=== PATIENT | female | born 1985 | race Caucasian/White ===

== ENCOUNTER 2020-10-08 13:21 | Emergency (ER) | payer OTHER, SELFPAY ==
[2020-10-08] VITALS (7 sets, daily range): BP systolic 136–175; BP diastolic 80–110; PULSE 80–100; RESP 18; TEMP 36.7–37.1; O2SAT 97–98; BMI 59.3
[2020-10-08 14:15] LABS: Glucose Urine UA NEG (NEG); Leukocyte Esterase Urine NEG (NEG); Nitrite Urine NEG (NEG); Urine Blood NEG (NEG); Urine Ketones NEG (NEG); Urine Protein NEG (NEG-TRACE)
[2020-10-08 14:17] LABS: Appearance Urine CLEAR; Color Urine YELLOW
[2020-10-08 14:57] LABS: MANUAL DIFF FLAG NO
[2020-10-08 14:59] LABS: Basophils Absolute Auto 0.1 X10*3/uL (0.0-0.2); Basophils Percent Auto 0.6 % (0-2); Eosinophils Absolute Auto 0.3 X10*3/uL (0.0-0.4); Eosinophils Percent Auto 2.2 % (0-4); Hematocrit 37.2 % (37-47); Imm Gran Abs Auto 0.26 X10*3/uL (0.00-0.03); Imm Gran Pct Auto 2.3 % (0.0-0.4); Lymphocytes Absolute Auto 3.3 X10*3/uL (1.2-4.9); Lymphocytes Percent Auto 28.5 % (20-40); Mean Corpuscular HGB Conc 32.3 g/dl (31.0-35.0); Mean Corpuscular Hemoglobin 29.1 pg (27.0-33.0); Mean Corpuscular Volume 90.3 fL (80-98); Mean Platelet Volume 9.4 fL (9.4-12.3); Monocytes Absolute Auto 0.5 X10*3/uL (0.1-1.2); Monocytes Percent Auto 4.3 % (2-11); Neutrophils Absolute Auto 7.2 X10*3/uL (2.0-8.3); Neutrophils Percent Auto 62.1 % (45-73); Platelet Count 381 X10*3/uL (160-400); Red Blood Count 4.12 X10*6/uL (4.20-5.50); Red Cell Distribution Width 12.5 % (11.0-16.0); White Blood Count 11.5 X10*3/uL (4.8-10.8)
[2020-10-08 15:40] LABS: Anion Gap 14 (12-20); Blood Urea Nitrogen 12 mg/dL (9-16); Calcium 9.4 mg/dL (8.4-10.2); Carbon Dioxide 24 mmol/L (22-29); Chloride 104 mmol/L (96-108); Creatinine Clr Calc Pharmacy 124.2; Estimated Glomerular Filt Rate > 60; Glucose Random 82 mg/dL (60-115); Potassium 4.6 mmol/L (3.3-5.1); Sodium 137 mmol/L (135-145)
--- NOTE | 2020-10-08 16:25 | ECG_ITS ---
Test Reason : NAUSEA Blood Pressure : / mmHG Vent. Rate : 085 BPM Atrial Rate : 085 BPM P-R Int : 128 ms QRS Dur : 094 ms QT Int : 360 ms P-R-T Axes : 047 057 020 degrees QTc Int : 428 ms Normal sinus rhythm Normal ECG When compared with ECG of 15-JAN-2020 11:57, No significant change was found Referred By: Darrian Kenny Electronically Signed By:Ramana Way
[2020-10-08 16:53] LABS: Alanine Aminotransferase 43 U/L (0-31); Alkaline Phosphatase 114 U/L (39-117); Aspartate Amino Transferase 33 U/L (5-31); Bilirubin Direct < 0.2 mg/dL (0.0-0.5); Bilirubin Total 0.5 mg/dL (0.0-1.0); Lipase 11 U/L (8-78); Total Protein 6.9 g/dL (6.5-8.0)
[2020-10-08] MEDS: ondansetron HCL 4 MG/2 ML VIAL IVPUSH (17:03)
[2020-10-08] MEDS: 0.9 % Sodium Chloride 1,000 ML 999 ML IVCONT (17:03)
[2020-10-08 17:37] LABS: Troponin-I High Sensitivity < 3.5 ng/L (<3.5-17.0)
[2020-10-08 18:13] LABS: Appearance Urine CLEAR; Color Urine YELLOW; Glucose Urine UA NEG (NEG); Leukocyte Esterase Urine NEG (NEG); Nitrite Urine NEG (NEG); Specific Gravity - Urine >= 1.030 (1.005-1.025); Urine Blood NEG (NEG); Urine Ketones 5 MG/DL (NEG); Urine Protein NEG (NEG-TRACE)
[2020-10-08 18:55] LABS: UPreg QC Valid YES; Urine Pregnancy NEGATIVE (NEGATIVE)
--- NOTE | 2020-10-08 19:19 | ED.NAVMDI ---
HPI - Nausea/Vomiting/Diarrhea General Chief complaint: Nausea/Vomiting/Diarrhea Stated complaint: N/V/D Time Seen by Provider: 10/08/20 15:59 History of Present Illness HPI Narrative: Attending Dr. Sanders Patient complains of nausea and frequent diarrhea for 5 days, she had some vomiting initially but now just feels nauseous and she is tolerating fluids and light foods, she does still feel mildly dizzy and has felt lightheaded and somewhat dizzy for the last 2 or 3 days, she has not fainted, she has had no chest pain no shortness of breath no palpitations, she has no abdominal pain, known else in the family is sick she has no recent travel no antibiotics, no fever no chills Related Data Previous Rx's Medication Instructions Recorded cetirizine 10 mg tablet 10 mg PO DAILY PRN 90 Days #90 tab 02/08/20 montelukast 10 mg tablet 10 mg PO DAILY 90 Days #90 tab 02/08/20 acetaminophen 650 mg 650 mg PO Q8H PRN 30 Days #90 tab 06/29/20 tablet,extended release nabumetone 750 mg tablet 750 mg PO BID PRN 90 Days #180 tab 06/29/20 fluticasone 232 mcg-salmeterol 14 1 inh PO BID #1 ea 07/03/20 mcg/actuation breath activated powdr tiotropium bromide 2.5 2 puff PO DAILY #12 g 07/23/20 mcg/actuation mist for inhalation topiramate 50 mg tablet 50 mg PO BEDTIME #30 tab 07/23/20 albuterol sulfate 90 mcg/actuation 2 puff PO Q4H PRN #18 g 08/01/20 aerosol inhaler cyclobenzaprine 10 mg tablet 10 mg PO TID PRN 30 Days #90 tab 08/02/20 meclizine 25 mg tablet 25 mg PO DAILY PRN #90 tab 08/06/20 loperamide [Imodium A-D] 2 mg PO Q4H PRN #10 tab 10/08/20 ondansetron HCl [Zofran] 4 mg PO Q6H PRN #10 tab 10/08/20 Allergies Allergy/AdvReac Type Severity Reaction Status Date / Time animal dander [PET DANDER] Allergy Unknown ITCHING Verified 10/08/20 13:49 bee pollen [BEE STINGS] Allergy Unknown SWELLING Verified 10/08/20 13:49 house dust Allergy Unknown Unknown Verified 10/08/20 13:49 shellfish derived Allergy Unknown SWELLING Verified 10/08/20 13:49 [SHELLFISH DERIVED] SEASONAL ALLERGIES Allergy Unknown ITCHING Uncoded 10/08/20 13:49 Review of Systems Review of Systems: Positive for nausea vomiting and diarrhea and dizziness Negatives are no fever no chills no fainting no feeling faint no headache no neck pain no palpitations no chest pain no shortness of breath no abdominal pain no blood in vomitus or stool, no dysuria no frequency, no skin rash, no confusion no weakness no numbness Yes all other systems are reviewed and are negative PMFSH Past Medical History Source: nursing notes reviewed Medical History (Updated 10/09/20 @ 00:01 by Sarah Olson) Allergic rhinitis Severe asthma with allergic rhinitis Vertigo Surgical History No pertinent past surgical history Family History Family History (Updated 04/21/20 @ 08:07 by MIKI Hagan) Father Lung cancer CVD (cardiovascular disease) Mother Past heart attack Diabetes Emphysema lung CVD (cardiovascular disease) Family/Other FH: mental illness Maternal Grandmother No problems noted. Paternal Grandmother No problems noted. Social History Social History Alcohol intake: never Patient Tobacco Use Status: Current everyday Tobacco user Physical Exam Vital Signs: Vital Signs: Last Vital Signs Temp 98.1 F 10/08/20 17:51 Pulse 97 10/08/20 19:35 Resp 18 10/08/20 16:32 BP 174/110 H 10/08/20 19:35 Pulse Ox 97 10/08/20 18:47 Body Mass Index 59.3 General appearance no acute distress The pupils are equal round reactive to light extraocular motions intact, they are anicteric without pallor The ears are clear with normal tympanic intact membrane as well as normal canals The sinus nontender The pharynx is clear without swelling redness or exudate, mucous membranes are somewhat dry Neck is supple Chest clear to auscultation bilateral The heart no murmur Abdomen soft nontender Extremities full range of motion x4 without tenderness or edema, no calf tenderness or swelling Skin no rash Neuro patient is A&O x3, communication both expression and comprehension are normal, gait and balance are normal, motor is 5/5 x4 and sensation station is symmetrical and intact Course Course Course Narrative: Patient with some nausea and diarrhea today and some vomiting several days ago as well as some dizziness including feeling lightheaded several days ago had no significant lab abnormality UA did show ketones, white count was 11 no other significant lab findings UA was negative otherwise than ketones and test was negative EKG showed a normal sinus rhythm with a ventricular rate of 85 NM interval was 128 QRS was 94 QTC 360, there were no ST elevations no acute ischemic findings on the EKG troponin was under 3.5, these tests were ordered because of the dizziness she never had chest pain or shortness of breath or diaphoresis and the dizziness has been going on for several days Patient felt significantly improved after Zofran and a L of fluids, with no dizziness and no nausea and tolerating p.o. now Repeat abdominal exam remains completely nontender without rebound or guarding She has had the diarrhea for 5 days, it is normal colored stool not watery no recent antibiotics no recent travel and she will be prescribed Imodium for the diarrhea and Zofran and advised to stay well hydrated She is advised to follow with primary doctor later in the week if diarrhea continues and return should he develop abdominal pain dehydration or any worse condition MDM - Nausea/Vomiting/Diarrhea Lab Data Attestation: I reviewed the patient's lab results. Result diagrams: 10/08/20 14:53 10/08/20 14:53 Labs: Lab Results 10/08/20 10/08/20 10/08/20 Range/Units 14:08 14:53 14:53 WBC 11.5 H (4.8-10.8) X10*3/uL RBC 4.12 L (4.20-5.50) X10*6/uL Hgb 12.0 (12.0-16.0) g/dl Hct 37.2 (37-47) % MCV 90.3 (80-98) fL MCH 29.1 (27.0-33.0) pg MCHC 32.3 (31.0-35.0) g/dl RDW 12.5 (11.0-16.0) % Plt Count 381 (160-400) X10*3/uL MPV 9.4 (9.4-12.3) fL Immature Gran % (Auto) 2.3 H (0.0-0.4) % Neut % (Auto) 62.1 (45-73) % Lymph % (Auto) 28.5 (20-40) % [place] % (Auto) 4.3 (2-11) % Eos % (Auto) 2.2 (0-4) % Baso % (Auto) 0.6 (0-2) % Lymph # (Auto) 3.3 (1.2-4.9) X10*3/uL [place] # (Auto) 0.5 (0.1-1.2) X10*3/uL Eos # (Auto) 0.3 (0.0-0.4) X10*3/uL Baso # (Auto) 0.1 (0.0-0.2) X10*3/uL Abs Immat Gran (auto) 0.26 H (0.00-0.03) X10*3/uL Absolute Neuts (auto) 7.2 (2.0-8.3) X10*3/uL Absolute Nucleated RBC 0.000 (0.0-0.012) X10*3/uL Nucleated RBC % (auto) 0.0 (0.0-0.2) /100WBC Sodium 137 (135-145) mmol/L Potassium 4.6 (3.3-5.1) mmol/L Chloride 104 (96-108) mmol/L Carbon Dioxide 24 (22-29) mmol/L Anion Gap 14 (12-20) BUN 12 (9-16) mg/dL Creatinine 0.87 (0.5-1.4) mg/dL Estim Creat Clear Calc 124.2 Estimated GFR > 60 Random Glucose 82 (60-115) mg/dL Calcium 9.4 (8.4-10.2) mg/dL Total Bilirubin 0.5 (0.0-1.0) mg/dL Direct Bilirubin < 0.2 (0.0-0.5) mg/dL AST 33 H (5-31) U/L ALT 43 H (0-31) U/L Alkaline Phosphatase 114 (39-117) U/L Troponin I High Sens (<3.5-17.0) ng/L Total Protein 6.9 (6.5-8.0) g/dL Albumin 4.0 (3.5-5.0) g/dL Lipase 11 (8-78) U/L Urine Color YELLOW Urine Appearance CLEAR Urine pH 7.0 (5.0-8.0) Ur Specific [place] 1.010 (1.005-1.025) Urine Protein NEG (NEG-TRACE) MG/DL Urine Glucose (UA) NEG (NEG) MG/DL Urine Ketones NEG (NEG) MG/DL Urine Blood NEG (NEG) Urine Nitrite NEG (NEG) Ur Leukocyte Esterase NEG (NEG) Urine Test (NEGATIVE) 10/08/20 10/08/20 10/08/20 Range/Units 16:55 18:03 18:03 WBC (4.8-10.8) X10*3/uL RBC (4.20-5.50) X10*6/uL Hgb (12.0-16.0) g/dl Hct (37-47) % MCV (80-98) fL MCH (27.0-33.0) pg MCHC (31.0-35.0) g/dl RDW (11.0-16.0) % Plt Count (160-400) X10*3/uL MPV (9.4-12.3) fL Immature Gran % (Auto) (0.0-0.4) % Neut % (Auto) (45-73) % Lymph % (Auto) (20-40) % [place] % (Auto) (2-11) % Eos % (Auto) (0-4) % Baso % (Auto) (0-2) % Lymph # (Auto) (1.2-4.9) X10*3/uL [place] # (Auto) (0.1-1.2) X10*3/uL Eos # (Auto) (0.0-0.4) X10*3/uL Baso # (Auto) (0.0-0.2) X10*3/uL Abs Immat Gran (auto) (0.00-0.03) X10*3/uL Absolute Neuts (auto) (2.0-8.3) X10*3/uL Absolute Nucleated RBC (0.0-0.012) X10*3/uL Nucleated RBC % (auto) (0.0-0.2) /100WBC Sodium (135-145) mmol/L Potassium (3.3-5.1) mmol/L Chloride (96-108) mmol/L Carbon Dioxide (22-29) mmol/L Anion Gap (12-20) BUN (9-16) mg/dL Creatinine (0.5-1.4) mg/dL Estim Creat Clear Calc Estimated GFR Random Glucose (60-115) mg/dL Calcium (8.4-10.2) mg/dL Total Bilirubin (0.0-1.0) mg/dL Direct Bilirubin (0.0-0.5) mg/dL AST (5-31) U/L ALT (0-31) U/L Alkaline Phosphatase (39-117) U/L Troponin I High Sens < 3.5 (<3.5-17.0) ng/L Total Protein (6.5-8.0) g/dL Albumin (3.5-5.0) g/dL Lipase (8-78) U/L Urine Color YELLOW Urine Appearance CLEAR Urine pH 6.0 (5.0-8.0) Ur Specific [place] >= 1.030 H (1.005-1.025) Urine Protein NEG (NEG-TRACE) MG/DL Urine Glucose (UA) NEG (NEG) MG/DL Urine Ketones 5 (NEG) MG/DL Urine Blood NEG (NEG) Urine Nitrite NEG (NEG) Ur Leukocyte Esterase NEG (NEG) Urine Test NEGATIVE (NEGATIVE) Discharge Plan Discharge Clinical Impression: Gastroenteritis Patient Disposition: Home, Self-Care Additional Instructions: Workup today showed mild dehydration which is best treated by drinking plenty of fluids There was no significant lab abnormality Your abdominal exam was normal no sign of any surgical emergency Use Imodium as needed for diarrhea Use Zofran as needed for nausea Drink plenty of fluids If nausea and diarrhea have not resolved in 2-3 days follow-up with primary doctor Return any time for abdominal pain dizziness dehydration any worse condition or any concerns Prescriptions: New loperamide [Imodium A-D] 2 mg tablet 2 mg PO Q4H PRN (Reason: loose stool) Qty: 10 RF: 0 ondansetron HCl [Zofran] 4 mg tablet 4 mg PO Q6H PRN (Reason: nausea and vomiting) Qty: 10 RF: 0 No Action cetirizine [All Day Allergy (cetirizine)] 10 mg tablet 10 mg PO DAILY PRN (Reason: allergy symptoms) 90 Days Qty: 90 RF: 3 montelukast 10 mg tablet 10 mg PO DAILY 90 Days Qty: 90 RF: 3 acetaminophen 650 mg tablet extended release 650 mg PO Q8H PRN (Reason: pain) 30 Days Qty: 90 RF: 3 nabumetone 750 mg tablet 750 mg PO BID PRN (Reason: pain) 90 Days Qty: 180 RF: 1 fluticasone propion-salmeterol 232-14 mcg/actuation aerosol powdr breath activated 1 inh PO BID Qty: 1 RF: 3 topiramate 50 mg tablet 50 mg PO BEDTIME Qty: 30 RF: 6 tiotropium bromide [Spiriva Respimat] 2.5 mcg/actuation mist 2 puff PO DAILY Qty: 12 RF: 6 albuterol sulfate [Ventolin HFA] 90 mcg/actuation HFA aerosol inhaler 2 puff PO Q4H PRN (Reason: shortness of breath or wheezing) Qty: 18 RF: 3 cyclobenzaprine 10 mg tablet 10 mg PO TID PRN (Reason: muscle spasm) 30 Days Qty: 90 RF: 3 meclizine 25 mg tablet 25 mg PO DAILY PRN (Reason: for motion sickness) Qty: 90 RF: 2 Interventions: ED Discharge Assessment Last Done: 10/08/20 20:26 Discharge Date/Time: 10/08/20 20:26
== END 2020-10-08 20:26 | disposition home or self-care (01) ==
PROVIDERS: Physician Assistant Medical; Emergency Provider Emergency Medicine Emergency Medical Services; PCP Internal Medicine
DX: K52.9 Noninfective gastroenteritis and colitis, unspecified (principal); R11.0 Nausea; F17.210 Nicotine dependence, cigarettes, uncomplicated
CPT/HCPCS: 36415; 80048; 80076; 81003; 81025; 83690; 84484; 85025; 93005; 96361; 96374; 99284; 99285; J2405

== ENCOUNTER 2021-03-19 09:35 | Emergency (ER) | payer OTHER, SELFPAY ==
[2021-03-19 09:45] VITALS: PULSE 112; O2SAT 95
[2021-03-19 09:49] VITALS: BP 115/76; PULSE 102; RESP 20; TEMP 37.4; O2SAT 97; BMI 56.0
--- NOTE | 2021-03-19 09:51 | ED_ITS ---
HPI - Dental/Oral General Chief complaint: Dental/Oral Stated complaint: TOOTHACHE Time Seen by Provider: 03/19/21 09:50 Source: patient Mode of arrival: ambulatory Limitations: no limitations History of Present Illness HPI Narrative: Patient with very poor dentition most of her teeth removed, now with left lower premolar with gum infection and toothache Complaint: tooth pain Onset (ago): month(s) Duration: constant Severity: mild Treatment prior to arrival: none Related Data Previous Rx's Medication Instructions Recorded tiotropium bromide 2.5 2 puff PO DAILY #12 g 07/23/20 mcg/actuation mist for inhalation (Spiriva Respimat) albuterol sulfate 90 mcg/actuation 2 puff PO Q4H PRN #18 g 08/01/20 aerosol inhaler (Ventolin HFA) meclizine 25 mg tablet 25 mg PO DAILY PRN #90 tab 08/06/20 loperamide 2 mg tablet (Imodium 2 mg PO Q4H PRN #10 tab 10/08/20 A-D) ondansetron HCl 4 mg tablet 4 mg PO Q6H PRN #10 tab 10/08/20 (Zofran) fluticasone propionate 50 1 spray INTRANASAL DAILY 30 Days 10/29/20 mcg/actuation nasal #16 g spray,suspension (Flonase Allergy Relief) umeclidinium 62.5 mcg/actuation 1 inh INHALATION BEDTIME 30 Days 11/10/20 blister powder for inhalation #30 ea (Incruse Ellipta) acetaminophen 650 mg 650 mg PO Q8H PRN 30 Days #90 tab 12/28/20 tablet,extended release atorvastatin 10 mg tablet 10 mg PO BEDTIME 90 Days #90 tab 12/28/20 cyclobenzaprine 10 mg tablet 10 mg PO TID PRN 30 Days #90 tab 12/28/20 montelukast 10 mg tablet 10 mg PO DAILY 90 Days #90 tab 12/28/20 nabumetone 750 mg tablet 750 mg PO BID PRN 90 Days #180 tab 12/28/20 omeprazole 20 mg capsule,delayed 20 mg PO DAILY 90 Days #90 cap 12/28/20 release cetirizine 10 mg tablet (All Day 10 mg PO DAILY PRN 90 Days #90 tab 01/13/21 Allergy (cetirizine)) albuterol sulfate 90 mcg/actuation 2 puff INHALATION Q6H PRN 30 Days 01/22/21 aerosol inhaler (ProAir HFA) #6.7 g fluticasone 232 mcg-salmeterol 14 1 inh PO BID #1 ea 02/15/21 mcg/actuation breath activated powdr topiramate 50 mg tablet 50 mg PO BEDTIME #30 tab 03/12/21 amoxicillin 875 mg tablet 875 mg PO BID #14 tab 03/19/21 naproxen 500 mg tablet (Naprosyn) 500 mg PO BID #20 tab 03/19/21 Allergies Allergy/AdvReac Type Severity Reaction Status Date / Time animal dander [PET DANDER] Allergy Unknown ITCHING Verified 10/08/20 13:49 bee pollen [BEE STINGS] Allergy Unknown SWELLING Verified 10/08/20 13:49 house dust Allergy Unknown Unknown Verified 10/08/20 13:49 shellfish derived Allergy Unknown SWELLING Verified 10/08/20 13:49 [SHELLFISH DERIVED] SEASONAL ALLERGIES Allergy Unknown ITCHING Uncoded 10/08/20 13:49 Review of Systems Constitutional: Constitutional: Reports no additional constitutional complaints Eyes: Eyes: Reports no additional eye complaints ENT: Denies dizziness Cardiovascular: Cardiovascular: Reports no additional cardiovascular complaints Respiratory: Respiratory: Reports as per HPI Gastrointestinal: Gastrointestinal: Reports no additional gastrointestinal complaints Genitourinary: Genitourinary: Reports no additional female genitourinary complaints Musculoskeletal: Musculoskeletal: Reports no additional musculoskeletal complaints Integumentary/Breasts: Skin/Breast: Denies rash Neurologic: Reports system reviewed and no additional complaints, except as documented, Denies dizziness and Denies Sensory deficit (Neuro) Psychiatric: Psychiatric: Denies anxiety [facility] Past Medical History Medical History Allergic rhinitis Severe asthma with allergic rhinitis Vertigo Surgical History No pertinent past surgical history Family History Family History Father Lung cancer CVD (cardiovascular disease) Mother Past heart attack Diabetes Emphysema lung CVD (cardiovascular disease) Family/Other FH: mental illness Maternal Grandmother No problems noted. Paternal Grandmother No problems noted. Social History Social History Alcohol intake: never Patient Tobacco Use Status: Current everyday Tobacco user Physical Exam Vital Signs: Vital Signs: Last Vital Signs Temp 99.4 F 03/19/21 09:49 Pulse 102 H 03/19/21 09:49 Resp 20 03/19/21 09:49 BP 115/76 03/19/21 09:49 Pulse Ox 97 03/19/21 09:49 Body Mass Index 56.0 Const: Other: unkept Nutritional Appearance: obese Orientat ion/consciousness: oriented to person and patient oriented x3 Limitations: no limitations HENMT: Other: tooth 20 and 21 with dental caries and inflammed gums Head: Yes normal to inspection Ears: external ears normal General nose exam: Normal external nose present Mouth: Normal oral and palatal mucosa present and oropharynx normal Teeth image: 1. Throat: Yes posterior oropharynx normal Eyes: General: appearance normal, both eyes and all related structures Neck: Other: supple Neck: Yes normal visual inspection Chest: Chest palpation & inspection: normal inspection of the chest Resp: Auscultation: clear to auscultation bilaterally Cardio: Jugular venous distension: no JVD Rate: regular rate Rhythm: regular rhythm Heart sounds: S1 normal heart sound present and S2 normal heart sound present GI: Inspection: Yes normal to inspection Palpation (GI): Soft to palpation, nontender and No hepatosplenomegaly present Auscultation: normal bowel sounds : General: Yes no CVA tenderness Back/Spine/Pelvis: Back: no CVA tenderness Skin: General skin exam: no rashes or lesions noted Neuro: General: oriented to person and patient oriented x3 Cranial nerves: Yes CN's II-XII intact bilaterally Motor exam (neuro): 5/5 motor strength present throughout Sensory Exam: No Sensory deficit (Neuro) Extrem: General: Yes normal to inspection Psych: Appearance: grossly normal Course Reevaluation(s) Reevaluation #1: patient with dental caries, periodontal disease and inflammed gums, will place on amoxicillin and nsaids Time: 09:56 Discharge Plan Discharge Clinical Impression: Dental caries, Toothache Patient Disposition: Home, Self-Care Instructions: Toothache (ED) Prescriptions: New amoxicillin 875 mg tablet 875 mg PO BID Qty: 14 RF: 0 naproxen [Naprosyn] 500 mg tablet 500 mg PO BID Qty: 20 RF: 0 No Action tiotropium bromide [Spiriva Respimat] 2.5 mcg/actuation mist 2 puff PO DAILY Qty: 12 RF: 6 albuterol sulfate [Ventolin HFA] 90 mcg/actuation HFA aerosol inhaler 2 puff PO Q4H PRN (Reason: shortness of breath or wheezing) Qty: 18 RF: 3 meclizine 25 mg tablet 25 mg PO DAILY PRN (Reason: for motion sickness) Qty: 90 RF: 2 fluticasone propionate [Flonase Allergy Relief] 50 mcg/actuation spray,suspension 1 spray intranasal DAILY 30 Days Qty: 16 RF: 3 Incruse Ellipta 62.5 mcg/actuation blister with device 1 inh inhalation BEDTIME 30 Days Qty: 30 RF: 6 montelukast 10 mg tablet 10 mg PO DAILY 90 Days Qty: 90 RF: 3 acetaminophen 650 mg tablet extended release 650 mg PO Q8H PRN (Reason: pain) 30 Days Qty: 90 RF: 3 nabumetone 750 mg tablet 750 mg PO BID PRN (Reason: pain) 90 Days Qty: 180 RF: 1 cyclobenzaprine 10 mg tablet 10 mg PO TID PRN (Reason: muscle spasm) 30 Days Qty: 90 RF: 3 atorvastatin 10 mg tablet 10 mg PO BEDTIME 90 Days Qty: 90 RF: 1 omeprazole 20 mg capsule,delayed release(DR/EC) 20 mg PO DAILY 90 Days Qty: 90 RF: 1 cetirizine [All Day Allergy (cetirizine)] 10 mg tablet 10 mg PO DAILY PRN (Reason: allergy symptoms) 90 Days Qty: 90 RF: 3 albuterol sulfate [ProAir HFA] 90 mcg/actuation HFA aerosol inhaler 2 puff inhalation Q6H PRN (Reason: shortness of breath or wheezing) 30 Days Qty: 6.7 RF: 2 fluticasone propion-salmeterol 232-14 mcg/actuation aerosol powdr breath activated 1 inh PO BID Qty: 1 RF: 3 topiramate 50 mg tablet 50 mg PO BEDTIME Qty: 30 RF: 6 loperamide [Imodium A-D] 2 mg tablet 2 mg PO Q4H PRN (Reason: loose stool) Qty: 10 RF: 0 ondansetron HCl [Zofran] 4 mg tablet 4 mg PO Q6H PRN (Reason: nausea and vomiting) Qty: 10 RF: 0 Referrals: Physician,Nonstaff [Physician] - 1 week
[2021-03-19] MEDS: Amoxicillin 500 MG CAPSULE 875 MG PO (10:31)
[2021-03-19] MEDS: Ketorolac Tromethamine 60 MG/2 ML VIAL IM (10:31)
== END 2021-03-19 10:31 | disposition home or self-care (01) ==
PROVIDERS: Emergency Provider Emergency Medicine; PCP Internal Medicine
DX: K02.9 Dental caries, unspecified (principal); J45.909 Unspecified asthma, uncomplicated
CPT/HCPCS: 96372; 99284; J1885

== ENCOUNTER 2021-09-11 11:55 | Emergency (ER) | payer OTHER, SELFPAY ==
[2021-09-11 12:00] VITALS: BP 130/67; PULSE 80; O2SAT 100
--- NOTE | 2021-09-11 12:21 | ECG_ITS ---
Test Reason : ABD PAIN Blood Pressure : / mmHG Vent. Rate : 092 BPM Atrial Rate : 092 BPM P-R Int : 132 ms QRS Dur : 086 ms QT Int : 372 ms P-R-T Axes : 036 045 009 degrees QTc Int : 460 ms Normal sinus rhythm Normal ECG When compared with ECG of 08-OCT-2020 16:35, T wave amplitude has decreased in Anterior leads Referred By: Frida Velázquez Electronically Signed By:SREEKANTH MCLEAN MD
[2021-09-11 12:54] LABS: MANUAL DIFF FLAG NO
[2021-09-11 12:55] LABS: Basophils Absolute Auto 0.1 X10*3/uL (0.0-0.2); Basophils Percent Auto 0.4 % (0-2); Eosinophils Absolute Auto 0.2 X10*3/uL (0.0-0.4); Eosinophils Percent Auto 1.9 % (0-4); Hemoglobin 12.1 g/dl (12.0-16.0); Imm Gran Abs Auto 0.22 X10*3/uL (0.00-0.03); Imm Gran Pct Auto 1.8 % (0.0-0.4); Lymphocytes Absolute Auto 2.9 X10*3/uL (1.2-4.9); Lymphocytes Percent Auto 23.9 % (20-40); Mean Corpuscular HGB Conc 31.8 g/dl (31.0-35.0); Mean Corpuscular Hemoglobin 28.2 pg (27.0-33.0); Mean Corpuscular Volume 88.6 fL (80.0-98.0); Mean Platelet Volume 9.1 fL (9.4-12.3); Monocytes Absolute Auto 0.4 X10*3/uL (0.1-1.2); Monocytes Percent Auto 3.4 % (2-11); Neutrophils Absolute Auto 8.5 x10*3/uL (2.0-8.3); Neutrophils Percent Auto 68.6 % (45-73); Platelet Count 363 X10*3/uL (160-400); Red Blood Count 4.29 X10*6/uL (4.20-5.50); Red Cell Distribution Width 12.3 % (11.0-16.0); White Blood Count 12.3 X10*3/uL (4.8-10.8)
[2021-09-11 13:02] LABS: Appearance Urine CLEAR; Glucose Urine UA NEG (NEG); Leukocyte Esterase Urine TRACE (NEG); Nitrite Urine NEG (NEG); Specific Gravity - Urine <= 1.005 (1.005-1.025); Urine Blood NEG (NEG); Urine Ketones NEG (NEG); Urine Protein NEG (NEG-TRACE)
[2021-09-11 13:03] LABS: Color Urine COLORLESS
[2021-09-11 13:11] LABS: Squamous Epithelial Cell Urine 2+ /LPF
[2021-09-11 13:12] LABS: Bacteria Urine TRACE /LPF; Mucus Urine TRACE /LPF; RBC Urine 0 /HPF (0)
[2021-09-11 13:12] LABS: Alanine Aminotransferase 19 U/L (0-31); Alkaline Phosphatase 117 U/L (39-117); Anion Gap 13 (12-20); Aspartate Amino Transferase 14 U/L (5-31); Bilirubin Direct < 0.2 mg/dL (0.0-0.5); Bilirubin Total 0.3 mg/dL (0.0-1.0); Blood Urea Nitrogen 10 mg/dL (9-16); Calcium 9.4 mg/dL (8.4-10.2); Carbon Dioxide 23 mmol/L (22-29); Chloride 105 mmol/L (96-108); Estimated Glomerular Filt Rate > 60; Glucose Random 95 mg/dL (60-115); Lipase < 4 U/L (8-78); Magnesium 2.1 mg/dL (1.6-2.6); Potassium 4.2 mmol/L (3.3-5.1); Sodium 137 mmol/L (135-145)
[2021-09-11 13:23] LABS: COVID-19 Test Negative (Negative); IDNOW Serial# 16C4AD1C
[2021-09-11 13:24] LABS: Influenza A Negative (Negative); Influenza B2 Negative (Negative)
[2021-09-11 13:25] VITALS: BP 145/72; PULSE 82
[2021-09-11 13:26] VITALS: BP 138/79; BP 146/87; PULSE 88; PULSE 91
[2021-09-11] MEDS: 0.9 % Sodium Chloride 1,000 ML 999 ML IV (14:36)
--- NOTE | 2021-09-11 15:30 | ED.WEAKNESS ---
HPI - Weakness General Stated complaint: DIZZY,NAUSEA,WEAKNESS X'S 1 WEEK PER EMS Time Seen by Provider: 09/11/21 12:16 Source: patient Mode of arrival: ambulatory History of Present Illness HPI Narrative: 28-year-old female with a past medical history of allergic rhinitis, vertigo, presenting to the ED complaining of generalized weakness and lightheadedness x1 week. Also reports nausea and loss of smell. Denies room spinning dizziness, CP, SOB, abdominal pain,, diarrhea, fever, recent travel, cough MD Complaint: generalized weakness and lack of energy Onset (ago): day(s) Related Data Previous Rx's Medication Instructions Recorded tiotropium bromide 2.5 2 puff PO DAILY #12 g 07/23/20 mcg/actuation mist for inhalation (Spiriva Respimat) loperamide 2 mg tablet (Imodium 2 mg PO Q4H PRN #10 tab 10/08/20 A-D) ondansetron HCl 4 mg tablet 4 mg PO Q6H PRN #10 tab 10/08/20 (Zofran) montelukast 10 mg tablet 10 mg PO DAILY 90 Days #90 tab 12/28/20 topiramate 50 mg tablet 50 mg PO BEDTIME #30 tab 03/12/21 amoxicillin 875 mg tablet 875 mg PO BID #14 tab 03/19/21 nabumetone 750 mg tablet 750 mg PO BID PRN 90 Days #180 tab 03/26/21 omeprazole 20 mg capsule,delayed 20 mg PO DAILY 90 Days #90 cap 03/26/21 release buspirone 30 mg tablet 30 mg PO BID 90 Days #180 tab 04/09/21 sertraline 50 mg tablet 50 mg PO DAILY 90 Days #90 tab 04/09/21 trazodone 100 mg tablet 200 mg PO BEDTIME 90 Days #180 tab 04/09/21 ziprasidone HCl 80 mg capsule 80 mg PO BID 90 Days #180 cap 04/09/21 albuterol sulfate 90 mcg/actuation 2 puff INHALATION Q6H PRN 30 Days 04/10/21 aerosol inhaler (ProAir HFA) #6.7 g umeclidinium 62.5 mcg/actuation 1 inh INHALATION BEDTIME 30 Days 05/20/21 blister powder for inhalation #30 ea (Incruse Ellipta) fluticasone propionate 50 1 spray INTRANASAL DAILY 30 Days 06/12/21 mcg/actuation nasal #16 g spray,suspension (Flonase Allergy Relief) fluticasone 232 mcg-salmeterol 14 1 inh PO BID #1 ea 06/18/21 mcg/actuation breath activated powdr acetaminophen 650 mg 650 mg PO Q8H PRN 30 Days #90 tab 06/26/21 tablet,extended release atorvastatin 10 mg tablet 10 mg PO BEDTIME 90 Days #90 tab 06/26/21 cetirizine 10 mg tablet (All Day 10 mg PO DAILY PRN 90 Days #90 tab 06/26/21 Allergy (cetirizine)) cyclobenzaprine 10 mg tablet 10 mg PO TID PRN 30 Days #90 tab 06/26/21 naproxen 500 mg tablet (Naprosyn) 500 mg PO BID #20 tab 06/26/21 albuterol sulfate 90 mcg/actuation 2 puff PO Q4H PRN #18 g 07/18/21 aerosol inhaler (Ventolin HFA) meclizine 25 mg tablet 25 mg PO DAILY PRN #90 tab 07/31/21 Allergies Allergy/AdvReac Type Severity Reaction Status Date / Time animal dander [PET DANDER] Allergy Unknown ITCHING Verified 10/08/20 13:49 bee pollen [BEE STINGS] Allergy Unknown SWELLING Verified 10/08/20 13:49 house dust Allergy Unknown Unknown Verified 10/08/20 13:49 shellfish derived Allergy Unknown SWELLING Verified 10/08/20 13:49 [SHELLFISH DERIVED] SEASONAL ALLERGIES Allergy Unknown ITCHING Uncoded 10/08/20 13:49 Review of Systems Review of Systems: Constitutional: No Fever, No Chills, + Fatigue, + Malaise ENT/Mouth: No Ear Pain, No Nasal Congestion, No sore throat, No Rhinorrhea, No Swallowing Difficulty Eyes: No Eye Pain, No Swelling, No Redness, No Discharge Cardiovascular: No Chest Pain, No SOB, No Dyspnea on Exertion, No Orthopnea, No Edema, No Palpitations Respiratory: No Cough, No Sputum, No Dyspnea Gastrointestinal: + Nausea, No Vomiting, No Diarrhea, No Constipation, No Abdominal pain Genitourinary: No irregular bleeding, No Dysuria, No Urinary Frequency, No Hematuria Musculoskeletal: No joint pain, No Myalgias, No Joint Swelling Skin: No Skin Lesions, No rash Neuro: + Weakness, No Numbness, No Paresthesias, No Loss of Consciousness, No Dizziness, No Headache Yes all other systems are reviewed and are negative Neurologic: Denies Abnormal speech present [facility] Past Medical History Attestation statement: The following information was validated with the patient. Medical History Allergic rhinitis Severe asthma with allergic rhinitis Vertigo Surgical History No pertinent past surgical history Family History Family History Father Lung cancer CVD (cardiovascular disease) Mother Past heart attack Diabetes Emphysema lung CVD (cardiovascular disease) Family/Other FH: mental illness Maternal Grandmother No problems noted. Paternal Grandmother No problems noted. Social History Social History Alcohol intake: never Patient Tobacco Use Status: Current everyday Tobacco user Advance Directives: No Advance Directives Information Provided: No Physical Exam Vital Signs: Vital Signs: Last Vital Signs Pulse 91 09/11/21 13:26 BP 146/87 H 09/11/21 13:26 Const: General: cooperative, healthy appearing, no acute distress, alert, awake and Physically active Orientation/consciousness: patient oriented x3 Limitations: no limitations HEENT: Head: Yes normal to inspection and Yes atraumatic Ears: hearing grossly normal bilaterally General nose exam: Normal external nose present Face and sinus: Yes normal facial exam Throat: Yes posterior oropharynx normal Eyes: General: appearance normal, both eyes and all related structures Pupils: Equal, round and reactive pupils present EOM: EOMs intact bilaterally Neck: Neck: Yes normal visual inspection and Yes no meningeal signs Resp: Effort & Inspection: normal respiratory effort and no respiratory distress Auscultation: clear to auscultation bilaterally, no rales, no rhonchi and no wheezes Cardio: Rate: regular rate Heart sounds: S1 normal heart sound present and S2 normal heart sound present GI: Inspection: Yes normal to inspection Palpation (GI): Soft to palpation, nontender, no guarding and not rigid : General: Yes no CVA tenderness Back/Spine/Pelvis: Back: no CVA tenderness Skin: Rashes: no rashes Wounds: no wounds Neuro: General: patient oriented x3, gait normal, tone normal, moves all extremities, no meningeal signs, no focal motor deficits and CN's II-XI intact bilaterally Cranial nerves: Yes CN's II-XII intact bilaterally and Yes Equal, round and reactive pupils present Cognition (Neuro): normal cognition Speech: No Abnormal speech present Gait exam (Neuro): Normal gait present Motor exam (neuro): 5/5 motor strength present throughout and Pronator motor function not present Extrem: General: Yes normal to inspection and Yes no pedal edema Course Course Course Narrative: - mild leukocytosis of 12.3, labs otherwise unremarkable. UA contaminated/not infected - COVID-19/influenza negative - orthostatic vital signs negative -1534-- on re-evaluation patient reports symptomatic improvement. Results discussed including worrisome signs and symptoms and strict return precautions and need to follow-up with PCP. She verbalized understanding and feels safe for discharge home MDM - Weakness MDM Narrative Medical decision making narrative: 28-year-old female with a past medical history of allergic rhinitis, vertigo, presenting to the ED complaining of generalized weakness and lightheadedness x1 week. on exam vital signs stable, NAD/ nontoxic-appearing from exam nonfocal. No focal neuro deficits. Concern for dehydration versus metabolic abnormalities and rule out infectious etiology versus viral syndrome. Atypical for ACS/PE. Plan: EKG, labs, UA, orthostatics Medical Records Attestation: I reviewed the patient's medical records. Lab Data Attestation: I reviewed the patient's lab results. Result diagrams: 09/11/21 12:49 09/11/21 12:49 Labs: Lab Results 09/11/21 09/11/21 09/11/21 Range/Units 12:46 12:46 12:49 WBC 12.3 H (4.8-10.8) X10*3/uL RBC 4.29 (4.20-5.50) X10*6/uL Hgb 12.1 (12.0-16.0) g/dl Hct 38.0 (37.0-47.0) % MCV 88.6 (80.0-98.0) fL MCH 28.2 (27.0-33.0) pg MCHC 31.8 (31.0-35.0) g/dl RDW 12.3 (11.0-16.0) % Plt Count 363 (160-400) X10*3/uL MPV 9.1 L (9.4-12.3) fL Immature Gran % (Auto) 1.8 H (0.0-0.4) % Neut % (Auto) 68.6 (45-73) % Lymph % (Auto) 23.9 (20-40) % [place] % (Auto) 3.4 (2-11) % Eos % (Auto) 1.9 (0-4) % Baso % (Auto) 0.4 (0-2) % Lymph # (Auto) 2.9 (1.2-4.9) X10*3/uL [place] # (Auto) 0.4 (0.1-1.2) X10*3/uL Eos # (Auto) 0.2 (0.0-0.4) X10*3/uL Baso # (Auto) 0.1 (0.0-0.2) X10*3/uL Abs Immat Gran (auto) 0.22 H (0.00-0.03) X10*3/uL Absolute Neuts (auto) 8.5 H (2.0-8.3) x10*3/uL Absolute Nucleated RBC 0.000 (0.0-0.012) X10*3/uL Nucleated RBC % (auto) 0.0 (0.0-0.2) /100WBC Sodium (135-145) mmol/L Potassium (3.3-5.1) mmol/L Chloride (96-108) mmol/L Carbon Dioxide (22-29) mmol/L Anion Gap (12-20) BUN (9-16) mg/dL Creatinine (0.5-1.4) mg/dL Estim Creat Clear Calc Estimated GFR Random Glucose (60-115) mg/dL Calcium (8.4-10.2) mg/dL Magnesium (1.6-2.6) mg/dL Total Bilirubin (0.0-1.0) mg/dL Direct Bilirubin (0.0-0.5) mg/dL AST (5-31) U/L ALT (0-31) U/L Alkaline Phosphatase (39-117) U/L Total Protein (6.5-8.0) g/dL Albumin (3.5-5.0) g/dL Lipase (8-78) U/L Urine Color Urine Appearance Urine pH (5.0-8.0) Ur Specific [place] (1.005-1.025) Urine Protein (NEG-TRACE) MG/DL Urine Glucose (UA) (NEG) MG/DL Urine Ketones (NEG) MG/DL Urine Blood (NEG) Urine Nitrite (NEG) Ur Leukocyte Esterase (NEG) Urine RBC (0) /HPF Urine WBC (0-4) /HPF Ur Squamous Epith Cells /LPF Urine Bacteria /LPF Urine Mucus /LPF COVID-19 (RONY) Negative (Negative) COVID-19 Clin Com See Note Influenza Type A (VAN) Negative (Negative) Influenza Type B (VAN) Negative (Negative) Influenza A & B Note See Note 09/11/21 09/11/21 Range/Units 12:49 12:53 WBC (4.8-10.8) X10*3/uL RBC (4.20-5.50) X10*6/uL Hgb (12.0-16.0) g/dl Hct (37.0-47.0) % MCV (80.0-98.0) fL MCH (27.0-33.0) pg MCHC (31.0-35.0) g/dl RDW (11.0-16.0) % Plt Count (160-400) X10*3/uL MPV (9.4-12.3) fL Immature Gran % (Auto) (0.0-0.4) % Neut % (Auto) (45-73) % Lymph % (Auto) (20-40) % [place] % (Auto) (2-11) % Eos % (Auto) (0-4) % Baso % (Auto) (0-2) % Lymph # (Auto) (1.2-4.9) X10*3/uL [place] # (Auto) (0.1-1.2) X10*3/uL Eos # (Auto) (0.0-0.4) X10*3/uL Baso # (Auto) (0.0-0.2) X10*3/uL Abs Immat Gran (auto) (0.00-0.03) X10*3/uL Absolute Neuts (auto) (2.0-8.3) x10*3/uL Absolute Nucleated RBC (0.0-0.012) X10*3/uL Nucleated RBC % (auto) (0.0-0.2) /100WBC Sodium 137 (135-145) mmol/L Potassium 4.2 (3.3-5.1) mmol/L Chloride 105 (96-108) mmol/L Carbon Dioxide 23 (22-29) mmol/L Anion Gap 13 (12-20) BUN 10 (9-16) mg/dL Creatinine 0.86 (0.5-1.4) mg/dL Estim Creat Clear Calc TNP Estimated GFR > 60 Random Glucose 95 (60-115) mg/dL Calcium 9.4 (8.4-10.2) mg/dL Magnesium 2.1 (1.6-2.6) mg/dL Total Bilirubin 0.3 (0.0-1.0) mg/dL Direct Bilirubin < 0.2 (0.0-0.5) mg/dL AST 14 D (5-31) U/L ALT 19 (0-31) U/L Alkaline Phosphatase 117 (39-117) U/L Total Protein 7.0 (6.5-8.0) g/dL Albumin 4.0 (3.5-5.0) g/dL Lipase < 4 L (8-78) U/L Urine Color COLORLESS Urine Appearance CLEAR Urine pH 7.0 (5.0-8.0) Ur Specific [place] <= 1.005 (1.005-1.025) Urine Protein NEG (NEG-TRACE) MG/DL Urine Glucose (UA) NEG (NEG) MG/DL Urine Ketones NEG (NEG) MG/DL Urine Blood NEG (NEG) Urine Nitrite NEG (NEG) Ur Leukocyte Esterase TRACE H (NEG) Urine RBC 0 (0) /HPF Urine WBC 1-4 (0-4) /HPF Ur Squamous Epith Cells 2+ /LPF Urine Bacteria TRACE /LPF Urine Mucus TRACE /LPF COVID-19 (RONY) (Negative) COVID-19 Clin Com Influenza Type A (VAN) (Negative) Influenza Type B (VAN) (Negative) Influenza A & B Note ECG Data Attestation: I personally reviewed and interpreted this ECG as follows: ECG interpretation date: 09/11/21 ECG interpretation time: 12:32 Interpretation: EKG normal sinus rhythm at a rate of 92. QTC 460. AR 132. No STEMI Discharge Plan Discharge Clinical Impression: Generalized weakness, Lightheadedness Patient Disposition: Home, Self-Care Instructions: Weakness (ED), Lightheadedness (ED) Additional Instructions: your blood work was reassuring today in the emergency department. He tested negative for COVID-19 and the flu. Please stay hydrated. If her symptoms persist or worsen please return to the emergency department please follow-up with her doctor Prescriptions: No Action tiotropium bromide [Spiriva Respimat] 2.5 mcg/actuation mist 2 puff PO DAILY Qty: 12 6RF montelukast 10 mg tablet 10 mg PO DAILY 90 Days Qty: 90 3RF topiramate 50 mg tablet 50 mg PO BEDTIME Qty: 30 6RF nabumetone 750 mg tablet 750 mg PO BID PRN (Reason: pain) 90 Days Qty: 180 1RF omeprazole 20 mg capsule,delayed release(DR/EC) 20 mg PO DAILY 90 Days Qty: 90 1RF sertraline 50 mg tablet 50 mg PO DAILY 90 Days Qty: 90 1RF buspirone 30 mg tablet 30 mg PO BID 90 Days Qty: 180 1RF trazodone 100 mg tablet 200 mg PO BEDTIME 90 Days Qty: 180 0RF ziprasidone HCl 80 mg capsule 80 mg PO BID 90 Days Qty: 180 0RF Rx Instructions: give with food (meal/snack) albuterol sulfate [ProAir HFA] 90 mcg/actuation HFA aerosol inhaler 2 puff inhalation Q6H PRN (Reason: shortness of breath or wheezing) 30 Days Qty: 6.7 2RF Incruse Ellipta 62.5 mcg/actuation blister with device 1 inh inhalation BEDTIME 30 Days Qty: 30 6RF fluticasone propionate [Flonase Allergy Relief] 50 mcg/actuation spray,suspension 1 spray intranasal DAILY 30 Days Qty: 16 3RF Rx Instructions: administer into each nostril fluticasone propion-salmeterol 232-14 mcg/actuation aerosol powdr breath activated 1 inh PO BID Qty: 1 3RF atorvastatin 10 mg tablet 10 mg PO BEDTIME 90 Days Qty: 90 1RF cyclobenzaprine 10 mg tablet 10 mg PO TID PRN (Reason: muscle spasm) 30 Days Qty: 90 3RF acetaminophen 650 mg tablet extended release 650 mg PO Q8H PRN (Reason: pain) 30 Days Qty: 90 3RF cetirizine [All Day Allergy (cetirizine)] 10 mg tablet 10 mg PO DAILY PRN (Reason: allergy symptoms) 90 Days Qty: 90 3RF naproxen [Naprosyn] 500 mg tablet 500 mg PO BID Qty: 20 0RF albuterol sulfate [Ventolin HFA] 90 mcg/actuation HFA aerosol inhaler 2 puff PO Q4H PRN (Reason: shortness of breath or wheezing) Qty: 18 3RF meclizine 25 mg tablet 25 mg PO DAILY PRN (Reason: for motion sickness) Qty: 90 2RF loperamide [Imodium A-D] 2 mg tablet 2 mg PO Q4H PRN (Reason: loose stool) Qty: 10 0RF Rx Instructions: administer after each loose stool until symptoms controlled; do not exceed 8 mg per 24 hrs ondansetron HCl [Zofran] 4 mg tablet 4 mg PO Q6H PRN (Reason: nausea and vomiting) Qty: 10 0RF amoxicillin 875 mg tablet 875 mg PO BID Qty: 14 0RF Referrals: Roxie Guevara MD [Primary Care Provider] - 2 days
--- NOTE | 2021-09-11 15:33 | PC.NURSE ---
pt reports feeling better. skin pwd. no vomiting. provider at bedside to discuss disposition to home.
[2021-09-11 15:34] VITALS: BP 137/80; PULSE 80; RESP 18; TEMP 36.8; O2SAT 98
== END 2021-09-11 16:42 | disposition home or self-care (01) ==
PROVIDERS: Physician Assistant; Emergency Provider Emergency Medicine; PCP Internal Medicine
DX: R42 Dizziness and giddiness (principal); R53.1 Weakness; J30.9 Allergic rhinitis, unspecified; Z79.899 Other long term (current) drug therapy; F17.200 Nicotine dependence, unspecified, uncomplicated; Z71.6 Tobacco abuse counseling; Z20.822 Contact with and (suspected) exposure to COVID-19
CPT/HCPCS: 36415; 80048; 80076; 81001; 81003; 83690; 83735; 85025; 87502; 87635; 93005; 99283

== ENCOUNTER 2021-11-01 03:06 | Emergency (ER) | payer OTHER, MEDICAID, SELFPAY ==
--- NOTE | 2021-11-01 | ECG_ITS ---
Test Reason : cp Blood Pressure : / mmHG Vent. Rate : 098 BPM Atrial Rate : 098 BPM P-R Int : 132 ms QRS Dur : 082 ms QT Int : 336 ms P-R-T Axes : 039 054 014 degrees QTc Int : 428 ms Normal sinus rhythm Normal ECG When compared with ECG of 11-SEP-2021 12:32, No significant change was found Referred By: Generic ED Physician Electronically Signed By:CÉSAR RASMUSSEN
--- NOTE | ~2021-11-01 | XR_ITS ---
EXAMINATION: XR CHEST CLINICAL INFORMATION: Right-sided chest pain COMPARISON: 02/17/2019 TECHNIQUE: Frontal view of the chest was obtained. FINDINGS: The lungs are well expanded. There is no focal consolidation, edema, or effusion. No pneumothorax. The cardiomediastinal silhouette is within normal limits. No acute osseous abnormality. XR/XR chest 1V IMPRESSION: Clear lungs.
[2021-11-01 03:13] VITALS: BP 116/62; PULSE 100; RESP 20; TEMP 37.1; O2SAT 97; BMI 56.4
--- NOTE | 2021-11-01 03:33 | ED_ITS ---
HPI - Chest Pain General Chief Complaint: Chest Pain Stated Complaint: Chest pain Time Seen by Provider: 11/01/21 03:26 Source: patient Mode of arrival: ambulatory Limitations: no limitations History of Present Illness HPI narrative: patient history of COPD still smoker been having right-sided chest pain for last 2 weeks notation with breathing no relation with movements feels deeper sharp pain no cough no fever no chills no palpitation does not feel pain gets worse with deep breaths or coughing no leg swelling or pain never had any coronary event in the past patient does have questionable sleep apnea but never been tested Related Data Previous Rx's Medication Instructions Recorded tiotropium bromide 2.5 2 puff PO DAILY #12 grams 07/23/20 mcg/actuation mist for inhalation (Spiriva Respimat) loperamide 2 mg tablet (Imodium 2 mg PO Q4H PRN loose stool #10 10/08/20 A-D) tabs ondansetron HCl 4 mg tablet 4 mg PO Q6H PRN nausea and 10/08/20 (Zofran) vomiting #10 tabs montelukast 10 mg tablet 10 mg PO DAILY 90 days #90 tabs 12/28/20 amoxicillin 875 mg tablet 875 mg PO BID #14 tabs 03/19/21 nabumetone 750 mg tablet 750 mg PO BID PRN pain 90 days 03/26/21 #180 tabs omeprazole 20 mg capsule,delayed 20 mg PO DAILY 90 days #90 caps 03/26/21 release buspirone 30 mg tablet 30 mg PO BID 90 days #180 tabs 04/09/21 sertraline 50 mg tablet 50 mg PO DAILY 90 days #90 tabs 04/09/21 trazodone 100 mg tablet 200 mg PO BEDTIME 90 days #180 tabs 04/09/21 ziprasidone HCl 80 mg capsule 80 mg PO BID 90 days #180 caps 04/09/21 albuterol sulfate 90 mcg/actuation 2 puff inhalation Q6H PRN 04/10/21 aerosol inhaler (ProAir HFA) shortness of breath or wheezing 30 days #6.7 grams umeclidinium 62.5 mcg/actuation 1 inh inhalation BEDTIME 30 days 05/20/21 blister powder for inhalation #30 ea (Incruse Ellipta) atorvastatin 10 mg tablet 10 mg PO BEDTIME 90 days #90 tabs 06/26/21 cetirizine 10 mg tablet (All Day 10 mg PO DAILY PRN allergy 06/26/21 Allergy (cetirizine)) symptoms 90 days #90 tabs naproxen 500 mg tablet (Naprosyn) 500 mg PO BID #20 tabs 06/26/21 meclizine 25 mg tablet 25 mg PO DAILY PRN for motion 07/31/21 sickness #90 tabs fluticasone propionate 50 1 spray intranasal DAILY 30 days 10/06/21 mcg/actuation nasal #16 grams spray,suspension (Flonase Allergy Relief) topiramate 50 mg tablet 50 mg PO BEDTIME #30 tabs 10/07/21 albuterol sulfate 2.5 mg (3 mL) inhalation Q6H PRN 10/08/21 bronchospasm 30 days #360 mL cyclobenzaprine 10 mg tablet 10 mg PO TID PRN muscle spasm 30 10/10/21 days #90 tabs acetaminophen 650 mg 650 mg PO Q8H PRN pain 30 days #90 10/14/21 tablet,extended release tabs fluticasone 232 mcg-salmeterol 14 1 inh PO BID #1 ea 10/14/21 mcg/actuation breath activated powdr albuterol sulfate 90 mcg/actuation 2 puff PO Q4H PRN shortness of 10/25/21 aerosol inhaler (Ventolin HFA) breath or wheezing #18 grams ibuprofen 600 mg tablet 600 mg PO Q6H PRN pain #20 tabs 11/01/21 Allergies Allergy/AdvReac Type Severity Reaction Status Date / Time animal dander [PET DANDER] Allergy Unknown ITCHING Verified 10/08/20 13:49 bee pollen [BEE STINGS] Allergy Unknown SWELLING Verified 10/08/20 13:49 house dust Allergy Unknown Unknown Verified 10/08/20 13:49 shellfish derived Allergy Unknown SWELLING Verified 10/08/20 13:49 [SHELLFISH DERIVED] SEASONAL ALLERGIES Allergy Unknown ITCHING Uncoded 10/08/20 13:49 Review of Systems Review of Systems: Yes all other systems are reviewed and are negative PMFSH Past Medical History Medical History Allergic rhinitis Severe asthma with allergic rhinitis Vertigo Surgical History No pertinent past surgical history Family History Family History Father Lung cancer CVD (cardiovascular disease) Mother Past heart attack Diabetes Emphysema lung CVD (cardiovascular disease) Family/Other FH: mental illness Maternal Grandmother No problems noted. Paternal Grandmother No problems noted. Social History Social History Alcohol intake: never Patient Tobacco Use Status: Current everyday Tobacco user Advance Directives: No Physical Exam Vital Signs: Vital Signs: Last Vital Signs Temp 98.3 F 11/01/21 05:00 Pulse 95 11/01/21 05:00 Resp 18 11/01/21 05:00 BP 114/67 11/01/21 05:00 Pulse Ox 98 11/01/21 05:00 O2 Del Method 11/01/21 05:00 BMI result Body Mass Index 56.4 Appearance: Alert. Oriented X3. No acute distress. Eyes: no pallor or icterus ENT: Pharynx normal. Oral Mucosa moist Neck: Normal inspection. Neck supple. CVS: Normal heart rate and rhythm. Pulses normal. Respiratory: No respiratory distress. Equal air entry bilateral, no wheezing/rales/rhonchi no chest wall pain Abdomen: Soft and nontender. Bowel sounds are present, no mass palpable, no CVA tenderness Skin: Skin warm and dry. Normal skin color. Normal skin turgor. Extremities: No lower extremity edema. No calf tenderness Neuro: Oriented X 3. No motor deficit. No sensory deficit.No cerebellar signs , cranial nerves II-XII intact MDM - Chest Pain MDM Narrative Medical decision making narrative: patient with atypical right-sided pain for 2 weeks normal EKG normal troponin normal D-dimer chest x-ray negative likely musculoskeletal pain will discharge patient home on ibuprofen advised to follow with PCP for further evaluation Differential Diagnosis Differential diagnosis: Likely pneumothorax, atypical chest pain and costochondritis Lab Data Attestation: I reviewed the patient's lab results. Result diagrams: 11/01/21 03:29 11/01/21 03:29 Labs: Lab Results 11/01/21 11/01/21 11/01/21 Range/Units 03:29 03:29 03:29 WBC 9.2 (4.8-10.8) X10*3/uL RBC 4.09 L (4.20-5.50) X10*6/uL Hgb 11.7 L (12.0-16.0) g/dl Hct 36.4 L (37.0-47.0) % MCV 89.0 (80.0-98.0) fL MCH 28.6 (27.0-33.0) pg MCHC 32.1 (31.0-35.0) g/dl RDW 12.5 (11.0-16.0) % Plt Count 337 (160-400) X10*3/uL MPV 9.1 L (9.4-12.3) fL Immature Gran % (Auto) 2.1 H (0.0-0.4) % Neut % (Auto) 64.1 (45-73) % Lymph % (Auto) 26.5 (20-40) % [place] % (Auto) 4.2 (2-11) % Eos % (Auto) 2.6 (0-4) % Baso % (Auto) 0.5 (0-2) % Lymph # (Auto) 2.4 (1.2-4.9) X10*3/uL [place] # (Auto) 0.4 (0.1-1.2) X10*3/uL Eos # (Auto) 0.2 (0.0-0.4) X10*3/uL Baso # (Auto) 0.1 (0.0-0.2) X10*3/uL Abs Immat Gran (auto) 0.19 H (0.00-0.03) X10*3/uL Absolute Neuts (auto) 5.9 (2.0-8.3) x10*3/uL Absolute Nucleated RBC 0.000 (0.0-0.012) X10*3/uL Nucleated RBC % (auto) 0.0 (0.0-0.2) /100WBC D-Dimer High Sensitivty NG/ML Sodium 137 (135-145) mmol/L Potassium 4.0 (3.3-5.1) mmol/L Chloride 106 (96-108) mmol/L Carbon Dioxide 23 (22-29) mmol/L Anion Gap 12 (12-20) BUN 16 D (9-16) mg/dL Creatinine 1.06 (0.5-1.4) mg/dL Estim Creat Clear Calc 97.8 Estimated GFR 58 Random Glucose 125 H (60-115) mg/dL Calcium 8.7 D (8.4-10.2) mg/dL Total Bilirubin 0.2 (0.0-1.0) mg/dL Direct Bilirubin < 0.2 (0.0-0.5) mg/dL AST 14 (5-31) U/L ALT 23 (0-31) U/L Alkaline Phosphatase 125 H (39-117) U/L Troponin I High Sens < 3.5 (<3.5-17.0) ng/L Total Protein 6.8 (6.5-8.0) g/dL Albumin 4.0 (3.5-5.0) g/dL Urine Color Urine Appearance Urine pH (5.0-8.0) Ur Specific [place] (1.005-1.025) Urine Protein (NEG-TRACE) MG/DL Urine Glucose (UA) (NEG) MG/DL Urine Ketones (NEG) MG/DL Urine Blood (NEG) Urine Nitrite (NEG) Ur Leukocyte Esterase (NEG) Urine Test (NEGATIVE) COVID-19 (RONY) (Negative) COVID-19 Clin Com 11/01/21 11/01/21 11/01/21 Range/Units 03:29 03:29 03:29 WBC (4.8-10.8) X10*3/uL RBC (4.20-5.50) X10*6/uL Hgb (12.0-16.0) g/dl Hct (37.0-47.0) % MCV (80.0-98.0) fL MCH (27.0-33.0) pg MCHC (31.0-35.0) g/dl RDW (11.0-16.0) % Plt Count (160-400) X10*3/uL MPV (9.4-12.3) fL Immature Gran % (Auto) (0.0-0.4) % Neut % (Auto) (45-73) % Lymph % (Auto) (20-40) % [place] % (Auto) (2-11) % Eos % (Auto) (0-4) % Baso % (Auto) (0-2) % Lymph # (Auto) (1.2-4.9) X10*3/uL [place] # (Auto) (0.1-1.2) X10*3/uL Eos # (Auto) (0.0-0.4) X10*3/uL Baso # (Auto) (0.0-0.2) X10*3/uL Abs Immat Gran (auto) (0.00-0.03) X10*3/uL Absolute Neuts (auto) (2.0-8.3) x10*3/uL Absolute Nucleated RBC (0.0-0.012) X10*3/uL Nucleated RBC % (auto) (0.0-0.2) /100WBC D-Dimer High Sensitivty NG/ML Sodium (135-145) mmol/L Potassium (3.3-5.1) mmol/L Chloride (96-108) mmol/L Carbon Dioxide (22-29) mmol/L Anion Gap (12-20) BUN (9-16) mg/dL Creatinine (0.5-1.4) mg/dL Estim Creat Clear Calc Estimated GFR Random Glucose (60-115) mg/dL Calcium (8.4-10.2) mg/dL Total Bilirubin (0.0-1.0) mg/dL Direct Bilirubin (0.0-0.5) mg/dL AST (5-31) U/L ALT (0-31) U/L Alkaline Phosphatase (39-117) U/L Troponin I High Sens (<3.5-17.0) ng/L Total Protein (6.5-8.0) g/dL Albumin (3.5-5.0) g/dL Urine Color DK YELLOW Urine Appearance HAZY Urine pH 6.5 (5.0-8.0) Ur Specific [place] 1.020 (1.005-1.025) Urine Protein TRACE (NEG-TRACE) MG/DL Urine Glucose (UA) NEG (NEG) MG/DL Urine Ketones 5 (NEG) MG/DL Urine Blood NEG (NEG) Urine Nitrite NEG (NEG) Ur Leukocyte Esterase NEG (NEG) Urine Test NEGATIVE (NEGATIVE) COVID-19 (RONY) Negative (Negative) COVID-19 Clin Com See Note 11/01/21 Range/Units 03:59 WBC (4.8-10.8) X10*3/uL RBC (4.20-5.50) X10*6/uL Hgb (12.0-16.0) g/dl Hct (37.0-47.0) % MCV (80.0-98.0) fL MCH (27.0-33.0) pg MCHC (31.0-35.0) g/dl RDW (11.0-16.0) % Plt Count (160-400) X10*3/uL MPV (9.4-12.3) fL Immature Gran % (Auto) (0.0-0.4) % Neut % (Auto) (45-73) % Lymph % (Auto) (20-40) % [place] % (Auto) (2-11) % Eos % (Auto) (0-4) % Baso % (Auto) (0-2) % Lymph # (Auto) (1.2-4.9) X10*3/uL [place] # (Auto) (0.1-1.2) X10*3/uL Eos # (Auto) (0.0-0.4) X10*3/uL Baso # (Auto) (0.0-0.2) X10*3/uL Abs Immat Gran (auto) (0.00-0.03) X10*3/uL Absolute Neuts (auto) (2.0-8.3) x10*3/uL Absolute Nucleated RBC (0.0-0.012) X10*3/uL Nucleated RBC % (auto) (0.0-0.2) /100WBC D-Dimer High Sensitivty < 150 NG/ML Sodium (135-145) mmol/L Potassium (3.3-5.1) mmol/L Chloride (96-108) mmol/L Carbon Dioxide (22-29) mmol/L Anion Gap (12-20) BUN (9-16) mg/dL Creatinine (0.5-1.4) mg/dL Estim Creat Clear Calc Estimated GFR Random Glucose (60-115) mg/dL Calcium (8.4-10.2) mg/dL Total Bilirubin (0.0-1.0) mg/dL Direct Bilirubin (0.0-0.5) mg/dL AST (5-31) U/L ALT (0-31) U/L Alkaline Phosphatase (39-117) U/L Troponin I High Sens (<3.5-17.0) ng/L Total Protein (6.5-8.0) g/dL Albumin (3.5-5.0) g/dL Urine Color Urine Appearance Urine pH (5.0-8.0) Ur Specific [place] (1.005-1.025) Urine Protein (NEG-TRACE) MG/DL Urine Glucose (UA) (NEG) MG/DL Urine Ketones (NEG) MG/DL Urine Blood (NEG) Urine Nitrite (NEG) Ur Leukocyte Esterase (NEG) Urine Test (NEGATIVE) COVID-19 (RONY) (Negative) COVID-19 Clin Com ECG Data ECG #1: Attestation: I personally reviewed and interpreted this ECG as follows: Interpretation: normal sinus rhythm heart rate 98 beats per minute normal interval normal axis no acute ischemic changes impression normal EKG Discharge Plan Discharge Clinical Impression: Atypical chest pain Patient Disposition: Home, Self-Care Instructions: Chest Pain (ED) Additional Instructions: chest pain is likely not from the heart take pain medication as prescribed and follow with PCP for further evaluation Prescriptions: New ibuprofen 600 mg tablet 600 mg PO Q6H PRN (Reason: pain) Qty: 20 0RF No Action tiotropium bromide [Spiriva Respimat] 2.5 mcg/actuation mist 2 puff PO DAILY Qty: 12 6RF montelukast 10 mg tablet 10 mg PO DAILY 90 Days Qty: 90 3RF nabumetone 750 mg tablet 750 mg PO BID PRN (Reason: pain) 90 Days Qty: 180 1RF omeprazole 20 mg capsule,delayed release(DR/EC) 20 mg PO DAILY 90 Days Qty: 90 1RF sertraline 50 mg tablet 50 mg PO DAILY 90 Days Qty: 90 1RF buspirone 30 mg tablet 30 mg PO BID 90 Days Qty: 180 1RF trazodone 100 mg tablet 200 mg PO BEDTIME 90 Days Qty: 180 0RF ziprasidone HCl 80 mg capsule 80 mg PO BID 90 Days Qty: 180 0RF Rx Instructions: give with food (meal/snack) albuterol sulfate [ProAir HFA] 90 mcg/actuation HFA aerosol inhaler 2 puff inhalation Q6H PRN (Reason: shortness of breath or wheezing) 30 Days Qty: 6.7 2RF Incruse Ellipta 62.5 mcg/actuation blister with device 1 inh inhalation BEDTIME 30 Days Qty: 30 6RF atorvastatin 10 mg tablet 10 mg PO BEDTIME 90 Days Qty: 90 1RF cetirizine [All Day Allergy (cetirizine)] 10 mg tablet 10 mg PO DAILY PRN (Reason: allergy symptoms) 90 Days Qty: 90 3RF naproxen [Naprosyn] 500 mg tablet 500 mg PO BID Qty: 20 0RF meclizine 25 mg tablet 25 mg PO DAILY PRN (Reason: for motion sickness) Qty: 90 2RF fluticasone propionate [Flonase Allergy Relief] 50 mcg/actuation spray,suspension 1 spray intranasal DAILY 30 Days Qty: 16 3RF Rx Instructions: administer into each nostril topiramate 50 mg tablet 50 mg PO BEDTIME Qty: 30 6RF albuterol sulfate 2.5 mg /3 mL (0.083 %) solution for nebulization 2.5 mg inhalation Q6H PRN (Reason: bronchospasm) 30 Days Qty: 360 0RF cyclobenzaprine 10 mg tablet 10 mg PO TID PRN (Reason: muscle spasm) 30 Days Qty: 90 3RF acetaminophen 650 mg tablet extended release 650 mg PO Q8H PRN (Reason: pain) 30 Days Qty: 90 3RF fluticasone propion-salmeterol 232-14 mcg/actuation aerosol powdr breath activated 1 inh PO BID Qty: 1 3RF albuterol sulfate [Ventolin HFA] 90 mcg/actuation HFA aerosol inhaler 2 puff PO Q4H PRN (Reason: shortness of breath or wheezing) Qty: 18 0RF loperamide [Imodium A-D] 2 mg tablet 2 mg PO Q4H PRN (Reason: loose stool) Qty: 10 0RF Rx Instructions: administer after each loose stool until symptoms controlled; do not exceed 8 mg per 24 hrs ondansetron HCl [Zofran] 4 mg tablet 4 mg PO Q6H PRN (Reason: nausea and vomiting) Qty: 10 0RF amoxicillin 875 mg tablet 875 mg PO BID Qty: 14 0RF Interventions: ED Discharge Assessment Last Done: 11/01/21 05:01 Discharge Date/Time: 11/01/21 05:06
[2021-11-01 03:44] LABS: Basophils Absolute Auto 0.1 X10*3/uL (0.0-0.2); Basophils Percent Auto 0.5 % (0-2); Eosinophils Absolute Auto 0.2 X10*3/uL (0.0-0.4); Eosinophils Percent Auto 2.6 % (0-4); Hematocrit 36.4 % (37.0-47.0); Hemoglobin 11.7 g/dl (12.0-16.0); Imm Gran Abs Auto 0.19 X10*3/uL (0.00-0.03); Imm Gran Pct Auto 2.1 % (0.0-0.4); Lymphocytes Absolute Auto 2.4 X10*3/uL (1.2-4.9); Lymphocytes Percent Auto 26.5 % (20-40); MANUAL DIFF FLAG NO; Mean Corpuscular HGB Conc 32.1 g/dl (31.0-35.0); Mean Corpuscular Hemoglobin 28.6 pg (27.0-33.0); Mean Platelet Volume 9.1 fL (9.4-12.3); Monocytes Absolute Auto 0.4 X10*3/uL (0.1-1.2); Monocytes Percent Auto 4.2 % (2-11); Neutrophils Absolute Auto 5.9 x10*3/uL (2.0-8.3); Neutrophils Percent Auto 64.1 % (45-73); Platelet Count 337 X10*3/uL (160-400); Red Blood Count 4.09 X10*6/uL (4.20-5.50); Red Cell Distribution Width 12.5 % (11.0-16.0); White Blood Count 9.2 X10*3/uL (4.8-10.8)
[2021-11-01 03:45] LABS: Appearance Urine HAZY; Color Urine DK YELLOW; Glucose Urine UA NEG (NEG); Leukocyte Esterase Urine NEG (NEG); Nitrite Urine NEG (NEG); PH 6.5 (5.0-8.0); Urine Blood NEG (NEG); Urine Ketones 5 MG/DL (NEG); Urine Protein TRACE MG/DL (NEG-TRACE)
[2021-11-01 03:46] LABS: UPreg QC Valid YES; Urine Pregnancy NEGATIVE (NEGATIVE)
[2021-11-01 03:57] LABS: COVID-19 Test Negative (Negative); IDNOW Serial# 16C4AD1C
[2021-11-01 04:00] LABS: Alanine Aminotransferase 23 U/L (0-31); Alkaline Phosphatase 125 U/L (39-117); Anion Gap 12 (12-20); Aspartate Amino Transferase 14 U/L (5-31); Bilirubin Direct < 0.2 mg/dL (0.0-0.5); Bilirubin Total 0.2 mg/dL (0.0-1.0); Blood Urea Nitrogen 16 mg/dL (9-16); Calcium 8.7 mg/dL (8.4-10.2); Carbon Dioxide 23 mmol/L (22-29); Chloride 106 mmol/L (96-108); Creatinine Clr Calc Pharmacy 97.8; Estimated Glomerular Filt Rate 58; Glucose Random 125 mg/dL (60-115); Sodium 137 mmol/L (135-145); Total Protein 6.8 g/dL (6.5-8.0)
[2021-11-01 04:03] LABS: Troponin-I High Sensitivity < 3.5 ng/L (<3.5-17.0)
[2021-11-01 04:15] LABS: D Dimer High Sensitivity < 150 NG/ML
[2021-11-01] MEDS: Ketorolac Tromethamine 30 MG/ML VIAL IVPUSH (04:58)
== END 2021-11-01 05:06 | disposition home or self-care (01) ==
PROVIDERS: Emergency Provider Internal Medicine; PCP Internal Medicine
DX: R07.89 Other chest pain (principal); Z20.822 Contact with and (suspected) exposure to COVID-19; F17.200 Nicotine dependence, unspecified, uncomplicated
CPT/HCPCS: 36415; 71045; 80053; 81003; 81025; 82248; 84484; 85025; 85379; 87635; 93005; 96374; 99283; 99284; J1885

== ENCOUNTER 2022-05-20 07:23 | Emergency (ER) | payer OTHER, SELFPAY ==
[2022-05-20 07:39] VITALS: BP 183/114; PULSE 96; RESP 18; TEMP 37.2; O2SAT 96; BMI 54.8
[2022-05-20 07:42] VITALS: BP 136/90; PULSE 102; O2SAT 96
[2022-05-20 08:59] LABS: Alanine Aminotransferase 26 U/L (0-31); Albumin Level 4.1 g/dL (3.5-5.0); Alkaline Phosphatase 126 U/L (39-117); Anion Gap 14 (12-20); Aspartate Amino Transferase 25 U/L (5-31); Bilirubin Total 0.3 mg/dL (0.0-1.0); Blood Urea Nitrogen 13 mg/dL (9-16); Calcium 9.2 mg/dL (8.4-10.2); Carbon Dioxide 23 mmol/L (22-29); Chloride 106 mmol/L (96-108); Creatinine Clr Calc Pharmacy 116.9; Estimated Glomerular Filt Rate > 60; Glucose Random 102 mg/dL (60-115); HCG Quantitative < 2 mIU/mL; Potassium 4.8 mmol/L (3.3-5.1); Sodium 138 mmol/L (135-145); Total Protein 7.5 g/dL (6.5-8.0)
--- NOTE | 2022-05-20 09:19 | ED.GENADULT ---
HPI - General Adult General Chief complaint: Back Pain/Injury Stated complaint: BACK PAINX'S 1 MONTH,DIARRHEA PER EMS Time Seen by Provider: 05/20/22 09:17 Source: patient and EMS Mode of arrival: EMS Limitations: no limitations History of Present Illness HPI narrative: Patient is a 36 year old assigned female at with a history of asthma presenting to the emergency department today with right flank pain. Patient states that over the last month she has had worsening right flank pain and diarrhea. Patient states she believes she has an infection of some sort. Patient denies any dizziness, lightheadedness, abdominal pain, nausea, vomiting, fever, chills, blurry vision, double vision, loss of vision, chest pain, difficulty breathing, shortness of breath, night sweats, pain with urination, increased urinary frequency, increased urinary urgency, blood in her urine or stool, syncope or a near syncopal episode, recent trauma or falls, bowel incontinence, bladder incontinence, bowel retention, bladder retention, or any other complaints at this time. Onset (ago): month(s) (1) Location: back Radiation: non-radiation Severity: mild Severity scale (1-10): 2 Quality: dull Pain Consistency: constant Relieving factors: none Exacerbating factors: none Associated symptoms: denies other symptoms Treatments prior to arrival: none Related Data Previous Rx's Medication Instructions Recorded tiotropium bromide 2.5 2 puff PO DAILY #12 grams 07/23/20 mcg/actuation mist for inhalation (Spiriva Respimat) loperamide 2 mg tablet (Imodium 2 mg PO Q4H PRN loose stool #10 10/08/20 A-D) tabs ondansetron HCl 4 mg tablet 4 mg PO Q6H PRN nausea and 10/08/20 (Zofran) vomiting #10 tabs amoxicillin 875 mg tablet 875 mg PO BID #14 tabs 03/19/21 buspirone 30 mg tablet 30 mg PO BID 90 days #180 tabs 04/09/21 sertraline 50 mg tablet 50 mg PO DAILY 90 days #90 tabs 04/09/21 trazodone 100 mg tablet 200 mg PO BEDTIME 90 days #180 tabs 04/09/21 ziprasidone HCl 80 mg capsule 80 mg PO BID 90 days #180 caps 04/09/21 albuterol sulfate 90 mcg/actuation 2 puff inhalation Q6H PRN 04/10/21 aerosol inhaler (ProAir HFA) shortness of breath or wheezing 30 days #6.7 grams cetirizine 10 mg tablet (All Day 10 mg PO DAILY PRN allergy 06/26/21 Allergy (cetirizine)) symptoms 90 days #90 tabs fluticasone propionate 50 1 spray intranasal DAILY 30 days 10/06/21 mcg/actuation nasal #16 grams spray,suspension (Flonase Allergy Relief) ibuprofen 600 mg tablet 600 mg PO Q6H PRN pain #20 tabs 11/01/21 atorvastatin 10 mg tablet 10 mg PO BEDTIME 90 days #90 tabs 12/06/21 omeprazole 20 mg capsule,delayed 20 mg PO DAILY 90 days #90 caps 12/06/21 release umeclidinium 62.5 mcg/actuation 1 inh inhalation BEDTIME 30 days 12/09/21 blister powder for inhalation #30 ea (Incruse Ellipta) naproxen 500 mg tablet (Naprosyn) 500 mg PO BID #20 tabs 12/10/21 montelukast 10 mg tablet 10 mg PO DAILY 90 days #90 tabs 12/24/21 nabumetone 750 mg tablet 750 mg PO BID PRN pain 90 days 12/24/21 #180 tabs hydroxyzine HCl 25 mg tablet 25 mg PO BID PRN anxiety 90 days 01/23/22 #180 tabs acetaminophen 650 mg 650 mg PO Q8H PRN pain 30 days #90 01/30/22 tablet,extended release tabs tiotropium bromide 18 mcg capsule 1 cap inhalation DAILY 30 days #30 02/04/22 with inhalation device (Spiriva inhalations with HandiHaler) fluticasone 232 mcg-salmeterol 14 1 inh PO BID #1 ea 02/19/22 mcg/actuation breath activated powdr cyclobenzaprine 10 mg tablet 10 mg PO TID PRN muscle spasm 30 02/22/22 days #90 tabs meclizine 25 mg tablet 25 mg PO DAILY PRN for motion 03/21/22 sickness #90 tabs albuterol sulfate 2.5 mg/3 mL 2.5 mg (3 mL) inhalation Q6H PRN 04/03/22 (0.083 %) solution for nebulization bronchospasm 30 days #360 mL albuterol sulfate 90 mcg/actuation 2 puff PO Q4H PRN shortness of 04/03/22 aerosol inhaler (Ventolin HFA) breath or wheezing #18 grams topiramate 50 mg tablet 50 mg PO BEDTIME #30 tabs 04/23/22 cephalexin 500 mg capsule 500 mg PO Q6H 7 days #28 caps 05/20/22 Allergies Allergy/AdvReac Type Severity Reaction Status Date / Time animal dander [PET DANDER] Allergy Unknown ITCHING Verified 10/08/20 13:49 bee pollen [BEE STINGS] Allergy Unknown SWELLING Verified 10/08/20 13:49 house dust Allergy Unknown Unknown Verified 10/08/20 13:49 shellfish derived Allergy Unknown SWELLING Verified 10/08/20 13:49 [SHELLFISH DERIVED] SEASONAL ALLERGIES Allergy Unknown ITCHING Uncoded 10/08/20 13:49 Review of Systems Constitutional: Constitutional: Reports no additional constitutional complaints, Denies chills, Denies fever(s) and Denies night sweats Eyes: Eyes: Reports no additional eye complaints, Denies blurry vision, Denies change in vision, Denies diplopia, Denies eye discharge, Denies loss of vision and Denies eye pain ENT: Denies dizziness Cardiovascular: Cardiovascular: Reports no additional cardiovascular complaints, Denies chest pain, Denies lightheadedness, Denies Loss of Consciousness and Denies dyspnea Respiratory: Respiratory: Reports no additional respiratory complaints and Denies dyspnea Gastrointestinal: Gastrointestinal: Reports no additional gastrointestinal complaints, Denies abdominal pain, Denies melena, Denies hematochezia, Denies change in bowel habits and Denies change in stool character Genitourinary: Genitourinary: Denies hematuria, Denies urinary frequency, Denies dysuria, Denies urinary incontinence, Denies urinary hesitancy and Denies urinary urgency Musculoskeletal: Musculoskeletal: Reports no additional musculoskeletal complaints, Denies numbness and Denies tingling Comments: right flank pain Neurologic: Denies dizziness, Denies loss of vision, Denies numbness and Denies tingling Psychiatric: Psychiatric: Reports no additional psychiatric complaints Endocrine: Endocrine: Reports no additional endocrine complaints Hematologic/Lymphatic: Hematologic/Lymphatic: Reports no additional hematologic/lymphatic complaints Allergic/Immunologic: Allergic/Immunologic: Reports no additional allergic/immunologic complaints PMFSH Past Medical History Attestation statement: The following information was validated with the patient. Source: old records reviewed and nursing notes reviewed Medical History Allergic rhinitis Severe asthma with allergic rhinitis Vertigo Surgical History No pertinent past surgical history Family History Family History Father Lung cancer CVD (cardiovascular disease) Mother Past heart attack Diabetes Emphysema lung CVD (cardiovascular disease) Family/Other FH: mental illness Maternal Grandmother No problems noted. Paternal Grandmother No problems noted. Social History Social History Alcohol intake: never Patient Tobacco Use Status: Current everyday Tobacco user Advance Directives: No Advance Directives Information Provided: No Physical Exam ED Vital Signs: Vital Signs - 24 hr 05/20/22 07:39 05/20/22 10:06 Temperature 98.9 F 97.9 F Pulse Rate 96 93 Respiratory Rate 18 Blood Pressure 183/114 H 198/101 H Pulse Oximetry 96 94 Oxygen Delivery Method Room Air Room Air BMI result Body Mass Index 54.8 Const General: cooperative, no acute distress, alert and awake Nutritional Appearance: well nourished Orientation/consciousness: patient oriented x3 Limitations: no limitations HENMT Head: Yes normal to inspection and Yes atraumatic Ears: hearing grossly normal bilaterally and external ears normal General nose exam: Normal external nose present, no nasal discharge noted and no epistaxis Face and sinus: Yes normal facial exam, No abrasion and No laceration Mouth: Normal oral and palatal mucosa present, no drooling and no muffled voice Eyes General: appearance normal, both eyes and all related structures Periorbital: periorbital findings normal Eyelids: Yes eyelids normal Conjunctivae: conjunctivae normal Pupils: Equal, round and reactive pupils present EOM: EOMs intact bilaterally Neck Neck: Yes normal visual inspection, Yes full ROM and Yes no lymphadenopathy Chest Chest palpation & inspection: normal inspection of the chest Resp Effort & Inspection: normal respiratory effort and able to speak in complete sentences Auscultation: clear to auscultation bilaterally Cardio Rate: regular rate Rhythm: regular rhythm GI Inspection: Yes normal to inspection Palpation (GI): Soft to palpation, not firm, nontender and no guarding General: Yes no CVA tenderness Back/Spine/Pelvis Back: no CVA tenderness Neuro General: patient oriented x3 and moves all extremities Cranial nerves: Yes Equal, round and reactive pupils present Cognition (Neuro): normal cognition Motor exam (neuro): 5/5 motor strength present throughout Sensory Exam: Normal double simultaneous stimulation for sensation Coordination: [id number] test normal Extrem General: Yes normal to inspection, Yes full ROM and Yes capillary refill normal Psych Appearance: grossly normal Mental Status: mental status grossly normal Affect: normal affect Attitude: cooperative Thought process: Normal thought process present Thought content: Normal thought content present Insight: Good insight present (Psych) Medications Administered Discontinued Medications Generic Name Dose Route Start Last Admin Trade Name Frelexy PRN Reason Stop Dose Admin Ketorolac Tromethamine 15 mg 05/20/22 09:33 05/20/22 10:08 Ketorolac Tromethamine 15 Mg/Ml Vial IM 05/20/22 09:34 15 mg ONCE ONE Administration Medical Decision Making Medical Decision Making [facility] Narrative: Patient is a 36 year old assigned female at with a history of asthma presenting to the emergency department today with right flank pain. Patient's physical exam was unremarkable. Patient's blood work was unremarkable. Patient's urine showed a possible UTI, given the patients symptoms, will treat accordingly. I explained my physical exam findings as well as all test results to the patient. I answered all questions asked by the patient. Patient received IM Toradol which she stated helped her symptoms significantly. I stressed the importance of the patient taking her medication as prescribed. I stressed the importance of the patient following up with her primary care provider. I stressed the importance of the patient returning to the emergency department immediately if her symptoms were to worsen or if she were to develop any dizziness, shortness of breath, difficulty breathing, chest pain, blurry vision, loss of vision, nausea, vomiting, abdominal pain, fever, chills, back pain, or any other complaints. Patient verbalized agreement and understanding with this treatment plan and discharge. Differential Diagnosis Differential Diagnoses: The differential diagnosis associated with the presentation includes UTI, flank pain Lab Data [facility] Lab Attestation statement: I reviewed the patient's lab results. 05/20/22 08:15 05/20/22 08:07 Labs: Lab Results 05/20/22 05/20/22 05/20/22 Range/Units 08:07 09:37 09:47 WBC 9.2 (4.8-10.8) X10*3/uL RBC 4.47 (4.20-5.50) X10*6/uL Hgb 13.1 (12.0-16.0) g/dl Hct 39.6 (37.0-47.0) % MCV 88.6 (80.0-98.0) fL MCH 29.3 (27.0-33.0) pg MCHC 33.1 (31.0-35.0) g/dl RDW 12.1 (11.0-16.0) % Plt Count 371 (160-400) X10*3/uL MPV 8.8 L (9.4-12.3) fL Immature Gran % (Auto) 1.4 H (0.0-0.4) % Neut % (Auto) 66.6 (45-73) % Lymph % (Auto) 24.2 (20-40) % [place] % (Auto) 4.5 (2-11) % Eos % (Auto) 2.6 (0-4) % Baso % (Auto) 0.7 (0-2) % Lymph # (Auto) 2.2 (1.2-4.9) X10*3/uL [place] # (Auto) 0.4 (0.1-1.2) X10*3/uL Eos # (Auto) 0.2 (0.0-0.4) X10*3/uL Baso # (Auto) 0.1 (0.0-0.2) X10*3/uL Abs Immat Gran (auto) 0.13 H (0.00-0.03) X10*3/uL Absolute Neuts (auto) 6.1 (2.0-8.3) x10*3/uL Absolute Nucleated RBC 0.000 (0.0-0.012) X10*3/uL Nucleated RBC % (auto) 0.0 (0.0-0.2) /100WBC Sodium 138 (135-145) mmol/L Potassium 4.8 (3.3-5.1) mmol/L Chloride 106 (96-108) mmol/L Carbon Dioxide 23 (22-29) mmol/L Anion Gap 14 (12-20) BUN 13 (9-16) mg/dL Creatinine 0.87 (0.5-1.4) mg/dL Estim Creat Clear Calc 116.9 Estimated GFR > 60 Random Glucose 102 (60-115) mg/dL Calcium 9.2 (8.4-10.2) mg/dL Total Bilirubin 0.3 (0.0-1.0) mg/dL AST 25 (5-31) U/L ALT 26 (0-31) U/L Alkaline Phosphatase 126 H (39-117) U/L Total Protein 7.5 (6.5-8.0) g/dL Albumin 4.1 (3.5-5.0) g/dL Beta HCG, Quant < 2 mIU/mL Urine Color Yellow Urine Appearance Clear Urine pH 7.5 (5.0-9.0) Ur Specific [place] 1.020 (1.005-1.025) Urine Protein Negative (Neg-Trace) mg/dL Urine Glucose (UA) Negative (Negative) mg/dL Urine Ketones Negative (Negative) mg/dL Urine Blood Negative (Negative) Urine Nitrite Negative (Negative) Ur Leukocyte Esterase Small (1+) H (Negative) Urine RBC 0-2 (0-2) /HPF Urine WBC 0-5 (0-5) /HPF Ur Squamous Epith Cells 6-10 (0-2) /HPF Urine Bacteria 1+ (None Seen) Hyaline Casts 0-2 (0-2) /LPF Discharge Plan Discharge Clinical Impression: Urinary tract infection Patient Disposition: Home, Self-Care Instructions: Urinary Tract Infection in Women (ED) Additional Instructions: Follow up with your primary care provider. Return to the emergency department immediately if your symptoms worsen or if you develop any dizziness, shortness of breath, difficulty breathing, chest pain, blurry vision, loss of vision, nausea, vomiting, abdominal pain, fever, chills, back pain, or any other complaints. Prescriptions: New cephalexin 500 mg capsule 500 mg PO Q6H 7 Days Qty: 28 0RF No Action tiotropium bromide [Spiriva Respimat] 2.5 mcg/actuation mist 2 puff PO DAILY Qty: 12 6RF sertraline 50 mg tablet 50 mg PO DAILY 90 Days Qty: 90 1RF buspirone 30 mg tablet 30 mg PO BID 90 Days Qty: 180 1RF trazodone 100 mg tablet 200 mg PO BEDTIME 90 Days Qty: 180 0RF ziprasidone HCl 80 mg capsule 80 mg PO BID 90 Days Qty: 180 0RF Rx Instructions: give with food (meal/snack) albuterol sulfate [ProAir HFA] 90 mcg/actuation HFA aerosol inhaler 2 puff inhalation Q6H PRN (Reason: shortness of breath or wheezing) 30 Days Qty: 6.7 2RF cetirizine [All Day Allergy (cetirizine)] 10 mg tablet 10 mg PO DAILY PRN (Reason: allergy symptoms) 90 Days Qty: 90 3RF fluticasone propionate [Flonase Allergy Relief] 50 mcg/actuation spray,suspension 1 spray intranasal DAILY 30 Days Qty: 16 3RF Rx Instructions: administer into each nostril omeprazole 20 mg capsule,delayed release(DR/EC) 20 mg PO DAILY 90 Days Qty: 90 1RF atorvastatin 10 mg tablet 10 mg PO BEDTIME 90 Days Qty: 90 1RF Incruse Ellipta 62.5 mcg/actuation blister with device 1 inh inhalation BEDTIME 30 Days Qty: 30 6RF naproxen [Naprosyn] 500 mg tablet 500 mg PO BID Qty: 20 0RF montelukast 10 mg tablet 10 mg PO DAILY 90 Days Qty: 90 3RF nabumetone 750 mg tablet 750 mg PO BID PRN (Reason: pain) 90 Days Qty: 180 1RF hydroxyzine HCl 25 mg tablet 25 mg PO BID PRN (Reason: anxiety) 90 Days Qty: 180 0RF acetaminophen 650 mg tablet extended release 650 mg PO Q8H PRN (Reason: pain) 30 Days Qty: 90 3RF Spiriva with HandiHaler 18 mcg capsule, w/inhalation device 1 cap inhalation DAILY 30 Days Qty: 30 1RF Rx Instructions: puncture 1 cap using device; one dose = 2 inhalations fluticasone propion-salmeterol 232-14 mcg/actuation aerosol powdr breath activated 1 inh PO BID Qty: 1 3RF cyclobenzaprine 10 mg tablet 10 mg PO TID PRN (Reason: muscle spasm) 30 Days Qty: 90 3RF meclizine 25 mg tablet 25 mg PO DAILY PRN (Reason: for motion sickness) Qty: 90 2RF albuterol sulfate [Ventolin HFA] 90 mcg/actuation HFA aerosol inhaler 2 puff PO Q4H PRN (Reason: shortness of breath or wheezing) Qty: 18 0RF albuterol sulfate 2.5 mg /3 mL (0.083 %) solution for nebulization 2.5 mg inhalation Q6H PRN (Reason: bronchospasm) 30 Days Qty: 360 0RF topiramate 50 mg tablet 50 mg PO BEDTIME Qty: 30 6RF loperamide [Imodium A-D] 2 mg tablet 2 mg PO Q4H PRN (Reason: loose stool) Qty: 10 0RF Rx Instructions: administer after each loose stool until symptoms controlled; do not exceed 8 mg per 24 hrs ondansetron HCl [Zofran] 4 mg tablet 4 mg PO Q6H PRN (Reason: nausea and vomiting) Qty: 10 0RF ibuprofen 600 mg tablet 600 mg PO Q6H PRN (Reason: pain) Qty: 20 0RF amoxicillin 875 mg tablet 875 mg PO BID Qty: 14 0RF Referrals: Roxie Guevara MD [Primary Care Provider] - Interventions: ED Discharge Assessment Last Done: 05/20/22 10:12 Discharge Date/Time: 05/20/22 10:13 Print Language: [place]
[2022-05-20 09:47] LABS: Appearance Urine Clear; Color Urine Yellow; Glucose Urine UA Negative (Negative); Leukocyte Esterase Urine Small (1+) (Negative); Nitrite Urine Negative (Negative); PH 7.5 (5.0-9.0); UMIC TRIGGER UACC YES; Urine Blood Negative (Negative); Urine Ketones Negative (Negative); Urine Protein Negative (Neg-Trace)
[2022-05-20 09:53] LABS: Basophils Absolute Auto 0.1 X10*3/uL (0.0-0.2); Basophils Percent Auto 0.7 % (0-2); Eosinophils Absolute Auto 0.2 X10*3/uL (0.0-0.4); Eosinophils Percent Auto 2.6 % (0-4); Hematocrit 39.6 % (37.0-47.0); Hemoglobin 13.1 g/dl (12.0-16.0); Imm Gran Abs Auto 0.13 X10*3/uL (0.00-0.03); Imm Gran Pct Auto 1.4 % (0.0-0.4); Lymphocytes Absolute Auto 2.2 X10*3/uL (1.2-4.9); Lymphocytes Percent Auto 24.2 % (20-40); Mean Corpuscular HGB Conc 33.1 g/dl (31.0-35.0); Mean Corpuscular Hemoglobin 29.3 pg (27.0-33.0); Mean Corpuscular Volume 88.6 fL (80.0-98.0); Mean Platelet Volume 8.8 fL (9.4-12.3); Monocytes Absolute Auto 0.4 X10*3/uL (0.1-1.2); Monocytes Percent Auto 4.5 % (2-11); Neutrophils Absolute Auto 6.1 x10*3/uL (2.0-8.3); Neutrophils Percent Auto 66.6 % (45-73); Platelet Count 371 X10*3/uL (160-400); Red Blood Count 4.47 X10*6/uL (4.20-5.50); Red Cell Distribution Width 12.1 % (11.0-16.0); White Blood Count 9.2 X10*3/uL (4.8-10.8)
[2022-05-20 09:56] LABS: Bacteria Urine 1+ (None Seen); Hyaline Casts Urine 0-2 /LPF (0-2); RBC Urine 0-2 /HPF (0-2); UACC Culture Trigger YES; WBC Urine 0-5 /HPF (0-5)
[2022-05-20 10:06] VITALS: BP 198/101; PULSE 93; TEMP 36.6; O2SAT 94
[2022-05-20] MEDS: Ketorolac Tromethamine 15 MG/ML VIAL IM (10:08)
[2022-05-20 10:16] LABS: MANUAL DIFF FLAG NO
== END 2022-05-20 10:13 | disposition home or self-care (01) ==
PROVIDERS: Physician Assistant Medical; Emergency Provider Emergency Medicine; PCP Internal Medicine
DX: N39.0 Urinary tract infection, site not specified (principal); J45.909 Unspecified asthma, uncomplicated; F17.200 Nicotine dependence, unspecified, uncomplicated; Z79.02 Long term (current) use of antithrombotics/antiplatelets; Z79.899 Other long term (current) drug therapy
CPT/HCPCS: 36415; 80053; 81001; 84702; 85025; 87086; 96372; 99284; J1885

== ENCOUNTER 2022-08-30 14:19 | Outpatient (REF) | payer OTHER, SELFPAY | END 2022-08-30 14:20 | disposition home or self-care (01) | LOC: HO.LAB 14:19 | PROVIDERS: Visit Provider Nurse Practitioner Family | DX: R30.0 Dysuria (principal) | CPT/HCPCS: 87086 ==

== ENCOUNTER 2022-10-29 09:43 | Outpatient (REF) | payer OTHER, SELFPAY ==
[2022-10-29 09:57] LABS: MANUAL DIFF FLAG NO
[2022-10-29 10:50] LABS: Basophils Absolute Auto 0.1 X10*3/uL (0.0-0.2); Basophils Percent Auto 0.7 % (0-2); Eosinophils Absolute Auto 0.2 X10*3/uL (0.0-0.4); Eosinophils Percent Auto 1.6 % (0-4); Hematocrit 40.2 % (37.0-47.0); Imm Gran Abs Auto 0.12 X10*3/uL (0.00-0.03); Lymphocytes Absolute Auto 3.3 X10*3/uL (1.2-4.9); Lymphocytes Percent Auto 26.9 % (20-40); Mean Corpuscular HGB Conc 32.3 g/dl (31.0-35.0); Mean Corpuscular Volume 89.5 fL (80.0-98.0); Mean Platelet Volume 9.5 fL (9.4-12.3); Monocytes Absolute Auto 0.4 X10*3/uL (0.1-1.2); Monocytes Percent Auto 3.5 % (2-11); Neutrophils Absolute Auto 8.1 x10*3/uL (2.0-8.3); Neutrophils Percent Auto 66.3 % (45-73); Platelet Count 379 X10*3/uL (160-400); Red Blood Count 4.49 X10*6/uL (4.20-5.50); White Blood Count 12.1 X10*3/uL (4.8-10.8)
[2022-10-29 10:54] LABS: Appearance Urine Cloudy; Color Urine Yellow; Glucose Urine UA Negative (Negative); Leukocyte Esterase Urine Moderate (2+) (Negative); Nitrite Urine Negative (Negative); UMIC TRIGGER UACC YES; Urine Blood Negative (Negative); Urine Ketones Trace mg/dL (Negative); Urine Protein Negative (Neg-Trace)
[2022-10-29 11:00] LABS: Bacteria Urine 3+ (None Seen); Hyaline Casts Urine 0-2 /LPF (0-2); Squamous Epithelial Cell Urine >20 /HPF (0-2); UACC Culture Trigger YES
[2022-10-29 11:38] LABS: Alanine Aminotransferase 26 U/L (0-31); Albumin Level 4.1 g/dL (3.5-5.0); Alkaline Phosphatase 120 U/L (39-117); Anion Gap 14 (12-20); Aspartate Amino Transferase 15 U/L (5-31); Bilirubin Total 0.4 mg/dL (0.0-1.0); Blood Urea Nitrogen 14 mg/dL (9-16); Calcium 9.4 mg/dL (8.4-10.2); Carbon Dioxide 21 mmol/L (22-29); Chloride 108 mmol/L (96-108); Cholesterol 165 mg/dL; Estimated Glomerular Filt Rate > 60; Glucose Fasting 139 mg/dL (60-99); HDL Cholesterol 23 mg/dL; LDL Cholesterol Calculated 92 mg/dl; Potassium 3.8 mmol/L (3.3-5.1); Sodium 139 mmol/L (135-145); Total Protein 7.5 g/dL (6.5-8.0); Triglycerides 250 mg/dL
[2022-10-29 11:55] LABS: Vitamin D 25-OH Total 16.1 ng/mL (>30)
[2022-10-29 12:01] LABS: Folate 5.4 ng/mL (> or = 4.0); Vitamin B12 214 pg/mL (200-900)
== END 2022-10-29 09:44 | disposition home or self-care (01) ==
LOC: HO.LAB 09:43
PROVIDERS: Nurse Practitioner Family; PCP Internal Medicine; Visit Provider Nurse Practitioner Family
DX: Z00.00 Encounter for general adult medical examination without abnormal findings (principal); E78.5 Hyperlipidemia, unspecified; R82.90 Unspecified abnormal findings in urine; E55.9 Vitamin D deficiency, unspecified; R73.01 Impaired fasting glucose
CPT/HCPCS: 36415; 80053; 80061; 81001; 82306; 82607; 82746; 84443; 85025; 87086

== ENCOUNTER 2022-12-08 04:55 | Emergency (ER) | payer OTHER, SELFPAY ==
[2022-12-08 04:58] VITALS: BP 152/86; PULSE 101; O2SAT 98
[2022-12-08 05:36] VITALS: BP 162/94; PULSE 93; RESP 18; TEMP 36.6; O2SAT 96; BMI 37.8
== END 2022-12-08 07:41 | disposition left against medical advice (07) ==
LOC: HO.ED 07:41
PROVIDERS: Emergency Provider Emergency Medicine
DX: R21 Rash and other nonspecific skin eruption (principal); M79.10 Myalgia, unspecified site
CPT/HCPCS: 99281

== ENCOUNTER 2023-01-09 08:00 | Outpatient (REF) | payer OTHER, SELFPAY ==
[2023-01-10 02:26] LABS: CT PCR NOT DETECTED (Not Detect.); NG PCR NOT DETECTED (Not Detect.)
[2023-01-10 16:03] LABS: BV Int Neg Control Negative (Negative); BV Int Pos Control Positive (Positive)
[2023-01-14 06:54] LABS: HPV mRNA E6/E7 rflx Not Detected (Not Detected)
== END 2023-01-09 08:01 | disposition home or self-care (01) ==
LOC: HO.LNP 08:00
PROVIDERS: Visit Provider Advanced Practice Midwife
DX: Z01.419 Encounter for gynecological examination (general) (routine) without abnormal findings (principal); Z11.51 Encounter for screening for human papillomavirus (HPV); Z20.2 Contact with and (suspected) exposure to infections with a predominantly sexual mode of transmission; R03.0 Elevated blood-pressure reading, without diagnosis of hypertension; F43.10 Post-traumatic stress disorder, unspecified
CPT/HCPCS: 0353U; 87480; 87510; 87624; 87660; 88142

== ENCOUNTER 2023-01-09 08:00 | Outpatient (AMB) | payer OTHER, SELFPAY ==
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
[2023-01-09 08:57] VITALS: BP 142/80; BMI 50.6
== END 2023-01-09 10:40 | disposition home or self-care (01) ==
PROVIDERS: Visit Provider Advanced Practice Midwife
DX: Z01.419 Encounter for gynecological examination (general) (routine) without abnormal findings (principal); E66.01 Morbid (severe) obesity due to excess calories; Z68.43 Body mass index [BMI] 50.0-59.9, adult; Z12.4 Encounter for screening for malignant neoplasm of cervix; R03.0 Elevated blood-pressure reading, without diagnosis of hypertension; F17.200 Nicotine dependence, unspecified, uncomplicated; F43.10 Post-traumatic stress disorder, unspecified; Z12.39 Encounter for other screening for malignant neoplasm of breast; Z11.3 Encounter for screening for infections with a predominantly sexual mode of transmission; Z97.5 Presence of (intrauterine) contraceptive device
CPT/HCPCS: 99385; 99395

== ENCOUNTER 2023-01-09 09:51 | Outpatient (REF) | payer OTHER, SELFPAY | END 2023-01-09 09:52 | disposition home or self-care (01) | LOC: HO.LAB 09:51 | PROVIDERS: Visit Provider Advanced Practice Midwife | DX: Z13.89 Encounter for screening for other disorder (principal) ==

== ENCOUNTER → 2023-07-05 23:59 | Outpatient (BNV) | payer OTHER, SELFPAY | PROVIDERS: PCP Internal Medicine; Visit Provider Internal Medicine | DX: F25.9 Schizoaffective disorder, unspecified (principal); F43.10 Post-traumatic stress disorder, unspecified | CPT/HCPCS: G0179 ==

== ENCOUNTER 2024-01-07 07:01 | Emergency (ER) | payer OTHER, SELFPAY ==
--- NOTE | ~2024-01-07 | CT_ITS ---
EXAMINATION: CT HEAD WITHOUT CONTRAST CLINICAL INFORMATION: Altered mental status COMPARISON: CT head 06/12/2017 TECHNIQUE: Contiguous axial imaging was performed from the skull base to vertex without intravenous administration of contrast. This CT examination was performed using dose optimization techniques as appropriate, variously including the following: *Automated exposure control *Adjustment of mA and/or kV according to patient size (this includes techniques or standardized protocols for targeted exams where dose is matched to indication/reason for exam; i.e. extremities or head) *Use of iterative reconstruction technique DLP: 805 mGy-cm FINDINGS: There is no evidence of acute intracranial hemorrhage or edematous territorial infarction. The [place]-white matter differentiation appears preserved. The ventricles and cortical sulci are normal. There is no mass effect or midline shift. No extra-axial collection. No acute osseous or soft tissue abnormality. Small osteoma along the left parietal bone at the vertex. Mild mucosal thickening involving the sphenoid sinuses. Rest of the visualized paranasal sinuses are well aerated. Trace bilateral mastoid effusions. CT/CT head/brain wo IV con IMPRESSION: No acute intracranial pathology. Electronically signed by: Willian Milian MD 01/07/2024 02:47 PM EDT
[2024-01-07 07:04] VITALS: BP 160/94; PULSE 111; O2SAT 96; BMI 40.2
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
[2024-01-07 07:26] LABS: MANUAL DIFF FLAG NO
[2024-01-07 07:29] LABS: Basophils Percent Auto 0.4 % (0-2); Eosinophils Absolute Auto 0.1 X10*3/uL (0.0-0.4); Eosinophils Percent Auto 0.4 % (0-4); Hematocrit 37.6 % (37.0-47.0); Hemoglobin 12.3 g/dl (12.0-16.0); Imm Gran Abs Auto 0.08 X10*3/uL (0.00-0.03); Imm Gran Pct Auto 0.7 % (0.0-0.4); Lymphocytes Absolute Auto 1.8 X10*3/uL (1.2-4.9); Lymphocytes Percent Auto 15.9 % (20-40); Mean Corpuscular HGB Conc 32.7 g/dl (31.0-35.0); Mean Corpuscular Hemoglobin 29.9 pg (27.0-33.0); Mean Corpuscular Volume 91.3 fL (80.0-98.0); Monocytes Absolute Auto 0.5 X10*3/uL (0.1-1.2); Monocytes Percent Auto 4.7 % (2-11); Neutrophils Absolute Auto 8.7 x10*3/uL (2.0-8.3); Neutrophils Percent Auto 77.9 % (45-73); Platelet Count 357 X10*3/uL (160-400); Red Blood Count 4.12 X10*6/uL (4.20-5.50); Red Cell Distribution Width 12.6 % (11.0-16.0); White Blood Count 11.2 X10*3/uL (4.8-10.8)
--- NOTE | 2024-01-07 07:30 | PC.NURSE ---
when asking pt if she had to urinate so sample could be collected, pt noted to have auditory/visual hallucinations. pt continuously stating, it's okay auntie jayy, you can come out now. you can come out now. pt continuously having conversation with nonexistent family members/looking into the distance/waving at family members to come into the room. provider notified/aware.
[2024-01-07 07:41] VITALS: BP 168/95; PULSE 99; RESP 18; TEMP 36.7; O2SAT 99
--- NOTE | 2024-01-07 07:43 | PC.NURSE ---
urine obtained/sent to lab. 1:1 sitter remains present. plan of care ongoing.
[2024-01-07 07:52] LABS: Alanine Aminotransferase 21 U/L (0-31); Albumin Level 4.4 g/dL (3.5-5.0); Alkaline Phosphatase 100 U/L (39-117); Anion Gap 15 (12-20); Aspartate Amino Transferase 14 U/L (5-31); Bilirubin Total 0.4 mg/dL (0.0-1.0); Blood Urea Nitrogen 16 mg/dL (9-16); Calcium 9.6 mg/dL (8.4-10.2); Carbon Dioxide 21 mmol/L (22-29); Chloride 108 mmol/L (96-108); Creatinine Clr Calc Pharmacy 94.9; Estimated Glomerular Filt Rate > 60; Ethanol < 10 mg/dL; Glucose Random 131 mg/dL (60-115); Magnesium 2.2 mg/dL (1.6-2.6); Potassium 3.1 mmol/L (3.3-5.1); Sodium 141 mmol/L (135-145); Total Protein 7.7 g/dL (6.5-8.0)
[2024-01-07 07:53] LABS: Acetaminophen LAB < 3 mcg/mL (<30); Salicylate < 5.0 mg/dL (15-30)
[2024-01-07 07:59] LABS: Amphetamine Screen Urine Not Detected (Not Detect); Barbiturates, Urine Not Detected (Not Detect); Benzodiazepines Screen Urine Not Detected (Not Detect); Buprenorphine Scr Not Detected (Not Detect); Cannabinoid Screen Urine POSITIVE (Not Detect); Cocaine Screen Urine Not Detected (Not Detect); Fentanyl, urine Not Detected (Not Detect); Methadone Screen, Urine Not Detected (Not Detect); Opiate Screen Urine Not Detected (Not Detect); Oxycodone Screen Urine Not Detected (Not Detect); Phencyclidine Screen Urine Not Detected (Not Detect)
[2024-01-07 08:08] LABS: Appearance Urine Clear; Color Urine Yellow; Glucose Urine UA Negative (Negative); Leukocyte Esterase Urine Small (1+) (Negative); Nitrite Urine Negative (Negative); UMIC TRIGGER UACC YES; Urine Blood Negative (Negative); Urine Ketones Trace mg/dL (Negative); Urine Protein Trace mg/dL (Neg-Trace)
[2024-01-07 08:14] LABS: Bacteria Urine Trace (None Seen); Hyaline Casts Urine 0-2 /LPF (0-2); RBC Urine 0-2 /HPF (0-2); UACC Culture Trigger YES
[2024-01-07] MEDS: Potassium Chloride Packet 20 MEQ PACKET 40 MEQ PO (08:30)
--- NOTE | 2024-01-07 08:36 | PC.NURSE ---
medication administered per provider order.
[2024-01-07 11:43] VITALS: BP 141/79; PULSE 84; RESP 16; TEMP 36.8; O2SAT 99
[2024-01-07] MEDS: Nicotine 21 MG PATCH.TD24 TRANSDERMA (13:56)
[2024-01-07] MEDS: Omeprazole 20 MG CAPSULE.DR PO (14:31)
[2024-01-07] MEDS: busPIRone HCl 10 MG TABLET 30 MG PO ×2 (14:31→19:48)
[2024-01-07] MEDS: Sertraline HCL 50 MG TABLET PO (14:31)
[2024-01-07] MEDS: Montelukast Sodium 10 MG TABLET PO (15:27)
[2024-01-07 15:50] VITALS: RESP 16
[2024-01-07] MEDS: Fluticasone Propionate Nasal 16 GM SPRAY 1 SPRAY NOSTRIL-B (16:11)
--- NOTE | 2024-01-07 16:12 | MHC.CARE ---
Patient evaluated by the CARE Team, final disposition not reached today and she will reassessed in the morning and remains on a Section 12A ED provider, VICKIE Landrum updated with plan
--- NOTE | 2024-01-07 19:28 | PC.NURSE ---
patient appears to remain at rest at present respirations are even and unlabored patient appears in no distress.
[2024-01-07] MEDS: Topiramate 25 MG TABLET 50 MG PO (19:48)
[2024-01-07] MEDS: Ziprasidone 80 MG CAPSULE PO (19:48)
[2024-01-07] MEDS: Atorvastatin Calcium 10 MG TABLET PO (19:49)
[2024-01-07] MEDS: Fluticasone/Vilanterol 100/25 BLST.W.DEV 1 PUFF INHALE (21:20)
[2024-01-07] MEDS: Tiotropium Bromide 2.5 mcg 1 PUFF/2.5 MCG MIST.INHAL 2 PUFF INHALE (21:20)
--- NOTE | 2024-01-07 22:17 | PC.NURSE ---
late entry, patient prior to going to bed had bf/ come in and visit for 30 minutes (arrived near end of visit hours)then after visit departed, patient asked appropriate questions regarding medications, aksed for tea and permission to make phone calls, patient seemed content.
[2024-01-07 22:25] VITALS: BP 165/104; PULSE 100; RESP 18; O2SAT 94
--- NOTE | 2024-01-08 04:36 | PC.NURSE ---
client as of about an hour ago frequently coming out and asking questions or using restroom. [id number] do you have a phone directory on your computer? (minutes before this) what time do clinicians come in?
[2024-01-08] MEDS: Albuterol Sulfate 90 MCG 8 GM INHALER 2 PUFF INHALE (04:51)
--- NOTE | 2024-01-08 05:09 | PC.NURSE ---
450- patient asked for channel changed, encouraged to try and sleep. 509 patient asked to use phone, discouraged d/t the fact other people are sleeping.
--- NOTE | 2024-01-08 05:24 | PC.NURSE ---
client just came back from restroom, without asking client initiated washing her hair in sink and upon return asked for deodorant. had the client asked client would have been advised to wait until after breakfast despite the fact the pod has low census. ? olfactory delusion?
[2024-01-08] MEDS: Omeprazole 20 MG CAPSULE.DR PO (05:57)
[2024-01-08 06:01] VITALS: BP 183/112; PULSE 110; RESP 17; TEMP 36.9; O2SAT 98
--- NOTE | 2024-01-08 06:14 | PC.NURSE ---
t/w had asked client prior to going to bed in regards to medications for hypertension to which she responded yes i have that however in reviewing the medications t/w didnt see a med directly used to address this. notified provider. asked care team to review with sister and if a medication had been missed for this purpose. will advise oncoming RN also.
[2024-01-08] MEDS: amLODIPine Besylate 5 MG TABLET PO (08:07)
[2024-01-08] MEDS: Sertraline HCL 50 MG TABLET PO (08:07)
[2024-01-08] MEDS: busPIRone HCl 10 MG TABLET 30 MG PO (08:07)
[2024-01-08] MEDS: Tiotropium Bromide 2.5 mcg 1 PUFF/2.5 MCG MIST.INHAL 2 PUFF INHALE (08:15)
[2024-01-08] MEDS: Fluticasone Propionate Nasal 16 GM SPRAY 1 SPRAY NOSTRIL-B (08:15)
[2024-01-08] MEDS: Ziprasidone 80 MG CAPSULE PO (09:06)
[2024-01-08 10:46] VITALS: BP 181/117
[2024-01-08 11:05] VITALS: BP 181/117; PULSE 110; RESP 18; TEMP 36.9; O2SAT 98
--- NOTE | 2024-01-08 12:10 | MHC.CARE ---
CARE Team left a message with Ms. Tamiko Mcdonnell, [facility] [employer] ([phone]) regarding pt?s discharge and her potential need for additional support. A 3 day follow up was requested through [facility], form was submitted and activated. Pt was placed on alert with [facility].
== END 2024-01-08 11:17 | disposition home or self-care (01) ==
PROVIDERS: Physician Assistant; Emergency Provider Emergency Medicine; PCP Internal Medicine
DX: F31.9 Bipolar disorder, unspecified (principal); F41.9 Anxiety disorder, unspecified; I10 Essential (primary) hypertension; Z13.39 Encounter for screening examination for other mental health and behavioral disorders; Z79.899 Other long term (current) drug therapy
CPT/HCPCS: 36415; 70450; 80053; 80143; 80179; 80307; 81001; 83735; 85025; 87086; 99285; S9485

== ENCOUNTER 2024-01-15 10:47 | Emergency (ER) | payer OTHER, SELFPAY ==
[2024-01-15 11:07] VITALS: RESP 16; BMI 45.7
[2024-01-15] MEDS: Nicotine Polacrilex 2 MG GUM BUCCAL (11:16)
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
[2024-01-15] MEDS: hydrOXYzine HCL 50 MG TABLET PO (11:43)
[2024-01-15 12:09] VITALS: PULSE 101; RESP 16; TEMP 36.6; O2SAT 97
[2024-01-15] MEDS: LORazepam 1 MG TABLET PO (12:24)
--- NOTE | 2024-01-15 12:24 | PHA.MEDREC ---
Pharmacy Consult ? Medication Reconciliation Pharmacy has completed the medication reconciliation. Reviewed med rec done by nursing; matches claim history
[2024-01-15 12:40] LABS: Basophils Absolute Auto 0.1 X10*3/uL (0.0-0.2); Basophils Percent Auto 0.6 % (0-2); Eosinophils Absolute Auto 0.2 X10*3/uL (0.0-0.4); Eosinophils Percent Auto 1.7 % (0-4); Hematocrit 37.7 % (37.0-47.0); Hemoglobin 12.7 g/dl (12.0-16.0); Imm Gran Abs Auto 0.15 X10*3/uL (0.00-0.03); Imm Gran Pct Auto 1.5 % (0.0-0.4); Lymphocytes Absolute Auto 2.7 X10*3/uL (1.2-4.9); Lymphocytes Percent Auto 26.2 % (20-40); MANUAL DIFF FLAG NO; Mean Corpuscular HGB Conc 33.7 g/dl (31.0-35.0); Mean Corpuscular Hemoglobin 30.2 pg (27.0-33.0); Mean Corpuscular Volume 89.5 fL (80.0-98.0); Mean Platelet Volume 9.2 fL (9.4-12.3); Monocytes Absolute Auto 0.9 X10*3/uL (0.1-1.2); Monocytes Percent Auto 8.4 % (2-11); Neutrophils Absolute Auto 6.3 x10*3/uL (2.0-8.3); Neutrophils Percent Auto 61.6 % (45-73); Platelet Count 435 X10*3/uL (160-400); Red Blood Count 4.21 X10*6/uL (4.20-5.50); Red Cell Distribution Width 12.5 % (11.0-16.0); White Blood Count 10.2 X10*3/uL (4.8-10.8)
[2024-01-15] MEDS: Omeprazole 20 MG CAPSULE.DR PO (12:49)
[2024-01-15] MEDS: Cyclobenzaprine HCl 10 MG TABLET PO (12:49)
[2024-01-15] MEDS: Nicotine 21 MG PATCH.TD24 TRANSDERMA (12:49)
[2024-01-15] MEDS: amLODIPine Besylate 5 MG TABLET PO (12:49)
[2024-01-15] MEDS: Montelukast Sodium 10 MG TABLET PO (12:49)
[2024-01-15] MEDS: Sertraline HCL 50 MG TABLET PO (12:49)
[2024-01-15] MEDS: busPIRone HCl 10 MG TABLET 30 MG PO ×2 (12:50→20:43)
[2024-01-15 13:00] LABS: Alanine Aminotransferase 64 U/L (0-31); Albumin Level 4.3 g/dL (3.5-5.0); Alkaline Phosphatase 127 U/L (39-117); Anion Gap 11 (12-20); Aspartate Amino Transferase 38 U/L (5-31); Bilirubin Direct 0.1 mg/dL (0.0-0.5); Bilirubin Total 0.4 mg/dL (0.0-1.0); Blood Urea Nitrogen 12 mg/dL (9-16); Calcium 9.7 mg/dL (8.4-10.2); Carbon Dioxide 24 mmol/L (22-29); Chloride 106 mmol/L (96-108); Creatinine Clr Calc Pharmacy 118.7; Estimated Glomerular Filt Rate > 60; Ethanol < 10 mg/dL; Glucose Random 107 mg/dL (60-115); Magnesium 2.2 mg/dL (1.6-2.6); Potassium 3.4 mmol/L (3.3-5.1); Sodium 138 mmol/L (135-145); Total Protein 7.8 g/dL (6.5-8.0)
[2024-01-15] MEDS: Fluticasone Propionate Nasal 16 GM SPRAY 1 SPRAY NOSTRIL-B (13:14)
--- NOTE | 2024-01-15 16:08 | PC.NURSE ---
late entry: pt initially agitated upon arrival, refusing changeover, very suspicious of staff and situation. After speaking with patient, she was agreeable to microsoft exchange architect with this RN only. Pt requesting to visualize this RN placing belongings as she is still suspicious of staff. Belongings placed in locker 11. Patient sat in chair in hallway, refusing vital signs. Eventually patient was agreeable to speaking with staff as well as get blood work and some vital signs complete. Patient is now resting in her room, offering no complaints to this RN
[2024-01-15 16:26] VITALS: RESP 14
[2024-01-15] MEDS: Ziprasidone 80 MG CAPSULE PO (18:35)
--- NOTE | 2024-01-15 19:41 | MHC.CARE ---
Pt accepted to [facility] for tonight 01/14. Accepting is Dr. Blackmon. ETA ANIKET. Accepting facility will call for N2N
[2024-01-15] MEDS: Tiotropium Bromide 2.5 mcg 1 PUFF/2.5 MCG MIST.INHAL 2 PUFF INHALE (20:42)
[2024-01-15] MEDS: Topiramate 25 MG TABLET 50 MG PO (20:42)
[2024-01-15] MEDS: Atorvastatin Calcium 10 MG TABLET PO (20:42)
[2024-01-15] MEDS: Albuterol Sulfate 90 MCG 8 GM INHALER 2 PUFF INHALE (20:50)
[2024-01-15 20:59] VITALS: BP 137/96; PULSE 108; RESP 20; TEMP 36.4; O2SAT 97
[2024-01-15 21:21] VITALS: BP 137/96; PULSE 88; RESP 20; TEMP 36.4; O2SAT 97
[2024-01-15 21:28] LABS: Appearance Urine Cloudy; Color Urine Yellow; Glucose Urine UA Negative (Negative); Leukocyte Esterase Urine Trace (Negative); Nitrite Urine Negative (Negative); PH 6.5 (5.0-9.0); UMIC TRIGGER UACC YES; UPreg QC Valid YES; Urine Blood Negative (Negative); Urine Ketones Negative (Negative); Urine Pregnancy NEGATIVE (NEGATIVE); Urine Protein Trace mg/dL (Neg-Trace)
[2024-01-15 21:35] LABS: Amphetamine Screen Urine Not Detected (Not Detect); Barbiturates, Urine Not Detected (Not Detect); Benzodiazepines Screen Urine Not Detected (Not Detect); Buprenorphine Scr Not Detected (Not Detect); Cannabinoid Screen Urine POSITIVE (Not Detect); Cocaine Screen Urine Not Detected (Not Detect); Fentanyl, urine Not Detected (Not Detect); Methadone Screen, Urine Not Detected (Not Detect); Opiate Screen Urine Not Detected (Not Detect); Oxycodone Screen Urine Not Detected (Not Detect); Phencyclidine Screen Urine Not Detected (Not Detect)
--- NOTE | 2024-01-15 21:49 | MHC.CARE ---
This sign writer letterer or painter spoke to Michael from the RAD team who indicated that he contacted [facility] to obtain authorization as the pt was seen in the community and transported [facility] for medical clearance and to [facility] for inpatient placement. He stated that he received a call back from Kira Peters the [facility] baggage handling supervisor, who was questioning why they were obtaining authorization when the disposition was [facility]. This sign writer letterer or painter spoke to [facility] baggage handling supervisor Kira Peters in regard to pt as it is noted multiple times throughout the evaluation that pt is appropriate for inpatient level of care and was sent to the ED on a section 12 to await placement. Kira indicated that after looking further into the evaluation she agrees that the disposition is inpatient level of care and stated that she would follow up with the clinician tomorrow regarding the documentation as there are inconsistencies regarding the disposition as she does not feel comfortable sending the evaluation to [facility] until the appropriate changes are made so there is no further confusion. She indicated that they will obtain the authorization first thing tomorrow morning and contact the Care Team with the information. This sign writer letterer or painter informed her that the pt was accepted to [facility] so the authorization can be passed directly to the facility once obtained. It is to be noted, this sign writer letterer or painter did meet with patient to determine she was appropriate for an inpatient admission prior to being transported to [facility] and after a mental status update, pt continues to meet criteria for a higher level of care and is agreeable to be transferred to [facility] for further treatment. Pt will be transported to [facility] at this time and further follow up will occur as needed moving forward. Information was passed to first security shift manager as well.
[2024-01-15 21:57] LABS: Bacteria Urine 1+ (None Seen); Hyaline Casts Urine 0-2 /LPF (0-2); RBC Urine 0-2 /HPF (0-2); WBC Urine 0-5 /HPF (0-5)
== END 2024-01-15 21:22 ==
PROVIDERS: Physician Assistant; Emergency Provider Emergency Medicine; PCP Internal Medicine
DX: F31.89 Other bipolar disorder (principal); F22 Delusional disorders; J45.909 Unspecified asthma, uncomplicated; F43.10 Post-traumatic stress disorder, unspecified; F17.200 Nicotine dependence, unspecified, uncomplicated; Z91.148 Patient's other noncompliance with medication regimen for other reason; Z79.899 Other long term (current) drug therapy; Z51.81 Encounter for therapeutic drug level monitoring
CPT/HCPCS: 36415; 80048; 80076; 80307; 81001; 81025; 83735; 85025; 99285; S9485

== ENCOUNTER 2024-01-23 08:49 | Emergency (ER) | payer OTHER, SELFPAY ==
[2024-01-23 09:03] VITALS: BP 137/89; PULSE 108; RESP 16; TEMP 37; O2SAT 97; BMI 49.4
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
[2024-01-23 10:30] LABS: MANUAL DIFF FLAG NO
[2024-01-23 10:32] LABS: Basophils Absolute Auto 0.1 X10*3/uL (0.0-0.2); Basophils Percent Auto 0.5 % (0-2); Eosinophils Absolute Auto 0.2 X10*3/uL (0.0-0.4); Eosinophils Percent Auto 1.9 % (0-4); Hematocrit 39.5 % (37.0-47.0); Imm Gran Abs Auto 0.06 X10*3/uL (0.00-0.03); Imm Gran Pct Auto 0.5 % (0.0-0.4); Lymphocytes Percent Auto 26.2 % (20-40); Mean Corpuscular HGB Conc 32.9 g/dl (31.0-35.0); Mean Corpuscular Hemoglobin 30.4 pg (27.0-33.0); Mean Corpuscular Volume 92.3 fL (80.0-98.0); Mean Platelet Volume 9.3 fL (9.4-12.3); Monocytes Absolute Auto 0.6 X10*3/uL (0.1-1.2); Monocytes Percent Auto 4.8 % (2-11); Neutrophils Absolute Auto 7.5 x10*3/uL (2.0-8.3); Neutrophils Percent Auto 66.1 % (45-73); Platelet Count 493 X10*3/uL (160-400); Red Blood Count 4.28 X10*6/uL (4.20-5.50); Red Cell Distribution Width 12.1 % (11.0-16.0); White Blood Count 11.4 X10*3/uL (4.8-10.8)
[2024-01-23] MEDS: cefTRIAXone sodium 500 MG VIAL IM (10:40)
[2024-01-23] MEDS: Doxycycline Monohydrate 100 MG CAPSULE PO (10:41)
[2024-01-23 10:51] VITALS: BP 137/89; PULSE 108; RESP 16; TEMP 37; O2SAT 97
[2024-01-23 10:59] LABS: Alanine Aminotransferase 24 U/L (0-31); Albumin Level 4.2 g/dL (3.5-5.0); Alkaline Phosphatase 92 U/L (39-117); Anion Gap 11 (12-20); Aspartate Amino Transferase 16 U/L (5-31); Bilirubin Total 0.3 mg/dL (0.0-1.0); Blood Urea Nitrogen 14 mg/dL (9-16); Calcium 9.4 mg/dL (8.4-10.2); Carbon Dioxide 22 mmol/L (22-29); Chloride 110 mmol/L (96-108); Creatinine Clr Calc Pharmacy 113.7; Estimated Glomerular Filt Rate > 60; Glucose Random 98 mg/dL (60-115); Magnesium 2.2 mg/dL (1.6-2.6); Sodium 139 mmol/L (135-145); Total Protein 7.5 g/dL (6.5-8.0)
[2024-01-23 11:05] LABS: HCG Quantitative < 2 mIU/mL
[2024-01-23 11:15] LABS: HBS Num1 2.94 mIU/mL (0-7.99); HBc Num1 0.08 S/CO (0.00-0.79); HBsAGNum1 0.29 S/CO (0.00-0.99); HIV AB/AG Nonreactive (Nonreactive); HIV Num 1 0.04 S/CO (0.00-0.99); Hepatitis A Antibody IgM 0.19 Index (0-0.79); Hepatitis B Core Antibody Nonreactive (Nonreactive); Hepatitis B Surface Antigen Negative (Negative); ~HepC Num1 0.09 S/CO (0.00-0.79); ~Hepatitis A Antibody IgM Nonreactive (Nonreactive); ~Hepatitis B Surface Antibody NONREACTIVE (Nonreactive); ~Hepatitis C Antibody Nonreactive (Nonreactive)
[2024-01-23 12:27] LABS: CT PCR NOT DETECTED (Not Detect.); NG PCR NOT DETECTED (Not Detect.)
[2024-01-23 14:39] LABS: Bacterial Vaginosis PCR NEGATIVE (Negative); Candida Group PCR NOT DETECTED (Not Detect); Candida glab krusei PCR NOT DETECTED (Not Detect); Trichomonas vaginalis PCR NOT DETECTED (Not Detect)
== END 2024-01-23 10:51 | disposition home or self-care (01) ==
PROVIDERS: Physician Assistant; Emergency Provider Emergency Medicine; PCP Internal Medicine
DX: S50.11XA Contusion of right forearm, initial encounter (principal); T76.21XA Adult sexual abuse, suspected, initial encounter; R10.2 Pelvic and perineal pain; X58.XXXA Exposure to other specified factors, initial encounter; Y93.9 Activity, unspecified; Y92.129 Unspecified place in nursing home as the place of occurrence of the external cause; Y99.8 Other external cause status; Z20.2 Contact with and (suspected) exposure to infections with a predominantly sexual mode of transmission; Z79.899 Other long term (current) drug therapy
CPT/HCPCS: 0352U; 36415; 80053; 83735; 84702; 85025; 86704; 86706; 86709; 86803; 87340; 87389; 87491; 87591; 96372; 99282; 99284; J0696

== ENCOUNTER 2024-01-27 00:32 | Emergency (ER) | payer OTHER, SELFPAY ==
[2024-01-27 00:42] VITALS: BP 120/73; PULSE 94; RESP 20; TEMP 37.1; O2SAT 96; BMI 49.4
--- NOTE | 2024-01-27 04:40 | PC.NURSE ---
pt not in waiting room at this time.
== END 2024-01-27 04:48 | disposition left against medical advice (07) ==
PROVIDERS: Emergency Provider Emergency Medicine
DX: M79.604 Pain in right leg (principal); M79.605 Pain in left leg
CPT/HCPCS: 99281

== ENCOUNTER 2024-01-27 08:32 | Emergency (ER) | payer OTHER, SELFPAY ==
--- NOTE | ~2024-01-27 | XR_ITS ---
EXAMINATION: XR FOOT, RIGHT XR FOOT, LEFT CLINICAL INFORMATION: Bilateral foot/toe pain. COMPARISON: None. TECHNIQUE: AP, oblique, and lateral views of the right and left foot. FINDINGS: Right foot: No acute fracture or dislocation. No joint space narrowing or marginal osteophytes. No osseous erosion. No abnormal soft tissue calcification. Left foot: No acute fracture or dislocation. No joint space narrowing or marginal osteophytes. No osseous erosion. No abnormal soft tissue calcification. XR/XR foot LT min 3V IMPRESSION: RIGHT FOOT: Unremarkable examination. LEFT FOOT: Unremarkable examination. Electronically signed by: Michael Boles MD 01/27/2024 11:17 AM EDT
--- NOTE | ~2024-01-27 | XR_ITS ---
EXAMINATION: XR HIP, LEFT CLINICAL INFORMATION: Left hip pain following injury. COMPARISON: None available. TECHNIQUE: Two views of the left hip. FINDINGS: No acute fracture or dislocation. No joint space narrowing. Lateral acetabular marginal osteophytes. No osseous erosion. No abnormal soft tissue calcification. IUD within the pelvis. XR/XR hip LT w PEL1V IMPRESSION: 1. No acute fracture or dislocation. 2. Minimal left hip osteoarthritis. Electronically signed by: Michael Boles MD 01/27/2024 11:18 AM EDT
--- NOTE | ~2024-01-27 | XR_ITS ---
EXAMINATION: XR FOOT, RIGHT XR FOOT, LEFT CLINICAL INFORMATION: Bilateral foot/toe pain. COMPARISON: None. TECHNIQUE: AP, oblique, and lateral views of the right and left foot. FINDINGS: Right foot: No acute fracture or dislocation. No joint space narrowing or marginal osteophytes. No osseous erosion. No abnormal soft tissue calcification. Left foot: No acute fracture or dislocation. No joint space narrowing or marginal osteophytes. No osseous erosion. No abnormal soft tissue calcification. XR/XR foot RT min 3V IMPRESSION: RIGHT FOOT: Unremarkable examination. LEFT FOOT: Unremarkable examination. Electronically signed by: Michael Boles MD 01/27/2024 11:17 AM EDT
[2024-01-27 08:38] VITALS: BP 134/80; BP 135/75; PULSE 88; PULSE 96; RESP 16; TEMP 36.7; O2SAT 95; O2SAT 99; BMI 51.2
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
[2024-01-27 11:54] VITALS: BP 145/90; PULSE 101; RESP 16; TEMP 36.6; O2SAT 98
[2024-01-27 11:56] VITALS: BP 145/90; PULSE 101; RESP 18; TEMP 36.6; O2SAT 98
== END 2024-01-27 12:01 | disposition home or self-care (01) ==
PROVIDERS: Emergency Provider Emergency Medicine; PCP Internal Medicine
DX: S90.112A Contusion of left great toe without damage to nail, initial encounter (principal); S90.111A Contusion of right great toe without damage to nail, initial encounter; R10.32 Left lower quadrant pain; M25.552 Pain in left hip; F17.210 Nicotine dependence, cigarettes, uncomplicated; X58.XXXA Exposure to other specified factors, initial encounter; Y93.89 Activity, other specified; Y92.89 Other specified places as the place of occurrence of the external cause; Y99.8 Other external cause status; Z79.899 Other long term (current) drug therapy; Z20.2 Contact with and (suspected) exposure to infections with a predominantly sexual mode of transmission
CPT/HCPCS: 73502; 73630; 99283; 99284

== ENCOUNTER 2024-01-29 11:42 | Emergency (ER) | payer OTHER, SELFPAY ==
[2024-01-29 11:56] VITALS: BP 158/60; PULSE 102; O2SAT 100
[2024-01-29 12:06] VITALS: BP 145/85; PULSE 100; RESP 18; TEMP 36.2; O2SAT 97; BMI 48.6
--- NOTE | 2024-01-29 12:10 | ECG_ITS ---
Test Reason : PALPITATION Blood Pressure : / mmHG Vent. Rate : 097 BPM Atrial Rate : 097 BPM P-R Int : 148 ms QRS Dur : 090 ms QT Int : 370 ms P-R-T Axes : 007 052 010 degrees QTc Int : 469 ms Normal sinus rhythm Normal ECG When compared with ECG of 01-NOV-2021 03:25, No significant change was found Referred By: Devonte Collins Electronically Signed By:ESPERANZA MELÉNDEZ
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
[2024-01-29 12:46] LABS: MANUAL DIFF FLAG NO
[2024-01-29 12:48] LABS: Basophils Percent Auto 0.4 % (0-2); Eosinophils Absolute Auto 0.1 X10*3/uL (0.0-0.4); Hemoglobin 13.1 g/dl (12.0-16.0); Imm Gran Abs Auto 0.08 X10*3/uL (0.00-0.03); Imm Gran Pct Auto 0.7 % (0.0-0.4); Lymphocytes Percent Auto 26.5 % (20-40); Mean Corpuscular HGB Conc 33.6 g/dl (31.0-35.0); Mean Corpuscular Hemoglobin 30.2 pg (27.0-33.0); Mean Corpuscular Volume 89.9 fL (80.0-98.0); Mean Platelet Volume 9.2 fL (9.4-12.3); Monocytes Absolute Auto 0.6 X10*3/uL (0.1-1.2); Monocytes Percent Auto 4.9 % (2-11); Neutrophils Absolute Auto 7.6 x10*3/uL (2.0-8.3); Neutrophils Percent Auto 66.5 % (45-73); Platelet Count 481 X10*3/uL (160-400); Red Blood Count 4.34 X10*6/uL (4.20-5.50); Red Cell Distribution Width 12.2 % (11.0-16.0); White Blood Count 11.4 X10*3/uL (4.8-10.8)
[2024-01-29 12:55] LABS: INTERNATIONAL NORM RATIO 1.1 (0.9-1.1); Prothrombin Time 12.5 SEC (10.9-12.4)
[2024-01-29 12:58] LABS: Partial Thromboplastin Time 30.5 SEC (26.0-36.8)
[2024-01-29 13:11] LABS: Alanine Aminotransferase 18 U/L (0-31); Albumin Level 4.2 g/dL (3.5-5.0); Alkaline Phosphatase 87 U/L (39-117); Anion Gap 12 (12-20); Aspartate Amino Transferase 15 U/L (5-31); Bilirubin Total 0.3 mg/dL (0.0-1.0); Blood Urea Nitrogen 13 mg/dL (9-16); Calcium 9.6 mg/dL (8.4-10.2); Carbon Dioxide 22 mmol/L (22-29); Chloride 110 mmol/L (96-108); Creatinine Clr Calc Pharmacy 111.4; Estimated Glomerular Filt Rate > 60; Glucose Random 90 mg/dL (60-115); Lipase 5 U/L (8-78); Potassium 3.2 mmol/L (3.3-5.1); Sodium 141 mmol/L (135-145); Total Protein 7.5 g/dL (6.5-8.0)
[2024-01-29 13:18] LABS: HCG Quantitative < 2 mIU/mL; Troponin-I High Sensitivity < 2.7 ng/L (<3.5-17.0)
[2024-01-29 16:24] VITALS: BP 136/76; PULSE 91; RESP 15; TEMP 36.6; O2SAT 96
== END 2024-01-29 17:05 | disposition left against medical advice (07) ==
PROVIDERS: Physician Assistant; Emergency Provider Emergency Medicine
DX: R00.2 Palpitations (principal); R25.1 Tremor, unspecified; R10.9 Unspecified abdominal pain; R10.2 Pelvic and perineal pain; R50.9 Fever, unspecified; F17.210 Nicotine dependence, cigarettes, uncomplicated; Z79.899 Other long term (current) drug therapy
CPT/HCPCS: 36415; 80053; 83690; 84484; 84702; 85025; 85610; 85730; 93005; 99283

== ENCOUNTER 2024-02-01 03:48 | Emergency (ER) | payer OTHER, SELFPAY ==
--- NOTE | 2024-02-01 | ECG_ITS ---
Test Reason : ABD PAIN Blood Pressure : / mmHG Vent. Rate : 096 BPM Atrial Rate : 096 BPM P-R Int : 136 ms QRS Dur : 088 ms QT Int : 368 ms P-R-T Axes : -09 041 006 degrees QTc Int : 464 ms Normal sinus rhythm Normal ECG When compared with ECG of 29-JAN-2024 12:20, No significant change was found Referred By: Generic ED Physician Electronically Signed By:ESPERANZA MELÉNDEZ
[2024-02-01 03:55] VITALS: BP 130/76; BP 152/90; PULSE 103; PULSE 97; RESP 18; TEMP 36.9; O2SAT 95; O2SAT 97; BMI 48.6
[2024-02-01 04:40] LABS: Basophils Absolute Auto 0.1 X10*3/uL (0.0-0.2); Basophils Percent Auto 0.4 % (0-2); Eosinophils Absolute Auto 0.1 X10*3/uL (0.0-0.4); Eosinophils Percent Auto 0.4 % (0-4); Hematocrit 34.9 % (37.0-47.0); Hemoglobin 11.8 g/dl (12.0-16.0); Imm Gran Abs Auto 0.05 X10*3/uL (0.00-0.03); Imm Gran Pct Auto 0.4 % (0.0-0.4); Lymphocytes Absolute Auto 2.6 X10*3/uL (1.2-4.9); Lymphocytes Percent Auto 22.4 % (20-40); MANUAL DIFF FLAG NO; Mean Corpuscular HGB Conc 33.8 g/dl (31.0-35.0); Mean Corpuscular Hemoglobin 30.2 pg (27.0-33.0); Mean Corpuscular Volume 89.3 fL (80.0-98.0); Mean Platelet Volume 8.9 fL (9.4-12.3); Monocytes Absolute Auto 0.6 X10*3/uL (0.1-1.2); Monocytes Percent Auto 5.6 % (2-11); Neutrophils Absolute Auto 8.1 x10*3/uL (2.0-8.3); Neutrophils Percent Auto 70.8 % (45-73); Platelet Count 415 X10*3/uL (160-400); Red Blood Count 3.91 X10*6/uL (4.20-5.50); Red Cell Distribution Width 12.4 % (11.0-16.0); White Blood Count 11.5 X10*3/uL (4.8-10.8)
[2024-02-01 04:54] LABS: Alanine Aminotransferase 20 U/L (0-31); Albumin Level 4.1 g/dL (3.5-5.0); Alkaline Phosphatase 88 U/L (39-117); Anion Gap 13 (12-20); Aspartate Amino Transferase 20 U/L (5-31); Bilirubin Total 0.5 mg/dL (0.0-1.0); Blood Urea Nitrogen 11 mg/dL (9-16); Calcium 9.7 mg/dL (8.4-10.2); Carbon Dioxide 22 mmol/L (22-29); Chloride 109 mmol/L (96-108); Creatinine Clr Calc Pharmacy 124.9; Estimated Glomerular Filt Rate > 60; Glucose Random 106 mg/dL (60-115); Potassium 3.1 mmol/L (3.3-5.1); Sodium 141 mmol/L (135-145); Total Protein 7.1 g/dL (6.5-8.0)
--- NOTE | 2024-02-01 05:00 | PC.NURSE ---
pt biba from home, a&ox4, respirations even and unlabored . pt reporting onset of epigastric burning x3 days. pt reports intermittent nausea but denies vomiting and diarrhea. pt reports normal PO intake but reports she feels it is gastric reflux. 20G placed in left forearm.
[2024-02-01 05:05] LABS: Troponin-I High Sensitivity < 2.7 ng/L (<3.5-17.0)
[2024-02-01 06:26] VITALS: BP 122/75; PULSE 97; RESP 22; TEMP 36.8; O2SAT 96
--- NOTE | 2024-02-01 06:36 | ED.ABDPAIN ---
HPI - Abdominal Pain General Chief Complaint: Abdominal Pain Stated Complaint: Abd pain Time Seen by Provider: 02/01/24 06:35 Source: patient Mode of arrival: ambulatory Limitations: no limitations History of Present Illness ED Provider: BROOKS TOLEDO PA-C HPI narrative: 38 year old female with pmhx significant for asthma, vertigo, hypokalemia, PTSD, depression, bipolar disorder presents to the ED today for epigastric abdominal pain which began last night after eating dinner and has since resolved. Endorses associated nausea without vomiting. Admits to hx of acid reflux for which she takes omeprazole daily. States this feels like her acid reflux. Endorses chronic constipation for which she has a bowel regimen at home. Last BM yesterday. Denies fever, chills, sore throat, chest pain, flank pain, diarrhea, dysuria, hematuria, vaginal discharge. Related Data Home Medications ?Medication ?Instructions ?Recorded ?Confirmed fluticasone propionate 115 2 puff inhalation BID 01/07/24 01/15/24 mcg-salmeterol 21 mcg/actuation HFA inhaler (Advair HFA) trazodone 100 mg tablet 200 mg PO BEDTIME PRN Insomnia 01/07/24 01/15/24 umeclidinium 62.5 mcg/actuation 1 inh inhalation BEDTIME 01/07/24 01/15/24 blister powder for inhalation (Incruse Ellipta) ziprasidone HCl 80 mg capsule 80 mg PO BIDWM 01/07/24 01/15/24 Previous Rx's ?Medication ?Instructions ?Recorded nicotine 21 mg/24 hr daily 1 patch transdermal DAILY #28 ea 08/30/22 transdermal patch topiramate 50 mg tablet 50 mg PO BEDTIME #30 tabs 06/27/23 meclizine 25 mg tablet 25 mg PO DAILY PRN for motion 09/15/23 sickness #90 tabs acetaminophen 650 mg 650 mg PO Q8H PRN pain 30 days #90 11/01/23 tablet,extended release tabs cyclobenzaprine 10 mg tablet 10 mg PO TID PRN muscle spasm 30 11/02/23 days #90 tabs albuterol sulfate 90 mcg/actuation 2 puff PO Q4H PRN bronchospasm 30 11/17/23 aerosol inhaler (Ventolin HFA) days #18 grams fluticasone propionate 50 1 spray intranasal DAILY 30 days 11/17/23 mcg/actuation nasal #16 grams spray,suspension (Flonase Allergy Relief) montelukast 10 mg tablet 10 mg PO DAILY 90 days #90 tabs 12/17/23 amlodipine 5 mg tablet 5 mg PO DAILY #30 tabs 01/13/24 atorvastatin 10 mg tablet 10 mg PO BEDTIME 90 days #90 tabs 01/13/24 buspirone 30 mg tablet 30 mg PO BID 90 days #180 tabs 01/13/24 omeprazole 20 mg capsule,delayed 20 mg PO DAILY@0630 90 days #90 01/13/24 release caps sertraline 50 mg tablet 50 mg PO DAILY 90 days #90 tabs 01/13/24 doxycycline hyclate 100 mg capsule 100 mg PO BID 7 days #14 caps 01/23/24 ondansetron 4 mg disintegrating 4 mg PO DAILY PRN nausea and 02/01/24 tablet vomiting 5 days #10 tabs Allergies Allergy/AdvReac Type Severity Reaction Status Date / Time animal dander [PET DANDER] Allergy Unknown ITCHING Verified 02/01/24 04:00 bee pollen [BEE STINGS] Allergy Unknown SWELLING Verified 02/01/24 04:00 house dust Allergy Unknown Unknown Verified 02/01/24 04:00 shellfish derived Allergy Unknown SWELLING Verified 02/01/24 04:00 [SHELLFISH DERIVED] SEASONAL ALLERGIES Allergy Unknown ITCHING Uncoded 02/01/24 04:00 Review of Systems Review of Systems Constitutional: No fever, chills, fatigue, night sweats, weight changes ENT/Mouth: No ear pain, hearing loss, nasal congestion, sinus pain, rhinorrhea, sore throat Eyes: No eye pain, swelling, redness, vision changes, discharge Cardio: No chest pain, palpitations, MURO, orthopnea, peripheral edema Pulm: No SOB, cough, sputum, wheezing, dyspnea, hemoptysis GI: No nausea, vomiting, hematemesis, abdominal pain, diarrhea, constipation, hematochezia, melena : No irregular bleeding, dysuria, frequency, urgency, hesitancy, hematuria, flank pain, urinary flow changes, urinary incontinence or retention MSK: No back pain, neck pain, joint pain, myalgias Skin: No lesions, rashes Neuro: No weakness, numbness, paresthesias, LOC, dizziness, headache Psych: No anxiety/panic, depression, SI/HI, AH/VH All other systems reviewed and are negative. [facility] Past Medical History Attestation statement: The following information was validated with the patient. Source: old records reviewed and nursing notes reviewed Medical History Severe asthma with allergic rhinitis Allergic rhinitis Vertigo Surgical History No pertinent past surgical history Family History Family History Father Lung cancer CVD (cardiovascular disease) Mother Past heart attack Diabetes Emphysema lung CVD (cardiovascular disease) Family/Other FH: mental illness Maternal Grandmother No problems noted. Paternal Grandmother No problems noted. Social History Social History Housing: Apartment Alcohol intake: never Patient Tobacco Use Status: Current everyday Tobacco user Cigarette Packs Per Day: 1 Smoked in Last 30 Days: Yes Use of substances other than those prescribed or required for medical reasons: No Substance Use Type: Marijuana Advance Directives: No Advance Directives Information Provided: No Do you have a plan to hurt others: No Plan Patient : No service: No Current occupational status: unemployed Cognitive needs: No Hearing needs: No Vision needs: No Physical Exam ED Vital Signs: Vital Signs - 24 hr 02/01/24 03:55 02/01/24 06:26 02/01/24 07:15 Temperature 98.4 F 98.2 F 98.2 F Pulse Rate 97 97 97 Respiratory Rate 18 22 H 22 H Blood Pressure 130/76 122/75 122/75 Pulse Oximetry 97 96 96 Oxygen Delivery Method Room Air Room Air Room Air BMI result Body Mass Index 48.6 vital signs stable General: Well appearing, in no acute distress. Skin: Warm, dry, intact. No rashes or lesions. Head: Normocephalic, atraumatic. EENT: Hearing is intact b/l. Conjunctiva clear. PERRLA. EOM intact. Moist mucous membranes.? Neck: Supple without LAD Cardiac: Chest wall symmetric. RRR. No MRG. No JVD. Lungs: Normal respiratory effort without accessory muscle use. CTA bilaterally Abdomen: obese abd, soft, non-tender, non-distended. No rebound tenderness or guarding. Positive BS x4. Back: No midline spinous or paraspinal tenderness. No step off deformity. Ext: Upper and lower extremities atraumatic, without tenderness, deformity, swelling or erythema. Full ROM throughout. Neuro: AOx3. Normal speech. Ambulating with steady gait. Psych: Appropriate mood and affect. Responds appropriately to questions. Course Course Course Narrative: 714 -- CBC with slight leukocytosis to 11.5 without left shift. This appears to be around patient's baseline. H&H 11.8/34.9. Chemistry showing hypokalemia to 3.1 > chronic when compared to priors. Normal magnesium. 60 mcg PO potassium ordered. Initial troponin undetectable. > exam benign. patient's symptoms have completely resolved prior to my examination. clinical suspicion for patient's chronic GERD. Lower suspicion for biliary/pancreatic etiology. plan to send patient home with zofran. Patient has remained stable throughout ED visit today. Discussed worrisome signs and symptoms and when to return to the ED. All questions answered at this time. Patient is agreeable with disposition and stable for discharge. Medical Decision Making Medical Decision Making [facility] Narrative: 38 year old female with pmhx significant for asthma, vertigo, hypokalemia, PTSD, depression, bipolar disorder presents to the ED today for epigastric abdominal pain which began last night after eating dinner and has since resolved, most consistent with GERD. Differential diagnosis includes biliary colic, renal colic, nephrolithiasis, gastroenteritis, anemia, electrolyte abnormality. Lower suspicion for ACS, arrhythmia. Abdominal exam without peritoneal signs. No evidence of acute abdomen at this time. Well appearing. Moderate suspicion for acute hepatobiliary disease (including acute cholecystitis). Less likely to represent acute pancreatitis, PUD (including perforation), acute infectious processes (pneumonia, hepatitis, pyelonephritis), atypical appendicitis, vascular catastrophe, bowel obstruction or viscus perforation. Presentation not consistent with other acute, emergent causes of abdominal pain at this time. Plan: labs, EKG Differential Diagnosis Differential Diagnoses: The differential diagnosis associated with the presentation includes as above. Admission/Observation not indicated. Lab Data [facility] Lab Attestation statement: I reviewed the patient's lab results. as above. 02/01/24 04:33 09/29/24 04:33 Labs: Lab Results 02/01/24 Range/Units 04:33 WBC 11.5 H (4.8-10.8) X10*3/uL RBC 3.91 L (4.20-5.50) X10*6/uL Hgb 11.8 L (12.0-16.0) g/dl Hct 34.9 L (37.0-47.0) % MCV 89.3 (80.0-98.0) fL MCH 30.2 (27.0-33.0) pg MCHC 33.8 (31.0-35.0) g/dl RDW 12.4 (11.0-16.0) % Plt Count 415 H (160-400) X10*3/uL MPV 8.9 L (9.4-12.3) fL Immature Gran % (Auto) 0.4 (0.0-0.4) % Neut % (Auto) 70.8 (45-73) % Lymph % (Auto) 22.4 (20-40) % [place] % (Auto) 5.6 (2-11) % Eos % (Auto) 0.4 (0-4) % Baso % (Auto) 0.4 (0-2) % Lymph # (Auto) 2.6 (1.2-4.9) X10*3/uL [place] # (Auto) 0.6 (0.1-1.2) X10*3/uL Eos # (Auto) 0.1 (0.0-0.4) X10*3/uL Baso # (Auto) 0.1 (0.0-0.2) X10*3/uL Abs Immat Gran (auto) 0.05 H (0.00-0.03) X10*3/uL Absolute Neuts (auto) 8.1 (2.0-8.3) x10*3/uL Absolute Nucleated RBC 0.000 (0.0-0.012) X10*3/uL Nucleated RBC % (auto) 0.0 (0.0-0.2) /100WBC Sodium 141 (135-145) mmol/L Potassium 3.1 L (3.3-5.1) mmol/L Chloride 109 H (96-108) mmol/L Carbon Dioxide 22 (22-29) mmol/L Anion Gap 13 (12-20) BUN 11 (9-16) mg/dL Creatinine 0.74 (0.5-1.4) mg/dL Estim Creat Clear Calc 124.9 Estimated GFR > 60 Random Glucose 106 (60-115) mg/dL Calcium 9.7 (8.4-10.2) mg/dL Magnesium 1.9 (1.6-2.6) mg/dL Total Bilirubin 0.5 (0.0-1.0) mg/dL AST 20 (5-31) U/L ALT 20 (0-31) U/L Alkaline Phosphatase 88 (39-117) U/L Troponin I High Sens < 2.7 (<3.5-17.0) ng/L Total Protein 7.1 (6.5-8.0) g/dL Albumin 4.1 (3.5-5.0) g/dL Independent Interpretation I performed an independent interpretation of an: EKG Interpretation: EKG showing NSR with a rate of 96 bpm, QT 368, QTC 464, no acute ischemic changes or ST elevations. Independent Historian Clinical information obtained from an independent historian. History obtained from or confirmed by: Spouse External Record Review External record reviewed: Inpatient record, Office record, Outpatient record, Prior outpatient labs, Prior outpatient radiology, Primary care record and Outside ED record Tests considered The following testing was considered but not selected: Considered imaging abdomen physical exam benign, resolution of symptoms. Prescription Management I considered prescription management with: Other (Zofran) Social Determinants Patient?s care significantly limited by Social Determinants of Health including: Other Social Determinant of Health Medications Administered Discontinued Medications Generic Name Dose Route Start Last Admin Trade Name Shaheed PRN Reason Stop Dose Admin Potassium Chloride 60 meq 02/01/24 06:53 02/01/24 07:13 Potassium Chloride Packet 20 Meq Packet PO 02/01/24 06:54 60 meq ONCE ONE Administration Critical Care Time Critical Care Time Critical Care Time: No Discharge Plan Discharge Clinical Impression: Hypokalemia, Epigastric abdominal pain Patient Disposition: Home, Self-Care Instructions: Potassium Content of Foods List (ED), Hypokalemia (ED), Abdominal Pain (ED) Additional Instructions: Your blood work showed low levels of potassium. This was repleted in the ED today. Please follow up with your PCP in 2 weeks to recheck potassium levels. Your blood work was otherwise reassuring. Your abdominal pain/ nausea resolved without any interventions. Continue come medications as prescribed. Zofran is an anti-nausea medication that has been sent to your pharmacy for you to take as needed. Return with new or worsening symptoms. In the case of an emergency call 911. Prescriptions: New ondansetron 4 mg tablet,disintegrating 4 mg PO DAILY PRN (Reason: nausea and vomiting) 5 Days Qty: 10 0RF No Action topiramate 50 mg tablet 50 mg PO BEDTIME Qty: 30 6RF meclizine 25 mg tablet 25 mg PO DAILY PRN (Reason: for motion sickness) Qty: 90 2RF acetaminophen 650 mg tablet extended release 650 mg PO Q8H PRN (Reason: pain) 30 Days Qty: 90 3RF cyclobenzaprine 10 mg tablet 10 mg PO TID PRN (Reason: muscle spasm) 30 Days Qty: 90 3RF albuterol sulfate [Ventolin HFA] 90 mcg/actuation HFA aerosol inhaler 2 puff PO Q4H PRN (Reason: bronchospasm) 30 Days Qty: 18 5RF fluticasone propionate [Flonase Allergy Relief] 50 mcg/actuation spray,suspension 1 spray intranasal DAILY 30 Days Qty: 16 5RF Rx Instructions: administer into each nostril montelukast 10 mg tablet 10 mg PO DAILY 90 Days Qty: 90 3RF amlodipine 5 mg tablet 5 mg PO DAILY Qty: 30 0RF atorvastatin 10 mg tablet 10 mg PO BEDTIME 90 Days Qty: 90 1RF buspirone 30 mg tablet 30 mg PO BID 90 Days Qty: 180 1RF sertraline 50 mg tablet 50 mg PO DAILY 90 Days Qty: 90 1RF omeprazole 20 mg capsule,delayed release(DR/EC) 20 mg PO DAILY@0630 90 Days Qty: 90 0RF doxycycline hyclate 100 mg capsule 100 mg PO BID 7 Days Qty: 14 0RF ziprasidone HCl 80 mg capsule 80 mg PO BIDWM Rx Instructions: give with food (meal/snack) trazodone 100 mg tablet 200 mg PO BEDTIME PRN (Reason: Insomnia) fluticasone propion-salmeterol [Advair HFA] 115-21 mcg/actuation HFA aerosol inhaler 2 puff inhalation BID Incruse Ellipta 62.5 mcg/actuation blister with device 1 inh INHALATION BEDTIME nicotine 21 mg/24 hr patch 24 hour 1 patch transdermal DAILY Qty: 28 0RF Referrals: [facility] [Provider Group] [facility] [Provider Group] Interventions: ED Discharge Assessment Last Done: 02/01/24 07:15 Discharge Date/Time: 02/01/24 07:19 Print Language: Indonesian
[2024-02-01] MEDS: Potassium Chloride Packet 20 MEQ PACKET 60 MEQ PO (07:13)
[2024-02-01 07:15] VITALS: BP 122/75; PULSE 97; RESP 22; TEMP 36.8; O2SAT 96
--- NOTE | 2024-02-01 07:15 | PC.NURSE ---
pateint given potassium drink, drank half of it then states she doesnt like it and doesnt want to drink the rest.
[2024-02-01 07:37] LABS: Magnesium 1.9 mg/dL (1.6-2.6)
== END 2024-02-01 07:19 | disposition home or self-care (01) ==
PROVIDERS: Physician Assistant Medical; Emergency Provider Emergency Medicine Emergency Medical Services
DX: E87.6 Hypokalemia (principal); R10.13 Epigastric pain; R11.0 Nausea; F17.210 Nicotine dependence, cigarettes, uncomplicated; Z79.899 Other long term (current) drug therapy
CPT/HCPCS: 36415; 80053; 83735; 84484; 85025; 93005; 99284; 99285

== ENCOUNTER 2024-02-01 15:04 | Emergency (ER) | payer OTHER, SELFPAY ==
[2024-02-01 15:09] VITALS: BP 150/90; PULSE 91; O2SAT 99
--- NOTE | 2024-02-01 15:24 | ED_ITS ---
HPI - General Adult General Chief complaint: General Medical Stated complaint: both knees hurt, tired, hungry, thirsty Time Seen by Provider: 02/01/24 21:35 Source: patient and old records reviewed Mode of arrival: ambulatory Limitations: no limitations History of Present Illness ED Provider: ELLE HPI narrative: 38 yo female with PMH of asthma, depression, bipolar, PTSD, just seen here this AM for GERD - cleared K was 3.1 given oral K. She comes back with chronic knee pain no new trauma, fevers, rash. She then notes she is depressed, not taking her medications and needs to talk to crisis. She denies SI/HI. She states she is not doing well. She is eating a dinner while talking to me. Her knees are bent up in kaitlynn cross apple sauce position while interviewing she has normal ROM MD complaint: depression Onset (ago): day(s) Radiation: non-radiation Severity: moderate Relieving factors: none Exacerbating factors: other (life stress) Associated symptoms: other (chronic knee pain from walking) Treatments prior to arrival: none Related Data Home Medications ?Medication ?Instructions ?Recorded ?Confirmed fluticasone propionate 115 2 puff inhalation BID 01/07/24 01/15/24 mcg-salmeterol 21 mcg/actuation HFA inhaler (Advair HFA) trazodone 100 mg tablet 200 mg PO BEDTIME PRN Insomnia 01/07/24 01/15/24 umeclidinium 62.5 mcg/actuation 1 inh inhalation BEDTIME 01/07/24 01/15/24 blister powder for inhalation (Incruse Ellipta) ziprasidone HCl 80 mg capsule 80 mg PO BIDWM 01/07/24 01/15/24 Previous Rx's ?Medication ?Instructions ?Recorded nicotine 21 mg/24 hr daily 1 patch transdermal DAILY #28 ea 08/30/22 transdermal patch topiramate 50 mg tablet 50 mg PO BEDTIME #30 tabs 06/27/23 meclizine 25 mg tablet 25 mg PO DAILY PRN for motion 09/15/23 sickness #90 tabs acetaminophen 650 mg 650 mg PO Q8H PRN pain 30 days #90 11/01/23 tablet,extended release tabs cyclobenzaprine 10 mg tablet 10 mg PO TID PRN muscle spasm 30 11/02/23 days #90 tabs albuterol sulfate 90 mcg/actuation 2 puff PO Q4H PRN bronchospasm 30 11/17/23 aerosol inhaler (Ventolin HFA) days #18 grams fluticasone propionate 50 1 spray intranasal DAILY 30 days 11/17/23 mcg/actuation nasal #16 grams spray,suspension (Flonase Allergy Relief) montelukast 10 mg tablet 10 mg PO DAILY 90 days #90 tabs 12/17/23 amlodipine 5 mg tablet 5 mg PO DAILY #30 tabs 01/13/24 atorvastatin 10 mg tablet 10 mg PO BEDTIME 90 days #90 tabs 01/13/24 buspirone 30 mg tablet 30 mg PO BID 90 days #180 tabs 01/13/24 omeprazole 20 mg capsule,delayed 20 mg PO DAILY@0630 90 days #90 01/13/24 release caps sertraline 50 mg tablet 50 mg PO DAILY 90 days #90 tabs 01/13/24 doxycycline hyclate 100 mg capsule 100 mg PO BID 7 days #14 caps 01/23/24 ondansetron 4 mg disintegrating 4 mg PO DAILY PRN nausea and 02/01/24 tablet vomiting 5 days #10 tabs Allergies Allergy/AdvReac Type Severity Reaction Status Date / Time animal dander [PET DANDER] Allergy Unknown ITCHING Verified 02/01/24 15:27 bee pollen [BEE STINGS] Allergy Unknown SWELLING Verified 02/01/24 15:27 house dust Allergy Unknown Unknown Verified 02/01/24 15:27 shellfish derived Allergy Unknown SWELLING Verified 02/01/24 15:27 [SHELLFISH DERIVED] SEASONAL ALLERGIES Allergy Unknown ITCHING Uncoded 02/01/24 04:00 Review of Systems 2 Review of Systems: Constitutional : No Fever, No Chills ENT/Mouth : No Ear Pain, No Nasal Congestion, No sore throat Eyes: No Eye Pain, No Swelling, No Redness Cardiovascular : No Chest Pain, No SOB Respiratory : No Cough, No Sputum, No Dyspnea Gastrointestinal : No Nausea, No Vomiting, No Diarrhea, No Hematochezia, No Melena Genitourinary : No Dysuria, No Urinary Frequency, No Hematuria Musculoskeletal : No Myalgias, pos joint pain Skin : No Skin Lesions, No rash Neuro : No Weakness, No Numbness, No Paresthesias, No Dizziness, No Headache Psych : positive Anxiety, positive Depression, no SI/HI All other systems reviewed and are negative [facility] Past Medical History Attestation statement: The following information was validated with the patient. Source: old records reviewed Medical History Severe asthma with allergic rhinitis Allergic rhinitis Vertigo Surgical History No pertinent past surgical history Family History Family History Father Lung cancer CVD (cardiovascular disease) Mother Past heart attack Diabetes Emphysema lung CVD (cardiovascular disease) Family/Other FH: mental illness Maternal Grandmother No problems noted. Paternal Grandmother No problems noted. Social History Social History Housing: Apartment Alcohol intake: never Patient Tobacco Use Status: Current everyday Tobacco user Cigarette Packs Per Day: 1 Smoked in Last 30 Days: Yes Use of substances other than those prescribed or required for medical reasons: No Substance Use Type: Marijuana Advance Directives: No Advance Directives Information Provided: No Do you have a plan to hurt others: No Plan Patient : No service: No Current occupational status: unemployed Cognitive needs: No Hearing needs: No Vision needs: No Physical Exam ED Vital Signs: Vital Signs - 24 hr 02/01/24 15:25 02/01/24 21:47 Temperature 97.9 F 98.1 F Pulse Rate 94 92 Respiratory Rate 18 16 Blood Pressure 139/79 128/81 Pulse Oximetry 100 97 Oxygen Delivery Method Room Air Room Air BMI result Body Mass Index 46.7 Appearance: Alert. Oriented X3. No acute distress. Eyes: Pupils equal, round and reactive to light. ENT: Pharynx normal. Neck: Normal inspection. Neck supple. CVS: Normal heart rate and rhythm. Pulses normal. Respiratory: No respiratory distress. Breath sounds normal. Abdomen: Soft and nontender. Skin: Skin warm and dry. Normal skin color. Normal skin turgor. Extremities: No lower extremity edema. No calf ttp Neuro: Oriented X 3. No motor deficit. No sensory deficit. CN2-12 intact Course Course Course Narrative: This is an RME performed by Patty Loja CNP: Additional HPI, ROS, PE not included below will be deferred to primary provider. Patient is a 38 year old female who presents emergency department for evaluation of bilateral knee pain 02/11, states she has chronic pain due to arthritis and sciatica has been taking nabumetone without relief. She was seen in the emergency department earlier today for abdominal pain, was ultimately discharged home, she states that she subsequently was walking home and then developed worsening of her pain. Endorses having depression, she wants to talk to crisis , denies SI, HI, hallucinations. Plan: NSAID, placed in waiting room pending bed availability Reevaluation(s) Reevaluation #1: observation care revealed that the patient does NOT meet psychiatric necessity for hospitalization. final disposition discussed with the patient. The patient completed observation care at 530am. Cleared by CARE team Reevaluation #2: pain is chronic in the knees doubt DVT no calf swelling Medications Administered Discontinued Medications Generic Name Dose Route Start Last Admin Trade Name Freq PRN Reason Stop Dose Admin Ibuprofen 600 mg 02/01/24 15:28 02/01/24 15:31 Ibuprofen 600 Mg Tablet PO 02/01/24 15:29 600 mg ONCE ONE Administration Potassium Chloride 40 meq 02/01/24 23:03 02/01/24 23:08 Potassium Chloride Packet 20 Meq Packet PO 02/01/24 23:04 40 meq ONCE ONE Administration Medical Decision Making Medical Decision Making MDM Narrative: 38 yo female with PMH of asthma, depression, bipolar, PTSD, here with c/o chronic knee pain no trauma she is sitting with legs crossed has normal ROM at this time she is also asking to talk to crisis - she is in no distress eating a full dinner denies drug use will obtain basic labs, recheck her K and refer to CARE team she is voluntary has no SI/HI. Differential Diagnosis Differential Diagnoses: The differential diagnosis associated with the presentation includes arthritis, depression, PTSD, poor social support Admission/Observation Consideration of admission/observation: Escalation of care including admission/observation considered physician observation started at 1020pm pending CARE team Lab Data MDM Lab Attestation statement: I reviewed the patient's lab results. 02/01/24 22:30 02/01/24 22:29 Labs: Lab Results 02/01/24 02/01/24 Range/Units 22:29 22:30 WBC 11.3 H (4.8-10.8) X10*3/uL RBC 4.03 L (4.20-5.50) X10*6/uL Hgb 11.9 L (12.0-16.0) g/dl Hct 36.1 L (37.0-47.0) % MCV 89.6 (80.0-98.0) fL MCH 29.5 (27.0-33.0) pg MCHC 33.0 (31.0-35.0) g/dl RDW 12.3 (11.0-16.0) % Plt Count 420 H (160-400) X10*3/uL MPV 9.1 L (9.4-12.3) fL Immature Gran % (Auto) 0.7 H (0.0-0.4) % Neut % (Auto) 61.5 (45-73) % Lymph % (Auto) 30.9 (20-40) % [place] % (Auto) 5.6 (2-11) % Eos % (Auto) 0.9 (0-4) % Baso % (Auto) 0.4 (0-2) % Lymph # (Auto) 3.5 (1.2-4.9) X10*3/uL [place] # (Auto) 0.6 (0.1-1.2) X10*3/uL Eos # (Auto) 0.1 (0.0-0.4) X10*3/uL Baso # (Auto) 0.1 (0.0-0.2) X10*3/uL Abs Immat Gran (auto) 0.08 H (0.00-0.03) X10*3/uL Absolute Neuts (auto) 7.0 (2.0-8.3) x10*3/uL Absolute Nucleated RBC 0.000 (0.0-0.012) X10*3/uL Nucleated RBC % (auto) 0.0 (0.0-0.2) /100WBC Sodium 140 (135-145) mmol/L Potassium 3.0 L (3.3-5.1) mmol/L Chloride 109 H (96-108) mmol/L Carbon Dioxide 21 L (22-29) mmol/L Anion Gap 13 (12-20) BUN 11 (9-16) mg/dL Creatinine 0.75 (0.5-1.4) mg/dL Estim Creat Clear Calc 120.2 Estimated GFR > 60 Random Glucose 140 H (60-115) mg/dL Calcium 9.6 (8.4-10.2) mg/dL Ethyl Alcohol < 10 mg/dL External Record Review External record reviewed: Inpatient record Social Determinants Patient?s care significantly limited by Social Determinants of Health including: Problems related to primary support group Discharge Plan Discharge Clinical Impression: Acute hypokalemia Depression Qualifiers: Depression Type: unspecified Qualified Code(s): F32.A - Depression, unspecified Patient Disposition: Home, Self-Care Instructions: Hypokalemia (ED), Depression (ED) Additional Instructions: please follow up with your outpatient mental health providers return for any worsening symptoms or concerns Prescriptions: No Action topiramate 50 mg tablet 50 mg PO BEDTIME Qty: 30 6RF meclizine 25 mg tablet 25 mg PO DAILY PRN (Reason: for motion sickness) Qty: 90 2RF acetaminophen 650 mg tablet extended release 650 mg PO Q8H PRN (Reason: pain) 30 Days Qty: 90 3RF cyclobenzaprine 10 mg tablet 10 mg PO TID PRN (Reason: muscle spasm) 30 Days Qty: 90 3RF albuterol sulfate [Ventolin HFA] 90 mcg/actuation HFA aerosol inhaler 2 puff PO Q4H PRN (Reason: bronchospasm) 30 Days Qty: 18 5RF fluticasone propionate [Flonase Allergy Relief] 50 mcg/actuation spray,suspension 1 spray intranasal DAILY 30 Days Qty: 16 5RF Rx Instructions: administer into each nostril montelukast 10 mg tablet 10 mg PO DAILY 90 Days Qty: 90 3RF amlodipine 5 mg tablet 5 mg PO DAILY Qty: 30 0RF atorvastatin 10 mg tablet 10 mg PO BEDTIME 90 Days Qty: 90 1RF buspirone 30 mg tablet 30 mg PO BID 90 Days Qty: 180 1RF sertraline 50 mg tablet 50 mg PO DAILY 90 Days Qty: 90 1RF omeprazole 20 mg capsule,delayed release(DR/EC) 20 mg PO DAILY@0630 90 Days Qty: 90 0RF doxycycline hyclate 100 mg capsule 100 mg PO BID 7 Days Qty: 14 0RF ziprasidone HCl 80 mg capsule 80 mg PO BIDWM Rx Instructions: give with food (meal/snack) trazodone 100 mg tablet 200 mg PO BEDTIME PRN (Reason: Insomnia) fluticasone propion-salmeterol [Advair HFA] 115-21 mcg/actuation HFA aerosol inhaler 2 puff inhalation BID Incruse Ellipta 62.5 mcg/actuation blister with device 1 inh INHALATION BEDTIME ondansetron 4 mg tablet,disintegrating 4 mg PO DAILY PRN (Reason: nausea and vomiting) 5 Days Qty: 10 0RF nicotine 21 mg/24 hr patch 24 hour 1 patch transdermal DAILY Qty: 28 0RF Print Language: Syriac
[2024-02-01 15:25] VITALS: BP 139/79; PULSE 94; RESP 18; TEMP 36.6; O2SAT 100; BMI 46.7
[2024-02-01] MEDS: Ibuprofen 600 MG TABLET PO (15:31)
[2024-02-01 21:47] VITALS: BP 128/81; PULSE 92; RESP 16; TEMP 36.7; O2SAT 97
--- NOTE | 2024-02-01 21:47 | PC.NURSE ---
pt from waiting room, ambulated with steady gait into room. pt a&ox4, respirations even and unlabored. pt reporting chronic leg pain, reports she has arthritis which is acting up, and reports she has been walking around increasingly due to being homeless. at this time, pt is requesting to have assistance with a place to sleep, eat and somewhere safe. pt is denying si/hi and denies any depression. charge aware.
--- NOTE | 2024-02-01 21:53 | PC.NURSE ---
Assumed care of pt. Pt brought on stretcher to hallway location. Pt in no acute distress at this time.
--- NOTE | 2024-02-01 21:59 | PC.NURSE ---
Assumed care of pt. Pt currently asking to see Care team. denies SI/HI, endorsing that she has had a bad year and has an appt for Friday to see Therapist, but has no place to stay.
[2024-02-01 22:35] LABS: MANUAL DIFF FLAG NO
[2024-02-01 22:43] LABS: Basophils Absolute Auto 0.1 X10*3/uL (0.0-0.2); Basophils Percent Auto 0.4 % (0-2); Eosinophils Absolute Auto 0.1 X10*3/uL (0.0-0.4); Eosinophils Percent Auto 0.9 % (0-4); Hematocrit 36.1 % (37.0-47.0); Hemoglobin 11.9 g/dl (12.0-16.0); Imm Gran Abs Auto 0.08 X10*3/uL (0.00-0.03); Imm Gran Pct Auto 0.7 % (0.0-0.4); Lymphocytes Absolute Auto 3.5 X10*3/uL (1.2-4.9); Lymphocytes Percent Auto 30.9 % (20-40); Mean Corpuscular Hemoglobin 29.5 pg (27.0-33.0); Mean Corpuscular Volume 89.6 fL (80.0-98.0); Mean Platelet Volume 9.1 fL (9.4-12.3); Monocytes Absolute Auto 0.6 X10*3/uL (0.1-1.2); Monocytes Percent Auto 5.6 % (2-11); Neutrophils Percent Auto 61.5 % (45-73); Platelet Count 420 X10*3/uL (160-400); Red Blood Count 4.03 X10*6/uL (4.20-5.50); Red Cell Distribution Width 12.3 % (11.0-16.0); White Blood Count 11.3 X10*3/uL (4.8-10.8)
[2024-02-01 22:52] LABS: Anion Gap 13 (12-20); Blood Urea Nitrogen 11 mg/dL (9-16); Calcium 9.6 mg/dL (8.4-10.2); Carbon Dioxide 21 mmol/L (22-29); Chloride 109 mmol/L (96-108); Creatinine Clr Calc Pharmacy 120.2; Estimated Glomerular Filt Rate > 60; Ethanol < 10 mg/dL; Glucose Random 140 mg/dL (60-115); Sodium 140 mmol/L (135-145)
[2024-02-01] MEDS: Potassium Chloride Packet 20 MEQ PACKET 40 MEQ PO (23:08)
[2024-02-02 05:33] VITALS: BP 128/81; PULSE 92; RESP 16; TEMP 36.7; O2SAT 97
== END 2024-02-02 20:25 | disposition home or self-care (01) ==
PROVIDERS: Emergency Provider Emergency Medicine; PCP Internal Medicine
DX: E87.6 Hypokalemia (principal); F33.1 Major depressive disorder, recurrent, moderate; F17.210 Nicotine dependence, cigarettes, uncomplicated; Z51.81 Encounter for therapeutic drug level monitoring; Z79.899 Other long term (current) drug therapy
CPT/HCPCS: 36415; 80048; 80307; 85025; 99284; S9485

== ENCOUNTER 2024-02-02 17:09 | Emergency (ER) | payer OTHER, SELFPAY ==
[2024-02-02 17:46] VITALS: BP 136/78; PULSE 96; O2SAT 97
== END 2024-02-02 20:40 | disposition left against medical advice (07) ==
PROVIDERS: Emergency Provider Emergency Medicine
DX: K59.00 Constipation, unspecified (principal); R53.1 Weakness

== ENCOUNTER 2024-02-04 19:19 | Inpatient (IN) | payer OTHER, SELFPAY ==
[2024-02-04] MEDS: Haloperidol Lactate 5 MG/ML VIAL 10 MG IM (19:34)
[2024-02-04] MEDS: LORazepam 2 MG/ML VIAL IM (19:34)
[2024-02-04 20:01] VITALS: BP 104/55; PULSE 91; RESP 18; TEMP 37; O2SAT 96; BMI 48.1
--- NOTE | 2024-02-04 22:04 | PC.NURSE ---
patients brother and significant other called in to check on patients well being/status
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
[2024-02-05 04:28] LABS: Appearance Urine Cloudy; Color Urine Dark Yellow; Glucose Urine UA Negative (Negative); Leukocyte Esterase Urine Small (1+) (Negative); Nitrite Urine Negative (Negative); UMIC TRIGGER UACC YES; Urine Blood Negative (Negative); Urine Ketones 40 mg/dL (Negative); Urine Protein Trace mg/dL (Neg-Trace)
[2024-02-05 04:30] LABS: UPreg QC Valid YES; Urine Pregnancy NEGATIVE (NEGATIVE)
[2024-02-05 04:36] LABS: Bacteria Urine 1+ (None Seen); RBC Urine 0-2 /HPF (0-2); UACC Culture Trigger YES; WBC Urine 0-5 /HPF (0-5)
[2024-02-05 04:37] LABS: Amphetamine Screen Urine Not Detected (Not Detect); Barbiturates, Urine Not Detected (Not Detect); Benzodiazepines Screen Urine Not Detected (Not Detect); Buprenorphine Scr Not Detected (Not Detect); Cannabinoid Screen Urine POSITIVE (Not Detect); Cocaine Screen Urine Not Detected (Not Detect); Fentanyl, urine Not Detected (Not Detect); Methadone Screen, Urine Not Detected (Not Detect); Opiate Screen Urine Not Detected (Not Detect); Oxycodone Screen Urine Not Detected (Not Detect); Phencyclidine Screen Urine Not Detected (Not Detect)
[2024-02-05 06:00] VITALS: RESP 18
--- NOTE | 2024-02-05 07:19 | PC.NURSE ---
Assumed care of patient at 0645. At this time the patient is observed resting quietly in their bed. No signs of distress observed. Breathing is even and unlabored.
--- NOTE | 2024-02-05 11:37 | PHA.MEDREC ---
Pharmacy Consult ? Medication Reconciliation Pharmacy has completed the medication reconciliation. Reviewed med rec done by nursing; matched claim history. Called [facility] to verify that all recently prescribed medications were picked up and they were. Discrepancy with amlodipine dosing bc Rx is written for 10mg; however patient's BP is low so I left as is at 5mg
--- NOTE | 2024-02-05 12:54 | MHC.CARE ---
Pt will be an inpatient psychiatric bedsearch
--- NOTE | 2024-02-05 13:16 | MHC.EDTECH ---
patient refused to get labs drawn , Patient states she had labs drawn for 15 days and we should have the results on them.
[2024-02-05] MEDS: busPIRone HCl 10 MG TABLET 30 MG PO ×2 (13:40→21:24)
[2024-02-05] MEDS: amLODIPine Besylate 5 MG TABLET PO (13:40)
[2024-02-05] MEDS: Sertraline HCL 50 MG TABLET PO (13:41)
[2024-02-05] MEDS: Omeprazole 20 MG CAPSULE.DR PO (13:41)
[2024-02-05] MEDS: Albuterol Sulfate 90 MCG 8 GM INHALER 2 PUFF INHALE ×2 (13:47→16:22)
[2024-02-05 14:24] VITALS: BP 134/91; PULSE 87; RESP 15; TEMP 36.8; O2SAT 100
[2024-02-05 14:36] VITALS: BMI 43.8
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
[2024-02-05] MEDS: Meclizine HCl 25 MG TABLET PO (16:07)
[2024-02-05] MEDS: Cyclobenzaprine HCl 10 MG TABLET PO (16:07)
[2024-02-05] MEDS: Fluticasone/Vilanterol 100/25 BLST.W.DEV 1 PUFF INHALE (16:22)
[2024-02-05] MEDS: Ziprasidone 80 MG CAPSULE PO (17:59)
[2024-02-05] MEDS: hydrOXYzine HCL 50 MG TABLET PO (18:57)
--- NOTE | 2024-02-05 18:58 | PC.NURSE ---
Pt c/o having a difficult time breathing and swelling in the throat. This health underwriter looked in pt.'s throat and was unable to see any obstructions. This health underwriter also listened to her lungs and they were clear BL. O2 saturation was 98% at the time of the complaint. This health underwriter reached out to Dr. Ortiz via [employer], and they agreed together to provide her with Atarax 50mg. Pt accepted this medication.
[2024-02-05 20:00] VITALS: BP 142/78; PULSE 96; RESP 14; TEMP 36.2; O2SAT 97
[2024-02-05] MEDS: Tiotropium Bromide 2.5 mcg 1 PUFF/2.5 MCG MIST.INHAL 2 PUFF INHALE (21:23)
[2024-02-05] MEDS: Topiramate 25 MG TABLET 50 MG PO (21:24)
[2024-02-05] MEDS: Atorvastatin Calcium 10 MG TABLET PO (21:24)
[2024-02-06] MEDS: Albuterol Sulfate 90 MCG 8 GM INHALER 2 PUFF INHALE ×4 (05:06→21:37)
[2024-02-06 05:12] VITALS: BP 131/87; PULSE 107; RESP 16; TEMP 36.4; O2SAT 97
[2024-02-06] MEDS: Omeprazole 20 MG CAPSULE.DR PO (05:17)
[2024-02-06 07:58] VITALS: BP 102/48; PULSE 99; RESP 16; TEMP 36.8; O2SAT 96
[2024-02-06 08:51] VITALS: BP 170/94; PULSE 105
[2024-02-06] MEDS: amLODIPine Besylate 5 MG TABLET PO (08:54)
[2024-02-06] MEDS: Fluticasone/Vilanterol 100/25 BLST.W.DEV 1 PUFF INHALE (08:55)
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
[2024-02-06] MEDS: Montelukast Sodium 10 MG TABLET PO (09:05)
[2024-02-06] MEDS: busPIRone HCl 10 MG TABLET 30 MG PO ×2 (09:05→21:38)
[2024-02-06] MEDS: Ziprasidone 80 MG CAPSULE PO ×2 (09:05→16:48)
[2024-02-06] MEDS: Fluticasone Propionate Nasal 16 GM SPRAY 1 SPRAY NOSTRIL-B (09:05)
[2024-02-06] MEDS: Acetaminophen 325 MG TABLET 650 MG PO (09:50)
[2024-02-06 10:07] VITALS: BP 157/93; PULSE 105
[2024-02-06] MEDS: hydrOXYzine HCL 50 MG TABLET PO ×2 (13:17→18:15)
[2024-02-06 20:00] VITALS: BP 125/71; PULSE 97; RESP 16; TEMP 36.4; O2SAT 95
[2024-02-06] MEDS: Tiotropium Bromide 2.5 mcg 1 PUFF/2.5 MCG MIST.INHAL 2 PUFF INHALE (21:37)
[2024-02-06] MEDS: Cyclobenzaprine HCl 10 MG TABLET PO (21:38)
[2024-02-06] MEDS: Topiramate 25 MG TABLET 50 MG PO (21:38)
[2024-02-06] MEDS: traZODone HCL 100 MG TABLET 200 MG PO (21:39)
[2024-02-06] MEDS: Atorvastatin Calcium 10 MG TABLET PO (21:39)
[2024-02-07] MEDS: Albuterol Sulfate 90 MCG 8 GM INHALER 2 PUFF INHALE ×3 (04:46→13:45)
[2024-02-07] MEDS: Omeprazole 20 MG CAPSULE.DR PO (06:09)
[2024-02-07] MEDS: hydrOXYzine HCL 50 MG TABLET PO ×4 (06:09→21:52)
[2024-02-07] MEDS: Acetaminophen 325 MG TABLET 650 MG PO (07:49)
[2024-02-07] MEDS: Magnesium Hydrox/Alum Hydrox 30 ML ORAL.SUSP PO (07:49)
[2024-02-07 08:00] VITALS: BP 134/79; PULSE 95; RESP 14; TEMP 36.4; O2SAT 97
[2024-02-07] MEDS: busPIRone HCl 10 MG TABLET 30 MG PO ×2 (08:13→21:51)
[2024-02-07] MEDS: amLODIPine Besylate 5 MG TABLET PO (08:13)
[2024-02-07] MEDS: Montelukast Sodium 10 MG TABLET PO (08:14)
--- NOTE | 2024-02-07 08:18 | P.PNPSI_ITS ---
Subjective Subjective Date of Service: 02/07/24 Reason For Visit: psychosis Subjective Notes: Section 12B Healthcare Proxy: No Guardianship: No Medical Problems Affecting Mental Status: Yes (side pain - ) Interim History: 38 yo reports doing ok - taking home meds again- but not sleeping great- discussed teaking night meds to address - though when reviewed is on highest dose of geodon/trazodone at night can be- Pt did mention trying melatonin at home 20mg so we decided to add that back in as well (not 20mg! though) Pt speech is vague and disorganized but not so much she can't communicate somatically focused requesting prns for seasonal allergies , various aches and pains- Medication Compliance: Yes (now that she is inpatient- ) Side effects from medications: No Attending Groups: Intermittent Review of Systems Acute medical concerns: No Medical Review of Systems: unchanged Mental Status Exam Mental Status Exam Patient Appearance: Disheveled Patient Orientation: Person, Place and Situation Level of Consciousness: Awake Patient Behavior: Cooperative and Distractible Mood Description: Apprehensive Affect Description: Blunted Ability to Follow Directions: Fair Speech Pattern: Clear and Impoverished Thought Process: Distracted Depressive Symptoms: Muscle Pain and Difficulty Concentrating Abnormal Motor Activity Signs and Symptoms: Restlessness Judgement: Fair Diagnostics Vital Signs (24Hr): Vital Signs - 24 hr 02/06/24 08:51 02/06/24 10:07 02/06/24 20:00 Temperature 97.6 F Pulse Rate 105 H 105 H 97 Respiratory Rate 16 Blood Pressure 170/94 H 157/93 H 125/71 Pulse Oximetry 95 Oxygen Delivery Method Room Air 02/07/24 08:00 Temperature 97.6 F Pulse Rate 95 Respiratory Rate 14 Blood Pressure 134/79 Pulse Oximetry 97 Oxygen Delivery Method Room Air BMI result Body Mass Index 43.8 Medications Medications Current Medications Acetaminophen (Acetaminophen 325 Mg Tablet) 650 mg PO Q8H PRN PRN Reason: pain Last Admin: 02/07/24 07:49 Dose: 650 mg Al Hydroxide/Mg Hydroxide (Magnesium Hydrox/Alum Hydrox 30 Ml Oral.Susp) 30 ml PO Q6H PRN PRN Reason: Heartburn/Nausea Last Admin: 02/07/24 07:49 Dose: 30 ml Albuterol Sulfate (Albuterol Sulfate 90 Mcg 8 Gm Inhaler) 2 puff INHALE Q4H PRN PRN Reason: bronchospasm Last Admin: 02/07/24 04:46 Dose: 2 puff Albuterol Sulfate (Albuterol Sulfate 90 Mcg 8 Gm Inhaler) 2 puff INHALE RQ4H PRN PRN Reason: Shortness of Breath Amlodipine Besylate (Amlodipine Besylate 5 Mg Tablet) 5 mg PO DAILY [facility]; Protocol Last Admin: 02/07/24 08:13 Dose: 5 mg Atorvastatin Calcium (Atorvastatin Calcium 10 Mg Tablet) 10 mg PO BEDTIME [facility] Last Admin: 02/06/24 21:39 Dose: 10 mg Buspirone HCl (Buspirone Hcl 10 Mg Tablet) 30 mg PO BID [facility] Last Admin: 02/07/24 08:13 Dose: 30 mg Cyclobenzaprine HCl (Cyclobenzaprine Hcl 10 Mg Tablet) 10 mg PO TID PRN PRN Reason: muscle spasm Last Admin: 02/06/24 21:38 Dose: 10 mg Fluticasone Propionate (Fluticasone Propionate Nasal 16 Gm [place]) 1 spray NOSTRIL-B DAILY [facility] Last Admin: 02/07/24 08:18 Dose: Not Given Fluticasone/Vilanterol (Fluticasone/Vilanterol 100/25 Blst.W.Dev) 1 puff INHALE RDAILY [facility] Last Admin: 02/07/24 08:18 Dose: Not Given Hydroxyzine HCl (Hydroxyzine Hcl 50 Mg Tablet) 50 mg PO Q4H PRN PRN Reason: Anxiety, allergies Last Admin: 02/07/24 06:09 Dose: 50 mg Magnesium Hydroxide (Milk Of Magnesia 30 Ml Oral.Susp) 30 ml PO DAILY PRN PRN Reason: Constipation Meclizine HCl (Meclizine Hcl 25 Mg Tablet) 25 mg PO DAILY PRN PRN Reason: for motion sickness Last Admin: 02/05/24 16:07 Dose: 25 mg Montelukast Sodium (Montelukast Sodium 10 Mg Tablet) 10 mg PO DAILY [facility] Last Admin: 02/07/24 08:14 Dose: 10 mg Nicotine Polacrilex (Nicotine Polacrilex 2 Mg Gum) 4 mg BUCCAL Q2H PRN PRN Reason: Nicotine Cravings Omeprazole (Omeprazole 20 Mg Capsule.Dr) 20 mg PO DAILY@0630 [facility] Last Admin: 02/07/24 06:09 Dose: 20 mg Ondansetron HCl (Ondansetron Odt 4 Mg Tab.Rapdis) 4 mg TRANSLINGU DAILY PRN PRN Reason: nausea and vomiting Tiotropium [place] (Tiotropium [place] 2.5 Mcg 1 Puff/2.5 Mcg Mist.Inhal) 2 puff INHALE BEDTIME [facility] Last Admin: 02/06/24 21:37 Dose: 2 puff Topiramate (Topiramate 25 Mg Tablet) 50 mg PO BEDTIME NATALIA Last Admin: 02/06/24 21:38 Dose: 50 mg Trazodone HCl (Trazodone Hcl 100 Mg Tablet) 200 mg PO BEDTIME PRN PRN Reason: Insomnia Last Admin: 02/06/24 21:39 Dose: 200 mg Ziprasidone (Ziprasidone 80 Mg Capsule) 80 mg PO BIDWM [facility] Last Admin: 02/06/24 16:48 Dose: 80 mg Allergies Allergies Allergy/AdvReac Type Severity Reaction Status Date / Time animal dander [PET DANDER] Allergy Unknown ITCHING Verified 02/04/24 20:09 bee pollen [BEE STINGS] Allergy Unknown SWELLING Verified 02/04/24 20:09 house dust Allergy Unknown Unknown Verified 02/04/24 20:09 shellfish derived Allergy Unknown SWELLING Verified 02/04/24 20:09 [SHELLFISH DERIVED] SEASONAL ALLERGIES Allergy Unknown ITCHING Uncoded 02/04/24 20:09 Assessment & Plan Assessment & Plan (1) Acute psychosis: Status: Acute Code(s): F23 - Brief psychotic disorder (2) Nicotine dependence: Status: Acute Code(s): F17.200 - Nicotine dependence, unspecified, uncomplicated (3) PTSD (post-traumatic stress disorder): Status: Acute Code(s): F43.10 - Post-traumatic stress disorder, unspecified Plan continue home medications for now. consult meds list brought in by for any need to modify regimen. consult with [facility] to verify med list as needed. interested in VNA at discharge to ensure medication compliance outside the hospital. 02/06 CTP add in melatonin Patient educated on: medication risk/benefits Informed Consent: understands Reason for continued inpatient stay Substantial Risk for: rapid decompensation Time Spent With Patient Time: Total time managing care of this patient today ____ minutes.
[2024-02-07] MEDS: Fluticasone/Vilanterol 100/25 BLST.W.DEV 1 PUFF INHALE (08:35)
[2024-02-07] MEDS: Fluticasone Propionate Nasal 16 GM SPRAY 1 SPRAY NOSTRIL-B (08:35)
[2024-02-07] MEDS: Ziprasidone 80 MG CAPSULE PO ×2 (09:29→18:07)
[2024-02-07] MEDS: Cyclobenzaprine HCl 10 MG TABLET PO ×2 (10:06→21:49)
[2024-02-07] MEDS: Meclizine HCl 25 MG TABLET PO (13:31)
[2024-02-07 20:00] VITALS: BP 139/76; PULSE 97; RESP 16; TEMP 37.1; O2SAT 97
[2024-02-07] MEDS: Melatonin 3 MG TABLET 6 MG PO (21:50)
[2024-02-07] MEDS: traZODone HCL 100 MG TABLET 200 MG PO (21:51)
[2024-02-07] MEDS: Atorvastatin Calcium 10 MG TABLET PO (21:51)
[2024-02-07] MEDS: Topiramate 25 MG TABLET 50 MG PO (21:52)
[2024-02-07] MEDS: Tiotropium Bromide 2.5 mcg 1 PUFF/2.5 MCG MIST.INHAL 2 PUFF INHALE (21:53)
[2024-02-08] MEDS: Albuterol Sulfate 90 MCG 8 GM INHALER 2 PUFF INHALE ×2 (05:40→13:09)
[2024-02-08] MEDS: Acetaminophen 325 MG TABLET 650 MG PO (05:46)
[2024-02-08] MEDS: Omeprazole 20 MG CAPSULE.DR PO (06:03)
[2024-02-08 07:39] VITALS: BP 125/71; PULSE 89; RESP 16; TEMP 36.4; O2SAT 100
[2024-02-08] MEDS: Montelukast Sodium 10 MG TABLET PO (08:10)
[2024-02-08] MEDS: busPIRone HCl 10 MG TABLET 30 MG PO ×2 (08:10→20:36)
[2024-02-08] MEDS: Ziprasidone 80 MG CAPSULE PO (08:11)
[2024-02-08] MEDS: amLODIPine Besylate 5 MG TABLET PO (08:11)
[2024-02-08] MEDS: Fluticasone Propionate Nasal 16 GM SPRAY 1 SPRAY NOSTRIL-B (08:12)
[2024-02-08] MEDS: Fluticasone/Vilanterol 100/25 BLST.W.DEV 1 PUFF INHALE (08:16)
[2024-02-08] MEDS: Ibuprofen 400 MG TABLET PO ×2 (10:45→21:36)
--- NOTE | 2024-02-08 11:01 | P.PNPSI_ITS ---
Subjective Subjective Date of Service: 02/08/24 Reason For Visit: psychosis Subjective Notes: Section 12B Healthcare Proxy: No Guardianship: No Medical Problems Affecting Mental Status: No Interim History: 38 yo MF who is doing ok feeling a bit better, continues fairly somatic - but no specific complaints- Slept better with melatonin last pm - Discussed with pt she was on max traz/ziprasodone I could write- Pt continues to seems somewhat vague and disorganized but manages her engagement on unit and adls- Medication Compliance: Yes Side effects from medications: No Attending Groups: Intermittent Review of Systems Acute medical concerns: No Medical Review of Systems: unchanged Mental Status Exam Mental Status Exam Patient Appearance: Unkempt Patient Orientation: Person, Place, Time and Situation Level of Consciousness: Awake and Alert Patient Behavior: Cooperative, Passive and Good Eye Contact Mood Description: Apathetic Affect Description: Blunted Patient Cognition Impaired: No Ability to Follow Directions: Fair Speech Pattern: Clear Thought Process: Intact and Evasive (doesn't seem purposeful though) Thought Content: positive for Poverty of Content Depressive Symptoms: Muscle Tension Judgement: Fair Diagnostics Vital Signs (24Hr): Vital Signs - 24 hr 02/07/24 20:00 02/08/24 07:39 Temperature 98.7 F 97.5 F Pulse Rate 97 89 Respiratory Rate 16 16 Blood Pressure 139/76 125/71 Pulse Oximetry 97 100 Oxygen Delivery Method Room Air Room Air BMI result Body Mass Index 43.8 Medications Medications Current Medications Acetaminophen (Acetaminophen 325 Mg Tablet) 650 mg PO Q8H PRN PRN Reason: pain Last Admin: 02/08/24 05:46 Dose: 650 mg Al Hydroxide/Mg Hydroxide (Magnesium Hydrox/Alum Hydrox 30 Ml Oral.Susp) 30 ml PO Q6H PRN PRN Reason: Heartburn/Nausea Last Admin: 02/07/24 07:49 Dose: 30 ml Albuterol Sulfate (Albuterol Sulfate 90 Mcg 8 Gm Inhaler) 2 puff INHALE Q4H PRN PRN Reason: bronchospasm Last Admin: 02/08/24 05:40 Dose: 2 puff Albuterol Sulfate (Albuterol Sulfate 90 Mcg 8 Gm Inhaler) 2 puff INHALE RQ4H PRN PRN Reason: Shortness of Breath Amlodipine Besylate (Amlodipine Besylate 5 Mg Tablet) 5 mg PO DAILY NATALIA; Protocol Last Admin: 02/08/24 08:11 Dose: 5 mg Atorvastatin Calcium (Atorvastatin Calcium 10 Mg Tablet) 10 mg PO BEDTIME [facility] Last Admin: 02/07/24 21:51 Dose: 10 mg Buspirone HCl (Buspirone Hcl 10 Mg Tablet) 30 mg PO BID [facility] Last Admin: 02/08/24 08:10 Dose: 30 mg Cyclobenzaprine HCl (Cyclobenzaprine Hcl 10 Mg Tablet) 10 mg PO TID PRN PRN Reason: muscle spasm Last Admin: 02/07/24 21:49 Dose: 10 mg Fluticasone Propionate (Fluticasone Propionate Nasal 16 Gm [place]) 1 spray NOSTRIL-B DAILY [facility] Last Admin: 02/08/24 08:12 Dose: 1 spray Fluticasone/Vilanterol (Fluticasone/Vilanterol 100/25 Blst.W.Dev) 1 puff INHALE RDAILY [facility] Last Admin: 02/08/24 08:16 Dose: 1 puff Hydroxyzine HCl (Hydroxyzine Hcl 50 Mg Tablet) 50 mg PO Q4H PRN PRN Reason: Anxiety, allergies Last Admin: 02/07/24 21:52 Dose: 50 mg Ibuprofen (Ibuprofen 400 Mg Tablet) 400 mg PO Q6H PRN PRN Reason: moderate pain Last Admin: 02/08/24 10:45 Dose: 400 mg Magnesium Hydroxide (Milk Of Magnesia 30 Ml Oral.Susp) 30 ml PO DAILY PRN PRN Reason: Constipation Meclizine HCl (Meclizine Hcl 25 Mg Tablet) 25 mg PO DAILY PRN PRN Reason: for motion sickness Last Admin: 02/07/24 13:31 Dose: 25 mg Melatonin (Melatonin 3 Mg Tablet) 6 mg PO BEDTIME [facility] Last Admin: 02/07/24 21:50 Dose: 6 mg Montelukast Sodium (Montelukast Sodium 10 Mg Tablet) 10 mg PO DAILY [facility] Last Admin: 02/08/24 08:10 Dose: 10 mg Nicotine Polacrilex (Nicotine Polacrilex 2 Mg Gum) 4 mg BUCCAL Q2H PRN PRN Reason: Nicotine Cravings Omeprazole (Omeprazole 20 Mg Capsule.Dr) 20 mg PO DAILY@0630 [facility] Last Admin: 02/08/24 06:03 Dose: 20 mg Ondansetron HCl (Ondansetron Odt 4 Mg Tab.Rapdis) 4 mg TRANSLINGU DAILY PRN PRN Reason: nausea and vomiting Tiotropium [place] (Tiotropium [place] 2.5 Mcg 1 Puff/2.5 Mcg Mist.Inhal) 2 puff INHALE BEDTIME [facility] Last Admin: 02/07/24 21:53 Dose: 2 puff Topiramate (Topiramate 25 Mg Tablet) 50 mg PO BEDTIME [facility] Last Admin: 02/07/24 21:52 Dose: 50 mg Trazodone HCl (Trazodone Hcl 100 Mg Tablet) 200 mg PO BEDTIME PRN PRN Reason: Insomnia Last Admin: 02/07/24 21:51 Dose: 200 mg Ziprasidone (Ziprasidone 80 Mg Capsule) 80 mg PO BIDWM [facility] Last Admin: 02/08/24 08:11 Dose: 80 mg Allergies Allergies Allergy/AdvReac Type Severity Reaction Status Date / Time animal dander [PET DANDER] Allergy Unknown ITCHING Verified 02/04/24 20:09 bee pollen [BEE STINGS] Allergy Unknown SWELLING Verified 02/04/24 20:09 house dust Allergy Unknown Unknown Verified 02/04/24 20:09 shellfish derived Allergy Unknown SWELLING Verified 02/04/24 20:09 [SHELLFISH DERIVED] SEASONAL ALLERGIES Allergy Unknown ITCHING Uncoded 02/04/24 20:09 Assessment & Plan Assessment & Plan (1) Acute psychosis: Status: Acute Code(s): F23 - Brief psychotic disorder (2) Nicotine dependence: Status: Acute Code(s): F17.200 - Nicotine dependence, unspecified, uncomplicated (3) PTSD (post-traumatic stress disorder): Status: Acute Code(s): F43.10 - Post-traumatic stress disorder, unspecified Plan continue home medications for now. consult meds list brought in by for any need to modify regimen. consult with [facility] to verify med list as needed. interested in VNA at discharge to ensure medication compliance outside the hospital. 02/06 CTP add in melatonin 02/07 CTP Patient educated on: medication risk/benefits Informed Consent: understands Reason for continued inpatient stay Substantial Risk for: rapid decompensation Time Spent With Patient Time: Total time managing care of this patient today ____ minutes.
--- NOTE | 2024-02-08 17:54 | PC.NURSE ---
RN attempted to offer pt her Geodon at 1700 with a snack, pt declined and said I'll take it when dinner gets here. RN attempted to offer her Geodon at 1750 when dinner arrived but pt refused.
[2024-02-08 20:02] VITALS: RESP 16
[2024-02-08] MEDS: Melatonin 3 MG TABLET 6 MG PO (20:36)
[2024-02-08] MEDS: hydrOXYzine HCL 50 MG TABLET PO (20:37)
[2024-02-08] MEDS: Topiramate 25 MG TABLET 50 MG PO (20:37)
[2024-02-08] MEDS: traZODone HCL 100 MG TABLET 200 MG PO (20:37)
[2024-02-08] MEDS: Atorvastatin Calcium 10 MG TABLET PO (20:37)
[2024-02-08] MEDS: Tiotropium Bromide 2.5 mcg 1 PUFF/2.5 MCG MIST.INHAL 2 PUFF INHALE (20:38)
[2024-02-09] MEDS: Albuterol Sulfate 90 MCG 8 GM INHALER 2 PUFF INHALE ×4 (01:02→17:22)
[2024-02-09] MEDS: Acetaminophen 325 MG TABLET 650 MG PO ×2 (06:49→15:12)
[2024-02-09] MEDS: Omeprazole 20 MG CAPSULE.DR PO (06:49)
[2024-02-09 07:27] VITALS: BP 132/75; PULSE 91; RESP 16; TEMP 36.5; O2SAT 100
[2024-02-09] MEDS: Fluticasone/Vilanterol 100/25 BLST.W.DEV 1 PUFF INHALE (08:00)
[2024-02-09] MEDS: busPIRone HCl 10 MG TABLET 30 MG PO ×2 (08:01→22:58)
[2024-02-09] MEDS: Montelukast Sodium 10 MG TABLET PO (08:02)
[2024-02-09] MEDS: Ziprasidone 80 MG CAPSULE PO ×2 (08:02→17:18)
[2024-02-09] MEDS: Loratadine 10 MG TABLET PO (08:02)
[2024-02-09] MEDS: amLODIPine Besylate 5 MG TABLET PO (08:02)
[2024-02-09] MEDS: Cyclobenzaprine HCl 10 MG TABLET PO (09:03)
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
[2024-02-09] MEDS: hydrOXYzine HCL 50 MG TABLET PO ×2 (17:22→22:58)
[2024-02-09 20:20] VITALS: RESP 18
[2024-02-09] MEDS: Topiramate 25 MG TABLET 50 MG PO (22:58)
[2024-02-09] MEDS: Melatonin 3 MG TABLET 6 MG PO (22:58)
[2024-02-09] MEDS: traZODone HCL 100 MG TABLET 200 MG PO (22:58)
[2024-02-09] MEDS: Atorvastatin Calcium 10 MG TABLET PO (22:58)
[2024-02-09] MEDS: Tiotropium Bromide 2.5 mcg 1 PUFF/2.5 MCG MIST.INHAL 2 PUFF INHALE (23:00)
[2024-02-10] MEDS: Albuterol Sulfate 90 MCG 8 GM INHALER 2 PUFF INHALE ×2 (02:55→09:32)
[2024-02-10] MEDS: hydrOXYzine HCL 50 MG TABLET PO ×2 (03:46→09:09)
[2024-02-10] MEDS: Acetaminophen 325 MG TABLET 650 MG PO (03:55)
[2024-02-10] MEDS: Omeprazole 20 MG CAPSULE.DR PO (06:28)
[2024-02-10] MEDS: Ibuprofen 400 MG TABLET PO (06:38)
[2024-02-10 07:47] VITALS: BP 129/73; PULSE 89; RESP 16; TEMP 36.8; O2SAT 98
[2024-02-10] MEDS: Fluticasone/Vilanterol 100/25 BLST.W.DEV 1 PUFF INHALE (08:27)
[2024-02-10] MEDS: Ziprasidone 80 MG CAPSULE PO (09:03)
[2024-02-10] MEDS: Loratadine 10 MG TABLET PO (09:04)
[2024-02-10] MEDS: Montelukast Sodium 10 MG TABLET PO (09:04)
[2024-02-10 09:05] VITALS: BP 138/84
[2024-02-10] MEDS: amLODIPine Besylate 5 MG TABLET PO (09:05)
[2024-02-10] MEDS: busPIRone HCl 10 MG TABLET 30 MG PO (09:19)
== END 2024-02-10 10:10 | disposition home or self-care (01) | DRG 885 ==
LOC: HO.ED 02-05 00:37 → HO.PADLT16 02-05 11:38
PROVIDERS: Emergency Medicine; Admitting Provider Psychiatry & Neurology Psychiatry; Emergency Provider Internal Medicine; Visit Provider Psychiatry & Neurology Psychiatry
DX: F31.9 Bipolar disorder, unspecified (principal); F17.210 Nicotine dependence, cigarettes, uncomplicated; F43.12 Post-traumatic stress disorder, chronic; J45.909 Unspecified asthma, uncomplicated; Z71.6 Tobacco abuse counseling; Z62.810 Personal history of physical and sexual abuse in childhood; Z79.51 Long term (current) use of inhaled steroids; Z79.899 Other long term (current) drug therapy
CPT/HCPCS: 80307; 81001; 81025; 87086; 99285; J1630; J2060; S9485

== ENCOUNTER → 2024-02-05 11:22 | Outpatient (BNV) | payer OTHER, SELFPAY | PROVIDERS: Admitting Provider Psychiatry & Neurology Psychiatry; Emergency Provider Internal Medicine; Visit Provider Psychiatry & Neurology Psychiatry | DX: F23 Brief psychotic disorder (principal); F43.11 Post-traumatic stress disorder, acute; F17.200 Nicotine dependence, unspecified, uncomplicated | CPT/HCPCS: 90792; 99231; 99239 ==

== ENCOUNTER 2024-04-11 09:37 | Emergency (ER) | payer OTHER, SELFPAY ==
--- NOTE | ~2024-04-11 | XR_ITS ---
EXAMINATION: XR CHEST CLINICAL INFORMATION: cough COMPARISON: Chest radiograph 11/01/2021. TECHNIQUE: 2 views of the chest were obtained. FINDINGS: The lungs are adequately expanded. Subtle focal opacity in the left lung base. The right lung appears clear. No pleural effusions or pneumothorax. The cardiomediastinal silhouette is within normal limits. Degenerative changes of thoracic spine. No acute osseous abnormality. XR/XR chest 2V IMPRESSION: Subtle focal opacity in the left lung base may represent atelectasis or infiltrate. Electronically signed by: Willian Milian MD 04/11/2024 11:54 AM [facility]
[2024-04-11 09:40] VITALS: BP 160/90; PULSE 103; O2SAT 99
[2024-04-11 09:48] VITALS: BP 146/78; PULSE 90; RESP 18; TEMP 37.2; O2SAT 98; BMI 33.8
[2024-04-11 10:03] VITALS: BP 146/78; PULSE 90; RESP 19; TEMP 37.2; O2SAT 98
--- NOTE | 2024-04-11 10:33 | ED_ITS ---
HPI - URI/Sore Throat General Chief Complaint: Upper Respiratory Symptoms Stated Complaint: fever/cough x 7 days Time Seen by Provider: 04/11/24 09:57 Source: patient Mode of arrival: ambulatory Limitations: no limitations History of Present Illness ED Provider: Dr. Edward Harvey HPI Narrative: 38-year-old female with a history of asthma, COPD, fatty liver who presents emergency department for evaluation of shortness of breath, cough, fever and chills. The patient states she has been sick for 1 month. She states she has had fever chills and sweats every day. She states she was had a cough which is mainly productive of thick sputum but occasionally productive of blood. She states that since last night she has been feeling short of breath and having dyspnea on exertion. The patient did use her albuterol inhaler with some relief for symptoms but felt worse today so she came to the emergency department for evaluation. She denied chest pain. She denied vomiting but states she has nausea and diarrhea. She was not been on antibiotics recently. The patient continues to smoke 1-1/2 packs of cigarettes per day times 19 years. Related Data Home Medications ?Medication ?Instructions ?Recorded ?Confirmed trazodone 100 mg tablet 200 mg PO BEDTIME PRN Insomnia 01/07/24 02/05/24 umeclidinium 62.5 mcg/actuation 1 inh inhalation BEDTIME 01/07/24 02/05/24 blister powder for inhalation (Incruse Ellipta) ziprasidone HCl 80 mg capsule 80 mg PO BIDWM 01/07/24 02/04/24 hydroxyzine pamoate 50 mg capsule 50 mg PO Q4H PRN Anxiety 02/05/24 02/05/24 nabumetone 750 mg tablet 750 mg PO TID PRN Breakthrough 02/05/24 02/05/24 Pain, Moderate pantoprazole 40 mg tablet,delayed 40 mg PO DAILY@0630 02/05/24 02/05/24 release Previous Rx's ?Medication ?Instructions ?Recorded topiramate 50 mg tablet 50 mg PO BEDTIME #30 tabs 06/27/23 meclizine 25 mg tablet 25 mg PO DAILY PRN for motion 09/15/23 sickness #90 tabs cyclobenzaprine 10 mg tablet 10 mg PO TID PRN muscle spasm 30 11/02/23 days #90 tabs albuterol sulfate 90 mcg/actuation 2 puff PO Q4H PRN bronchospasm 30 11/17/23 aerosol inhaler (Ventolin HFA) days #18 grams fluticasone propionate 50 1 spray intranasal DAILY 30 days 11/17/23 mcg/actuation nasal #16 grams spray,suspension (Flonase Allergy Relief) amlodipine 5 mg tablet 5 mg PO DAILY #30 tabs 01/13/24 atorvastatin 10 mg tablet 10 mg PO BEDTIME 90 days #90 tabs 01/13/24 buspirone 30 mg tablet 30 mg PO BID 90 days #180 tabs 01/13/24 omeprazole 20 mg capsule,delayed 20 mg PO DAILY@0630 90 days #90 01/13/24 release caps cetirizine 10 mg tablet (All Day 10 mg PO DAILY PRN allergy 03/02/24 Allergy (cetirizine)) symptoms 90 days #90 tabs acetaminophen 650 mg 650 mg PO Q8H PRN pain 30 days #90 03/12/24 tablet,extended release tabs fluticasone propionate 115 2 puff inhalation BID 30 days #12 04/07/24 mcg-salmeterol 21 mcg/actuation grams HFA inhaler (Advair HFA) amoxicillin 500 mg capsule 1,000 mg (2 x 500 mg) PO TID 5 04/11/24 days #30 caps doxycycline hyclate 100 mg tablet 100 mg PO Q12H 5 days #10 tabs 04/11/24 prednisone 20 mg tablet 60 mg (3 x 20 mg) PO DAILY 5 days 04/11/24 #15 tabs Allergies Allergy/AdvReac Type Severity Reaction Status Date / Time animal dander [PET DANDER] Allergy Unknown ITCHING Verified 04/11/24 09:49 bee pollen [BEE STINGS] Allergy Unknown SWELLING Verified 04/11/24 09:49 house dust Allergy Unknown Unknown Verified 04/11/24 09:49 shellfish derived Allergy Unknown SWELLING Verified 04/11/24 09:49 [SHELLFISH DERIVED] SEASONAL ALLERGIES Allergy Unknown ITCHING Uncoded 04/11/24 09:49 [facility] Past Medical History [facility] Narrative: Social history: She does smoke 1.5 packs of cigarettes per day times 19 years. She denies alcohol use. She takes CBD gummies but denies other drug use. Medical History Severe asthma with allergic rhinitis Allergic rhinitis Vertigo Surgical History No pertinent past surgical history Family History Family History Father Lung cancer CVD (cardiovascular disease) Mother Past heart attack Diabetes Emphysema lung CVD (cardiovascular disease) Family/Other FH: mental illness Maternal Grandmother No problems noted. Paternal Grandmother No problems noted. Social History Social History Household Members: Children and Friend(s) Housing: Apartment Do you presently have visiting nurse or other home services: No Alcohol intake: never Patient Tobacco Use Status: Former Tobacco user Tobacco use type: Cigarette Cigarette Packs Per Day: 1 e-Cigarette/Vaping Use: Never Used Second Hand Smoke Exposure: No Substance Use Type: Marijuana Advance Directives: No Advance Directives Information Provided: Yes Do you have a plan to hurt others: No Plan service: No Current occupational status: unemployed Sexual orientation: Straight/Heterosexual Cognitive needs: No Hearing needs: No Vision needs: No Physical Exam Vital Signs: Vital Signs: Last Vital Signs Temp 98.9 F 04/11/24 10:03 Pulse 90 04/11/24 10:03 Resp 19 04/11/24 10:03 BP 146/78 H 04/11/24 10:03 Pulse Ox 98 04/11/24 10:03 O2 Del Method Room Air 04/11/24 10:03 BMI result Body Mass Index 33.8 Vital signs revealed an elevated blood pressure otherwise were unremarkable Exam: General: Awake, alert in no distress Head: Normocephalic, atraumatic EENT: PERRL, Lids normal, sclera normal, conjunctiva normal, nose normal , ears normal, throat without erythema or exudates Neck: Supple, no adenopathy Lung: breath sounds symmetric patient does have wheezing at the end of expiration, no rales or rhonchi. Chest: symmetric movement, nontender Heart: regular rate and rhythm, normal S1, S2 no murmurs or rubs Abdomen: soft, non-tender, nondistended, normal bowel sounds Back: no vertebral tenderness, no CVAT Extremities: no deformities, moves all extremities symmetrically Neuro: Awake, alert, oriented, normal speech, cranial nerves intact, moves all extremities symmetrically Psych: Pleasant, cooperative Medical Decision Making Medical Decision Making MDM Narrative: 38-year-old female with a history of asthma, COPD, fatty liver, continued tobacco use disorder who presents emergency department for evaluation of productive cough with occasional hemoptysis, daily fever and chills x1 month with shortness of breath and dyspnea on exertion since last night. Vital signs revealed an elevated blood pressure otherwise unremarkable. Lung exam did reveal wheezing at the end of expiration otherwise unremarkable. Differential diagnosis: ?Includes but is not limited to bronchitis, pneumonia, COPD exacerbation, viral URI, COVID-19, influenza Course: :19 Patient's chest x-ray on my interpretation was unremarkable. The patient's COVID-19, influenza and RSV were negative. Presentation is concerning for acute bronchitis versus pneumonia. Patient 60 mg orally here in the emergency department. She was prescribed prednisone 60 mg daily for 5 days, amoxicillin 1000 mg 3 times a day for 5 days and doxycycline 1 g twice a day for 5 days. She was given printed and verbal instructions discharged home. Admission/Observation Consideration of admission/observation: Escalation of care including admission/observation considered (Yes) Lab Data MDM Lab Attestation statement: I reviewed the patient's lab results. My interpretation patient's laboratory evaluation is as follows: RSV, COVID, influenza were negative Labs: Lab Results 04/11/24 Range/Units 10:06 Influenza Type A (PCR) NEGATIVE (Negative) Influenza Type B (PCR) NEGATIVE (Negative) RSV RNA Qual (PCR) NEGATIVE (Negative) SARS-CoV-2 RNA (RT-PCR) NEGATIVE (Negative) Independent Interpretation I performed an independent interpretation of an: Plain X-Ray Interpretation: My interpretation patient's two view chest x-ray is as follows: No acute infiltrates noted Prescription Management I considered prescription management with: Other (Anti-inflammatory steroids: Prednisone, antibiotics: Amoxicillin, doxycycline) Chronic Conditions Patient?s care impacted by: Other (COPD, tobacco use disorder) Discharge Plan Discharge Clinical Impression: Bronchitis, Acute exacerbation of chronic obstructive pulmonary disease Patient Disposition: Home, Self-Care Additional Instructions: Your chest x-ray did not reveal a significant pneumonia on my interpretation of these studies Your COVID-19, influenza and RSV were negative. Take amoxicillin 500 mg pills, 2 pills, every 6 hours (3 times a day) for 5 days. Take doxycycline 100 mg, 1 pill every 12 hours for 7 days Take prednisone 20 mg pills, 3 pills once a day for 5 days. While you ?are taking prednisone, do not take any NSAIDs (Motrin, Advil, ibuprofen, Aleve, naproxen). Follow-up with your doctor in 2 days. Please return to the emergency department if your symptoms get worse or if you develop any symptoms that are concerning to you. Prescriptions: New amoxicillin 500 mg capsule 1,000 mg PO TID 5 Days Qty: 30 0RF prednisone 20 mg tablet 60 mg PO DAILY 5 Days Qty: 15 0RF doxycycline hyclate 100 mg tablet 100 mg PO Q12H 5 Days Qty: 10 0RF No Action topiramate 50 mg tablet 50 mg PO BEDTIME Qty: 30 6RF meclizine 25 mg tablet 25 mg PO DAILY PRN (Reason: for motion sickness) Qty: 90 2RF cyclobenzaprine 10 mg tablet 10 mg PO TID PRN (Reason: muscle spasm) 30 Days Qty: 90 3RF albuterol sulfate [Ventolin HFA] 90 mcg/actuation HFA aerosol inhaler 2 puff PO Q4H PRN (Reason: bronchospasm) 30 Days Qty: 18 5RF fluticasone propionate [Flonase Allergy Relief] 50 mcg/actuation spray,suspension 1 spray intranasal DAILY 30 Days Qty: 16 5RF Rx Instructions: administer into each nostril amlodipine 5 mg tablet 5 mg PO DAILY Qty: 30 0RF atorvastatin 10 mg tablet 10 mg PO BEDTIME 90 Days Qty: 90 1RF buspirone 30 mg tablet 30 mg PO BID 90 Days Qty: 180 1RF omeprazole 20 mg capsule,delayed release(DR/EC) 20 mg PO DAILY@0630 90 Days Qty: 90 0RF cetirizine [All Day Allergy (cetirizine)] 10 mg tablet 10 mg PO DAILY PRN (Reason: allergy symptoms) 90 Days Qty: 90 1RF acetaminophen 650 mg tablet extended release 650 mg PO Q8H PRN (Reason: pain) 30 Days Qty: 90 3RF fluticasone propion-salmeterol [Advair HFA] 115-21 mcg/actuation HFA aerosol inhaler 2 puff inhalation BID 30 Days Qty: 12 2RF nabumetone 750 mg tablet 750 mg PO TID PRN (Reason: Breakthrough Pain, Moderate) hydroxyzine pamoate 50 mg capsule 50 mg PO Q4H PRN (Reason: Anxiety) pantoprazole 40 mg tablet,delayed release (DR/EC) 40 mg PO DAILY@0630 ziprasidone HCl 80 mg capsule 80 mg PO BIDWM Rx Instructions: give with food (meal/snack) trazodone 100 mg tablet 200 mg PO BEDTIME PRN (Reason: Insomnia) Incruse Ellipta 62.5 mcg/actuation blister with device 1 inh INHALATION BEDTIME Print Language: Romanian
[2024-04-11 10:53] LABS: Influenza A PCR NEGATIVE (Negative); Influenza B PCR NEGATIVE (Negative); Resp Syncy Virus RNA Qual PCR NEGATIVE (Negative); SARS COV2 PCR INHOUSE NEGATIVE (Negative)
[2024-04-11] MEDS: predniSONE 20 MG TABLET 60 MG PO (11:15)
[2024-04-11 11:26] VITALS: BP 140/79; PULSE 87; RESP 18; TEMP 36.9; O2SAT 98
--- OUTSIDE RECORDS SUMMARY | 2024-04-14 12:04 | XMS_ITS ---
Author Name [facility] Organization Unknown Results Test Name/Text Value Interpretation Date Range Source Magnesium SerPl-mCnc 2.1mg/dL Normal [id number] 1.6 - 2.7 HHCCT Phosphate SerPl-mCnc 3.9mg/dL Normal [id number] 2.7 - 4.5 H[facility]CT Calcium SerPl-mCnc 9.4mg/dL Normal [id number] 8.7 - 10 .5 HHCCT BUN SerPl-mCnc 12mg/dL Normal [id number] 8 - 21 HH CCT Creat SerPl-mCnc 0.7mg/dL Normal [id number] 0.4 - 1.1 HHCCT GFR/BSA.pred SerPlBld KMM-GUX-WwRHmk 90 Normal [id number] 59 - HHCCT Chloride SerPl-sCnc 100mmol/L Normal [id number] 98 - 10 7 HHCCT BUN/Creat SerPl 17Ratio Normal [id number] 10 - 25 H HCCT CO2 SerPl-sCnc 22mmol/L Normal [id number] 22 - 33 HH CCT Anion Gap Bld-sCnc 13 Normal [id number] 7 - 17 HHCCT Potassium SerPl-sCnc 4mmol/L Normal [id number] 3.4 - 5.3 HHCCT Glucose SerPl-mCnc 109mg/dL Above high normal [id number] 65 - 99 HHCCT Sodium SerPl-sCnc 135mmol/L Below low normal [id number] 13 6 - 145 HHCCT RBC num Bld Auto 4.08Mil/uL Normal [id number] 4 - 5.4 HHCCT RDW RBC Auto-Rto 12.3% Normal [id number] 11.5 - 14. 5 HHCCT PMV Bld Auto 9.3fL Normal [id number] 7.5 - 12.[address] MCH RBC Qn Auto 29.2pg Normal [id number] 26 - 34 H HCCT WBC num Bld Auto 9.6Thou/uL Normal [id number] 4 - 11 HHCCT Platelet num Bld Auto 397Thou/uL Normal [id number] 150 - 450 HHCCT MCHC RBC Auto-mCnc 32g/dL Normal [id number] 30 - 36 HHCCT Hct VFr Bld Auto 37.2% Normal [id number] 35 - 47 HHCCT MCV RBC Auto 91fL Normal [id number] 80 - 100 HHCC T Hgb Bld-mCnc 11.9g/dL Normal [id number] 11.7 - 15.7 HH CCT POC Glucose 104mg/dL Above high normal [id number] 65 - 99 HHCCT Folate SerPl-mCnc 8.1ng/mL Normal [id number] 7.2 - HHCCT 25(OH)D3 SerPl-mCnc 12ng/mL Below low normal [id number] 30 - 100 HHCCT Magnesium SerPl-mCnc 2mg/dL Normal [id number] 1.6 - 2.7 HHCCT AST SerPl-cCnc 80U/L Above high normal [id number] 10 - 50 HHCCT ALT SerPl-cCnc 63U/L Above high normal [id number] 10 - 50 HHCCT Creat SerPl-mCnc 0.8mg/dL Normal [id number] 0.4 - 1.1 HHCCT Globulin Ser Calc-mCnc 3g/dL Normal [id number] 1.5 - 3.9 HHCCT CO2 SerPl-sCnc 24mmol/L Normal [id number] 22 - 33 HH CCT Albumin/Glob SerPl 1.3Ratio Normal [id number] 1 - 3 HHCCT Anion Gap Bld-sCnc 10 Normal [id number] 7 - 17 HHCCT Potassium SerPl-sCnc 4.1mmol/L Normal [id number] 3.4 - 5.3 HHCCT Bilirub SerPl-mCnc 0.5mg/dL Normal [id number] 0.2 - 1 HHCCT Calcium SerPl-mCnc 9.3mg/dL Normal [id number] 8.7 - 10 .5 HHCCT BUN SerPl-mCnc 10mg/dL Normal [id number] 8 - 21 HH CCT ALP SerPl-cCnc 114U/L Normal [id number] 32 - 122 HH CCT GFR/BSA.pred SerPlBld PRP-HPN-SyRKom 90 Normal [id number] 59 - HHCCT Chloride SerPl-sCnc 104mmol/L Normal [id number] 98 - 10 7 HHCCT BUN/Creat SerPl 13Ratio Normal [id number] 10 - 25 H HCCT Albumin SerPl-mCnc 4g/dL Normal [id number] 3.5 - 5 HHCCT Prot SerPl-mCnc 7g/dL Normal [id number] 6.3 - 8.3 H HCCT Glucose SerPl-mCnc 121mg/dL Above high normal [id number] 65 - 99 HHCCT Sodium SerPl-sCnc 138mmol/L Normal [id number] 136 - 145 HHCCT TSH SerPl DL<=0.005 mIU/L-aCnc 0.9mIU/L Normal [id number] 0.27 - 4.2 HHCCT Vit B12 SerPl-mCnc 186pg/mL Below low normal [id number] 2 43 - 894 HHCCT LDLc SerPl Calc-mCnc 97mg/dL Normal [id number] - 130 HHCCT Trigl SerPl-mCnc 172mg/dL Above high normal [id number] - 150 HHCCT HDLc SerPl-mCnc 30mg/dL Below low normal [id number] 39 - HHCCT Cholest SerPl-mCnc 161mg/dL Normal [id number] - 200 HHCCT HDLc SerPl 5.4Ratio Above high normal [id number] 0 - 5 HHCCT Hgb A1c MFr Bld 4.7% Normal [id number] - 5.7 H HCCT Est. average glucose Bld gHb Est-mCnc 88mg/dL Normal [id number] HHCCT RBC num Bld Auto 4.02Mil/uL Normal [id number] 4 - 5.4 HHCCT RDW RBC Auto-Rto 12.6% Normal [id number] 11.5 - 14. 5 HHCCT PMV Bld Auto 9.1fL Normal [id number] 7.5 - 12.[address] MCH RBC Qn Auto 29.6pg Normal [id number] 26 - 34 H HCCT WBC num Bld Auto 10.5Thou/uL Normal [id number] 4 - 11 HHCCT Platelet num Bld Auto 382Thou/uL Normal [id number] 150 - 450 HHCCT MCHC RBC Auto-mCnc 32.3g/dL Normal [id number] 30 - 36 HHCCT Hct VFr Bld Auto 36.8% Normal [id number] 35 - 47 HHCCT MCV RBC Auto 92fL Normal [id number] 80 - 100 HHCC T Hgb Bld-mCnc 11.9g/dL Normal [id number] 11.7 - 15.7 HH CCT AST SerPl-cCnc 100U/L Above high normal [id number] 10 - 50 HHCCT ALT SerPl-cCnc 52U/L Above high normal [id number] 10 - 50 HHCCT Creat SerPl-mCnc 0.8mg/dL Normal [id number] 0.4 - 1.1 HHCCT Globulin Ser Calc-mCnc 3.2g/dL Normal [id number] 1.5 - 3.9 HHCCT CO2 SerPl-sCnc 19mmol/L Below low normal [id number] 22 - 33 HHCCT Albumin/Glob SerPl 1.3Ratio Normal [id number] 1 - 3 HHCCT Anion Gap Bld-sCnc 16 Normal [id number] 7 - 17 HHCCT Potassium SerPl-sCnc 3.4mmol/L Normal [id number] 3.4 - 5.3 HHCCT Bilirub SerPl-mCnc 0.6mg/dL Normal [id number] 0.2 - 1 HHCCT Calcium SerPl-mCnc 9.4mg/dL Normal [id number] 8.7 - 10 .5 HHCCT BUN SerPl-mCnc 11mg/dL Normal [id number] 8 - 21 HH CCT ALP SerPl-cCnc 108U/L Normal [id number] 32 - 122 HH CCT GFR/BSA.pred SerPlBld JHI-MJD-FcSInp 90 Normal [id number] 59 - HHCCT Chloride SerPl-sCnc 104mmol/L Normal [id number] 98 - 10 7 HHCCT BUN/Creat SerPl 14Ratio Normal [id number] 10 - 25 H HCCT Albumin SerPl-mCnc 4.2g/dL Normal [id number] 3.5 - 5 HHCCT Prot SerPl-mCnc 7.4g/dL Normal [id number] 6.3 - 8.3 H HCCT Glucose SerPl-mCnc 163mg/dL Above high normal [id number] 65 - 99 HHCCT Sodium SerPl-sCnc 139mmol/L Normal [id number] 136 - 145 HHCCT Lactate SerPl-sCnc 1.8mmol/L Normal [id number] 0.5 - 1. 9 HHCCT Calcium SerPl-mCnc 9.2mg/dL Normal [id number] 8.7 - 10 .5 HHCCT BUN SerPl-mCnc 21mg/dL Normal [id number] 8 - 21 HH CCT Creat SerPl-mCnc 1mg/dL Normal [id number] 0.4 - 1.1 HHCCT GFR/BSA.pred SerPlBld LJH-FME-FsPUtd 73 Normal [id number] 59 - HHCCT Chloride SerPl-sCnc 106mmol/L Normal [id number] 98 - 10 7 HHCCT BUN/Creat SerPl 21Ratio Normal [id number] 10 - 25 H HCCT CO2 SerPl-sCnc 20mmol/L Below low normal [id number] 22 - 33 HHCCT Anion Gap Bld-sCnc 14 Normal [id number] 7 - 17 HHCCT Potassium SerPl-sCnc 2.8mmol/L Below low normal [id number] 3.4 - 5.3 HHCCT Glucose SerPl-mCnc 110mg/dL Above high normal [id number] 65 - 99 HHCCT Sodium SerPl-sCnc 140mmol/L Normal [id number] 136 - 145 HHCCT AST SerPl-cCnc 93U/L Above high normal [id number] 10 - 50 HHCCT ALP SerPl-cCnc 101U/L Normal [id number] 32 - 122 HH CCT ALT SerPl-cCnc 38U/L Normal [id number] 10 - 50 HH CCT Globulin Ser Calc-mCnc 3g/dL Normal [id number] 1.5 - 3.9 HHCCT Bilirub Direct SerPl-mCnc 0.2mg/dL Normal [id number] 0 - 0.2 HHCCT Albumin/Glob SerPl 1.4Ratio Normal [id number] 1 - 3 HHCCT Albumin SerPl-mCnc 4.1g/dL Normal [id number] 3.5 - 5 HHCCT Prot SerPl-mCnc 7.1g/dL Normal [id number] 6.3 - 8.3 H HCCT Bilirub SerPl-mCnc 0.5mg/dL Normal [id number] 0.2 - 1 HHCCT APAP SerPl-mCnc 5mg/L Below low normal [id number] 10 - 30 HHCCT RBC num Bld Auto 4.15Mil/uL Normal [id number] 4 - 5.4 HHCCT RDW RBC Auto-Rto 12.7% Normal [id number] 11.5 - 14. 5 HHCCT PMV Bld Auto 9.2fL Normal [id number] 7.5 - 12.[address] MCH RBC Qn Auto 29.6pg Normal [id number] 26 - 34 H HCCT WBC num Bld Auto 17.5Thou/uL Above high normal [id number] 4 - 11 HHCCT Platelet num Bld Auto 392Thou/uL Normal [id number] 150 - 450 HHCCT MCHC RBC Auto-mCnc 32.5g/dL Normal [id number] 30 - 36 HHCCT Hct VFr Bld Auto 37.9% Normal [id number] 35 - 47 HHCCT MCV RBC Auto 91fL Normal [id number] 80 - 100 HHCC T Hgb Bld-mCnc 12.3g/dL Normal [id number] 11.7 - 15.7 HH CCT Cannabinoids Ur Ql Scn>50 ng/mL Abnormal [id number] - [facility] - [facility] Tricyclics Ur Ql Scn [facility]normal - [facility] Opiates Ur Ql Scn>300 ng/mL Normal [id number] - HHCCT Barbiturates Ur Ql Scn>200 ng/mL Normal [id number] - CCT Benzodiaz Ur Ql Scn>200 ng/mL Normal [id number] - CCT Amphetamines Ur Ql Abnormal [id number] - HHCCT PCP Ur Ql Scn>25 ng/mL Normal [id number] - CCT fentaNYL+Norfentanyl Ur Ql Scn Normal [id number] - CCT Oxycodone Ur Ql Scn Normal - CCT Methadone Ur Ql Scn>300 ng/mL Normal - CCT Lactate SerPl-sCnc 2.6mmol/L Above high normal [id number] 0.5 - 1.9 HHCCT Salicylates SerPl-mCnc 1mg/dL Below low normal [id number] 15 - 30 HHCCT APAP SerPl-mCnc 33mg/L Above high normal [id number] 10 - 30 HHCCT RBC num/area UrnS HPF 1perhpf Normal [id number] 0 - 4 HHCCT WBC num/area UrnS HPF 2perhpf Normal [id number] 0 - 4 HHCCT Squamous num/area UrnS HPF 2PERHPF Normal [id number] HHCCT Ketones Ur Strip-mCnc Abnormal [id number] - HHCCT Prot Ur Strip-mCnc Abnormal [id number] - HHCCT Leukocyte esterase Ur Ql Strip Abnormal [id number] - HHCCT Color Ur Normal [id number] HHCCT pH Ur Strip 5 Normal [id number] 5 - 8 HHCCT Sp Gr Ur Strip 1.035 Above high normal [id number] 1.00 3 - 1.03 HHCCT Nitrite Ur Ql Strip Normal [id number] - HHCCT Glucose Ur Strip-mCnc 0mg/dL Normal [id number] 0 - 9 9 HHCCT Hgb Ur Ql Strip Normal [id number] - H HCCT Bilirub Ur Strip-mCnc Normal [id number] - HHCCT Clarity Ur Normal [id number] HHCCT Ethanol SerPl-mCnc 11mg/dL Normal [id number] - 11 HHCCT AST SerPl-cCnc 100U/L Above high normal [id number] 10 - 50 HHCCT ALP SerPl-cCnc 106U/L Normal [id number] 32 - 122 HH CCT ALT SerPl-cCnc 39U/L Normal 10 - 50 HH CCT Globulin Ser Calc-mCnc 3.2g/dL Normal 1.5 - 3.9 HHCCT Bilirub Direct SerPl-mCnc 0.2mg/dL Normal 0 - 0.2 HHCCT Albumin/Glob SerPl 1.4Ratio Normal [id number] 1 - 3 HHCCT Albumin SerPl-mCnc 4.4g/dL Normal 3.5 - 5 HHCCT Prot SerPl-mCnc 7.6g/dL Normal 6.3 - 8.3 H HCCT Bilirub SerPl-mCnc 0.5mg/dL Normal 0.2 - 1 HHCCT Calcium SerPl-mCnc 9.6mg/dL Normal 8.7 - 10 .5 HHCCT BUN SerPl-mCnc 25mg/dL Above high normal [id number] 8 - 21 HHCCT Creat SerPl-mCnc 1.2mg/dL Above high normal 0. 4 - 1.1 HHCCT GFR/BSA.pred SerPlBld YMX-THE-YkHIgo 59 Below low normal [id number] 59 - HHCCT Chloride SerPl-sCnc 105mmol/L Normal [id number] 98 - 10 7 HHCCT BUN/Creat SerPl 21Ratio Normal [id number] 10 - 25 H HCCT CO2 SerPl-sCnc 16mmol/L Below low normal [id number] 22 - 33 HHCCT Anion Gap Bld-sCnc 20 Above high normal [id number] 7 - 17 HHCCT Potassium SerPl-sCnc 3.2mmol/L Below low normal [id number] 3.4 - 5.3 HHCCT Glucose SerPl-mCnc 120mg/dL Above high normal [id number] 65 - 99 HHCCT Sodium SerPl-sCnc 141mmol/L Normal [id number] 136 - 145 HHCCT Magnesium SerPl-mCnc 1.8mg/dL Normal [id number] 1.6 - 2.7 HHCCT Imm Granulocytes/leuk NFr Bld Auto 0.8% Normal [id number] HHCCT Lymphocytes/leuk NFr Bld Auto 12.1% Normal [id number] HHCCT PMV Bld Auto 9.4fL Normal [id number] 7.5 - 12.[address] Monocytes num Bld Auto 1.25Thou/uL Normal [id number] 0.2 - 1.5 HHCCT Hct VFr Bld Auto 38.9% Normal [id number] 35 - 47 HHCCT Neutrophils num Bld Auto 15.79Thou/uL Above high normal [id number] 2 - 7.5 HHCCT Neutrophils/leuk NFr Bld Auto 80.3% Normal [id number] HHCCT Basophils/leuk NFr Bld Auto 0.4% Normal [id number] HHCCT Basophils num Bld Auto 0.07Thou/uL Normal [id number] 0 - 0.2 HHCCT Monocytes/leuk NFr Bld Auto 6.4% Normal [id number] HHCCT Eosinophil num Bld Auto 0Thou/uL Normal [id number] 0 - 0.7 HHCCT MCH RBC Qn Auto 29.4pg Normal [id number] 26 - 34 H HCCT Eosinophil/leuk NFr Bld Auto 0% Normal [id number] HHCCT Imm Granulocytes num Bld Auto 0.16Thou/uL Above high normal [id number] 0 - 0.1 HHCCT RDW RBC Auto-Rto 12.6% Normal [id number] 11.5 - 14. 5 HHCCT Platelet num Bld Auto 450Thou/uL Normal [id number] 150 - 450 HHCCT MCHC RBC Auto-mCnc 32.6g/dL Normal [id number] 30 - 36 HHCCT MCV RBC Auto 90fL Normal [id number] 80 - 100 HHCC T WBC num Bld Auto 19.7Thou/uL Above high normal [id number] 4 - 11 HHCCT RBC num Bld Auto 4.32Mil/uL Normal [id number] 4 - 5.4 HHCCT Hgb Bld-mCnc 12.7g/dL Normal [id number] 11.7 - 15.7 HH CCT Lymphocytes num Bld Auto 2.38Thou/uL Normal [id number] 1.5 - 4.5 HHCCT
== END 2024-04-11 11:27 | disposition home or self-care (01) ==
PROVIDERS: Physician Assistant Medical; Emergency Provider Emergency Medicine Emergency Medical Services; PCP Internal Medicine
DX: J40 Bronchitis, not specified as acute or chronic (principal); J44.1 Chronic obstructive pulmonary disease with (acute) exacerbation; R50.9 Fever, unspecified; R05.9 Cough, unspecified; K76.0 Fatty (change of) liver, not elsewhere classified; R06.02 Shortness of breath; F17.210 Nicotine dependence, cigarettes, uncomplicated; Z03.818 Encounter for observation for suspected exposure to other biological agents ruled out
CPT/HCPCS: 0241U; 71046; 99283

== ENCOUNTER 2024-04-16 09:30 | Inpatient (IN) | payer OTHER, SELFPAY ==
[2024-04-16 09:36] VITALS: BP 128/78; PULSE 118; O2SAT 96
--- NOTE | 2024-04-16 09:44 | PC.NURSE ---
Pt. was assessed by [facility] in the community and is a bed search
--- NOTE | 2024-04-16 09:45 | PC.NURSE ---
Pt. did not arrive with a Section 12 per EMS
[2024-04-16 09:49] VITALS: BP 121/91; PULSE 84; RESP 18; TEMP 36.6; O2SAT 93
--- NOTE | 2024-04-16 10:46 | ED_ITS ---
HPI - Psych General Chief Complaint: Psychiatric Symptoms Stated Complaint: SI Time Seen by Provider: 04/16/24 09:39 Source: patient, EMS, RN notes reviewed and old records reviewed Mode of arrival: EMS History of Present Illness ED Provider: Frida Velázquez PA-C HPI Narrative: 38-year-old female with a past medical history of asthma, COPD, fatty liver, bipolar, depression, PTSD, presenting to the ED via EMS from home complaining of medication noncompliance x months. Per EMS patient was evaluated by [facility] and told to come to the hospital, however patient presented without section 12. Patient states she has mental disorder. Denies SI/HI. Poor historian Related Data Home Medications ?Medication ?Instructions ?Recorded ?Confirmed trazodone 100 mg tablet 200 mg PO BEDTIME PRN Insomnia 01/07/24 04/16/24 ziprasidone HCl 80 mg capsule 80 mg PO BIDWM 01/07/24 04/16/24 hydroxyzine pamoate 50 mg capsule 50 mg PO Q4H PRN Anxiety 02/05/24 04/16/24 nabumetone 750 mg tablet 750 mg PO TID PRN Breakthrough 02/05/24 04/16/24 Pain, Moderate Previous Rx's ?Medication ?Instructions ?Recorded topiramate 50 mg tablet 50 mg PO BEDTIME #30 tabs 06/27/23 meclizine 25 mg tablet 25 mg PO DAILY PRN for motion 09/15/23 sickness #90 tabs cyclobenzaprine 10 mg tablet 10 mg PO TID PRN muscle spasm 30 11/02/23 days #90 tabs albuterol sulfate 90 mcg/actuation 2 puff PO Q4H PRN bronchospasm 30 11/17/23 aerosol inhaler (Ventolin HFA) days #18 grams fluticasone propionate 50 1 spray intranasal DAILY 30 days 11/17/23 mcg/actuation nasal #16 grams spray,suspension (Flonase Allergy Relief) amlodipine 5 mg tablet 5 mg PO DAILY #30 tabs 01/13/24 atorvastatin 10 mg tablet 10 mg PO BEDTIME 90 days #90 tabs 01/13/24 buspirone 30 mg tablet 30 mg PO BID 90 days #180 tabs 01/13/24 omeprazole 20 mg capsule,delayed 20 mg PO DAILY@0630 90 days #90 01/13/24 release caps cetirizine 10 mg tablet (All Day 10 mg PO DAILY PRN allergy 03/02/24 Allergy (cetirizine)) symptoms 90 days #90 tabs acetaminophen 650 mg 650 mg PO Q8H PRN pain 30 days #90 03/12/24 tablet,extended release tabs fluticasone propionate 115 2 puff inhalation BID 30 days #12 04/07/24 mcg-salmeterol 21 mcg/actuation grams HFA inhaler (Advair HFA) umeclidinium 62.5 mcg/actuation 1 inh inhalation BEDTIME 30 days 04/14/24 blister powder for inhalation #30 ea (Incruse Ellipta) Allergies Allergy/AdvReac Type Severity Reaction Status Date / Time animal dander [PET DANDER] Allergy Unknown ITCHING Verified 04/16/24 12:58 bee pollen [BEE STINGS] Allergy Unknown SWELLING Verified 04/16/24 12:58 house dust Allergy Unknown Unknown Verified 04/16/24 12:58 shellfish derived Allergy Unknown SWELLING Verified 04/16/24 12:58 [SHELLFISH DERIVED] SEASONAL ALLERGIES Allergy Unknown ITCHING Uncoded 04/16/24 12:58 Review of Systems 2 Review of Systems: Yes all other systems are reviewed and are negative Constitutional: Constitutional: Reports as per [facility] Past Medical History Attestation statement: The following information was validated with the patient. Source: old records reviewed Medical History Severe asthma with allergic rhinitis Allergic rhinitis Vertigo Surgical History No pertinent past surgical history Family History Family History Father Lung cancer CVD (cardiovascular disease) Mother Past heart attack Diabetes Emphysema lung CVD (cardiovascular disease) Family/Other FH: mental illness Maternal Grandmother No problems noted. Paternal Grandmother No problems noted. Social History Social History Household Members: Children and Friend(s) Housing: Apartment Do you presently have visiting nurse or other home services: No Alcohol intake: current Alcohol intake frequency: 3 or more drinks per day Alcohol type: beer and hard liquor Patient Tobacco Use Status: Former Tobacco user Tobacco use type: Cigarette Cigarette Packs Per Day: 1 Smoked in Last 30 Days: Yes e-Cigarette/Vaping Use: Never Used Second Hand Smoke Exposure: No Use of substances other than those prescribed or required for medical reasons: Yes Substance Use Type: Crack/Cocaine and Heroin Substance Use Frequency: Daily Advance Directives: No Advance Directives Information Provided: Yes Do you have a plan to hurt others: No Plan service: No Current occupational status: unemployed Sexual orientation: Straight/Heterosexual Cognitive needs: No Hearing needs: No Vision needs: No Physical Exam 2 Vital Signs: Vital Signs: Last Vital Signs Temp 97.8 F 04/16/24 09:49 Pulse 84 04/16/24 09:49 Resp 18 04/16/24 09:49 BP 121/91 H 04/16/24 09:49 Pulse Ox 93 04/16/24 09:49 O2 Del Method Room Air 04/16/24 09:49 BMI result Body Mass Index 53.1 Const: General: cooperative, healthy appearing and no acute distress O rientation/consciousness: patient oriented x3 Limitations: no limitations HEENT: Head: Yes normal to inspection and Yes atraumatic Ears: hearing grossly normal bilaterally General nose exam: Normal external nose present Face and sinus: Yes normal facial exam Eyes: General: appearance normal, both eyes and all related structures EOM: EOMs intact bilaterally Neck: Neck: Yes normal visual inspection and Yes no meningeal signs Resp: Effort & Inspection: normal respiratory effort and no respiratory distress Auscultation: clear to auscultation bilaterally Cardio: Rate: regular rate Heart sounds: S1 normal heart sound present and S2 normal heart sound present GI: Inspection: Yes normal to inspection Palpation (GI): Soft to palpation, nontender, no guarding and not rigid Skin: Rashes: no rashes Wounds: no wounds Neuro: General: patient oriented x3, tone normal and no meningeal signs C ranial nerves: Yes CN's II-XII intact bilaterally Gait exam (Neuro): Normal gait present Extrem: General: Yes normal to inspection Psych: Speech and movement: Slowed movement present (Neuro) Attitude: c ooperative Thought content: suicidality and no homicidality Course Course Course Narrative: -1208--leukocytosis of 18.7 > patient currently on prednisone for COPD exacerbation seen in our ED on 04/11/2024 -labs otherwise reassuring -1210--physician observation initiated as patient needs more time to be evaluated by CARE team -patient admitted to inpatient psych Medical Decision Making Medical Decision Making MDM Narrative: 38-year-old female with a past medical history of asthma, COPD, fatty liver, bipolar, depression, PTSD, presenting to the ED via EMS from home complaining of medication noncompliance x months. On exam vital signs stable, NAD, nontoxic appearing, hypersexual on nursing evaluation, denies SI/HI. Reports medication noncompliance. Concern for acute psychosis & medication noncompliance. Rule out metabolic infectious etiologies Plan: Labs, tox screen, CARE team consult Please refer to course for remaining clinical decision making, interpretation of labs/imaging results, and discussions with consultants and/or family members. Differential Diagnosis Differential Diagnoses: The differential diagnosis associated with the presentation includes As above Admission/Observation Consideration of admission/observation: Escalation of care including admission/observation considered Consult Healthcare Provider Management of the patient was discussed with: Behavioral Health Provider Lab Data [facility] Lab Attestation statement: I reviewed the patient's lab results. 04/16/24 11:18 04/16/24 11:18 Labs: Lab Results 04/16/24 Range/Units 11:18 WBC 18.7 H (4.8-10.8) X10*3/uL RBC 4.91 D (4.20-5.50) X10*6/uL Hgb 14.3 D (12.0-16.0) g/dl Hct 41.8 (37.0-47.0) % MCV 85.1 (80.0-98.0) fL MCH 29.1 (27.0-33.0) pg MCHC 34.2 (31.0-35.0) g/dl RDW 12.3 (11.0-16.0) % Plt Count 451 H (160-400) X10*3/uL MPV 9.4 (9.4-12.3) fL Immature Gran % (Auto) 0.8 H (0.0-0.4) % Neut % (Auto) 85.8 H (45-73) % Lymph % (Auto) 10.6 L (20-40) % [place] % (Auto) 2.5 (2-11) % Eos % (Auto) 0.1 (0-4) % Baso % (Auto) 0.2 (0-2) % Lymph # (Auto) 2.0 (1.2-4.9) X10*3/uL [place] # (Auto) 0.5 (0.1-1.2) X10*3/uL Eos # (Auto) 0.0 (0.0-0.4) X10*3/uL Baso # (Auto) 0.0 (0.0-0.2) X10*3/uL Abs Immat Gran (auto) 0.15 H (0.00-0.03) X10*3/uL Absolute Neuts (auto) 16.1 H (2.0-8.3) x10*3/uL Absolute Nucleated RBC 0.000 (0.0-0.012) X10*3/uL Nucleated RBC % (auto) 0.0 (0.0-0.2) /100WBC Sodium 140 (135-145) mmol/L Potassium 3.3 (3.3-5.1) mmol/L Chloride 106 (96-108) mmol/L Carbon Dioxide 24 (22-29) mmol/L Anion Gap 13 (12-20) BUN 17 H (9-16) mg/dL Creatinine 0.78 (0.5-1.4) mg/dL Estim Creat Clear Calc TNP Estimated GFR > 60 Random Glucose 126 H (60-115) mg/dL Calcium 9.6 (8.4-10.2) mg/dL Magnesium 1.7 (1.6-2.6) mg/dL Total Bilirubin 0.5 (0.0-1.0) mg/dL Direct Bilirubin 0.2 (0.0-0.5) mg/dL AST 12 (5-31) U/L ALT 14 (0-31) U/L Alkaline Phosphatase 94 (39-117) U/L Total Protein 7.6 (6.5-8.0) g/dL Albumin 4.3 (3.5-5.0) g/dL Salicylates < 5.0 L (15-30) mg/dL Acetaminophen 3 (<30) mcg/mL Radiology Impression Discussion of test interpretation with radiology: I have reviewed the radiologist's reading. Independent Historian Clinical information obtained from an independent historian. History obtained from or confirmed by: EMS External Record Review External record reviewed: Inpatient record, Office record, Outpatient record, Prior outpatient labs, Prior outpatient radiology, Primary care record and Outside ED record Tests considered The following testing was considered but not selected: As above Chronic Conditions Patient?s care impacted by: Other Social Determinants Patient?s care significantly limited by Social Determinants of Health including: Other Social Determinant of Health Discharge Plan Discharge Clinical Impression: Noncompliance with medications Patient Disposition: Still a Patient Interventions: [place]-Suicide Risk Severity Scale Last Done: 04/16/24 10:53
[2024-04-16 11:25] LABS: MANUAL DIFF FLAG NO
[2024-04-16 11:27] LABS: Basophils Percent Auto 0.2 % (0-2); Eosinophils Percent Auto 0.1 % (0-4); Hematocrit 41.8 % (37.0-47.0); Hemoglobin 14.3 g/dl (12.0-16.0); Imm Gran Abs Auto 0.15 X10*3/uL (0.00-0.03); Imm Gran Pct Auto 0.8 % (0.0-0.4); Lymphocytes Percent Auto 10.6 % (20-40); Mean Corpuscular HGB Conc 34.2 g/dl (31.0-35.0); Mean Corpuscular Hemoglobin 29.1 pg (27.0-33.0); Mean Corpuscular Volume 85.1 fL (80.0-98.0); Mean Platelet Volume 9.4 fL (9.4-12.3); Monocytes Absolute Auto 0.5 X10*3/uL (0.1-1.2); Monocytes Percent Auto 2.5 % (2-11); Neutrophils Absolute Auto 16.1 x10*3/uL (2.0-8.3); Neutrophils Percent Auto 85.8 % (45-73); Platelet Count 451 X10*3/uL (160-400); Red Blood Count 4.91 X10*6/uL (4.20-5.50); Red Cell Distribution Width 12.3 % (11.0-16.0); White Blood Count 18.7 X10*3/uL (4.8-10.8)
[2024-04-16 11:46] LABS: Acetaminophen LAB 3 mcg/mL (<30); Salicylate < 5.0 mg/dL (15-30)
[2024-04-16 11:47] LABS: Alanine Aminotransferase 14 U/L (0-31); Albumin Level 4.3 g/dL (3.5-5.0); Alkaline Phosphatase 94 U/L (39-117); Anion Gap 13 (12-20); Aspartate Amino Transferase 12 U/L (5-31); Bilirubin Direct 0.2 mg/dL (0.0-0.5); Bilirubin Total 0.5 mg/dL (0.0-1.0); Blood Urea Nitrogen 17 mg/dL (9-16); Calcium 9.6 mg/dL (8.4-10.2); Carbon Dioxide 24 mmol/L (22-29); Chloride 106 mmol/L (96-108); Estimated Glomerular Filt Rate > 60; Glucose Random 126 mg/dL (60-115); Magnesium 1.7 mg/dL (1.6-2.6); Potassium 3.3 mmol/L (3.3-5.1); Sodium 140 mmol/L (135-145); Total Protein 7.6 g/dL (6.5-8.0)
[2024-04-16 12:58] VITALS: BMI 53.1
--- NOTE | 2024-04-16 16:33 | PHA.MEDREC ---
Pharmacy Consult ? Medication Reconciliation Pharmacy has completed the medication reconciliation.
--- NOTE | 2024-04-16 18:49 | PC.NURSE ---
Samaria was admitted from the POD on a CV after presenting d/t non compliance with her medications. This lead technical writer and another RN changed her over. Skin unremarkable and WNL. VS BP 184/99, HR 78 o2 98% on RA T 97.9. PT showed to their room and given dinner. Samaria reports she has not received any medications since she has been in the ED. Admission will be passed to next shift.
[2024-04-16 20:00] VITALS: BP 145/80; PULSE 92; TEMP 36.8; O2SAT 98
[2024-04-16] MEDS: Ziprasidone 20 MG CAPSULE PO (20:16)
[2024-04-16] MEDS: Atorvastatin Calcium 10 MG TABLET PO (20:16)
[2024-04-16] MEDS: busPIRone HCl 10 MG TABLET PO (20:16)
[2024-04-16] MEDS: Nicotine Polacrilex 2 MG GUM 4 MG BUCCAL (20:17)
[2024-04-16] MEDS: hydrOXYzine HCL 25 MG TABLET PO (20:17)
[2024-04-16] MEDS: Fluticasone Propionate 100 MCG BLST.W.DEV 2 PUFF INHALE (20:17)
[2024-04-16] MEDS: Topiramate 25 MG TABLET PO (20:17)
[2024-04-16] MEDS: OLANZapine 5 MG TABLET PO (20:17)
[2024-04-16] MEDS: traZODone HCL 50 MG TABLET PO (20:17)
[2024-04-17] MEDS: Albuterol Sulfate 90 MCG 8 GM INHALER 2 PUFF INHALE ×2 (00:30→20:23)
[2024-04-17] MEDS: Magnesium Hydrox/Alum Hydrox 30 ML ORAL.SUSP PO (01:53)
--- NOTE | 2024-04-17 03:08 | PC.ADMIT ---
Patient admitted to unit from [facility] following [facility] assessment in her home where she resides with significant other and daughter. Patient was seen due to reports that she was presenting as disoriented and depressed. Patient reported increasing anxiety and depression as well as utilization of substances to do self harm. Patient reported to TW that she drinks a fifth of vodka daily, does crack, cocaine,CBD and heroin daily and smokes at least 1.5 packs of cigarettes daily. This is reported by family to not be true. Patient does not appear to be in distress or to be exhibiting any symptoms of withdrawal.Denies SI/HI/AVH however has been observed to be self dialoging and laughing to self throughout the night. Patient signed a CV upon admission and has since requested and signed a 3 day notice. On 15 minute checks and reports feeling safe on unit.
[2024-04-17 08:46] VITALS: BP 178/97; PULSE 85; RESP 16; TEMP 36.9; O2SAT 97
[2024-04-17] MEDS: Montelukast Sodium 10 MG TABLET PO (08:52)
[2024-04-17] MEDS: Ziprasidone 20 MG CAPSULE PO ×2 (08:52→18:50)
[2024-04-17] MEDS: busPIRone HCl 10 MG TABLET PO ×2 (08:52→18:50)
[2024-04-17] MEDS: Omeprazole 20 MG CAPSULE.DR PO (08:52)
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
[2024-04-17] MEDS: Fluticasone Propionate 100 MCG BLST.W.DEV 2 PUFF INHALE (10:41)
[2024-04-17] MEDS: OLANZapine 5 MG TABLET PO (16:23)
[2024-04-17] MEDS: hydrOXYzine HCL 25 MG TABLET PO (16:23)
[2024-04-17] MEDS: Topiramate 25 MG TABLET PO (18:49)
[2024-04-17] MEDS: traZODone HCL 50 MG TABLET PO (18:49)
[2024-04-17] MEDS: Atorvastatin Calcium 10 MG TABLET PO (18:50)
[2024-04-17 20:00] VITALS: PULSE 82; RESP 16; TEMP 36.5; O2SAT 98
[2024-04-17] MEDS: Nicotine Polacrilex 2 MG GUM 4 MG BUCCAL (20:59)
[2024-04-18] MEDS: Magnesium Hydrox/Alum Hydrox 30 ML ORAL.SUSP PO (00:28)
[2024-04-18] MEDS: Nicotine Polacrilex 2 MG GUM 4 MG BUCCAL (04:10)
[2024-04-18] MEDS: Milk of Magnesia 30 ML ORAL.SUSP PO ×2 (04:10→13:01)
[2024-04-18] MEDS: Acetaminophen 325 MG TABLET 650 MG PO ×2 (07:06→15:49)
[2024-04-18] MEDS: Fluticasone Propionate 100 MCG BLST.W.DEV 2 PUFF INHALE (07:55)
[2024-04-18] MEDS: Sertraline HCL 25 MG TABLET PO (07:55)
[2024-04-18] MEDS: hydrOXYzine HCL 25 MG TABLET PO ×2 (07:56→15:49)
[2024-04-18] MEDS: Omeprazole 20 MG CAPSULE.DR PO (07:56)
[2024-04-18] MEDS: busPIRone HCl 10 MG TABLET PO ×2 (07:56→22:58)
[2024-04-18] MEDS: Montelukast Sodium 10 MG TABLET PO (07:56)
[2024-04-18] MEDS: Ziprasidone 20 MG CAPSULE PO (07:56)
[2024-04-18] MEDS: OLANZapine 10 MG TABLET PO ×3 (10:04→22:58)
--- NOTE | 2024-04-18 10:58 | P.PNPSI_ITS ---
Subjective Subjective Date of Service: 04/18/24 Reason For Visit: ptsd; bipolar disorder Subjective Notes: Conditional Voluntary and 3 Day Interim History: The nursing staff reported the patient had been on 5 minute checks she had been very labile responding to internal stimuli yelling and crying, having conversations with herself and sometimes talking over the phone and there is nobody on the other line. I tried to interview but the patient was crying dramatically unable to we redirected. She had been intrusive attention seeking, grossly disorganized. I review today the referral for [facility] and apparently she never had a substance abuse problem. She had been extremely delusional. We will try to gather more collateral information. Mental Status Exam Mental Status Exam Patient Appearance: Unkempt Patient Orientation: Person and Situation Level of Consciousness: Disoriented and Restless Patient Behavior: Guarded, Suspicious and Restless Mood Description: Hostile Affect Description: Labile Ability to Follow Directions: Poor Speech Pattern: Impoverished and Spontaneous Speech Hallucinations: Auditory Delusions: Paranoid Ideation and Ideas of Reference Thought Process: Incoherent, Illogical and Distracted Thought Content: positive for Loose Associations and positive for Tangential Judgement: Poor Diagnostics Vital Signs (24Hr): Vital Signs - 24 hr 04/17/24 20:00 Temperature 97.7 F Pulse Rate 82 Respiratory Rate 16 Pulse Oximetry 98 Oxygen Delivery Method Room Air BMI result Body Mass Index 53.1 Labs 04/16/24 11:18 04/16/24 11:18 Labs: Laboratory Results - last 48 hr 04/16/24 11:18 WBC 18.7 H RBC 4.91 D Hgb 14.3 D Hct 41.8 MCV 85.1 MCH 29.1 MCHC 34.2 RDW 12.3 Plt Count 451 H MPV 9.4 Immature Gran % (Auto) 0.8 H Neut % (Auto) 85.8 H Lymph % (Auto) 10.6 L [place] % (Auto) 2.5 Eos % (Auto) 0.1 Baso % (Auto) 0.2 Lymph # (Auto) 2.0 [place] # (Auto) 0.5 Eos # (Auto) 0.0 Baso # (Auto) 0.0 Abs Immat Gran (auto) 0.15 H Absolute Neuts (auto) 16.1 H Absolute Nucleated RBC 0.000 Nucleated RBC % (auto) 0.0 Sodium 140 Potassium 3.3 Chloride 106 Carbon Dioxide 24 Anion Gap 13 BUN 17 H Creatinine 0.78 Estim Creat Clear Calc TNP Estimated GFR > 60 Random Glucose 126 H Calcium 9.6 Magnesium 1.7 Total Bilirubin 0.5 Direct Bilirubin 0.2 AST 12 ALT 14 Alkaline Phosphatase 94 Total Protein 7.6 Albumin 4.3 Salicylates < 5.0 L Acetaminophen 3 Medications Medications Current Medications Acetaminophen (Acetaminophen 325 Mg Tablet) 650 mg PO Q6H PRN PRN Reason: Headache/Pain Mild Scale (1-3) Last Admin: 04/18/24 07:06 Dose: 650 mg Al Hydroxide/Mg Hydroxide (Magnesium Hydrox/Alum Hydrox 30 Ml Oral.Susp) 30 ml PO Q6H PRN PRN Reason: Heartburn/Nausea Last Admin: 04/18/24 00:28 Dose: 30 ml Albuterol Sulfate (Albuterol Sulfate 90 Mcg 8 Gm Inhaler) 2 puff INHALE RQ4H PRN PRN Reason: Wheezing Last Admin: 04/17/24 20:23 Dose: 2 puff Atorvastatin Calcium (Atorvastatin Calcium 10 Mg Tablet) 10 mg PO BEDTIME [facility] Last Admin: 04/17/24 18:50 Dose: 10 mg Buspirone HCl (Buspirone Hcl 10 Mg Tablet) 10 mg PO BID [facility] Last Admin: 04/18/24 07:56 Dose: 10 mg Cyclobenzaprine HCl (Cyclobenzaprine Hcl 5 Mg Tablet) 5 mg PO TID PRN PRN Reason: muscle spasm Fluticasone Propionate (Fluticasone Propionate 100 Mcg Blst.W.Dev) 2 puff INHALE RBID [facility] Last Admin: 04/18/24 07:55 Dose: 2 puff Hydroxyzine HCl (Hydroxyzine Hcl 25 Mg Tablet) 25 mg PO Q6H PRN PRN Reason: Anxiety Last Admin: 04/18/24 07:56 Dose: 25 mg Loratadine (Loratadine 10 Mg Tablet) 10 mg PO DAILY PRN PRN Reason: allergy symptoms Magnesium Hydroxide (Milk Of Magnesia 30 Ml Oral.Susp) 30 ml PO DAILY PRN PRN Reason: Constipation Last Admin: 04/18/24 04:10 Dose: 30 ml Montelukast Sodium (Montelukast Sodium 10 Mg Tablet) 10 mg PO DAILY [facility] Last Admin: 04/18/24 07:56 Dose: 10 mg Nicotine (Nicotine 21 Mg Patch.Td24) 21 mg TRANSDERMA DAILY PRN PRN Reason: nicotine cravings Nicotine Polacrilex (Nicotine Polacrilex 2 Mg Gum) 4 mg BUCCAL Q2H PRN PRN Reason: Nicotine Cravings Last Admin: 04/18/24 04:10 Dose: 4 mg Olanzapine (Olanzapine 10 Mg Tablet) 10 mg PO Q6H PRN PRN Reason: agitation Last Admin: 04/18/24 10:04 Dose: 10 mg Omeprazole (Omeprazole 20 Mg Capsule.Dr) 20 mg PO DAILY@0630 [facility] Last Admin: 04/18/24 07:56 Dose: 20 mg Sertraline HCl (Sertraline Hcl 25 Mg Tablet) 25 mg PO DAILY [facility] Last Admin: 04/18/24 07:55 Dose: 25 mg Topiramate (Topiramate 25 Mg Tablet) 25 mg PO BEDTIME [facility] Last Admin: 04/17/24 18:49 Dose: 25 mg Trazodone HCl (Trazodone Hcl 50 Mg Tablet) 50 mg PO BEDTIME MRX1 PRN PRN Reason: Insomnia Last Admin: 04/17/24 18:49 Dose: 50 mg Ziprasidone (Ziprasidone 20 Mg Capsule) 20 mg PO BID [facility] Last Admin: 04/18/24 07:56 Dose: 20 mg Allergies Allergies Allergy/AdvReac Type Severity Reaction Status Date / Time animal dander [PET DANDER] Allergy Unknown ITCHING Verified 04/16/24 12:58 bee pollen [BEE STINGS] Allergy Unknown SWELLING Verified 04/16/24 12:58 house dust Allergy Unknown Unknown Verified 04/16/24 12:58 shellfish derived Allergy Unknown SWELLING Verified 04/16/24 12:58 [SHELLFISH DERIVED] SEASONAL ALLERGIES Allergy Unknown ITCHING Uncoded 04/16/24 12:58 Assessment & Plan Assessment & Plan (1) Noncompliance with medications: Status: Acute Code(s): Z91.148 - Patient's other noncompliance with medication regimen for other reason (2) Bipolar disorder: Qualifiers: Active/Remission status: remission status unspecified Qualified Code(s): F31.9 - Bipolar disorder, unspecified Status: Acute Code(s): F31.9 - Bipolar disorder, unspecified (3) PTSD (post-traumatic stress disorder): Status: Acute Code(s): F43.10 - Post-traumatic stress disorder, unspecified Plan The patient is an adult female with a past history of bipolar disorder, chronic noncompliance and as per her report use of alcohol and crack cocaine who was brought from the community due to [facility] mobile crisis that referred her to the emergency room. Apparently the patient had being complaining of panic attacks but it seems that the patient is grossly disorganized. Very concrete most likely due to chronic mental illness and noncompliance. Plan 1. Gather collateral information. 2. 50 minute checks since the patient is able to contract for safety in the facility. 3. Continue with Geodon, Topamax and other medications as per med reconciliation form. 4. Reassessment with results. Reason for continued inpatient stay Substantial Risk for: inability to function, rapid decompensation and med/psych decompensation Time Spent With Patient Time: Total time managing care of this patient today __20__ minutes.
[2024-04-18] MEDS: Cyclobenzaprine HCl 5 MG TABLET PO (11:10)
[2024-04-18] MEDS: Albuterol Sulfate 90 MCG 8 GM INHALER 2 PUFF INHALE (15:47)
[2024-04-18] MEDS: Topiramate 25 MG TABLET PO (22:53)
[2024-04-18] MEDS: Atorvastatin Calcium 10 MG TABLET PO (22:59)
[2024-04-19 00:23] VITALS: BP 167/103; PULSE 86; RESP 15; TEMP 36.7; O2SAT 97
[2024-04-19] MEDS: Cyclobenzaprine HCl 5 MG TABLET PO ×3 (01:39→15:47)
--- NOTE | 2024-04-19 06:45 | PC.NURSE ---
Patient came out to the nurses' station and apologized for marking up the doors with crayon.
[2024-04-19] MEDS: Ziprasidone 20 MG CAPSULE PO (08:16)
[2024-04-19] MEDS: Albuterol Sulfate 90 MCG 8 GM INHALER 2 PUFF INHALE (08:16)
[2024-04-19] MEDS: Fluticasone Propionate 100 MCG BLST.W.DEV 2 PUFF INHALE (08:16)
[2024-04-19] MEDS: OLANZapine 10 MG TABLET PO ×2 (08:16→15:47)
[2024-04-19] MEDS: Sertraline HCL 25 MG TABLET PO (08:16)
[2024-04-19] MEDS: busPIRone HCl 10 MG TABLET PO (08:16)
[2024-04-19] MEDS: Montelukast Sodium 10 MG TABLET PO (08:17)
[2024-04-19] MEDS: hydrOXYzine HCL 25 MG TABLET PO (08:17)
[2024-04-19] MEDS: Omeprazole 20 MG CAPSULE.DR PO (08:17)
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
[2024-04-19] MEDS: Milk of Magnesia 30 ML ORAL.SUSP PO (10:49)
[2024-04-19] MEDS: Ibuprofen 600 MG TABLET PO (11:31)
[2024-04-19 20:00] VITALS: RESP 14
[2024-04-20] MEDS: OLANZapine 10 MG TABLET PO (05:00)
[2024-04-20] MEDS: Cyclobenzaprine HCl 5 MG TABLET PO (05:00)
[2024-04-20] MEDS: Ibuprofen 600 MG TABLET PO (05:00)
[2024-04-20] MEDS: hydrOXYzine HCL 25 MG TABLET PO (05:00)
[2024-04-20] MEDS: Omeprazole 20 MG CAPSULE.DR PO (05:04)
--- NOTE | 2024-04-20 05:50 | PC.NURSE ---
Patient woke at approx 0530 requesting food and drink, after eating pt seeks out RN stating You need to give me my meds so I can go to sleep RN informed pt of med timeline, oriented to time of day and available PRN medications. Pt requested all my meds again and stated I have a super lot of pain PRNs provided. Pt then states I'm going to be in my room for the rest of the day, you can bring me my meds and my meals to my room, thank you ma'am Pt does not respond to follow up questions.
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
[2024-04-20 09:28] VITALS: BP 148/84; PULSE 95; RESP 16; TEMP 36.6; O2SAT 99
[2024-04-20] MEDS: Fluticasone Propionate 100 MCG BLST.W.DEV 2 PUFF INHALE (09:42)
[2024-04-20] MEDS: Albuterol Sulfate 90 MCG 8 GM INHALER 2 PUFF INHALE (09:42)
--- NOTE | 2024-04-20 09:44 | PC.NURSE ---
pt refused morning scheduled medications, I'll take them at noon, thank you very much. Pt then turned and walked away. Provider notified via tiger text. will reapproach at noon
[2024-04-20] MEDS: Montelukast Sodium 10 MG TABLET PO (13:05)
[2024-04-20] MEDS: busPIRone HCl 10 MG TABLET PO ×2 (13:05→22:26)
[2024-04-20] MEDS: LORazepam 1 MG TABLET PO (15:12)
[2024-04-20] MEDS: Ziprasidone 20 MG CAPSULE PO (15:12)
[2024-04-20] MEDS: Atorvastatin Calcium 10 MG TABLET PO (22:25)
[2024-04-20] MEDS: Ziprasidone 60 MG CAPSULE PO (22:25)
[2024-04-20] MEDS: Topiramate 25 MG TABLET PO (22:26)
[2024-04-21] MEDS: Albuterol Sulfate 90 MCG 8 GM INHALER 2 PUFF INHALE ×2 (04:01→08:21)
[2024-04-21] MEDS: OLANZapine 10 MG TABLET PO (06:41)
[2024-04-21] MEDS: hydrOXYzine HCL 25 MG TABLET PO (06:41)
[2024-04-21] MEDS: Omeprazole 20 MG CAPSULE.DR PO (06:41)
[2024-04-21 08:00] VITALS: BP 132/89; PULSE 104; RESP 16; TEMP 37.2; O2SAT 94
[2024-04-21] MEDS: busPIRone HCl 10 MG TABLET PO ×2 (08:18→21:35)
[2024-04-21] MEDS: Montelukast Sodium 10 MG TABLET PO (08:18)
[2024-04-21] MEDS: Fluticasone Propionate 100 MCG BLST.W.DEV 2 PUFF INHALE (08:19)
[2024-04-21] MEDS: Cyclobenzaprine HCl 5 MG TABLET PO (09:45)
[2024-04-21] MEDS: Ibuprofen 600 MG TABLET PO (09:46)
[2024-04-21] MEDS: Nicotine Polacrilex 2 MG GUM 4 MG BUCCAL ×2 (12:10→16:18)
[2024-04-21] MEDS: Ziprasidone 20 MG CAPSULE PO (13:01)
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
[2024-04-21 20:00] VITALS: BP 168/96; PULSE 85; TEMP 36.8; O2SAT 97
[2024-04-21] MEDS: Atorvastatin Calcium 10 MG TABLET PO (21:35)
[2024-04-21] MEDS: Topiramate 25 MG TABLET PO (21:35)
[2024-04-21] MEDS: Ziprasidone 80 MG CAPSULE PO (21:36)
--- NOTE | 2024-04-22 | ECG_ITS ---
Test Reason : Qtc monitor Blood Pressure : / mmHG Vent. Rate : 078 BPM Atrial Rate : 078 BPM P-R Int : 124 ms QRS Dur : 086 ms QT Int : 392 ms P-R-T Axes : 025 055 029 degrees QTc Int : 446 ms Normal sinus rhythm Normal ECG When compared with ECG of 01-FEB-2024 04:00, No significant change was found Referred By: Olaf Evans Electronically Signed By:CÉSAR RASMUSSEN
[2024-04-22] MEDS: Nicotine Polacrilex 2 MG GUM 4 MG BUCCAL (01:45)
[2024-04-22] MEDS: Fluticasone Propionate 100 MCG BLST.W.DEV 2 PUFF INHALE ×3 (01:45→21:00)
[2024-04-22] MEDS: OLANZapine 10 MG TABLET PO ×3 (01:45→13:56)
[2024-04-22] MEDS: traZODone HCL 50 MG TABLET PO ×2 (01:45→20:51)
[2024-04-22] MEDS: hydrOXYzine HCL 25 MG TABLET PO ×3 (01:46→17:48)
[2024-04-22] MEDS: Albuterol Sulfate 90 MCG 8 GM INHALER 2 PUFF INHALE (04:03)
[2024-04-22] MEDS: Omeprazole 20 MG CAPSULE.DR PO (06:13)
[2024-04-22] MEDS: Cyclobenzaprine HCl 5 MG TABLET PO ×3 (06:13→20:51)
[2024-04-22 07:00] VITALS: BMI 42.7
[2024-04-22 07:43] VITALS: BP 186/101; PULSE 108; TEMP 36.9; O2SAT 97
[2024-04-22 07:58] VITALS: BP 164/82; PULSE 99
[2024-04-22] MEDS: Montelukast Sodium 10 MG TABLET PO (08:17)
[2024-04-22] MEDS: Ibuprofen 600 MG TABLET PO (08:17)
[2024-04-22] MEDS: busPIRone HCl 10 MG TABLET PO ×2 (08:17→20:51)
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
[2024-04-22] MEDS: Ziprasidone 20 MG CAPSULE PO (13:56)
[2024-04-22 20:00] VITALS: BP 164/93; PULSE 95; RESP 16; TEMP 36.6; O2SAT 97
[2024-04-22] MEDS: Topiramate 25 MG TABLET PO (20:51)
[2024-04-22] MEDS: Ziprasidone 80 MG CAPSULE PO (20:51)
[2024-04-22] MEDS: Atorvastatin Calcium 10 MG TABLET PO (20:51)
[2024-04-23] MEDS: Albuterol Sulfate 90 MCG 8 GM INHALER 2 PUFF INHALE ×3 (04:23→17:04)
[2024-04-23] MEDS: Omeprazole 20 MG CAPSULE.DR PO (07:04)
[2024-04-23] MEDS: Fluticasone Propionate 100 MCG BLST.W.DEV 2 PUFF INHALE ×2 (09:12→20:41)
[2024-04-23] MEDS: Cyclobenzaprine HCl 5 MG TABLET PO (09:13)
[2024-04-23] MEDS: hydrOXYzine HCL 25 MG TABLET PO ×2 (09:13→14:02)
[2024-04-23] MEDS: Montelukast Sodium 10 MG TABLET PO (09:13)
[2024-04-23] MEDS: Ziprasidone 40 MG CAPSULE PO (09:13)
[2024-04-23] MEDS: OLANZapine 10 MG TABLET PO ×2 (09:13→14:02)
[2024-04-23] MEDS: Ibuprofen 600 MG TABLET PO (09:14)
[2024-04-23] MEDS: busPIRone HCl 10 MG TABLET PO ×2 (09:19→20:41)
[2024-04-23] MEDS: Nicotine Polacrilex 2 MG GUM 4 MG BUCCAL (14:01)
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
[2024-04-23] MEDS: Ziprasidone 80 MG CAPSULE 160 MG PO (16:43)
[2024-04-23 20:00] VITALS: BP 154/92; PULSE 96; RESP 14; TEMP 36.8; O2SAT 97
[2024-04-23] MEDS: traZODone HCL 50 MG TABLET PO (20:41)
[2024-04-23] MEDS: Topiramate 25 MG TABLET PO (20:41)
[2024-04-23] MEDS: Atorvastatin Calcium 10 MG TABLET PO (20:41)
[2024-04-24] MEDS: Albuterol Sulfate 90 MCG 8 GM INHALER 2 PUFF INHALE ×3 (03:59→21:22)
[2024-04-24] MEDS: OLANZapine 10 MG TABLET PO ×2 (04:08→10:05)
[2024-04-24] MEDS: Acetaminophen 325 MG TABLET 650 MG PO (04:17)
[2024-04-24] MEDS: Loratadine 10 MG TABLET PO (04:43)
[2024-04-24] MEDS: hydrOXYzine HCL 25 MG TABLET PO ×3 (04:43→21:29)
[2024-04-24 08:00] VITALS: BP 142/89; PULSE 84; RESP 16; TEMP 36.9; O2SAT 99
[2024-04-24] MEDS: Cyclobenzaprine HCl 5 MG TABLET PO ×2 (10:04→22:55)
[2024-04-24] MEDS: Fluticasone Propionate 100 MCG BLST.W.DEV 2 PUFF INHALE ×2 (10:04→21:29)
[2024-04-24] MEDS: Nicotine Polacrilex 2 MG GUM 4 MG BUCCAL ×2 (10:04→16:25)
[2024-04-24] MEDS: Omeprazole 20 MG CAPSULE.DR PO (10:04)
[2024-04-24] MEDS: busPIRone HCl 10 MG TABLET PO ×2 (10:05→21:29)
[2024-04-24] MEDS: Montelukast Sodium 10 MG TABLET PO (10:05)
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
[2024-04-24] MEDS: Ziprasidone 80 MG CAPSULE 160 MG PO (16:26)
[2024-04-24 20:00] VITALS: RESP 16
[2024-04-24] MEDS: Atorvastatin Calcium 10 MG TABLET PO (21:29)
[2024-04-24] MEDS: Topiramate 25 MG TABLET PO (21:29)
[2024-04-24] MEDS: Milk of Magnesia 30 ML ORAL.SUSP PO (22:56)
[2024-04-25] MEDS: OLANZapine 10 MG TABLET PO ×2 (03:47→12:42)
[2024-04-25] MEDS: hydrOXYzine HCL 25 MG TABLET PO (03:47)
[2024-04-25] MEDS: Nicotine Polacrilex 2 MG GUM 4 MG BUCCAL (03:49)
[2024-04-25] MEDS: Fluticasone Propionate 100 MCG BLST.W.DEV 2 PUFF INHALE ×2 (08:51→22:26)
[2024-04-25] MEDS: Albuterol Sulfate 90 MCG 8 GM INHALER 2 PUFF INHALE ×2 (08:51→12:42)
[2024-04-25] MEDS: busPIRone HCl 10 MG TABLET PO ×2 (08:52→22:26)
[2024-04-25] MEDS: Montelukast Sodium 10 MG TABLET PO (08:52)
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
[2024-04-25 10:00] VITALS: BP 183/112; PULSE 101; TEMP 36.6; O2SAT 99
[2024-04-25 12:10] VITALS: BP 156/90
[2024-04-25] MEDS: Ziprasidone 80 MG CAPSULE 160 MG PO (17:04)
[2024-04-25 18:50] VITALS: BP 137/86; PULSE 107
[2024-04-25 19:52] VITALS: BP 136/86; PULSE 97; RESP 16; TEMP 37.1; O2SAT 98
[2024-04-25] MEDS: Cyclobenzaprine HCl 5 MG TABLET PO (22:26)
[2024-04-25] MEDS: Topiramate 25 MG TABLET PO (22:26)
[2024-04-25] MEDS: Atorvastatin Calcium 10 MG TABLET PO (22:26)
[2024-04-25] MEDS: traZODone HCL 50 MG TABLET PO (22:27)
[2024-04-26] MEDS: Albuterol Sulfate 90 MCG 8 GM INHALER 2 PUFF INHALE ×3 (03:26→22:05)
[2024-04-26] MEDS: Omeprazole 20 MG CAPSULE.DR PO (07:29)
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
[2024-04-26] MEDS: Fluticasone Propionate 100 MCG BLST.W.DEV 2 PUFF INHALE (12:40)
[2024-04-26] MEDS: Montelukast Sodium 10 MG TABLET PO (12:40)
[2024-04-26] MEDS: Cyclobenzaprine HCl 5 MG TABLET PO (15:52)
[2024-04-26] MEDS: hydrOXYzine HCL 25 MG TABLET PO ×2 (15:52→22:10)
[2024-04-26] MEDS: Ziprasidone 80 MG CAPSULE 160 MG PO (18:05)
[2024-04-26 20:00] VITALS: BP 171/106; PULSE 97; RESP 16; TEMP 36.9; O2SAT 99
[2024-04-26] MEDS: busPIRone HCl 10 MG TABLET PO (22:05)
[2024-04-26] MEDS: Atorvastatin Calcium 10 MG TABLET PO (22:05)
[2024-04-26] MEDS: Topiramate 25 MG TABLET PO (22:05)
[2024-04-27] MEDS: Nicotine Polacrilex 2 MG GUM 4 MG BUCCAL (03:08)
[2024-04-27] MEDS: Albuterol Sulfate 90 MCG 8 GM INHALER 2 PUFF INHALE (03:47)
[2024-04-27] MEDS: hydrOXYzine HCL 25 MG TABLET PO (04:51)
[2024-04-27] MEDS: Omeprazole 20 MG CAPSULE.DR PO (05:48)
[2024-04-27] MEDS: Acetaminophen 325 MG TABLET 650 MG PO (05:48)
[2024-04-27 07:47] VITALS: BP 124/92; PULSE 89; RESP 18; TEMP 37.1; O2SAT 97
[2024-04-27] MEDS: busPIRone HCl 10 MG TABLET PO (08:05)
[2024-04-27] MEDS: Montelukast Sodium 10 MG TABLET PO (08:05)
[2024-04-27] MEDS: Fluticasone Propionate 100 MCG BLST.W.DEV 2 PUFF INHALE (08:05)
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
== END 2024-04-27 12:22 | disposition home or self-care (01) | DRG 885 ==
LOC: HO.ED 13:05 → HO.PM5 15:32
PROVIDERS: Physician Assistant; Admitting Provider Clinical Nurse Specialist Psychiatric/Mental Health, Adult; Emergency Provider Student in an Organized Health Care Education/Training Program; PCP Internal Medicine; Visit Provider Psychiatry & Neurology Psychiatry
DX: F31.9 Bipolar disorder, unspecified (principal); F17.210 Nicotine dependence, cigarettes, uncomplicated; Z71.6 Tobacco abuse counseling; F43.10 Post-traumatic stress disorder, unspecified; Z91.148 Patient's other noncompliance with medication regimen for other reason; Z79.51 Long term (current) use of inhaled steroids; Z79.899 Other long term (current) drug therapy
CPT/HCPCS: 36415; 80048; 80076; 80143; 80179; 83735; 85025; 93005; 99285

== ENCOUNTER 2024-04-16 15:29 | Outpatient (BNV) | payer OTHER, SELFPAY | END 2024-04-22 13:39 | PROVIDERS: Admitting Provider Clinical Nurse Specialist Psychiatric/Mental Health, Adult; Emergency Provider Student in an Organized Health Care Education/Training Program; PCP Internal Medicine; Visit Provider Internal Medicine | DX: Z51.81 Encounter for therapeutic drug level monitoring (principal) | CPT/HCPCS: 93010 ==

== ENCOUNTER → 2024-04-16 15:29 | Outpatient (BNV) | payer OTHER, SELFPAY | PROVIDERS: Admitting Provider Clinical Nurse Specialist Psychiatric/Mental Health, Adult; Emergency Provider Student in an Organized Health Care Education/Training Program; PCP Internal Medicine; Visit Provider Psychiatry & Neurology Psychiatry | DX: F31.13 Bipolar disorder, current episode manic without psychotic features, severe (principal); F43.11 Post-traumatic stress disorder, acute | CPT/HCPCS: 90792; 99231; 99232 ==

== ENCOUNTER 2024-07-31 04:47 | Emergency (ER) | payer OTHER, SELFPAY ==
[2024-07-31 04:52] VITALS: BP 134/78; PULSE 82; O2SAT 96
[2024-07-31 04:56] VITALS: BP 140/84; PULSE 90; RESP 17; TEMP 36.9; O2SAT 98; BMI 43.1
== END 2024-07-31 08:32 | disposition left against medical advice (07) ==
PROVIDERS: Emergency Provider Emergency Medicine Emergency Medical Services
DX: M79.604 Pain in right leg (principal); M79.605 Pain in left leg
CPT/HCPCS: 99281

== ENCOUNTER 2024-07-31 22:17 | Emergency (ER) | payer OTHER, SELFPAY ==
[2024-07-31 22:21] VITALS: BP 126/80; BP 138/70; PULSE 75; PULSE 88; RESP 18; TEMP 36.7; O2SAT 98; O2SAT 99; BMI 45.7
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
--- NOTE | 2024-08-01 01:49 | ED.FALL ---
HPI - Fall General Chief Complaint: Fall Stated Complaint: FALL, LETHARGIC, +LOC, -HS PER EMS Time Seen by Provider: 08/01/24 01:44 Source: patient Mode of arrival: EMS Limitations: no limitations History of Present Illness ED Provider: Dr. Edward Harvey HPI Narrative: 39-year-old female with a past medical history of asthma, COPD, fatty liver, bipolar, depression, PTSD, presenting to the emergency department by ambulance for evaluation of fall. As per the nursing note, the patient was [place] [employer] and reported that she fell. There was no loss of consciousness. The patient told me that she hurt her left leg but otherwise has no other pain. She states that she has not been sleeping and she was very tired at this time and just wants to sleep. The patient denied head, neck, chest, abdominal pain. She denied fever, chills, chest pain or shortness of breath. Related Data Previous Rx's ?Medication ?Instructions ?Recorded albuterol sulfate 90 mcg/actuation 2 puff PO Q4H PRN bronchospasm 30 04/27/24 aerosol inhaler (Ventolin HFA) days #18 grams fluticasone propionate 115 2 puff inhalation BID 30 days #12 04/27/24 mcg-salmeterol 21 mcg/actuation grams HFA inhaler (Advair HFA) fluticasone propionate 50 1 spray intranasal DAILY 30 days 04/27/24 mcg/actuation nasal #16 grams spray,suspension (Flonase Allergy Relief) meclizine 25 mg tablet 25 mg PO DAILY PRN for motion 04/27/24 sickness #90 tabs nicotine (polacrilex) 2 mg gum 2 mg buccal Q2H PRN Nicotine 04/27/24 Cravings 30 days #100 ea trazodone 100 mg tablet 100 mg PO BEDTIME PRN Insomnia 30 04/27/24 days #30 tabs umeclidinium 62.5 mcg/actuation 1 inh inhalation BEDTIME 30 days 04/27/24 blister powder for inhalation #30 ea ziprasidone HCl 80 mg capsule 160 mg (2 x 80 mg) PO BEDTIME 30 04/27/24 days #60 caps nirmatrelvir 300 mg (150 mg 3 ea PO PER PKG DIR 5 days #30 ea 05/12/24 x2)-ritonavir 100 mg tablet,dose pack (Paxlovid) atorvastatin 10 mg tablet 10 mg PO BEDTIME 90 days #90 tabs 06/02/24 cetirizine 10 mg tablet (All Day 10 mg PO DAILY PRN allergy 06/02/24 Allergy (cetirizine)) symptoms 90 days #90 tabs cyclobenzaprine 10 mg tablet 10 mg PO TID PRN muscle spasm 30 06/02/24 days #90 tabs buspirone 10 mg tablet 10 mg PO BID 30 days #60 tabs 06/17/24 montelukast 10 mg tablet 10 mg PO DAILY 30 days #30 tabs 06/17/24 omeprazole 20 mg capsule,delayed 20 mg PO DAILY@0630 30 days #30 06/17/24 release caps hydroxyzine pamoate 50 mg capsule 50 mg PO BID PRN Anxiety 30 days 06/25/24 #60 caps nabumetone 750 mg tablet 750 mg PO BID PRN Breakthrough 06/25/24 Pain, Moderate 30 days #60 tabs topiramate 25 mg tablet 25 mg PO BEDTIME 30 days #30 tabs 06/25/24 Allergies Allergy/AdvReac Type Severity Reaction Status Date / Time animal dander [PET DANDER] Allergy Unknown Itching Verified 07/31/24 22:22 bee pollen [BEE STINGS] Allergy Unknown Swelling Verified 07/31/24 22:22 house dust Allergy Unknown Unknown Verified 07/31/24 22:22 shellfish derived Allergy Unknown Swelling Verified 07/31/24 22:22 [SHELLFISH DERIVED] Seasonal Allergies Allergy Itching Verified 07/31/24 22:22 Review of Systems Review of Systems: Yes all other systems are reviewed and are negative [facility] Past Medical History Medical History (Updated 08/01/24 @ 06:18 by Edward Harvey MD) Bipolar disorder Severe asthma with allergic rhinitis Allergic rhinitis Vertigo Surgical History No pertinent past surgical history Family History Family History Father Lung cancer CVD (cardiovascular disease) Mother Past heart attack Diabetes Emphysema lung CVD (cardiovascular disease) Family/Other FH: mental illness Maternal Grandmother No problems noted. Paternal Grandmother No problems noted. Social History Social History Household Members: Significant Other Housing: Apartment Do you presently have visiting nurse or other home services: No Alcohol intake: current Alcohol intake frequency: 3 or more drinks per day Alcohol type: beer and hard liquor Patient Tobacco Use Status: Current everyday Tobacco user Tobacco use type: Cigarette Cigarette Packs Per Day: 1.5 Cigarettes Per Day: 30.0 Years Smoked: 19 e-Cigarette/Vaping Use: Never Used Second Hand Smoke Exposure: No Substance Use Type: Crack/Cocaine and Heroin Advance Directives: No Do you have a plan to hurt others: No Plan service: No Current occupational status: unemployed Sexual orientation: Straight/Heterosexual Cognitive needs: No Hearing needs: No Vision needs: No Physical Exam Vital Signs: Vital Signs: Last Vital Signs Temp 98.1 F 07/31/24 22:21 Pulse 66 08/01/24 04:44 Resp 20 08/01/24 04:44 BP 126/80 07/31/24 22:21 Pulse Ox 98 08/01/24 04:44 O2 Del Method Room Air 08/01/24 04:44 BMI result Body Mass Index 45.7 Vital signs were normal Exam: General: Patient was somnolent but arousable, she does not appear to be in distress Head: Normocephalic, atraumatic EENT: PERRL, Lids normal, sclera normal, conjunctiva normal, nose normal , ears normal, throat without erythema or exudates Neck: Supple, no adenopathy Lung: breath sounds symmetric, no wheezing, rales or rhonchi Chest: symmetric movement, nontender Heart: regular rate and rhythm, normal S1, S2 no murmurs or rubs Abdomen: soft, non-tender, nondistended, normal bowel sounds Back: no vertebral tenderness, no CVAT Extremities: no deformities, moves all extremities symmetrically, no tenderness with palpation of her lower extremities Neuro: Somnolent but arousable, oriented, normal speech, cranial nerves intact, moves all extremities symmetrically Psych: Pleasant, cooperative Medical Decision Making Medical Decision Making MDM Narrative: 39-year-old female with a past medical history of asthma, COPD, fatty liver, bipolar, depression, PTSD, presenting to the emergency department by ambulance for evaluation of a reported fall at [employer]. Patient was complaining of left leg pain but otherwise has no other complaints. She states she was just very sleepy in his not been sleeping very much and would just like to sleep in the emergency department at this time. Vital signs were normal. Physical examination revealed some tenderness palpation of the in her left leg but no significant deformity. Differential diagnosis: ?Includes but is not limited to fall, head injury, leg injury Course: 01:55 Start physician observation This time I do not believe with the patient was you significant injury from her fall, she may have a contusion to her left leg but I do not think that she needs x-rays. Patient was somnolent and she will be observed here in the emergency department until she was awake and can be safely discharged home. 06:14 End physician observation on (date) (time): 39-year-old female with a history of asthma, COPD, fatty liver, bipolar disorder, depression, PTSD who fell at [employer] and presents emergency department with left leg pain and lethargy. Patient was now awake and alert and has no complaints. Observation care revealed the the patient does not meet medical necessity for hospitalization. Exam at time of disposition revealed the patient was awake, alert , oriented to person place, was not in any distress. ? Final disposition discussed with the patient who verbalized understanding and agreement. Patient started observation time on 08/01/2024 at 01:55 hours Patient completed observation care on 08/01/2024 at 06:16 hours Total time spent in observation care was 4 hours and 21 minutes. ml Admission/Observation Consideration of admission/observation: Escalation of care including admission/observation considered (No) Discharge Plan Discharge Clinical Impression: Fall, Lethargic, Contusion of left leg Patient Disposition: Home, Self-Care Additional Instructions: Continue taking medications as prescribed by your providers. Follow-up with your doctor in 2 days. Please return to the emergency department if your symptoms get worse or if you develop any symptoms that are concerning to you. Prescriptions: No Action Paxlovid 300 mg (150 mg x 2)-100 mg tablets,dose pack 3 ea PO PER PKG DIR 5 Days Qty: 30 0RF atorvastatin 10 mg tablet 10 mg PO BEDTIME 90 Days Qty: 90 1RF cetirizine [All Day Allergy (cetirizine)] 10 mg tablet 10 mg PO DAILY PRN (Reason: allergy symptoms) 90 Days Qty: 90 1RF cyclobenzaprine 10 mg tablet 10 mg PO TID PRN (Reason: muscle spasm) 30 Days Qty: 90 3RF buspirone 10 mg tablet 10 mg PO BID 30 Days Qty: 60 0RF omeprazole 20 mg capsule,delayed release(DR/EC) 20 mg PO DAILY@0630 30 Days Qty: 30 0RF montelukast 10 mg tablet 10 mg PO DAILY 30 Days Qty: 30 0RF hydroxyzine pamoate 50 mg capsule 50 mg PO BID PRN (Reason: Anxiety) 30 Days Qty: 60 0RF nabumetone 750 mg tablet 750 mg PO BID PRN (Reason: Breakthrough Pain, Moderate) 30 Days Qty: 60 0RF topiramate 25 mg tablet 25 mg PO BEDTIME 30 Days Qty: 30 0RF nicotine (polacrilex) 2 mg Gum 2 mg buccal Q2H PRN (Reason: Nicotine Cravings) 30 Days Qty: 100 0RF ziprasidone HCl 80 mg capsule 160 mg PO BEDTIME 30 Days Qty: 60 0RF Rx Instructions: give with food (meal/snack) trazodone 100 mg tablet 100 mg PO BEDTIME PRN (Reason: Insomnia) 30 Days Qty: 30 0RF meclizine 25 mg tablet 25 mg PO DAILY PRN (Reason: for motion sickness) Qty: 90 2RF albuterol sulfate [Ventolin HFA] 90 mcg/actuation HFA aerosol inhaler 2 puff PO Q4H PRN (Reason: bronchospasm) 30 Days Qty: 18 5RF fluticasone propionate [Flonase Allergy Relief] 50 mcg/actuation spray,suspension 1 spray intranasal DAILY 30 Days Qty: 16 5RF Rx Instructions: administer into each nostril fluticasone propion-salmeterol [Advair HFA] 115-21 mcg/actuation HFA aerosol inhaler 2 puff inhalation BID 30 Days Qty: 12 2RF umeclidinium 62.5 mcg/actuation blister with device 1 inh INHALATION BEDTIME 30 Days Qty: 30 6RF Print Language: Lao
[2024-08-01 04:44] VITALS: PULSE 66; RESP 20; O2SAT 98
--- NOTE | 2024-08-01 04:46 | PC.NURSE ---
plan for tp to stay the night for rest, plan to dc am.
[2024-08-01 06:09] VITALS: BP 123/77; PULSE 80; RESP 20; TEMP 37.2; O2SAT 99
--- NOTE | 2024-08-01 06:09 | PC.NURSE ---
pt awake and alert at this time, pt reports she feels safe for dc. provider aware.
[2024-08-01 06:30] VITALS: BP 123/77; PULSE 80; RESP 20; TEMP 37.2; O2SAT 99
== END 2024-08-01 06:31 | disposition home or self-care (01) ==
PROVIDERS: Emergency Provider Emergency Medicine Emergency Medical Services
DX: S80.12XA Contusion of left lower leg, initial encounter (principal); R53.83 Other fatigue; W19.XXXA Unspecified fall, initial encounter; Y93.9 Activity, unspecified; Y92.9 Unspecified place or not applicable; Y99.8 Other external cause status
CPT/HCPCS: 99281; 99284

== ENCOUNTER 2024-08-02 23:41 | Emergency (ER) | payer OTHER, SELFPAY ==
[2024-08-02 23:49] VITALS: BP 135/88; BP 138/64; PULSE 76; PULSE 94; RESP 14; TEMP 36.2; O2SAT 100; O2SAT 98; BMI 43.0
--- NOTE | 2024-08-03 01:08 | ED.BACK ---
HPI - Back Pain/Injury General Chief Complaint: Back Pain/Injury Stated Complaint: chroice lower back and leg pain, Hx arthritis Time Seen by Provider: 08/03/24 01:08 Source: patient Mode of arrival: ambulatory Limitations: no limitations History of Present Illness ED Provider: HPI Narrative: patient is homeless with history of asthma COPD fatty liver bipolar depression been was seen here yesterday for nonspecific complaints went to [facility] and came back again here as she has no place to go has only 1 meal a day patient noted to be sleeping arrived in the ER with no complaints Related Data Previous Rx's ?Medication ?Instructions ?Recorded albuterol sulfate 90 mcg/actuation 2 puff PO Q4H PRN bronchospasm 30 04/27/24 aerosol inhaler (Ventolin HFA) days #18 grams fluticasone propionate 115 2 puff inhalation BID 30 days #12 04/27/24 mcg-salmeterol 21 mcg/actuation grams HFA inhaler (Advair HFA) fluticasone propionate 50 1 spray intranasal DAILY 30 days 04/27/24 mcg/actuation nasal #16 grams spray,suspension (Flonase Allergy Relief) meclizine 25 mg tablet 25 mg PO DAILY PRN for motion 04/27/24 sickness #90 tabs nicotine (polacrilex) 2 mg gum 2 mg buccal Q2H PRN Nicotine 04/27/24 Cravings 30 days #100 ea trazodone 100 mg tablet 100 mg PO BEDTIME PRN Insomnia 30 04/27/24 days #30 tabs umeclidinium 62.5 mcg/actuation 1 inh inhalation BEDTIME 30 days 04/27/24 blister powder for inhalation #30 ea ziprasidone HCl 80 mg capsule 160 mg (2 x 80 mg) PO BEDTIME 30 04/27/24 days #60 caps nirmatrelvir 300 mg (150 mg 3 ea PO PER PKG DIR 5 days #30 ea 05/12/24 x2)-ritonavir 100 mg tablet,dose pack (Paxlovid) atorvastatin 10 mg tablet 10 mg PO BEDTIME 90 days #90 tabs 06/02/24 cetirizine 10 mg tablet (All Day 10 mg PO DAILY PRN allergy 06/02/24 Allergy (cetirizine)) symptoms 90 days #90 tabs cyclobenzaprine 10 mg tablet 10 mg PO TID PRN muscle spasm 30 06/02/24 days #90 tabs buspirone 10 mg tablet 10 mg PO BID 30 days #60 tabs 06/17/24 montelukast 10 mg tablet 10 mg PO DAILY 30 days #30 tabs 06/17/24 omeprazole 20 mg capsule,delayed 20 mg PO DAILY@0630 30 days #30 06/17/24 release caps hydroxyzine pamoate 50 mg capsule 50 mg PO BID PRN Anxiety 30 days 06/25/24 #60 caps nabumetone 750 mg tablet 750 mg PO BID PRN Breakthrough 06/25/24 Pain, Moderate 30 days #60 tabs topiramate 25 mg tablet 25 mg PO BEDTIME 30 days #30 tabs 06/25/24 Allergies Allergy/AdvReac Type Severity Reaction Status Date / Time animal dander [PET DANDER] Allergy Unknown Itching Verified 08/02/24 23:51 bee pollen [BEE STINGS] Allergy Unknown Swelling Verified 08/02/24 23:51 house dust Allergy Unknown Unknown Verified 08/02/24 23:51 shellfish derived Allergy Unknown Swelling Verified 08/02/24 23:51 [SHELLFISH DERIVED] Seasonal Allergies Allergy Itching Verified 08/02/24 23:51 Review of Systems Review of Systems: Yes all other systems are reviewed and are negative PMFSH Past Medical History Medical History Bipolar disorder Severe asthma with allergic rhinitis Allergic rhinitis Vertigo Surgical History No pertinent past surgical history Family History Family History Father Lung cancer CVD (cardiovascular disease) Mother Past heart attack Diabetes Emphysema lung CVD (cardiovascular disease) Family/Other FH: mental illness Maternal Grandmother No problems noted. Paternal Grandmother No problems noted. Social History Social History Household Members: Significant Other Housing: Apartment Do you presently have visiting nurse or other home services: No Alcohol intake: former Patient Tobacco Use Status: Current everyday Tobacco user Tobacco use type: Cigarette Cigarette Packs Per Day: 1.5 Cigarettes Per Day: 30.0 Years Smoked: 19 Smoked in Last 30 Days: Yes e-Cigarette/Vaping Use: Never Used Second Hand Smoke Exposure: No Use of substances other than those prescribed or required for medical reasons: No Substance Use Type: Crack/Cocaine and Heroin Advance Directives: Yes Advance Directives Information Provided: Yes Advance Directives on File: No Do you have a plan to hurt others: No Plan Patient : No service: No Current occupational status: unemployed Sexual orientation: Straight/Heterosexual Cognitive needs: No Hearing needs: No Vision needs: No Physical Exam Vital Signs: Vital Signs: Last Vital Signs Temp 97.9 F 08/03/24 04:00 Pulse 75 08/03/24 04:00 Resp 16 08/03/24 04:00 BP 130/72 08/03/24 04:00 Pulse Ox 97 08/03/24 04:00 O2 Del Method Room Air 08/03/24 04:00 BMI result Body Mass Index 43.0 Appearance: Alert. Oriented X3. No acute distress. Eyes: PERRLA, No Nystagmus ENT: Pharynx normal. Oral Mucosa moist Neck: Normal inspection. Neck supple. CVS: Normal heart rate and rhythm. Pulses normal. Respiratory: No respiratory distress. Equal air entry bilateral, no wheezing/rales/rhonchi Abdomen: Soft and nontender. Bowel sounds are present, no mass palpable, no CVA tenderness Skin: Skin warm and dry. Normal skin color. Normal skin turgor. Extremities: No lower extremity edema. No calf tenderness Neuro: Oriented X 3. No motor deficit. No sensory deficit.No cerebellar signs , cranial nerves II-XII intact Medical Decision Making Medical Decision Making MDM Narrative: Patient is homeless unable to find place in the [place] requesting case management for placement no medical complaints at this time Discharge Plan Discharge Clinical Impression: Homeless Patient Disposition: Still a Patient Prescriptions: No Action Paxlovid 300 mg (150 mg x 2)-100 mg tablets,dose pack 3 ea PO PER PKG DIR 5 Days Qty: 30 0RF atorvastatin 10 mg tablet 10 mg PO BEDTIME 90 Days Qty: 90 1RF cetirizine [All Day Allergy (cetirizine)] 10 mg tablet 10 mg PO DAILY PRN (Reason: allergy symptoms) 90 Days Qty: 90 1RF cyclobenzaprine 10 mg tablet 10 mg PO TID PRN (Reason: muscle spasm) 30 Days Qty: 90 3RF buspirone 10 mg tablet 10 mg PO BID 30 Days Qty: 60 0RF omeprazole 20 mg capsule,delayed release(DR/EC) 20 mg PO DAILY@0630 30 Days Qty: 30 0RF montelukast 10 mg tablet 10 mg PO DAILY 30 Days Qty: 30 0RF hydroxyzine pamoate 50 mg capsule 50 mg PO BID PRN (Reason: Anxiety) 30 Days Qty: 60 0RF nabumetone 750 mg tablet 750 mg PO BID PRN (Reason: Breakthrough Pain, Moderate) 30 Days Qty: 60 0RF topiramate 25 mg tablet 25 mg PO BEDTIME 30 Days Qty: 30 0RF nicotine (polacrilex) 2 mg Gum 2 mg buccal Q2H PRN (Reason: Nicotine Cravings) 30 Days Qty: 100 0RF ziprasidone HCl 80 mg capsule 160 mg PO BEDTIME 30 Days Qty: 60 0RF Rx Instructions: give with food (meal/snack) trazodone 100 mg tablet 100 mg PO BEDTIME PRN (Reason: Insomnia) 30 Days Qty: 30 0RF meclizine 25 mg tablet 25 mg PO DAILY PRN (Reason: for motion sickness) Qty: 90 2RF albuterol sulfate [Ventolin HFA] 90 mcg/actuation HFA aerosol inhaler 2 puff PO Q4H PRN (Reason: bronchospasm) 30 Days Qty: 18 5RF fluticasone propionate [Flonase Allergy Relief] 50 mcg/actuation spray,suspension 1 spray intranasal DAILY 30 Days Qty: 16 5RF Rx Instructions: administer into each nostril fluticasone propion-salmeterol [Advair HFA] 115-21 mcg/actuation HFA aerosol inhaler 2 puff inhalation BID 30 Days Qty: 12 2RF umeclidinium 62.5 mcg/actuation blister with device 1 inh INHALATION BEDTIME 30 Days Qty: 30 6RF Print Language: Beninese
--- NOTE | 2024-08-03 02:13 | PC.NURSE ---
Patient currently sleeping in a stretcher bed, RR 16, even chest wall rise and fall, no s/s of distress noted.
[2024-08-03 04:00] VITALS: BP 130/72; PULSE 75; RESP 16; TEMP 36.6; O2SAT 97
--- NOTE | 2024-08-03 04:25 | MHC.EDTECH ---
This tech took over care of pt at 0315AM,rounded and introduced self to pt, vitals taken, pt is resting quietly.
[2024-08-03 07:25] VITALS: BP 130/72; PULSE 75; RESP 16; TEMP 36.6; O2SAT 97
--- NOTE | 2024-08-03 08:26 | MHC.CM.ED ---
Received case management consult overnight. Patient d/c'd prior to being seen by case management.
== END 2024-08-03 07:26 | disposition home or self-care (01) ==
PROVIDERS: Emergency Provider Internal Medicine; PCP Internal Medicine
DX: Z03.89 Encounter for observation for other suspected diseases and conditions ruled out (principal); Z59.00 Homelessness unspecified; F31.9 Bipolar disorder, unspecified; Z79.899 Other long term (current) drug therapy
CPT/HCPCS: 99284

== ENCOUNTER 2024-08-04 12:30 | Emergency (ER) | payer OTHER, SELFPAY ==
[2024-08-04 12:34] VITALS: BP 112/74; PULSE 92; O2SAT 96
--- NOTE | 2024-08-04 12:34 | ED_ITS ---
HPI - Abdominal Pain General Chief Complaint: Abdominal Pain Stated Complaint: Lower abdominal pain Related Data Previous Rx's ?Medication ?Instructions ?Recorded albuterol sulfate 90 mcg/actuation 2 puff PO Q4H PRN bronchospasm 30 04/27/24 aerosol inhaler (Ventolin HFA) days #18 grams fluticasone propionate 115 2 puff inhalation BID 30 days #12 04/27/24 mcg-salmeterol 21 mcg/actuation grams HFA inhaler (Advair HFA) fluticasone propionate 50 1 spray intranasal DAILY 30 days 04/27/24 mcg/actuation nasal #16 grams spray,suspension (Flonase Allergy Relief) meclizine 25 mg tablet 25 mg PO DAILY PRN for motion 04/27/24 sickness #90 tabs nicotine (polacrilex) 2 mg gum 2 mg buccal Q2H PRN Nicotine 04/27/24 Cravings 30 days #100 ea trazodone 100 mg tablet 100 mg PO BEDTIME PRN Insomnia 30 04/27/24 days #30 tabs umeclidinium 62.5 mcg/actuation 1 inh inhalation BEDTIME 30 days 04/27/24 blister powder for inhalation #30 ea ziprasidone HCl 80 mg capsule 160 mg (2 x 80 mg) PO BEDTIME 30 04/27/24 days #60 caps nirmatrelvir 300 mg (150 mg 3 ea PO PER PKG DIR 5 days #30 ea 05/12/24 x2)-ritonavir 100 mg tablet,dose pack (Paxlovid) atorvastatin 10 mg tablet 10 mg PO BEDTIME 90 days #90 tabs 06/02/24 cetirizine 10 mg tablet (All Day 10 mg PO DAILY PRN allergy 06/02/24 Allergy (cetirizine)) symptoms 90 days #90 tabs cyclobenzaprine 10 mg tablet 10 mg PO TID PRN muscle spasm 30 06/02/24 days #90 tabs buspirone 10 mg tablet 10 mg PO BID 30 days #60 tabs 06/17/24 montelukast 10 mg tablet 10 mg PO DAILY 30 days #30 tabs 06/17/24 omeprazole 20 mg capsule,delayed 20 mg PO DAILY@0630 30 days #30 06/17/24 release caps hydroxyzine pamoate 50 mg capsule 50 mg PO BID PRN Anxiety 30 days 06/25/24 #60 caps nabumetone 750 mg tablet 750 mg PO BID PRN Breakthrough 06/25/24 Pain, Moderate 30 days #60 tabs topiramate 25 mg tablet 25 mg PO BEDTIME 30 days #30 tabs 06/25/24 Allergies Allergy/AdvReac Type Severity Reaction Status Date / Time animal dander [PET DANDER] Allergy Unknown Itching Verified 08/04/24 23:29 bee pollen [BEE STINGS] Allergy Unknown Swelling Verified 08/04/24 23:29 house dust Allergy Unknown Unknown Verified 08/04/24 23:29 shellfish derived Allergy Unknown Swelling Verified 08/04/24 23:29 [SHELLFISH DERIVED] Seasonal Allergies Allergy Itching Verified 08/04/24 23:29 [facility] Past Medical History Medical History Bipolar disorder Severe asthma with allergic rhinitis Allergic rhinitis Vertigo Surgical History No pertinent past surgical history Family History Family History Father Lung cancer CVD (cardiovascular disease) Mother Past heart attack Diabetes Emphysema lung CVD (cardiovascular disease) Family/Other FH: mental illness Maternal Grandmother No problems noted. Paternal Grandmother No problems noted. Social History Social History Household Members: Significant Other Housing: Apartment Do you presently have visiting nurse or other home services: No Alcohol intake: former Patient Tobacco Use Status: Current everyday Tobacco user Tobacco use type: Cigarette Cigarette Packs Per Day: 1.5 Cigarettes Per Day: 30.0 Years Smoked: 19 e-Cigarette/Vaping Use: Never Used Second Hand Smoke Exposure: No Substance Use Type: Crack/Cocaine and Heroin Advance Directives: No Advance Directives Information Provided: Yes service: No Current occupational status: unemployed Sexual orientation: Straight/Heterosexual Cognitive needs: No Hearing needs: No Vision needs: No Physical Exam ED Vital Signs: BMI result Body Mass Index 42.3 Course Course Course Narrative: 39 yo female with PMH of bipolar, PTSD, depression, HLD, asthma here with c/o lower abdominal pain, nausea, no GIB symptoms. States it hurts to urinate. She is homeless right now and has not eaten or slept in 4 days. She misplaced all of her medications today after taking her AM dose. No fevers, reported. Labs and urine ordered. She denies SI/HI. States pain is 10/10 but has no tenderness to exam and wants to eat. this is a RAPID medical screening exam the rest of the history and physical exam is to be done by the main provider. ELLE 08/04/24 1234pm Discharge Plan Discharge Clinical Impression: Abdominal pain Patient Disposition: Left W/O Completing Treatment Prescriptions: No Action Paxlovid 300 mg (150 mg x 2)-100 mg tablets,dose pack 3 ea PO PER PKG DIR 5 Days Qty: 30 0RF atorvastatin 10 mg tablet 10 mg PO BEDTIME 90 Days Qty: 90 1RF cetirizine [All Day Allergy (cetirizine)] 10 mg tablet 10 mg PO DAILY PRN (Reason: allergy symptoms) 90 Days Qty: 90 1RF cyclobenzaprine 10 mg tablet 10 mg PO TID PRN (Reason: muscle spasm) 30 Days Qty: 90 3RF buspirone 10 mg tablet 10 mg PO BID 30 Days Qty: 60 0RF omeprazole 20 mg capsule,delayed release(DR/EC) 20 mg PO DAILY@0630 30 Days Qty: 30 0RF montelukast 10 mg tablet 10 mg PO DAILY 30 Days Qty: 30 0RF hydroxyzine pamoate 50 mg capsule 50 mg PO BID PRN (Reason: Anxiety) 30 Days Qty: 60 0RF nabumetone 750 mg tablet 750 mg PO BID PRN (Reason: Breakthrough Pain, Moderate) 30 Days Qty: 60 0RF topiramate 25 mg tablet 25 mg PO BEDTIME 30 Days Qty: 30 0RF nicotine (polacrilex) 2 mg Gum 2 mg buccal Q2H PRN (Reason: Nicotine Cravings) 30 Days Qty: 100 0RF ziprasidone HCl 80 mg capsule 160 mg PO BEDTIME 30 Days Qty: 60 0RF Rx Instructions: give with food (meal/snack) trazodone 100 mg tablet 100 mg PO BEDTIME PRN (Reason: Insomnia) 30 Days Qty: 30 0RF meclizine 25 mg tablet 25 mg PO DAILY PRN (Reason: for motion sickness) Qty: 90 2RF albuterol sulfate [Ventolin HFA] 90 mcg/actuation HFA aerosol inhaler 2 puff PO Q4H PRN (Reason: bronchospasm) 30 Days Qty: 18 5RF fluticasone propionate [Flonase Allergy Relief] 50 mcg/actuation spray,suspension 1 spray intranasal DAILY 30 Days Qty: 16 5RF Rx Instructions: administer into each nostril fluticasone propion-salmeterol [Advair HFA] 115-21 mcg/actuation HFA aerosol inhaler 2 puff inhalation BID 30 Days Qty: 12 2RF umeclidinium 62.5 mcg/actuation blister with device 1 inh INHALATION BEDTIME 30 Days Qty: 30 6RF Discharge Date/Time: 08/04/24 20:02
[2024-08-04 12:36] VITALS: BP 139/95; PULSE 91; RESP 19; TEMP 36.6; O2SAT 99; BMI 42.3
--- OUTSIDE RECORDS SUMMARY | 2024-08-04 19:30 | XMS_ITS | Clinical Summary ---
Author Organization [facility] Address [address] [place] [address] Phone Care Team Providers Care Business Performance Analyst Name Role Phone Physician, Pcp Unknown Primary Care Provider Mendy vailable Allergies No known active allergies Encounters Date Type Department Care Team Description 08/02/2024 12:35 AM EDT - 08/02/2024 7:08 AM EDT Emergency [facility] Emergency [address] [place] [address] Discharge Disposition: Home or Self Care from Last 3 Months Social History Tobacco Use Types Packs/Day Years Used Date Smoking Tobacco: Never Assessed Comments Unknown Sex and Gender Information Value Date Recorded Sex Assigned at Not on file Legal Sex Female 12:35 AM EDT Gender Identity Not on file Sexual Orientation Not on file Last Filed Vital Signs Vital Sign Reading Time Taken Comments Blood Pressure 155/90 08/02/2024 12:43 AM EDT Pulse 96 08/02/2024 12:43 AM EDT Temperature 36.9 ??C (98.4 ??F) 08/02/2024 12:43 AM E DT Respiratory Rate 18 08/02/2024 12:43 AM EDT Oxygen Saturation 97% 08/02/2024 12:43 AM EDT Inhaled Oxygen Concentration - - Weight 93.4 kg (206 lb) 08/02/2024 12:43 AM EDT Height 157.5 cm (5' 2 ) 08/02/2024 12:43 AM EDT Body Mass Index 37.68 08/02/2024 12:43 AM EDT Plan of Treatment Health Maintenance Due Date Last Done Comments Breast Cancer Screening 1983 DTaP,Tdap,and Td Vaccines (1 - Tdap) 07/07/2002 Hepatitis B Vaccines (1 of 3 - 19+ 3-dose series) 07/07/2002 Cervical Cancer Screening: P ap Smear 07/07/2004 COVID-19 Vaccine (2023-2 5 season) 2024 Depression Screening 08/02/2024 HIV Screening 08/02/2024 Hepatitis C Screening 08/02/2024 Social Influencers of Health Screening 08/02/2024 Influenza Vaccine (Season Ended) 2025 Cholesterol Screening (Lipid Panel) 01/11/2029 01/12/2024 HIB Vaccines Aged Out No longer eligi ble based on patient's age to complete this topic HPV Vaccines Aged Out No longer eligi ble based on patient's age to complete this topic Hepatitis A Vaccines Aged Out No long er eligible based on patient's age to complete this topic IPV Vaccines Aged Out No longer eligi ble based on patient's age to complete this topic MMR Vaccines Aged Out No longer eligi ble based on patient's age to complete this topic Meningococcal ACWY Vaccine Aged Out N o longer eligible based on patient's age to complete this topic Meningococcal B Vacine Aged Out No lo nger eligible based on patient's age to complete this topic Pneumococcal Vaccine: Pediat rics (0 to 5 Years) and At-Risk Patients (6 to 64 Years) Aged Out No longer eligi ble based on patient's age to complete this topic RSV Immunization Patients Un roman 20 months Aged Out No longer eligible b ased on patient's age to complete this topic Varicella Vaccines Aged Out No longer eligible based on patient's age to complete this topic Insurance [facility] Member Subscriber Plan / Payer (Ef fective 2024-Present) Name:Samaria Corley Member ID:[id number] Relation to Subscriber:Self Name:Samaria Corley Subscriber ID:[id number] Payer ID:[id number] Group ID:Not on file Type:Not on file Address: [facility] [address] [address] Care Teams Business Performance Analyst Relationship Specialty Start Date End Date Physician, Pcp Unknown PCP - General 08/02/24
--- OUTSIDE RECORDS SUMMARY | 2024-08-04 19:30 | XMS_ITS | Clinical Summary ---
Author Organization [facility] Address [address] [place] [address] Care Team Providers Care Energy Conservation Technician Name Role Phone Roxie Guevara MD Primary Care Provider [phone] Allergies Active Allergy Reactions Criticality Noted Date Comments Bee Venom Anaphylaxis High 01/10/2024 Shellfish-Derived Products Anaphylaxis High 01/10/20 24 Medications Medication Sig Dispensed Refills Start Date End Date Status acetaminophen (TYLENOL) 650 MG CR tablet Take 1 tablet (650 mg total) by mouth 3 times daily (every 8 hours) as needed. for pain 12/05/2023 Active Ventolin HFA 108 (90 Base) MCG/ACT inhaler Inhale 2 puffs every 4 (four) hours as needed for wheezing or shortness of breath. 12/15/2023 Active amLODIPine (NORVASC) 5 MG tablet 01/08/2024 Active atorvastatin (LIPITOR) 10 MG tablet Take 1 tablet (10 mg total) by mouth nightly. 12/23/2023 Active busPIRone (BUSPAR) 30 MG tablet Take 1 tablet (30 mg total) by mouth 2 times a day. 12/05/2023 Active cyclobenzaprine (FLEXERIL) 10 MG tablet Take 1 tablet (10 mg total) by mouth 3 (three) times a day as needed. for muscle spams 12/05/2023 Active fluticasone (FloNASE) 50 mcg/spray nasal spray INSTILL 1 SPRAY IN EACH NOSTRIL ONCE DAILY 12/23/2023 Active Advair HFA 115-21 MCG/ACT inhaler INHALE 2 PUFFS TWICE DAILY. RINSE MOUTH AFTER USING. 01/06/2024 Active meclizine (ANTIVERT) 25 MG tablet TAKE 1 TABLET BY MOUTH DAILY NEEDED FOR MOTION SICKNESS 12/23/2023 Active montelukast (SINGULAIR) 10 MG tablet Take 1 tablet (10 mg total) by mouth. 12/23/2023 Active OMEprazole (PriLOSEC) 20 MG capsule Take by mouth. 12/23/2023 Active sertraline (ZOLOFT) 50 MG tablet Take 1 tablet (50 mg total) by mouth every morning. 01/06/2024 Active topiramate (TOPAMAX) 50 MG tablet Take 1 tablet (50 mg total) by mouth nightly. 12/05/2023 Active traZODone (DESYREL) 100 MG tablet TAKE 1 OR 2 TABLETS BY MOUTH EVERY DAY AT BEDTIME NEEDED 12/05/2023 Active LORazepam (ATIVAN) 2 MG tabletIndications:Al cohol use Take 1 tablet (2 mg total) by mouth every 4 (four) hours. 2 tablet 01/13/2024 Active LORazepam (ATIVAN) 2 MG tabletIndications:Al cohol use Take 1 tablet (2 mg total) by mouth every 8 (eight) hours around the clock. Do not start before January 14, 2024. 3 tablet 01/14/2024 Active LORazepam (ATIVAN) 2 MG tabletIndications:Al cohol use Take 1 tablet (2 mg total) by mouth every 12 (twelve) hours around the clock. Do not start before January 14, 2024. 2 tablet 01/14/2024 Active ziprasidone (GEODON) 40 MG capsuleIndications:B ipolar I disorder, recurrent manic episode (HCC) Take 1 capsule (40 mg total) by mouth 2 (two) times a day with meals. 01/13/2024 Active Active Problems Problem Noted Date Diagnosed Date Bipolar 1 disorder 01/11/2024 PTSD (post-traumatic stress disorder) 01/11/2024 Alcohol use 01/11/2024 Altered mental status 01/11/2024 Social History Tobacco Use Types Packs/Day Years Used Date Smoking Tobacco: Never Assessed Tobacco Cessation:Counseling Given: Not Answered [facility] Utilities Answer Date Recorded In the past 12 months has [employer], [employer], [employer], or water [employer] threatened to shut off services in your home? No 01/13/2024 AUDIT-C Answer Date Recorded Q1: How often do you have a drink containing alcohol? 4 or more times a week 01/11/2024 Q2: How many drinks containi ng alcohol do you have on a typical day when you are drinking? 10 or more Q3: How often do you have si x or more drinks on one occasion? Daily or almost daily 01/11/2024 Overall Financial Resource Strain (CARDIA) Answe r Date Recorded How hard is it for you to pa y for the very basics like food, housing, medical care, and heating? Hard 01/13/2024 Hunger Vital Sign Answer Date Recorded Within the past 12 months, y ou worried that your food would run out before you got the money to buy more. Never true 01/13/20 24 Within the past 12 months, t he food you bought just didn't last and you didn't have money to get more. Never true 01/13/2024 PRAPARE - Transportation Answer Date Re corded In the past 12 months, has l ack of transportation kept you from medical appointments or from getting medications? No 01/03 In the past 12 months, has l ack of transportation kept you from meetings, work, or from getting things needed for daily living? No 01/13/2024 Housing Stability Vital Sign Answer Nav e Recorded In the last 12 months, was t here a time when you were not able to pay the mortgage or rent on time? No 01/13/2024 In the last 12 months, how many places have you lived? 1 01/13/2024 In the last 12 months, was t here a time when you did not have a steady place to sleep or slept in a snf (including now)? No 01/13/2024 Sex and Gender Information Value Date Recorded Sex Assigned at Female 01/10/2024 5:39 PM EDT Gender Identity Female 01/10/2024 5:39 PM EDT Sexual Orientation Heterosexual (straight) 01/09 5:39 PM EDT Last Filed Vital Signs Vital Sign Reading Time Taken Comments Blood Pressure 133/89 01/13/2024 12:20 PM EDT Pulse 116 01/13/2024 12:20 PM EDT Temperature 37.6 ??C (99.7 ??F) 01/13/2024 12:20 PM E DT Respiratory Rate 18 01/13/2024 12:20 PM EDT Oxygen Saturation 98% 01/13/2024 12:20 PM EDT Inhaled Oxygen Concentration - - Weight 123 kg (270 lb 11.6 oz) 01/12/2024 2:29 P M EDT Height - - Body Mass Index - - Plan of Treatment Health Maintenance Due Date Last Done Comments Hepatitis C Virus Screening 1983 HIV Screening 07/07/1996 DTaP/Tdap/Td Vaccines (1 - Tdap) 07/07/2002 Hepatitis B Vaccines (1 of 3 - 19+ 3-dose series) 07/07/2002 Pap Smear (Ages 21-65) 07/07/2004 Mammogram 2023 Influenza Vaccine 12/04/2023 COVID-19 Vaccine ( - 2023-2 5 season) 2024 HPV Vaccines Aged Out No longer eligi ble based on patient's age to complete this topic Pneumococcal Vaccine: Pediat elton (0-5 Years) and At-Risk Patients (6 to 49 Years) Aged Out No longer eligible b ased on patient's age to complete this topic Advance Directives * Full Code (Latest Code Status on File) Date Activated Date Inactivated Comments 01/11/2024 12:44 PM Care Teams Energy Conservation Technician Relationship Specialty Start Date End Date Roxie Guevara MD [address] [place] [address] PCP - General Family Medicine 01/13/24
== END 2024-08-04 20:02 | disposition left against medical advice (07) ==
PROVIDERS: Emergency Provider Emergency Medicine
DX: R10.30 Lower abdominal pain, unspecified (principal); R11.0 Nausea; F17.210 Nicotine dependence, cigarettes, uncomplicated; Z59.00 Homelessness unspecified
CPT/HCPCS: 99281

== ENCOUNTER 2024-08-04 23:17 | Emergency (ER) | payer OTHER, SELFPAY ==
[2024-08-04 23:25] VITALS: BP 144/98; PULSE 93; O2SAT 99
[2024-08-04 23:28] VITALS: BP 137/87; PULSE 87; RESP 20; TEMP 36.3; O2SAT 99; BMI 37.7
--- NOTE | 2024-08-05 01:54 | ED_ITS ---
HPI - General Adult General Chief complaint: Extremity Problem Stated complaint: BACK,STOMACH, KNEE PAIN Time Seen by Provider: 08/05/24 01:37 Source: patient Mode of arrival: ambulatory Limitations: no limitations History of Present Illness ED Provider: HPI narrative: Patient is homeless been here multiple times for last 3 days was earlier during daytime for nonspecific abdominal pain comes back again as complaining of leg pain patient accept that she is homeless last night also she was here when advised to see case management patient refused Related Data Previous Rx's ?Medication ?Instructions ?Recorded albuterol sulfate 90 mcg/actuation 2 puff PO Q4H PRN bronchospasm 30 04/27/24 aerosol inhaler (Ventolin HFA) days #18 grams fluticasone propionate 115 2 puff inhalation BID 30 days #12 04/27/24 mcg-salmeterol 21 mcg/actuation grams HFA inhaler (Advair HFA) fluticasone propionate 50 1 spray intranasal DAILY 30 days 04/27/24 mcg/actuation nasal #16 grams spray,suspension (Flonase Allergy Relief) meclizine 25 mg tablet 25 mg PO DAILY PRN for motion 04/27/24 sickness #90 tabs nicotine (polacrilex) 2 mg gum 2 mg buccal Q2H PRN Nicotine 04/27/24 Cravings 30 days #100 ea trazodone 100 mg tablet 100 mg PO BEDTIME PRN Insomnia 30 04/27/24 days #30 tabs umeclidinium 62.5 mcg/actuation 1 inh inhalation BEDTIME 30 days 04/27/24 blister powder for inhalation #30 ea ziprasidone HCl 80 mg capsule 160 mg (2 x 80 mg) PO BEDTIME 30 04/27/24 days #60 caps nirmatrelvir 300 mg (150 mg 3 ea PO PER PKG DIR 5 days #30 ea 05/12/24 x2)-ritonavir 100 mg tablet,dose pack (Paxlovid) atorvastatin 10 mg tablet 10 mg PO BEDTIME 90 days #90 tabs 06/02/24 cetirizine 10 mg tablet (All Day 10 mg PO DAILY PRN allergy 06/02/24 Allergy (cetirizine)) symptoms 90 days #90 tabs cyclobenzaprine 10 mg tablet 10 mg PO TID PRN muscle spasm 30 06/02/24 days #90 tabs buspirone 10 mg tablet 10 mg PO BID 30 days #60 tabs 06/17/24 montelukast 10 mg tablet 10 mg PO DAILY 30 days #30 tabs 06/17/24 omeprazole 20 mg capsule,delayed 20 mg PO DAILY@0630 30 days #30 06/17/24 release caps hydroxyzine pamoate 50 mg capsule 50 mg PO BID PRN Anxiety 30 days 06/25/24 #60 caps nabumetone 750 mg tablet 750 mg PO BID PRN Breakthrough 06/25/24 Pain, Moderate 30 days #60 tabs topiramate 25 mg tablet 25 mg PO BEDTIME 30 days #30 tabs 06/25/24 Allergies Allergy/AdvReac Type Severity Reaction Status Date / Time animal dander [PET DANDER] Allergy Unknown Itching Verified 08/04/24 23:29 bee pollen [BEE STINGS] Allergy Unknown Swelling Verified 08/04/24 23:29 house dust Allergy Unknown Unknown Verified 08/04/24 23:29 shellfish derived Allergy Unknown Swelling Verified 08/04/24 23:29 [SHELLFISH DERIVED] Seasonal Allergies Allergy Itching Verified 08/04/24 23:29 Review of Systems Review of Systems: Yes all other systems are reviewed and are negative PMFSH Past Medical History Medical History Bipolar disorder Severe asthma with allergic rhinitis Allergic rhinitis Vertigo Surgical History No pertinent past surgical history Family History Family History Father Lung cancer CVD (cardiovascular disease) Mother Past heart attack Diabetes Emphysema lung CVD (cardiovascular disease) Family/Other FH: mental illness Maternal Grandmother No problems noted. Paternal Grandmother No problems noted. Social History Social History Household Members: Significant Other Housing: Apartment Do you presently have visiting nurse or other home services: No Alcohol intake: former Patient Tobacco Use Status: Current everyday Tobacco user Tobacco use type: Cigarette Cigarette Packs Per Day: 1.5 Cigarettes Per Day: 30.0 Years Smoked: 19 e-Cigarette/Vaping Use: Never Used Second Hand Smoke Exposure: No Substance Use Type: Crack/Cocaine and Heroin Advance Directives: No Advance Directives Information Provided: Yes service: No Current occupational status: unemployed Sexual orientation: Straight/Heterosexual Cognitive needs: No Hearing needs: No Vision needs: No Physical Exam ED Vital Signs: Vital Signs - 24 hr 08/04/24 23:28 08/05/24 03:05 08/05/24 03:11 Temperature 97.3 F 98.9 F Pulse Rate 87 68 68 Respiratory Rate 20 16 16 Blood Pressure 137/87 125/81 125/81 Pulse Oximetry 99 92 92 Oxygen Delivery Method Room Air Room Air Room Air BMI result Body Mass Index 37.7 Appearance: Alert. Oriented X3. No acute distress. Eyes: No pallor or ENT: Pharynx normal. Oral Mucosa moist Neck: Normal inspection. Neck supple. CVS: Normal heart rate and rhythm. Pulses normal. Respiratory: No respiratory distress. Equal air entry bilateral, no wheezing/rales/rhonchi Abdomen: Soft and nontender. Bowel sounds are present, no mass palpable, no CVA tenderness Skin: Skin warm and dry. Normal skin color. Normal skin turgor. Extremities: No lower extremity edema. No calf tenderness Neuro: Oriented X 3. No motor deficit. No sensory deficit.No cerebellar signs , cranial nerves II-XII intact Medications Administered Discontinued Medications Generic Name Dose Route Start Last Admin Trade Name Freq PRN Reason Stop Dose Admin Ibuprofen 600 mg 08/05/24 03:01 08/05/24 03:10 Ibuprofen 600 Mg Tablet PO 08/05/24 03:02 600 mg ONCE ONE Administration Discharge Plan Discharge Clinical Impression: Homeless Patient Disposition: Home, Self-Care Instructions: Leg Pain (ED) Additional Instructions: Go to skilled nursing to stay in the night as instructed stop Standing for long hours Prescriptions: No Action Paxlovid 300 mg (150 mg x 2)-100 mg tablets,dose pack 3 ea PO PER PKG DIR 5 Days Qty: 30 0RF atorvastatin 10 mg tablet 10 mg PO BEDTIME 90 Days Qty: 90 1RF cetirizine [All Day Allergy (cetirizine)] 10 mg tablet 10 mg PO DAILY PRN (Reason: allergy symptoms) 90 Days Qty: 90 1RF cyclobenzaprine 10 mg tablet 10 mg PO TID PRN (Reason: muscle spasm) 30 Days Qty: 90 3RF buspirone 10 mg tablet 10 mg PO BID 30 Days Qty: 60 0RF omeprazole 20 mg capsule,delayed release(DR/EC) 20 mg PO DAILY@0630 30 Days Qty: 30 0RF montelukast 10 mg tablet 10 mg PO DAILY 30 Days Qty: 30 0RF hydroxyzine pamoate 50 mg capsule 50 mg PO BID PRN (Reason: Anxiety) 30 Days Qty: 60 0RF nabumetone 750 mg tablet 750 mg PO BID PRN (Reason: Breakthrough Pain, Moderate) 30 Days Qty: 60 0RF topiramate 25 mg tablet 25 mg PO BEDTIME 30 Days Qty: 30 0RF nicotine (polacrilex) 2 mg Gum 2 mg buccal Q2H PRN (Reason: Nicotine Cravings) 30 Days Qty: 100 0RF ziprasidone HCl 80 mg capsule 160 mg PO BEDTIME 30 Days Qty: 60 0RF Rx Instructions: give with food (meal/snack) trazodone 100 mg tablet 100 mg PO BEDTIME PRN (Reason: Insomnia) 30 Days Qty: 30 0RF meclizine 25 mg tablet 25 mg PO DAILY PRN (Reason: for motion sickness) Qty: 90 2RF albuterol sulfate [Ventolin HFA] 90 mcg/actuation HFA aerosol inhaler 2 puff PO Q4H PRN (Reason: bronchospasm) 30 Days Qty: 18 5RF fluticasone propionate [Flonase Allergy Relief] 50 mcg/actuation spray,suspension 1 spray intranasal DAILY 30 Days Qty: 16 5RF Rx Instructions: administer into each nostril fluticasone propion-salmeterol [Advair HFA] 115-21 mcg/actuation HFA aerosol inhaler 2 puff inhalation BID 30 Days Qty: 12 2RF umeclidinium 62.5 mcg/actuation blister with device 1 inh INHALATION BEDTIME 30 Days Qty: 30 6RF Interventions: ED Discharge Assessment Last Done: 08/05/24 03:11 Discharge Date/Time: 08/05/24 03:11 Print Language: Tamazight
[2024-08-05 03:05] VITALS: BP 125/81; PULSE 68; RESP 16; O2SAT 92
[2024-08-05] MEDS: Ibuprofen 600 MG TABLET PO (03:10)
[2024-08-05 03:11] VITALS: BP 125/81; PULSE 68; RESP 16; TEMP 37.2; O2SAT 92
== END 2024-08-05 03:11 | disposition home or self-care (01) ==
PROVIDERS: Emergency Provider Internal Medicine
DX: M79.606 Pain in leg, unspecified (principal); Z59.00 Homelessness unspecified; Z79.899 Other long term (current) drug therapy; F17.210 Nicotine dependence, cigarettes, uncomplicated
CPT/HCPCS: 99283

== ENCOUNTER 2024-08-11 21:53 | Emergency (ER) | payer OTHER, SELFPAY ==
[2024-08-11 21:59] VITALS: BP 122/71; PULSE 96; RESP 18; TEMP 36.5; O2SAT 98
[2024-08-11 22:05] VITALS: BP 192/108; PULSE 98; O2SAT 97; BMI 36.6
--- NOTE | 2024-08-11 22:06 | MHC.EDTECH ---
Patients cart is located with security
--- OUTSIDE RECORDS SUMMARY | 2024-08-11 22:37 | XMS_ITS | Clinical Summary ---
Author Organization [facility] Address [address] [place] [address] Care Team Providers Care Radiator Tester Name Role Phone Roxie Guevara MD Primary Care Provider [phone] Allergies Active Allergy Reactions Criticality Noted Date [...] Never Assessed Tobacco Cessation:Counseling Given: Not Answered [facility] Utilities Answer Date Recorded In the past 12 months has [employer], [employer], or water [employer] threatened to shut off services in your [...] place to sleep or slept in a fci (including now)? No 01/13/2024 Sex and Gender [...] Inactivated Comments 01/11/2024 12:44 PM Care Teams Radiator Tester Relationship Specialty Start Date End Date Roxie Guevara MD [address] [place] [address] PCP - General Family Medicine 01/13/24
--- OUTSIDE RECORDS SUMMARY | 2024-08-11 22:37 | XMS_ITS | Clinical Summary ---
Author Organization [facility] Address [address] [place] [address] Phone Care Team Providers Care Cone Marker Name Role Phone Physician, Pcp Unknown Primary Care Provider Mendy vailable Allergies No known active allergies Encounters Date Type Department Care Team Description 08/02/2024 12:35 AM EDT - 08/02/2024 7:08 AM EDT Emergency [facility] Emergency [address] [place] [address] Discharge Disposition: Home or Self [...] age to complete this topic Meningococcal B Vaccine Aged Out No l onger eligible based on patient's age to complete [...] patient's age to complete this topic Insurance [facility] Member Subscriber Plan / Payer (Ef fective 2024-Present) Name:Samaria Corley Member ID:[id number] Relation to Subscriber:Self Name:Samaria Corley Subscriber ID:[id number] Payer ID:[id number] Group ID:Not on file Type:Not on file Address: [facility] [address] [address] Care Teams Cone Marker Relationship Specialty Start Date End Date Physician, Pcp Unknown PCP - General 08/02/24
--- NOTE | 2024-08-11 23:15 | MHC.EDTECH ---
assumed care of pt @[id number]
--- NOTE | 2024-08-11 23:20 | ED_ITS ---
HPI - General Adult General Chief complaint: Extremity Injury, Lower Stated complaint: 02/11 leg pain Time Seen by Provider: 08/11/24 23:15 Source: patient and EMS Mode of arrival: EMS Limitations: no limitations History of Present Illness ED Provider: Dr. Lola Sanders HPI narrative: Patient comes to the emergency room by ambulance. Seems that patient has lacked an ambulance to pick her up and bring her to the emergency room. Patient complaining of leg pain calf pain since yesterday and also report the dysuria. When I spoke to the patient, patient states that she does not have any pain in the abdomen or in her legs and states that she just wants to be left alone and sleep. Related Data Previous Rx's ?Medication ?Instructions ?Recorded albuterol sulfate 90 mcg/actuation 2 puff PO Q4H PRN bronchospasm 30 04/27/24 aerosol inhaler (Ventolin HFA) days #18 grams fluticasone propionate 115 2 puff inhalation BID 30 days #12 04/27/24 mcg-salmeterol 21 mcg/actuation grams HFA inhaler (Advair HFA) fluticasone propionate 50 1 spray intranasal DAILY 30 days 04/27/24 mcg/actuation nasal #16 grams spray,suspension (Flonase Allergy Relief) meclizine 25 mg tablet 25 mg PO DAILY PRN for motion 04/27/24 sickness #90 tabs nicotine (polacrilex) 2 mg gum 2 mg buccal Q2H PRN Nicotine 04/27/24 Cravings 30 days #100 ea trazodone 100 mg tablet 100 mg PO BEDTIME PRN Insomnia 30 04/27/24 days #30 tabs umeclidinium 62.5 mcg/actuation 1 inh inhalation BEDTIME 30 days 04/27/24 blister powder for inhalation #30 ea ziprasidone HCl 80 mg capsule 160 mg (2 x 80 mg) PO BEDTIME 30 04/27/24 days #60 caps nirmatrelvir 300 mg (150 mg 3 ea PO PER PKG DIR 5 days #30 ea 05/12/24 x2)-ritonavir 100 mg tablet,dose pack (Paxlovid) atorvastatin 10 mg tablet 10 mg PO BEDTIME 90 days #90 tabs 06/02/24 cetirizine 10 mg tablet (All Day 10 mg PO DAILY PRN allergy 06/02/24 Allergy (cetirizine)) symptoms 90 days #90 tabs cyclobenzaprine 10 mg tablet 10 mg PO TID PRN muscle spasm 30 06/02/24 days #90 tabs buspirone 10 mg tablet 10 mg PO BID 30 days #60 tabs 06/17/24 omeprazole 20 mg capsule,delayed 20 mg PO DAILY@0630 30 days #30 06/17/24 release caps hydroxyzine pamoate 50 mg capsule 50 mg PO BID PRN Anxiety 30 days 06/25/24 #60 caps nabumetone 750 mg tablet 750 mg PO BID PRN Breakthrough 06/25/24 Pain, Moderate 30 days #60 tabs topiramate 25 mg tablet 25 mg PO BEDTIME 30 days #30 tabs 06/25/24 montelukast 10 mg tablet 10 mg PO DAILY 30 days #30 tabs 08/08/24 Allergies Allergy/AdvReac Type Severity Reaction Status Date / Time animal dander [PET DANDER] Allergy Unknown Itching Verified 08/11/24 22:07 bee pollen [BEE STINGS] Allergy Unknown Swelling Verified 08/11/24 22:07 house dust Allergy Unknown Unknown Verified 08/11/24 22:07 shellfish derived Allergy Unknown Swelling Verified 08/11/24 22:07 [SHELLFISH DERIVED] Seasonal Allergies Allergy Itching Verified 08/11/24 22:07 Review of Systems Review of Systems: Constitutional : No Weight loss, No Fever, No Chills, No Night Sweats, No Fatigue, No Malaise ENT/Mouth : No Hearing loss, No Ear Pain, No Nasal Congestion, No Sinus Pain, No Hoarseness, No sore throat, No Rhinorrhea, No Swallowing Difficulty Eyes: No Eye Pain, No Swelling, No Redness, No Foreign Body, No Discharge, No Vision Changes Cardiovascular : No Chest Pain, No SOB, No Dyspnea on Exertion, No Orthopnea, No Edema, No Palpitations Respiratory : No Cough, No Sputum, No Wheezing, No Smoke Exposure, No Dyspnea Gastrointestinal : No Nausea, No Vomiting, No Diarrhea, No Constipation, No abd ominal Pain, No Hematochezia, No Melena Genitourinary : no irregular bleeding, No Dysuria, No Urinary Frequency, No Hematuria, No Urinary Incontinence, No Urgency, No Flank Pain, No Urinary Flow Changes, No Hesitancy Musculoskeletal : Initially complained to EMS about leg pain but she denied any pain to me, No Myalgias, No Joint Swelling Skin : No Skin Lesions, No rash Neuro : No Weakness, No Numbness, No Paresthesias, No Loss of Consciousness, No Dizziness, No Headache Psych : No Anxiety/Panic, No Depression, No SI/HI/AH/VH, No Social Issues, Heme/Lymph: No Bruising, No Bleeding,No Lymphadenopathy Endocrine : No Polyuria, No Polydipsia, No Temperature Intolerance [facility] Past Medical History Medical History Bipolar disorder Severe asthma with allergic rhinitis Allergic rhinitis Vertigo Surgical History No pertinent past surgical history Family History Family History Father Lung cancer CVD (cardiovascular disease) Mother Past heart attack Diabetes Emphysema lung CVD (cardiovascular disease) Family/Other FH: mental illness Maternal Grandmother No problems noted. Paternal Grandmother No problems noted. Social History Social History Household Members: Significant Other Housing: Apartment Do you presently have visiting nurse or other home services: No Alcohol intake: former Patient Tobacco Use Status: Current everyday Tobacco user Tobacco use type: Cigarette Cigarette Packs Per Day: 1.5 Cigarettes Per Day: 30.0 Years Smoked: 19 e-Cigarette/Vaping Use: Never Used Second Hand Smoke Exposure: No Substance Use Type: Crack/Cocaine and Heroin Advance Directives: No Advance Directives Information Provided: No Do you have a plan to hurt others: No Plan service: No Current occupational status: unemployed Sexual orientation: Straight/Heterosexual Cognitive needs: No Hearing needs: No Vision needs: No Physical Exam ED Vital Signs: Vital Signs - 24 hr 08/11/24 21:59 Temperature 97.7 F Pulse Rate 96 Respiratory Rate 18 Blood Pressure 122/71 Pulse Oximetry 98 Oxygen Delivery Method Room Air BMI result Body Mass Index 36.6 Const Other: Appearance: Alert. Oriented X3. Tired, sleepy but easily arousable, No acute distress. Eyes: Pupils equal, round and reactive to light. ENT: Pharynx normal. Neck: Normal inspection. Neck supple. No lymph nodes noted. No crepitus CVS: Normal heart rate and rhythm. Pulses normal. Normal S1 and S2 Respiratory: No respiratory distress. Breath sounds normal. No Wheezing. No rales Abdomen: Soft and nontender. No rigidity. No distention. Skin: Skin warm and dry. Normal skin color. Normal skin turgor. Extremities: No lower extremity edema. No Lacerations. No Rash. No swelling, no erythema, no pain to palpation or on squeezing on the calves Neuro: Oriented X 3. No motor deficit. No sensory deficit. Moving all extremities. No slurred speech. CN 2 through 12 grossly intact Psych: calm, cooperative, normal affect Medical Decision Making Medical Decision Making MDM Narrative: Patient denies any medical problems, denies any pain. Patient states that she has wants to sleep. Patient declined any further workup. Discharge Plan Discharge Clinical Impression: Musculoskeletal pain Patient Disposition: Home, Self-Care Instructions: Musculoskeletal Pain (ED) Additional Instructions: Please follow-up with your primary care physician tomorrow. If you have any worsening or new symptoms, please return to the emergency room or call 911 Prescriptions: No Action Paxlovid 300 mg (150 mg x 2)-100 mg tablets,dose pack 3 ea PO PER PKG DIR 5 Days Qty: 30 0RF atorvastatin 10 mg tablet 10 mg PO BEDTIME 90 Days Qty: 90 1RF cetirizine [All Day Allergy (cetirizine)] 10 mg tablet 10 mg PO DAILY PRN (Reason: allergy symptoms) 90 Days Qty: 90 1RF cyclobenzaprine 10 mg tablet 10 mg PO TID PRN (Reason: muscle spasm) 30 Days Qty: 90 3RF buspirone 10 mg tablet 10 mg PO BID 30 Days Qty: 60 0RF omeprazole 20 mg capsule,delayed release(DR/EC) 20 mg PO DAILY@0630 30 Days Qty: 30 0RF hydroxyzine pamoate 50 mg capsule 50 mg PO BID PRN (Reason: Anxiety) 30 Days Qty: 60 0RF nabumetone 750 mg tablet 750 mg PO BID PRN (Reason: Breakthrough Pain, Moderate) 30 Days Qty: 60 0RF topiramate 25 mg tablet 25 mg PO BEDTIME 30 Days Qty: 30 0RF montelukast 10 mg tablet 10 mg PO DAILY 30 Days Qty: 30 1RF nicotine (polacrilex) 2 mg Gum 2 mg buccal Q2H PRN (Reason: Nicotine Cravings) 30 Days Qty: 100 0RF ziprasidone HCl 80 mg capsule 160 mg PO BEDTIME 30 Days Qty: 60 0RF Rx Instructions: give with food (meal/snack) trazodone 100 mg tablet 100 mg PO BEDTIME PRN (Reason: Insomnia) 30 Days Qty: 30 0RF meclizine 25 mg tablet 25 mg PO DAILY PRN (Reason: for motion sickness) Qty: 90 2RF albuterol sulfate [Ventolin HFA] 90 mcg/actuation HFA aerosol inhaler 2 puff PO Q4H PRN (Reason: bronchospasm) 30 Days Qty: 18 5RF fluticasone propionate [Flonase Allergy Relief] 50 mcg/actuation spray,suspension 1 spray intranasal DAILY 30 Days Qty: 16 5RF Rx Instructions: administer into each nostril fluticasone propion-salmeterol [Advair HFA] 115-21 mcg/actuation HFA aerosol inhaler 2 puff inhalation BID 30 Days Qty: 12 2RF umeclidinium 62.5 mcg/actuation blister with device 1 inh INHALATION BEDTIME 30 Days Qty: 30 6RF Print Language: Polish
[2024-08-12 00:55] VITALS: BP 124/69; PULSE 86; RESP 16; TEMP 36.8; O2SAT 94
[2024-08-12 06:00] VITALS: BP 141/87; PULSE 88; RESP 16; TEMP 37.2; O2SAT 96
[2024-08-12 06:07] VITALS: BP 141/87; PULSE 88; RESP 16; TEMP 37.2; O2SAT 96
== END 2024-08-12 06:18 | disposition home or self-care (01) ==
PROVIDERS: Emergency Provider Emergency Medicine
DX: M79.10 Myalgia, unspecified site (principal); R30.0 Dysuria; F17.210 Nicotine dependence, cigarettes, uncomplicated
CPT/HCPCS: 99283

== ENCOUNTER 2024-08-13 00:27 | Emergency (ER) | payer OTHER, SELFPAY ==
[2024-08-13 00:37] VITALS: BMI 30.9
--- NOTE | 2024-08-13 00:42 | PC.NURSE ---
Pt sent out to via EMS, refused to come to triage to be assessed. Immediately layed down on lounge next to fish tank. Refused vitals from EMS as well. brake holder notified.
--- OUTSIDE RECORDS SUMMARY | 2024-08-13 05:56 | XMS_ITS | Clinical Summary ---
Author Organization [facility] Address [address] [place] [address] Phone Care Team Providers Care Patient Safety Attendant Name Role Phone Physician, Pcp Unknown Primary Care Provider Mendy vailable Allergies No known active allergies Encounters Date Type Department Care Team Description 08/02/2024 12:35 AM EDT - 08/02/2024 7:08 AM EDT Emergency [facility] Emergency [address] [place] [address] Discharge Disposition: Home or Self [...] patient's age to complete this topic Insurance [facility] Member Subscriber Plan / Payer (Ef fective 2024-Present) Name:Samaria Corley Member ID:[id number] Relation to Subscriber:Self Name:Samaria Corley Subscriber ID:[id number] Payer ID:[id number] Group ID:Not on file Type:Not on file Address: [facility] [address] [address] Care Teams Patient Safety Attendant Relationship Specialty Start Date End Date Physician, Pcp Unknown PCP - General 08/02/24
--- OUTSIDE RECORDS SUMMARY | 2024-08-13 05:56 | XMS_ITS | Clinical Summary ---
Author Organization [facility] Address [address] [place] [address] Care Team Providers Care Mailhouse Operator Name Role Phone Roxie Guevara MD Primary Care Provider [phone] Allergies Active Allergy Reactions Criticality Noted Date [...] Never Assessed Tobacco Cessation:Counseling Given: Not Answered [facility] Utilities Answer Date Recorded In the past 12 months has [employer], [employer], [employer], or water [employer] threatened to shut off services in your [...] place to sleep or slept in a intermediate (including now)? No 01/13/2024 Sex and Gender [...] Inactivated Comments 01/11/2024 12:44 PM Care Teams Mailhouse Operator Relationship Specialty Start Date End Date Roxie Guevara MD [address] [place] [address] PCP - General Family Medicine 01/13/24
== END 2024-08-13 05:57 | disposition left against medical advice (07) ==
PROVIDERS: Emergency Provider Emergency Medicine
DX: R10.2 Pelvic and perineal pain (principal); Z59.00 Homelessness unspecified
CPT/HCPCS: 99281

== ENCOUNTER 2024-08-13 08:53 | Emergency (ER) | payer OTHER, SELFPAY ==
[2024-08-13 09:00] VITALS: BP 147/85; PULSE 94; RESP 18; TEMP 36.8; O2SAT 98; BMI 40.4
--- NOTE | 2024-08-13 09:04 | PC.NURSE ---
pt changed to [facility]win daniels. belongings at bedside.
--- NOTE | 2024-08-13 09:25 | ED_ITS ---
HPI - General Adult General Chief complaint: Altered Mental Status Stated complaint: ETOH Time Seen by Provider: 08/13/24 09:25 Source: patient and EMS Mode of arrival: EMS Limitations: no limitations History of Present Illness ED Provider: Adwoa Vasquez PA-C HPI narrative: Patient is a 39 year old assigned female at with a history of depression, PTSD, bipolar disorder, substance use / abuse presenting to the emergency department today with [place]standers. Patient states that she has no complaints and she wants to sleep. Patient denies any dizziness, lightheadedness, abdominal pain, nausea, vomiting, fever, chills, blurry vision, double vision, loss of vision, chest pain, difficulty breathing, shortness of breath, back pain, night sweats, pain with urination, increased urinary frequency, increased urinary urgency, blood in her urine or stool, syncope or a near syncopal episode, recent trauma or falls, bowel incontinence, bladder incontinence, or any other complaints at this time. Relieving factors: none Exacerbating factors: none Associated symptoms: denies other symptoms Treatments prior to arrival: none Related Data Previous Rx's ?Medication ?Instructions ?Recorded albuterol sulfate 90 mcg/actuation 2 puff PO Q4H PRN bronchospasm 30 04/27/24 aerosol inhaler (Ventolin HFA) days #18 grams fluticasone propionate 115 2 puff inhalation BID 30 days #12 04/27/24 mcg-salmeterol 21 mcg/actuation grams HFA inhaler (Advair HFA) fluticasone propionate 50 1 spray intranasal DAILY 30 days 04/27/24 mcg/actuation nasal #16 grams spray,suspension (Flonase Allergy Relief) meclizine 25 mg tablet 25 mg PO DAILY PRN for motion 04/27/24 sickness #90 tabs nicotine (polacrilex) 2 mg gum 2 mg buccal Q2H PRN Nicotine 04/27/24 Cravings 30 days #100 ea trazodone 100 mg tablet 100 mg PO BEDTIME PRN Insomnia 30 04/27/24 days #30 tabs umeclidinium 62.5 mcg/actuation 1 inh inhalation BEDTIME 30 days 04/27/24 blister powder for inhalation #30 ea ziprasidone HCl 80 mg capsule 160 mg (2 x 80 mg) PO BEDTIME 30 04/27/24 days #60 caps nirmatrelvir 300 mg (150 mg 3 ea PO PER PKG DIR 5 days #30 ea 05/12/24 x2)-ritonavir 100 mg tablet,dose pack (Paxlovid) atorvastatin 10 mg tablet 10 mg PO BEDTIME 90 days #90 tabs 06/02/24 cetirizine 10 mg tablet (All Day 10 mg PO DAILY PRN allergy 06/02/24 Allergy (cetirizine)) symptoms 90 days #90 tabs cyclobenzaprine 10 mg tablet 10 mg PO TID PRN muscle spasm 30 06/02/24 days #90 tabs buspirone 10 mg tablet 10 mg PO BID 30 days #60 tabs 06/17/24 omeprazole 20 mg capsule,delayed 20 mg PO DAILY@0630 30 days #30 06/17/24 release caps hydroxyzine pamoate 50 mg capsule 50 mg PO BID PRN Anxiety 30 days 06/25/24 #60 caps nabumetone 750 mg tablet 750 mg PO BID PRN Breakthrough 06/25/24 Pain, Moderate 30 days #60 tabs topiramate 25 mg tablet 25 mg PO BEDTIME 30 days #30 tabs 06/25/24 montelukast 10 mg tablet 10 mg PO DAILY 30 days #30 tabs 08/08/24 Allergies Allergy/AdvReac Type Severity Reaction Status Date / Time animal dander [PET DANDER] Allergy Unknown Itching Verified 08/13/24 11:39 bee pollen [BEE STINGS] Allergy Unknown Swelling Verified 08/13/24 11:39 house dust Allergy Unknown Unknown Verified 08/13/24 11:39 shellfish derived Allergy Unknown Swelling Verified 08/13/24 11:39 [SHELLFISH DERIVED] Seasonal Allergies Allergy Itching Verified 08/13/24 11:39 Review of Systems Constitutional: Constitutional: Reports no additional constitutional complaints, Denies chills, Denies fever(s) and Denies night sweats Eyes: Eyes: Reports no additional eye complaints, Denies blurry vision, Denies change in vision, Denies diplopia, Denies eye discharge, Denies loss of vision and Denies eye pain ENT: Denies dizziness Cardiovascular: Cardiovascular: Reports no additional cardiovascular complaints, Denies chest pain, Denies lightheadedness, Denies Loss of Consciousness and Denies dyspnea Respiratory: Respiratory: Reports no additional respiratory complaints and Denies dyspnea Gastrointestinal: Gastrointestinal: Reports no additional gastrointestinal complaints, Denies abdominal pain, Denies melena, Denies hematochezia, Denies change in bowel habits and Denies change in stool character Genitourinary: Genitourinary: Denies hematuria, Denies urinary frequency, Denies dysuria, Denies urinary incontinence, Denies urinary hesitancy and Denies urinary urgency Musculoskeletal: Musculoskeletal: Reports no additional musculoskeletal complaints, Denies numbness and Denies tingling Neurologic: Denies dizziness, Denies loss of vision, Denies numbness and Denies tingling Psychiatric: Psychiatric: Reports no additional psychiatric complaints Endocrine: Endocrine: Reports no additional endocrine complaints Hematologic/Lymphatic: Hematologic/Lymphatic: Reports no additional hematologic/lymphatic complaints Allergic/Immunologic: Allergic/Immunologic: Reports no additional allergic/immunologic complaints [facility] Past Medical History Attestation statement: The following information was validated with the patient. Source: old records reviewed and nursing notes reviewed Medical History Bipolar disorder Severe asthma with allergic rhinitis Allergic rhinitis Vertigo Surgical History No pertinent past surgical history Family History Family History Father Lung cancer CVD (cardiovascular disease) Mother Past heart attack Diabetes Emphysema lung CVD (cardiovascular disease) Family/Other FH: mental illness Maternal Grandmother No problems noted. Paternal Grandmother No problems noted. Social History Social History Household Members: Significant Other Housing: Apartment Do you presently have visiting nurse or other home services: No Alcohol intake: former Patient Tobacco Use Status: Current everyday Tobacco user Tobacco use type: Cigarette Cigarette Packs Per Day: 1.5 Cigarettes Per Day: 30.0 Years Smoked: 19 e-Cigarette/Vaping Use: Never Used Second Hand Smoke Exposure: No Substance Use Type: Crack/Cocaine and Heroin service: No Current occupational status: unemployed Sexual orientation: Straight/Heterosexual Cognitive needs: No Hearing needs: No Vision needs: No Physical Exam ED Vital Signs: Vital Signs - 24 hr 08/13/24 09:00 08/13/24 10:44 Temperature 98.2 F 98.2 F Pulse Rate 94 94 Respiratory Rate 18 18 Blood Pressure 147/85 H 147/85 H Pulse Oximetry 98 98 Oxygen Delivery Method Room Air Room Air BMI result Body Mass Index 40.4 Const General: cooperative, no acute distress, alert and awake Nutritional Appearance: well nourished Orientation/consciousness: patient oriented x3 Limitations: no limitations HENMT Head: Yes normal to inspection and Yes atraumatic Ears: hearing grossly normal bilaterally and external ears normal General nose exam: Normal external nose present, no nasal discharge noted and no epistaxis Face and sinus: Yes normal facial exam, No abrasion and No laceration Mouth: Normal oral and palatal mucosa present, no drooling and no muffled voice Eyes General: appearance normal, both eyes and all related structures Periorbital: periorbital findings normal Eyelids: Yes eyelids normal Conjunctivae: conjunctivae normal Pupils: Equal, round and reactive pupils present EOM: EOMs intact bilaterally Neck Neck: Yes normal visual inspection, Yes full ROM and Yes no lymphadenopathy Chest Chest palpation & inspection: normal inspection of the chest Resp Effort & Inspection: normal respiratory effort and able to speak in complete sentences GI Inspection: Yes normal to inspection Neuro General: patient oriented x3, moves all extremities and CN's II-XI intact bilaterally Cranial nerves: Yes Equal, round and reactive pupils present Cognition (Neuro): normal cognition Extrem General: Yes normal to inspection, Yes full ROM and Yes capillary refill normal Psych Appearance: grossly normal Mental Status: mental status grossly normal Affect: normal affect Attitude: cooperative Thought process: Normal thought process present Thought content: Normal thought content present Insight: Good insight present (Psych) Medical Decision Making Medical Decision Making MDM Narrative: Patient is a 39 year old assigned female at with a history of depression, PTSD, bipolar disorder, substance use / abuse presenting to the emergency department today with [place] of the mall [place] bystanders. Patient's physical exam was unremarkable. I explained my physical exam findings to the patient. I answered all questions asked by the patient. I stressed the importance of the patient taking her medication as directed (either prescribed or as the over the counter packaging recommends). I stressed the importance of the patient following up with her primary care provider. I stressed the importance of the patient returning to the emergency department immediately if she were to develop any dizziness, shortness of breath, difficulty breathing, chest pain, blurry vision, loss of vision, nausea, vomiting, abdominal pain, fever, chills, back pain, or any other complaints. Patient verbalized agreement and understanding with this treatment plan and discharge. Differential Diagnosis Differential Diagnoses: The differential diagnosis associated with the presentation includes Homelessness Independent Historian Clinical information obtained from an independent historian. History obtained from or confirmed by: EMS (EMS provided additional history and confirmed the history provided by the patient.) Discharge Plan Discharge Clinical Impression: Homelessness Patient Disposition: Home, Self-Care Additional Instructions: Follow up with your primary care provider. Return to the emergency department immediately if you develop any numbness, tingling, dizziness, shortness of breath, difficulty breathing, chest pain, blurry vision, loss of vision, nausea, vomiting, abdominal pain, fever, chills, back pain, or any other complaints. Please see the information below about our Patient Portal. If you are not yet enrolled in the [facility] Patient Portal, you will receive an enrollment email invitation following your visit to any [facility] setting. You may also self-enroll in the Patient Portal by visiting our website: [email or web address] The following information is required to access the Patient Portal: - Your [facility] Medical Record Number - Your personal home email address (must match what is in your electronic medical record, Registration staff can assist with this) - Name - Date of Capabilities of the Patient Portal: - Message some providers - View upcoming appointments - Access your health summary, medical history, and visit history - View current conditions and allergies - View procedure and lab results - View your medications, including guidelines, side effects, and precautions - Complete pre-appointment questionnaires requested by your provider - Ready summary reports of your office visits and procedures To access the Patient Portal Mobile [employer], follow these directions: - Search [id number] in the [employer] Store or [employer] Store - Download the D[employer]en - Search for [facility] - Enter your login/password Prescriptions: No Action Paxlovid 300 mg (150 mg x 2)-100 mg tablets,dose pack 3 ea PO PER PKG DIR 5 Days Qty: 30 0RF atorvastatin 10 mg tablet 10 mg PO BEDTIME 90 Days Qty: 90 1RF cetirizine [All Day Allergy (cetirizine)] 10 mg tablet 10 mg PO DAILY PRN (Reason: allergy symptoms) 90 Days Qty: 90 1RF cyclobenzaprine 10 mg tablet 10 mg PO TID PRN (Reason: muscle spasm) 30 Days Qty: 90 3RF buspirone 10 mg tablet 10 mg PO BID 30 Days Qty: 60 0RF omeprazole 20 mg capsule,delayed release(DR/EC) 20 mg PO DAILY@0630 30 Days Qty: 30 0RF hydroxyzine pamoate 50 mg capsule 50 mg PO BID PRN (Reason: Anxiety) 30 Days Qty: 60 0RF nabumetone 750 mg tablet 750 mg PO BID PRN (Reason: Breakthrough Pain, Moderate) 30 Days Qty: 60 0RF topiramate 25 mg tablet 25 mg PO BEDTIME 30 Days Qty: 30 0RF montelukast 10 mg tablet 10 mg PO DAILY 30 Days Qty: 30 1RF nicotine (polacrilex) 2 mg Gum 2 mg buccal Q2H PRN (Reason: Nicotine Cravings) 30 Days Qty: 100 0RF ziprasidone HCl 80 mg capsule 160 mg PO BEDTIME 30 Days Qty: 60 0RF Rx Instructions: give with food (meal/snack) trazodone 100 mg tablet 100 mg PO BEDTIME PRN (Reason: Insomnia) 30 Days Qty: 30 0RF meclizine 25 mg tablet 25 mg PO DAILY PRN (Reason: for motion sickness) Qty: 90 2RF albuterol sulfate [Ventolin HFA] 90 mcg/actuation HFA aerosol inhaler 2 puff PO Q4H PRN (Reason: bronchospasm) 30 Days Qty: 18 5RF fluticasone propionate [Flonase Allergy Relief] 50 mcg/actuation spray,suspension 1 spray intranasal DAILY 30 Days Qty: 16 5RF Rx Instructions: administer into each nostril fluticasone propion-salmeterol [Advair HFA] 115-21 mcg/actuation HFA aerosol inhaler 2 puff inhalation BID 30 Days Qty: 12 2RF umeclidinium 62.5 mcg/actuation blister with device 1 inh INHALATION BEDTIME 30 Days Qty: 30 6RF Referrals: [facility] Family Medicine [Provider Group] (Call to establish and follow up with a primary care provider. If you already have a primary care provider, please follow up with them.) [facility] Primary Care, Delma [Provider Group] (Call to establish and follow up with a primary care provider. If you already have a primary care provider, please follow up with them.) [facility] Primary Care, Jassi [Provider Group] (Call to establish and follow up with a primary care provider. If you already have a primary care provider, please follow up with them.) [facility] Primary Care, KASSY [Provider Group] (Call to establish and follow up with a primary care provider. If you already have a primary care provider, please follow up with them.) [facility] Primary CareNaman [Provider Group] (Call to establish and follow up with a primary care provider. If you already have a primary care provider, please follow up with them.) Interventions: ED Discharge Assessment Last Done: 08/13/24 10:44 Discharge Date/Time: 08/13/24 10:45 Print Language: Greenlandic
--- OUTSIDE RECORDS SUMMARY | 2024-08-13 10:11 | XMS_ITS | Clinical Summary ---
Author Organization [facility] Address [address] [place] [address] Care Team Providers Care Microphone Boom Operator Name Role Phone Roxie Guevara MD Primary Care Provider [phone] Allergies Active Allergy Reactions Criticality Noted Date [...] Tobacco Cessation:Counseling Given: Not Answered [facility] Utilities Answer Date Recorded In the past 12 months has [employer], [employer], [employer], or water [employer] threatened to shut off services in your [...] place to sleep or slept in a long-term (including now)? No 01/13/2024 Sex and Gender [...] Inactivated Comments 01/11/2024 12:44 PM Care Teams Microphone Boom Operator Relationship Specialty Start Date End Date Roxie Guevara MD [address] [place] [address] PCP - General Family Medicine 01/13/24
--- OUTSIDE RECORDS SUMMARY | 2024-08-13 10:11 | XMS_ITS | Clinical Summary ---
Author Organization [facility] Address [address] [place] [address] Phone Care Team Providers Care Hydro Plant Site Manager Name Role Phone Physician, Pcp Unknown Primary Care Provider Mendy vailable Allergies No known active allergies Encounters Date Type Department Care Team Description 08/02/2024 12:35 AM EDT - 08/02/2024 7:08 AM EDT Emergency [facility] Emergency [address] [place] [address] Discharge Disposition: Home or Self [...] patient's age to complete this topic Insurance [facility] Member Subscriber Plan / Payer (Ef fective 2024-Present) Name:Samaria Corley Member ID:[id number] Relation to Subscriber:Self Name:Samaria Corley Subscriber ID:[id number] Payer ID:[id number] Group ID:Not on file Type:Not on file Address: [facility] [address] [address] Care Teams Hydro Plant Site Manager Relationship Specialty Start Date End Date Physician, Pcp Unknown PCP - General 08/02/24
[2024-08-13 10:44] VITALS: BP 147/85; PULSE 94; RESP 18; TEMP 36.8; O2SAT 98
== END 2024-08-13 10:45 | disposition home or self-care (01) ==
PROVIDERS: Emergency Provider Emergency Medicine Emergency Medical Services
DX: R41.82 Altered mental status, unspecified (principal); F17.210 Nicotine dependence, cigarettes, uncomplicated; Z59.00 Homelessness unspecified
CPT/HCPCS: 99281; 99282

== ENCOUNTER 2024-08-13 11:18 | Emergency (ER) | payer OTHER, SELFPAY ==
[2024-08-13 11:33] VITALS: BP 124/78; BP 130/82; PULSE 91; PULSE 92; RESP 20; TEMP 36.2; O2SAT 98; O2SAT 99; BMI 36.5
--- NOTE | 2024-08-13 11:35 | ED.GENADULT ---
HPI - General Adult General Chief complaint: ETOH/Substance Use Stated complaint: VERY HIGH ON CBD PER EMS Related Data Previous Rx's ?Medication ?Instructions ?Recorded albuterol sulfate 90 mcg/actuation 2 puff PO Q4H PRN bronchospasm 30 04/27/24 aerosol inhaler (Ventolin HFA) days #18 grams fluticasone propionate 115 2 puff inhalation BID 30 days #12 04/27/24 mcg-salmeterol 21 mcg/actuation grams HFA inhaler (Advair HFA) fluticasone propionate 50 1 spray intranasal DAILY 30 days 04/27/24 mcg/actuation nasal #16 grams spray,suspension (Flonase Allergy Relief) meclizine 25 mg tablet 25 mg PO DAILY PRN for motion 04/27/24 sickness #90 tabs nicotine (polacrilex) 2 mg gum 2 mg buccal Q2H PRN Nicotine 04/27/24 Cravings 30 days #100 ea trazodone 100 mg tablet 100 mg PO BEDTIME PRN Insomnia 30 04/27/24 days #30 tabs umeclidinium 62.5 mcg/actuation 1 inh inhalation BEDTIME 30 days 04/27/24 blister powder for inhalation #30 ea ziprasidone HCl 80 mg capsule 160 mg (2 x 80 mg) PO BEDTIME 30 04/27/24 days #60 caps nirmatrelvir 300 mg (150 mg 3 ea PO PER PKG DIR 5 days #30 ea 05/12/24 x2)-ritonavir 100 mg tablet,dose pack (Paxlovid) atorvastatin 10 mg tablet 10 mg PO BEDTIME 90 days #90 tabs 06/02/24 cetirizine 10 mg tablet (All Day 10 mg PO DAILY PRN allergy 06/02/24 Allergy (cetirizine)) symptoms 90 days #90 tabs cyclobenzaprine 10 mg tablet 10 mg PO TID PRN muscle spasm 30 06/02/24 days #90 tabs buspirone 10 mg tablet 10 mg PO BID 30 days #60 tabs 06/17/24 omeprazole 20 mg capsule,delayed 20 mg PO DAILY@0630 30 days #30 06/17/24 release caps hydroxyzine pamoate 50 mg capsule 50 mg PO BID PRN Anxiety 30 days 06/25/24 #60 caps nabumetone 750 mg tablet 750 mg PO BID PRN Breakthrough 06/25/24 Pain, Moderate 30 days #60 tabs topiramate 25 mg tablet 25 mg PO BEDTIME 30 days #30 tabs 06/25/24 montelukast 10 mg tablet 10 mg PO DAILY 30 days #30 tabs 08/08/24 Allergies Allergy/AdvReac Type Severity Reaction Status Date / Time animal dander [PET DANDER] Allergy Unknown Itching Verified 08/13/24 19:04 bee pollen [BEE STINGS] Allergy Unknown Swelling Verified 08/13/24 19:04 house dust Allergy Unknown Unknown Verified 08/13/24 19:04 shellfish derived Allergy Unknown Swelling Verified 08/13/24 19:04 [SHELLFISH DERIVED] Seasonal Allergies Allergy Itching Verified 08/13/24 19:04 [facility] Past Medical History Medical History Bipolar disorder Severe asthma with allergic rhinitis Allergic rhinitis Vertigo Surgical History No pertinent past surgical history Family History Family History Father Lung cancer CVD (cardiovascular disease) Mother Past heart attack Diabetes Emphysema lung CVD (cardiovascular disease) Family/Other FH: mental illness Maternal Grandmother No problems noted. Paternal Grandmother No problems noted. Social History Social History Household Members: Significant Other Housing: Apartment Do you presently have visiting nurse or other home services: No Alcohol intake: former Patient Tobacco Use Status: Current everyday Tobacco user Tobacco use type: Cigarette Cigarette Packs Per Day: 1.5 Cigarettes Per Day: 30.0 Years Smoked: 19 Smoked in Last 30 Days: No e-Cigarette/Vaping Use: Never Used Second Hand Smoke Exposure: No Use of substances other than those prescribed or required for medical reasons: No Substance Use Type: Crack/Cocaine and Heroin Do you have a plan to hurt others: No Plan Patient : No service: No Current occupational status: unemployed Sexual orientation: Straight/Heterosexual Cognitive needs: No Hearing needs: No Vision needs: No Physical Exam ED Vital Signs: Vital Signs - 24 hr 08/13/24 11:33 Temperature 97.1 F Pulse Rate 92 Respiratory Rate 20 Blood Pressure 130/82 Pulse Oximetry 99 Oxygen Delivery Method Room Air BMI result Body Mass Index 36.5 Course Course Course Narrative: This is an RME performed by Patty Loja CNP: Additional HPI, ROS, PE not included below will be deferred to primary provider. Patient is a 39-year-old female who presents emergency department via EMS. She was found outside lying on the ground outside of a local bank. Endorsed having ingested 10 CBD gummies, ?because I was tired?. Denies additional recreational drug or alcohol usage. Patient just left the ED at 10:45, returned within 30 minutes. Complaining of vague ABD pain at this time, she is drowsy, falling asleep, not providing much further details. Plan: labs, U/A, toxicology Reevaluation(s) Reevaluation #1: LWCT Medical Decision Making Lab Data 08/13/24 07:51 08/13/24 12:13 Labs: Lab Results 08/13/24 08/13/24 Range/Units 07:51 12:13 WBC 13.7 H (4.8-10.8) X10*3/uL RBC 4.22 (4.20-5.50) X10*6/uL Hgb 12.4 (12.0-16.0) g/dl Hct 37.4 (37.0-47.0) % MCV 88.6 (80.0-98.0) fL MCH 29.4 (27.0-33.0) pg MCHC 33.2 (31.0-35.0) g/dl RDW 12.6 (11.0-16.0) % Plt Count 398 (160-400) X10*3/uL MPV 9.4 (9.4-12.3) fL Immature Gran % (Auto) 0.5 H (0.0-0.4) % Neut % (Auto) 73.8 H (45-73) % Lymph % (Auto) 18.6 L (20-40) % [place] % (Auto) 5.7 (2-11) % Eos % (Auto) 1.1 (0-4) % Baso % (Auto) 0.3 (0-2) % Lymph # (Auto) 2.6 (1.2-4.9) X10*3/uL [place] # (Auto) 0.8 (0.1-1.2) X10*3/uL Eos # (Auto) 0.2 (0.0-0.4) X10*3/uL Baso # (Auto) 0.0 (0.0-0.2) X10*3/uL Abs Immat Gran (auto) 0.07 H (0.00-0.03) X10*3/uL Absolute Neuts (auto) 10.1 H (2.0-8.3) x10*3/uL Absolute Nucleated RBC 0.000 (0.0-0.012) X10*3/uL Nucleated RBC % (auto) 0.0 (0.0-0.2) /100WBC Sodium 140 (135-145) mmol/L Potassium 4.0 D (3.3-5.1) mmol/L Chloride 109 H (96-108) mmol/L Carbon Dioxide 25 (22-29) mmol/L Anion Gap 10 L (12-20) BUN 13 (9-16) mg/dL Creatinine 0.68 (0.5-1.4) mg/dL Estim Creat Clear Calc 131.7 Estimated GFR > 60 Random Glucose 92 (60-115) mg/dL Calcium 9.6 (8.4-10.2) mg/dL Total Bilirubin 0.6 (0.0-1.0) mg/dL AST 17 (5-31) U/L ALT 16 (0-31) U/L Alkaline Phosphatase 83 (39-117) U/L Total Protein 7.1 (6.5-8.0) g/dL Albumin 4.1 (3.5-5.0) g/dL Lipase 5 L (8-78) U/L Ethyl Alcohol < 10 mg/dL Discharge Plan Discharge Clinical Impression: Abdominal pain Patient Disposition: Left W/O Completing Treatment Prescriptions: No Action Paxlovid 300 mg (150 mg x 2)-100 mg tablets,dose pack 3 ea PO PER PKG DIR 5 Days Qty: 30 0RF atorvastatin 10 mg tablet 10 mg PO BEDTIME 90 Days Qty: 90 1RF cetirizine [All Day Allergy (cetirizine)] 10 mg tablet 10 mg PO DAILY PRN (Reason: allergy symptoms) 90 Days Qty: 90 1RF cyclobenzaprine 10 mg tablet 10 mg PO TID PRN (Reason: muscle spasm) 30 Days Qty: 90 3RF buspirone 10 mg tablet 10 mg PO BID 30 Days Qty: 60 0RF omeprazole 20 mg capsule,delayed release(DR/EC) 20 mg PO DAILY@0630 30 Days Qty: 30 0RF hydroxyzine pamoate 50 mg capsule 50 mg PO BID PRN (Reason: Anxiety) 30 Days Qty: 60 0RF nabumetone 750 mg tablet 750 mg PO BID PRN (Reason: Breakthrough Pain, Moderate) 30 Days Qty: 60 0RF topiramate 25 mg tablet 25 mg PO BEDTIME 30 Days Qty: 30 0RF montelukast 10 mg tablet 10 mg PO DAILY 30 Days Qty: 30 1RF nicotine (polacrilex) 2 mg Gum 2 mg buccal Q2H PRN (Reason: Nicotine Cravings) 30 Days Qty: 100 0RF ziprasidone HCl 80 mg capsule 160 mg PO BEDTIME 30 Days Qty: 60 0RF Rx Instructions: give with food (meal/snack) trazodone 100 mg tablet 100 mg PO BEDTIME PRN (Reason: Insomnia) 30 Days Qty: 30 0RF meclizine 25 mg tablet 25 mg PO DAILY PRN (Reason: for motion sickness) Qty: 90 2RF albuterol sulfate [Ventolin HFA] 90 mcg/actuation HFA aerosol inhaler 2 puff PO Q4H PRN (Reason: bronchospasm) 30 Days Qty: 18 5RF fluticasone propionate [Flonase Allergy Relief] 50 mcg/actuation spray,suspension 1 spray intranasal DAILY 30 Days Qty: 16 5RF Rx Instructions: administer into each nostril fluticasone propion-salmeterol [Advair HFA] 115-21 mcg/actuation HFA aerosol inhaler 2 puff inhalation BID 30 Days Qty: 12 2RF umeclidinium 62.5 mcg/actuation blister with device 1 inh INHALATION BEDTIME 30 Days Qty: 30 6RF Discharge Date/Time: 08/13/24 14:18
[2024-08-13 12:25] LABS: MANUAL DIFF FLAG NO
[2024-08-13 12:27] LABS: Basophils Percent Auto 0.3 % (0-2); Eosinophils Absolute Auto 0.2 X10*3/uL (0.0-0.4); Eosinophils Percent Auto 1.1 % (0-4); Hematocrit 37.4 % (37.0-47.0); Hemoglobin 12.4 g/dl (12.0-16.0); Imm Gran Abs Auto 0.07 X10*3/uL (0.00-0.03); Imm Gran Pct Auto 0.5 % (0.0-0.4); Lymphocytes Absolute Auto 2.6 X10*3/uL (1.2-4.9); Lymphocytes Percent Auto 18.6 % (20-40); Mean Corpuscular HGB Conc 33.2 g/dl (31.0-35.0); Mean Corpuscular Hemoglobin 29.4 pg (27.0-33.0); Mean Corpuscular Volume 88.6 fL (80.0-98.0); Mean Platelet Volume 9.4 fL (9.4-12.3); Monocytes Absolute Auto 0.8 X10*3/uL (0.1-1.2); Monocytes Percent Auto 5.7 % (2-11); Neutrophils Absolute Auto 10.1 x10*3/uL (2.0-8.3); Neutrophils Percent Auto 73.8 % (45-73); Platelet Count 398 X10*3/uL (160-400); Red Blood Count 4.22 X10*6/uL (4.20-5.50); Red Cell Distribution Width 12.6 % (11.0-16.0); White Blood Count 13.7 X10*3/uL (4.8-10.8)
[2024-08-13 12:44] LABS: Alanine Aminotransferase 16 U/L (0-31); Albumin Level 4.1 g/dL (3.5-5.0); Alkaline Phosphatase 83 U/L (39-117); Anion Gap 10 (12-20); Aspartate Amino Transferase 17 U/L (5-31); Bilirubin Total 0.6 mg/dL (0.0-1.0); Blood Urea Nitrogen 13 mg/dL (9-16); Calcium 9.6 mg/dL (8.4-10.2); Carbon Dioxide 25 mmol/L (22-29); Chloride 109 mmol/L (96-108); Creatinine Clr Calc Pharmacy 131.7; Estimated Glomerular Filt Rate > 60; Ethanol < 10 mg/dL; Glucose Random 92 mg/dL (60-115); Lipase 5 U/L (8-78); Sodium 140 mmol/L (135-145); Total Protein 7.1 g/dL (6.5-8.0)
--- OUTSIDE RECORDS SUMMARY | 2024-08-13 14:34 | XMS_ITS | Clinical Summary ---
Author Organization [facility] Address [address] [place] [address] Phone Care Team Providers Care Prison Psychiatrist Name Role Phone Physician, Pcp Unknown Primary Care Provider Mendy vailable Allergies No known active allergies Encounters Date Type Department Care Team Description 08/02/2024 12:35 AM EDT - 08/02/2024 7:[address] [facility] Emergency [address] [place] [address] Discharge Disposition: Home or Self [...] to complete this topic Insurance [facility] Member Subscriber Plan / Payer (Ef fective 2024-Present) Name:Samaria Corley Member ID:[id number] Relation to Subscriber:Self Name:Samaria Corley Subscriber ID:[id number] Payer ID:[id number] Group ID:Not on file Type:Not on file Address: [facility] [address] [id number] Care Teams Prison Psychiatrist Relationship Specialty Start Date End Date Physician, Pcp Unknown PCP - General 08/02/24
--- OUTSIDE RECORDS SUMMARY | 2024-08-13 14:34 | XMS_ITS | Clinical Summary ---
Author Organization [facility] Address [address] [place] [address] Care Team Providers Care Certified Pest Control Technician Name Role Phone Roxie Guevara MD Primary Care Provider [phone] Allergies Active Allergy Reactions Criticality Noted Date [...] Never Assessed Tobacco Cessation:Counseling Given: Not Answered [facility] Utilities Answer Date Recorded In the past 12 months has [email or web address], [employer] [place] Self Representation Document Preparation, or water [employer] threatened to shut off services in your [...] place to sleep or slept in a care home (including now)? No 01/13/2024 Sex and Gender [...] Inactivated Comments 01/11/2024 12:44 PM Care Teams Certified Pest Control Technician Relationship Specialty Start Date End Date Roxie Guevara MD [address] [place] [address] PCP - General Family Medicine 01/13/24
== END 2024-08-13 14:18 | disposition left against medical advice (07) ==
PROVIDERS: Nurse Practitioner Family; Emergency Provider Emergency Medicine
DX: R10.2 Pelvic and perineal pain (principal)
CPT/HCPCS: 36415; 80053; 80307; 83690; 85025

== ENCOUNTER 2024-08-13 18:41 | Emergency (ER) | payer OTHER, SELFPAY ==
--- NOTE | ~2024-08-13 | CT_ITS ---
CLINICAL HISTORY: RLQ pain CT abdomen and pelvis with contrast Comparison: None Findings: The lung bases are clear. Unremarkable gallbladder and solid organs. No urolithiasis. No bowel obstruction, pneumoperitoneum, or pneumatosis. Pelvic contents unremarkable. Normal appendix. The bones are intact. IMPRESSION: No acute findings. This document has been electronically signed by: Andrea Palomares MD on 08/13/2024 23:35:02
[2024-08-13 18:59] VITALS: BP 135/82; BP 148/98; PULSE 118; PULSE 95; RESP 16; TEMP 37.7; O2SAT 98; BMI 38.4
--- NOTE | 2024-08-13 19:52 | PC.NURSE ---
pt biba from [employer], a&ox4, respirations even and unlabored. pt reports she developed epigastric pain which has worsened as the day went on. pt reports she was seen here x3 times today and discharged. vss. pt denies cp and sob.
--- NOTE | 2024-08-13 22:09 | ED_ITS ---
HPI - General Adult General Chief complaint: Abdominal Pain Stated complaint: n/v and diarrhea 1month burning sensation in abd Time Seen by Provider: 08/13/24 21:27 Source: patient, RN notes reviewed and old records reviewed Mode of arrival: EMS Limitations: no limitations History of Present Illness ED Provider: Mamta HPI narrative: 39-year-old female presents for evaluation of abdominal pain. Patient has a history of bipolar disorder, IBS depression, PTSD, asthma presenting for evaluation of abdominal pain. this is the patient's 4th visit in last 24 hours. She initially checked in for leg pain and dysuria late last night into this morning. she was then returned around 9:30 a.m. this morning she returned again around 11:30am this morning for abdominal pain and left with out being seen on that visit she would have labs drawn that were significant for a leukocytosis of 13.7. The patient is telling me that she was here currently for right lower abdominal pain but is unable to tell me when this started. She complains of nausea but denies associated symptoms including fevers, chills, diarrhea, burning with urination Related Data Previous Rx's ?Medication ?Instructions ?Recorded albuterol sulfate 90 mcg/actuation 2 puff PO Q4H PRN bronchospasm 30 04/27/24 aerosol inhaler (Ventolin HFA) days #18 grams fluticasone propionate 115 2 puff inhalation BID 30 days #12 04/27/24 mcg-salmeterol 21 mcg/actuation grams HFA inhaler (Advair HFA) fluticasone propionate 50 1 spray intranasal DAILY 30 days 04/27/24 mcg/actuation nasal #16 grams spray,suspension (Flonase Allergy Relief) meclizine 25 mg tablet 25 mg PO DAILY PRN for motion 04/27/24 sickness #90 tabs nicotine (polacrilex) 2 mg gum 2 mg buccal Q2H PRN Nicotine 04/27/24 Cravings 30 days #100 ea trazodone 100 mg tablet 100 mg PO BEDTIME PRN Insomnia 30 04/27/24 days #30 tabs umeclidinium 62.5 mcg/actuation 1 inh inhalation BEDTIME 30 days 04/27/24 blister powder for inhalation #30 ea ziprasidone HCl 80 mg capsule 160 mg (2 x 80 mg) PO BEDTIME 30 04/27/24 days #60 caps nirmatrelvir 300 mg (150 mg 3 ea PO PER PKG DIR 5 days #30 ea 05/12/24 x2)-ritonavir 100 mg tablet,dose pack (Paxlovid) atorvastatin 10 mg tablet 10 mg PO BEDTIME 90 days #90 tabs 06/02/24 cetirizine 10 mg tablet (All Day 10 mg PO DAILY PRN allergy 06/02/24 Allergy (cetirizine)) symptoms 90 days #90 tabs cyclobenzaprine 10 mg tablet 10 mg PO TID PRN muscle spasm 30 06/02/24 days #90 tabs buspirone 10 mg tablet 10 mg PO BID 30 days #60 tabs 06/17/24 omeprazole 20 mg capsule,delayed 20 mg PO DAILY@0630 30 days #30 06/17/24 release caps hydroxyzine pamoate 50 mg capsule 50 mg PO BID PRN Anxiety 30 days 06/25/24 #60 caps nabumetone 750 mg tablet 750 mg PO BID PRN Breakthrough 06/25/24 Pain, Moderate 30 days #60 tabs topiramate 25 mg tablet 25 mg PO BEDTIME 30 days #30 tabs 06/25/24 montelukast 10 mg tablet 10 mg PO DAILY 30 days #30 tabs 08/08/24 Allergies Allergy/AdvReac Type Severity Reaction Status Date / Time animal dander [PET DANDER] Allergy Unknown Itching Verified 08/13/24 19:04 bee pollen [BEE STINGS] Allergy Unknown Swelling Verified 08/13/24 19:04 house dust Allergy Unknown Unknown Verified 08/13/24 19:04 shellfish derived Allergy Unknown Swelling Verified 08/13/24 19:04 [SHELLFISH DERIVED] Seasonal Allergies Allergy Itching Verified 08/13/24 19:04 Review of Systems 2 Constitutional: Constitutional: Denies body ache(s), Denies chills, Denies fever(s) and Denies headache(s) Eyes: Eyes: Denies blurry vision ENT: Denies vertigo, Denies headache(s) and Denies sore throat Cardiovascular: Cardiovascular: Denies chest pain and Denies dyspnea Respiratory: Respiratory: Denies cough and Denies dyspnea Gastrointestinal: Gastrointestinal: Reports abdominal pain, Reports nausea and Denies vomiting Musculoskeletal: Musculoskeletal: Denies abnormal gait and Denies back pain Integumentary/Breasts: Skin/Breast: Denies rash Neurologic: Denies abnormal gait, Denies vertigo and Denies headache(s) [facility] Past Medical History Medical History Bipolar disorder Severe asthma with allergic rhinitis Allergic rhinitis Vertigo Surgical History No pertinent past surgical history Family History Family History Father Lung cancer CVD (cardiovascular disease) Mother Past heart attack Diabetes Emphysema lung CVD (cardiovascular disease) Family/Other FH: mental illness Maternal Grandmother No problems noted. Paternal Grandmother No problems noted. Social History Social History Household Members: Significant Other Housing: Apartment Do you presently have visiting nurse or other home services: No Alcohol intake: former Patient Tobacco Use Status: Current everyday Tobacco user Tobacco use type: Cigarette Cigarette Packs Per Day: 1.5 Cigarettes Per Day: 30.0 Years Smoked: 19 Smoked in Last 30 Days: No e-Cigarette/Vaping Use: Never Used Second Hand Smoke Exposure: No Use of substances other than those prescribed or required for medical reasons: No Substance Use Type: Crack/Cocaine and Heroin Advance Directives: No Advance Directives Information Provided: No Do you have a plan to hurt others: No Plan Patient : No service: No Current occupational status: unemployed Sexual orientation: Straight/Heterosexual Cognitive needs: No Hearing needs: No Vision needs: No Physical Exam ED Vital Signs: Vital Signs - 24 hr 08/13/24 18:59 Temperature 99.9 F Pulse Rate 95 Respiratory Rate 16 Blood Pressure 135/82 Pulse Oximetry 98 Oxygen Delivery Method Room Air BMI result Body Mass Index 38.4 Const General: healthy appearing, comfortable, no acute distress, alert and awake Nutritional Appearance: well nourished Orientation/consciousness: patient oriented x3 HENMT Head: Yes normocephalic and Yes atraumatic Eyes Eyelids: Yes eyelids normal Conjunctivae: conjunctivae normal Sclerae: sclerae normal Corneas: corneas normal Pupils: Equal, round and reactive pupils present EOM: EOMs intact bilaterally Neck Neck: Yes full ROM Resp Effort & Inspection: normal respiratory effort, able to speak in complete sentences and not labored GI Inspection: No distended Palpation (GI): Soft to palpation, not firm, Tenderness to palpation present (GI) in the RLQ, no guarding and not rigid Auscultation: normoactive bowel sounds Skin General skin exam: elasticity normal Neuro General: patient oriented x3 Cranial nerves: Yes Equal, round and reactive pupils present and Yes Bilaterally intact EOM present Cognition (Neuro): normal cognition Extrem Other: Moving all extremities well without any obvious deformities Course Reevaluation(s) Reevaluation #1: I was informed by nursing staff that the patient eloped from the emergency department. It was believed that she left with her IV still in place. The police were notified to keep an eye out for the patient Time: 23:20 Medications Administered Discontinued Medications Generic Name Dose Route Start Last Admin Trade Name Freq PRN Reason Stop Dose Admin Iohexol 85 ml 08/13/24 22:30 08/13/24 22:34 Iohexol 350 Mg/Ml 100 Ml Infus..Btl IV 08/13/24 22:31 85 ml ONCE ONE Administration Medical Decision Making Medical Decision Making MDM Narrative: 39-year-old female presents for evaluation of right lower abdominal pain. Her temp on arrival was 99.9. She had a leukocytosis this morning of 13.7. Given her right lower quadrant pain with tenderness on exam I ordered a CT scan of the abdomen pelvis with contrast to evaluate for acute appendicitis. The patient denies any history of Abdominal surgeries. Differential Diagnosis Differential Diagnoses: The differential diagnosis associated with the presentation includes abdominal pain Viral syndrome UTI Cystitis Acute appendicitis Lab Data Labs: Lab Results 08/13/24 08/13/24 Range/Units 21:43 22:24 Beta HCG, Quant < 2 mIU/mL Influenza Type A (PCR) NEGATIVE (Negative) Influenza Type B (PCR) NEGATIVE (Negative) RSV RNA Qual (PCR) NEGATIVE (Negative) SARS-CoV-2 RNA (RT-PCR) NEGATIVE (Negative) Discharge Plan Discharge Clinical Impression: Abdominal pain Patient Disposition: Left W/O Completing Treatment Prescriptions: No Action Paxlovid 300 mg (150 mg x 2)-100 mg tablets,dose pack 3 ea PO PER PKG DIR 5 Days Qty: 30 0RF atorvastatin 10 mg tablet 10 mg PO BEDTIME 90 Days Qty: 90 1RF cetirizine [All Day Allergy (cetirizine)] 10 mg tablet 10 mg PO DAILY PRN (Reason: allergy symptoms) 90 Days Qty: 90 1RF cyclobenzaprine 10 mg tablet 10 mg PO TID PRN (Reason: muscle spasm) 30 Days Qty: 90 3RF buspirone 10 mg tablet 10 mg PO BID 30 Days Qty: 60 0RF omeprazole 20 mg capsule,delayed release(DR/EC) 20 mg PO DAILY@0630 30 Days Qty: 30 0RF hydroxyzine pamoate 50 mg capsule 50 mg PO BID PRN (Reason: Anxiety) 30 Days Qty: 60 0RF nabumetone 750 mg tablet 750 mg PO BID PRN (Reason: Breakthrough Pain, Moderate) 30 Days Qty: 60 0RF topiramate 25 mg tablet 25 mg PO BEDTIME 30 Days Qty: 30 0RF montelukast 10 mg tablet 10 mg PO DAILY 30 Days Qty: 30 1RF nicotine (polacrilex) 2 mg Gum 2 mg buccal Q2H PRN (Reason: Nicotine Cravings) 30 Days Qty: 100 0RF ziprasidone HCl 80 mg capsule 160 mg PO BEDTIME 30 Days Qty: 60 0RF Rx Instructions: give with food (meal/snack) trazodone 100 mg tablet 100 mg PO BEDTIME PRN (Reason: Insomnia) 30 Days Qty: 30 0RF meclizine 25 mg tablet 25 mg PO DAILY PRN (Reason: for motion sickness) Qty: 90 2RF albuterol sulfate [Ventolin HFA] 90 mcg/actuation HFA aerosol inhaler 2 puff PO Q4H PRN (Reason: bronchospasm) 30 Days Qty: 18 5RF fluticasone propionate [Flonase Allergy Relief] 50 mcg/actuation spray,suspension 1 spray intranasal DAILY 30 Days Qty: 16 5RF Rx Instructions: administer into each nostril fluticasone propion-salmeterol [Advair HFA] 115-21 mcg/actuation HFA aerosol inhaler 2 puff inhalation BID 30 Days Qty: 12 2RF umeclidinium 62.5 mcg/actuation blister with device 1 inh INHALATION BEDTIME 30 Days Qty: 30 6RF
[2024-08-13 22:19] LABS: HCG Quantitative < 2 mIU/mL
[2024-08-13] MEDS: iohexoL 350 MG/ML 100 ML INFUS..BTL 85 ML IV (22:34)
--- NOTE | 2024-08-13 22:58 | PC.NURSE ---
this rn exited another pt room and noted pt to no longer be in stretcher. this rn spoke to the front desk assistant who stated they let pt leave through the doors. per security, pt noted on camera exiting at approx. [phone]. PD contacted at this time. smelter charger merissa blackman.
--- NOTE | 2024-08-13 23:01 | PC.NURSE ---
per pd they will send a search car to look for pt. madina ahmadi aware.
[2024-08-13 23:10] LABS: Influenza A PCR NEGATIVE (Negative); Influenza B PCR NEGATIVE (Negative); Resp Syncy Virus RNA Qual PCR NEGATIVE (Negative); SARS COV2 PCR INHOUSE NEGATIVE (Negative)
--- NOTE | 2024-08-14 02:01 | PC.NURSE ---
new account made- pt noted to return to ed by ems at this time with iv in arm, iv access removed.
== END 2024-08-14 02:02 | disposition left against medical advice (07) ==
PROVIDERS: Physician Assistant; Emergency Provider Emergency Medicine
DX: R10.31 Right lower quadrant pain (principal); R50.9 Fever, unspecified; R11.0 Nausea; M79.606 Pain in leg, unspecified; R30.0 Dysuria; F17.210 Nicotine dependence, cigarettes, uncomplicated; Z79.899 Other long term (current) drug therapy
CPT/HCPCS: 0241U; 36415; 74177; 80053; 80307; 83690; 84702; 85025; 99281; 99282; 99284; Q9967

== ENCOUNTER → 2024-08-13 21:38 | Outpatient (BNV) | payer OTHER, SELFPAY | PROVIDERS: Emergency Provider Emergency Medicine; Visit Provider Radiology Diagnostic Radiology | DX: R10.31 Right lower quadrant pain (principal) | CPT/HCPCS: 74177 ==

== ENCOUNTER 2024-08-14 01:42 | Inpatient (IN) | payer OTHER, SELFPAY ==
[2024-08-14 01:48] VITALS: BP 129/78; PULSE 90; O2SAT 100
[2024-08-14 01:54] VITALS: BP 96/57; PULSE 80; RESP 16; TEMP 36.6; O2SAT 96; BMI 34.3
--- NOTE | 2024-08-14 02:16 | ED.GENADULT ---
HPI - General Adult General Chief complaint: Psychiatric Symptoms Stated complaint: SI Time Seen by Provider: 08/14/24 01:49 Source: patient, RN notes reviewed and old records reviewed Mode of arrival: EMS Limitations: no limitations History of Present Illness ED Provider: Mamta MCCAIN narrative: 39-year-old female presents for evaluation of suicidal ideation. Patient eloped from this emergency department a few hours ago with her IV in place. Police were notified that the patient left with her IV in the patient reported to EMS on their arrival that she did not want to live anymore. The patient is refusing to answer further questions this is her 5th ED visit to this facility in about 26 hours the patient was seen for leg pain, abdominal pain, homelessness Related Data Home Medications ?Medication ?Instructions ?Recorded ?Confirmed acetaminophen 650 mg 650 mg PO Q8H PRN pain 08/15/24 08/15/24 tablet,extended release Previous Rx's ?Medication ?Instructions ?Recorded albuterol sulfate 90 mcg/actuation 2 puff PO Q4H PRN bronchospasm 30 04/27/24 aerosol inhaler (Ventolin HFA) days #18 grams fluticasone propionate 115 2 puff inhalation BID 30 days #12 04/27/24 mcg-salmeterol 21 mcg/actuation grams HFA inhaler (Advair HFA) fluticasone propionate 50 1 spray intranasal DAILY 30 days 04/27/24 mcg/actuation nasal #16 grams spray,suspension (Flonase Allergy Relief) meclizine 25 mg tablet 25 mg PO DAILY PRN for motion 04/27/24 sickness #90 tabs umeclidinium 62.5 mcg/actuation 1 inh inhalation BEDTIME 30 days 04/27/24 blister powder for inhalation #30 ea atorvastatin 10 mg tablet 10 mg PO BEDTIME 90 days #90 tabs 06/02/24 cetirizine 10 mg tablet (All Day 10 mg PO DAILY PRN allergy 06/02/24 Allergy (cetirizine)) symptoms 90 days #90 tabs cyclobenzaprine 10 mg tablet 10 mg PO TID PRN muscle spasm 30 06/02/24 days #90 tabs montelukast 10 mg tablet 10 mg PO DAILY 30 days #30 tabs 08/08/24 Allergies Allergy/AdvReac Type Severity Reaction Status Date / Time animal dander [PET DANDER] Allergy Unknown Itching Verified 08/14/24 01:57 bee pollen [BEE STINGS] Allergy Unknown Swelling Verified 08/14/24 01:57 house dust Allergy Unknown Unknown Verified 08/14/24 01:57 shellfish derived Allergy Unknown Swelling Verified 08/14/24 01:57 [SHELLFISH DERIVED] Seasonal Allergies Allergy Itching Verified 08/14/24 01:57 Review of Systems Review of Systems: the patient is not cooperative with review of systems PMFSH Past Medical History Medical History Bipolar disorder Severe asthma with allergic rhinitis Allergic rhinitis Vertigo Surgical History No pertinent past surgical history Family History Family History Father Lung cancer CVD (cardiovascular disease) Mother Past heart attack Diabetes Emphysema lung CVD (cardiovascular disease) Family/Other FH: mental illness Maternal Grandmother No problems noted. Paternal Grandmother No problems noted. Social History Social History Household Members: Significant Other Housing: Apartment Do you presently have visiting nurse or other home services: No Unable to assess alcohol history related to: Refusing to respond Alcohol intake: former Patient Tobacco Use Status: Refuse Tobacco use screen Tobacco use type: Cigarette Cigarette Packs Per Day: 1.5 Cigarettes Per Day: 30.0 Years Smoked: 19 e-Cigarette/Vaping Use: Never Used Second Hand Smoke Exposure: No Use of substances other than those prescribed or required for medical reasons: Refusing to respond Substance Use Type: Crack/Cocaine and Heroin Advance Directives: No Advance Directives Information Provided: No Nutrition Risks: No Nutritional Risk Patient : No service: No Current occupational status: unemployed Sexual orientation: Straight/Heterosexual Cognitive needs: No Hearing needs: No Vision needs: No Physical Exam ED Vital Signs: Vital Signs - 24 hr 08/15/24 16:16 08/15/24 23:23 Temperature 98.7 F 97.7 F Pulse Rate 83 86 Respiratory Rate 13 16 Blood Pressure 116/73 129/87 Pulse Oximetry 98 98 Oxygen Delivery Method Room Air Room Air BMI result Body Mass Index 34.3 Const General: comfortable, alert and awake Nutritional Appearance: well nourished Orientation/consciousness: patient oriented x3 HENMT Head: Yes normocephalic and Yes atraumatic Eyes Eyelids: Yes eyelids normal Conjunctivae: conjunctivae normal Sclerae: sclerae normal Corneas: corneas normal Pupils: Equal, round and reactive pupils present EOM: EOMs intact bilaterally Neck Neck: Yes full ROM Resp Effort & Inspection: normal respiratory effort, able to speak in complete sentences and not labored Cardio Rate: regular rate Rhythm: regular rhythm GI Inspection: No distended Palpation (GI): Soft to palpation, not firm, nontender, no guarding and not rigid Skin General skin exam: no rashes or lesions noted and elasticity normal Neuro General: patient oriented x3 Cranial nerves: Yes Equal, round and reactive pupils present and Yes Bilaterally intact EOM present Cognition (Neuro): normal cognition Extrem Other: Moving all extremities well without any obvious deformities Course Course Course Narrative: Time: 08:46 Date: 08/14/24 Provider: Tanvi Sen DO Patient in physician observation for psychiatric evaluation.? No acute events reported overnight. No current complaints. VS stable.? Pending CARE team evaluation. Will continue to monitor. Reevaluation(s) Reevaluation #1: Time: 12:25 Date: 08/16/24 Provider: Tanvi Sen DO Physician observation ended at 1200pm. Patient to be admitted as inpatient to psychiatry. Medications Administered Discontinued Medications Generic Name Dose Route Start Last Admin Trade Name Freq PRN Reason Stop Dose Admin Al Hydroxide/Mg Hydroxide 30 ml 08/15/24 18:24 08/15/24 18:44 Magnesium Hydrox/Alum Hydrox 30 Ml Oral.Susp PO 08/15/24 18:25 Not Given ONCE STA Atorvastatin Calcium 10 mg 08/15/24 21:00 08/15/24 20:24 Atorvastatin Calcium 10 Mg Tablet PO 10 mg BEDTIME NATALIA Administration Cyclobenzaprine HCl 10 mg 08/15/24 07:19 08/15/24 15:56 Cyclobenzaprine Hcl 10 Mg Tablet PO 10 mg TID PRN Administration muscle spasm Fluticasone Propionate 1 spray 08/15/24 09:00 08/16/24 08:24 Fluticasone Propionate Nasal 16 Gm [place] NOSTRIL-B 1 spray DAILY NATALIA Administration Fluticasone/Vilanterol 1 puff 08/15/24 08:00 08/16/24 08:24 Fluticasone/Vilanterol 100/25 Blst.W.Dev INHALE 1 puff RDAILY NATALIA Administration Meclizine HCl 25 mg 08/15/24 09:00 08/15/24 07:54 Meclizine Hcl 25 Mg Tablet PO 25 mg DAILY PRN Administration for motion sickness Melatonin 6 mg 08/15/24 00:02 08/15/24 00:06 Melatonin 3 Mg Tablet PO 08/15/24 00:03 6 mg ONCE ONE Administration Montelukast Sodium 10 mg 08/15/24 09:00 08/16/24 08:24 Montelukast Sodium 10 Mg Tablet PO 10 mg DAILY NATALIA Administration Tiotropium [place] 2 puff 08/15/24 21:00 08/16/24 08:24 Tiotropium [place] 2.5 Mcg 1 Puff/2.5 Mcg Mist.Inhal INHALE 2 puff RDAILY NATALIA Administration Medical Decision Making Medical Decision Making [facility] Narrative: I saw this patient just a few hours ago for abdominal pain, I ordered labs in his CT scan of the abdomen pelvis. The labs were reassuring here CT scan did not show any acute findings. However the patient eloped from the department with her IV in place. She reported to EMS that she was suicidal and did not want to live anymore. This time I will place the patient on a section 12 to be evaluated by our care team. I do not see a reason to repeat the CBC or BMP. However we will get an ethanol level with acetaminophen, salicylates and a new drug screen. Differential Diagnosis Differential Diagnoses: The differential diagnosis associated with the presentation includes depression Suicidal ideation Malingering Homelessness Bipolar disorder Schizophrenia Lab Data Labs: Lab Results 08/14/24 08/15/24 Range/Units 21:35 07:14 Urine Color Dark Yellow Urine Appearance Clear Urine pH 5.5 (5.0-9.0) Ur Specific [place] >= 1.030 H (1.005-1.025) Urine Protein Trace (Neg-Trace) mg/dL Urine Glucose (UA) Negative (Negative) mg/dL Urine Ketones Trace (Negative) mg/dL Urine Blood Negative (Negative) Urine Nitrite Negative (Negative) Ur Leukocyte Esterase Trace H (Negative) Urine RBC 3-5 H (0-2) /HPF Urine WBC 0-5 (0-5) /HPF Ur Squamous Epith Cells 6-10 (0-2) /HPF Urine Bacteria 1+ (None Seen) Hyaline Casts 0-2 (0-2) /LPF Urine Test NEGATIVE (NEGATIVE) Salicylates < 5.0 L (15-30) mg/dL Urine Opiates Screen Not Detected (Not Detect) Ur Buprenorphine Scrn Not Detected (Not Detect) ng/mL Ur Oxycodone Screen Not Detected (Not Detect) ng/mL Urine Methadone Screen Not Detected (Not Detect) ng/mL Urine Fentanyl Screen Not Detected (Not Detect) Acetaminophen < 3 (<30) mcg/mL Ur Barbiturates Screen Not Detected (Not Detect) Ur Phencyclidine Scrn Not Detected (Not Detect) Ur Amphetamines Screen Not Detected (Not Detect) U Benzodiazepines Scrn Not Detected (Not Detect) Urine Cocaine Screen Not Detected (Not Detect) U Marijuana (THC) Screen POSITIVE H (Not Detect) Ethyl Alcohol < 10 mg/dL Discharge Plan Discharge Clinical Impression: Suicidal ideation Patient Disposition: Admitted As Inpatient Interventions: O'Brien-Suicide Risk Severity Scale Last Done: 08/15/24 15:55 Admission Worksheet (ED) Last Done: 08/16/24 12:21 Discharge Date/Time: 08/16/24 12:22 Print Language: Burkinan
--- NOTE | 2024-08-14 02:17 | PC.NURSE ---
patient walked over from main ED was prev in main ED and had eloped out of ED with IV in arm. patient threatening (verbal swearing, aggressive) to staff and during search stated needed bra for back support (client is heavier) PA informed t/w that eventually new labs would need to be obtained to cler client b/c of her departure from ED w IV in place. patient redirected and self dialoguing but overall posing no hreat pesently to staff. will continue to monitor.
--- NOTE | 2024-08-14 08:33 | MHC.EDTECH ---
Patient is refusing all testing. Will not allow us to draw labs and refuses to give urine sample. RN aware.
[2024-08-14 09:08] VITALS: BP 127/72; PULSE 80; RESP 14; O2SAT 98
--- NOTE | 2024-08-14 10:32 | PC.NURSE ---
Pt uncooperative with providing a urine sample; pt will allow vital signs; care team present for eval
[2024-08-14 17:32] VITALS: BP 121/63; PULSE 85; RESP 14; O2SAT 97
--- NOTE | 2024-08-14 21:37 | MHC.EDTECH ---
refused blood work
[2024-08-14 21:44] LABS: Appearance Urine Clear; Color Urine Dark Yellow; Glucose Urine UA Negative (Negative); Leukocyte Esterase Urine Trace (Negative); Nitrite Urine Negative (Negative); PH 5.5 (5.0-9.0); Specific Gravity - Urine >= 1.030 (1.005-1.025); UMIC TRIGGER UACC YES; Urine Blood Negative (Negative); Urine Ketones Trace mg/dL (Negative); Urine Protein Trace mg/dL (Neg-Trace)
[2024-08-14 21:45] LABS: UPreg QC Valid YES; Urine Pregnancy NEGATIVE (NEGATIVE)
[2024-08-14 21:56] LABS: Amphetamine Screen Urine Not Detected (Not Detect); Barbiturates, Urine Not Detected (Not Detect); Benzodiazepines Screen Urine Not Detected (Not Detect); Buprenorphine Scr Not Detected (Not Detect); Cannabinoid Screen Urine POSITIVE (Not Detect); Cocaine Screen Urine Not Detected (Not Detect); Fentanyl, urine Not Detected (Not Detect); Methadone Screen, Urine Not Detected (Not Detect); Opiate Screen Urine Not Detected (Not Detect); Oxycodone Screen Urine Not Detected (Not Detect); Phencyclidine Screen Urine Not Detected (Not Detect)
[2024-08-14 21:58] LABS: Bacteria Urine 1+ (None Seen); Hyaline Casts Urine 0-2 /LPF (0-2); WBC Urine 0-5 /HPF (0-5)
--- NOTE | 2024-08-14 23:40 | PC.NURSE ---
en route to bathroom tomorrow i want to talk to someone about getting hypnosis
[2024-08-15] MEDS: Melatonin 3 MG TABLET 6 MG PO (00:06)
--- NOTE | 2024-08-15 00:06 | PC.NURSE ---
patient had been prior exhibiting some RIS behavior ie: pacing and self dialogue however patient began to interact more w staff and requested melatonin. t/w obtained order and admnistered. patient seemed mildly tearful seated on sleeping area but not acutely distressed.
--- NOTE | 2024-08-15 03:22 | PC.NURSE ---
report received from Urvashi rn , pt sleeping at this time.
--- NOTE | 2024-08-15 05:53 | PC.NURSE ---
pt awake walking with steady gait in the pod. This rn noticed pt has a tank top and bra on under her green gown. This pt was changed over in the main ed and reported was argumentative with staff and allowed to keep her bra and shirt. digital marketing intern Sadia made aware.
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
--- NOTE | 2024-08-15 06:32 | PC.NURSE ---
pt is walking around in the pod, pt is talking to herself using inappropriate words. pt is using the N.....words in conversation with no one present. pt is still thinking if she will allow us to draw her labs still pending.
--- NOTE | 2024-08-15 07:01 | PC.NURSE ---
pt only has a purple bra on and no tank top. The bra straps looked like a sleeveless shirt,
--- NOTE | 2024-08-15 07:25 | PHA.MEDREC ---
Pharmacy Consult ? Medication Reconciliation Pharmacy has REVIEWED the medication reconciliation done by nursing.
[2024-08-15 07:41] LABS: Ethanol < 10 mg/dL
[2024-08-15 07:43] LABS: Acetaminophen LAB < 3 mcg/mL (<30); Salicylate < 5.0 mg/dL (15-30)
[2024-08-15] MEDS: Meclizine HCl 25 MG TABLET PO (07:54)
[2024-08-15] MEDS: Cyclobenzaprine HCl 10 MG TABLET PO ×2 (07:54→15:56)
[2024-08-15] MEDS: Montelukast Sodium 10 MG TABLET PO (07:54)
[2024-08-15] MEDS: Fluticasone/Vilanterol 100/25 BLST.W.DEV 1 PUFF INHALE (08:01)
[2024-08-15] MEDS: Fluticasone Propionate Nasal 16 GM SPRAY 1 SPRAY NOSTRIL-B (08:01)
--- NOTE | 2024-08-15 10:20 | PC.NURSE ---
labs obtained, medicated per mar. Patient sitting in common area watching t.v. Patient talking, responding to internal stimuli. Laughing inappropriately. Care team aware
[2024-08-15 16:16] VITALS: BP 116/73; PULSE 83; RESP 13; TEMP 37.1; O2SAT 98
--- NOTE | 2024-08-15 16:34 | MHC.EDTECH ---
patient talking to herself throughout the day today , continues to laugh and have a conversation with self .
[2024-08-15] MEDS: Atorvastatin Calcium 10 MG TABLET PO (20:24)
[2024-08-15] MEDS: Tiotropium Bromide 2.5 mcg 1 PUFF/2.5 MCG MIST.INHAL 2 PUFF INHALE (20:25)
[2024-08-15 23:23] VITALS: BP 129/87; PULSE 86; RESP 16; TEMP 36.5; O2SAT 98
--- NOTE | 2024-08-16 05:41 | PC.NURSE ---
Patient slept through the night, no distress observed/reported, meds and meals compliant. 15 minutes safety check, no behavior and safety concerns, disposition per care team is section 12 inpatient bed search, will continue to monitor
--- NOTE | 2024-08-16 07:11 | PC.NURSE ---
Assumed care of patient at 0645, patient appears to be sitting in her room, eating breakfast, no apparent distress noted. Continue plan of care for S12 IPLOC
[2024-08-16] MEDS: Fluticasone Propionate Nasal 16 GM SPRAY 1 SPRAY NOSTRIL-B (08:24)
[2024-08-16] MEDS: Tiotropium Bromide 2.5 mcg 1 PUFF/2.5 MCG MIST.INHAL 2 PUFF INHALE (08:24)
[2024-08-16] MEDS: Fluticasone/Vilanterol 100/25 BLST.W.DEV 1 PUFF INHALE (08:24)
[2024-08-16] MEDS: Montelukast Sodium 10 MG TABLET PO (08:24)
[2024-08-16 12:39] VITALS: BP 140/88; PULSE 84; RESP 20; O2SAT 97
[2024-08-16 12:44] VITALS: BMI 34.7
[2024-08-16] MEDS: Acetaminophen 325 MG TABLET 650 MG PO (13:04)
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
[2024-08-16] MEDS: hydrOXYzine HCL 25 MG TABLET PO (13:32)
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
--- NOTE | 2024-08-16 16:11 | PC.NURSE ---
PAtient provided information for involuntary admission, stated that's fine . Walked away, refused to sign information has been provided.
[2024-08-16] MEDS: Ziprasidone 40 MG CAPSULE PO ×2 (16:47→22:18)
[2024-08-16 20:00] VITALS: BP 127/64; PULSE 78; RESP 16; TEMP 36.4; O2SAT 100
[2024-08-16] MEDS: Cyclobenzaprine HCl 10 MG TABLET PO (22:18)
[2024-08-16] MEDS: Atorvastatin Calcium 10 MG TABLET PO (22:18)
[2024-08-17 07:36] VITALS: BP 136/82; PULSE 97; RESP 16; TEMP 36.7; O2SAT 98
[2024-08-17 08:28] LABS: Estimated Average Glucose 85 mg/dL; Hemoglobin A1C 88.1666 umol/L; Hemoglobin A1c % 4.6 % (<6.0); Total Hemoglobin (HGBA1C) 3337.8779 umol/L
[2024-08-17 08:32] LABS: Cholesterol 145 mg/dL (<200); HDL Cholesterol 20 mg/dL (>40); LDL Cholesterol Calculated 91 mg/dL (<100); Triglycerides 171 mg/dL (<150)
[2024-08-17 08:33] LABS: Alanine Aminotransferase 24 U/L (0-31); Albumin Level 3.9 g/dL (3.5-5.0); Alkaline Phosphatase 82 U/L (39-117); Anion Gap 9 (12-20); Aspartate Amino Transferase 20 U/L (5-31); Bilirubin Total 0.4 mg/dL (0.0-1.0); Blood Urea Nitrogen 14 mg/dL (9-16); Calcium 9.4 mg/dL (8.4-10.2); Carbon Dioxide 24 mmol/L (22-29); Chloride 111 mmol/L (96-108); Creatinine Clr Calc Pharmacy 123.1; Estimated Glomerular Filt Rate > 60; Glucose Random 110 mg/dL (60-115); Potassium 3.7 mmol/L (3.3-5.1); Sodium 140 mmol/L (135-145); Total Protein 6.9 g/dL (6.5-8.0)
[2024-08-17] MEDS: Fluticasone/Vilanterol 100/25 BLST.W.DEV 1 PUFF INHALE (08:44)
[2024-08-17] MEDS: Fluticasone Propionate Nasal 16 GM SPRAY 1 SPRAY NOSTRIL-B (08:44)
[2024-08-17] MEDS: Ziprasidone 40 MG CAPSULE PO (08:45)
[2024-08-17] MEDS: Montelukast Sodium 10 MG TABLET PO (08:45)
[2024-08-17] MEDS: busPIRone HCl 10 MG TABLET PO (08:45)
[2024-08-17] MEDS: Tiotropium Bromide 2.5 mcg 1 PUFF/2.5 MCG MIST.INHAL 2 PUFF INHALE (09:26)
[2024-08-17] MEDS: Acetaminophen 325 MG TABLET 650 MG PO ×2 (10:24→20:15)
[2024-08-17] MEDS: Ziprasidone 20 MG CAPSULE PO (11:03)
--- NOTE | 2024-08-17 14:31 | P.PNPSI_ITS ---
Subjective Subjective Date of Service: 08/17/24 Reason For Visit: Crisis Interim History: calm, cooperative. agreeable to increase geodon dosing to 60 BID and to reschedule to be with meals. per staff, remains on 12b. +RIS. referring to herself in the third person. sobbing in common area. Mental Status Exam Mental Status Exam Narrative: adequately dressed, disheveled. cooperative. no PMA/PMR. poor eye contact. speech nml rate, amount, loudness. flattened tone. thoughts linear and logical. affect constricted, normo-intense, non-labile. mood terrible. no SI/SIBI/HI/AVH expressed. Diagnostics Vital Signs (24Hr): Vital Signs - 24 hr 08/16/24 20:00 08/17/24 07:36 Temperature 97.6 F 98.1 F Pulse Rate 78 97 Respiratory Rate 16 16 Blood Pressure 127/64 136/82 Pulse Oximetry 100 98 Oxygen Delivery Method Room Air Room Air BMI result Body Mass Index 34.7 Labs 08/17/24 07:33 Labs: Laboratory Results - last 48 hr 08/17/24 07:33 Sodium 140 Potassium 3.7 Chloride 111 H Carbon Dioxide 24 Anion Gap 9 L BUN 14 Creatinine 0.66 Estim Creat Clear Calc 123.1 Estimated GFR > 60 Random Glucose 110 Estimat Average Glucose 85 Hemoglobin A1c % 4.6 Calcium 9.4 Total Bilirubin 0.4 AST 20 ALT 24 Alkaline Phosphatase 82 Total Protein 6.9 Albumin 3.9 Triglycerides 171 H Cholesterol 145 LDL Cholesterol, Calc 91 HDL Cholesterol 20 L Medications Medications Current Medications Acetaminophen (Acetaminophen 325 Mg Tablet) 650 mg PO Q6H PRN PRN Reason: Headache/Pain, Scale 1-10 Last Admin: 08/17/24 10:24 Dose: 650 mg Al Hydroxide/Mg Hydroxide (Magnesium Hydrox/Alum Hydrox 30 Ml Oral.Susp) 30 ml PO Q6H PRN PRN Reason: Heartburn/Nausea Albuterol Sulfate (Albuterol Sulfate 90 Mcg 8 Gm Inhaler) 2 puff INHALE Q4H PRN PRN Reason: bronchospasm Atorvastatin Calcium (Atorvastatin Calcium 10 Mg Tablet) 10 mg PO BEDTIME [facility] Last Admin: 08/16/24 22:18 Dose: 10 mg Buspirone HCl (Buspirone Hcl 10 Mg Tablet) 10 mg PO DAILY [facility] Last Admin: 08/17/24 08:45 Dose: 10 mg Cyclobenzaprine HCl (Cyclobenzaprine Hcl 10 Mg Tablet) 10 mg PO TID PRN PRN Reason: muscle spasm Last Admin: 08/16/24 22:18 Dose: 10 mg Fluticasone Propionate (Fluticasone Propionate Nasal 16 Gm [place]) 1 spray NOSTRIL-B DAILY [facility] Last Admin: 08/17/24 08:44 Dose: 1 spray Fluticasone/Vilanterol (Fluticasone/Vilanterol 100/25 Blst.W.Dev) 1 puff [facility] Last Admin: 08/17/24 08:44 Dose: 1 puff Hydroxyzine HCl (Hydroxyzine Hcl 25 Mg Tablet) 25 mg PO Q6H PRN PRN Reason: mild anxiety Last Admin: 08/16/24 13:32 Dose: 25 mg Loratadine (Loratadine 10 Mg Tablet) 10 mg PO DAILY PRN PRN Reason: allergy symptoms Magnesium Hydroxide (Milk Of Magnesia 30 Ml Oral.Susp) 30 ml PO DAILY PRN PRN Reason: Constipation Meclizine HCl (Meclizine Hcl 25 Mg Tablet) 25 mg PO DAILY PRN PRN Reason: for motion sickness Last Admin: 08/15/24 07:54 Dose: 25 mg Montelukast Sodium (Montelukast Sodium 10 Mg Tablet) 10 mg PO DAILY [facility] Last Admin: 08/17/24 08:45 Dose: 10 mg Nicotine (Nicotine 21 Mg Patch.Td24) 21 mg TRANSDERMA DAILY [facility] Last Admin: 08/17/24 08:45 Dose: Not Given Nicotine Polacrilex (Nicotine Polacrilex 2 Mg Gum) 4 mg BUCCAL Q2H PRN PRN Reason: Nicotine Cravings Olanzapine (Olanzapine 10 Mg Tablet) 10 mg PO Q6H PRN PRN Reason: agitation Tiotropium [place] (Tiotropium [place] 2.5 Mcg 1 Puff/2.5 Mcg Mist.Inhal) 2 puff INHALE RDAILY [facility] Last Admin: 08/17/24 09:26 Dose: 2 puff Trazodone HCl (Trazodone Hcl 50 Mg Tablet) 50 mg PO BEDTIME MRX1 PRN PRN Reason: Insomnia Ziprasidone (Ziprasidone 60 Mg Capsule) 60 mg PO BIDWM [facility] Allergies Allergies Allergy/AdvReac Type Severity Reaction Status Date / Time animal dander [PET DANDER] Allergy Unknown Itching Verified 08/14/24 01:57 bee pollen [BEE STINGS] Allergy Unknown Swelling Verified 08/14/24 01:57 house dust Allergy Unknown Unknown Verified 08/14/24 01:57 shellfish derived Allergy Unknown Swelling Verified 08/14/24 01:57 [SHELLFISH DERIVED] Seasonal Allergies Allergy Itching Verified 08/14/24 01:57 Assessment & Plan Assessment & Plan (1) Schizoaffective disorder: Status: Acute Code(s): F25.9 - Schizoaffective disorder, unspecified (2) PTSD (post-traumatic stress disorder): Status: Acute Code(s): F43.10 - Post-traumatic stress disorder, unspecified (3) Homeless: Status: Inactive Code(s): Z59.00 - Homelessness unspecified Plan Patient is a 39-year-old female with history of schizoaffective disorder and PTSD, who self presented to ER due to suicidal ideation secondary to increased depression and medication noncompliance. Plan: 12B 15 minute safety checks Obtain collateral Continue home medications per records Encourage groups Discharge planning 08/17: terrible mood due to ruminating on the past. agreeable to increase geodon to 60 per dose and change schedule to BIDWM. Reason for continued inpatient stay Substantial Risk for: harm to self and inability to function Time Spent With Patient Time: Total time managing care of this patient today __25__ minutes.
[2024-08-17] MEDS: Ziprasidone 60 MG CAPSULE PO (17:05)
[2024-08-17] MEDS: hydrOXYzine HCL 25 MG TABLET PO (17:05)
[2024-08-17 20:00] VITALS: BP 125/67; PULSE 75; RESP 16; TEMP 36.8; O2SAT 98
[2024-08-17] MEDS: Albuterol Sulfate 90 MCG 8 GM INHALER 2 PUFF INHALE (20:14)
[2024-08-17] MEDS: Atorvastatin Calcium 10 MG TABLET PO (20:15)
[2024-08-17] MEDS: Cyclobenzaprine HCl 10 MG TABLET PO (20:15)
[2024-08-17] MEDS: Nicotine Polacrilex 2 MG GUM 4 MG BUCCAL (20:27)
[2024-08-17] MEDS: Nicotine 21 MG PATCH.TD24 TRANSDERMA (20:35)
--- NOTE | 2024-08-17 20:37 | PC.NURSE ---
Nurse was given permission via tiger text from Ambika Dey to give Christle Nicotine patch at this time. Patient refused patch in the am.
[2024-08-18] MEDS: Albuterol Sulfate 90 MCG 8 GM INHALER 2 PUFF INHALE ×4 (00:49→23:31)
[2024-08-18] MEDS: Cyclobenzaprine HCl 10 MG TABLET PO ×3 (02:37→20:15)
[2024-08-18] MEDS: Milk of Magnesia 30 ML ORAL.SUSP PO (02:37)
[2024-08-18] MEDS: Acetaminophen 325 MG TABLET 650 MG PO ×3 (02:37→18:11)
[2024-08-18] MEDS: Nicotine Polacrilex 2 MG GUM 4 MG BUCCAL (02:40)
[2024-08-18] MEDS: hydrOXYzine HCL 25 MG TABLET PO (02:40)
[2024-08-18] MEDS: traZODone HCL 50 MG TABLET PO ×2 (02:40→20:15)
[2024-08-18 07:45] VITALS: BP 150/91; PULSE 88; RESP 16; TEMP 36.9; O2SAT 100
[2024-08-18] MEDS: Nicotine 21 MG PATCH.TD24 TRANSDERMA (08:04)
[2024-08-18] MEDS: Fluticasone Propionate Nasal 16 GM SPRAY 1 SPRAY NOSTRIL-B (08:04)
[2024-08-18] MEDS: Fluticasone/Vilanterol 100/25 BLST.W.DEV 1 PUFF INHALE (08:04)
[2024-08-18] MEDS: Montelukast Sodium 10 MG TABLET PO (08:04)
[2024-08-18] MEDS: busPIRone HCl 10 MG TABLET PO (08:04)
[2024-08-18] MEDS: Tiotropium Bromide 2.5 mcg 1 PUFF/2.5 MCG MIST.INHAL 2 PUFF INHALE (08:04)
[2024-08-18] MEDS: Ziprasidone 60 MG CAPSULE PO ×2 (08:04→18:11)
--- NOTE | 2024-08-18 09:45 | HO.PSYCHPN ---
Subjective Subjective Date of Service: 08/18/24 Reason For Visit: Crisis Subjective Notes: Section 12B Interim History: Active on unit. attending groups. medication compliant. Observed listening to music on unit headphones. Patient reports feeling pretty good today; pt stated, I was thinking about my ex yesterday which is why I was crying. I'm better today. I feel ready to leave tomorrow . pt denies SI/HI/VH/AH. She reports her plan to is go to [facility] in [place]. 12b up tomorrow on 08/19/24. Medication Compliance: Yes Side effects from medications: No Attending Groups: Yes Mental Status Exam Mental Status Exam Narrative: Pt is alert and oriented; behavior is cooperative, friendly and calm; dressed in casual attire; mood is described as good ; eye contact appropriate; Speech is normal rate, volume and not pressured; thought process is organized; Thought content is on discharge; denies SI/HI/VH/AH. Diagnostics Vital Signs (24Hr): Vital Signs - 24 hr 08/17/24 20:00 08/18/24 07:45 Temperature 98.2 F 98.4 F Pulse Rate 75 88 Respiratory Rate 16 16 Blood Pressure 125/67 150/91 H Pulse Oximetry 98 100 Oxygen Delivery Method Room Air Room Air BMI result Body Mass Index 34.7 Labs 08/17/24 07:33 Labs: Laboratory Results - last 48 hr 08/17/24 07:33 Sodium 140 Potassium 3.7 Chloride 111 H Carbon Dioxide 24 Anion Gap 9 L BUN 14 Creatinine 0.66 Estim Creat Clear Calc 123.1 Estimated GFR > 60 Random Glucose 110 Estimat Average Glucose 85 Hemoglobin A1c % 4.6 Calcium 9.4 Total Bilirubin 0.4 AST 20 ALT 24 Alkaline Phosphatase 82 Total Protein 6.9 Albumin 3.9 Triglycerides 171 H Cholesterol 145 LDL Cholesterol, Calc 91 HDL Cholesterol 20 L Medications Medications Current Medications Acetaminophen (Acetaminophen 325 Mg Tablet) 650 mg PO Q6H PRN PRN Reason: Headache/Pain, Scale 1-10 Last Admin: 08/18/24 09:25 Dose: 650 mg Al Hydroxide/Mg Hydroxide (Magnesium Hydrox/Alum Hydrox 30 Ml Oral.Susp) 30 ml PO Q6H PRN PRN Reason: Heartburn/Nausea Albuterol Sulfate (Albuterol Sulfate 90 Mcg 8 Gm Inhaler) 2 puff INHALE Q4H PRN PRN Reason: bronchospasm Last Admin: 08/18/24 00:49 Dose: 2 puff Atorvastatin Calcium (Atorvastatin Calcium 10 Mg Tablet) 10 mg PO BEDTIME [facility] Last Admin: 08/17/24 20:15 Dose: 10 mg Buspirone HCl (Buspirone Hcl 10 Mg Tablet) 10 mg PO DAILY [facility] Last Admin: 08/18/24 08:04 Dose: 10 mg Cyclobenzaprine HCl (Cyclobenzaprine Hcl 10 Mg Tablet) 10 mg PO TID PRN PRN Reason: muscle spasm Last Admin: 08/18/24 09:25 Dose: 10 mg Fluticasone Propionate (Fluticasone Propionate Nasal 16 Gm [place]) 1 spray NOSTRIL-B DAILY [facility] Last Admin: 08/18/24 08:04 Dose: 1 spray Fluticasone/Vilanterol (Fluticasone/Vilanterol 100/25 Blst.W.Dev) 1 puff INHALE RDAILY [facility] Last Admin: 08/18/24 08:04 Dose: 1 puff Hydroxyzine HCl (Hydroxyzine Hcl 25 Mg Tablet) 25 mg PO Q6H PRN PRN Reason: mild anxiety Last Admin: 08/18/24 02:40 Dose: 25 mg Loratadine (Loratadine 10 Mg Tablet) 10 mg PO DAILY PRN PRN Reason: allergy symptoms Magnesium Hydroxide (Milk Of Magnesia 30 Ml Oral.Susp) 30 ml PO DAILY PRN PRN Reason: Constipation Last Admin: 08/18/24 02:37 Dose: 30 ml Meclizine HCl (Meclizine Hcl 25 Mg Tablet) 25 mg PO DAILY PRN PRN Reason: for motion sickness Last Admin: 08/15/24 07:54 Dose: 25 mg Montelukast Sodium (Montelukast Sodium 10 Mg Tablet) 10 mg PO DAILY [facility] Last Admin: 08/18/24 08:04 Dose: 10 mg Nicotine (Nicotine 21 Mg Patch.Td24) 21 mg TRANSDERMA DAILY [facility] Last Admin: 08/18/24 08:04 Dose: 21 mg Nicotine Polacrilex (Nicotine Polacrilex 2 Mg Gum) 4 mg BUCCAL Q2H PRN PRN Reason: Nicotine Cravings Last Admin: 08/18/24 02:40 Dose: 4 mg Olanzapine (Olanzapine 10 Mg Tablet) 10 mg PO Q6H PRN PRN Reason: agitation Tiotropium [place] (Tiotropium [place] 2.5 Mcg 1 Puff/2.5 Mcg Mist.Inhal) 2 puff INHALE RDAILY [facility] Last Admin: 08/18/24 08:04 Dose: 2 puff Trazodone HCl (Trazodone Hcl 50 Mg Tablet) 50 mg PO BEDTIME MRX1 PRN PRN Reason: Insomnia Last Admin: 08/18/24 02:40 Dose: 50 mg Ziprasidone (Ziprasidone 60 Mg Capsule) 60 mg PO BIDWM [facility] Last Admin: 08/18/24 08:04 Dose: 60 mg Allergies Allergies Allergy/AdvReac Type Severity Reaction Status Date / Time animal dander [PET DANDER] Allergy Unknown Itching Verified 08/14/24 01:57 bee pollen [BEE STINGS] Allergy Unknown Swelling Verified 08/14/24 01:57 house dust Allergy Unknown Unknown Verified 08/14/24 01:57 shellfish derived Allergy Unknown Swelling Verified 08/14/24 01:57 [SHELLFISH DERIVED] Seasonal Allergies Allergy Itching Verified 08/14/24 01:57 Assessment & Plan Assessment & Plan (1) Schizoaffective disorder: Status: Acute Code(s): F25.9 - Schizoaffective disorder, unspecified (2) PTSD (post-traumatic stress disorder): Status: Acute Code(s): F43.10 - Post-traumatic stress disorder, unspecified (3) Homeless: Status: Inactive Code(s): Z59.00 - Homelessness unspecified Plan Patient is a 39-year-old female with history of schizoaffective disorder and PTSD, who self presented to ER due to suicidal ideation secondary to increased depression and medication noncompliance. Plan: 12B 15 minute safety checks Obtain collateral Continue home medications per records Encourage groups Discharge planning 08/17: terrible mood due to ruminating on the past. agreeable to increase geodon to 60 per dose and change schedule to BIDWM. 08/18: Active on unit. attending groups. medication compliant. Observed listening to music on unit headphones. Patient reports feeling pretty good today; pt stated, I was thinking about my ex yesterday which is why I was crying. I'm better today. I feel ready to leave tomorrow . pt denies SI/HI/VH/AH. She reports her plan to is go to [facility]. 12b up tomorrow on 08/19/24. Patient educated on: diagnosis and medication risk/benefits Reason for continued inpatient stay Substantial Risk for: stable for discharge Time Spent With Patient Time: Total time managing care of this patient today _20___ minutes.
[2024-08-18 19:50] VITALS: BP 132/67; PULSE 90; RESP 18; TEMP 36.5; O2SAT 99
[2024-08-18] MEDS: Atorvastatin Calcium 10 MG TABLET PO (20:15)
[2024-08-19] MEDS: hydrOXYzine HCL 25 MG TABLET PO (02:24)
[2024-08-19 07:53] VITALS: BP 130/76; PULSE 84; TEMP 37.1; O2SAT 99
[2024-08-19] MEDS: Nicotine 21 MG PATCH.TD24 TRANSDERMA (08:24)
[2024-08-19] MEDS: Montelukast Sodium 10 MG TABLET PO (08:26)
[2024-08-19] MEDS: busPIRone HCl 10 MG TABLET PO (08:26)
[2024-08-19] MEDS: Ziprasidone 60 MG CAPSULE PO (08:26)
[2024-08-19] MEDS: Fluticasone/Vilanterol 100/25 BLST.W.DEV 1 PUFF INHALE (08:28)
[2024-08-19] MEDS: Fluticasone Propionate Nasal 16 GM SPRAY 1 SPRAY NOSTRIL-B (08:29)
[2024-08-19] MEDS: Tiotropium Bromide 2.5 mcg 1 PUFF/2.5 MCG MIST.INHAL 2 PUFF INHALE (08:49)
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
== END 2024-08-19 10:08 | disposition home or self-care (01) | DRG 885 ==
LOC: HO.ED 08-16 12:20 → HO.PADLT16 08-16 12:29
PROVIDERS: Physician Assistant; Admitting Provider Registered Nurse; Emergency Provider Internal Medicine; Responsible Provider Registered Nurse; Visit Provider Psychiatry & Neurology Psychiatry
DX: F25.9 Schizoaffective disorder, unspecified (principal); R45.851 Suicidal ideations; Z59.02 Unsheltered homelessness; F43.10 Post-traumatic stress disorder, unspecified; Z79.51 Long term (current) use of inhaled steroids; Z79.899 Other long term (current) drug therapy
CPT/HCPCS: 36415; 80053; 80061; 80143; 80179; 80307; 81001; 81025; 83036; 99285; S9485

== ENCOUNTER → 2024-08-16 12:28 | Outpatient (BNV) | payer OTHER, SELFPAY | PROVIDERS: Admitting Provider Registered Nurse; Emergency Provider Internal Medicine; Responsible Provider Registered Nurse; Visit Provider Registered Nurse | DX: F25.1 Schizoaffective disorder, depressive type (principal); F43.11 Post-traumatic stress disorder, acute; Z59.00 Homelessness unspecified | CPT/HCPCS: 90792; 99231; 99232; 99238 ==

== ENCOUNTER 2024-08-23 01:10 | Emergency (ER) | payer OTHER, SELFPAY ==
--- NOTE | 2024-08-23 01:19 | ED_ITS ---
HPI - Abdominal Pain General Chief Complaint: Abdominal Pain Stated Complaint: ABDOMINAL PAIN Time Seen by Provider: 08/23/24 01:19 Source: patient Mode of arrival: EMS Limitations: no limitations History of Present Illness ED Provider: HPI narrative: Patient is homeless comes here with history of been here frequently to sleep and rest for no significant medical reason this time she said she has abdominal pain and constipation but she had a CAT scan done few days ago which was negative and labs for now no nausea no vomiting when examined patient was sleeping without any distress Related Data Previous Rx's ?Medication ?Instructions ?Recorded fluticasone propionate 50 1 spray intranasal DAILY 30 days 04/27/24 mcg/actuation nasal #16 grams spray,suspension (Flonase Allergy Relief) meclizine 25 mg tablet 25 mg PO DAILY PRN for motion 04/27/24 sickness #90 tabs umeclidinium 62.5 mcg/actuation 1 inh inhalation BEDTIME 30 days 04/27/24 blister powder for inhalation #30 ea cetirizine 10 mg tablet (All Day 10 mg PO DAILY PRN allergy 06/02/24 Allergy (cetirizine)) symptoms 90 days #90 tabs cyclobenzaprine 10 mg tablet 10 mg PO TID PRN muscle spasm 30 06/02/24 days #90 tabs albuterol sulfate 90 mcg/actuation 2 puff PO Q4H PRN bronchospasm 30 08/18/24 aerosol inhaler (Ventolin HFA) days #8.5 grams atorvastatin 10 mg tablet 10 mg PO BEDTIME 30 days #30 tabs 08/18/24 buspirone 10 mg tablet 10 mg PO DAILY 30 days #30 tabs 08/18/24 fluticasone propionate 115 2 puff inhalation BID 30 days #12 08/18/24 mcg-salmeterol 21 mcg/actuation grams HFA inhaler (Advair HFA) montelukast 10 mg tablet 10 mg PO DAILY 30 days #30 tabs 08/18/24 ziprasidone HCl 60 mg capsule 60 mg PO BIDWM 30 days #60 caps 08/18/24 Allergies Allergy/AdvReac Type Severity Reaction Status Date / Time animal dander [PET DANDER] Allergy Unknown Itching Verified 08/24/24 23:22 bee pollen [BEE STINGS] Allergy Unknown Swelling Verified 04/22/25 23:22 house dust Allergy Unknown Unknown Verified 08/24/24 23:22 shellfish derived Allergy Unknown Swelling Verified 08/24/24 23:22 [SHELLFISH DERIVED] Seasonal Allergies Allergy Itching Verified 08/24/24 23:22 Review of Systems Review of Systems Yes all other systems are reviewed and are negative [facility] Past Medical History Medical History Suicidal ideation Bipolar disorder Severe asthma with allergic rhinitis Allergic rhinitis Vertigo Surgical History No pertinent past surgical history Family History Family History Father Lung cancer CVD (cardiovascular disease) Mother Past heart attack Diabetes Emphysema lung CVD (cardiovascular disease) Family/Other FH: mental illness Maternal Grandmother No problems noted. Paternal Grandmother No problems noted. 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 Oriented X3. No acute distress. Eyes: PERRLA, No Nystagmus ENT: Pharynx normal. Oral Mucosa moist Neck: Normal inspection. Neck supple. CVS: Normal heart rate and rhythm. Pulses normal. Respiratory: No respiratory distress. Equal air entry bilateral, no wheezing/rales/rhonchi Abdomen: Soft and nontender. Bowel sounds are present, no mass palpable, no CVA tenderness Skin: Skin warm and dry. Normal skin color. Normal skin turgor. Extremities: No lower extremity edema. No calf tenderness Neuro: Oriented X 3. No motor deficit. No sensory deficit.No cerebellar signs , cranial nerves II-XII intact Medical Decision Making Medical Decision Making [facility] Narrative: Patient is homeless with multiple complaints with constipation stool softener were given discharge patient home Discharge Plan Discharge Clinical Impression: Abdominal pain, chronic, generalized, Homeless Patient Disposition: Home, Self-Care Instructions: Chronic Abdominal Pain (ED) Additional Instructions: Follow up your with your PCP Find fdc to stay Prescriptions: No Action cetirizine [All Day Allergy (cetirizine)] 10 mg tablet 10 mg PO DAILY PRN (Reason: allergy symptoms) 90 Days Qty: 90 1RF cyclobenzaprine 10 mg tablet 10 mg PO TID PRN (Reason: muscle spasm) 30 Days Qty: 90 3RF ziprasidone HCl 60 mg Capsule 60 mg PO BIDWM 30 Days Qty: 60 0RF buspirone 10 mg Tablet 10 mg PO DAILY 30 Days Qty: 30 0RF atorvastatin 10 mg tablet 10 mg PO BEDTIME 30 Days Qty: 30 0RF montelukast 10 mg tablet 10 mg PO DAILY 30 Days Qty: 30 0RF albuterol sulfate [Ventolin HFA] 90 mcg/actuation HFA aerosol inhaler 2 puff PO Q4H PRN (Reason: bronchospasm) 30 Days Qty: 8.5 0RF fluticasone propion-salmeterol [Advair HFA] 115-21 mcg/actuation HFA aerosol inhaler 2 puff inhalation BID 30 Days Qty: 12 0RF meclizine 25 mg tablet 25 mg PO DAILY PRN (Reason: for motion sickness) Qty: 90 2RF fluticasone propionate [Flonase Allergy Relief] 50 mcg/actuation spray,suspension 1 spray intranasal DAILY 30 Days Qty: 16 5RF Rx Instructions: administer into each nostril umeclidinium 62.5 mcg/actuation blister with device 1 inh INHALATION BEDTIME 30 Days Qty: 30 6RF Interventions: ED Discharge Assessment Last Done: 08/23/24 06:21 Discharge Date/Time: 08/23/24 06:23 Print Language: Kiswahili
[2024-08-23 01:24] VITALS: BP 116/48; BP 144/84; PULSE 73; PULSE 86; RESP 18; TEMP 36.6; O2SAT 97; O2SAT 98; BMI 37.3
[2024-08-23 01:29] VITALS: BP 116/48; PULSE 73; RESP 18; TEMP 36.6; O2SAT 97
--- OUTSIDE RECORDS SUMMARY | 2024-08-23 01:50 | XMS_ITS | Clinical Summary ---
Author Organization [facility] Address [address] [place] [address] Phone Care Team Providers Care Research Group Director Name Role Phone Physician, Pcp Unknown Primary Care Provider Mendy vailable Allergies No known active allergies Encounters Date Type Department Care Team Description 08/02/2024 12:35 AM EDT - 08/02/2024 7:[address] [facility] Emergency [address] [place] [address] Discharge Disposition: Home or Self [...] age to complete this topic Insurance [facility] Member Subscriber Plan / Payer (Ef fective 2024-Present) Name:Samaria Corley Member ID:[id number] Relation to Subscriber:Self Name:Samaria Corley Subscriber ID:[id number] Payer ID:[id number] Group ID:Not on file Type:Not on file Address: [facility] [address] [address] Care Teams Research Group Director Relationship Specialty Start Date End Date Physician, Pcp Unknown PCP - General 08/02/24
--- OUTSIDE RECORDS SUMMARY | 2024-08-23 01:50 | XMS_ITS | Clinical Summary ---
Author Organization [facility] Address [address] [place] [address] Care Team Providers Care Solar Sales Consultant Name Role Phone Roxie Guevara MD Primary Care Provider [phone] Allergies Active Allergy Reactions Criticality Noted Date Comments Bee Venom Anaphylaxis High 01/10/2024 Shellfish-Derived Products Anaphylaxis High 01/10/20 24 Medications acetaminophen (TYLENOL) 650 MG CR tablet Take 1 tablet (650 mg total) by mouth 3 times daily (every 8 hours) as needed. for pain 4 Active Ventolin HFA 108 (90 Base) MCG/ACT inhaler Inhale 2 puffs every 4 (four) hours as needed for wheezing or shortness of breath. 4 Active amLODIPine (NORVASC) 5 MG tablet 4 Active atorvastatin (LIPITOR) 10 MG tablet Take 1 tablet (10 mg total) by mouth nightly. 4 Active busPIRone (BUSPAR) 30 MG tablet Take 1 tablet (30 mg total) by mouth 2 times a day. 4 Active cyclobenzaprine (FLEXERIL) 10 MG tablet Take 1 tablet (10 mg total) by mouth 3 (three) times a day as needed. for muscle spams 4 Active fluticasone (FloNASE) 50 mcg/spray nasal spray INSTILL 1 SPRAY IN EACH NOSTRIL ONCE DAILY 4 Active Advair HFA 115-21 MCG/ACT inhaler INHALE 2 PUFFS TWICE DAILY. RINSE MOUTH AFTER USING. 4 Active meclizine (ANTIVERT) 25 MG tablet TAKE 1 TABLET BY MOUTH DAILY NEEDED FOR MOTION SICKNESS 4 Active montelukast (SINGULAIR) 10 MG tablet Take 1 tablet (10 mg total) by mouth. 4 Active OMEprazole (PriLOSEC) 20 MG capsule Take by mouth. 4 Active sertraline (ZOLOFT) 50 MG tablet Take 1 tablet (50 mg total) by mouth every morning. 4 Active topiramate (TOPAMAX) 50 MG tablet Take 1 tablet (50 mg total) by mouth nightly. 4 Active traZODone (DESYREL) 100 MG tablet TAKE 1 OR 2 TABLETS BY MOUTH EVERY DAY AT BEDTIME NEEDED 4 Active LORazepam (ATIVAN) 2 MG tabletIndicatio ns:Alcohol use Take 1 tablet (2 mg total) by mouth every 4 (four) hours. 2 tablet 4 Active LORazepam (ATIVAN) 2 MG tabletIndicatio ns:Alcohol use Take 1 tablet (2 mg total) by mouth every 8 (eight) hours around the clock. Do not start before January 14, 2024. 3 tablet 4 Active LORazepam (ATIVAN) 2 MG tabletIndicatio ns:Alcohol use Take 1 tablet (2 mg total) by mouth every 12 (twelve) hours around the clock. Do not start before January 14, 2024. 2 tablet 4 Active ziprasidone (GEODON) 40 MG capsuleIndicati ons:Bipolar I disorder, recurrent manic episode (HCC) Take 1 capsule (40 mg total) by mouth 2 (two) times a day with meals. 4 Active Active Problems Problem Noted Date Diagnosed Date Bipolar 1 disorder 01/11/2024 PTSD (post-traumatic stress disorder) 01/11/2024 Alcohol use 01/11/2024 Altered mental status 01/11/2024 Social History Tobacco Use Types Packs/Day Years Used Date Smoking Tobacco: Never Assessed Tobacco Cessation:Counseling Given: Not Answered [facility] Utilities Answer Date Recorded In the past 12 months has [employer], [place], or water [employer] threatened to shut off services in your [...] place to sleep or slept in a [place] (including now)? No 01/13/2024 Comments Unknown Sex and Gender Information Value Date Recorded Sex Assigned at Female 01/10/2024 5:39 PM EDT Legal Sex Female 6:33 PM EST Gender Identity Female 01/10/2024 5:39 PM EDT [...] Mammogram 2023 Influenza Vaccine 12/04/2023 COVID-19 Vaccine (1 - 2023-2 5 season) 2024 HPV Vaccines Aged Out No longer eligi ble based on patient's age to complete this topic Pneumococcal Vaccine: Pediat elton (0-5 Years) and At-Risk Patients (6 to 49 Years) Aged Out No longer eligible b ased on patient's age to complete this topic Insurance MEDICARE PART A & B [facility] [place] OUT OF NETWORK [facility] Advance Directives * Full Code (Latest Code Status on File) Date Activated Date Inactivated Comments 01/11/2024 12:44 PM Care Teams Solar Sales Consultant Relationship Specialty Start Date End Date Roxie Guevara MD [address] [place] [address] PCP - General Family Medicine 01/13/24
[2024-08-23 04:02] VITALS: BP 148/87; PULSE 73; RESP 18; TEMP 36.9; O2SAT 98
[2024-08-23 06:01] VITALS: BP 134/86; PULSE 78; RESP 16; TEMP 36.6; O2SAT 95
[2024-08-23 06:21] VITALS: BP 134/86; PULSE 78; RESP 16; TEMP 36.6; O2SAT 95
== END 2024-08-23 06:23 | disposition home or self-care (01) ==
PROVIDERS: Emergency Provider Internal Medicine
DX: R10.2 Pelvic and perineal pain (principal); K59.00 Constipation, unspecified; Z79.899 Other long term (current) drug therapy
CPT/HCPCS: 99283; 99284

== ENCOUNTER 2024-08-24 22:59 | Emergency (ER) | payer OTHER, SELFPAY ==
[2024-08-24 23:07] VITALS: BP 142/8; PULSE 94; O2SAT 97
[2024-08-24 23:20] VITALS: BP 120/67; PULSE 86; RESP 16; TEMP 36.7; O2SAT 93; BMI 44.0
--- NOTE | 2024-08-24 23:55 | PC.NURSE ---
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 patient was falling asleep multiple times and smelled strongly of marijuana which prompted nchange over. patient then stated im leaving and went to the exit. vitals were stable at time of triage and ambulated with steady gait.
--- OUTSIDE RECORDS SUMMARY | 2024-08-25 00:02 | XMS_ITS | Clinical Summary ---
Author Organization [facility] Address [address] [place] [address] Phone Care Team Providers Care Order Taker Name Role Phone Physician, Pcp Unknown Primary Care Provider Mendy vailable Allergies No known active allergies Encounters Date Type Department Care Team Description 08/02/2024 12:35 AM EDT - 08/02/2024 7:08 AM EDT Emergency [facility] Emergency [address] [place] [address] Discharge Disposition: Home or Self [...] patient's age to complete this topic Insurance [facility] Member Subscriber Plan / Payer (Ef fective 2024-Present) Name:Samaria Corley Member ID:[id number] Relation to Subscriber:Self Name:Samaria Corley Subscriber ID:[id number] Payer ID:[id number] Group ID:Not on file Type:Not on file Address: [facility] [address] [address] Care Teams Order Taker Relationship Specialty Start Date End Date Physician, Pcp Unknown PCP - General 08/02/24
== END 2024-08-24 23:59 | disposition left against medical advice (07) ==
PROVIDERS: Emergency Provider Emergency Medicine
DX: R10.2 Pelvic and perineal pain (principal)
CPT/HCPCS: 99281

== ENCOUNTER 2024-08-28 08:46 | Emergency (ER) | payer OTHER, SELFPAY ==
[2024-08-28 08:57] VITALS: BP 126/71; PULSE 80; RESP 20; TEMP 36.6; O2SAT 100; BMI 37.7
--- NOTE | 2024-08-28 09:07 | ED_ITS ---
HPI - Psych General Chief Complaint: Psychiatric Symptoms Stated Complaint: ANXIETY Time Seen by Provider: 08/28/24 08:49 Source: patient, EMS, RN notes reviewed and old records reviewed Mode of arrival: EMS Limitations: no limitations History of Present Illness ED Provider: Tawny HPI Narrative: Patient is a 39-year-old female with history of bipolar disorder, schizoaffective disorder, PTSD, depression, asthma presenting to the emergency department with complaint of homicidal ideation. States that she is hearing auditory hallucinations to harm others and has a plan to burn or stab them amongst other things. She denies suicidal ideation, visual hallucinations. Complains of bilateral knee pain. MD complaint: homicidal ideation Related Data Previous Rx's ?Medication ?Instructions ?Recorded fluticasone propionate 50 1 spray intranasal DAILY 30 days 04/27/24 mcg/actuation nasal #16 grams spray,suspension (Flonase Allergy Relief) meclizine 25 mg tablet 25 mg PO DAILY PRN for motion 04/27/24 sickness #90 tabs umeclidinium 62.5 mcg/actuation 1 inh inhalation BEDTIME 30 days 04/27/24 blister powder for inhalation #30 ea cetirizine 10 mg tablet (All Day 10 mg PO DAILY PRN allergy 06/02/24 Allergy (cetirizine)) symptoms 90 days #90 tabs cyclobenzaprine 10 mg tablet 10 mg PO TID PRN muscle spasm 30 06/02/24 days #90 tabs albuterol sulfate 90 mcg/actuation 2 puff PO Q4H PRN bronchospasm 30 08/18/24 aerosol inhaler (Ventolin HFA) days #8.5 grams atorvastatin 10 mg tablet 10 mg PO BEDTIME 30 days #30 tabs 08/18/24 buspirone 10 mg tablet 10 mg PO DAILY 30 days #30 tabs 08/18/24 fluticasone propionate 115 2 puff inhalation BID 30 days #12 08/18/24 mcg-salmeterol 21 mcg/actuation grams HFA inhaler (Advair HFA) montelukast 10 mg tablet 10 mg PO DAILY 30 days #30 tabs 08/18/24 ziprasidone HCl 60 mg capsule 60 mg PO BIDWM 30 days #60 caps 08/18/24 Allergies Allergy/AdvReac Type Severity Reaction Status Date / Time animal dander [PET DANDER] Allergy Unknown Itching Verified 08/28/24 08:58 bee pollen [BEE STINGS] Allergy Unknown Swelling Verified 08/28/24 08:58 house dust Allergy Unknown Unknown Verified 08/28/24 08:58 shellfish derived Allergy Unknown Swelling Verified 08/28/24 08:58 [SHELLFISH DERIVED] Seasonal Allergies Allergy Itching Verified 08/28/24 08:58 Review of Systems 2 Review of Systems: as per hpi Yes all other systems are reviewed and are negative Constitutional: Constitutional: Reports as per HPI PMFSH Past Medical History Medical History Suicidal ideation Bipolar disorder Severe asthma with allergic rhinitis Allergic rhinitis Vertigo Surgical History No pertinent past surgical history Family History Family History Father Lung cancer CVD (cardiovascular disease) Mother Past heart attack Diabetes Emphysema lung CVD (cardiovascular disease) Family/Other FH: mental illness Maternal Grandmother No problems noted. Paternal Grandmother No problems noted. Social History Social History Household Members: Significant Other Housing: Apartment Do you presently have visiting nurse or other home services: No Unable to assess alcohol history related to: Refusing to respond Alcohol intake: current Alcohol intake frequency: 3 or more drinks per day Alcohol type: beer and hard liquor Comment: close observations at night Patient Tobacco Use Status: Refuse Tobacco use screen Tobacco use type: Cigarette Cigarette Packs Per Day: 1.5 Cigarettes Per Day: 30.0 Years Smoked: 19 Smoked in Last 30 Days: Yes e-Cigarette/Vaping Use: Never Used Second Hand Smoke Exposure: No Use of substances other than those prescribed or required for medical reasons: Yes Substance Use Type: Crack/Cocaine, Heroin and Marijuana Substance Use Frequency: Chronic Longstanding Last Used Substance: Days (ago) Any prior treatment program specific to substance use: Yes Advance Directives: No Advance Directives Information Provided: No Do you have a plan to hurt others: Vague Patient : No service: No Current occupational status: unemployed Sexual orientation: Straight/Heterosexual Cognitive needs: No Hearing needs: No Vision needs: No Physical Exam 2 Vital Signs: Vital Signs: Last Vital Signs Temp 98.7 F 08/28/24 16:07 Pulse 85 08/28/24 16:07 Resp 13 08/28/24 16:07 BP 140/75 H 08/28/24 16:07 Pulse Ox 96 08/28/24 16:07 O2 Del Method Room Air 08/28/24 16:07 BMI result Body Mass Index 37.7 Vital signs have been reviewed and appear to be correct. Blood pressure normal. Heart rate normal. Respiratory rate normal. Temperature normal. Oxygen saturation normal. Const: General: cooperative, healthy appearing and no acute distress O rientation/consciousness: oriented to person, oriented to place, oriented to time and patient oriented x3 Limitations: no limitations HEENT: Head: Yes normocephalic and Yes atraumatic Ears: external ears normal General nose exam: Normal external nose present Face and sinus: Yes face symmetric Mouth: oropharynx normal and moist mucous membranes Throat: Yes uvula midline Eyes: Pupils: Equal, round and reactive pupils present Neck: Neck: Yes normal visual inspection and Yes supple Resp: Effort & Inspection: normal respiratory effort and able to speak in complete sentences Auscultation: clear to auscultation bilaterally Cardio: Rate: regular rate Rhythm: regular rhythm Heart sounds: S1 normal heart sound present and S2 normal heart sound present GI: Palpation (GI): Soft to palpation and nontender Auscultation: n ormoactive bowel sounds : General: Yes no CVA tenderness Back/Spine/Pelvis: Back: no CVA tenderness Skin: General skin exam: elasticity normal and turgor normal Neuro: General: oriented to person, oriented to place, oriented to time, patient oriented x3, moves all extremities, no focal motor deficits and CN's II- XI intact bilaterally Cranial nerves: Yes Equal, round and reactive pupils present Cognition (Neuro): normal cognition Extrem: General: Yes full ROM, Yes no pedal edema and Yes no calf tenderness Psych: Mental Status: mental status grossly normal Speech and movement: N ormal speech and movement present Affect: normal affect Attitude: c ooperative Thought process: Normal thought process present Thought content: suicidality, Homicidality present and Hallucination(s) present auditory; not visual Course Reevaluation(s) Reevaluation #1: Per CARE team, patient will be inpatient bed search. Time: 18:35 Medications Administered Discontinued Medications Generic Name Dose Route Start Last Admin Trade Name Shaheed PRN Reason Stop Dose Admin Potassium Chloride 40 meq 08/28/24 11:12 08/28/24 11:54 Potassium Chloride Packet 20 Meq Packet PO 08/28/24 11:13 40 meq ONCE ONE Administration Medical Decision Making Medical Decision Making [facility] Narrative: Patient is a 39-year-old female with history of bipolar disorder, schizoaffective disorder, PTSD, depression, asthma presenting to the emergency department with complaint of homicidal ideation. On exam patient is awake, A+Ox3, VS WNL, afebrile, normal neurological exam without focal deficits, physical exam findings as above. Given reported symptoms and physical exam findings, initial differential includes but is not limited to homicidal ideation, bipolar disorder, schizoaffective disorder. Labs notable for slight hypokalemia, PO replacement ordered. Ethanol negative. Viral panel negative. Will medically clear patient at this time and place on physician observation for CARE team eval. Differential Diagnosis Differential Diagnoses: The differential diagnosis associated with the presentation includes As per [facility] Admission/Observation Consideration of admission/observation: Escalation of care including admission/observation considered Consult Healthcare Provider Management of the patient was discussed with: Behavioral Health Provider Lab Data [facility] Lab Attestation statement: I reviewed the patient's lab results. As per [facility] 08/28/24 09:39 08/28/24 09:39 Labs: Lab Results 08/28/24 08/28/24 Range/Units 09:39 13:13 WBC 10.2 (4.8-10.8) X10*3/uL RBC 3.76 L (4.20-5.50) X10*6/uL Hgb 11.2 L (12.0-16.0) g/dl Hct 33.5 L (37.0-47.0) % MCV 89.1 (80.0-98.0) fL MCH 29.8 (27.0-33.0) pg MCHC 33.4 (31.0-35.0) g/dl RDW 12.6 (11.0-16.0) % Plt Count 394 (160-400) X10*3/uL MPV 9.1 L (9.4-12.3) fL Immature Gran % (Auto) 0.7 H (0.0-0.4) % Neut % (Auto) 65.6 (45-73) % Lymph % (Auto) 27.2 (20-40) % Arroyo % (Auto) 4.7 (2-11) % Eos % (Auto) 1.3 (0-4) % Baso % (Auto) 0.5 (0-2) % Lymph # (Auto) 2.8 (1.2-4.9) X10*3/uL [place] # (Auto) 0.5 (0.1-1.2) X10*3/uL Eos # (Auto) 0.1 (0.0-0.4) X10*3/uL Baso # (Auto) 0.1 (0.0-0.2) X10*3/uL Abs Immat Gran (auto) 0.07 H (0.00-0.03) X10*3/uL Absolute Neuts (auto) 6.7 (2.0-8.3) x10*3/uL Absolute Nucleated RBC 0.000 (0.0-0.012) X10*3/uL Nucleated RBC % (auto) 0.0 (0.0-0.2) /100WBC Sodium 142 (135-145) mmol/L Potassium 3.2 L (3.3-5.1) mmol/L Chloride 110 H (96-108) mmol/L Carbon Dioxide 27 (22-29) mmol/L Anion Gap 8 L (12-20) BUN 9 (9-16) mg/dL Creatinine 0.71 (0.5-1.4) mg/dL Estim Creat Clear Calc 110.9 Estimated GFR > 60 Random Glucose 105 (60-115) mg/dL Calcium 9.1 (8.4-10.2) mg/dL Total Bilirubin 0.3 (0.0-1.0) mg/dL AST 18 (5-31) U/L ALT 19 (0-31) U/L Alkaline Phosphatase 80 (39-117) U/L Total Protein 6.4 L (6.5-8.0) g/dL Albumin 3.8 (3.5-5.0) g/dL Beta HCG, Quant < 2 mIU/mL Urine Color Yellow Urine Appearance Clear Urine pH 6.5 (5.0-9.0) Ur Specific [facility] 1.015 (1.005-1.025) Urine Protein Negative (Neg-Trace) mg/dL Urine Glucose (UA) Negative (Negative) mg/dL Urine Ketones Trace (Negative) mg/dL Urine Blood Moderate (2+) H (Negative) Urine Nitrite Negative (Negative) Ur Leukocyte Esterase Trace H (Negative) Urine RBC 6-10 H (0-2) /HPF Urine WBC 0-5 (0-5) /HPF Ur Squamous Epith Cells 3-5 (0-2) /HPF Urine Bacteria None Seen (None Seen) Hyaline Casts 0-2 (0-2) /LPF Urine Opiates Screen Not Detected (Not Detect) Ur Buprenorphine Scrn Not Detected (Not Detect) ng/mL Ur Oxycodone Screen Not Detected (Not Detect) ng/mL Urine Methadone Screen Not Detected (Not Detect) ng/mL Urine Fentanyl Screen Not Detected (Not Detect) Ur Barbiturates Screen Not Detected (Not Detect) Ur Phencyclidine Scrn Not Detected (Not Detect) Ur Amphetamines Screen Not Detected (Not Detect) U Benzodiazepines Scrn Not Detected (Not Detect) Urine Cocaine Screen Not Detected (Not Detect) U Marijuana (THC) Screen POSITIVE H (Not Detect) Ethyl Alcohol < 10 mg/dL Influenza Type A (PCR) NEGATIVE (Negative) Influenza Type B (PCR) NEGATIVE (Negative) RSV RNA Qual (PCR) NEGATIVE (Negative) SARS-CoV-2 RNA (RT-PCR) NEGATIVE (Negative) External Record Review External record reviewed: Inpatient record, Office record and Outpatient record Discharge Plan Discharge Clinical Impression: Homicidal ideation, Schizoaffective disorder Bipolar disorder Qualifiers: Active/Remission status: remission status unspecified Qualified Code(s): F31.9 - Bipolar disorder, unspecified Prescriptions: No Action cetirizine [All Day Allergy (cetirizine)] 10 mg tablet 10 mg PO DAILY PRN (Reason: allergy symptoms) 90 Days Qty: 90 1RF cyclobenzaprine 10 mg tablet 10 mg PO TID PRN (Reason: muscle spasm) 30 Days Qty: 90 3RF ziprasidone HCl 60 mg Capsule 60 mg PO BIDWM 30 Days Qty: 60 0RF buspirone 10 mg Tablet 10 mg PO DAILY 30 Days Qty: 30 0RF atorvastatin 10 mg tablet 10 mg PO BEDTIME 30 Days Qty: 30 0RF montelukast 10 mg tablet 10 mg PO DAILY 30 Days Qty: 30 0RF albuterol sulfate [Ventolin HFA] 90 mcg/actuation HFA aerosol inhaler 2 puff PO Q4H PRN (Reason: bronchospasm) 30 Days Qty: 8.5 0RF fluticasone propion-salmeterol [Advair HFA] 115-21 mcg/actuation HFA aerosol inhaler 2 puff inhalation BID 30 Days Qty: 12 0RF meclizine 25 mg tablet 25 mg PO DAILY PRN (Reason: for motion sickness) Qty: 90 2RF fluticasone propionate [Flonase Allergy Relief] 50 mcg/actuation spray,suspension 1 spray intranasal DAILY 30 Days Qty: 16 5RF Rx Instructions: administer into each nostril umeclidinium 62.5 mcg/actuation blister with device 1 inh INHALATION BEDTIME 30 Days Qty: 30 6RF Interventions: [place]-Suicide Risk Severity Scale Last Done: 08/28/24 09:06 Print Language: Trinidadian
--- OUTSIDE RECORDS SUMMARY | 2024-08-28 09:34 | XMS_ITS | Clinical Summary ---
Author Organization [facility] Address [address] [place] [address] Phone Care Team Providers Care Tabulating Clerk Name Role Phone Physician, Pcp Unknown Primary Care Provider Mendy vailable Allergies No known active allergies Encounters Date Type Department Care Team Description 08/02/2024 12:35 AM EDT - 08/02/2024 7:08 AM EDT Emergency [facility] Emergency [address] [place] [address] Discharge Disposition: Home or Self [...] patient's age to complete this topic Insurance [facility] Member Subscriber Plan / Payer (Ef fective 2024-Present) Name:Samaria Corley Member ID:[id number] Relation to Subscriber:Self Name:Samaria Corley Subscriber ID:[id number] Payer ID:[id number] Group ID:Not on file Type:Not on file Address: [address] [address] Care Teams Tabulating Clerk Relationship Specialty Start Date End Date Physician, Pcp Unknown PCP - General 08/02/24
--- OUTSIDE RECORDS SUMMARY | 2024-08-28 09:34 | XMS_ITS | Clinical Summary ---
Author Organization [facility] Address [address] [place] [address] Care Team Providers Care Fire Marshal Name Role Phone Roxie Guevara MD Primary Care Provider [phone] Allergies Active Allergy Reactions Criticality Noted Date [...] Never Assessed Tobacco Cessation:Counseling Given: Not Answered [facility] Utilities Answer Date Recorded In the past 12 months has [employer], [employer], or water [employer] threatened to shut off services in your [...] in a intermediate (including now)? No 01/13/2024 Comments Unknown Sex [...] topic Insurance MEDICARE PART A & B [facility] [facility] [place]WORK [facility] Advance Directives * Full Code (Latest Code Status on File) Date Activated Date Inactivated Comments 01/11/2024 12:44 PM Care Teams Fire Marshal Relationship Specialty Start Date End Date Roxie Guevara MD [address] [place] [address] PCP - General Family Medicine 01/13/24
[2024-08-28 09:45] LABS: MANUAL DIFF FLAG NO
[2024-08-28 09:49] LABS: Basophils Absolute Auto 0.1 X10*3/uL (0.0-0.2); Basophils Percent Auto 0.5 % (0-2); Eosinophils Absolute Auto 0.1 X10*3/uL (0.0-0.4); Eosinophils Percent Auto 1.3 % (0-4); Hematocrit 33.5 % (37.0-47.0); Hemoglobin 11.2 g/dl (12.0-16.0); Imm Gran Abs Auto 0.07 X10*3/uL (0.00-0.03); Imm Gran Pct Auto 0.7 % (0.0-0.4); Lymphocytes Absolute Auto 2.8 X10*3/uL (1.2-4.9); Lymphocytes Percent Auto 27.2 % (20-40); Mean Corpuscular HGB Conc 33.4 g/dl (31.0-35.0); Mean Corpuscular Hemoglobin 29.8 pg (27.0-33.0); Mean Corpuscular Volume 89.1 fL (80.0-98.0); Mean Platelet Volume 9.1 fL (9.4-12.3); Monocytes Absolute Auto 0.5 X10*3/uL (0.1-1.2); Monocytes Percent Auto 4.7 % (2-11); Neutrophils Absolute Auto 6.7 x10*3/uL (2.0-8.3); Neutrophils Percent Auto 65.6 % (45-73); Platelet Count 394 X10*3/uL (160-400); Red Blood Count 3.76 X10*6/uL (4.20-5.50); Red Cell Distribution Width 12.6 % (11.0-16.0); White Blood Count 10.2 X10*3/uL (4.8-10.8)
[2024-08-28 10:07] LABS: Ethanol < 10 mg/dL
[2024-08-28 10:13] LABS: Alanine Aminotransferase 19 U/L (0-31); Albumin Level 3.8 g/dL (3.5-5.0); Alkaline Phosphatase 80 U/L (39-117); Anion Gap 8 (12-20); Aspartate Amino Transferase 18 U/L (5-31); Bilirubin Total 0.3 mg/dL (0.0-1.0); Blood Urea Nitrogen 9 mg/dL (9-16); Calcium 9.1 mg/dL (8.4-10.2); Carbon Dioxide 27 mmol/L (22-29); Chloride 110 mmol/L (96-108); Creatinine Clr Calc Pharmacy 110.9; Estimated Glomerular Filt Rate > 60; Glucose Random 105 mg/dL (60-115); Potassium 3.2 mmol/L (3.3-5.1); Sodium 142 mmol/L (135-145); Total Protein 6.4 g/dL (6.5-8.0)
[2024-08-28 10:22] LABS: HCG Quantitative < 2 mIU/mL
[2024-08-28 10:28] LABS: Influenza A PCR NEGATIVE (Negative); Influenza B PCR NEGATIVE (Negative); Resp Syncy Virus RNA Qual PCR NEGATIVE (Negative); SARS COV2 PCR INHOUSE NEGATIVE (Negative)
--- NOTE | 2024-08-28 10:35 | MHC.EDTECH ---
Patient provided with urine cup at bedside. Patient aware to provide sample as soon as possible.
[2024-08-28] MEDS: Potassium Chloride Packet 20 MEQ PACKET 40 MEQ PO (11:54)
[2024-08-28 13:36] LABS: Appearance Urine Clear; Color Urine Yellow; Glucose Urine UA Negative (Negative); Leukocyte Esterase Urine Trace (Negative); Nitrite Urine Negative (Negative); PH 6.5 (5.0-9.0); Specific Gravity - Urine 1.015 (1.005-1.025); UMIC TRIGGER UACC YES; Urine Blood Moderate (2+) (Negative); Urine Ketones Trace mg/dL (Negative); Urine Protein Negative (Neg-Trace)
[2024-08-28 13:41] LABS: Bacteria Urine None Seen (None Seen); Hyaline Casts Urine 0-2 /LPF (0-2); WBC Urine 0-5 /HPF (0-5)
[2024-08-28 13:43] LABS: Amphetamine Screen Urine Not Detected (Not Detect); Barbiturates, Urine Not Detected (Not Detect); Benzodiazepines Screen Urine Not Detected (Not Detect); Buprenorphine Scr Not Detected (Not Detect); Cannabinoid Screen Urine POSITIVE (Not Detect); Cocaine Screen Urine Not Detected (Not Detect); Fentanyl, urine Not Detected (Not Detect); Methadone Screen, Urine Not Detected (Not Detect); Opiate Screen Urine Not Detected (Not Detect); Oxycodone Screen Urine Not Detected (Not Detect); Phencyclidine Screen Urine Not Detected (Not Detect)
--- NOTE | 2024-08-28 14:15 | PC.NURSE ---
Pt remains resting quietly in room; cooperative with care at this time
[2024-08-28 16:07] VITALS: BP 140/75; PULSE 85; RESP 13; TEMP 37.1; O2SAT 96
[2024-08-28] MEDS: Ziprasidone 60 MG CAPSULE PO (22:55)
--- NOTE | 2024-08-29 07:20 | PHA.MEDREC ---
Pharmacy Consult ? Medication Reconciliation Pharmacy has reviewed the medication reconciliation done by RN. [facility] list matches patients discharge packet from earlier this month.
[2024-08-29 08:40] VITALS: BP 140/77; PULSE 81; RESP 18; TEMP 37.4; O2SAT 94
[2024-08-29] MEDS: busPIRone HCl 10 MG TABLET PO (08:51)
[2024-08-29] MEDS: Ziprasidone 60 MG CAPSULE PO (08:51)
[2024-08-29] MEDS: Fluticasone Propionate Nasal 16 GM SPRAY 1 SPRAY NOSTRIL-B (08:52)
[2024-08-29] MEDS: Fluticasone/Vilanterol 100/25 BLST.W.DEV 1 PUFF INHALE (08:52)
[2024-08-29 13:02] VITALS: BP 146/86; PULSE 98; RESP 20; TEMP 37.2; O2SAT 98
--- NOTE | 2024-08-29 13:25 | MHC.CARE ---
Pt was provided with a Lyft to the [facility] to discuss out patient services and other programs
== END 2024-08-29 13:03 | disposition home or self-care (01) ==
PROVIDERS: Registered Nurse Emergency; Emergency Provider Emergency Medicine
DX: F25.9 Schizoaffective disorder, unspecified (principal); F43.10 Post-traumatic stress disorder, unspecified; F41.9 Anxiety disorder, unspecified; R45.850 Homicidal ideations; R10.2 Pelvic and perineal pain; Z03.818 Encounter for observation for suspected exposure to other biological agents ruled out; Z79.899 Other long term (current) drug therapy; Z51.81 Encounter for therapeutic drug level monitoring
CPT/HCPCS: 0241U; 36415; 80053; 80307; 81001; 84702; 85025; 99284; S9485

== ENCOUNTER 2024-09-15 11:07 | Emergency (ER) | payer OTHER, SELFPAY ==
--- NOTE | ~2024-09-15 | XR_ITS ---
EXAMINATION: XR LUMBOSACRAL SPINE CLINICAL INFORMATION: lower back pain, bilat leg pain COMPARISON: None available. TECHNIQUE: Three views of the lumbosacral spine. FINDINGS: There is normal lumbar lordosis. The vertebral heights and alignment is normal. There is minimal levoscoliosis. There is mild ventral and lateral spurring at the L4-5 disc level. No visible acute fracture, dislocation seen. There is mild sclerosis right SI joint. The left SI joint is normal. The prevertebral and paravertebral soft tissues are normal. Incidental finding of an IUD in the pelvis is noted XR/XR lumbar spine 2-3V IMPRESSION: Mild sclerosis right SI joint suggests dose sacroiliitis. Mild ventral and lateral spondylosis L4-5 disc level. Electronically signed by: Scott Collins MD 09/15/2024 11:54 AM EDT
[2024-09-15 11:14] VITALS: BP 140/86; PULSE 70; O2SAT 94
--- NOTE | 2024-09-15 11:14 | ED_ITS ---
HPI - General Adult General Chief complaint: General Medical Stated complaint: BLE PAIN,H/O ARTHRITIS PER EMS Related Data Previous Rx's ?Medication ?Instructions ?Recorded fluticasone propionate 50 1 spray intranasal DAILY 30 days 04/27/24 mcg/actuation nasal #16 grams spray,suspension (Flonase Allergy Relief) meclizine 25 mg tablet 25 mg PO DAILY PRN for motion 04/27/24 sickness #90 tabs umeclidinium 62.5 mcg/actuation 1 inh inhalation BEDTIME 30 days 04/27/24 blister powder for inhalation #30 ea cetirizine 10 mg tablet (All Day 10 mg PO DAILY PRN allergy 06/02/24 Allergy (cetirizine)) symptoms 90 days #90 tabs cyclobenzaprine 10 mg tablet 10 mg PO TID PRN muscle spasm 30 06/02/24 days #90 tabs albuterol sulfate 90 mcg/actuation 2 puff PO Q4H PRN bronchospasm 30 08/18/24 aerosol inhaler (Ventolin HFA) days #8.5 grams atorvastatin 10 mg tablet 10 mg PO BEDTIME 30 days #30 tabs 08/18/24 buspirone 10 mg tablet 10 mg PO DAILY 30 days #30 tabs 08/18/24 fluticasone propionate 115 2 puff inhalation BID 30 days #12 08/18/24 mcg-salmeterol 21 mcg/actuation grams HFA inhaler (Advair HFA) ziprasidone HCl 60 mg capsule 60 mg PO BIDWM 30 days #60 caps 08/18/24 montelukast 10 mg tablet 10 mg PO DAILY 30 days #30 tabs 09/14/24 Allergies Allergy/AdvReac Type Severity Reaction Status Date / Time animal dander [PET DANDER] Allergy Unknown Itching Verified 09/15/24 11:16 bee pollen [BEE STINGS] Allergy Unknown Swelling Verified 09/15/24 11:16 house dust Allergy Unknown Unknown Verified 09/15/24 11:16 shellfish derived Allergy Unknown Swelling Verified 09/15/24 11:16 [SHELLFISH DERIVED] Seasonal Allergies Allergy Itching Verified 09/15/24 11:16 [facility] Past Medical History Medical History Suicidal ideation Bipolar disorder Severe asthma with allergic rhinitis Allergic rhinitis Vertigo Surgical History No pertinent past surgical history Family History Family History Father Lung cancer CVD (cardiovascular disease) Mother Past heart attack Diabetes Emphysema lung CVD (cardiovascular disease) Family/Other FH: mental illness Maternal Grandmother No problems noted. Paternal Grandmother No problems noted. Social History Social History Household Members: Significant Other Housing: Apartment Do you presently have visiting nurse or other home services: No Unable to assess alcohol history related to: Refusing to respond Alcohol intake: current Alcohol intake frequency: 3 or more drinks per day Alcohol type: beer and hard liquor Comment: close observations at night Patient Tobacco Use Status: Refuse Tobacco use screen Tobacco use type: Cigarette Cigarette Packs Per Day: 1.5 Cigarettes Per Day: 30.0 Years Smoked: 19 e-Cigarette/Vaping Use: Never Used Second Hand Smoke Exposure: No Substance Use Type: Crack/Cocaine, Heroin and Marijuana service: No Current occupational status: unemployed Sexual orientation: Straight/Heterosexual Cognitive needs: No Hearing needs: No Vision needs: No Course Course Course Narrative: This is a rapid medical exam performed by Heriberto Hector NP: Additional HPI, ROS, PE not included below will be deferred to primary provider. Patient is a 39-year-old female with history of Bipolar disorder, schizoaffective d/o, nicotine dependence, HLD, depression, PTSD, asthma presenting with complaint of lower back and bilateral leg pain. Found sleeping at [place] by a bystander who called 911. Patient is currently experiencing homelessness. Plan: lumbar xray, UA Discharge Plan Discharge Prescriptions: No Action cetirizine [All Day Allergy (cetirizine)] 10 mg tablet 10 mg PO DAILY PRN (Reason: allergy symptoms) 90 Days Qty: 90 1RF cyclobenzaprine 10 mg tablet 10 mg PO TID PRN (Reason: muscle spasm) 30 Days Qty: 90 3RF montelukast 10 mg tablet 10 mg PO DAILY 30 Days Qty: 30 0RF ziprasidone HCl 60 mg Capsule 60 mg PO BIDWM 30 Days Qty: 60 0RF buspirone 10 mg Tablet 10 mg PO DAILY 30 Days Qty: 30 0RF atorvastatin 10 mg tablet 10 mg PO BEDTIME 30 Days Qty: 30 0RF albuterol sulfate [Ventolin HFA] 90 mcg/actuation HFA aerosol inhaler 2 puff PO Q4H PRN (Reason: bronchospasm) 30 Days Qty: 8.5 0RF fluticasone propion-salmeterol [Advair HFA] 115-21 mcg/actuation HFA aerosol inhaler 2 puff inhalation BID 30 Days Qty: 12 0RF meclizine 25 mg tablet 25 mg PO DAILY PRN (Reason: for motion sickness) Qty: 90 2RF fluticasone propionate [Flonase Allergy Relief] 50 mcg/actuation spray,suspension 1 spray intranasal DAILY 30 Days Qty: 16 5RF Rx Instructions: administer into each nostril umeclidinium 62.5 mcg/actuation blister with device 1 inh INHALATION BEDTIME 30 Days Qty: 30 6RF Print Language: Occitan
[2024-09-15 11:15] VITALS: BP 144/96; PULSE 82; RESP 16; TEMP 36.8; O2SAT 93; BMI 38.9
--- OUTSIDE RECORDS SUMMARY | 2024-09-15 14:30 | XMS_ITS | Clinical Summary ---
Author Organization [facility] Address [address] [place] [address] Phone Care Team Providers Care Manager Valuation Name Role Phone Physician, Pcp Unknown Primary Care Provider Mendy vailable Allergies No known active allergies Encounters Date Type Department Care Team Description 08/02/2024 12:35 AM EDT - 08/02/2024 7:08 AM EDT Emergency [facility] Emergency [address] [place] [address] Discharge Disposition: Home or Self [...] patient's age to complete this topic Insurance [facility] Member Subscriber Plan / Payer (Ef fective 2024-Present) Name:Samaria Corley Member ID:[id number] Relation to Subscriber:Self Name:Samaria Corley Subscriber ID:[id number] Payer ID:[id number] Group ID:Not on file Type:Not on file Address: [facility] [address] [phone] Care Teams Manager Valuation Relationship Specialty Start Date End Date Physician, Pcp Unknown PCP - General 08/02/24
--- OUTSIDE RECORDS SUMMARY | 2024-09-15 14:30 | XMS_ITS | Clinical Summary ---
Author Organization [facility] Address [address] [place] [address] Care Team Providers Care Compugraph Operator Name Role Phone Roxie Guevara MD Primary Care Provider [phone] Allergies Active Allergy Reactions Criticality Noted Date [...] Never Assessed Tobacco Cessation:Counseling Given: Not Answered [facility] Utilities Answer Date Recorded In the past 12 months has [employer], [employer], or water [employer] threatened to shut off services in your [...] Pap Smear (Ages 21-65) 07/07/2004 Mammogram 2023 COVID-19 Vaccine (1 - 2023-2 5 season) 2024 Influenza Vaccine 12/03/2024 HPV Vaccines Aged Out No longer eligi ble based on patient's age to complete this topic Pneumococcal Vaccine: Pediat elton (0-5 Years) and At-Risk Patients (6 to 49 Years) Aged Out No longer eligible b ased on patient's age to complete this topic Insurance MEDICARE PART A & B [facility] [place] [facility] [place]WORK [facility] Advance Directives * Full Code (Latest Code Status on File) Date Activated Date Inactivated Comments 01/11/2024 12:44 PM Care Teams Compugraph Operator Relationship Specialty Start Date End Date Roxie Guevara MD [address] [place] [address] PCP - General Family Medicine 01/13/24
--- NOTE | 2024-09-15 15:01 | ED_ITS ---
HPI - General Adult General Chief complaint: General Medical Stated complaint: BLE PAIN,H/O ARTHRITIS PER EMS Time Seen by Provider: 09/15/24 11:52 Source: patient Mode of arrival: EMS History of Present Illness HPI narrative: This is a 39 years old female patient presented to the emergency department complaining of lower back pain. The patient actually was outside a convenience store sleeping and she was brought in by ambulance. She tells me she is tired the she has not slept for a while denies any fever chills vomiting any systemic symptoms or lower lip complaint is lower back pain. Onset (ago): day(s) (1) Radiation: back Severity: mild Pain Consistency: constant Exacerbating factors: none Associated symptoms: denies other symptoms Related Data Previous Rx's ?Medication ?Instructions ?Recorded fluticasone propionate 50 1 spray intranasal DAILY 30 days 04/27/24 mcg/actuation nasal #16 grams spray,suspension (Flonase Allergy Relief) meclizine 25 mg tablet 25 mg PO DAILY PRN for motion 04/27/24 sickness #90 tabs umeclidinium 62.5 mcg/actuation 1 inh inhalation BEDTIME 30 days 04/27/24 blister powder for inhalation #30 ea cetirizine 10 mg tablet (All Day 10 mg PO DAILY PRN allergy 06/02/24 Allergy (cetirizine)) symptoms 90 days #90 tabs cyclobenzaprine 10 mg tablet 10 mg PO TID PRN muscle spasm 30 06/02/24 days #90 tabs albuterol sulfate 90 mcg/actuation 2 puff PO Q4H PRN bronchospasm 30 08/18/24 aerosol inhaler (Ventolin HFA) days #8.5 grams atorvastatin 10 mg tablet 10 mg PO BEDTIME 30 days #30 tabs 08/18/24 buspirone 10 mg tablet 10 mg PO DAILY 30 days #30 tabs 08/18/24 fluticasone propionate 115 2 puff inhalation BID 30 days #12 08/18/24 mcg-salmeterol 21 mcg/actuation grams HFA inhaler (Advair HFA) ziprasidone HCl 60 mg capsule 60 mg PO BIDWM 30 days #60 caps 08/18/24 montelukast 10 mg tablet 10 mg PO DAILY 30 days #30 tabs 09/14/24 cephalexin 500 mg capsule 500 mg PO Q8H 7 days #21 caps 09/15/24 Allergies Allergy/AdvReac Type Severity Reaction Status Date / Time animal dander [PET DANDER] Allergy Unknown Itching Verified 09/15/24 11:16 bee pollen [BEE STINGS] Allergy Unknown Swelling Verified 09/15/24 11:16 house dust Allergy Unknown Unknown Verified 09/15/24 11:16 shellfish derived Allergy Unknown Swelling Verified 09/15/24 11:16 [SHELLFISH DERIVED] Seasonal Allergies Allergy Itching Verified 09/15/24 11:16 Review of Systems Constitutional: Constitutional: Reports no additional constitutional complaints Cardiovascular: Cardiovascular: Reports no additional cardiovascular complaints Genitourinary: Genitourinary: Reports as per [facility] Past Medical History Attestation statement: The following information was validated with the patient. Medical History Suicidal ideation Bipolar disorder Severe asthma with allergic rhinitis Allergic rhinitis Vertigo Surgical History No pertinent past surgical history Family History Family History Father Lung cancer CVD (cardiovascular disease) Mother Past heart attack Diabetes Emphysema lung CVD (cardiovascular disease) Family/Other FH: mental illness Maternal Grandmother No problems noted. Paternal Grandmother No problems noted. Social History Social History Household Members: Significant Other Housing: Apartment Do you presently have visiting nurse or other home services: No Unable to assess alcohol history related to: Refusing to respond Alcohol intake: current Alcohol intake frequency: 3 or more drinks per day Alcohol type: beer and hard liquor Comment: close observations at night Patient Tobacco Use Status: Refuse Tobacco use screen Tobacco use type: Cigarette Cigarette Packs Per Day: 1.5 Cigarettes Per Day: 30.0 Years Smoked: 19 e-Cigarette/Vaping Use: Never Used Second Hand Smoke Exposure: No Substance Use Type: Crack/Cocaine, Heroin and Marijuana Advance Directives: No Advance Directives Information Provided: Yes service: No Current occupational status: unemployed Sexual orientation: Straight/Heterosexual Cognitive needs: No Hearing needs: No Vision needs: No Physical Exam ED Vital Signs: Vital Signs - 24 hr 09/15/24 11:15 Temperature 98.2 F Pulse Rate 82 Respiratory Rate 16 Blood Pressure 144/96 H Pulse Oximetry 93 Oxygen Delivery Method Room Air BMI result Body Mass Index 38.9 No acute distress able to ambulate without any problem Const General: cooperative Nutritional Appearance: well nourished Orientation/consciousness: patient oriented x3 Limitations: no limitations HENMT Head: Yes normal to inspection General nose exam: Normal external nose present Face and sinus: Yes normal facial exam Mouth: Normal oral and palatal mucosa present Neck Neck: Yes normal visual inspection and Yes full ROM Chest Chest palpation & inspection: normal inspection of the chest Resp Effort & Inspection: normal respiratory effort Cardio Jugular venous distension: no JVD Rate: regular rate Rhythm: regular rhythm GI Inspection: Yes normal to inspection Palpation (GI): Soft to palpation and not firm Auscultation: normal bowel sounds General: Yes no CVA tenderness Back/Spine/Pelvis Back: no CVA tenderness Skin General skin exam: no rashes or lesions noted and elasticity normal Lesions: no lesions Rashes: no rashes Trauma: no lacerations or abrasions Neuro General: patient oriented x3 Course Reevaluation(s) Reevaluation #1: stable able to ambulate UA possible UTI OK to d/c on AB pending culture urine and tylenol as needed Time: 16:26 Medications Administered Discontinued Medications Generic Name Dose Route Start Last Admin Trade Name Freq PRN Reason Stop Dose Admin Acetaminophen 975 mg 09/15/24 15:00 09/15/24 15:15 Acetaminophen 325 Mg Tablet PO 09/15/24 15:01 975 mg ONCE ONE Administration Medical Decision Making Medical Decision Making [facility] Narrative: Patient is here complaining of lower back pain sleepy we will check a UA she is able to ambulate we will do a x-ray of the LS spine Differential Diagnosis Differential Diagnoses: The differential diagnosis associated with the presentation includes Urinary tract infection/pyelonephritis/lumbar strain Admission/Observation Consideration of admission/observation: Escalation of care including admission/observation considered Lab Data [facility] Lab Attestation statement: I reviewed the patient's lab results. Labs: Lab Results 09/15/24 Range/Units 15:15 Urine Color Yellow Urine Appearance Cloudy Urine pH 7.0 (5.0-9.0) Ur Specific [place] 1.010 (1.005-1.025) Urine Protein Trace (Neg-Trace) mg/dL Urine Glucose (UA) Negative (Negative) mg/dL Urine Ketones Negative (Negative) mg/dL Urine Blood Large (3+) H (Negative) Urine Nitrite Negative (Negative) Ur Leukocyte Esterase Moderate (2+) H (Negative) Urine RBC >20 H (0-2) /HPF Urine WBC 21-50 H (0-5) /HPF Ur Squamous Epith Cells 6-10 (0-2) /HPF Urine Bacteria 3+ (None Seen) Hyaline Casts 0-2 (0-2) /LPF Urine Test NEGATIVE (NEGATIVE) Urine Opiates Screen Not Detected (Not Detect) Ur Buprenorphine Scrn Not Detected (Not Detect) ng/mL Ur Oxycodone Screen Not Detected (Not Detect) ng/mL Urine Methadone Screen Not Detected (Not Detect) ng/mL Urine Fentanyl Screen Not Detected (Not Detect) Ur Barbiturates Screen Not Detected (Not Detect) Ur Phencyclidine Scrn Not Detected (Not Detect) Ur Amphetamines Screen Not Detected (Not Detect) U Benzodiazepines Scrn Not Detected (Not Detect) Urine Cocaine Screen Not Detected (Not Detect) U Marijuana (THC) Screen Not Detected (Not Detect) Independent Interpretation I performed an independent interpretation of an: Plain X-Ray Interpretation: LORID Radiology Impression Discussion of test interpretation with radiology: I have reviewed the radiologist's reading. Radiologist Impression: DJD Prescription Management I considered prescription management with: Antibiotic Discharge Plan Discharge Clinical Impression: Back pain Qualifiers: Back pain location: low back pain Chronicity: acute Back pain laterality: midl ine Sciatica presence: without sciatica Qualified Code(s): M54.50 - Low back pain, unspecified UTI (urinary tract infection) Qualifiers: Urinary tract infection type: site unspecified Hematuria presence: without hematuria Qualified Code(s): N39.0 - Urinary tract infection, site not specified Patient Disposition: Home, Self-Care Instructions: Acute Low Back Pain (ED), Acute Urinary Retention in Women (ED) Prescriptions: New cephalexin 500 mg capsule 500 mg PO Q8H 7 Days Qty: 21 0RF No Action cetirizine [All Day Allergy (cetirizine)] 10 mg tablet 10 mg PO DAILY PRN (Reason: allergy symptoms) 90 Days Qty: 90 1RF cyclobenzaprine 10 mg tablet 10 mg PO TID PRN (Reason: muscle spasm) 30 Days Qty: 90 3RF montelukast 10 mg tablet 10 mg PO DAILY 30 Days Qty: 30 0RF ziprasidone HCl 60 mg Capsule 60 mg PO BIDWM 30 Days Qty: 60 0RF buspirone 10 mg Tablet 10 mg PO DAILY 30 Days Qty: 30 0RF atorvastatin 10 mg tablet 10 mg PO BEDTIME 30 Days Qty: 30 0RF albuterol sulfate [Ventolin HFA] 90 mcg/actuation HFA aerosol inhaler 2 puff PO Q4H PRN (Reason: bronchospasm) 30 Days Qty: 8.5 0RF fluticasone propion-salmeterol [Advair HFA] 115-21 mcg/actuation HFA aerosol inhaler 2 puff inhalation BID 30 Days Qty: 12 0RF meclizine 25 mg tablet 25 mg PO DAILY PRN (Reason: for motion sickness) Qty: 90 2RF fluticasone propionate [Flonase Allergy Relief] 50 mcg/actuation spray,suspension 1 spray intranasal DAILY 30 Days Qty: 16 5RF Rx Instructions: administer into each nostril umeclidinium 62.5 mcg/actuation blister with device 1 inh INHALATION BEDTIME 30 Days Qty: 30 6RF Print Language: Kazakh
[2024-09-15] MEDS: Acetaminophen 325 MG TABLET 975 MG PO (15:15)
[2024-09-15 15:29] LABS: Appearance Urine Cloudy; Color Urine Yellow; Glucose Urine UA Negative (Negative); Leukocyte Esterase Urine Moderate (2+) (Negative); Nitrite Urine Negative (Negative); UMIC TRIGGER UACC YES; Urine Blood Large (3+) (Negative); Urine Ketones Negative (Negative); Urine Protein Trace mg/dL (Neg-Trace)
[2024-09-15 15:31] LABS: UPreg QC Valid YES; Urine Pregnancy NEGATIVE (NEGATIVE)
[2024-09-15 15:34] LABS: Bacteria Urine 3+ (None Seen); Hyaline Casts Urine 0-2 /LPF (0-2); RBC Urine >20 /HPF (0-2); UACC Culture Trigger YES; WBC Urine 21-50 /HPF (0-5)
[2024-09-15 15:38] LABS: Amphetamine Screen Urine Not Detected (Not Detect); Barbiturates, Urine Not Detected (Not Detect); Benzodiazepines Screen Urine Not Detected (Not Detect); Buprenorphine Scr Not Detected (Not Detect); Cannabinoid Screen Urine Not Detected (Not Detect); Cocaine Screen Urine Not Detected (Not Detect); Fentanyl, urine Not Detected (Not Detect); Methadone Screen, Urine Not Detected (Not Detect); Opiate Screen Urine Not Detected (Not Detect); Oxycodone Screen Urine Not Detected (Not Detect); Phencyclidine Screen Urine Not Detected (Not Detect)
[2024-09-15 16:46] VITALS: BP 144/96; PULSE 82; RESP 16; TEMP 36.8; O2SAT 93
== END 2024-09-15 16:46 | disposition home or self-care (01) ==
PROVIDERS: Registered Nurse Emergency; Emergency Provider Emergency Medicine
DX: N39.0 Urinary tract infection, site not specified (principal); M54.50 Low back pain, unspecified; Z51.81 Encounter for therapeutic drug level monitoring; Z79.899 Other long term (current) drug therapy
CPT/HCPCS: 72100; 80307; 81001; 81025; 87086; 99283

== ENCOUNTER → 2024-09-15 11:19 | Outpatient (BNV) | payer OTHER, SELFPAY | PROVIDERS: Emergency Provider Emergency Medicine; Visit Provider Radiology Diagnostic Radiology | DX: M46.1 Sacroiliitis, not elsewhere classified (principal) | CPT/HCPCS: 72100 ==

== ENCOUNTER 2024-09-22 03:45 | Emergency (ER) | payer OTHER, SELFPAY ==
[2024-09-22 03:58] VITALS: BP 128/71; BP 190/110; PULSE 74; PULSE 80; RESP 16; TEMP 36.7; O2SAT 97; O2SAT 98; BMI 41.6
--- OUTSIDE RECORDS SUMMARY | 2024-09-22 03:59 | XMS_ITS | Clinical Summary ---
Author Organization [facility] Address [address] [place] [address] Care Team Providers Care Electrician Locomotive Name Role Phone Roxie Guevara MD Primary Care Provider [phone] Allergies Active Allergy Reactions Criticality Noted Date [...] Never Assessed Tobacco Cessation:Counseling Given: Not Answered [facility] Utilities Answer Date Recorded In the past 12 months has [employer], [employer], or water [employer] threatened to shut off services in your [...] place to sleep or slept in a jail (including now)? No 01/13/2024 Comments Unknown Sex [...] topic Insurance MEDICARE PART A & B [facility] MEDICARE OUT OF NETWORK [facility] Advance Directives * Full Code (Latest Code Status on File) Date Activated Date Inactivated Comments 01/11/2024 12:44 PM Care Teams Electrician Locomotive Relationship Specialty Start Date End Date Roxie Guevara MD [address] [place] [address] PCP - General Family Medicine 01/13/24
--- OUTSIDE RECORDS SUMMARY | 2024-09-22 03:59 | XMS_ITS | Clinical Summary ---
Author Organization [facility] Address [address] [place] [address] Phone Care Team Providers Care Swiss Type Screw Machine Operator Name Role Phone Physician, Pcp Unknown Primary Care Provider Mendy vailable Allergies No known active allergies Encounters Date Type Department Care Team Description 08/02/2024 12:35 AM EDT - 08/02/2024 7:08 AM EDT Emergency [facility] Emergency [address] [place] [address] Discharge Disposition: Home or Self [...] this topic Insurance [facility] Member Subscriber Plan / Payer (Ef fective 2024-Present) Name:Samaria Corley Member ID:[id number] Relation to Subscriber:Self Name:Samaria Corley Subscriber ID:[id number] Payer ID:[id number] Group ID:Not on file Type:Not on file Address: [facility] [address] [address] Care Teams Swiss Type Screw Machine Operator Relationship Specialty Start Date End Date Physician, Pcp Unknown PCP - General 08/02/24
--- NOTE | 2024-09-22 04:22 | ED.FEMALEGU ---
HPI - Female Genitourinary General Chief complaint: Urogenital-Female Stated complaint: UTI symptoms Time Seen by Provider: 09/22/24 04:22 History of Present Illness ED Provider: Carol MCCAIN Narrative: The patient is a 39-year-old female with a history of schizoaffective disorder, PTSD, and homelessness. She has a history of frequent visits to the emergency room. She apparently was brought to the hospital tonight by ambulance complaining of dysuria that she says she has had for several days. No fever, sweats, chills. No nausea or vomiting. Related Data Previous Rx's ?Medication ?Instructions ?Recorded fluticasone propionate 50 1 spray intranasal DAILY 30 days 04/27/24 mcg/actuation nasal #16 grams spray,suspension (Flonase Allergy Relief) meclizine 25 mg tablet 25 mg PO DAILY PRN for motion 04/27/24 sickness #90 tabs umeclidinium 62.5 mcg/actuation 1 inh inhalation BEDTIME 30 days 04/27/24 blister powder for inhalation #30 ea cetirizine 10 mg tablet (All Day 10 mg PO DAILY PRN allergy 06/02/24 Allergy (cetirizine)) symptoms 90 days #90 tabs cyclobenzaprine 10 mg tablet 10 mg PO TID PRN muscle spasm 30 06/02/24 days #90 tabs albuterol sulfate 90 mcg/actuation 2 puff PO Q4H PRN bronchospasm 30 08/18/24 aerosol inhaler (Ventolin HFA) days #8.5 grams atorvastatin 10 mg tablet 10 mg PO BEDTIME 30 days #30 tabs 08/18/24 buspirone 10 mg tablet 10 mg PO DAILY 30 days #30 tabs 08/18/24 fluticasone propionate 115 2 puff inhalation BID 30 days #12 08/18/24 mcg-salmeterol 21 mcg/actuation grams HFA inhaler (Advair HFA) ziprasidone HCl 60 mg capsule 60 mg PO BIDWM 30 days #60 caps 08/18/24 montelukast 10 mg tablet 10 mg PO DAILY 30 days #30 tabs 09/14/24 cephalexin 500 mg capsule 500 mg PO Q8H 7 days #21 caps 09/15/24 Allergies Allergy/AdvReac Type Severity Reaction Status Date / Time animal dander [PET DANDER] Allergy Unknown Itching Verified 09/22/24 04:00 bee pollen [BEE STINGS] Allergy Unknown Swelling Verified 09/22/24 04:00 house dust Allergy Unknown Unknown Verified 09/22/24 04:00 shellfish derived Allergy Unknown Swelling Verified 09/22/24 04:00 [SHELLFISH DERIVED] Seasonal Allergies Allergy Itching Verified 09/22/24 04:00 Review of Systems Review of Systems: Yes all other systems are reviewed and are negative PMFSH Past Medical History Medical History Suicidal ideation Bipolar disorder Severe asthma with allergic rhinitis Allergic rhinitis Vertigo Surgical History No pertinent past surgical history Family History Family History Father Lung cancer CVD (cardiovascular disease) Mother Past heart attack Diabetes Emphysema lung CVD (cardiovascular disease) Family/Other FH: mental illness Maternal Grandmother No problems noted. Paternal Grandmother No problems noted. Social History Social History Household Members: Significant Other Housing: Apartment Do you presently have visiting nurse or other home services: No Unable to assess alcohol history related to: Refusing to respond Alcohol intake: current Alcohol intake frequency: 3 or more drinks per day Alcohol type: beer and hard liquor Comment: close observations at night Patient Tobacco Use Status: Refuse Tobacco use screen Tobacco use type: Cigarette Cigarette Packs Per Day: 1.5 Cigarettes Per Day: 30.0 Years Smoked: 19 Smoked in Last 30 Days: Yes e-Cigarette/Vaping Use: Never Used Second Hand Smoke Exposure: No Use of substances other than those prescribed or required for medical reasons: No Substance Use Type: Crack/Cocaine, Heroin and Marijuana Advance Directives: No Do you have a plan to hurt others: No Plan Patient : No service: No Current occupational status: unemployed Sexual orientation: Straight/Heterosexual Cognitive needs: No Hearing needs: No Vision needs: No Physical Exam Vital Signs: Vital Signs: Last Vital Signs Temp 98.4 F 09/22/24 07:55 Pulse 95 09/22/24 07:55 Resp 16 09/22/24 07:55 BP 139/81 09/22/24 07:55 Pulse Ox 94 09/22/24 07:55 O2 Del Method Room Air 09/22/24 07:55 BMI result Body Mass Index 41.6 Const: Other: The patient was sleeping with a blanket pulled over her head when I entered the room. She was awoken fairly easily. She seemed sleepy but not otherwise ill. HEENT: Other: The face is symmetrical. Mucous membranes moist. Eyes: General: appearance normal, both eyes and all related structures Neck: Neck: Yes normal visual inspection Resp: Effort & Inspection: normal respiratory effort Auscultation: clear to auscultation bilaterally Cardio: Rate: regular rate Rhythm: regular rhythm Heart sounds: S1 normal heart sound present and S2 normal heart sound present GI: Other: The abdomen is soft and nontender Skin: Other: Skin is dry and unremarkable Neuro: Other: The patient seemed tired but otherwise had a normal mental status. Cranial nerves are grossly intact. She moves her extremities normally and appropriately Extrem: Other: No peripheral edema Medical Decision Making Medical Decision Making MDM Narrative: The patient is a 39-year-old woman with chronic mental illness and homelessness. She presents tonight saying that she has urinary symptoms and she thinks she has a UTI. She was recently here and prescribed a course of antibiotics. Her urine culture however did not grow anything significant. Her urinalysis today does not suggest infection. I think that she is here primarily for custodial. She when straight to sleep as soon as she was placed in a room. She was reassured that she does not have urinary tract infection. She will be discharged. She should follow up with her PCP. Lab Data Labs: Lab Results 09/22/24 Range/Units 08:06 Urine Color Yellow Urine Appearance Clear Urine pH 7.5 (5.0-9.0) Ur Specific [place] 1.025 (1.005-1.025) Urine Protein Trace (Neg-Trace) mg/dL Urine Glucose (UA) Negative (Negative) mg/dL Urine Ketones Trace (Negative) mg/dL Urine Blood Negative (Negative) Urine Nitrite Negative (Negative) Ur Leukocyte Esterase Trace H (Negative) Urine RBC 0-2 (0-2) /HPF Urine WBC 0-5 (0-5) /HPF Ur Squamous Epith Cells 0-2 (0-2) /HPF Urine Bacteria Trace (None Seen) Hyaline Casts 0-2 (0-2) /LPF Discharge Plan Discharge Clinical Impression: Dysuria, Low back pain Patient Disposition: Home, Self-Care Additional Instructions: Your urine test today looks good. There was no sign of infection. Please follow up with your regular doctor. Return to the emergency room if worse. Prescriptions: No Action cetirizine [All Day Allergy (cetirizine)] 10 mg tablet 10 mg PO DAILY PRN (Reason: allergy symptoms) 90 Days Qty: 90 1RF cyclobenzaprine 10 mg tablet 10 mg PO TID PRN (Reason: muscle spasm) 30 Days Qty: 90 3RF montelukast 10 mg tablet 10 mg PO DAILY 30 Days Qty: 30 0RF ziprasidone HCl 60 mg Capsule 60 mg PO BIDWM 30 Days Qty: 60 0RF buspirone 10 mg Tablet 10 mg PO DAILY 30 Days Qty: 30 0RF atorvastatin 10 mg tablet 10 mg PO BEDTIME 30 Days Qty: 30 0RF albuterol sulfate [Ventolin HFA] 90 mcg/actuation HFA aerosol inhaler 2 puff PO Q4H PRN (Reason: bronchospasm) 30 Days Qty: 8.5 0RF fluticasone propion-salmeterol [Advair HFA] 115-21 mcg/actuation HFA aerosol inhaler 2 puff inhalation BID 30 Days Qty: 12 0RF meclizine 25 mg tablet 25 mg PO DAILY PRN (Reason: for motion sickness) Qty: 90 2RF fluticasone propionate [Flonase Allergy Relief] 50 mcg/actuation spray,suspension 1 spray intranasal DAILY 30 Days Qty: 16 5RF Rx Instructions: administer into each nostril umeclidinium 62.5 mcg/actuation blister with device 1 inh INHALATION BEDTIME 30 Days Qty: 30 6RF cephalexin 500 mg capsule 500 mg PO Q8H 7 Days Qty: 21 0RF Referrals: Roxie Guevara MD [Physician] - Print Language: [place]se
[2024-09-22 06:14] VITALS: BP 111/59; PULSE 79; RESP 16; TEMP 36.4; O2SAT 96
--- NOTE | 2024-09-22 06:14 | MHC.EDTECH ---
Asked Pt if she is able to provide urine sample at this time and Pt states she is unable to.
[2024-09-22 07:55] VITALS: BP 139/81; PULSE 95; RESP 16; TEMP 36.9; O2SAT 94
[2024-09-22 08:13] LABS: Appearance Urine Clear; Color Urine Yellow; Glucose Urine UA Negative (Negative); Leukocyte Esterase Urine Trace (Negative); Nitrite Urine Negative (Negative); PH 7.5 (5.0-9.0); Specific Gravity - Urine 1.025 (1.005-1.025); UMIC TRIGGER UACC YES; Urine Blood Negative (Negative); Urine Ketones Trace mg/dL (Negative); Urine Protein Trace mg/dL (Neg-Trace)
[2024-09-22 08:21] LABS: Bacteria Urine Trace (None Seen); Hyaline Casts Urine 0-2 /LPF (0-2); RBC Urine 0-2 /HPF (0-2); Squamous Epithelial Cell Urine 0-2 /HPF (0-2); WBC Urine 0-5 /HPF (0-5)
[2024-09-22 08:54] VITALS: BP 139/81; PULSE 95; RESP 16; TEMP 36.9; O2SAT 94
== END 2024-09-22 08:55 | disposition home or self-care (01) ==
PROVIDERS: Emergency Provider Emergency Medicine
DX: R30.0 Dysuria (principal)
CPT/HCPCS: 81001; 99282; 99284

== ENCOUNTER 2024-09-24 01:10 | Emergency (ER) | payer OTHER, SELFPAY ==
--- NOTE | ~2024-09-24 | US_ITS ---
CLINICAL HISTORY: pain, presumed new cervical lesions, --- Additional Notes or Special Instructions: concern for malignancy and or infection, concerning pelvic US pelvis transabdominal and transvaginal with Doppler Comparison: CT/SR - CT ABDOMEN PELVIS W IV CON - 08/13/24 22:24 EDT Findings: Transabdominal scanning performed for overall anatomy. Transvaginal scanning performed for additional detail. Uterus measures 8.6 x 3.7 x 5.4 cm. Intrauterine device is in satisfactory position within the endometrial canal. Endometrium is within normal limits measuring 5 mm in thickness. There is no evidence of a uterine or cervical mass. There are small nabothian cysts in the cervix. Right ovary measures 3.5 x 1.9 x 2.8 cm. There is no right adnexal mass or fluid collection. There is normal color Doppler and arterial/venous spectral tracings within the right ovary. Left ovary measures 3.7 x 2.3 x 2.3 cm. There is no left adnexal mass or fluid collection. There is normal color Doppler and arterial/venous spectral tracings within the left ovary. There is no free fluid in the pelvis. IMPRESSION: Unremarkable pelvic ultrasound. This document has been electronically signed by: Wil Mills MD on 09/24/2024 04:51:02
[2024-09-24 01:21] VITALS: BP 130/75; PULSE 79; RESP 18; TEMP 37.1; O2SAT 95; BMI 38.7
[2024-09-24 01:55] VITALS: BP 142/78; PULSE 97; O2SAT 97
--- NOTE | 2024-09-24 01:59 | ED.FEMALEGU ---
HPI - Female Genitourinary General Chief complaint: Urogenital-Female Stated complaint: UTI Time Seen by Provider: 09/24/24 01:14 Source: patient History of Present Illness ED Provider: Bailey Ingram PA-C HPI Narrative: 39-year-old female with a history of schizoaffective disorder, bipolar disorder, depression, PTSD, morbid obesity, tobacco abuse, asthma and hyperlipidemia who presents with dysuria of and a clear duration. Patient states she was treated recently seen in our emergency department, found to have a urinary tract infection, she states she ?lost her medication?, she did not complete the course of antibiotics. Associated moist rash over lower abdomen and bilateral inguinal region of unclear duration. Patient states she just noticed the rash today. Lastly, the patient has noted new vaginal discharge that is foul smelling, with the associated vaginal pruritus. Patient emphatically denies risk for STD, new sexual partner; patient states she has been abstinent for years. Patient denies back pain, abdominal pain, nausea vomiting or fever. Related Data Previous Rx's ?Medication ?Instructions ?Recorded fluticasone propionate 50 1 spray intranasal DAILY 30 days 04/27/24 mcg/actuation nasal #16 grams spray,suspension (Flonase Allergy Relief) meclizine 25 mg tablet 25 mg PO DAILY PRN for motion 04/27/24 sickness #90 tabs umeclidinium 62.5 mcg/actuation 1 inh inhalation BEDTIME 30 days 04/27/24 blister powder for inhalation #30 ea cetirizine 10 mg tablet (All Day 10 mg PO DAILY PRN allergy 06/02/24 Allergy (cetirizine)) symptoms 90 days #90 tabs cyclobenzaprine 10 mg tablet 10 mg PO TID PRN muscle spasm 30 06/02/24 days #90 tabs albuterol sulfate 90 mcg/actuation 2 puff PO Q4H PRN bronchospasm 30 08/18/24 aerosol inhaler (Ventolin HFA) days #8.5 grams atorvastatin 10 mg tablet 10 mg PO BEDTIME 30 days #30 tabs 08/18/24 buspirone 10 mg tablet 10 mg PO DAILY 30 days #30 tabs 08/18/24 fluticasone propionate 115 2 puff inhalation BID 30 days #12 08/18/24 mcg-salmeterol 21 mcg/actuation grams HFA inhaler (Advair HFA) ziprasidone HCl 60 mg capsule 60 mg PO BIDWM 30 days #60 caps 08/18/24 montelukast 10 mg tablet 10 mg PO DAILY 30 days #30 tabs 09/14/24 cephalexin 500 mg capsule 500 mg PO Q8H 7 days #21 caps 09/15/24 metronidazole 500 mg tablet 500 mg PO Q8H 7 days #21 tabs 09/24/24 nystatin 100,000 unit/gram topical 1 appl topical BID #60 grams 09/24/24 powder nystatin 100,000 unit/gram topical 1 appl topical QID 14 days #60 09/24/24 powder grams Allergies Allergy/AdvReac Type Severity Reaction Status Date / Time animal dander [PET DANDER] Allergy Unknown Itching Verified 09/24/24 01:23 bee pollen [BEE STINGS] Allergy Unknown Swelling Verified 09/24/24 01:23 house dust Allergy Unknown Unknown Verified 09/24/24 01:23 shellfish derived Allergy Unknown Swelling Verified 09/24/24 01:23 [SHELLFISH DERIVED] Seasonal Allergies Allergy Itching Verified 09/24/24 01:23 Review of Systems Review of Systems: Yes all other systems are reviewed and are negative Constitutional: Constitutional: Denies fatigue and Denies fever(s) Cardiovascular: Cardiovascular: Denies chest pain and Denies dyspnea Respiratory: Respiratory: Denies cough and Denies dyspnea Gastrointestinal: Gastrointestinal: Denies abdominal pain, Denies nausea and Denies vomiting Genitourinary: Genitourinary: Reports dysuria, Denies pelvic pain, Denies flank pain, Reports vaginal discharge and Reports vaginal odor Musculoskeletal: Musculoskeletal: Denies back pain Integumentary/Breasts: Skin/Breast: Reports erythema, Reports rash and Reports wounds Endocrine: Endocrine: Denies fatigue [facility] Past Medical History Attestation statement: The following information was validated with the patient. Medical History Suicidal ideation Bipolar disorder Severe asthma with allergic rhinitis Allergic rhinitis Vertigo Surgical History No pertinent past surgical history Family History Family History Father Lung cancer CVD (cardiovascular disease) Mother Past heart attack Diabetes Emphysema lung CVD (cardiovascular disease) Family/Other FH: mental illness Maternal Grandmother No problems noted. Paternal Grandmother No problems noted. Social History Social History Household Members: Significant Other Housing: Apartment Do you presently have visiting nurse or other home services: No Unable to assess alcohol history related to: Refusing to respond Alcohol intake: current Alcohol intake frequency: 3 or more drinks per day Alcohol type: beer and hard liquor Comment: close observations at night Patient Tobacco Use Status: Refuse Tobacco use screen Tobacco use type: Cigarette Cigarette Packs Per Day: 1.5 Cigarettes Per Day: 30.0 Years Smoked: 19 e-Cigarette/Vaping Use: Never Used Second Hand Smoke Exposure: No Substance Use Type: Crack/Cocaine, Heroin and Marijuana Do you have a plan to hurt others: No Plan service: No Current occupational status: unemployed Sexual orientation: Straight/Heterosexual Cognitive needs: No Hearing needs: No Vision needs: No Physical Exam Vital Signs: Vital Signs: Last Vital Signs Temp 98.7 F 09/24/24 01:21 Pulse 79 09/24/24 01:21 Resp 18 09/24/24 01:21 BP 130/75 09/24/24 01:21 Pulse Ox 95 09/24/24 01:21 O2 Del Method Room Air 09/24/24 01:21 BMI result Body Mass Index 38.7 Const: Other: Alert, disheveled appearance, appears older than stated age Orientation/consciousness: patient oriented x3 Resp: Effort & Inspection: normal respiratory effort Cardio: Other: Normal peripheral perfusion GI: Other: Wet foul smelling rash noted beneath the patient's pannus, extends over mons pubis into bilateral inguinal region, consistent with tinea : Other: No obvious lesions noted over external genitalia. There is foul smelling white, watery discharge noted from cervix and in vaginal canal. I can visualize the strings of her IUD. The cervix is erythematous, friable, has an abraded appearance in some regions, she has multiple nodules that are firm over the cervix. The entire pelvic exam was uncomfortable for the patient Skin: Other: Warm dry no widespread rash Neuro: General: patient oriented x3, gait normal, no focal motor deficits and CN's II-XI intact bilaterally Psych: Other: Cooperative, noted to be responding to internal stimuli at times, talking to herself looking at the wall, denies auditory or visual hallucinations Course Course Course Narrative: Signed out to night team pending labs, imaging and final disposition Medications Administered Discontinued Medications Generic Name Dose Route Start Last Admin Trade Name Shaheed PRN Reason Stop Dose Admin Fluconazole 150 mg 09/24/24 01:54 09/24/24 02:05 Fluconazole 150 Mg Tablet PO 09/24/24 01:55 150 mg ONCE ONE Administration Nystatin 1 appl 09/24/24 01:54 09/24/24 02:05 Nystatin Powder 15 Gm Bottle TOPICAL 09/24/24 01:55 1 appl ONCE ONE Administration Protocol Nystatin 1 appl 09/24/24 02:52 09/24/24 03:53 Nystatin Powder 15 Gm Bottle TOPICAL 09/24/24 02:53 1 appl ONCE ONE Administration Protocol Medical Decision Making Medical Decision Making MDM Narrative: 39-year-old female with a history of schizoaffective disorder, bipolar disorder, depression, PTSD, morbid obesity, tobacco abuse, asthma and hyperlipidemia who presents with dysuria of and a clear duration. Patient states she was treated recently seen in our emergency department, found to have a urinary tract infection, she states she ?lost her medication?, she did not complete the course of antibiotics. Associated moist rash over lower abdomen and bilateral inguinal region of unclear duration. Patient states she just noticed the rash today. Lastly, the patient has noted new vaginal discharge that is foul smelling, with the associated vaginal pruritus. Patient emphatically denies risk for STD, new sexual partner; patient states she has been abstinent for years. Patient denies back pain, abdominal pain, nausea vomiting or fever. Problem: Housing and security, psychiatric illness History: Per patient I have considered the following differential diagnoses: Decompensated psychiatric illness, UTI, pyelonephritis, STD, tinea infection, cervical cancer Plan: In regard to the patient's dysuria we will be collecting a urine sample and screening basic labs. The patient has no systemic symptoms to suggest pyelonephritis. The patient's pelvic exam is most concerning, I am concerned that she likely has cervical cancer. In chart review, the patient last had a normal pelvic exam here at [facility] on January 09, 2023, there were no lesions noted, it was essentially a normal exam. We will be obtaining a transvaginal ultrasound. Despite the patient emphatically denies risk for STD or having sexual partners, her pelvic exam suggest otherwise, I did obtain CT NG and a wet prep. The patient also has a tinea infection under her pannus, it is extensive, we will treat with Diflucan and nystatin powder. I have independently reviewed the following tests: Labs: Leukocytosis noted, not anemic, thrombocytosis noted that is chronic, no electrolyte abnormality, not , urine not infected, U tox negative, serum ethanol negative Transvaginal ultrasound: no acute abnormality 09/24/24 0257 Lola Sanders MD I received sign-out from my colleague VICKIE Ingram ultrasound did not show any acute abnormality. 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 Patient will empirically be treated With metronidazole nystatin will be sent to the patient's pharmacy. patient is calm, states she feels well, denies any pain moving inflammatory disease or tubo-ovarian abscess is not suspected given the patient's findings and physical exam Differential Diagnosis Differential Diagnoses: The differential diagnosis associated with the presentation includes ( Intrauterine or cervical masses, STD, PID) Lab Data MDM Lab Attestation statement: I reviewed the patient's lab results. 09/24/24 01:57 09/24/24 01:57 Labs: Lab Results 09/24/24 Range/Units 01:57 WBC 12.0 H (4.8-10.8) X10*3/uL RBC 4.27 (4.20-5.50) X10*6/uL Hgb 12.6 (12.0-16.0) g/dl Hct 38.2 (37.0-47.0) % MCV 89.5 (80.0-98.0) fL MCH 29.5 (27.0-33.0) pg MCHC 33.0 (31.0-35.0) g/dl RDW 12.1 (11.0-16.0) % Plt Count 417 H (160-400) X10*3/uL MPV 9.7 (9.4-12.3) fL Immature Gran % (Auto) 0.4 (0.0-0.4) % Neut % (Auto) 69.4 (45-73) % Lymph % (Auto) 21.6 (20-40) % [place] % (Auto) 5.3 (2-11) % Eos % (Auto) 2.9 (0-4) % Baso % (Auto) 0.4 (0-2) % Lymph # (Auto) 2.6 (1.2-4.9) X10*3/uL [place] # (Auto) 0.6 (0.1-1.2) X10*3/uL Eos # (Auto) 0.4 (0.0-0.4) X10*3/uL Baso # (Auto) 0.1 (0.0-0.2) X10*3/uL Abs Immat Gran (auto) 0.05 H (0.00-0.03) X10*3/uL Absolute Neuts (auto) 8.3 (2.0-8.3) x10*3/uL Absolute Nucleated RBC 0.000 (0.0-0.012) X10*3/uL Nucleated RBC % (auto) 0.0 (0.0-0.2) /100WBC Sodium 143 (135-145) mmol/L Potassium 3.6 (3.3-5.1) mmol/L Chloride 110 H (96-108) mmol/L Carbon Dioxide 24 (22-29) mmol/L Anion Gap 13 (12-20) BUN 15 (9-16) mg/dL Creatinine 0.63 (0.5-1.4) mg/dL Estim Creat Clear Calc 127.1 Estimated GFR > 60 Random Glucose 95 (60-115) mg/dL Calcium 9.0 (8.4-10.2) mg/dL Total Bilirubin 0.4 (0.0-1.0) mg/dL AST 25 (5-31) U/L ALT 23 (0-31) U/L Alkaline Phosphatase 81 (39-117) U/L Total Protein 6.4 L (6.5-8.0) g/dL Albumin 3.9 (3.5-5.0) g/dL Beta HCG, Quant < 2 mIU/mL Urine Color Yellow Urine Appearance Cloudy Urine pH 7.0 (5.0-9.0) Ur Specific [place] 1.020 (1.005-1.025) Urine Protein Trace (Neg-Trace) mg/dL Urine Glucose (UA) Negative (Negative) mg/dL Urine Ketones Trace (Negative) mg/dL Urine Blood Negative (Negative) Urine Nitrite Negative (Negative) Ur Leukocyte Esterase Small (1+) H (Negative) Urine RBC 0-2 (0-2) /HPF Urine WBC 0-5 (0-5) /HPF Ur Squamous Epith Cells 6-10 (0-2) /HPF Urine Bacteria 2+ (None Seen) Hyaline Casts 0-2 (0-2) /LPF Urine Opiates Screen Not Detected (Not Detect) Ur Buprenorphine Scrn Not Detected (Not Detect) ng/mL Ur Oxycodone Screen Not Detected (Not Detect) ng/mL Urine Methadone Screen Not Detected (Not Detect) ng/mL Urine Fentanyl Screen Not Detected (Not Detect) Ur Barbiturates Screen Not Detected (Not Detect) Ur Phencyclidine Scrn Not Detected (Not Detect) Ur Amphetamines Screen Not Detected (Not Detect) U Benzodiazepines Scrn Not Detected (Not Detect) Urine Cocaine Screen Not Detected (Not Detect) U Marijuana (THC) Screen Not Detected (Not Detect) Ethyl Alcohol < 10 mg/dL Chlam trachomat DNA PCR NOT DETECTED (Not Detect.) N.gonorrhoeae DNA (PCR) NOT DETECTED (Not Detect.) Independent Interpretation I performed an independent interpretation of an: Ultrasound Radiology Impression Discussion of test interpretation with radiology: I have reviewed the radiologist's reading. Radiologist Impression: Findings: Transabdominal scanning performed for overall anatomy. Transvaginal scanning performed for additional detail. Uterus measures 8.6 x 3.7 x 5.4 cm. Intrauterine device is in satisfactory position within the endometrial canal. Endometrium is within normal limits measuring 5 mm in thickness. There is no evidence of a uterine or cervical mass. There are small nabothian cysts in the cervix. Right ovary measures 3.5 x 1.9 x 2.8 cm. There is no right adnexal mass or fluid collection. There is normal color Doppler and arterial/venous spectral tracings within the right ovary. Left ovary measures 3.7 x 2.3 x 2.3 cm. There is no left adnexal mass or fluid collection. There is normal color Doppler and arterial/venous spectral tracings within the left ovary. There is no free fluid in the pelvis. IMPRESSION: Unremarkable pelvic ultrasound. Critical Care Time Critical Care Time Critical Care Time: Yes Total Critical Care Time: 35 Attestation: I have personally provided critical care time. Time includes review of lab data, radiology results, discussion with consultants, and monitoring for potential decompensation. Intervention performed as documented. Discharge Plan Discharge Clinical Impression: Infection due to yeast, Bacterial vaginosis Patient Disposition: Home, Self-Care Instructions: Yeast Infection (ED) Additional Instructions: You were found to have a yeast infection of your abdominal wall in over the groin. See home care instructions. Use the nystatin powder as directed. do not consume any alcohol while you are taking metronidazole Prescriptions: New nystatin 100,000 unit/gram powder 1 appl topical BID Qty: 60 0RF Rx Instructions: Apply to affected areas as directed metronidazole 500 mg tablet 500 mg PO Q8H 7 Days Qty: 21 0RF nystatin 100,000 unit/gram powder 1 appl topical QID 14 Days Qty: 60 1RF No Action cetirizine [All Day Allergy (cetirizine)] 10 mg tablet 10 mg PO DAILY PRN (Reason: allergy symptoms) 90 Days Qty: 90 1RF cyclobenzaprine 10 mg tablet 10 mg PO TID PRN (Reason: muscle spasm) 30 Days Qty: 90 3RF montelukast 10 mg tablet 10 mg PO DAILY 30 Days Qty: 30 0RF ziprasidone HCl 60 mg Capsule 60 mg PO BIDWM 30 Days Qty: 60 0RF buspirone 10 mg Tablet 10 mg PO DAILY 30 Days Qty: 30 0RF atorvastatin 10 mg tablet 10 mg PO BEDTIME 30 Days Qty: 30 0RF albuterol sulfate [Ventolin HFA] 90 mcg/actuation HFA aerosol inhaler 2 puff PO Q4H PRN (Reason: bronchospasm) 30 Days Qty: 8.5 0RF fluticasone propion-salmeterol [Advair HFA] 115-21 mcg/actuation HFA aerosol inhaler 2 puff inhalation BID 30 Days Qty: 12 0RF meclizine 25 mg tablet 25 mg PO DAILY PRN (Reason: for motion sickness) Qty: 90 2RF fluticasone propionate [Flonase Allergy Relief] 50 mcg/actuation spray,suspension 1 spray intranasal DAILY 30 Days Qty: 16 5RF Rx Instructions: administer into each nostril umeclidinium 62.5 mcg/actuation blister with device 1 inh INHALATION BEDTIME 30 Days Qty: 30 6RF cephalexin 500 mg capsule 500 mg PO Q8H 7 Days Qty: 21 0RF Print Language: Tamazight
[2024-09-24 02:05] LABS: MANUAL DIFF FLAG NO
[2024-09-24] MEDS: Nystatin Powder 15 GM BOTTLE 1 APPL TOPICAL ×2 (02:05→03:53)
[2024-09-24] MEDS: Fluconazole 150 MG TABLET PO (02:05)
[2024-09-24 02:07] LABS: Appearance Urine Cloudy; Basophils Absolute Auto 0.1 X10*3/uL (0.0-0.2); Basophils Percent Auto 0.4 % (0-2); Color Urine Yellow; Eosinophils Absolute Auto 0.4 X10*3/uL (0.0-0.4); Eosinophils Percent Auto 2.9 % (0-4); Glucose Urine UA Negative (Negative); Hematocrit 38.2 % (37.0-47.0); Hemoglobin 12.6 g/dl (12.0-16.0); Imm Gran Abs Auto 0.05 X10*3/uL (0.00-0.03); Imm Gran Pct Auto 0.4 % (0.0-0.4); Leukocyte Esterase Urine Small (1+) (Negative); Lymphocytes Absolute Auto 2.6 X10*3/uL (1.2-4.9); Lymphocytes Percent Auto 21.6 % (20-40); Mean Corpuscular Hemoglobin 29.5 pg (27.0-33.0); Mean Corpuscular Volume 89.5 fL (80.0-98.0); Mean Platelet Volume 9.7 fL (9.4-12.3); Monocytes Absolute Auto 0.6 X10*3/uL (0.1-1.2); Monocytes Percent Auto 5.3 % (2-11); Neutrophils Absolute Auto 8.3 x10*3/uL (2.0-8.3); Neutrophils Percent Auto 69.4 % (45-73); Nitrite Urine Negative (Negative); Platelet Count 417 X10*3/uL (160-400); Red Blood Count 4.27 X10*6/uL (4.20-5.50); Red Cell Distribution Width 12.1 % (11.0-16.0); UMIC TRIGGER UACC YES; Urine Blood Negative (Negative); Urine Ketones Trace mg/dL (Negative); Urine Protein Trace mg/dL (Neg-Trace)
[2024-09-24 02:28] LABS: Bacteria Urine 2+ (None Seen); Hyaline Casts Urine 0-2 /LPF (0-2); RBC Urine 0-2 /HPF (0-2); UACC Culture Trigger YES; WBC Urine 0-5 /HPF (0-5)
[2024-09-24 02:29] LABS: Alanine Aminotransferase 23 U/L (0-31); Albumin Level 3.9 g/dL (3.5-5.0); Amphetamine Screen Urine Not Detected (Not Detect); Anion Gap 13 (12-20); Aspartate Amino Transferase 25 U/L (5-31); Barbiturates, Urine Not Detected (Not Detect); Benzodiazepines Screen Urine Not Detected (Not Detect); Bilirubin Total 0.4 mg/dL (0.0-1.0); Blood Urea Nitrogen 15 mg/dL (9-16); Buprenorphine Scr Not Detected (Not Detect); Cannabinoid Screen Urine Not Detected (Not Detect); Carbon Dioxide 24 mmol/L (22-29); Chloride 110 mmol/L (96-108); Cocaine Screen Urine Not Detected (Not Detect); Creatinine Clr Calc Pharmacy 127.1; Estimated Glomerular Filt Rate > 60; Ethanol < 10 mg/dL; Fentanyl, urine Not Detected (Not Detect); Glucose Random 95 mg/dL (60-115); Methadone Screen, Urine Not Detected (Not Detect); Opiate Screen Urine Not Detected (Not Detect); Oxycodone Screen Urine Not Detected (Not Detect); Phencyclidine Screen Urine Not Detected (Not Detect); Potassium 3.6 mmol/L (3.3-5.1); Sodium 143 mmol/L (135-145); Total Protein 6.4 g/dL (6.5-8.0)
[2024-09-24 02:35] LABS: HCG Quantitative < 2 mIU/mL
[2024-09-24 03:02] LABS: Alkaline Phosphatase 81 U/L (39-117)
[2024-09-24 03:32] LABS: CT PCR NOT DETECTED (Not Detect.); NG PCR NOT DETECTED (Not Detect.)
[2024-09-24 05:06] VITALS: BP 139/78; PULSE 80; RESP 16; TEMP 36.9; O2SAT 97
[2024-09-24] MEDS: metroNIDAZOLE 500 MG TABLET PO (05:14)
[2024-09-24 05:34] VITALS: BP 139/78; PULSE 80; RESP 16; TEMP 36.9; O2SAT 97
[2024-09-24 11:31] LABS: Bacterial Vaginosis PCR POSITIVE (Negative); Candida Group PCR NOT DETECTED (Not Detect); Candida glab krusei PCR NOT DETECTED (Not Detect); Trichomonas vaginalis PCR NOT DETECTED (Not Detect)
== END 2024-09-24 05:36 | disposition home or self-care (01) ==
LOC: HO.ED 05:33
PROVIDERS: Physician Assistant Medical; Emergency Provider Emergency Medicine
DX: N76.0 Acute vaginitis (principal); B37.31 Acute candidiasis of vulva and vagina; N39.0 Urinary tract infection, site not specified; R10.2 Pelvic and perineal pain; Z51.81 Encounter for therapeutic drug level monitoring; Z79.899 Other long term (current) drug therapy
CPT/HCPCS: 36415; 76830; 76856; 80053; 80307; 81001; 81515; 84702; 85025; 87086; 87491; 87591; 93975; 99284

== ENCOUNTER → 2024-09-24 01:52 | Outpatient (BNV) | payer OTHER, SELFPAY | PROVIDERS: Emergency Provider Emergency Medicine; Visit Provider Radiology Diagnostic Radiology | DX: R10.2 Pelvic and perineal pain (principal) | CPT/HCPCS: 76830; 76856; 93975 ==

== ENCOUNTER 2024-09-25 15:32 | Emergency (ER) | payer OTHER, SELFPAY ==
[2024-09-25 15:50] VITALS: BP 110/78; BP 119/60; PULSE 100; PULSE 92; RESP 16; TEMP 36.8; O2SAT 98; BMI 37.5
[2024-09-25 16:33] LABS: Glucose, Whole Blood 80 mg/dL (60-115)
--- NOTE | 2024-09-25 16:59 | ED.GENADULT ---
HPI - General Adult General Chief complaint: Skin/Abscess/Foreign Body Stated complaint: weak, dizzy, has diabetes hasn't taken meds yet. Time Seen by Provider: 09/25/24 16:58 Source: patient, RN notes reviewed and old records reviewed Mode of arrival: EMS Limitations: no limitations History of Present Illness ED Provider: Mamta HPI narrative: 39-year-old female with a past medical history significant for schizoaffective disorder, bipolar disorder, depression, PTSD presents for evaluation of dizziness. The patient does have a history of vertigo as well. Patient called an ambulance because she was concerned that her blood sugar was high. She also complains of weakness and dizziness as well as a rash on her abdomen. Shortly after arrival to the ED the patient attempted to elope from the emergency department. She was stopped by nursing staff and was able to evaluate the patient prior to her leaving. She reports to me that she no longer has any dizziness, she has no pain and does not wish for any further interventions or evaluations. Related Data Previous Rx's ?Medication ?Instructions ?Recorded fluticasone propionate 50 1 spray intranasal DAILY 30 days 04/27/24 mcg/actuation nasal #16 grams spray,suspension (Flonase Allergy Relief) meclizine 25 mg tablet 25 mg PO DAILY PRN for motion 04/27/24 sickness #90 tabs umeclidinium 62.5 mcg/actuation 1 inh inhalation BEDTIME 30 days 04/27/24 blister powder for inhalation #30 ea cetirizine 10 mg tablet (All Day 10 mg PO DAILY PRN allergy 06/02/24 Allergy (cetirizine)) symptoms 90 days #90 tabs cyclobenzaprine 10 mg tablet 10 mg PO TID PRN muscle spasm 30 06/02/24 days #90 tabs albuterol sulfate 90 mcg/actuation 2 puff PO Q4H PRN bronchospasm 30 08/18/24 aerosol inhaler (Ventolin HFA) days #8.5 grams atorvastatin 10 mg tablet 10 mg PO BEDTIME 30 days #30 tabs 08/18/24 buspirone 10 mg tablet 10 mg PO DAILY 30 days #30 tabs 08/18/24 fluticasone propionate 115 2 puff inhalation BID 30 days #12 08/18/24 mcg-salmeterol 21 mcg/actuation grams HFA inhaler (Advair HFA) ziprasidone HCl 60 mg capsule 60 mg PO BIDWM 30 days #60 caps 08/18/24 montelukast 10 mg tablet 10 mg PO DAILY 30 days #30 tabs 09/14/24 cephalexin 500 mg capsule 500 mg PO Q8H 7 days #21 caps 09/15/24 metronidazole 500 mg tablet 500 mg PO Q8H 7 days #21 tabs 09/24/24 nystatin 100,000 unit/gram topical 1 appl topical BID #60 grams 09/24/24 powder nystatin 100,000 unit/gram topical 1 appl topical QID 14 days #60 09/24/24 powder grams Allergies Allergy/AdvReac Type Severity Reaction Status Date / Time animal dander [PET DANDER] Allergy Unknown Itching Verified 09/25/24 15:54 bee pollen [BEE STINGS] Allergy Unknown Swelling Verified 09/24/24 01:23 house dust Allergy Unknown Unknown Verified 09/24/24 01:23 shellfish derived Allergy Unknown Swelling Verified 09/24/24 01:23 [SHELLFISH DERIVED] Seasonal Allergies Allergy Itching Verified 09/24/24 01:23 Review of Systems Constitutional: Constitutional: Denies body ache(s), Denies chills and Denies headache(s) Eyes: Eyes: Denies blurry vision and Denies exophthalmos ENT: Denies vertigo, Denies dizziness and Denies headache(s) Cardiovascular: Cardiovascular: Denies chest pain and Denies dyspnea Respiratory: Respiratory: Denies cough and Denies dyspnea Gastrointestinal: Gastrointestinal: Denies abdominal pain, Denies nausea and Denies vomiting Musculoskeletal: Musculoskeletal: Denies back pain Integumentary/Breasts: Skin/Breast: Reports rash Neurologic: Denies vertigo, Denies dizziness and Denies headache(s) Psychiatric: Psychiatric: Denies anxiety PMFSH Past Medical History Medical History Suicidal ideation Bipolar disorder Severe asthma with allergic rhinitis Allergic rhinitis Vertigo Surgical History No pertinent past surgical history Family History Family History Father Lung cancer CVD (cardiovascular disease) Mother Past heart attack Diabetes Emphysema lung CVD (cardiovascular disease) Family/Other FH: mental illness Maternal Grandmother No problems noted. Paternal Grandmother No problems noted. Social History Social History Household Members: Significant Other Housing: Apartment Do you presently have visiting nurse or other home services: No Unable to assess alcohol history related to: Refusing to respond Alcohol intake: current Alcohol intake frequency: former alcohol drinker Alcohol type: beer and hard liquor Comment: close observations at night Patient Tobacco Use Status: Refuse Tobacco use screen Tobacco use type: Cigarette Cigarette Packs Per Day: 1.5 Cigarettes Per Day: 30.0 Years Smoked: 19 e-Cigarette/Vaping Use: Never Used Second Hand Smoke Exposure: No Substance Use Type: Crack/Cocaine, Heroin and Marijuana Advance Directives: No Advance Directives Information Provided: No Do you have a plan to hurt others: No Plan Patient : No service: No Current occupational status: unemployed Sexual orientation: Straight/Heterosexual Cognitive needs: No Hearing needs: No Vision needs: No Physical Exam ED Vital Signs: Vital Signs - 24 hr 09/25/24 15:50 09/25/24 17:10 Temperature 98.2 F 98.2 F Pulse Rate 92 92 Respiratory Rate 16 16 Blood Pressure 119/60 119/60 Pulse Oximetry 98 98 Oxygen Delivery Method Room Air Room Air BMI result Body Mass Index 37.5 Const General: healthy appearing, comfortable, no acute distress, alert and awake Nutritional Appearance: well nourished Orientation/consciousness: patient oriented x3 HENMT Head: Yes normocephalic and Yes atraumatic Eyes Eyelids: Yes eyelids normal Conjunctivae: conjunctivae normal Sclerae: sclerae normal Corneas: corneas normal Pupils: Equal, round and reactive pupils present EOM: EOMs intact bilaterally Neck Neck: Yes full ROM Resp Effort & Inspection: normal respiratory effort, able to speak in complete sentences and not labored Skin General skin exam: elasticity normal Neuro General: patient oriented x3 Cranial nerves: Yes Equal, round and reactive pupils present and Yes Bilaterally intact EOM present Cognition (Neuro): normal cognition Extrem Other: Moving all extremities well without any obvious deformities Medical Decision Making Medical Decision Making MDM Narrative: 39-year-old female with a past medical history as above presents for evaluation of dizziness. She reports her symptoms have resolved. A point of care glucose was checked showing a glucose of 60. The patient no longer wishes for any further evaluation and management. She proves that she is awake, alert and oriented. The patient was discharged with stable vitals Differential Diagnosis Differential Diagnoses: The differential diagnosis associated with the presentation includes Dizziness Homelessness Orthostasis Hyperglycemia Lab Data Labs: Lab Results 09/25/24 Range/Units 16:27 POC Glucose 80 (60-115) mg/dL Discharge Plan Discharge Clinical Impression: Dizziness Patient Disposition: Home, Self-Care Instructions: Dizziness (ED) Additional Instructions: Your blood sugar today was 80 You declined any other evaluation in the ER. If you change your mind and wish to be re-evaluated, return to the ER for any new or worsening symptoms Prescriptions: No Action cetirizine [All Day Allergy (cetirizine)] 10 mg tablet 10 mg PO DAILY PRN (Reason: allergy symptoms) 90 Days Qty: 90 1RF cyclobenzaprine 10 mg tablet 10 mg PO TID PRN (Reason: muscle spasm) 30 Days Qty: 90 3RF montelukast 10 mg tablet 10 mg PO DAILY 30 Days Qty: 30 0RF ziprasidone HCl 60 mg Capsule 60 mg PO BIDWM 30 Days Qty: 60 0RF buspirone 10 mg Tablet 10 mg PO DAILY 30 Days Qty: 30 0RF atorvastatin 10 mg tablet 10 mg PO BEDTIME 30 Days Qty: 30 0RF albuterol sulfate [Ventolin HFA] 90 mcg/actuation HFA aerosol inhaler 2 puff PO Q4H PRN (Reason: bronchospasm) 30 Days Qty: 8.5 0RF fluticasone propion-salmeterol [Advair HFA] 115-21 mcg/actuation HFA aerosol inhaler 2 puff inhalation BID 30 Days Qty: 12 0RF meclizine 25 mg tablet 25 mg PO DAILY PRN (Reason: for motion sickness) Qty: 90 2RF fluticasone propionate [Flonase Allergy Relief] 50 mcg/actuation spray,suspension 1 spray intranasal DAILY 30 Days Qty: 16 5RF Rx Instructions: administer into each nostril umeclidinium 62.5 mcg/actuation blister with device 1 inh INHALATION BEDTIME 30 Days Qty: 30 6RF cephalexin 500 mg capsule 500 mg PO Q8H 7 Days Qty: 21 0RF nystatin 100,000 unit/gram powder 1 appl topical BID Qty: 60 0RF Rx Instructions: Apply to affected areas as directed metronidazole 500 mg tablet 500 mg PO Q8H 7 Days Qty: 21 0RF nystatin 100,000 unit/gram powder 1 appl topical QID 14 Days Qty: 60 1RF Interventions: ED Discharge Assessment Last Done: 09/25/24 17:10 Discharge Date/Time: 09/25/24 17:13 Print Language: Maltese
[2024-09-25 17:10] VITALS: BP 119/60; PULSE 92; RESP 16; TEMP 36.8; O2SAT 98
== END 2024-09-25 17:13 | disposition home or self-care (01) ==
PROVIDERS: Emergency Provider Emergency Medicine
DX: R42 Dizziness and giddiness (principal); E11.9 Type 2 diabetes mellitus without complications; Z79.899 Other long term (current) drug therapy; F17.210 Nicotine dependence, cigarettes, uncomplicated
CPT/HCPCS: 82947; 99283; 99284

== ENCOUNTER 2024-10-01 08:55 | Emergency (ER) | payer OTHER, SELFPAY ==
[2024-10-01 08:57] VITALS: BP 133/78; PULSE 96; RESP 20; TEMP 37; O2SAT 96; BMI 38.5
[2024-10-01 09:28] VITALS: BP 125/65; PULSE 80; RESP 16; TEMP 36.9; O2SAT 98
--- NOTE | 2024-10-01 09:57 | ED_ITS ---
HPI - General Adult General Chief complaint: General Medical Stated complaint: Fungal Infection Time Seen by Provider: 10/01/24 09:37 Source: patient and RN notes reviewed Mode of arrival: ambulatory Limitations: no limitations History of Present Illness ED Provider: Vivian Ford PA-C HPI narrative: This is a 39-year-old female who presents emergency department with concerns for rash on her abdomen and groin. She states that she has had this for several weeks and states that she has been seen here multiple times. She states that she has been prescribed medications however she keeps losing her medications. She is currently homeless. She denies any fevers or chills. She denies any chest pain, shortness for breath, abdominal pain, nausea, vomiting or diarrhea. No urinary symptoms. She states that she only took several days worth of this medication prior to losing to medicine. No other complaints or concerns at this time. MD complaint: Rash Onset (ago): day(s) Relieving factors: none Exacerbating factors: none Associated symptoms: denies other symptoms Treatments prior to arrival: none Related Data Previous Rx's ?Medication ?Instructions ?Recorded fluticasone propionate 50 1 spray intranasal DAILY 30 days 04/27/24 mcg/actuation nasal #16 grams spray,suspension (Flonase Allergy Relief) meclizine 25 mg tablet 25 mg PO DAILY PRN for motion 04/27/24 sickness #90 tabs umeclidinium 62.5 mcg/actuation 1 inh inhalation BEDTIME 30 days 04/27/24 blister powder for inhalation #30 ea cetirizine 10 mg tablet (All Day 10 mg PO DAILY PRN allergy 06/02/24 Allergy (cetirizine)) symptoms 90 days #90 tabs cyclobenzaprine 10 mg tablet 10 mg PO TID PRN muscle spasm 30 06/02/24 days #90 tabs albuterol sulfate 90 mcg/actuation 2 puff PO Q4H PRN bronchospasm 30 08/18/24 aerosol inhaler (Ventolin HFA) days #8.5 grams atorvastatin 10 mg tablet 10 mg PO BEDTIME 30 days #30 tabs 08/18/24 buspirone 10 mg tablet 10 mg PO DAILY 30 days #30 tabs 08/18/24 fluticasone propionate 115 2 puff inhalation BID 30 days #12 08/18/24 mcg-salmeterol 21 mcg/actuation grams HFA inhaler (Advair HFA) ziprasidone HCl 60 mg capsule 60 mg PO BIDWM 30 days #60 caps 08/18/24 montelukast 10 mg tablet 10 mg PO DAILY 30 days #30 tabs 09/14/24 cephalexin 500 mg capsule 500 mg PO Q8H 7 days #21 caps 09/15/24 metronidazole 500 mg tablet 500 mg PO Q8H 7 days #21 tabs 09/24/24 nystatin 100,000 unit/gram topical 1 appl topical BID #60 grams 09/24/24 powder nystatin 100,000 unit/gram topical 1 appl topical QID 14 days #60 09/24/24 powder grams metronidazole 500 mg tablet 500 mg PO BID 7 days #14 tabs 10/01/24 nystatin 100,000 unit/gram topical 1 appl topical TID #30 grams 10/01/24 powder Allergies Allergy/AdvReac Type Severity Reaction Status Date / Time animal dander [PET DANDER] Allergy Unknown Itching Verified 10/01/24 09:01 bee pollen [BEE STINGS] Allergy Unknown Swelling Verified 10/01/24 09:01 house dust Allergy Unknown Unknown Verified 10/01/24 09:01 shellfish derived Allergy Unknown Swelling Verified 10/01/24 09:01 [SHELLFISH DERIVED] Seasonal Allergies Allergy Itching Verified 10/01/24 09:01 Review of Systems Review of Systems: Yes all other systems are reviewed and are negative Constitutional: Constitutional: Reports as per [facility] Past Medical History Attestation statement: The following information was validated with the patient. Medical History Suicidal ideation Bipolar disorder Severe asthma with allergic rhinitis Allergic rhinitis Vertigo Surgical History No pertinent past surgical history Family History Family History Father Lung cancer CVD (cardiovascular disease) Mother Past heart attack Diabetes Emphysema lung CVD (cardiovascular disease) Family/Other FH: mental illness Maternal Grandmother No problems noted. Paternal Grandmother No problems noted. Social History Social History Household Members: Significant Other Housing: Apartment Do you presently have visiting nurse or other home services: No Unable to assess alcohol history related to: Refusing to respond Alcohol intake: current Alcohol intake frequency: former alcohol drinker Alcohol type: beer and hard liquor Comment: close observations at night Patient Tobacco Use Status: Refuse Tobacco use screen Tobacco use type: Cigarette Cigarette Packs Per Day: 1.5 Cigarettes Per Day: 30.0 Years Smoked: 19 e-Cigarette/Vaping Use: Never Used Second Hand Smoke Exposure: No Substance Use Type: Crack/Cocaine, Heroin and Marijuana Advance Directives: No Advance Directives Information Provided: No Do you have a plan to hurt others: No Plan service: No Current occupational status: unemployed Sexual orientation: Straight/Heterosexual Cognitive needs: No Hearing needs: No Vision needs: No Physical Exam ED Vital Signs: Vital Signs - 24 hr 10/01/24 08:57 10/01/24 09:28 10/01/24 10:28 Temperature 98.6 F 98.4 F 98.4 F Pulse Rate 96 80 80 Respiratory Rate 20 16 16 Blood Pressure 133/78 125/65 125/65 Pulse Oximetry 96 98 98 Oxygen Delivery Method Room Air Room Air Room Air BMI result Body Mass Index 38.5 Const Other: Appearance: Alert. Oriented X3. No acute distress. Eyes: Pupils equal, round and reactive to light. ENT: Pharynx normal. Neck: Normal inspection. Neck supple. CVS: Normal heart rate and rhythm. Pulses normal. Respiratory: No respiratory distress. Breath sounds normal. Skin: Moist, foul-smelling beefy erythematous rash noted below bilateral breasts and in the abdominal fold. No fluctuance or induration. Abdomen: Soft and nontender. +BS x4 Extremities: No lower extremity edema. Neuro: Oriented X 3. No motor deficit. No sensory deficit. CN II-XII intact. Medical Decision Making Medical Decision Making MDM Narrative: This is a 39-year-old female, with a past medical history of schizoaffective disorder, hyperlipidemia, PTSD, who presents emergency department with concerns for rash to her chest and groin for several weeks. On arrival, patient is well- appearing, under no acute distress, vital signs within normal limits. She is speaking in full sentences. Patient has extensive candidiasis noted below her bilateral breasts, and abdominal folds. Patient has been seen here multiple times for similar symptoms, she states that she keeps losing her medication therefore she is unable to see if this has improved her symptoms as she only has had several days worth of this treatment. Of note, she did test positive for bacterial vaginosis and was prescribed metronidazole. She states that she only took several days of this. I discussed this with patient. Stressed the importance of continuing this medication, and given strict return precautions. She understands and agrees with plan. Patient stable for discharge Differential Diagnosis Differential Diagnoses: The differential diagnosis associated with the presentation includes Contact dermatitis, candidiasis, cellulitis, folliculitis, abscess Discharge Plan Discharge Clinical Impression: Yeast infection, Bacterial vaginosis Patient Disposition: Home, Self-Care Instructions: Yeast Infection (ED) Additional Instructions: You were seen in the emergency department due to a rash. You have a yeast infection on your abdominal wall as well as underneath her breast. Please use nystatin powder as directed. I am also starting you on metronidazole, please take this as prescribed. This is treatment for the bacterial vaginosis you tested positive for at your last visit. Bacterial vaginosis is an overgrowth of the normal vaginal ion. Do not mix this with alcohol as you will get very ill. Keep areas clean and dry. If any new or worsening symptoms occur including but not limited to high fevers, chills, worsening redness, pain, please seek [facility] care. Prescriptions: New nystatin 100,000 unit/gram powder 1 appl topical TID Qty: 30 0RF metronidazole 500 mg tablet 500 mg PO BID 7 Days Qty: 14 0RF No Action cetirizine [All Day Allergy (cetirizine)] 10 mg tablet 10 mg PO DAILY PRN (Reason: allergy symptoms) 90 Days Qty: 90 1RF cyclobenzaprine 10 mg tablet 10 mg PO TID PRN (Reason: muscle spasm) 30 Days Qty: 90 3RF montelukast 10 mg tablet 10 mg PO DAILY 30 Days Qty: 30 0RF ziprasidone HCl 60 mg Capsule 60 mg PO BIDWM 30 Days Qty: 60 0RF buspirone 10 mg Tablet 10 mg PO DAILY 30 Days Qty: 30 0RF atorvastatin 10 mg tablet 10 mg PO BEDTIME 30 Days Qty: 30 0RF albuterol sulfate [Ventolin HFA] 90 mcg/actuation HFA aerosol inhaler 2 puff PO Q4H PRN (Reason: bronchospasm) 30 Days Qty: 8.5 0RF fluticasone propion-salmeterol [Advair HFA] 115-21 mcg/actuation HFA aerosol inhaler 2 puff inhalation BID 30 Days Qty: 12 0RF meclizine 25 mg tablet 25 mg PO DAILY PRN (Reason: for motion sickness) Qty: 90 2RF fluticasone propionate [Flonase Allergy Relief] 50 mcg/actuation spray,suspension 1 spray intranasal DAILY 30 Days Qty: 16 5RF Rx Instructions: administer into each nostril umeclidinium 62.5 mcg/actuation blister with device 1 inh INHALATION BEDTIME 30 Days Qty: 30 6RF cephalexin 500 mg capsule 500 mg PO Q8H 7 Days Qty: 21 0RF nystatin 100,000 unit/gram powder 1 appl topical BID Qty: 60 0RF Rx Instructions: Apply to affected areas as directed metronidazole 500 mg tablet 500 mg PO Q8H 7 Days Qty: 21 0RF nystatin 100,000 unit/gram powder 1 appl topical QID 14 Days Qty: 60 1RF Interventions: ED Discharge Assessment Last Done: 10/01/24 10:28 Discharge Date/Time: 10/01/24 10:35 Print Language: Turkish
[2024-10-01 10:28] VITALS: BP 125/65; PULSE 80; RESP 16; TEMP 36.9; O2SAT 98
== END 2024-10-01 10:35 | disposition home or self-care (01) ==
PROVIDERS: Emergency Provider Emergency Medicine Emergency Medical Services; PCP Internal Medicine
DX: N76.0 Acute vaginitis (principal); B37.9 Candidiasis, unspecified; R21 Rash and other nonspecific skin eruption; Z59.00 Homelessness unspecified
CPT/HCPCS: 99283; 99284

== ENCOUNTER 2024-10-02 07:34 | Emergency (ER) | payer OTHER, SELFPAY ==
--- NOTE | ~2024-10-02 | XR_ITS ---
CLINICAL HISTORY: wheezing 2 view chest x-ray Comparison: None Findings: No consolidation or effusion. Normal size heart. No acute fracture. IMPRESSION: 1. No acute findings. This document has been electronically signed by: Justo Silver MD on 10/02/2024 10:10:31
[2024-10-02 07:47] VITALS: BP 136/84; BP 147/80; PULSE 70; PULSE 80; RESP 18; TEMP 36.7; O2SAT 95; O2SAT 99; BMI 40.4
--- NOTE | 2024-10-02 08:52 | ED.GENADULT ---
HPI - General Adult General Chief complaint: General Medical Stated complaint: PT STS FEELING FAINT PER EMS Time Seen by Provider: 10/02/24 08:27 Source: patient and EMS Mode of arrival: EMS Limitations: no limitations History of Present Illness ED Provider: MARIE MANCERA PA-C HPI narrative: This is a 39 year old female with a PMHX of COPD, schizoaffective disorder, bipolar disorder, and seasonal allergies, currently experiencing homelessness presents to the ED today stating she feels malnourished, requesting food. Denies having access to any homeless shelters. She tells me she is 97 pounds and losing weight as she is unable to purchase food. Initially reported feeling wheezy however is now declining this. Denies fever, chills, sore throat, cough, sputum production, chest pain, sob, N/V, abdominal pain, flank pain, urinary symptoms. Denies ilicit substance use or etoh consumption. Related Data Previous Rx's ?Medication ?Instructions ?Recorded fluticasone propionate 50 1 spray intranasal DAILY 30 days 04/27/24 mcg/actuation nasal #16 grams spray,suspension (Flonase Allergy Relief) meclizine 25 mg tablet 25 mg PO DAILY PRN for motion 04/27/24 sickness #90 tabs umeclidinium 62.5 mcg/actuation 1 inh inhalation BEDTIME 30 days 04/27/24 blister powder for inhalation #30 ea cetirizine 10 mg tablet (All Day 10 mg PO DAILY PRN allergy 06/02/24 Allergy (cetirizine)) symptoms 90 days #90 tabs cyclobenzaprine 10 mg tablet 10 mg PO TID PRN muscle spasm 30 06/02/24 days #90 tabs albuterol sulfate 90 mcg/actuation 2 puff PO Q4H PRN bronchospasm 30 08/18/24 aerosol inhaler (Ventolin HFA) days #8.5 grams atorvastatin 10 mg tablet 10 mg PO BEDTIME 30 days #30 tabs 08/18/24 buspirone 10 mg tablet 10 mg PO DAILY 30 days #30 tabs 08/18/24 fluticasone propionate 115 2 puff inhalation BID 30 days #12 08/18/24 mcg-salmeterol 21 mcg/actuation grams HFA inhaler (Advair HFA) ziprasidone HCl 60 mg capsule 60 mg PO BIDWM 30 days #60 caps 08/18/24 montelukast 10 mg tablet 10 mg PO DAILY 30 days #30 tabs 09/14/24 cephalexin 500 mg capsule 500 mg PO Q8H 7 days #21 caps 09/15/24 metronidazole 500 mg tablet 500 mg PO Q8H 7 days #21 tabs 09/24/24 nystatin 100,000 unit/gram topical 1 appl topical BID #60 grams 09/24/24 powder nystatin 100,000 unit/gram topical 1 appl topical QID 14 days #60 09/24/24 powder grams metronidazole 500 mg tablet 500 mg PO BID 7 days #14 tabs 10/01/24 nystatin 100,000 unit/gram topical 1 appl topical TID #30 grams 10/01/24 powder Allergies Allergy/AdvReac Type Severity Reaction Status Date / Time animal dander [PET DANDER] Allergy Unknown Itching Verified 10/02/24 07:49 bee pollen [BEE STINGS] Allergy Unknown Swelling Verified 10/02/24 07:49 house dust Allergy Unknown Unknown Verified 10/02/24 07:49 shellfish derived Allergy Unknown Swelling Verified 10/02/24 07:49 [SHELLFISH DERIVED] Seasonal Allergies Allergy Itching Verified 10/02/24 07:49 Review of Systems Review of Systems: Constitutional: No fever, chills, fatigue, night sweats, weight changes ENT/Mouth: No ear pain, hearing loss, nasal congestion, sinus pain, rhinorrhea, sore throat Eyes: No eye pain, swelling, redness, vision changes, discharge Cardio: No chest pain, palpitations, MURO, orthopnea, peripheral edema Pulm: No SOB, cough, sputum, dyspnea, hemoptysis, +wheezing GI: No hematemesis, abdominal pain, diarrhea, constipation, hematochezia, melena, +N/V : No irregular bleeding, dysuria, frequency, urgency, hesitancy, hematuria, flank pain, urinary flow changes, urinary incontinence or retention MSK: No back pain, neck pain, joint pain, myalgias Skin: No lesions, rashes Neuro: No weakness, numbness, paresthesias, LOC, dizziness, headache Psych: No anxiety/panic, depression, SI/HI, AH/VH All other systems reviewed and are negative. Yes all other systems are reviewed and are negative [facility] Past Medical History Attestation statement: The following information was validated with the patient. Source: old records reviewed and nursing notes reviewed Medical History Suicidal ideation Bipolar disorder Severe asthma with allergic rhinitis Allergic rhinitis Vertigo Surgical History No pertinent past surgical history Family History Family History Father Lung cancer CVD (cardiovascular disease) Mother Past heart attack Diabetes Emphysema lung CVD (cardiovascular disease) Family/Other FH: mental illness Maternal Grandmother No problems noted. Paternal Grandmother No problems noted. Social History Social History Household Members: Significant Other Housing: Apartment Do you presently have visiting nurse or other home services: No Unable to assess alcohol history related to: Refusing to respond Alcohol intake: current Alcohol intake frequency: former alcohol drinker Alcohol type: beer and hard liquor Comment: close observations at night Patient Tobacco Use Status: Refuse Tobacco use screen Tobacco use type: Cigarette Cigarette Packs Per Day: 1.5 Cigarettes Per Day: 30.0 Years Smoked: 19 Smoked in Last 30 Days: No e-Cigarette/Vaping Use: Never Used Second Hand Smoke Exposure: No Use of substances other than those prescribed or required for medical reasons: No Substance Use Type: Crack/Cocaine, Heroin and Marijuana Advance Directives: No Advance Directives Information Provided: Yes Do you have a plan to hurt others: No Plan Patient : No service: No Current occupational status: unemployed Sexual orientation: Straight/Heterosexual Cognitive needs: No Hearing needs: No Vision needs: No Physical Exam ED Vital Signs: Vital Signs - 24 hr 10/02/24 07:47 10/02/24 10:11 Temperature 98.1 F 97.8 F Pulse Rate 70 73 Respiratory Rate 18 Blood Pressure 136/84 131/73 Pulse Oximetry 99 96 Oxygen Delivery Method Room Air Room Air BMI result Body Mass Index 40.4 Vital signs stable, afebrile, not hypoxic, not tachycardic General: Well appearing, in no acute distress. Skin: Warm, dry, intact. No rashes or lesions. Head: Normocephalic, atraumatic. EENT: Hearing is intact b/l. Conjunctiva clear. PERRLA. EOM intact. Moist mucous membranes.? Neck: Supple without LAD Cardiac: Chest wall symmetric. RRR Lungs: Normal respiratory effort without accessory muscle use. no tripoding. diminished breath sounds throughout, no adventitious breath sounds. Abdomen: Soft, non-tender, non-distended. No rebound tenderness or guarding. Positive BS x4. Back: No midline spinous or paraspinal tenderness. No step off deformity. Ext: Upper and lower extremities atraumatic, without tenderness, deformity, swelling or erythema. Neuro: AOx3. Normal speech. Ambulating with steady gait Course Course Course Narrative: CBC without leukocytosis or left shift. No anemia. H&H stable. Chemistry without acute electrolyte abnormality requiring intervention. No SEGUNDO. Liver function WNL. Chest x-ray unremarkable. Negative COVID, flu, RSV. > patient has no complaints. Provided with list of shelters and temporary housing, advised to call. > patient can be discharged home after she receives food. Patient has remained stable throughout ED visit today. Discussed worrisome signs and symptoms and when to return to the ED. All questions answered at this time. Patient is agreeable with disposition and stable for discharge. Medical Decision Making Medical Decision Making [facility] Narrative: This is a 39 year old female with a PMHX of COPD, schizoaffective disorder, bipolar disorder, and seasonal allergies, currently experiencing homelessness presents to the ED today stating she feels malnourished, requesting food. Vitals are stable, afebrile. She is well-appearing and in no acute distress. Does not appear malnourished. Obese abdomen, soft, ND/ND. Differential diagnosis includes homelessness, dehydration, malnourishment, anemia, electrolyte abnormality, COPD, viral syndrome Plan for screening labs, cxr, viral swabs Differential Diagnosis Differential Diagnoses: The differential diagnosis associated with the presentation includes Admission/Observation not indicated Lab Data [facility] Lab Attestation statement: I reviewed the patient's lab results. as above. 10/02/24 09:11 10/02/24 09:11 Labs: Lab Results 10/02/24 Range/Units 09:11 WBC 9.1 (4.8-10.8) X10*3/uL RBC 4.32 (4.20-5.50) X10*6/uL Hgb 12.5 (12.0-16.0) g/dl Hct 38.3 (37.0-47.0) % MCV 88.7 (80.0-98.0) fL MCH 28.9 (27.0-33.0) pg MCHC 32.6 (31.0-35.0) g/dl RDW 11.9 (11.0-16.0) % Plt Count 433 H (160-400) X10*3/uL MPV 9.5 (9.4-12.3) fL Immature Gran % (Auto) 0.7 H (0.0-0.4) % Neut % (Auto) 60.3 (45-73) % Lymph % (Auto) 30.7 (20-40) % Newton % (Auto) 4.7 (2-11) % Eos % (Auto) 3.0 (0-4) % Baso % (Auto) 0.6 (0-2) % Lymph # (Auto) 2.8 (1.2-4.9) X10*3/uL Newton # (Auto) 0.4 (0.1-1.2) X10*3/uL Eos # (Auto) 0.3 (0.0-0.4) X10*3/uL Baso # (Auto) 0.1 (0.0-0.2) X10*3/uL Abs Immat Gran (auto) 0.06 H (0.00-0.03) X10*3/uL Absolute Neuts (auto) 5.5 (2.0-8.3) x10*3/uL Absolute Nucleated RBC 0.000 (0.0-0.012) X10*3/uL Nucleated RBC % (auto) 0.0 (0.0-0.2) /100WBC Sodium 141 (135-145) mmol/L Potassium 3.6 (3.3-5.1) mmol/L Chloride 108 (96-108) mmol/L Carbon Dioxide 25 (22-29) mmol/L Anion Gap 12 (12-20) BUN 9 (9-16) mg/dL Creatinine 0.62 (0.5-1.4) mg/dL Estim Creat Clear Calc 132.1 Estimated GFR > 60 Random Glucose 62 (60-115) mg/dL Calcium 9.2 (8.4-10.2) mg/dL Magnesium 2.1 (1.6-2.6) mg/dL Total Bilirubin 0.3 (0.0-1.0) mg/dL AST 19 (5-31) U/L ALT 21 (0-31) U/L Alkaline Phosphatase 85 (39-117) U/L Total Protein 6.4 L (6.5-8.0) g/dL Albumin 3.5 (3.5-5.0) g/dL Lipase 8 (8-78) U/L Beta HCG, Quant < 2 mIU/mL Influenza Type A (PCR) NEGATIVE (Negative) Influenza Type B (PCR) NEGATIVE (Negative) RSV RNA Qual (PCR) NEGATIVE (Negative) SARS-CoV-2 RNA (RT-PCR) NEGATIVE (Negative) Independent Interpretation I performed an independent interpretation of an: Plain X-Ray Interpretation: CXR without infiltrate or consolidation Radiology Impression Discussion of test interpretation with radiology: I have reviewed the radiologist's reading. Radiologist Impression: Date of Service: 10/02/24 Procedure(s): XR chest 2V Accession Number(s): [id number] cc: Physician,Unknown ; Marie Mancera~ CLINICAL HISTORY: wheezing 2 view chest x-ray Comparison: None Findings: No consolidation or effusion. Normal size heart. No acute fracture. IMPRESSION: 1. No acute findings. This document has been electronically signed by: Justo Silver MD on 10/02/2024 10:10:31 Independent Historian Clinical information obtained from an independent historian. History obtained from or confirmed by: EMS External Record Review External record reviewed: Inpatient record Chronic Conditions Patient?s care impacted by: Other (COPD) Social Determinants Patient?s care significantly limited by Social Determinants of Health including: Inadequate housing, Low income, Problems related to employment and Other Social Determinant of Health Critical Care Time Critical Care Time Critical Care Time: No Discharge Plan Discharge Clinical Impression: Homelessness Patient Disposition: Home, Self-Care Additional Instructions: Your workup today is reassuring. You were provided with food in the ED. You were provided with a list of homeless shelters and temporary housing locations to call. You need to reach out to them yourself. Return with any new or worsening symptoms. In the case of an emergency call 911. Prescriptions: No Action cetirizine [All Day Allergy (cetirizine)] 10 mg tablet 10 mg PO DAILY PRN (Reason: allergy symptoms) 90 Days Qty: 90 1RF cyclobenzaprine 10 mg tablet 10 mg PO TID PRN (Reason: muscle spasm) 30 Days Qty: 90 3RF montelukast 10 mg tablet 10 mg PO DAILY 30 Days Qty: 30 0RF ziprasidone HCl 60 mg Capsule 60 mg PO BIDWM 30 Days Qty: 60 0RF buspirone 10 mg Tablet 10 mg PO DAILY 30 Days Qty: 30 0RF atorvastatin 10 mg tablet 10 mg PO BEDTIME 30 Days Qty: 30 0RF albuterol sulfate [Ventolin HFA] 90 mcg/actuation HFA aerosol inhaler 2 puff PO Q4H PRN (Reason: bronchospasm) 30 Days Qty: 8.5 0RF fluticasone propion-salmeterol [Advair HFA] 115-21 mcg/actuation HFA aerosol inhaler 2 puff inhalation BID 30 Days Qty: 12 0RF nystatin 100,000 unit/gram powder 1 appl topical TID Qty: 30 0RF metronidazole 500 mg tablet 500 mg PO BID 7 Days Qty: 14 0RF meclizine 25 mg tablet 25 mg PO DAILY PRN (Reason: for motion sickness) Qty: 90 2RF fluticasone propionate [Flonase Allergy Relief] 50 mcg/actuation spray,suspension 1 spray intranasal DAILY 30 Days Qty: 16 5RF Rx Instructions: administer into each nostril umeclidinium 62.5 mcg/actuation blister with device 1 inh INHALATION BEDTIME 30 Days Qty: 30 6RF cephalexin 500 mg capsule 500 mg PO Q8H 7 Days Qty: 21 0RF nystatin 100,000 unit/gram powder 1 appl topical BID Qty: 60 0RF Rx Instructions: Apply to affected areas as directed metronidazole 500 mg tablet 500 mg PO Q8H 7 Days Qty: 21 0RF nystatin 100,000 unit/gram powder 1 appl topical QID 14 Days Qty: 60 1RF Print Language: Burundian
[2024-10-02 09:16] LABS: MANUAL DIFF FLAG NO
[2024-10-02 09:20] LABS: Basophils Absolute Auto 0.1 X10*3/uL (0.0-0.2); Basophils Percent Auto 0.6 % (0-2); Eosinophils Absolute Auto 0.3 X10*3/uL (0.0-0.4); Hematocrit 38.3 % (37.0-47.0); Hemoglobin 12.5 g/dl (12.0-16.0); Imm Gran Abs Auto 0.06 X10*3/uL (0.00-0.03); Imm Gran Pct Auto 0.7 % (0.0-0.4); Lymphocytes Absolute Auto 2.8 X10*3/uL (1.2-4.9); Lymphocytes Percent Auto 30.7 % (20-40); Mean Corpuscular HGB Conc 32.6 g/dl (31.0-35.0); Mean Corpuscular Hemoglobin 28.9 pg (27.0-33.0); Mean Corpuscular Volume 88.7 fL (80.0-98.0); Mean Platelet Volume 9.5 fL (9.4-12.3); Monocytes Absolute Auto 0.4 X10*3/uL (0.1-1.2); Monocytes Percent Auto 4.7 % (2-11); Neutrophils Absolute Auto 5.5 x10*3/uL (2.0-8.3); Neutrophils Percent Auto 60.3 % (45-73); Platelet Count 433 X10*3/uL (160-400); Red Blood Count 4.32 X10*6/uL (4.20-5.50); Red Cell Distribution Width 11.9 % (11.0-16.0); White Blood Count 9.1 X10*3/uL (4.8-10.8)
[2024-10-02 09:51] LABS: Alanine Aminotransferase 21 U/L (0-31); Albumin Level 3.5 g/dL (3.5-5.0); Alkaline Phosphatase 85 U/L (39-117); Anion Gap 12 (12-20); Aspartate Amino Transferase 19 U/L (5-31); Bilirubin Total 0.3 mg/dL (0.0-1.0); Blood Urea Nitrogen 9 mg/dL (9-16); Calcium 9.2 mg/dL (8.4-10.2); Carbon Dioxide 25 mmol/L (22-29); Chloride 108 mmol/L (96-108); Creatinine Clr Calc Pharmacy 132.1; Estimated Glomerular Filt Rate > 60; Glucose Random 62 mg/dL (60-115); Lipase 8 U/L (8-78); Magnesium 2.1 mg/dL (1.6-2.6); Potassium 3.6 mmol/L (3.3-5.1); Sodium 141 mmol/L (135-145); Total Protein 6.4 g/dL (6.5-8.0)
[2024-10-02 09:58] LABS: Influenza A PCR NEGATIVE (Negative); Influenza B PCR NEGATIVE (Negative); Resp Syncy Virus RNA Qual PCR NEGATIVE (Negative); SARS COV2 PCR INHOUSE NEGATIVE (Negative)
[2024-10-02 10:11] VITALS: BP 131/73; PULSE 73; TEMP 36.6; O2SAT 96
[2024-10-02 10:52] LABS: HCG Quantitative < 2 mIU/mL
[2024-10-02 11:26] VITALS: BP 131/73; PULSE 73; RESP 16; TEMP 36.6; O2SAT 96
== END 2024-10-02 11:35 | disposition home or self-care (01) ==
PROVIDERS: Physician Assistant Medical; Emergency Provider Emergency Medicine
DX: R06.2 Wheezing (principal); R11.2 Nausea with vomiting, unspecified; Z59.00 Homelessness unspecified; F17.210 Nicotine dependence, cigarettes, uncomplicated; Z03.818 Encounter for observation for suspected exposure to other biological agents ruled out; J44.9 Chronic obstructive pulmonary disease, unspecified
CPT/HCPCS: 0241U; 71046; 80053; 83690; 83735; 84702; 85025; 99284

== ENCOUNTER → 2024-10-02 08:58 | Outpatient (BNV) | payer OTHER, SELFPAY | PROVIDERS: Emergency Provider Emergency Medicine; Visit Provider Radiology Diagnostic Radiology | DX: R06.2 Wheezing (principal) | CPT/HCPCS: 71046 ==

== ENCOUNTER 2024-10-02 22:52 | Emergency (ER) | payer OTHER, SELFPAY ==
[2024-10-02 22:59] VITALS: BP 144/86; PULSE 101; O2SAT 99
[2024-10-02 23:02] VITALS: BP 128/78; PULSE 90; RESP 15; TEMP 36.8; O2SAT 97; BMI 37.5
[2024-10-02 23:04] VITALS: BP 128/78; PULSE 90; RESP 15; TEMP 36.8; O2SAT 97
--- NOTE | 2024-10-02 23:04 | ED_ITS ---
HPI - General Adult General Chief complaint: General Medical Stated complaint: sob , hx COPD Time Seen by Provider: 10/02/24 22:55 Source: patient and EMS Mode of arrival: EMS Limitations: no limitations History of Present Illness ED Provider: Dr. 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 Patient requesting a few albuterol puffs. Of note, patient was seen here earlier today, complaining of feeling a bit wheezy and also stating that she has not been eating, patient is homeless. At this time, patient states that she has no chest pain, very mild shortness of breath. Denies fever chills Related Data Previous Rx's ?Medication ?Instructions ?Recorded fluticasone propionate 50 1 spray intranasal DAILY 30 days 04/27/24 mcg/actuation nasal #16 grams spray,suspension (Flonase Allergy Relief) meclizine 25 mg tablet 25 mg PO DAILY PRN for motion 04/27/24 sickness #90 tabs umeclidinium 62.5 mcg/actuation 1 inh inhalation BEDTIME 30 days 04/27/24 blister powder for inhalation #30 ea cetirizine 10 mg tablet (All Day 10 mg PO DAILY PRN allergy 06/02/24 Allergy (cetirizine)) symptoms 90 days #90 tabs cyclobenzaprine 10 mg tablet 10 mg PO TID PRN muscle spasm 30 06/02/24 days #90 tabs albuterol sulfate 90 mcg/actuation 2 puff PO Q4H PRN bronchospasm 30 08/18/24 aerosol inhaler (Ventolin HFA) days #8.5 grams atorvastatin 10 mg tablet 10 mg PO BEDTIME 30 days #30 tabs 08/18/24 buspirone 10 mg tablet 10 mg PO DAILY 30 days #30 tabs 08/18/24 fluticasone propionate 115 2 puff inhalation BID 30 days #12 08/18/24 mcg-salmeterol 21 mcg/actuation grams HFA inhaler (Advair HFA) ziprasidone HCl 60 mg capsule 60 mg PO BIDWM 30 days #60 caps 08/18/24 montelukast 10 mg tablet 10 mg PO DAILY 30 days #30 tabs 09/14/24 cephalexin 500 mg capsule 500 mg PO Q8H 7 days #21 caps 09/15/24 metronidazole 500 mg tablet 500 mg PO Q8H 7 days #21 tabs 09/24/24 nystatin 100,000 unit/gram topical 1 appl topical BID #60 grams 09/24/24 powder nystatin 100,000 unit/gram topical 1 appl topical QID 14 days #60 09/24/24 powder grams metronidazole 500 mg tablet 500 mg PO BID 7 days #14 tabs 10/01/24 nystatin 100,000 unit/gram topical 1 appl topical TID #30 grams 10/01/24 powder albuterol sulfate 90 mcg/actuation 2 puff inhalation Q4-6H PRN 10/02/24 aerosol inhaler shortness of breath or wheezing #8.5 grams prednisone 50 mg tablet 50 mg PO DAILY #4 tabs 10/02/24 Allergies Allergy/AdvReac Type Severity Reaction Status Date / Time animal dander [PET DANDER] Allergy Unknown Itching Verified 10/02/24 23:03 bee pollen [BEE STINGS] Allergy Unknown Swelling Verified 10/02/24 23:03 house dust Allergy Unknown Unknown Verified 10/02/24 23:03 shellfish derived Allergy Unknown Swelling Verified 10/02/24 23:03 [SHELLFISH DERIVED] Seasonal Allergies Allergy Itching Verified 10/02/24 23:03 Review of Systems Review of Systems: Constitutional : No Weight loss, No Fever, No Chills, No Night Sweats, No Fatigue, No Malaise ENT/Mouth : No Hearing loss, No Ear Pain, No Nasal Congestion, No Sinus Pain, No Hoarseness, No sore throat, No Rhinorrhea, No Swallowing Difficulty Eyes: No Eye Pain, No Swelling, No Redness, No Foreign Body, No Discharge, No Vision Changes Cardiovascular : No Chest Pain, No SOB, No Dyspnea on Exertion, No Orthopnea, No Edema, No Palpitations Respiratory : No Cough, No Sputum, complaining of mild Wheezing, No Smoke Exposure, No Dyspnea Gastrointestinal : No Nausea, No Vomiting, No Diarrhea, No Constipation, No abdominal Pain, No Hematochezia, No Melena Genitourinary : no irregular bleeding, No Dysuria, No Urinary Frequency, No Hematuria, No Urinary Incontinence, No Urgency, No Flank Pain, No Urinary Flow Changes, No Hesitancy Musculoskeletal : No joint pain, No Myalgias, No Joint Swelling Skin : No Skin Lesions, No rash Neuro : No Weakness, No Numbness, No Paresthesias, No Loss of Consciousness, No Dizziness, No Headache Psych : No Anxiety/Panic, No Depression, No SI/HI/AH/VH, complaining of homelessness Heme/Lymph: No Bruising, No Bleeding,No Lymphadenopathy Endocrine : No Polyuria, No Polydipsia, No Temperature Intolerance [facility] Past Medical History Medical History Suicidal ideation Bipolar disorder Severe asthma with allergic rhinitis Allergic rhinitis Vertigo Surgical History No pertinent past surgical history Family History Family History Father Lung cancer CVD (cardiovascular disease) Mother Past heart attack Diabetes Emphysema lung CVD (cardiovascular disease) Family/Other FH: mental illness Maternal Grandmother No problems noted. Paternal Grandmother No problems noted. Social History Social History Household Members: Significant Other Housing: Apartment Do you presently have visiting nurse or other home services: No Unable to assess alcohol history related to: Refusing to respond Alcohol intake: current Alcohol intake frequency: former alcohol drinker Alcohol type: beer and hard liquor Comment: close observations at night Patient Tobacco Use Status: Refuse Tobacco use screen Tobacco use type: Cigarette Cigarette Packs Per Day: 1.5 Cigarettes Per Day: 30.0 Years Smoked: 19 e-Cigarette/Vaping Use: Never Used Second Hand Smoke Exposure: No Substance Use Type: Crack/Cocaine, Heroin and Marijuana service: No Current occupational status: unemployed Sexual orientation: Straight/Heterosexual Cognitive needs: No Hearing needs: No Vision needs: No Physical Exam ED Vital Signs: Vital Signs - 24 hr 10/02/24 23:02 Temperature 98.2 F Pulse Rate 90 Respiratory Rate 15 Blood Pressure 128/78 Pulse Oximetry 97 Oxygen Delivery Method Room Air BMI result Body Mass Index 37.5 Const Other: Appearance: Alert. Oriented X3. No acute distress. Eyes: Pupils equal, round and reactive to light. ENT: Pharynx normal. Neck: Normal inspection. Neck supple. No lymph nodes noted. No crepitus CVS: Normal heart rate and rhythm. Pulses normal. Normal S1 and S2 Respiratory: No respiratory distress. Good air movement, very mild occasional wheezing, oxygen saturation 98% on room air after ambulation Abdomen: Soft and nontender. No rigidity. No distention. Skin: Skin warm and dry. Normal skin color. Normal skin turgor. Extremities: No lower extremity edema. No Lacerations. No Rash Neuro: Oriented X 3. No motor deficit. No sensory deficit. Moving all extremities. No slurred speech. CN 2 through 12 grossly intact Psych: calm, cooperative, normal affect Medical Decision Making Medical Decision Making [facility] Narrative: Earlier today, patient had a through evaluation done including lab work, x-rays, serology test, all unremarkable. At this time, patient is completely stable. I do not believe that there would be any benefit from doing blood work or repeating imaging Patient was given p.o. prednisone and albuterol puffs, patient was given the pump to take with her Differential Diagnosis Differential Diagnoses: The differential diagnosis associated with the presentation includes (Viral URI, asthma) Discharge Plan Discharge Clinical Impression: Asthma Patient Disposition: Home, Self-Care Instructions: Asthma (ED) Additional Instructions: Your medications were sent to the [facility] on [facility], [facility] is close tomorrow. Please follow-up with your primary care physician tomorrow. If you have any worsening or new symptoms, please return to the emergency room or call 911 Prescriptions: New albuterol sulfate 90 mcg/actuation HFA aerosol inhaler 2 puff inhalation Q4-6H PRN (Reason: shortness of breath or wheezing) Qty: 8.5 0RF prednisone 50 mg tablet 50 mg PO DAILY Qty: 4 0RF No Action cetirizine [All Day Allergy (cetirizine)] 10 mg tablet 10 mg PO DAILY PRN (Reason: allergy symptoms) 90 Days Qty: 90 1RF cyclobenzaprine 10 mg tablet 10 mg PO TID PRN (Reason: muscle spasm) 30 Days Qty: 90 3RF montelukast 10 mg tablet 10 mg PO DAILY 30 Days Qty: 30 0RF ziprasidone HCl 60 mg Capsule 60 mg PO BIDWM 30 Days Qty: 60 0RF buspirone 10 mg Tablet 10 mg PO DAILY 30 Days Qty: 30 0RF atorvastatin 10 mg tablet 10 mg PO BEDTIME 30 Days Qty: 30 0RF albuterol sulfate [Ventolin HFA] 90 mcg/actuation HFA aerosol inhaler 2 puff PO Q4H PRN (Reason: bronchospasm) 30 Days Qty: 8.5 0RF fluticasone propion-salmeterol [Advair HFA] 115-21 mcg/actuation HFA aerosol inhaler 2 puff inhalation BID 30 Days Qty: 12 0RF nystatin 100,000 unit/gram powder 1 appl topical TID Qty: 30 0RF metronidazole 500 mg tablet 500 mg PO BID 7 Days Qty: 14 0RF meclizine 25 mg tablet 25 mg PO DAILY PRN (Reason: for motion sickness) Qty: 90 2RF fluticasone propionate [Flonase Allergy Relief] 50 mcg/actuation spray,suspension 1 spray intranasal DAILY 30 Days Qty: 16 5RF Rx Instructions: administer into each nostril umeclidinium 62.5 mcg/actuation blister with device 1 inh INHALATION BEDTIME 30 Days Qty: 30 6RF cephalexin 500 mg capsule 500 mg PO Q8H 7 Days Qty: 21 0RF nystatin 100,000 unit/gram powder 1 appl topical BID Qty: 60 0RF Rx Instructions: Apply to affected areas as directed metronidazole 500 mg tablet 500 mg PO Q8H 7 Days Qty: 21 0RF nystatin 100,000 unit/gram powder 1 appl topical QID 14 Days Qty: 60 1RF Print Language: Georgian
[2024-10-02] MEDS: Albuterol Sulfate 90 MCG 8 GM INHALER 2 PUFF INHALE (23:08)
[2024-10-02] MEDS: predniSONE 10 MG TABLET 50 MG PO (23:08)
[2024-10-02 23:39] VITALS: BP 128/78; PULSE 90; RESP 15; TEMP 36.8; O2SAT 97
== END 2024-10-02 23:39 | disposition home or self-care (01) ==
PROVIDERS: Emergency Provider Emergency Medicine
DX: J45.909 Unspecified asthma, uncomplicated (principal); R06.02 Shortness of breath; F17.210 Nicotine dependence, cigarettes, uncomplicated; Z03.818 Encounter for observation for suspected exposure to other biological agents ruled out
CPT/HCPCS: 0241U; 71046; 80053; 83690; 83735; 84702; 85025; 99283; 99284

== ENCOUNTER 2024-10-04 01:52 | Emergency (ER) | payer OTHER, SELFPAY ==
--- NOTE | ~2024-10-04 | XR_ITS ---
CLINICAL HISTORY: pain s p fall 4 view right knee Comparison: None Findings: No fractures or dislocations. No joint effusion. No radiopaque foreign body. IMPRESSION: 1. No acute findings. This document has been electronically signed by: Koko Hernandez MD, PHD on 10/04/2024 03:33:47
[2024-10-04 01:55] VITALS: BP 170/96; PULSE 61; O2SAT 100
[2024-10-04 02:00] VITALS: BP 127/80; PULSE 82; RESP 20; TEMP 36.8; O2SAT 98; BMI 41.0
--- NOTE | 2024-10-04 02:10 | PC.NURSE ---
Once the triage was complete and this RN left the room edit remained at bedside conversing freely with the patient. The EDT made this RN aware of some concerning information that the patient shared and upon arrival to bedside the pt repeated the information. She states that she has been increasingly more depressed and took approx 10 200mg ibuprofen a short while ago although the exact time is unknown. The pt did endorse that the taking of the excessive amount of ibuprofen was in fact an attempt to end her own life due to increased depression.
--- NOTE | 2024-10-04 02:35 | MHC.EDTECH ---
Patient was biba for fall after Patient was change into hospital attire ,Patient stated to this Pct that she took Some Pills to hurt herself today ,This Pct inform RN Ivania ,Patient was then change into green gown and Patient belongings list done ,and locked up in [facility] locker shelf 2 ,Patient was given bath wipes to Clean up .
--- NOTE | 2024-10-04 02:42 | ECG_ITS ---
Test Reason : CHECK QTC Blood Pressure : */* mmHG Vent. Rate : 76 BPM Atrial Rate : 76 BPM P-R Int : 126 ms QRS Dur : 90 ms QT Int : 378 ms P-R-T Axes : 54 54 29 degrees QTcB Int : 425 ms Normal sinus rhythm Normal ECG When compared with ECG of 22-Apr-2024 13:39, No significant change was found Referred By: Wyatt Oleary Electronically Signed By: CÉSAR RASMUSSEN
--- NOTE | 2024-10-04 03:02 | ED.GENADULT ---
HPI - General Adult General Chief complaint: Extremity Injury, Lower Stated complaint: R-leg pain from fall Time Seen by Provider: 10/04/24 01:55 Source: patient, RN notes reviewed and old records reviewed Mode of arrival: ambulatory Limitations: no limitations History of Present Illness ED Provider: Mamta HPI narrative: 39-year-old female with past medical history significant for COPD, schizoaffective disorder, bipolar disorder presenting for evaluation of right knee pain. Patient reports that she fell yesterday morning. She reports that she is in a walking boot due to a left who foot fracture. She lost her balance and fell onto her right side. She is telling me that she believes she broke her right knee. She has been able to walk all day today but has worsening pain to the right knee due to walking Denies any head strike or headache. No other injuries from the fall The patient also reports that she is having increasing depression due to the passing of 1 of her friends She reports she is having suicidal thoughts. She reports that she took? 10 [id number] ibuprofen about 1-2 hours prior to arrival. She reports this was in an attempt to harm herself She denies taking any other substances No other complaints or concerns at this time Related Data Previous Rx's ?Medication ?Instructions ?Recorded atorvastatin 10 mg tablet 10 mg PO BEDTIME 30 days #30 tabs 08/18/24 buspirone 10 mg tablet 10 mg PO DAILY 30 days #30 tabs 08/18/24 fluticasone propionate 115 2 puff inhalation BID 30 days #12 08/18/24 mcg-salmeterol 21 mcg/actuation grams HFA inhaler (Advair HFA) ziprasidone HCl 60 mg capsule 60 mg PO BIDWM 30 days #60 caps 08/18/24 montelukast 10 mg tablet 10 mg PO DAILY 30 days #30 tabs 09/14/24 metronidazole 500 mg tablet 500 mg PO BID 7 days #14 tabs 10/01/24 nystatin 100,000 unit/gram topical 1 appl topical TID #30 grams 10/01/24 powder albuterol sulfate 90 mcg/actuation 2 puff inhalation Q4-6H PRN 10/02/24 aerosol inhaler shortness of breath or wheezing #8.5 grams Allergies Allergy/AdvReac Type Severity Reaction Status Date / Time animal dander [PET DANDER] Allergy Unknown Itching Verified 10/04/24 02:02 bee pollen [BEE STINGS] Allergy Unknown Swelling Verified 10/04/24 02:02 house dust Allergy Unknown Unknown Verified 10/04/24 02:02 shellfish derived Allergy Unknown Swelling Verified 10/04/24 02:02 [SHELLFISH DERIVED] Seasonal Allergies Allergy Itching Verified 10/04/24 02:02 Review of Systems Constitutional: Constitutional: Denies body ache(s), Denies chills, Denies fever(s), Denies frequent falls and Denies headache(s) Eyes: Eyes: Denies blurry vision, Denies floaters and Denies irritation ENT: Denies vertigo, Denies dizziness and Denies headache(s) Cardiovascular: Cardiovascular: Denies chest pain and Denies dyspnea Respiratory: Respiratory: Denies cough and Denies dyspnea Gastrointestinal: Gastrointestinal: Denies abdominal pain, Denies nausea and Denies vomiting Musculoskeletal: Musculoskeletal: Reports arthralgias, Denies joint swelling and Denies limited range of motion Integumentary/Breasts: Skin/Breast: Denies rash Neurologic: Denies vertigo, Denies dizziness, Denies frequent falls and Denies headache(s) Psychiatric: Psychiatric: Denies homicidal ideation and Reports suicidal ideation [facility] Past Medical History Medical History Suicidal ideation Bipolar disorder Severe asthma with allergic rhinitis Allergic rhinitis Vertigo Surgical History No pertinent past surgical history Family History Family History Father Lung cancer CVD (cardiovascular disease) Mother Past heart attack Diabetes Emphysema lung CVD (cardiovascular disease) Family/Other FH: mental illness Maternal Grandmother No problems noted. Paternal Grandmother No problems noted. Social History Social History Household Members: Significant Other Housing: Apartment Do you presently have visiting nurse or other home services: No Unable to assess alcohol history related to: Refusing to respond Alcohol intake: current Alcohol intake frequency: former alcohol drinker Alcohol type: beer and hard liquor Comment: close observations at night Patient Tobacco Use Status: Refuse Tobacco use screen Tobacco use type: Cigarette Cigarette Packs Per Day: 1.5 Cigarettes Per Day: 30.0 Years Smoked: 19 Smoked in Last 30 Days: No e-Cigarette/Vaping Use: Never Used Second Hand Smoke Exposure: No Use of substances other than those prescribed or required for medical reasons: No Substance Use Type: Crack/Cocaine, Heroin and Marijuana Advance Directives: No Advance Directives Information Provided: No Patient : No service: No Current occupational status: unemployed Sexual orientation: Straight/Heterosexual Cognitive needs: No Hearing needs: No Vision needs: No Physical Exam ED Vital Signs: Vital Signs - 24 hr 10/04/24 02:00 10/04/24 08:24 10/04/24 09:52 Temperature 98.2 F 97.6 F 98.0 F Pulse Rate 82 88 105 H Respiratory Rate 20 20 16 Blood Pressure 127/80 145/79 H 139/93 H Pulse Oximetry 98 97 Oxygen Delivery Method Room Air Room Air BMI result Body Mass Index 41.0 Const General: comfortable, no acute distress, alert and awake Nutritional Appearance: well nourished Orientation/consciousness: patient oriented x3 HENMT Head: Yes normocephalic and Yes atraumatic Eyes Eyelids: Yes eyelids normal Conjunctivae: conjunctivae normal Sclerae: sclerae normal Corneas: corneas normal Pupils: Equal, round and reactive pupils present EOM: EOMs intact bilaterally Neck Neck: Yes full ROM Resp Effort & Inspection: normal respiratory effort, able to speak in complete sentences and not labored Skin General skin exam: elasticity normal Neuro General: patient oriented x3 Cranial nerves: Yes Equal, round and reactive pupils present and Yes Bilaterally intact EOM present Cognition (Neuro): normal cognition Extrem Other: There is no deformity to the right knee. No significant joint effusion. Full active and passive range of motion. There is a small abrasion to the right anterior knee. Medical Decision Making Medical Decision Making MDM Narrative: 39-year-old female presents for evaluation of initially right knee pain. She reports falling injury in the knee, plan for x-ray. Clinically, there is no edema, no decrease in range of motion, no joint effusion, low likelihood for fracture. Additionally, the patient reports increased depression with suicidal ideation and attempt with 2 g of ibuprofen. She is not vomiting, denies abdominal pain. Plan for labs, EKG, acetaminophen and salicylate levels. Once medically cleared, the patient will require a care team evaluation In a.m. patient not suicidal not homicidal. Seen by psychiatry. [place] patient is safe. Patient well-appearing has no guns in the house. Wants to leave. Will discharge home. Differential Diagnosis Differential Diagnoses: The differential diagnosis associated with the presentation includes Knee contusion Abrasion Tibial plateau fracture Joint effusion Knee sprain Depression Suicidal ideation NSAID overdose Lab Data 10/04/24 03:03 10/04/24 03:03 Labs: Lab Results 10/04/24 10/04/24 10/04/24 Range/Units 03:03 07:55 11:09 WBC 12.1 H (4.8-10.8) X10*3/uL RBC 3.88 L (4.20-5.50) X10*6/uL Hgb 11.2 L (12.0-16.0) g/dl Hct 35.1 L (37.0-47.0) % MCV 90.5 (80.0-98.0) fL MCH 28.9 (27.0-33.0) pg MCHC 31.9 (31.0-35.0) g/dl RDW 12.2 (11.0-16.0) % Plt Count 440 H (160-400) X10*3/uL MPV 9.2 L (9.4-12.3) fL Immature Gran % (Auto) 1.0 H (0.0-0.4) % Neut % (Auto) 52.1 (45-73) % Lymph % (Auto) 39.6 (20-40) % [place] % (Auto) 5.6 (2-11) % Eos % (Auto) 1.2 (0-4) % Baso % (Auto) 0.5 (0-2) % Lymph # (Auto) 4.8 (1.2-4.9) X10*3/uL [place] # (Auto) 0.7 (0.1-1.2) X10*3/uL Eos # (Auto) 0.2 (0.0-0.4) X10*3/uL Baso # (Auto) 0.1 (0.0-0.2) X10*3/uL Abs Immat Gran (auto) 0.12 H (0.00-0.03) X10*3/uL Absolute Neuts (auto) 6.3 (2.0-8.3) x10*3/uL Absolute Nucleated RBC 0.000 (0.0-0.012) X10*3/uL Nucleated RBC % (auto) 0.0 (0.0-0.2) /100WBC Sodium 143 (135-145) mmol/L Potassium 3.6 (3.3-5.1) mmol/L Chloride 112 H (96-108) mmol/L Carbon Dioxide 24 (22-29) mmol/L Anion Gap 11 L (12-20) BUN 18 H (9-16) mg/dL Creatinine 0.63 (0.5-1.4) mg/dL Estim Creat Clear Calc 131.2 Estimated GFR > 60 Random Glucose 74 (60-115) mg/dL Calcium 8.8 (8.4-10.2) mg/dL Total Bilirubin 0.3 (0.0-1.0) mg/dL AST 19 (5-31) U/L ALT 18 (0-31) U/L Alkaline Phosphatase 72 (39-117) U/L Total Protein 6.0 L (6.5-8.0) g/dL Albumin 3.3 L (3.5-5.0) g/dL Urine Color Yellow Urine Appearance Clear Urine pH 5.5 (5.0-9.0) Ur Specific [place] 1.020 (1.005-1.025) Urine Protein Negative (Neg-Trace) mg/dL Urine Glucose (UA) Negative (Negative) mg/dL Urine Ketones Negative (Negative) mg/dL Urine Blood Negative (Negative) Urine Nitrite Negative (Negative) Ur Leukocyte Esterase Small (1+) H (Negative) Urine Test NEGATIVE (NEGATIVE) Salicylates < 5.0 L (15-30) mg/dL Urine Opiates Screen Not Detected (Not Detect) Ur Buprenorphine Scrn Not Detected (Not Detect) ng/mL Ur Oxycodone Screen Not Detected (Not Detect) ng/mL Urine Methadone Screen Not Detected (Not Detect) ng/mL Urine Fentanyl Screen Not Detected (Not Detect) Acetaminophen < 3 (<30) mcg/mL Ur Barbiturates Screen Not Detected (Not Detect) Ur Phencyclidine Scrn Not Detected (Not Detect) Ur Amphetamines Screen Not Detected (Not Detect) U Benzodiazepines Scrn Not Detected (Not Detect) Urine Cocaine Screen Not Detected (Not Detect) U Marijuana (THC) Screen POSITIVE H (Not Detect) Ethyl Alcohol < 10 mg/dL Discharge Plan Discharge Clinical Impression: Acute pain of right knee, NSAID overdose Patient Disposition: Home, Self-Care Instructions: Arthralgia (ED), Adult Overdose (ED) Prescriptions: No Action montelukast 10 mg tablet 10 mg PO DAILY 30 Days Qty: 30 0RF ziprasidone HCl 60 mg Capsule 60 mg PO BIDWM 30 Days Qty: 60 0RF buspirone 10 mg Tablet 10 mg PO DAILY 30 Days Qty: 30 0RF atorvastatin 10 mg tablet 10 mg PO BEDTIME 30 Days Qty: 30 0RF fluticasone propion-salmeterol [Advair HFA] 115-21 mcg/actuation HFA aerosol inhaler 2 puff inhalation BID 30 Days Qty: 12 0RF nystatin 100,000 unit/gram powder 1 appl topical TID Qty: 30 0RF metronidazole 500 mg tablet 500 mg PO BID 7 Days Qty: 14 0RF albuterol sulfate 90 mcg/actuation HFA aerosol inhaler 2 puff inhalation Q4-6H PRN (Reason: shortness of breath or wheezing) Qty: 8.5 0RF Referrals: Physician,Unknown J [Primary Care Provider] - 10/06/24 Print Language: Gibraltarian
[2024-10-04 03:06] LABS: MANUAL DIFF FLAG NO
--- NOTE | 2024-10-04 03:06 | MHC.EDTECH ---
Patient ekg taken and was read by Provider ,blood drawn and sent to lab ,Patient Ortho boot was removed and search ,Patient moved into Pod .
[2024-10-04 03:08] LABS: Basophils Absolute Auto 0.1 X10*3/uL (0.0-0.2); Basophils Percent Auto 0.5 % (0-2); Eosinophils Absolute Auto 0.2 X10*3/uL (0.0-0.4); Eosinophils Percent Auto 1.2 % (0-4); Hematocrit 35.1 % (37.0-47.0); Hemoglobin 11.2 g/dl (12.0-16.0); Imm Gran Abs Auto 0.12 X10*3/uL (0.00-0.03); Lymphocytes Absolute Auto 4.8 X10*3/uL (1.2-4.9); Lymphocytes Percent Auto 39.6 % (20-40); Mean Corpuscular HGB Conc 31.9 g/dl (31.0-35.0); Mean Corpuscular Hemoglobin 28.9 pg (27.0-33.0); Mean Corpuscular Volume 90.5 fL (80.0-98.0); Mean Platelet Volume 9.2 fL (9.4-12.3); Monocytes Absolute Auto 0.7 X10*3/uL (0.1-1.2); Monocytes Percent Auto 5.6 % (2-11); Neutrophils Absolute Auto 6.3 x10*3/uL (2.0-8.3); Neutrophils Percent Auto 52.1 % (45-73); Platelet Count 440 X10*3/uL (160-400); Red Blood Count 3.88 X10*6/uL (4.20-5.50); Red Cell Distribution Width 12.2 % (11.0-16.0); White Blood Count 12.1 X10*3/uL (4.8-10.8)
--- NOTE | 2024-10-04 03:17 | PC.NURSE ---
Pt changed over into green/crisis attire, left walking boot removed and assessed by EDT and this RN to assess for contrband with none found. Pt was noted to be unsteady on her feet when asked to stand and ambulate. For safety reasons the pt will remain in the main department and is pending the results of her ct. Per VICKIE Oleary there is no need for staff to call poison control at this time
--- NOTE | 2024-10-04 03:18 | MHC.EDTECH ---
Patient was moved to 6 nash instead of Pod .
[2024-10-04 03:34] LABS: Alanine Aminotransferase 18 U/L (0-31); Albumin Level 3.3 g/dL (3.5-5.0); Anion Gap 11 (12-20); Aspartate Amino Transferase 19 U/L (5-31); Bilirubin Total 0.3 mg/dL (0.0-1.0); Blood Urea Nitrogen 18 mg/dL (9-16); Calcium 8.8 mg/dL (8.4-10.2); Carbon Dioxide 24 mmol/L (22-29); Chloride 112 mmol/L (96-108); Creatinine Clr Calc Pharmacy 131.2; Estimated Glomerular Filt Rate > 60; Ethanol < 10 mg/dL; Glucose Random 74 mg/dL (60-115); Potassium 3.6 mmol/L (3.3-5.1); Sodium 143 mmol/L (135-145)
[2024-10-04 03:54] LABS: Alkaline Phosphatase 72 U/L (39-117)
[2024-10-04 03:57] LABS: Acetaminophen LAB < 3 mcg/mL (<30); Salicylate < 5.0 mg/dL (15-30)
[2024-10-04 08:16] LABS: UPreg QC Valid YES; Urine Pregnancy NEGATIVE (NEGATIVE)
[2024-10-04 08:21] LABS: Amphetamine Screen Urine Not Detected (Not Detect); Barbiturates, Urine Not Detected (Not Detect); Benzodiazepines Screen Urine Not Detected (Not Detect); Buprenorphine Scr Not Detected (Not Detect); Cannabinoid Screen Urine POSITIVE (Not Detect); Cocaine Screen Urine Not Detected (Not Detect); Fentanyl, urine Not Detected (Not Detect); Methadone Screen, Urine Not Detected (Not Detect); Opiate Screen Urine Not Detected (Not Detect); Oxycodone Screen Urine Not Detected (Not Detect); Phencyclidine Screen Urine Not Detected (Not Detect)
[2024-10-04 08:24] VITALS: BP 145/79; PULSE 88; RESP 20; TEMP 36.4
--- NOTE | 2024-10-04 09:22 | MHC.CARE ---
Addendum entered by Tonio Philip, MS 10/04/24 11:51: Issued in error, pt will be discharged home Original Note: Pt will be an adult bedsearch.
[2024-10-04 09:52] VITALS: BP 139/93; PULSE 105; RESP 16; TEMP 36.7; O2SAT 97
[2024-10-04 11:32] LABS: Appearance Urine Clear; Color Urine Yellow; Glucose Urine UA Negative (Negative); Leukocyte Esterase Urine Small (1+) (Negative); Nitrite Urine Negative (Negative); PH 5.5 (5.0-9.0); UMIC TRIGGER UACC YES; Urine Blood Negative (Negative); Urine Ketones Negative (Negative); Urine Protein Negative (Neg-Trace)
[2024-10-04 11:43] LABS: Bacteria Urine 1+ (None Seen); Hyaline Casts Urine 0-2 /LPF (0-2); RBC Urine 0-2 /HPF (0-2); UACC Culture Trigger YES; WBC Urine 0-5 /HPF (0-5)
[2024-10-04 11:45] VITALS: BP 139/93; PULSE 105; RESP 16; TEMP 36.7; O2SAT 97
== END 2024-10-04 11:47 | disposition home or self-care (01) ==
PROVIDERS: Physician Assistant; Emergency Provider Internal Medicine
DX: M25.561 Pain in right knee (principal); T39.392A Poisoning by other nonsteroidal anti-inflammatory drugs [NSAID], intentional self-harm, initial encounter; Y92.9 Unspecified place or not applicable; R06.02 Shortness of breath; J44.9 Chronic obstructive pulmonary disease, unspecified; F25.9 Schizoaffective disorder, unspecified; R26.81 Unsteadiness on feet; R94.31 Abnormal electrocardiogram [ECG] [EKG]; F17.210 Nicotine dependence, cigarettes, uncomplicated; F33.1 Major depressive disorder, recurrent, moderate; R45.851 Suicidal ideations; Z79.899 Other long term (current) drug therapy
CPT/HCPCS: 36415; 73564; 80053; 80143; 80179; 80307; 81001; 81025; 85025; 87086; 93005; 99285; S9485

== ENCOUNTER → 2024-10-04 02:40 | Outpatient (BNV) | payer OTHER, SELFPAY | PROVIDERS: Emergency Provider Internal Medicine; Visit Provider General Practice | DX: M25.561 Pain in right knee (principal) | CPT/HCPCS: 73564 ==

== ENCOUNTER → 2024-10-04 02:42 | Outpatient (BNV) | payer OTHER, SELFPAY | PROVIDERS: Emergency Provider Internal Medicine; Visit Provider Internal Medicine | DX: Z13.6 Encounter for screening for cardiovascular disorders (principal) | CPT/HCPCS: 93010 ==

== ENCOUNTER 2024-10-07 12:36 | Emergency (ER) | payer MEDICARE, SELFPAY ==
[2024-10-07 13:01] VITALS: BP 158/98; PULSE 94; O2SAT 95
[2024-10-07 13:02] VITALS: BP 133/82; PULSE 82; RESP 18; TEMP 36.7; O2SAT 99; BMI 32.8
--- NOTE | 2024-10-07 13:13 | ED_ITS ---
HPI - Psych General Chief Complaint: Psychiatric Symptoms Stated Complaint: SI/NO PLAN PER EMS Time Seen by Provider: 10/07/24 12:58 Source: patient, EMS, RN notes reviewed and old records reviewed Mode of arrival: EMS Limitations: other History of Present Illness ED Provider: Gabe Rudolph PA-C HPI Narrative: 39 yo female with history of schizoaffective disorder, bipolar disorder, COPD, seasonal allergies, homelessness who presents to the ER via EMS for evaluation of suicidal ideation. Upon evaluation patient is lethargic, minimally participating in interview. She reports ?I am in crisis. ? She also reported ?a lot of bad things are happening. ? She would not elaborate. She reports she is suicidal but not homicidal. She endorses both visual and auditory hallucinations. She states she is not taking any of her medications, can not stay why. MD complaint: suicidal ideation and feels depressed Onset (ago): unknown History of same: Yes Relieving factors: none Exacerbating factors: none Context: not taking psychiatric medications and significant life stressor Associated psychiatric symptoms: depression and suicidal ideation If self harm: admits thoughts of self harm Related Data Previous Rx's ?Medication ?Instructions ?Recorded atorvastatin 10 mg tablet 10 mg PO BEDTIME 30 days #30 tabs 08/18/24 fluticasone propionate 115 2 puff inhalation BID 30 days #12 08/18/24 mcg-salmeterol 21 mcg/actuation grams HFA inhaler (Advair HFA) ziprasidone HCl 60 mg capsule 60 mg PO BIDWM 30 days #60 caps 08/18/24 montelukast 10 mg tablet 10 mg PO DAILY 30 days #30 tabs 09/14/24 metronidazole 500 mg tablet 500 mg PO BID 7 days #14 tabs 10/01/24 nystatin 100,000 unit/gram topical 1 appl topical TID #30 grams 10/01/24 powder albuterol sulfate 90 mcg/actuation 2 puff inhalation Q4-6H PRN 10/02/24 aerosol inhaler shortness of breath or wheezing #8.5 grams buspirone 10 mg tablet 10 mg PO DAILY 30 days #30 tabs 10/04/24 Allergies Allergy/AdvReac Type Severity Reaction Status Date / Time animal dander [PET DANDER] Allergy Unknown Itching Verified 10/07/24 13:05 bee pollen [BEE STINGS] Allergy Unknown Swelling Verified 10/07/24 13:05 house dust Allergy Unknown Unknown Verified 10/07/24 13:05 shellfish derived Allergy Unknown Swelling Verified 10/07/24 13:05 [SHELLFISH DERIVED] Seasonal Allergies Allergy Itching Verified 10/07/24 13:05 Review of Systems 2 Review of Systems: Yes Unobtainable due to mental status PMFSH Past Medical History Medical History Suicidal ideation Bipolar disorder Severe asthma with allergic rhinitis Allergic rhinitis Vertigo Surgical History No pertinent past surgical history Family History Family History Father Lung cancer CVD (cardiovascular disease) Mother Past heart attack Diabetes Emphysema lung CVD (cardiovascular disease) Family/Other FH: mental illness Maternal Grandmother No problems noted. Paternal Grandmother No problems noted. Social History Social History Household Members: Significant Other Housing: Apartment Do you presently have visiting nurse or other home services: No Unable to assess alcohol history related to: Refusing to respond Alcohol intake: current Alcohol intake frequency: former alcohol drinker Alcohol type: beer and hard liquor Comment: close observations at night Patient Tobacco Use Status: Refuse Tobacco use screen Tobacco use type: Cigarette Cigarette Packs Per Day: 1.5 Cigarettes Per Day: 30.0 Years Smoked: 19 e-Cigarette/Vaping Use: Never Used Second Hand Smoke Exposure: No Substance Use Type: Crack/Cocaine, Heroin and Marijuana Advance Directives: No Advance Directives Information Provided: Yes Do you have a plan to hurt others: No Plan Patient : No service: No Current occupational status: unemployed Sexual orientation: Straight/Heterosexual Cognitive needs: No Hearing needs: No Vision needs: No Physical Exam 2 Vital Signs: Vital Signs: Last Vital Signs Temp 98.9 F 10/07/24 20:40 Pulse 98 10/07/24 20:40 Resp 20 10/07/24 20:40 BP 180/100 H 10/07/24 20:40 Pulse Ox 97 10/07/24 20:40 O2 Del Method Room Air 10/07/24 20:40 BMI result Body Mass Index 32.8 Course Reevaluation(s) Reevaluation #1: Physician observation started at this time. Patient is placed into physician observation pending care team for possible inpatient psychiatric level of care. She is lethargic but arousable. She is medically cleared at this time. Time: 15:52 Reevaluation #2: Attempted to be seen by the care team however she was uncooperative. They will re-evaluate her in 1 hour Time: 17:21 Reevaluation #3: Time: 07:08 Date: 10/08/24 Provider: Tanvi Sen DO Physician observation ended at 708am. Patient has been cleared for discharge by the CARE team. Will follow up as an outpatient. Medical Decision Making Medical Decision Making [facility] Narrative: 39-year-old female with history of schizoaffective disorder, bipolar disorder who is presenting to the ER for the 10th time in 1 month. She is reporting suicidal ideation in the setting of being homeless and not having any of her psych medications. She is a poor historian. She is endorsing suicidal ideation but does not have a plan. She is medicine noncompliant, unclear if she does not have access to her medications or if she just choosing not to take them. She endorses visual hallucinations and auditory hallucinations. She is medically cleared at this time. We are waiting for care team evaluation to see if she needs inpatient psychiatric care at this time, 22:39 on 10/07/2024, care team evaluated the patient. Recommendations: Allow the patient to stay overnight and discharged in the morning. Patient agrees with plan. Differential Diagnosis Differential Diagnoses: The differential diagnosis associated with the presentation includes substance induced mood disorder, acute psychosis, schizophrenia, schizoaffective disorder, PTSD, bipolar disorder, major depression with psychotic features Admission/Observation Consideration of admission/observation: Escalation of care including admission/observation considered Lab Data [facility] Lab Attestation statement: I reviewed the patient's lab results. Mild normocytic anemia 10/07/24 13:34 10/07/24 13:34 Labs: Lab Results 10/07/24 10/07/24 10/07/24 Range/Units 13:34 20:41 20:42 WBC 9.7 (4.8-10.8) X10*3/uL RBC 3.84 L (4.20-5.50) X10*6/uL Hgb 11.0 L (12.0-16.0) g/dl Hct 34.0 L (37.0-47.0) % MCV 88.5 (80.0-98.0) fL MCH 28.6 (27.0-33.0) pg MCHC 32.4 (31.0-35.0) g/dl RDW 12.3 (11.0-16.0) % Plt Count 406 H (160-400) X10*3/uL MPV 9.2 L (9.4-12.3) fL Immature Gran % (Auto) 0.7 H (0.0-0.4) % Neut % (Auto) 61.8 (45-73) % Lymph % (Auto) 28.1 (20-40) % [place] % (Auto) 6.1 (2-11) % Eos % (Auto) 2.6 (0-4) % Baso % (Auto) 0.7 (0-2) % Lymph # (Auto) 2.7 (1.2-4.9) X10*3/uL [place] # (Auto) 0.6 (0.1-1.2) X10*3/uL Eos # (Auto) 0.3 (0.0-0.4) X10*3/uL Baso # (Auto) 0.1 (0.0-0.2) X10*3/uL Abs Immat Gran (auto) 0.07 H (0.00-0.03) X10*3/uL Absolute Neuts (auto) 6.0 (2.0-8.3) x10*3/uL Absolute Nucleated RBC 0.000 (0.0-0.012) X10*3/uL Nucleated RBC % (auto) 0.0 (0.0-0.2) /100WBC Sodium 141 (135-145) mmol/L Potassium 3.6 (3.3-5.1) mmol/L Chloride 111 H (96-108) mmol/L Carbon Dioxide 25 (22-29) mmol/L Anion Gap 9 L (12-20) BUN 13 (9-16) mg/dL Creatinine 0.65 (0.5-1.4) mg/dL Estim Creat Clear Calc 116.9 Estimated GFR > 60 Random Glucose 80 (60-115) mg/dL Calcium 8.9 (8.4-10.2) mg/dL Magnesium 2.0 (1.6-2.6) mg/dL Total Bilirubin 0.6 (0.0-1.0) mg/dL Direct Bilirubin 0.2 (0.0-0.5) mg/dL AST 23 (5-31) U/L ALT 17 (0-31) U/L Alkaline Phosphatase 63 (39-117) U/L Total Protein 6.0 L (6.5-8.0) g/dL Albumin 3.3 L (3.5-5.0) g/dL Urine Color Yellow Urine Appearance Clear Urine pH 6.5 (5.0-9.0) Ur Specific [place] 1.020 (1.005-1.025) Urine Protein Negative (Neg-Trace) mg/dL Urine Glucose (UA) Negative (Negative) mg/dL Urine Ketones Negative (Negative) mg/dL Urine Blood Negative (Negative) Urine Nitrite Negative (Negative) Ur Leukocyte Esterase Small (1+) H (Negative) Urine RBC 0-2 (0-2) /HPF Urine WBC 0-5 (0-5) /HPF Ur Squamous Epith Cells 0-2 (0-2) /HPF Urine Bacteria None Seen (None Seen) Hyaline Casts 0-2 (0-2) /LPF Urine Test NEGATIVE (NEGATIVE) Urine Opiates Screen Not Detected (Not Detect) Ur Buprenorphine Scrn Not Detected (Not Detect) ng/mL Ur Oxycodone Screen Not Detected (Not Detect) ng/mL Urine Methadone Screen Not Detected (Not Detect) ng/mL Urine Fentanyl Screen Not Detected (Not Detect) Ur Barbiturates Screen Not Detected (Not Detect) Ur Phencyclidine Scrn Not Detected (Not Detect) Ur Amphetamines Screen Not Detected (Not Detect) U Benzodiazepines Scrn Not Detected (Not Detect) Urine Cocaine Screen POSITIVE H (Not Detect) U Marijuana (THC) Screen Not Detected (Not Detect) Ethyl Alcohol < 10 mg/dL Independent Historian Clinical information obtained from an independent historian. History obtained from or confirmed by: EMS Discharge Plan Discharge Clinical Impression: Schizoaffective disorder Qualifiers: Schizoaffective disorder type: unspecified Qualified Code(s): F25.9 - Schizoaffective disorder, unspecified Patient Disposition: Home, Self-Care Instructions: Schizoaffective Disorder (ED) Additional Instructions: You were seen in our Emergency Department today for treatment of a behavioral health issue. It is important after your visit that you follow up with either your behavioral health provider or a primary care doctor within 7 days.? If you have trouble finding a therapist you can reach out to [address] [phone] The National Suicide and Crisis Lifeline can be reached 7 days a week 24 hours a day.? Call 988 to speak with someone.? Return for any worsening symptoms or concerns such as thoughts of self harm or harm to others. Please call 911 if you feel your mental health is worsening.? Prescriptions: No Action montelukast 10 mg tablet 10 mg PO DAILY 30 Days Qty: 30 0RF buspirone 10 mg tablet 10 mg PO DAILY 30 Days Qty: 30 0RF ziprasidone HCl 60 mg Capsule 60 mg PO BIDWM 30 Days Qty: 60 0RF atorvastatin 10 mg tablet 10 mg PO BEDTIME 30 Days Qty: 30 0RF fluticasone propion-salmeterol [Advair HFA] 115-21 mcg/actuation HFA aerosol inhaler 2 puff inhalation BID 30 Days Qty: 12 0RF nystatin 100,000 unit/gram powder 1 appl topical TID Qty: 30 0RF metronidazole 500 mg tablet 500 mg PO BID 7 Days Qty: 14 0RF albuterol sulfate 90 mcg/actuation HFA aerosol inhaler 2 puff inhalation Q4-6H PRN (Reason: shortness of breath or wheezing) Qty: 8.5 0RF Referrals: Roxie Guevara MD [Primary Care Provider] - Interventions: [place]-Suicide Risk Severity Scale Last Done: 10/07/24 20:41 Print Language: Kyrgyz
[2024-10-07 13:38] LABS: MANUAL DIFF FLAG NO
[2024-10-07 13:43] LABS: Basophils Absolute Auto 0.1 X10*3/uL (0.0-0.2); Basophils Percent Auto 0.7 % (0-2); Eosinophils Absolute Auto 0.3 X10*3/uL (0.0-0.4); Eosinophils Percent Auto 2.6 % (0-4); Imm Gran Abs Auto 0.07 X10*3/uL (0.00-0.03); Imm Gran Pct Auto 0.7 % (0.0-0.4); Lymphocytes Absolute Auto 2.7 X10*3/uL (1.2-4.9); Lymphocytes Percent Auto 28.1 % (20-40); Mean Corpuscular HGB Conc 32.4 g/dl (31.0-35.0); Mean Corpuscular Hemoglobin 28.6 pg (27.0-33.0); Mean Corpuscular Volume 88.5 fL (80.0-98.0); Mean Platelet Volume 9.2 fL (9.4-12.3); Monocytes Absolute Auto 0.6 X10*3/uL (0.1-1.2); Monocytes Percent Auto 6.1 % (2-11); Neutrophils Percent Auto 61.8 % (45-73); Platelet Count 406 X10*3/uL (160-400); Red Blood Count 3.84 X10*6/uL (4.20-5.50); Red Cell Distribution Width 12.3 % (11.0-16.0); White Blood Count 9.7 X10*3/uL (4.8-10.8)
[2024-10-07 14:06] LABS: Alanine Aminotransferase 17 U/L (0-31); Albumin Level 3.3 g/dL (3.5-5.0); Alkaline Phosphatase 63 U/L (39-117); Anion Gap 9 (12-20); Aspartate Amino Transferase 23 U/L (5-31); Bilirubin Direct 0.2 mg/dL (0.0-0.5); Bilirubin Total 0.6 mg/dL (0.0-1.0); Blood Urea Nitrogen 13 mg/dL (9-16); Calcium 8.9 mg/dL (8.4-10.2); Carbon Dioxide 25 mmol/L (22-29); Chloride 111 mmol/L (96-108); Creatinine Clr Calc Pharmacy 116.9; Estimated Glomerular Filt Rate > 60; Ethanol < 10 mg/dL; Glucose Random 80 mg/dL (60-115); Potassium 3.6 mmol/L (3.3-5.1); Sodium 141 mmol/L (135-145)
--- NOTE | 2024-10-07 19:20 | MHC.CARE ---
The plan is for patient to be a follow up in the morning due to patient not engaging in assessment
[2024-10-07 20:40] VITALS: BP 180/100; PULSE 98; RESP 20; TEMP 37.2; O2SAT 97
[2024-10-07 21:08] LABS: Appearance Urine Clear; Color Urine Yellow; Glucose Urine UA Negative (Negative); Leukocyte Esterase Urine Small (1+) (Negative); Nitrite Urine Negative (Negative); PH 6.5 (5.0-9.0); UMIC TRIGGER UACC YES; UPreg QC Valid YES; Urine Blood Negative (Negative); Urine Ketones Negative (Negative); Urine Pregnancy NEGATIVE (NEGATIVE); Urine Protein Negative (Neg-Trace)
[2024-10-07 21:15] LABS: Bacteria Urine None Seen (None Seen); Hyaline Casts Urine 0-2 /LPF (0-2); RBC Urine 0-2 /HPF (0-2); Squamous Epithelial Cell Urine 0-2 /HPF (0-2); UACC Culture Trigger YES; WBC Urine 0-5 /HPF (0-5)
[2024-10-07 21:19] LABS: Amphetamine Screen Urine Not Detected (Not Detect); Barbiturates, Urine Not Detected (Not Detect); Benzodiazepines Screen Urine Not Detected (Not Detect); Buprenorphine Scr Not Detected (Not Detect); Cannabinoid Screen Urine Not Detected (Not Detect); Cocaine Screen Urine POSITIVE (Not Detect); Fentanyl, urine Not Detected (Not Detect); Methadone Screen, Urine Not Detected (Not Detect); Opiate Screen Urine Not Detected (Not Detect); Oxycodone Screen Urine Not Detected (Not Detect); Phencyclidine Screen Urine Not Detected (Not Detect)
[2024-10-08 07:14] VITALS: BP 142/83; PULSE 92; RESP 16; TEMP 36.6; O2SAT 97
== END 2024-10-08 07:24 | disposition home or self-care (01) ==
PROVIDERS: Physician Assistant; Emergency Provider Emergency Medicine; PCP Internal Medicine
DX: F25.9 Schizoaffective disorder, unspecified (principal); R45.851 Suicidal ideations; Z51.81 Encounter for therapeutic drug level monitoring; Z79.899 Other long term (current) drug therapy
CPT/HCPCS: 36415; 80048; 80076; 80307; 81001; 81025; 83735; 85025; 87086; 99284; S9485

== ENCOUNTER 2024-10-10 02:05 | Emergency (ER) | payer MEDICARE, SELFPAY ==
[2024-10-10 02:13] VITALS: BP 167/95; BP 198/132; PULSE 81; PULSE 91; RESP 16; TEMP 36.2; O2SAT 97; O2SAT 98; BMI 29.9
--- NOTE | 2024-10-10 02:41 | PC.NURSE ---
patient wanted to chnge to rear [facility] area, which was fine considering low census, t/w had discussed medications and compliance and safety w patient. patient cooperative and eating in rear common area.
[2024-10-10 02:45] LABS: Basophils Absolute Auto 0.1 X10*3/uL (0.0-0.2); Basophils Percent Auto 0.5 % (0-2); Eosinophils Absolute Auto 0.3 X10*3/uL (0.0-0.4); Eosinophils Percent Auto 2.6 % (0-4); Hematocrit 38.2 % (37.0-47.0); Hemoglobin 12.3 g/dl (12.0-16.0); Imm Gran Abs Auto 0.09 X10*3/uL (0.00-0.03); Imm Gran Pct Auto 0.7 % (0.0-0.4); Lymphocytes Absolute Auto 2.8 X10*3/uL (1.2-4.9); Lymphocytes Percent Auto 22.5 % (20-40); MANUAL DIFF FLAG NO; Mean Corpuscular HGB Conc 32.2 g/dl (31.0-35.0); Mean Corpuscular Hemoglobin 28.9 pg (27.0-33.0); Mean Corpuscular Volume 89.9 fL (80.0-98.0); Mean Platelet Volume 9.5 fL (9.4-12.3); Monocytes Absolute Auto 0.6 X10*3/uL (0.1-1.2); Monocytes Percent Auto 4.8 % (2-11); Neutrophils Absolute Auto 8.4 x10*3/uL (2.0-8.3); Neutrophils Percent Auto 68.9 % (45-73); Platelet Count 394 X10*3/uL (160-400); Red Blood Count 4.25 X10*6/uL (4.20-5.50); Red Cell Distribution Width 12.5 % (11.0-16.0); White Blood Count 12.3 X10*3/uL (4.8-10.8)
--- NOTE | 2024-10-10 02:45 | PC.NURSE ---
client changed mind and moved back to room 5
[2024-10-10 02:49] LABS: UPreg QC Valid YES; Urine Pregnancy NEGATIVE (NEGATIVE)
[2024-10-10 02:58] LABS: Amphetamine Screen Urine Not Detected (Not Detect); Barbiturates, Urine Not Detected (Not Detect); Benzodiazepines Screen Urine Not Detected (Not Detect); Buprenorphine Scr Not Detected (Not Detect); Cannabinoid Screen Urine POSITIVE (Not Detect); Cocaine Screen Urine POSITIVE (Not Detect); Fentanyl, urine Not Detected (Not Detect); Methadone Screen, Urine Not Detected (Not Detect); Opiate Screen Urine Not Detected (Not Detect); Oxycodone Screen Urine Not Detected (Not Detect); Phencyclidine Screen Urine Not Detected (Not Detect)
--- NOTE | 2024-10-10 02:58 | MHC.EDTECH ---
Patient was biba ,vitals taken ,Patient was exchange consultant by Security and this Pct ,Patient belongings are locked up in Pod locker #5,blood drawn ,urine sample collected all sent to lab ,Patient was given snacks ,and fluids .Patient in her room resting quietly in bed .
[2024-10-10 03:09] LABS: Alanine Aminotransferase 25 U/L (0-31); Albumin Level 3.9 g/dL (3.5-5.0); Alkaline Phosphatase 89 U/L (39-117); Anion Gap 11 (12-20); Aspartate Amino Transferase 25 U/L (5-31); Bilirubin Total 0.3 mg/dL (0.0-1.0); Blood Urea Nitrogen 11 mg/dL (9-16); Calcium 9.1 mg/dL (8.4-10.2); Carbon Dioxide 25 mmol/L (22-29); Chloride 108 mmol/L (96-108); Creatinine Clr Calc Pharmacy 115.4; Estimated Glomerular Filt Rate > 60; Ethanol < 10 mg/dL; Glucose Random 75 mg/dL (60-115); Potassium 3.9 mmol/L (3.3-5.1); Sodium 140 mmol/L (135-145); Total Protein 6.8 g/dL (6.5-8.0)
[2024-10-10 03:11] LABS: Acetaminophen LAB < 3 mcg/mL (<30); Salicylate < 5.0 mg/dL (15-30)
--- NOTE | 2024-10-10 04:14 | ED_ITS ---
HPI - Psych General Chief Complaint: Psychiatric Symptoms Stated Complaint: SI/HEROIN, CRACK COCAINE USE Time Seen by Provider: 10/10/24 03:10 Source: patient Mode of arrival: EMS Limitations: no limitations History of Present Illness ED Provider: HPI Narrative: Patient has schizoaffective disorder homeless been here 8 times in last 2 weeks for nonspecific complaints with different complaints every time to different provider with the nurse she said she has had a vague suicidal ideation to myself patient denied any ideation she said she wanted to sleep till morning and then will go home patient's use heroin and cocaine earlier Related Data Home Medications ?Medication ?Instructions ?Recorded ?Confirmed No Known Home Meds 10/10/24 10/10/24 Allergies Allergy/AdvReac Type Severity Reaction Status Date / Time animal dander [PET DANDER] Allergy Unknown Itching Verified 10/10/24 02:19 bee pollen [BEE STINGS] Allergy Unknown Swelling Verified 10/10/24 02:19 house dust Allergy Unknown Unknown Verified 10/10/24 02:19 shellfish derived Allergy Unknown Swelling Verified 10/10/24 02:19 [SHELLFISH DERIVED] Seasonal Allergies Allergy Itching Verified 10/10/24 02:19 Review of Systems 2 Review of Systems: Yes all other systems are reviewed and are negative [facility] Past Medical History Medical History Suicidal ideation Bipolar disorder Severe asthma with allergic rhinitis Allergic rhinitis Vertigo Surgical History No pertinent past surgical history Family History Family History Father Lung cancer CVD (cardiovascular disease) Mother Past heart attack Diabetes Emphysema lung CVD (cardiovascular disease) Family/Other FH: mental illness Maternal Grandmother No problems noted. Paternal Grandmother No problems noted. Social History Social History Household Members: Significant Other Housing: Apartment Do you presently have visiting nurse or other home services: No Unable to assess alcohol history related to: Refusing to respond Alcohol intake: current Alcohol intake frequency: former alcohol drinker Alcohol type: beer and hard liquor Comment: close observations at night Patient Tobacco Use Status: Refuse Tobacco use screen Tobacco use type: Cigarette Cigarette Packs Per Day: 1.5 Cigarettes Per Day: 30.0 Years Smoked: 19 Smoked in Last 30 Days: No e-Cigarette/Vaping Use: Never Used Second Hand Smoke Exposure: No Use of substances other than those prescribed or required for medical reasons: Yes Substance Use Type: Crack/Cocaine Advance Directives: No Do you have a plan to hurt others: No Plan Patient : No service: No Current occupational status: unemployed Sexual orientation: Straight/Heterosexual Cognitive needs: No Hearing needs: No Vision needs: No Physical Exam 2 Vital Signs: Vital Signs: Last Vital Signs Temp 97.2 F 10/10/24 02:13 Pulse 81 10/10/24 02:13 Resp 16 10/10/24 02:13 BP 167/95 H 10/10/24 02:13 Pulse Ox 97 10/10/24 02:13 O2 Del Method Room Air 10/10/24 02:13 BMI result Body Mass Index 29.9 Appearance: Alert. Oriented X3. No acute distress. Eyes: PERRLA, No Nystagmus ENT: Pharynx normal. Oral Mucosa moist Neck: Normal inspection. Neck supple. CVS: Normal heart rate and rhythm. Pulses normal. Respiratory: No respiratory distress. Equal air entry bilateral, no wheezing/rales/rhonchi Abdomen: Soft and nontender. Bowel sounds are present, no mass palpable, no CVA tenderness Skin: Skin warm and dry. Normal skin color. Normal skin turgor. Extremities: No lower extremity edema. No calf tenderness Psych: Calm and cooperative denies any SI or HI does have a history chronic history of hallucinations Neuro: Oriented X 3. No motor deficit. No sensory deficit.No cerebellar signs , cranial nerves II-XII intact Medications Administered Discontinued Medications Generic Name Dose Route Start Last Admin Trade Name Freq PRN Reason Stop Dose Admin Ibuprofen 600 mg 10/10/24 06:16 10/10/24 07:02 Ibuprofen 600 Mg Tablet PO 10/10/24 06:17 600 mg ONCE ONE Administration Medical Decision Making Medical Decision Making [facility] Narrative: Patient with multiple ED visits multiple evaluations been visited at least 8 visits in last 2 weeks will discharge patient home feels safe to go in a.m. 07:34,I, Dr. Brumfield have take over the care of this patient, I reviewed pertinent blood work and imaging, re-evaluated the patient when appropriate. patient took a shower and states she is ready for discharge, we will be discharged Lab Data MDM Lab Attestation statement: I reviewed the patient's lab results. 10/10/24 02:39 10/10/24 02:39 Labs: Lab Results 10/10/24 Range/Units 02:39 WBC 12.3 H (4.8-10.8) X10*3/uL RBC 4.25 (4.20-5.50) X10*6/uL Hgb 12.3 (12.0-16.0) g/dl Hct 38.2 (37.0-47.0) % MCV 89.9 (80.0-98.0) fL MCH 28.9 (27.0-33.0) pg MCHC 32.2 (31.0-35.0) g/dl RDW 12.5 (11.0-16.0) % Plt Count 394 (160-400) X10*3/uL MPV 9.5 (9.4-12.3) fL Immature Gran % (Auto) 0.7 H (0.0-0.4) % Neut % (Auto) 68.9 (45-73) % Lymph % (Auto) 22.5 (20-40) % [place] % (Auto) 4.8 (2-11) % Eos % (Auto) 2.6 (0-4) % Baso % (Auto) 0.5 (0-2) % Lymph # (Auto) 2.8 (1.2-4.9) X10*3/uL [place] # (Auto) 0.6 (0.1-1.2) X10*3/uL Eos # (Auto) 0.3 (0.0-0.4) X10*3/uL Baso # (Auto) 0.1 (0.0-0.2) X10*3/uL Abs Immat Gran (auto) 0.09 H (0.00-0.03) X10*3/uL Absolute Neuts (auto) 8.4 H (2.0-8.3) x10*3/uL Absolute Nucleated RBC 0.000 (0.0-0.012) X10*3/uL Nucleated RBC % (auto) 0.0 (0.0-0.2) /100WBC Sodium 140 (135-145) mmol/L Potassium 3.9 (3.3-5.1) mmol/L Chloride 108 (96-108) mmol/L Carbon Dioxide 25 (22-29) mmol/L Anion Gap 11 L (12-20) BUN 11 (9-16) mg/dL Creatinine 0.70 (0.5-1.4) mg/dL Estim Creat Clear Calc 115.4 Estimated GFR > 60 Random Glucose 75 (60-115) mg/dL Calcium 9.1 (8.4-10.2) mg/dL Total Bilirubin 0.3 (0.0-1.0) mg/dL AST 25 (5-31) U/L ALT 25 (0-31) U/L Alkaline Phosphatase 89 (39-117) U/L Total Protein 6.8 (6.5-8.0) g/dL Albumin 3.9 (3.5-5.0) g/dL Urine Test NEGATIVE (NEGATIVE) Salicylates < 5.0 L (15-30) mg/dL Urine Opiates Screen Not Detected (Not Detect) Ur Buprenorphine Scrn Not Detected (Not Detect) ng/mL Ur Oxycodone Screen Not Detected (Not Detect) ng/mL Urine Methadone Screen Not Detected (Not Detect) ng/mL Urine Fentanyl Screen Not Detected (Not Detect) Acetaminophen < 3 (<30) mcg/mL Ur Barbiturates Screen Not Detected (Not Detect) Ur Phencyclidine Scrn Not Detected (Not Detect) Ur Amphetamines Screen Not Detected (Not Detect) U Benzodiazepines Scrn Not Detected (Not Detect) Urine Cocaine Screen POSITIVE H (Not Detect) U Marijuana (THC) Screen POSITIVE H (Not Detect) Ethyl Alcohol < 10 mg/dL Discharge Plan Discharge Clinical Impression: Substance abuse Schizoaffective disorder Qualifiers: Schizoaffective disorder type: unspecified Qualified Code(s): F25.9 - Schizoaffective disorder, unspecified Patient Disposition: Still a Patient Instructions: Schizoaffective Disorder (ED), Polysubstance Use Disorder (ED) Additional Instructions: Continue take your medications and follow up with your therapist Prescriptions: No Action No Known Home Meds Interventions: Pepin-Suicide Risk Severity Scale Last Done: 10/10/24 02:33 Print Language: Wolof
--- NOTE | 2024-10-10 06:21 | PC.NURSE ---
t/w pursued ibuprofen order d/t tech indicating that client reportd menstrual cramps in last 10 minutes, t/w went to present medication and it appeared patient ignored staff, patient shifting in the bed as t/w called clients name and attempted to present medication. med was [facility] and will inform am staff.
--- NOTE | 2024-10-10 06:59 | PC.NURSE ---
ASSUMED CARE FOR THIS PT AT APPROXIMATELY [id number]. LAYING IN BED QUIETLY. NO APPARENT DISTRESS. WILL DC THIS AM PER PROVIDER
[2024-10-10] MEDS: Ibuprofen 600 MG TABLET PO (07:02)
[2024-10-10 07:36] VITALS: BP 142/84; PULSE 78; RESP 16; TEMP 36.8; O2SAT 97
== END 2024-10-10 07:58 | disposition still patient (30) ==
PROVIDERS: Emergency Provider Internal Medicine
DX: F20.89 Other schizophrenia (principal); F31.9 Bipolar disorder, unspecified; F19.10 Other psychoactive substance abuse, uncomplicated; R45.851 Suicidal ideations; F43.10 Post-traumatic stress disorder, unspecified; J45.909 Unspecified asthma, uncomplicated; Z59.00 Homelessness unspecified; F17.210 Nicotine dependence, cigarettes, uncomplicated; Z51.81 Encounter for therapeutic drug level monitoring
CPT/HCPCS: 36415; 80053; 80143; 80179; 80307; 81025; 85025; 99285

== ENCOUNTER 2024-10-11 11:56 | Emergency (ER) | payer MEDICARE, SELFPAY ==
[2024-10-11 12:28] VITALS: BP 139/89; BP 150/78; PULSE 76; PULSE 85; RESP 16; TEMP 36.3; O2SAT 95; O2SAT 97; BMI 37.7
[2024-10-11 12:47] VITALS: BP 151/82; PULSE 74; RESP 16; TEMP 36.3; O2SAT 96
--- NOTE | 2024-10-11 12:58 | PC.NURSE ---
Addendum entered by Saba Quintanilla RN 10/11/24 13:00: Patient presents from the street via EMS. Patient has schizoaffective disorder, homeless with multiple visits for nonspecific complaints with different complaints every time to different provider with vague suicidal ideation. Patient used heroin, cocaine, and eightball prior to arrival. Patient cooperative with care. Vague SI, stating to cut self Respirations even and non-labored. Abdomen soft, non-tender with positive bowel sounds. Positive pedal pulses with no edema. Original Note: PMH: Suicidal ideation Bipolar disorder Severe asthma with allergic rhinitis Allergic rhinitis Vertigo Substance use disorder Opiate use disorder schizoaffective
--- NOTE | 2024-10-11 13:25 | ED.PSYCH ---
HPI - Psych General Chief Complaint: Behavioral Concerns Stated Complaint: PT STS LEG PAIN,FX 4 DAYS AGO PER EMS Time Seen by Provider: 10/11/24 13:25 Source: patient, EMS, RN notes reviewed and old records reviewed Mode of arrival: EMS Limitations: no limitations History of Present Illness ED Provider: Tawny HPI Narrative: Patient is A 39-year-old female with history of bipolar disorder, schizoaffective disorder, PTSD, severe asthma, HLD presenting to the emergency department with complaint of suicidal ideation after using crack and heroin prior to arrival. Reports plan to cut self. Denies homicidal ideation. Denies auditory or visual hallucinations. Denies any physical complaints. MD complaint: suicidal ideation Related Data Allergies Allergy/AdvReac Type Severity Reaction Status Date / Time animal dander [PET DANDER] Allergy Unknown Itching Verified 10/11/24 12:31 bee pollen [BEE STINGS] Allergy Unknown Swelling Verified 10/11/24 12:31 house dust Allergy Unknown Unknown Verified 10/11/24 12:31 shellfish derived Allergy Unknown Swelling Verified 10/11/24 12:31 [SHELLFISH DERIVED] Seasonal Allergies Allergy Itching Verified 10/11/24 12:31 Review of Systems Review of Systems: As per HPI Yes all other systems are reviewed and are negative Constitutional: Constitutional: Reports as per HPI PMFSH Past Medical History Medical History Suicidal ideation Bipolar disorder Severe asthma with allergic rhinitis Allergic rhinitis Vertigo Surgical History No pertinent past surgical history Family History Family History Father Lung cancer CVD (cardiovascular disease) Mother Past heart attack Diabetes Emphysema lung CVD (cardiovascular disease) Family/Other FH: mental illness Maternal Grandmother No problems noted. Paternal Grandmother No problems noted. Social History Social History Household Members: Significant Other Housing: Apartment Do you presently have visiting nurse or other home services: No Unable to assess alcohol history related to: Refusing to respond Alcohol intake: current Alcohol intake frequency: former alcohol drinker Alcohol type: beer and hard liquor Comment: close observations at night Patient Tobacco Use Status: Refuse Tobacco use screen Tobacco use type: Cigarette Cigarette Packs Per Day: 1.5 Cigarettes Per Day: 30.0 Years Smoked: 19 e-Cigarette/Vaping Use: Never Used Second Hand Smoke Exposure: No Substance Use Type: Crack/Cocaine and Opiates Substance Use Frequency: Chronic Longstanding Last Used Substance: Just Prior to Admission Advance Directives: No Advance Directives Information Provided: No service: No Current occupational status: unemployed Sexual orientation: Straight/Heterosexual Cognitive needs: No Hearing needs: No Vision needs: No Physical Exam Vital Signs: Vital Signs: Last Vital Signs Temp 97.3 F 10/11/24 12:47 Pulse 74 10/11/24 12:47 Resp 16 10/11/24 12:47 BP 151/82 H 10/11/24 12:47 Pulse Ox 96 10/11/24 12:47 O2 Del Method Room Air 10/11/24 12:47 BMI result Body Mass Index 37.7 Vital signs have been reviewed and appear to be correct. Blood pressure normal. Heart rate normal. Respiratory rate normal. Temperature normal. Oxygen saturation normal. Const: General: cooperative and no acute distress Orientation/consciousness: oriented to person, oriented to place, oriented to time and patient oriented x3 Limitations: no limitations HEENT: Head: Yes normocephalic and Yes atraumatic Ears: external ears normal General nose exam: Normal external nose present Face and sinus: Yes face symmetric Mouth: oropharynx normal and moist mucous membranes Throat: Yes uvula midline Eyes: Pupils: Equal, round and reactive pupils present Neck: Neck: Yes normal visual inspection and Yes supple Resp: Effort & Inspection: normal respiratory effort and able to speak in complete sentences Auscultation: clear to auscultation bilaterally Cardio: Rate: regular rate Rhythm: regular rhythm Heart sounds: S1 normal heart sound present and S2 normal heart sound present GI: Palpation (GI): Soft to palpation and nontender Auscultation: normoactive bowel sounds : General: Yes no CVA tenderness Back/Spine/Pelvis: Back: no CVA tenderness Skin: General skin exam: elasticity normal and turgor normal Neuro: General: oriented to person, oriented to place, oriented to time, patient oriented x3, moves all extremities, no focal motor deficits and CN's II-XI intact bilaterally Cranial nerves: Yes Equal, round and reactive pupils present Cognition (Neuro): normal cognition Extrem: General: Yes full ROM, Yes no pedal edema and Yes no calf tenderness Psych: Mental Status: mental status grossly normal Affect: Blunted affect present Thought process: Normal thought process present Thought content: Suicidality present, no homicidality, no delusions and no hallucinations Course Course Course Narrative: Michelle Ingram PA-C have accepted care of the patient and signed out pending care team consult and final disposition Reevaluation(s) Reevaluation #1: Speaking with came from the care team, the patient will be discharged. She is sadly is malingering, she has housing insecurity, she has been here frequently within the past few weeks, she is not suicidal, she states she ?has mental illness?. A ride has been provided for her to a [facility]. Time: 20:30 Medical Decision Making Medical Decision Making [facility] Narrative: Patient is A 39-year-old female with history of bipolar disorder, schizoaffective disorder, PTSD, severe asthma, HLD presenting to the emergency department with complaint of suicidal ideation after using crack and heroin prior to arrival. On exam patient is awake, A+Ox3, VS WNL, afebrile, normal neurological exam without focal deficits, physical exam findings as above. Given reported symptoms and physical exam findings, initial differential includes but is not limited to suicidal ideation, bipolar disorder, schizoaffective disorder. Plan for medical clearance then care team evaluation. Labs notable for (specific to DDX) . X-ray/CT notable for . My interpretation is in agreement with the radiologist's interpretation. Low suspicion for/unlikely . *Considered admission if any of the DDX would qualify pt for admission *Consider CC *U/S-considered CT?, other tests considered Lab Data 10/11/24 18:33 10/11/24 18:33 Labs: Lab Results 10/11/24 Range/Units 18:33 WBC 9.4 (4.8-10.8) X10*3/uL RBC 3.81 L (4.20-5.50) X10*6/uL Hgb 11.0 L (12.0-16.0) g/dl Hct 34.0 L (37.0-47.0) % MCV 89.2 (80.0-98.0) fL MCH 28.9 (27.0-33.0) pg MCHC 32.4 (31.0-35.0) g/dl RDW 12.6 (11.0-16.0) % Plt Count 381 (160-400) X10*3/uL MPV 9.5 (9.4-12.3) fL Immature Gran % (Auto) 1.0 H (0.0-0.4) % Neut % (Auto) 56.8 (45-73) % Lymph % (Auto) 32.2 (20-40) % [place] % (Auto) 6.1 (2-11) % Eos % (Auto) 3.4 (0-4) % Baso % (Auto) 0.5 (0-2) % Lymph # (Auto) 3.0 (1.2-4.9) X10*3/uL [place] # (Auto) 0.6 (0.1-1.2) X10*3/uL Eos # (Auto) 0.3 (0.0-0.4) X10*3/uL Baso # (Auto) 0.1 (0.0-0.2) X10*3/uL Abs Immat Gran (auto) 0.09 H (0.00-0.03) X10*3/uL Absolute Neuts (auto) 5.3 (2.0-8.3) x10*3/uL Absolute Nucleated RBC 0.000 (0.0-0.012) X10*3/uL Nucleated RBC % (auto) 0.0 (0.0-0.2) /100WBC Sodium 143 (135-145) mmol/L Potassium 3.5 (3.3-5.1) mmol/L Chloride 111 H (96-108) mmol/L Carbon Dioxide 25 (22-29) mmol/L Anion Gap 11 L (12-20) BUN 14 (9-16) mg/dL Creatinine 0.61 (0.5-1.4) mg/dL Estim Creat Clear Calc 129.2 Estimated GFR > 60 Random Glucose 85 (60-115) mg/dL Calcium 8.8 (8.4-10.2) mg/dL Total Bilirubin 0.5 (0.0-1.0) mg/dL AST 20 (5-31) U/L ALT 17 (0-31) U/L Alkaline Phosphatase 65 (39-117) U/L Total Protein 5.6 L (6.5-8.0) g/dL Albumin 3.3 L (3.5-5.0) g/dL Ethyl Alcohol < 10 mg/dL Influenza Type A (PCR) NEGATIVE (Negative) Influenza Type B (PCR) NEGATIVE (Negative) RSV RNA Qual (PCR) NEGATIVE (Negative) SARS-CoV-2 RNA (RT-PCR) NEGATIVE (Negative) Discharge Plan Discharge Clinical Impression: Psychiatric illness Patient Disposition: Home, Self-Care Additional Instructions: You were seen by the care team, you were cleared. Continue to follow up with your providers who manage your underlying psychiatric illnesses. Print Language: Congolese
[2024-10-11 18:37] LABS: MANUAL DIFF FLAG NO
[2024-10-11 18:48] LABS: Basophils Absolute Auto 0.1 X10*3/uL (0.0-0.2); Basophils Percent Auto 0.5 % (0-2); Eosinophils Absolute Auto 0.3 X10*3/uL (0.0-0.4); Eosinophils Percent Auto 3.4 % (0-4); Imm Gran Abs Auto 0.09 X10*3/uL (0.00-0.03); Lymphocytes Percent Auto 32.2 % (20-40); Mean Corpuscular HGB Conc 32.4 g/dl (31.0-35.0); Mean Corpuscular Hemoglobin 28.9 pg (27.0-33.0); Mean Corpuscular Volume 89.2 fL (80.0-98.0); Mean Platelet Volume 9.5 fL (9.4-12.3); Monocytes Absolute Auto 0.6 X10*3/uL (0.1-1.2); Monocytes Percent Auto 6.1 % (2-11); Neutrophils Absolute Auto 5.3 x10*3/uL (2.0-8.3); Neutrophils Percent Auto 56.8 % (45-73); Platelet Count 381 X10*3/uL (160-400); Red Blood Count 3.81 X10*6/uL (4.20-5.50); Red Cell Distribution Width 12.6 % (11.0-16.0); White Blood Count 9.4 X10*3/uL (4.8-10.8)
[2024-10-11 18:55] LABS: Alanine Aminotransferase 17 U/L (0-31); Albumin Level 3.3 g/dL (3.5-5.0); Alkaline Phosphatase 65 U/L (39-117); Anion Gap 11 (12-20); Aspartate Amino Transferase 20 U/L (5-31); Bilirubin Total 0.5 mg/dL (0.0-1.0); Blood Urea Nitrogen 14 mg/dL (9-16); Calcium 8.8 mg/dL (8.4-10.2); Carbon Dioxide 25 mmol/L (22-29); Chloride 111 mmol/L (96-108); Creatinine Clr Calc Pharmacy 129.2; Estimated Glomerular Filt Rate > 60; Ethanol < 10 mg/dL; Glucose Random 85 mg/dL (60-115); Potassium 3.5 mmol/L (3.3-5.1); Sodium 143 mmol/L (135-145); Total Protein 5.6 g/dL (6.5-8.0)
[2024-10-11 19:14] LABS: Influenza A PCR NEGATIVE (Negative); Influenza B PCR NEGATIVE (Negative); Resp Syncy Virus RNA Qual PCR NEGATIVE (Negative); SARS COV2 PCR INHOUSE NEGATIVE (Negative)
[2024-10-11 20:33] VITALS: BP 142/83; PULSE 95; RESP 16; TEMP 36.5; O2SAT 96
== END 2024-10-11 20:44 | disposition home or self-care (01) ==
PROVIDERS: Registered Nurse Emergency; Emergency Provider Emergency Medicine
DX: F91.9 Conduct disorder, unspecified (principal); F31.9 Bipolar disorder, unspecified; F25.9 Schizoaffective disorder, unspecified; F11.10 Opioid abuse, uncomplicated; R45.851 Suicidal ideations; F14.10 Cocaine abuse, uncomplicated; Z03.818 Encounter for observation for suspected exposure to other biological agents ruled out; Z87.891 Personal history of nicotine dependence; Z79.899 Other long term (current) drug therapy; Z51.81 Encounter for therapeutic drug level monitoring
CPT/HCPCS: 0241U; 80053; 80307; 85025; 99284; S9485

== ENCOUNTER 2024-10-16 04:40 | Emergency (ER) | payer MEDICARE, SELFPAY ==
[2024-10-16] VITALS (10 sets, daily range): BP systolic 136–173; BP diastolic 80–103; PULSE 69–104; RESP 16–22; TEMP 36.4–37.1; O2SAT 90–98; BMI 39.4
--- NOTE | 2024-10-16 04:53 | ECG_ITS ---
Test Reason : poly substance abuse Blood Pressure : */* mmHG Vent. Rate : 97 BPM Atrial Rate : 97 BPM P-R Int : 126 ms QRS Dur : 86 ms QT Int : 358 ms P-R-T Axes : 56 57 21 degrees QTcB Int : 454 ms Normal sinus rhythm Normal ECG When compared with ECG of 04-Oct-2024 02:48, No significant change was found Referred By: Generic ED Physician Electronically Signed By: SREEKANTH MCLEAN MD
--- NOTE | 2024-10-16 05:10 | MHC.EDTECH ---
patient is refusing all orders at this moment for ekg and blood work. RN and provider aware.
--- NOTE | 2024-10-16 05:13 | ED.ALLEREA ---
HPI - Allergic Reaction General Chief complaint: Allergic Reaction Stated complaint: ETOH & Substance usage, AMS Time Seen by Provider: 10/16/24 05:10 Source: patient and EMS Mode of arrival: EMS Limitations: altered mental status History of Present Illness ED Provider: Dr. Lola Sanders HPI narrative: patient comes to the emergency room via ambulance. Initially, patient came in complaining of an allergic reaction. However, as I speak to the patient, patient is speaking very tangentially, seems manic. Patient admits that she has been using heroin and cocaine. Patient is unable to have a normal Coherent conversation. Related Data Allergies Allergy/AdvReac Type Severity Reaction Status Date / Time animal dander [PET DANDER] Allergy Unknown Itching Verified 10/16/24 04:59 bee pollen [BEE STINGS] Allergy Unknown Swelling Verified 10/16/24 04:59 house dust Allergy Unknown Unknown Verified 10/16/24 04:59 shellfish derived Allergy Unknown Swelling Verified 10/16/24 04:59 [SHELLFISH DERIVED] Seasonal Allergies Allergy Itching Verified 10/16/24 04:59 Review of Systems Review of Systems: patient mostly complaining of an allergic reaction. However, patient is not making much sense Yes Other [facility] Past Medical History Medical History Suicidal ideation Bipolar disorder Severe asthma with allergic rhinitis Allergic rhinitis Vertigo Surgical History No pertinent past surgical history Family History Family History Father Lung cancer CVD (cardiovascular disease) Mother Past heart attack Diabetes Emphysema lung CVD (cardiovascular disease) Family/Other FH: mental illness Maternal Grandmother No problems noted. Paternal Grandmother No problems noted. Social History Social History Household Members: Significant Other Housing: Apartment Do you presently have visiting nurse or other home services: No Unable to assess alcohol history related to: Refusing to respond Alcohol intake: current Alcohol intake frequency: former alcohol drinker Alcohol type: beer and hard liquor Comment: close observations at night Patient Tobacco Use Status: Refuse Tobacco use screen Tobacco use type: Cigarette Cigarette Packs Per Day: 1.5 Cigarettes Per Day: 30.0 Years Smoked: 19 Smoked in Last 30 Days: Yes e-Cigarette/Vaping Use: Never Used Second Hand Smoke Exposure: No Use of substances other than those prescribed or required for medical reasons: Yes Substance Use Type: Crack/Cocaine and Heroin Substance Use Frequency: Daily Last Used Substance: Just Prior to Admission Any prior treatment program specific to substance use: No Advance Directives: No Advance Directives Information Provided: Yes Patient : No service: No Current occupational status: unemployed Sexual orientation: Straight/Heterosexual Cognitive needs: No Hearing needs: No Vision needs: No Physical Exam ED Vital Signs: Vital Signs - 24 hr 10/16/24 04:56 10/16/24 05:01 10/16/24 05:40 Temperature 97.6 F 97.6 F Pulse Rate 69 69 Respiratory Rate 16 16 22 H Blood Pressure 137/80 137/80 Pulse Oximetry 98 98 Oxygen Delivery Method Room Air Room Air 10/16/24 05:55 10/16/24 06:10 10/16/24 06:25 Temperature Pulse Rate 96 72 76 Respiratory Rate 18 18 16 Blood Pressure Pulse Oximetry 98 92 91 L Oxygen Delivery Method Room Air Room Air Room Air 10/16/24 06:40 10/16/24 08:47 10/16/24 14:43 Temperature 98.8 F Pulse Rate 78 104 H Respiratory Rate 18 18 Blood Pressure 173/103 H Pulse Oximetry 90 L 93 94 Oxygen Delivery Method Room Air Room Air Room Air BMI result Body Mass Index 39.4 Const Other: Appearance: Alert. patient is hyperverbal, not answering questions correctly. Patient's seems to be decompensated. Eyes: Pupils equal, round and reactive to light. ENT: Pharynx normal. Neck: Normal inspection. Neck supple. No lymph nodes noted. No crepitus CVS: Normal heart rate and rhythm. Pulses normal. Normal S1 and S2 Respiratory: No respiratory distress. Breath sounds normal. No Wheezing. No rales Abdomen: Soft and nontender. No rigidity. No distention. Skin: Skin warm and dry. Normal skin color. Normal skin turgor. Extremities: No lower extremity edema. No Lacerations. No Rash Neuro: Cranial nerves 2-12 are grossly intact. Psych: calm, redirectable, hyperverbal, tangential speech Course Course Course Narrative: patient came in complaining of an allergic reaction. However, patient does not have an allergic reaction. Patient has 1 mosquito bite. On physical exam, there are no hives, no angioedema. Normal lung sounds patient has a psychiatric history. I have take care of Crystal multiple times in the past. However, today she seems significantly decompensated or she is under the influence of alcohol and/or drugs. Patient states that she wants to leave. However, this would not be a safe discharge. Patient can not even have a normal conversation care team consult pending Reevaluation(s) Reevaluation #1: Time: 10:30 Date: 10/16/24 Provider: Tanvi Sen, DO Patient in physician observation for psychiatric evaluation.? given IM meds for agitation. No current complaints but she keeps getting up and is intrusive. VS stable.? Pending CARE team evaluation. Will continue to monitor. Reevaluation #2: Time: 15:11 Date: 10/16/24 Provider: Tanvi Sen DO Physician observation ended at 311pm. Patient has been cleared for discharge by the CARE team. Will follow up as an outpatient. back to her baseline Medications Administered Discontinued Medications Generic Name Dose Route Start Last Admin Trade Name Shaheed PRN Reason Stop Dose Admin Diazepam 5 mg 10/16/24 05:32 10/16/24 05:39 Diazepam 10 Mg/2 Ml Cartridge IM 10/16/24 05:33 5 mg STAT STA Administration Diphenhydramine HCl 50 mg 10/16/24 05:32 10/16/24 05:40 Diphenhydramine Hcl 50 Mg/Ml Vial IM 10/16/24 05:33 50 mg ONCE ONE Administration Haloperidol Lactate 5 mg 10/16/24 05:32 10/16/24 05:40 Haloperidol Lactate 5 Mg/Ml Vial IM 10/16/24 05:33 5 mg STAT STA Administration Medical Decision Making Medical Decision Making [facility] Narrative: patient isn't making any sense, trying to leave, patient is manic, decompensated, versus under the influence of drugs. patient gave slapping her face and head patient agree to IM medications. Patient did not want to take any p.o. Medication care team consult pending all of patient's labs pending Physician observation started at 05:40 Differential Diagnosis Differential Diagnoses: The differential diagnosis associated with the presentation includes ( as above) Admission/Observation Consideration of admission/observation: Escalation of care including admission/observation considered ( at this timeit is unclear if patient is under the influence of drugs versus alcohol or she is decompensated.) Lab Data 10/16/24 07:52 10/16/24 07:52 Labs: Lab Results 10/16/24 10/16/24 Range/Units 06:03 07:52 WBC 7.0 (4.8-10.8) X10*3/uL RBC 3.79 L (4.20-5.50) X10*6/uL Hgb 11.1 L (12.0-16.0) g/dl Hct 33.3 L (37.0-47.0) % MCV 87.9 (80.0-98.0) fL MCH 29.3 (27.0-33.0) pg MCHC 33.3 (31.0-35.0) g/dl RDW 12.7 (11.0-16.0) % Plt Count 312 (160-400) X10*3/uL MPV 9.3 L (9.4-12.3) fL Immature Gran % (Auto) 0.7 H (0.0-0.4) % Neut % (Auto) 53.6 (45-73) % Lymph % (Auto) 35.8 (20-40) % [place] % (Auto) 5.6 (2-11) % Eos % (Auto) 3.7 (0-4) % Baso % (Auto) 0.6 (0-2) % Lymph # (Auto) 2.5 (1.2-4.9) X10*3/uL [place] # (Auto) 0.4 (0.1-1.2) X10*3/uL Eos # (Auto) 0.3 (0.0-0.4) X10*3/uL Baso # (Auto) 0.0 (0.0-0.2) X10*3/uL Abs Immat Gran (auto) 0.05 H (0.00-0.03) X10*3/uL Absolute Neuts (auto) 3.7 (2.0-8.3) x10*3/uL Absolute Nucleated RBC 0.000 (0.0-0.012) X10*3/uL Nucleated RBC % (auto) 0.0 (0.0-0.2) /100WBC Sodium 142 (135-145) mmol/L Potassium 3.3 (3.3-5.1) mmol/L Chloride 110 H (96-108) mmol/L Carbon Dioxide 25 (22-29) mmol/L Anion Gap 10 L (12-20) BUN 13 (9-16) mg/dL Creatinine 0.59 (0.5-1.4) mg/dL Estim Creat Clear Calc 137.0 Estimated GFR > 60 Random Glucose 86 (60-115) mg/dL Calcium 8.7 (8.4-10.2) mg/dL Total Bilirubin 0.4 (0.0-1.0) mg/dL AST 22 (5-31) U/L ALT 18 (0-31) U/L Alkaline Phosphatase 64 (39-117) U/L Troponin I High Sens < 2.7 (<3.5-17.0) ng/L Total Protein 5.8 L (6.5-8.0) g/dL Albumin 3.5 (3.5-5.0) g/dL Urine Opiates Screen Not Detected (Not Detect) Ur Buprenorphine Scrn Not Detected (Not Detect) ng/mL Ur Oxycodone Screen Not Detected (Not Detect) ng/mL Urine Methadone Screen Not Detected (Not Detect) ng/mL Urine Fentanyl Screen Not Detected (Not Detect) Ur Barbiturates Screen Not Detected (Not Detect) Ur Phencyclidine Scrn Not Detected (Not Detect) Ur Amphetamines Screen Not Detected (Not Detect) U Benzodiazepines Scrn Not Detected (Not Detect) Urine Cocaine Screen Not Detected (Not Detect) U Marijuana (THC) Screen Not Detected (Not Detect) Ethyl Alcohol < 10 mg/dL Critical Care Time Critical Care Time Critical Care Time: Yes Total Critical Care Time: 40 Attestation: I have personally provided critical care time. Time includes review of lab data, radiology results, discussion with consultants, and monitoring for potential decompensation. Intervention performed as documented. Discharge Plan Discharge Clinical Impression: Bipolar disorder Patient Disposition: Home, Self-Care Instructions: Bipolar Disorder (ED) Additional Instructions: You were seen in our Emergency Department today for treatment of a behavioral health issue. It is important after your visit that you follow up with either your behavioral health provider or a primary care doctor within 7 days.? If you have trouble finding a therapist you can reach out to [address] [place] [phone] The National Suicide and Crisis Lifeline can be reached 7 days a week 24 hours a day.? Call 988 to speak with someone.? Return for any worsening symptoms or concerns such as thoughts of self harm or harm to others. Please call 911 if you feel your mental health is worsening.? Print Language: Tunisian
[2024-10-16] MEDS: diazePAM 10 MG/2 ML CARTRIDGE 5 MG IM (05:39)
[2024-10-16] MEDS: Haloperidol Lactate 5 MG/ML VIAL IM (05:40)
[2024-10-16] MEDS: diphenhydrAMINE HCL 50 MG/ML VIAL IM (05:40)
[2024-10-16 06:20] LABS: Amphetamine Screen Urine Not Detected (Not Detect); Barbiturates, Urine Not Detected (Not Detect); Benzodiazepines Screen Urine Not Detected (Not Detect); Buprenorphine Scr Not Detected (Not Detect); Cannabinoid Screen Urine Not Detected (Not Detect); Cocaine Screen Urine Not Detected (Not Detect); Fentanyl, urine Not Detected (Not Detect); Methadone Screen, Urine Not Detected (Not Detect); Opiate Screen Urine Not Detected (Not Detect); Oxycodone Screen Urine Not Detected (Not Detect); Phencyclidine Screen Urine Not Detected (Not Detect)
--- NOTE | 2024-10-16 06:54 | PC.NURSE ---
pt biba from [employer] station. pt uncooperative in answering providers questions. 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 Security called to bed side.
--- NOTE | 2024-10-16 06:55 | PC.NURSE ---
pt offered PO medication, pt refusing to acknowledge offer. Pt advised we would be giving IM medications. Pt agreed but asked to use restroom first. For about 30 minutes pt would not go to bathroom. It took some time to talk pt into using restroom and getting back to her bed. Once in bed pt medicated per JUL in L deltoid. Pt then asked to change into green gown, pt agreed.
--- NOTE | 2024-10-16 06:58 | PC.NURSE ---
Pt unwilling to allow full v/s to be taken. finger probe for 02 placed on pt. Pt moved to 8H and report given to on coming RN. Dr Sanders made aware of 02 dropping to 90% on R/A, per MD no supplemental 02 needed unless sp02 drops under 90% on r/a.
--- NOTE | 2024-10-16 07:27 | MHC.EDTECH ---
patient refused all labs and EKG stated just let me alone , why am I not in my room ? MOE blackman.
[2024-10-16 07:58] LABS: MANUAL DIFF FLAG NO
[2024-10-16 08:04] LABS: Basophils Percent Auto 0.6 % (0-2); Eosinophils Absolute Auto 0.3 X10*3/uL (0.0-0.4); Eosinophils Percent Auto 3.7 % (0-4); Hematocrit 33.3 % (37.0-47.0); Hemoglobin 11.1 g/dl (12.0-16.0); Imm Gran Abs Auto 0.05 X10*3/uL (0.00-0.03); Imm Gran Pct Auto 0.7 % (0.0-0.4); Lymphocytes Absolute Auto 2.5 X10*3/uL (1.2-4.9); Lymphocytes Percent Auto 35.8 % (20-40); Mean Corpuscular HGB Conc 33.3 g/dl (31.0-35.0); Mean Corpuscular Hemoglobin 29.3 pg (27.0-33.0); Mean Corpuscular Volume 87.9 fL (80.0-98.0); Mean Platelet Volume 9.3 fL (9.4-12.3); Monocytes Absolute Auto 0.4 X10*3/uL (0.1-1.2); Monocytes Percent Auto 5.6 % (2-11); Neutrophils Absolute Auto 3.7 x10*3/uL (2.0-8.3); Neutrophils Percent Auto 53.6 % (45-73); Platelet Count 312 X10*3/uL (160-400); Red Blood Count 3.79 X10*6/uL (4.20-5.50); Red Cell Distribution Width 12.7 % (11.0-16.0)
[2024-10-16 08:10] LABS: Ethanol < 10 mg/dL
[2024-10-16 08:13] LABS: Alanine Aminotransferase 18 U/L (0-31); Albumin Level 3.5 g/dL (3.5-5.0); Alkaline Phosphatase 64 U/L (39-117); Anion Gap 10 (12-20); Aspartate Amino Transferase 22 U/L (5-31); Bilirubin Total 0.4 mg/dL (0.0-1.0); Blood Urea Nitrogen 13 mg/dL (9-16); Calcium 8.7 mg/dL (8.4-10.2); Carbon Dioxide 25 mmol/L (22-29); Chloride 110 mmol/L (96-108); Estimated Glomerular Filt Rate > 60; Glucose Random 86 mg/dL (60-115); Potassium 3.3 mmol/L (3.3-5.1); Sodium 142 mmol/L (135-145); Total Protein 5.8 g/dL (6.5-8.0)
[2024-10-16 08:32] LABS: Troponin-I High Sensitivity < 2.7 ng/L (<3.5-17.0)
== END 2024-10-16 15:23 | disposition home or self-care (01) ==
PROVIDERS: Emergency Provider Emergency Medicine
DX: F31.9 Bipolar disorder, unspecified (principal); F17.210 Nicotine dependence, cigarettes, uncomplicated; F25.9 Schizoaffective disorder, unspecified; F43.10 Post-traumatic stress disorder, unspecified
CPT/HCPCS: 36415; 80053; 80307; 84484; 85025; 93005; 96372; 99285; J1200; J1630; J3360; S9485

== ENCOUNTER → 2024-10-16 04:53 | Outpatient (BNV) | payer MEDICARE, SELFPAY | PROVIDERS: Emergency Provider Emergency Medicine; Visit Provider Internal Medicine Cardiovascular Disease | DX: F19.20 Other psychoactive substance dependence, uncomplicated (principal) | CPT/HCPCS: 93010 ==

== ENCOUNTER 2024-10-23 13:20 | Inpatient (IN) | payer MEDICARE, SELFPAY ==
--- NOTE | 2024-10-23 13:27 | ED_ITS ---
HPI - Psych General Chief Complaint: Psychiatric Symptoms Stated Complaint: CRISIS Time Seen by Provider: 10/23/24 13:27 Source: EMS Mode of arrival: EMS Limitations: other (psychiatric decompensation) History of Present Illness ED Provider: HPI Narrative: 39-year-old woman with history of psychiatric issues such as schizoaffective disorder, bipolar disorder, brought in by her niece works out in the community, she states she has not seen her on in the past 2 months and she has surface today, really decompensated, rambling, agitated, she was in the emergency department extremely decompensated, she is agitated, cursing, screaming at her knees, niece states she is not known to use drugs occasional alcohol use, this really no ability for verbal decompensation with the patient at this time. Related Data Home Medications ?Medication ?Instructions ?Recorded ?Confirmed albuterol sulfate 90 mcg/actuation 2 puff inhalation Q 4-6H PRN 10/24/24 10/24/24 aerosol inhaler Shortness Of Breath Or Wheez ing Allergies Allergy/AdvReac Type Severity Reaction Status Date / Time animal dander (PET DANDER) Allergy Unknown Itching Verified 10/23/24 13:51 bee pollen (BEE STINGS) Allergy Unknown Swelling Verified 10/23/24 13:51 house dust Allergy Unknown Unknown Verified 10/23/24 13:51 shellfish derived (SHELLFISH Allergy Unknown Swelling Verified 10/23/24 13:51 DERIVED) Seasonal Allergies Allergy Itching Verified 10/23/24 13:51 Review of Systems 2 Constitutional: Constitutional: Reports as per HPI [facility] Past Medical History Medical History Suicidal ideation Bipolar disorder Severe asthma with allergic rhinitis Allergic rhinitis Vertigo Surgical History No pertinent past surgical history Family History Family History Father Lung cancer CVD (cardiovascular disease) Mother Past heart attack Diabetes Emphysema lung CVD (cardiovascular disease) Family/Other FH: mental illness Maternal Grandmother No problems noted. Paternal Grandmother No problems noted. Social History Social History Household Members: Significant Other Housing: Apartment Do you presently have visiting nurse or other home services: No Unable to assess alcohol history related to: Refusing to respond Alcohol intake: current Alcohol intake frequency: former alcohol drinker Alcohol type: beer and hard liquor Comment: close observations at night Patient Tobacco Use Status: Refuse Tobacco use screen Tobacco use type: Cigarette Cigarette Packs Per Day: 1.5 Cigarettes Per Day: 30.0 Years Smoked: 19 e-Cigarette/Vaping Use: Never Used Second Hand Smoke Exposure: No Substance Use Type: Crack/Cocaine and Heroin Advance Directives: No Advance Directives Information Provided: Yes service: No Current occupational status: unemployed Sexual orientation: Straight/Heterosexual Cognitive needs: No Hearing needs: No Vision needs: No Physical Exam 2 Vital Signs: Vital Signs: Last Vital Signs Temp 97.6 F 10/27/24 15:24 Pulse 93 10/27/24 15:24 Resp 20 10/27/24 15:24 BP 141/95 H 10/27/24 15:24 Pulse Ox 99 10/27/24 15:24 O2 Del Method Room Air 10/27/24 15:24 BMI result Body Mass Index 36.2 Const: Other: Disheveled, sitting up on the gurney, pressured speech, inability for verbal deescalation, does not really answer any Questions No facial trauma noted Moving upper and lower extremities symmetrically No obvious stridor, wheezing appreciated Course Reevaluation(s) Reevaluation #1: I, Dr. Brumfield have take over the care of this patient, I reviewed pertinent blood work and imaging, re-evaluated the patient when appropriate. Time: 07:00 Reevaluation #2: Providing p.o. Zyprexa Time: 08:50 Reevaluation #3: Time: 08:03 Date: 10/25/24 Provider: Scout Medina MD Patient in physician observation for psychiatric evaluation.? The patient received intramuscular sedation for agitation early yesterday morning but has been better since then. No acute events reported overnight. No current complaints. VS stable.? Patient is in bed search status. Will continue to monitor. Additional Reevaluation(s): Time: 17:00 Date: 10/26/24 Provider: Scout Medina MD Patient in physician observation for psychiatric evaluation.? No acute events reported overnight. No current complaints. VS stable.? Patient is in bed search status. Will continue to monitor.. Time: 15:16 Date: 10/27/24 Provider: Scout Medina MD Physician observation ended at 15:16. Patient to be admitted as inpatient to psychiatry. The patient was stable overnight last night and throughout the day this morning. Medications Administered Generic Name Dose Route Start Last Admin Trade Name Freq PRN Reason Stop Dose Admin Albuterol Sulfate 2 puff 10/24/24 09:21 10/27/24 12:01 Albuterol Sulfate 90 Mcg 8 Gm Inhaler INHALE 2 puff QID PRN Administration Shortness Of Breath Diphenhydramine HCl 50 mg 10/24/24 19:27 10/27/24 04:21 Diphenhydramine Hcl 25 Mg Capsule PO 50 mg QID PRN Administration Allergy symptoms Ibuprofen 400 mg 10/24/24 23:50 10/27/24 11:12 Ibuprofen 400 Mg Tablet PO 400 mg QID PRN Administration Pain, Moderate(Pain Scale 4-6) Lorazepam 1 mg 10/25/24 16:32 10/26/24 14:58 Lorazepam 1 Mg Tablet PO 1 mg TID PRN Administration severe anxiety/agitation Olanzapine 10 mg 10/25/24 16:30 10/27/24 03:27 Olanzapine Odt 10 Mg Tab.Rapdis TRANSLINGU 10 mg Q4H PRN Administration agitation Discontinued Medications Generic Name Dose Route Start Last Admin Trade Name Freq PRN Reason Stop Dose Admin Diazepam 5 mg 10/23/24 13:29 10/23/24 13:45 Diazepam 10 Mg/2 Ml Cartridge IM 10/23/24 13:30 5 mg STAT STA Administration Diazepam 8 mg 10/24/24 10:26 10/24/24 10:35 Diazepam 2 Mg Tablet PO 10/24/24 10:27 8 mg ONCE ONE Administration Diphenhydramine HCl 50 mg 10/23/24 13:29 10/23/24 13:44 Diphenhydramine Hcl 50 Mg/Ml Vial IM 10/23/24 13:30 50 mg ONCE ONE Administration Haloperidol 5 mg 10/24/24 10:26 10/24/24 10:34 Haloperidol 5 Mg Tablet PO 10/24/24 10:27 5 mg ONCE ONE Administration Haloperidol Lactate 5 mg 10/23/24 13:29 10/23/24 13:44 Haloperidol Lactate 5 Mg/Ml Vial IM 10/23/24 13:30 5 mg STAT STA Administration Ibuprofen 600 mg 10/24/24 16:09 10/24/24 16:12 Ibuprofen 600 Mg Tablet PO 10/24/24 16:10 600 mg ONCE ONE Administration Lorazepam 2 mg 10/25/24 12:34 10/25/24 14:57 Lorazepam 1 Mg Tablet PO 10/25/24 12:35 2 mg ONCE ONE Administration Midazolam HCl 2 mg 10/24/24 03:57 10/24/24 04:37 Midazolam Hcl 2 Mg/2 Ml Vial IM 10/24/24 03:58 2 mg ONCE ONE Administration Olanzapine 10 mg 10/23/24 14:02 10/23/24 14:09 Olanzapine 10 Mg Vial IM 10/23/24 14:03 10 mg ONCE ONE Administration Olanzapine 10 mg 10/24/24 08:50 10/24/24 08:53 Olanzapine 10 Mg Tablet PO 10/24/24 08:51 10 mg ONCE ONE Administration Olanzapine 10 mg 10/25/24 12:34 10/25/24 14:58 Olanzapine Odt 10 Mg Tab.Rapdis TRANSLINGU 10/25/24 12:35 Not Given ONCE ONE Ziprasidone 20 mg 10/24/24 03:55 10/24/24 04:36 Ziprasidone Mesylate 20 Mg Vial IM 10/24/24 03:56 20 mg ONCE ONE Administration Medical Decision Making Medical Decision Making [facility] Narrative: Patient will be sedated and then we will continue to monitor obtain all the additional blood work and urinalysis that is necessary did not feel at this time that she requires imaging of the brain does no obvious trauma, she was seen in emergency department less than 2 weeks ago, anticipating she will be psychiatric admission on the rest there is something medical that comes up when she will need to be admitted Differential Diagnosis Differential Diagnoses: The differential diagnosis associated with the presentation includes Manic episode, substance use disorder, trauma, electrolyte derangements, dehydration Admission/Observation Consideration of admission/observation: Escalation of care including admission/observation considered Lab Data [facility] Lab Attestation statement: I reviewed the patient's lab results. 10/25/24 20:04 10/25/24 20:04 Labs: Lab Results 10/24/24 10/25/24 Range/Units 12:45 20:04 WBC 8.0 (4.8-10.8) X10*3/uL RBC 4.53 (4.20-5.50) X10*6/uL Hgb 13.1 (12.0-16.0) g/dl Hct 39.3 (37.0-47.0) % MCV 86.8 (80.0-98.0) fL MCH 28.9 (27.0-33.0) pg MCHC 33.3 (31.0-35.0) g/dl RDW 12.7 (11.0-16.0) % Plt Count 397 D (160-400) X10*3/uL MPV 9.6 (9.4-12.3) fL Immature Gran % (Auto) 0.4 (0.0-0.4) % Neut % (Auto) 56.9 (45-73) % Lymph % (Auto) 33.1 (20-40) % [place] % (Auto) 5.5 (2-11) % Eos % (Auto) 3.6 (0-4) % Baso % (Auto) 0.5 (0-2) % Lymph # (Auto) 2.7 (1.2-4.9) X10*3/uL [place] # (Auto) 0.4 (0.1-1.2) X10*3/uL Eos # (Auto) 0.3 (0.0-0.4) X10*3/uL Baso # (Auto) 0.0 (0.0-0.2) X10*3/uL Abs Immat Gran (auto) 0.03 (0.00-0.03) X10*3/uL Absolute Neuts (auto) 4.6 (2.0-8.3) x10*3/uL Absolute Nucleated RBC 0.000 (0.0-0.012) X10*3/uL Nucleated RBC % (auto) 0.0 (0.0-0.2) /100WBC Sodium 141 (135-145) mmol/L Potassium 4.1 D (3.3-5.1) mmol/L Chloride 107 (96-108) mmol/L Carbon Dioxide 26 (22-29) mmol/L Anion Gap 12 (12-20) BUN 11 (9-16) mg/dL Creatinine 0.67 (0.5-1.4) mg/dL Estim Creat Clear Calc 124.0 Estimated GFR > 60 Random Glucose 87 (60-115) mg/dL Calcium 9.6 D (8.4-10.2) mg/dL Total Bilirubin 0.5 (0.0-1.0) mg/dL AST 22 (5-31) U/L ALT 17 (0-31) U/L Alkaline Phosphatase 74 (39-117) U/L Total Protein 6.9 (6.5-8.0) g/dL Albumin 4.0 (3.5-5.0) g/dL Urine Color Yellow Urine Appearance Clear Urine pH 6.5 (5.0-9.0) Ur Specific [place] 1.020 (1.005-1.025) Urine Protein Negative (Neg-Trace) mg/dL Urine Glucose (UA) Negative (Negative) mg/dL Urine Ketones Negative (Negative) mg/dL Urine Blood Negative (Negative) Urine Nitrite Negative (Negative) Ur Leukocyte Esterase Small (1+) H (Negative) Urine RBC 0-2 (0-2) /HPF Urine WBC 0-5 (0-5) /HPF Ur Squamous Epith Cells 3-5 (0-2) /HPF Urine Bacteria Trace (None Seen) Hyaline Casts 0-2 (0-2) /LPF Urine Test NEGATIVE (NEGATIVE) Salicylates < 5.0 L (15-30) mg/dL Urine Opiates Screen Not Detected (Not Detect) Ur Buprenorphine Scrn Not Detected (Not Detect) ng/mL Ur Oxycodone Screen Not Detected (Not Detect) ng/mL Urine Methadone Screen Not Detected (Not Detect) ng/mL Urine Fentanyl Screen Not Detected (Not Detect) Acetaminophen < 3 (<30) mcg/mL Ur Barbiturates Screen Not Detected (Not Detect) Ur Phencyclidine Scrn Not Detected (Not Detect) Ur Amphetamines Screen Not Detected (Not Detect) U Benzodiazepines Scrn POSITIVE H (Not Detect) Urine Cocaine Screen Not Detected (Not Detect) U Marijuana (THC) Screen POSITIVE H (Not Detect) Ethyl Alcohol < 10 mg/dL Critical Care Time Critical Care Time Critical Care Time: Yes Total Critical Care Time: 40 Attestation: Time is exclusive of separately billable procedures. Time includes: direct patient care, patient reassessment, coordination of patient care, interpretation of data (laboratory data, pulse oximetry, arterial blood gases and chest xrays), review of patient's medical records, medical consultation and documentation of patient care. Procedures excluded from critical care time: central intravenous line placement and electrocardiography. Discharge Plan Discharge Clinical Impression: Manic episode Patient Disposition: Admitted As Inpatient Interventions: [place]-Suicide Risk Severity Scale Last Done: 10/26/24 18:16 Admission Worksheet (ED) Last Done: 10/25/24 15:06 Discharge Date/Time: 10/27/24 15:17
[2024-10-23 13:29] VITALS: BMI 36.2
[2024-10-23] MEDS: diazePAM 10 MG/2 ML CARTRIDGE 5 MG IM (13:45)
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
[2024-10-23] MEDS: OLANZapine 10 MG VIAL IM (14:09)
--- NOTE | 2024-10-23 15:04 | PC.NURSE ---
pt reports she utilizes [facility], this pharmacy is closed saturdays and sundays. Unable to complete medication reconciliation at this time.
--- NOTE | 2024-10-23 15:25 | MHC.CARE ---
Pt assessed by [facility] crisis in the community earlier today and has determined that Pt is appropriate for IPLOC. Reported concerns consist of decompensatio secondary to medication non-compliance-- smearing cleaning supplies on her face and up her nose, crushing pills into children's cups in the home and then drinking them, sitting in the corner making nonsensical statements and praying and using cigarettes to draw crosses on herself. Pt presented with some verbal aggression and posturing. Admitted to using substances consistently up until a few days ago, unable to identify what. Pt is on a section 12A.
--- NOTE | 2024-10-23 15:27 | MHC.EDTECH ---
Patient refusing vital signs at this time. RN aware
[2024-10-23 15:28] VITALS: RESP 16
--- NOTE | 2024-10-23 15:28 | PC.NURSE ---
pt refusing vital signs/bloodwork. Pt alert, speaking clearly in full sentences, arousable to voice, respirations even and regular. Pt in NAD at this time.
--- NOTE | 2024-10-23 19:05 | MHC.EDTECH ---
pt continues to refuse all care. not allowing techs to uszan vitals, ua sample, or blood draw. rn aware.
--- NOTE | 2024-10-24 03:52 | MHC.EDTECH ---
pt got up to use the bathroom, t/w attempted to obtain ua sample. pt agitated, swearing to self/staff. unable to obtain. rn aware.
--- NOTE | 2024-10-24 03:57 | MHC.EDTECH ---
BELONGINGS IN LOCKER #6. NO BELONGINGS LIST COMPLETED BY [employer].
--- NOTE | 2024-10-24 04:38 | PC.NURSE ---
Addendum entered by Anila Damico 10/24/24 06:15: Pt making homicidal statements towards staff. Original Note: Pt pacing in hallway, saying expletives to staff. Pt went to security door and banged head once on door. Security called to the pod. Pt back and forth from bathroom to room and then began getting aggressive with staff and asking Mother september I . Pt asked by staff multiple times to go back to her room. Pt hitting head into the wall. Pt throwing cup out into hallway and demanding gingerale from staff. Pt medicated per JUL.
[2024-10-24 06:00] VITALS: RESP 16
--- NOTE | 2024-10-24 06:13 | PC.NURSE ---
Pt woke up and noted to be pacing halls. Security to area to assist with patient. Pt uncooperative and agressice
--- NOTE | 2024-10-24 07:56 | PC.NURSE ---
Assumed care of patient at 0645, patient appears to be in no apparent distress this am, sleeping, respirations even and unlabored. Continue plan of care for medical clearance and CARE team tahmina
--- NOTE | 2024-10-24 08:10 | PC.NURSE ---
Pt awake at this time, refusing urines and bloodwork
--- NOTE | 2024-10-24 08:10 | MHC.EDTECH ---
Patient awake and asking to use bathroom. Refusing to provide urine sample at this time.
--- NOTE | 2024-10-24 08:40 | PC.NURSE ---
Pt awake at this time, agitated with staff, swearing, demanding medications but when asked which medications pt is unable to verify. Pt unable to verify which pharmacy she receives her medications from
--- NOTE | 2024-10-24 08:44 | MHC.CARE ---
Pt will be an inpatient bedsearch.
--- NOTE | 2024-10-24 09:00 | PC.NURSE ---
pt pacing, refusing to change clothing despite being soiled with urine
--- NOTE | 2024-10-24 09:18 | PC.NURSE ---
RE: med rec this RN called [facility] pharmacy on [address] to verify medications. Pt has not filled medications since April but does have PRN Albuterol inhaler which was added to the med rec
[2024-10-24] MEDS: Albuterol Sulfate 90 MCG 8 GM INHALER 2 PUFF INHALE ×2 (10:37→23:55)
--- NOTE | 2024-10-24 10:39 | PC.NURSE ---
Pt pacing around BH pod, attempting to put cup through drain in sink, attempted redirection however pt became agitated. Pt did take PO medications to calm down
--- NOTE | 2024-10-24 10:42 | PHA.MEDREC ---
Addendum entered by Melissa White jewels 10/24/24 10:54: Reviwewed Original Note: Pharmacy Consult ? Medication Reconciliation Pharmacy has completed the medication reconciliation. Reviewed med rec done by nursing.
[2024-10-24 12:55] LABS: Appearance Urine Clear; Glucose Urine UA Negative (Negative); PH 6.5 (5.0-9.0); Specific Gravity - Urine 1.020 (1.005-1.025); UMIC TRIGGER UA YES; UPreg QC Valid YES
[2024-10-24 13:21] LABS: Cannabinoid Screen Urine POSITIVE (Not Detect)
[2024-10-24 16:44] VITALS: BP 151/79; PULSE 95; RESP 16; TEMP 36.7; O2SAT 100
--- NOTE | 2024-10-24 16:45 | PC.NURSE ---
Pt calm at this time, ambulating with steady gait around BH pod, offering no complaints to this RN
--- NOTE | 2024-10-24 17:57 | PC.NURSE ---
Addendum entered by Xiomara John 10/24/24 18:54: pt wrote note everyone can suck a cock . then presented it to staff stating this is my last will and testament Original Note: pt making passive aggressive comments to staff and other pts, redirected back to her room
--- NOTE | 2024-10-24 19:33 | PC.NURSE ---
pt walking around unit agitated, stating/yelling she takes allergy medication, benadryl but hasnt gotten any. provider aware. pt medicated per MAR
--- NOTE | 2024-10-24 20:05 | PC.NURSE ---
pt given Benadryl, looked at it and said that isnt Benadryl. pt refused to take. medication wasted in pyxis
--- NOTE | 2024-10-24 21:19 | PC.NURSE ---
pt give snacks and drinks many times so far this shift, pt went to the bathroom multiple times to then flush the food down the toilet. snacks no longer being provided to pt at this time
--- NOTE | 2024-10-25 04:13 | PC.NURSE ---
pt increasingly agitated/restless. has yet to sleep. pt pacing and in/out of room and bathroom all night, talking to self or talking nonsense to staff. redirected countless times. pt stripped her bed, removed pants and socks. pt asked what she had for medication available, this RN informed pt the only med available is benadryl for allergy sx. pt requested to take Benadryl (previously asked for it and then refused to take), that might help me sleep like you want pt very condescending/passive aggressive. pt took meds and then immediate spit them into the sink and said fuck you and your meds . pt redirected back to room. pt sitting in chair in room staring at staff
--- NOTE | 2024-10-25 05:52 | PC.NURSE ---
pt using the bathroom all night, came out of room and said she urinated herself. given clean hospital attire
[2024-10-25 05:53] VITALS: RESP 20
--- NOTE | 2024-10-25 05:53 | MHC.EDTECH ---
Patient has been awake all night, swearing, pacing, talking under her breath, calling staff names, and soiling herself. Patient has not been easily redirectable. Patient refusing vitals and labs at this time.
[2024-10-25] MEDS: Albuterol Sulfate 90 MCG 8 GM INHALER 2 PUFF INHALE ×3 (07:23→19:44)
--- NOTE | 2024-10-25 11:02 | PC.NURSE ---
Received report from Melissa ROSA. Patient is pacing, talking to herself, occasionally swearing, responding to internal stimuli. Section [address] Care ongoing by this RN.
--- NOTE | 2024-10-25 11:25 | PC.NURSE ---
Patient requested and give a cup of nick sammy. Patient immediately took the cup, poured the nick sammy into the toilet, and also put the cup in the toilet and flushed the toilet. Cup removed from toilet.
--- NOTE | 2024-10-25 11:33 | PC.NURSE ---
Patient now went into the shower, fully clothed while this RN was on the phone with [facility] staff member.
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
--- NOTE | 2024-10-25 13:03 | PC.NURSE ---
Patient refused offered PO meds. She laid down in her room briefly, mumbling to herself. When I offered the meds, she yelled and stated go take the meds yourself bitch! go suck a rustam and get out of here! Patient has not slept since arrival, per notes & reports. Patient is now pacing again, randomly approaching nurse's station.
--- NOTE | 2024-10-25 14:00 | MHC.EDTECH ---
pt refused vital signs
--- NOTE | 2024-10-25 14:46 | PC.NURSE ---
Lisandra continues to refuse offered PO medications. Continues pacing, yelling, swearing, passive aggressive. Currently dipping her finger in water and writing swears & derogatory terms on nurse's station windows. This RN politely asked that she stop doing this. Pt whisper/mumbling under her breath while staring at this RN.
--- NOTE | 2024-10-25 14:58 | PC.NURSE ---
Patient medicated with Zyprexa PO, Ativan PO, and Benadryl PO. Medications were scanned, and patient took all meds except Zyprexa and threw it in the trash. Patient took Ativan & Benadryl as ordered.
--- NOTE | 2024-10-25 15:03 | MHC.CARE ---
Call from patient's sister, Bhupinder ([phone]), who reported that she picked up documents at court to start the process of guardianship and Jose Armando's Order and is now looking for assistance. Advised she can speak with social work and psychiatry team after admission to .
--- NOTE | 2024-10-25 17:10 | PC.NURSE ---
Patient requested & given paper and a crayon to color with.
--- NOTE | 2024-10-25 17:33 | PC.NURSE ---
Patient sleeping in her bed at this time. Bedsearch ongoing. Section [address]
[2024-10-25 20:08] LABS: MANUAL DIFF FLAG NO
[2024-10-25 20:09] LABS: Hematocrit 39.3 % (37.0-47.0); Hemoglobin 13.1 g/dl (12.0-16.0); Imm Gran Abs Auto 0.03 X10*3/uL (0.00-0.03); Imm Gran Pct Auto 0.4 % (0.0-0.4); Lymphocytes Absolute Auto 2.7 X10*3/uL (1.2-4.9); Mean Corpuscular HGB Conc 33.3 g/dl (31.0-35.0); Mean Corpuscular Hemoglobin 28.9 pg (27.0-33.0); Mean Corpuscular Volume 86.8 fL (80.0-98.0); NRBC Abs Auto 0.000 X10*3/uL (0.0-0.012); NRBC Pct Auto 0.0 /100WBC (0.0-0.2); Platelet Count 397 X10*3/uL (160-400); Red Blood Count 4.53 X10*6/uL (4.20-5.50); White Blood Count 8.0 X10*3/uL (4.8-10.8)
[2024-10-25 20:25] LABS: Acetaminophen LAB < 3 mcg/mL (<30); Alanine Aminotransferase 17 U/L (0-31); Albumin Level 4.0 g/dL (3.5-5.0); Alkaline Phosphatase 74 U/L (39-117); Anion Gap 12 (12-20); Aspartate Amino Transferase 22 U/L (5-31); Blood Urea Nitrogen 11 mg/dL (9-16); Calcium 9.6 mg/dL (8.4-10.2); Carbon Dioxide 26 mmol/L (22-29); Chloride 107 mmol/L (96-108); Creatinine Clr Calc Pharmacy 124.0; Estimated Glomerular Filt Rate > 60; Potassium 4.1 mmol/L (3.3-5.1); Salicylate < 5.0 mg/dL (15-30); Sodium 141 mmol/L (135-145); Total Protein 6.9 g/dL (6.5-8.0)
[2024-10-25] MEDS: OLANZapine ODT 10 MG TAB.RAPDIS TRANSLINGU (20:53)
--- NOTE | 2024-10-26 | ECG_ITS ---
Test Reason : check for qtc Blood Pressure : */* mmHG Vent. Rate : 87 BPM Atrial Rate : 87 BPM P-R Int : 132 ms QRS Dur : 94 ms QT Int : 370 ms P-R-T Axes : 34 68 26 degrees QTcB Int : 445 ms Normal sinus rhythm Minimal voltage criteria for LVH, may be normal variant ( Hector product ) Borderline ECG When compared with ECG of 16-Oct-2024 13:56, No significant change was found Referred By: Earnest Alexander Electronically Signed By: CÉSAR RASMUSSEN
[2024-10-26] MEDS: Albuterol Sulfate 90 MCG 8 GM INHALER 2 PUFF INHALE ×3 (05:38→20:01)
[2024-10-26 06:00] VITALS: BP 96/81; PULSE 99; RESP 18; TEMP 36.6; O2SAT 98
[2024-10-26] MEDS: OLANZapine ODT 10 MG TAB.RAPDIS TRANSLINGU ×2 (06:19→11:24)
[2024-10-26 08:00] VITALS: BP 96/81; PULSE 99; RESP 18; TEMP 36.6; O2SAT 98
--- NOTE | 2024-10-26 08:29 | PC.NURSE ---
Calm and cooperative, ate well for breakfast. EKG obtained. Patient took shower and sat in common area to color. Denies pain or discomfort.
--- NOTE | 2024-10-26 11:55 | PC.NURSE ---
Patient ambulating on unit remains cooperative. Medicated with inhaler per patient request. patient with watery eyes , stating she has allergies. Medicated per mar. Provided with orange and tea per patient request. Resting in room at this time
--- NOTE | 2024-10-26 14:04 | PC.NURSE ---
Provided with headphones to listen to music. Patient calm and cooperative, occasionally singing along and dancing to music. Ate well for lunch
[2024-10-26 15:33] VITALS: BP 175/95; PULSE 95; RESP 16; TEMP 36.3; O2SAT 100
--- NOTE | 2024-10-26 21:32 | PC.NURSE ---
patient consistently in milieu, many requests for items from staff, seemed to ruminate on not having insurance as if it were a reason for us to dc her.
[2024-10-27] MEDS: Albuterol Sulfate 90 MCG 8 GM INHALER 2 PUFF INHALE ×2 (03:18→12:01)
[2024-10-27] MEDS: OLANZapine ODT 10 MG TAB.RAPDIS TRANSLINGU ×2 (03:27→16:46)
--- NOTE | 2024-10-27 04:22 | PC.NURSE ---
patient has been awake from approximately [id number] asking for various snacks
--- NOTE | 2024-10-27 04:39 | PC.NURSE ---
patient asks when care team will check in with client today to see if she would be discharged
--- NOTE | 2024-10-27 04:49 | PC.NURSE ---
once limits set with client, client retorts with attempts to antagonize staff calling us yoni (like master) repeatedly, inferring she has no choice in beverages, patient was redirected in regards to this, to call us by name, or staff.
--- NOTE | 2024-10-27 04:54 | PC.NURSE ---
patient requests water
--- NOTE | 2024-10-27 05:13 | PC.NURSE ---
patient continues to make attempts to antagonize staff
[2024-10-27 06:00] VITALS: BP 156/93; PULSE 88; RESP 18; TEMP 37.3; O2SAT 99
--- NOTE | 2024-10-27 07:55 | PC.NURSE ---
Assumed care of patient at 0645, patient appears to be in no apparent distress this am, ambulating around BH pod with steady gait, occasionally verbalized self-dialoguing about various topics. Able to have appropriate conversations with peers at this time. Continue plan of care for IPLOC
--- NOTE | 2024-10-27 11:12 | PC.NURSE ---
Pt continues to remain calm and cooperative, speaking with peers in milieu, singing for self soothing
[2024-10-27 15:24] VITALS: BP 141/95; PULSE 93; RESP 20; TEMP 36.4; O2SAT 99
--- NOTE | 2024-10-27 17:41 | PC.ADMIT ---
Lisandra is a 39yr old woman, admitting to today on a 12b for psychosis & tejinder. She was [place] [facility] [place] after her family called EMS to niece?s home. She was manic, exhibiting self harming behaviors and has been medication noncompliant. Her documented psych history includes PTSD, Schizoaffective Disorder, Bipolar Disorder.? Per family, Lisandra has been homeless for the past 4 months since from . She was reportedly found in a park & hadn?t been seen by anyone for two months prior. Lisandra?s behavior was bizarre & religiously preoccupied. She was smearing cleaning supplies on her face and up her nose, crushing pills into children's cups in the home and then drinking them. On arrival to patient is verbally aggressive and uncooperative with admission process. Lisandra doesn't answer questions regarding psych symptoms, but she is clearly preoccupied & responding to internal stimuli. She refused skin check & clothing change management lead. Security came & wanded pt for safety. Lisandra refused toiletry bag (throwing it into hallway), stripped her bed linens & has been sitting in nash/kitchen self-dialoguing, as well as antagonizing staff & peers. Kitchen door closed to keep her away from peers & Lisandra has been accepting of that. PO Zyprexa & Ativan admin, then 40min later requested ?more meds? at which time hydroxyzine & Benadryl were admin. Patient has been placed on 15min safety checks. Lisandra's sister, Bhupinder reports that she picked up documents at court to start the process of guardianship and Jose Armando's Order.
[2024-10-28 07:00] VITALS: BMI 36.1
[2024-10-28 08:00] VITALS: BP 139/97; PULSE 100; TEMP 36.4; O2SAT 100
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
[2024-10-28 09:15] LABS: Alanine Aminotransferase 21 U/L (0-31); Albumin Level 4.1 g/dL (3.5-5.0); Alkaline Phosphatase 77 U/L (39-117); Anion Gap 11 (12-20); Aspartate Amino Transferase 18 U/L (5-31); Blood Urea Nitrogen 18 mg/dL (9-16); Calcium 9.2 mg/dL (8.4-10.2); Carbon Dioxide 24 mmol/L (22-29); Chloride 108 mmol/L (96-108); Cholesterol 169 mg/dL (<200); Creatinine Clr Calc Pharmacy 113.8; Estimated Glomerular Filt Rate > 60; HDL Cholesterol 26 mg/dL (>40); Magnesium 1.9 mg/dL (1.6-2.6); Potassium 4.3 mmol/L (3.3-5.1); Sodium 139 mmol/L (135-145); Total Protein 6.9 g/dL (6.5-8.0); Triglycerides 173 mg/dL (<150)
[2024-10-28 09:19] LABS: Hemoglobin A1C 85.0479 umol/L; Total Hemoglobin (HGBA1C) 3435.0452 umol/L
[2024-10-28 09:41] LABS: Free T4 (Free Thyroxine) 1.03 ng/dL (0.71-1.85); Thyroid Stimulating Hormone 0.93 uIU/mL (0.32-4.0)
[2024-10-28 09:45] LABS: Folate 5.0 ng/mL (> or = 4.0)
[2024-10-28 10:11] LABS: Vitamin B12 279 pg/mL (200-900)
[2024-10-28] MEDS: Albuterol Sulfate 90 MCG 8 GM INHALER 2 PUFF INHALE ×3 (10:49→21:01)
[2024-10-28] MEDS: OLANZapine ODT 10 MG TAB.RAPDIS TRANSLINGU ×2 (10:49→18:16)
[2024-10-28] MEDS: Milk of Magnesia 30 ML ORAL.SUSP PO (14:44)
[2024-10-28 20:00] VITALS: BP 155/78; PULSE 109; TEMP 37.7; O2SAT 100
--- NOTE | 2024-10-29 03:25 | PC.NURSE ---
Late documentation. At approximately 0645 on 10/28/2024, this patient stood in front of the nurse's station, pouring hand lotion over and into her hair, onto her shoulders and chest. She rubbed the lotion through her hair. Approximately 10 minutes later, she requested two new jeremiah because it got weird there for a minute. Patient accepted new jeremiah at that time.
[2024-10-29] MEDS: Albuterol Sulfate 90 MCG 8 GM INHALER 2 PUFF INHALE ×3 (03:44→17:20)
[2024-10-29] MEDS: OLANZapine ODT 10 MG TAB.RAPDIS TRANSLINGU ×2 (04:29→12:54)
--- NOTE | 2024-10-29 10:55 | P.PNPSI_ITS ---
Subjective Subjective Date of Service: 10/29/24 Reason For Visit: Psychosis Subjective Notes: Section 12B Healthcare Proxy: No Guardianship: No Medical Problems Affecting Mental Status: No Interim History: Team reports 24 ED visits since May 2024, [address] [facility], family reports pt was missing for 2 months Prior to this they report 10 years of stability. Pt asks for Methadone-will proceed once mental status is stable. Team report pt has been throwing liquids with some increase in her agitation after midnight. Met with pt in intervals today. Disorganized, tangential, calmer that previously reported and observant, mostly sitting on the floor in the middle of the milieu by the telephone. Accepting medications. Medication Compliance: Yes Side effects from medications: No Attending Groups: No Review of Systems Acute medical concerns: No Medical Review of Systems: unchanged Review of Systems Review of Systems Yes Unobtainable due to mental status Mental Status Exam Mental Status Exam Patient Appearance: Disheveled Patient Orientation: Person and Place Level of Consciousness: Alert Patient Behavior: Talkative and Cooperative Mood Description: Labile Affect Description: Labile Patient Cognition Impaired: Yes Ability to Follow Directions: Fair Speech Pattern: Spontaneous Speech Memory Description: Remote Impaired Hallucinations: None Delusions: Present Perceptual Disturbances: Depersonalization and Derealization Thought Process: Distracted Thought Content: positive for Circumstantial, positive for Thought Blocking and positive for Tangential Judgement: Poor Diagnostics Vital Signs (24Hr): Vital Signs - 24 hr 10/28/24 20:00 Temperature 99.8 F Pulse Rate 109 H Blood Pressure 155/78 H Pulse Oximetry 100 Oxygen Delivery Method Room Air BMI result Body Mass Index 36.1 Labs 10/25/24 20:04 10/28/24 08:28 Labs: Laboratory Results - last 48 hr 10/28/24 08:28 Sodium 139 Potassium 4.3 Chloride 108 Carbon Dioxide 24 Anion Gap 11 L BUN 18 H Creatinine 0.73 Estim Creat Clear Calc 113.8 Estimated GFR > 60 Random Glucose 118 H Estimat Average Glucose 80 Hemoglobin A1c % 4.4 Calcium 9.2 Magnesium 1.9 Total Bilirubin 0.4 AST 18 ALT 21 Alkaline Phosphatase 77 Total Protein 6.9 Albumin 4.1 Triglycerides 173 H Cholesterol 169 LDL Cholesterol, Calc 109 H HDL Cholesterol 26 L Vitamin B12 279 Folate 5.0 TSH 0.93 Free T4 1.03 Medications Medications Current Medications Acetaminophen (Acetaminophen 325 Mg Tablet) 650 mg PO Q6H PRN PRN Reason: Headache/Pain, Scale 1-10 Last Admin: 10/28/24 21:01 Dose: 650 mg Al Hydroxide/Mg Hydroxide (Magnesium Hydrox/Alum Hydrox 30 Ml Oral.Susp) 30 ml PO Q6H PRN PRN Reason: Heartburn/Nausea Albuterol Sulfate (Albuterol Sulfate 90 Mcg 8 Gm Inhaler) 2 puff INHALE QID PRN PRN Reason: Shortness Of Breath Last Admin: 10/29/24 08:50 Dose: 2 puff Diphenhydramine HCl (Diphenhydramine Hcl 25 Mg Capsule) 50 mg PO QID PRN PRN Reason: Allergy symptoms Last Admin: 10/28/24 20:57 Dose: 50 mg Hydroxyzine HCl (Hydroxyzine Hcl 25 Mg Tablet) 25 mg PO Q6H PRN PRN Reason: mild anxiety Last Admin: 10/28/24 18:16 Dose: 25 mg Ibuprofen (Ibuprofen 400 Mg Tablet) 400 mg PO QID PRN PRN Reason: Pain, Moderate(Pain Scale 4-6) Last Admin: 10/27/24 11:12 Dose: 400 mg Lorazepam (Lorazepam 1 Mg Tablet) 1 mg PO TID PRN PRN Reason: severe anxiety/agitation Last Admin: 10/29/24 04:29 Dose: 1 mg Magnesium Hydroxide (Milk Of Magnesia 30 Ml Oral.Susp) 30 ml PO DAILY PRN PRN Reason: Constipation Last Admin: 10/28/24 14:44 Dose: 30 ml Nicotine Polacrilex (Nicotine Polacrilex 2 Mg Gum) 4 mg BUCCAL Q2H PRN PRN Reason: Nicotine Cravings Last Admin: 10/28/24 16:17 Dose: 4 mg Olanzapine (Olanzapine Odt 10 Mg Tab.Rapdis) 10 mg TRANSLINGU Q4H PRN PRN Reason: agitation Last Admin: 10/29/24 04:29 Dose: 10 mg Trazodone HCl (Trazodone Hcl 50 Mg Tablet) 50 mg PO BEDTIME MRX1 PRN PRN Reason: Insomnia Last Admin: 10/28/24 20:56 Dose: 50 mg Ziprasidone (Ziprasidone 40 Mg Capsule) 40 mg PO BID NATALIA Last Admin: 10/29/24 08:42 Dose: 40 mg Allergies Allergies Allergy/AdvReac Type Severity Reaction Status Date / Time animal dander (PET DANDER) Allergy Unknown Itching Verified 10/23/24 13:51 bee pollen (BEE STINGS) Allergy Unknown Swelling Verified 10/23/24 13:51 house dust Allergy Unknown Unknown Verified 10/23/24 13:51 shellfish derived (SHELLFISH Allergy Unknown Swelling Verified 10/23/24 13:51 DERIVED) Seasonal Allergies Allergy Itching Verified 10/23/24 13:51 Assessment & Plan Assessment & Plan (1) Bipolar 1 disorder: Status: Acute Code(s): F31.9 - Bipolar disorder, unspecified Assessment and Plan: 39-year-old female with history of schizoaffective disorder, bipolar disorder, and PTSD presented to [facility] ED on 10/23/2024 via EMS, after her family reported manic and self-harming/bizarre behaviors, and medication noncompliance. On interview with this provider, patient stated her family brought her to the hospital for housing. She states that she has been homeless and sleeping on concrete floor on the streets for the past 2 years. She notes that she is on medications, including trazodone and Geodon which were helpful but has not taking them she she ran out of refills about 2 months ago. She states that she usually sleeps well and does not recall being sleep deprived. She currently feels ?enlightened and happy.? She was tearful as she explained that her nephew in her arms a long time ago and that her 21-year-old daughter earlier this year. She was notified about her daughter's by a family member. She wants to leave today to see her daughter's grave that she has not been able to see. She currently denies depression, anxiety, SI, HI, AH, VH. She notes that she consumes 1 edible and smokes a blunt of cannabis daily. She smokes half a pack of cigarettes daily. She drinks 1 nip of vodka daily. She denies other illicit drugs. She is disorganized, disruptive, and internally preoccupied during the interview. Formulation/Clinical reasoning: Bipolar 1 disorder: Patient is currently exhibited symptoms of bipolar 1 disorder which is likely due to medication noncompliance. Her medications have been reconciled and restarted. Continue current treatment regimen. Plan Admit to M5. 12b - 15 minutes check. Diagnostics as needed. Collateral contact. Continue remainder of regime. Encouraged full milieu. Discharge planning. 10/29: Increase Geodon to 60 mg bid Reason for continued inpatient stay Substantial Risk for: rapid decompensation Time Spent With Patient Time: Total time managing care of this patient today ____ minutes.
[2024-10-29 20:00] VITALS: BP 124/67; PULSE 86; RESP 16; TEMP 37.1; O2SAT 99
[2024-10-30] MEDS: Albuterol Sulfate 90 MCG 8 GM INHALER 2 PUFF INHALE ×3 (00:47→19:07)
[2024-10-30] MEDS: OLANZapine ODT 10 MG TAB.RAPDIS TRANSLINGU ×4 (00:50→20:55)
[2024-10-30 08:45] VITALS: RESP 18
--- NOTE | 2024-10-30 17:27 | P.PNPSI_ITS ---
Subjective Subjective Date of Service: 10/30/24 Reason For Visit: Psychosis Interim History: Patient is disorganized, tangential. Asks Am I a real estate administrative assistant here or a patient? Then later asks Am I a slave or a patient? . She says there is this woman, Leticia, she owns the world... She put ice cream on her hair and then put water on self. Accepting medications. Review of Systems Review of Systems Yes all other systems are reviewed and are negative and Unobtainable due to mental status Constitutional: Reports as per [facility] Mental Status Exam Mental Status Exam Narrative: Appearance: Casually dressed, unkempt Behavior: Hyperactive, restless. Eye contact is appropriate, and there are no signs of psychomotor agitation or retardation Speech: Pressured speech Thought process: Flight of ideas, racing thoughts Thought content: Delusions and preoccupations Mood: enlightened and happy Affect: Labile SI:denies HI:denies VH/AH:none Delusions: Likely fixed false beliefs Insight/judgment: Impaired insight and judgment Memory/cog: Alert, oriented x 4. grossly intact to conversational testing Patient Appearance: Disheveled Patient Orientation: Person and Place Level of Consciousness: Alert Patient Behavior: Talkative and Cooperative Mood Description: Labile Affect Description: Labile Patient Cognition Impaired: Yes Ability to Follow Directions: Fair Speech Pattern: Spontaneous Speech Memory Description: Remote Impaired Diagnostics Vital Signs (24Hr): Vital Signs - 24 hr 10/29/24 20:00 10/30/24 08:45 Temperature 98.8 F Pulse Rate 86 Respiratory Rate 16 18 Blood Pressure 124/67 Pulse Oximetry 99 Oxygen Delivery Method Room Air BMI result Body Mass Index 36.1 Labs 10/25/24 20:04 10/28/24 08:28 Medications Medications Current Medications Acetaminophen (Acetaminophen 325 Mg Tablet) 650 mg PO Q6H PRN PRN Reason: Headache/Pain, Scale 1-10 Last Admin: 10/30/24 10:25 Dose: 650 mg Al Hydroxide/Mg Hydroxide (Magnesium Hydrox/Alum Hydrox 30 Ml Oral.Susp) 30 ml PO Q6H PRN PRN Reason: Heartburn/Nausea Albuterol Sulfate (Albuterol Sulfate 90 Mcg 8 Gm Inhaler) 2 puff INHALE QID PRN PRN Reason: Shortness Of Breath Last Admin: 10/30/24 12:09 Dose: 2 puff Diphenhydramine HCl (Diphenhydramine Hcl 25 Mg Capsule) 50 mg PO QID PRN PRN Reason: Allergy symptoms Last Admin: 10/30/24 16:09 Dose: 50 mg Hydroxyzine HCl (Hydroxyzine Hcl 25 Mg Tablet) 25 mg PO Q6H PRN PRN Reason: mild anxiety Last Admin: 10/30/24 10:26 Dose: 25 mg Ibuprofen (Ibuprofen 400 Mg Tablet) 400 mg PO QID PRN PRN Reason: Pain, Moderate(Pain Scale 4-6) Last Admin: 10/30/24 16:44 Dose: 400 mg Lorazepam (Lorazepam 1 Mg Tablet) 1 mg PO TID PRN PRN Reason: severe anxiety/agitation Last Admin: 10/30/24 00:50 Dose: 1 mg Magnesium Hydroxide (Milk Of Magnesia 30 Ml Oral.Susp) 30 ml PO DAILY PRN PRN Reason: Constipation Last Admin: 10/28/24 14:44 Dose: 30 ml Nicotine Polacrilex (Nicotine Polacrilex 2 Mg Gum) 4 mg BUCCAL Q2H PRN PRN Reason: Nicotine Cravings Last Admin: 10/30/24 10:26 Dose: 4 mg Olanzapine (Olanzapine Odt 10 Mg Tab.Rapdis) 10 mg TRANSLINGU Q4H PRN PRN Reason: agitation Last Admin: 10/30/24 16:09 Dose: 10 mg Trazodone HCl (Trazodone Hcl 50 Mg Tablet) 50 mg PO BEDTIME MRX1 PRN PRN Reason: Insomnia Last Admin: 10/28/24 20:56 Dose: 50 mg Ziprasidone (Ziprasidone 60 Mg Capsule) 60 mg PO BID NATALIA Last Admin: 10/30/24 08:36 Dose: 60 mg Allergies Allergies Allergy/AdvReac Type Severity Reaction Status Date / Time animal dander (PET DANDER) Allergy Unknown Itching Verified 10/23/24 13:51 bee pollen (BEE STINGS) Allergy Unknown Swelling Verified 10/23/24 13:51 house dust Allergy Unknown Unknown Verified 10/23/24 13:51 shellfish derived (SHELLFISH Allergy Unknown Swelling Verified 10/23/24 13:51 DERIVED) Seasonal Allergies Allergy Itching Verified 10/23/24 13:51 Assessment & Plan Assessment & Plan (1) Bipolar 1 disorder: Status: Acute Code(s): F31.9 - Bipolar disorder, unspecified Assessment and Plan: 39-year-old female with history of schizoaffective disorder, bipolar disorder, and PTSD presented to [facility] [place] on 10/23/[place]24 via EMS, after her family reported manic and self-harming/bizarre behaviors, and medication noncompliance. On interview with this provider, patient stated her family brought her to the hospital for housing. She states that she has been homeless and sleeping on concrete floor on the streets for the past 2 years. She notes that she is on medications, including trazodone and Geodon which were helpful but has not taking them she she ran out of refills about 2 months ago. She states that she usually sleeps well and does not recall being sleep deprived. She currently feels ?enlightened and happy.? She was tearful as she explained that her nephew in her arms a long time ago and that her 21-year-old daughter earlier this year. She was notified about her daughter's by a family member. She wants to leave today to see her daughter's grave that she has not been able to see. She currently denies depression, anxiety, SI, HI, AH, VH. She notes that she consumes 1 edible and smokes a blunt of cannabis daily. She smokes half a pack of cigarettes daily. She drinks 1 nip of vodka daily. She denies other illicit drugs. She is disorganized, disruptive, and internally preoccupied during the interview. Formulation/Clinical reasoning: Bipolar 1 disorder: Patient is currently exhibited symptoms of bipolar 1 disorder which is likely due to medication noncompliance. Her medications have been reconciled and restarted. Continue current treatment regimen. Plan Admit to M5. 12b - 15 minutes check. Diagnostics as needed. Collateral contact. Continue remainder of regime. Encouraged full milieu. Discharge planning. 10/29: Increase Geodon to 60 mg bid 10/30: Continue current management and treatment plan. Reason for continued inpatient stay Substantial Risk for: inability to function and rapid decompensation Time Spent With Patient Time: Total time managing care of this patient today ____ minutes.
[2024-10-30 19:53] VITALS: BP 139/82; PULSE 113; RESP 18; TEMP 36.8; O2SAT 98
[2024-10-31] MEDS: Albuterol Sulfate 90 MCG 8 GM INHALER 2 PUFF INHALE ×5 (03:56→23:30)
[2024-10-31] MEDS: OLANZapine ODT 10 MG TAB.RAPDIS TRANSLINGU ×2 (07:39→14:19)
[2024-10-31 07:43] VITALS: BP 150/89; PULSE 97; RESP 18; TEMP 36.6; O2SAT 99
--- NOTE | 2024-10-31 09:45 | P.PNPSI_ITS ---
Subjective Subjective Date of Service: 10/31/24 Reason For Visit: Psychosis Interim History: Patient is intrusive and observed dancing and singing on the unit with headphones on. Disinhibited with staff making inappropriate comments. Accepting medications. Still disorganized and tangential but per primary team who knows her since admission, she is calmer than when she first arrived on the unit. She made some logical statements today. Says she needs help finding housing and wants to go back into therapy. Self dialoguing and internally preoccupied and visibly hallucinating. Review of Systems Review of Systems Yes all other systems are reviewed and are negative and Unobtainable due to mental status Constitutional: Reports as per [facility] Mental Status Exam Mental Status Exam Narrative: Appearance: Casually dressed, unkempt Behavior: Hyperactive, restless. Eye contact is appropriate, and there are no signs of psychomotor agitation or retardation Speech: Pressured speech Thought process: Flight of ideas, racing thoughts Thought content: Delusions and preoccupations Mood: enlightened and happy Affect: Labile SI:denies HI:denies VH/AH:none Delusions: Likely fixed false beliefs Insight/judgment: Impaired insight and judgment Memory/cog: Alert, oriented x 4. grossly intact to conversational testing Patient Appearance: Disheveled Patient Orientation: Person and Place Level of Consciousness: Alert Patient Behavior: Talkative and Cooperative Mood Description: Labile Affect Description: Labile Patient Cognition Impaired: Yes Ability to Follow Directions: Fair Speech Pattern: Spontaneous Speech Memory Description: Remote Impaired Diagnostics Vital Signs (24Hr): Vital Signs - 24 hr 10/30/24 19:53 10/31/24 07:43 Temperature 98.2 F 97.9 F Pulse Rate 113 H 97 Respiratory Rate 18 18 Blood Pressure 139/82 150/89 H Pulse Oximetry 98 99 Oxygen Delivery Method Room Air Room Air BMI result Body Mass Index 36.1 Labs 10/25/24 20:04 10/28/24 08:28 Medications Medications Current Medications Acetaminophen (Acetaminophen 325 Mg Tablet) 650 mg PO Q6H PRN PRN Reason: Headache/Pain, Scale 1-10 Last Admin: 10/31/24 07:39 Dose: 650 mg Al Hydroxide/Mg Hydroxide (Magnesium Hydrox/Alum Hydrox 30 Ml Oral.Susp) 30 ml PO Q6H PRN PRN Reason: Heartburn/Nausea Albuterol Sulfate (Albuterol Sulfate 90 Mcg 8 Gm Inhaler) 2 puff INHALE QID PRN PRN Reason: Shortness Of Breath Last Admin: 10/31/24 07:39 Dose: 2 puff Diphenhydramine HCl (Diphenhydramine Hcl 25 Mg Capsule) 50 mg PO QID PRN PRN Reason: Allergy symptoms Last Admin: 10/31/24 07:39 Dose: 50 mg Hydroxyzine HCl (Hydroxyzine Hcl 25 Mg Tablet) 25 mg PO Q6H PRN PRN Reason: mild anxiety Last Admin: 10/30/24 20:52 Dose: 25 mg Ibuprofen (Ibuprofen 400 Mg Tablet) 400 mg PO QID PRN PRN Reason: Pain, Moderate(Pain Scale 4-6) Last Admin: 10/30/24 16:44 Dose: 400 mg Lorazepam (Lorazepam 1 Mg Tablet) 1 mg PO TID PRN PRN Reason: severe anxiety/agitation Last Admin: 10/30/24 20:52 Dose: 1 mg Magnesium Hydroxide (Milk Of Magnesia 30 Ml Oral.Susp) 30 ml PO DAILY PRN PRN Reason: Constipation Last Admin: 10/28/24 14:44 Dose: 30 ml Nicotine Polacrilex (Nicotine Polacrilex 2 Mg Gum) 4 mg BUCCAL Q2H PRN PRN Reason: Nicotine Cravings Last Admin: 10/30/24 10:26 Dose: 4 mg Olanzapine (Olanzapine Odt 10 Mg Tab.Rapdis) 10 mg TRANSLINGU Q4H PRN PRN Reason: agitation Last Admin: 10/31/24 07:39 Dose: 10 mg Trazodone HCl (Trazodone Hcl 50 Mg Tablet) 50 mg PO BEDTIME MRX1 PRN PRN Reason: Insomnia Last Admin: 10/30/24 20:52 Dose: 50 mg Ziprasidone (Ziprasidone 60 Mg Capsule) 60 mg PO BID NATALIA Last Admin: 10/31/24 07:39 Dose: 60 mg Allergies Allergies Allergy/AdvReac Type Severity Reaction Status Date / Time animal dander (PET DANDER) Allergy Unknown Itching Verified 10/23/24 13:51 bee pollen (BEE STINGS) Allergy Unknown Swelling Verified 10/23/24 13:51 house dust Allergy Unknown Unknown Verified 10/23/24 13:51 shellfish derived (SHELLFISH Allergy Unknown Swelling Verified 10/23/24 13:51 DERIVED) Seasonal Allergies Allergy Itching Verified 10/23/24 13:51 Assessment & Plan Assessment & Plan (1) Bipolar 1 disorder: Status: Acute Code(s): F31.9 - Bipolar disorder, unspecified Assessment and Plan: 39-year-old female with history of schizoaffective disorder, bipolar disorder, and PTSD presented to [facility] ED on 10/23/2024 via EMS, after her family reported manic and self-harming/bizarre behaviors, and medication noncompliance. On interview with this provider, patient stated her family brought her to the hospital for housing. She states that she has been homeless and sleeping on concrete floor on the streets for the past 2 years. She notes that she is on medications, including trazodone and Geodon which were helpful but has not taking them she she ran out of refills about 2 months ago. She states that she usually sleeps well and does not recall being sleep deprived. She currently feels ?enlightened and happy.? She was tearful as she explained that her nephew in her arms a long time ago and that her 21-year-old daughter earlier this year. She was notified about her daughter's by a family member. She wants to leave today to see her daughter's grave that she has not been able to see. She currently denies depression, anxiety, SI, HI, AH, VH. She notes that she consumes 1 edible and smokes a blunt of cannabis daily. She smokes half a pack of cigarettes daily. She drinks 1 nip of vodka daily. She denies other illicit drugs. She is disorganized, disruptive, and internally preoccupied during the interview. Formulation/Clinical reasoning: Bipolar 1 disorder: Patient is currently exhibited symptoms of bipolar 1 disorder which is likely due to medication noncompliance. Her medications have been reconciled and restarted. Continue current treatment regimen. Plan Admit to M5. 12b - 15 minutes check. Diagnostics as needed. Collateral contact. Continue remainder of regime. Encouraged full milieu. Discharge planning. 10/29: Increase Geodon to 60 mg bid 10/30: Continue current management and treatment plan. 10/31: Continue current management and treatment plan. Reason for continued inpatient stay Substantial Risk for: inability to function and rapid decompensation Time Spent With Patient Time: Total time managing care of this patient today ____ minutes.
[2024-10-31] MEDS: Milk of Magnesia 30 ML ORAL.SUSP PO (12:55)
[2024-10-31 19:56] VITALS: BP 115/59; PULSE 93; TEMP 36.9; O2SAT 98
[2024-11-01] MEDS: Albuterol Sulfate 90 MCG 8 GM INHALER 2 PUFF INHALE ×3 (04:15→16:04)
[2024-11-01 08:00] VITALS: BP 120/69; PULSE 100; RESP 15; TEMP 36.8; O2SAT 100
--- NOTE | 2024-11-01 12:34 | HO.PSYCHPN ---
Subjective Subjective Date of Service: 11/01/24 Reason For Visit: Psychosis Subjective Notes: Section 12B Healthcare Proxy: No Guardianship: No Medical Problems Affecting Mental Status: No Interim History: Section Seven filed Geodon increased to 60 mg bid Pt remains disorganized, tangential today. She spent time talking with me about a cartoon character today. She denied med SE and reports she was not missing for two months, they just did not know where to look, you know. When Section Seven discussion was attempted, she declined, stated no and walked away. Medication Compliance: Yes Side effects from medications: No Review of Systems Acute medical concerns: No Review of Systems Review of Systems no Mental Status Exam Mental Status Exam Patient Appearance: Disheveled Patient Orientation: Person and Place Level of Consciousness: Alert Patient Behavior: Talkative and Good Eye Contact Mood Description: Labile Affect Description: Labile Patient Cognition Impaired: No Ability to Follow Directions: Fair Speech Pattern: Spontaneous Speech Memory Description: Remote Impaired Hallucinations: None (??) Delusions: Present Perceptual Disturbances: Derealization Thought Process: Illogical and Distracted Thought Content: positive for Flight of Ideas, positive for [place], positive for Circumstantial and positive for Suicidal Ideation (denies) Judgement: Poor Diagnostics Vital Signs (24Hr): Vital Signs - 24 hr 10/31/24 19:56 11/01/24 08:00 Temperature 98.5 F 98.2 F Pulse Rate 93 100 Respiratory Rate 15 Blood Pressure 115/59 L 120/69 Pulse Oximetry 98 100 Oxygen Delivery Method Room Air Room Air BMI result Body Mass Index 36.1 Labs 10/25/24 20:04 10/28/24 08:28 Medications Medications Current Medications Acetaminophen (Acetaminophen 325 Mg Tablet) 650 mg PO Q6H PRN PRN Reason: Headache/Pain, Scale 1-10 Last Admin: 11/01/24 11:51 Dose: 650 mg Al Hydroxide/Mg Hydroxide (Magnesium Hydrox/Alum Hydrox 30 Ml Oral.Susp) 30 ml PO Q6H PRN PRN Reason: Heartburn/Nausea Albuterol Sulfate (Albuterol Sulfate 90 Mcg 8 Gm Inhaler) 2 puff INHALE QID PRN PRN Reason: Shortness Of Breath Last Admin: 11/01/24 08:37 Dose: 2 puff Diphenhydramine HCl (Diphenhydramine Hcl 25 Mg Capsule) 50 mg PO QID PRN PRN Reason: Allergy symptoms Last Admin: 11/01/24 12:03 Dose: 50 mg Hydroxyzine HCl (Hydroxyzine Hcl 25 Mg Tablet) 25 mg PO Q6H PRN PRN Reason: mild anxiety Last Admin: 10/31/24 23:29 Dose: 25 mg Ibuprofen (Ibuprofen 400 Mg Tablet) 400 mg PO QID PRN PRN Reason: Pain, Moderate(Pain Scale 4-6) Last Admin: 10/31/24 14:19 Dose: 400 mg Lorazepam (Lorazepam 1 Mg Tablet) 1 mg PO TID PRN PRN Reason: severe anxiety/agitation Last Admin: 10/31/24 15:16 Dose: 1 mg Magnesium Hydroxide (Milk Of Magnesia 30 Ml Oral.Susp) 30 ml PO DAILY PRN PRN Reason: Constipation Last Admin: 10/31/24 12:55 Dose: 30 ml Nicotine Polacrilex (Nicotine Polacrilex 2 Mg Gum) 4 mg BUCCAL Q2H PRN PRN Reason: Nicotine Cravings Last Admin: 10/31/24 12:05 Dose: 4 mg Olanzapine (Olanzapine Odt 10 Mg Tab.Rapdis) 10 mg TRANSLINGU Q4H PRN PRN Reason: agitation Last Admin: 10/31/24 14:19 Dose: 10 mg Trazodone HCl (Trazodone Hcl 50 Mg Tablet) 50 mg PO BEDTIME MRX1 PRN PRN Reason: Insomnia Last Admin: 10/31/24 23:29 Dose: 50 mg Ziprasidone (Ziprasidone 60 Mg Capsule) 60 mg PO BID NATALIA Last Admin: 11/01/24 08:35 Dose: 60 mg Allergies Allergies Allergy/AdvReac Type Severity Reaction Status Date / Time animal dander (PET DANDER) Allergy Unknown Itching Verified 10/23/24 13:51 bee pollen (BEE STINGS) Allergy Unknown Swelling Verified 10/23/24 13:51 house dust Allergy Unknown Unknown Verified 10/23/24 13:51 shellfish derived (SHELLFISH Allergy Unknown Swelling Verified 10/23/24 13:51 DERIVED) Seasonal Allergies Allergy Itching Verified 10/23/24 13:51 Assessment & Plan Assessment & Plan (1) Bipolar 1 disorder: Status: Acute Code(s): F31.9 - Bipolar disorder, unspecified Assessment and Plan: 39-year-old female with history of schizoaffective disorder, bipolar disorder, and PTSD presented to [facility] on 10/23/2024 via EMS, after her family reported manic and self-harming/bizarre behaviors, and medication noncompliance. On interview with this provider, patient stated her family brought her to the hospital for housing. She states that she has been homeless and sleeping on concrete floor on the streets for the past 2 years. She notes that she is on medications, including trazodone and Geodon which were helpful but has not taking them she she ran out of refills about 2 months ago. She states that she usually sleeps well and does not recall being sleep deprived. She currently feels ?enlightened and happy.? She was tearful as she explained that her nephew in her arms a long time ago and that her 21-year-old daughter earlier this year. She was notified about her daughter's by a family member. She wants to leave today to see her daughter's grave that she has not been able to see. She currently denies depression, anxiety, SI, HI, AH, VH. She notes that she consumes 1 edible and smokes a blunt of cannabis daily. She smokes half a pack of cigarettes daily. She drinks 1 nip of vodka daily. She denies other illicit drugs. She is disorganized, disruptive, and internally preoccupied during the interview. Formulation/Clinical reasoning: Bipolar 1 disorder: Patient is currently exhibited symptoms of bipolar 1 disorder which is likely due to medication noncompliance. Her medications have been reconciled and restarted. Continue current treatment regimen. Plan Admit to M5. 12b - 15 minutes check. Diagnostics as needed. Collateral contact. Continue remainder of regime. Encouraged full milieu. Discharge planning. 10/29: Increase Geodon to 60 mg bid 10/30: Continue current management and treatment plan. 10/31: Continue current management and treatment plan. 11/01: Increase of Geodon tolerated. Will plan to increase again this week. Section Seven filed. Reason for continued inpatient stay Substantial Risk for: rapid decompensation Time Spent With Patient Time: Total time managing care of this patient today ____ minutes.
[2024-11-01] MEDS: Magnesium Hydrox/Alum Hydrox 30 ML ORAL.SUSP PO (12:35)
[2024-11-02] MEDS: Albuterol Sulfate 90 MCG 8 GM INHALER 2 PUFF INHALE ×7 (00:33→20:52)
[2024-11-02 08:00] VITALS: BP 132/74; PULSE 103; RESP 16; TEMP 37.1; O2SAT 100
--- NOTE | 2024-11-02 11:28 | HO.PSYCHPN ---
Subjective Subjective Date of Service: 11/02/24 Reason For Visit: Psychosis Subjective Notes: Section 7 Healthcare Proxy: No Guardianship: No Medical Problems Affecting Mental Status: No Interim History: Visable in milieu. Team reports pt is maintaining behavioral control with some throwing of beverages at times. Multiple interactions with pt in passing today. Declines to have a meeting with the team, however is asking appropriate questions when she approaches Medication Compliance: Yes Side effects from medications: No Attending Groups: No Review of Systems Acute medical concerns: No Review of Systems Review of Systems no Mental Status Exam Mental Status Exam Patient Appearance: Disheveled Patient Orientation: Person and Place Level of Consciousness: Alert Patient Behavior: Talkative and Good Eye Contact Mood Description: Labile Affect Description: Labile Patient Cognition Impaired: No Ability to Follow Directions: Fair Speech Pattern: Spontaneous Speech Memory Description: Remote Impaired Hallucinations: None (??) Delusions: Present Perceptual Disturbances: Derealization Thought Process: Illogical and Distracted Thought Content: positive for Flight of Ideas, positive for [place], positive for Circumstantial and positive for Suicidal Ideation (denies) Judgement: Poor Diagnostics Vital Signs (24Hr): BMI result Body Mass Index 36.1 Labs 10/25/24 20:04 10/28/24 08:28 Medications Medications Current Medications Acetaminophen (Acetaminophen 325 Mg Tablet) 650 mg PO Q6H PRN PRN Reason: Headache/Pain, Scale 1-10 Last Admin: 11/01/24 11:51 Dose: 650 mg Al Hydroxide/Mg Hydroxide (Magnesium Hydrox/Alum Hydrox 30 Ml Oral.Susp) 30 ml PO Q6H PRN PRN Reason: Heartburn/Nausea Last Admin: 11/01/24 12:35 Dose: 30 ml Albuterol Sulfate (Albuterol Sulfate 90 Mcg 8 Gm Inhaler) 2 puff INHALE QID PRN PRN Reason: Shortness Of Breath Last Admin: 11/02/24 10:42 Dose: 2 puff Diphenhydramine HCl (Diphenhydramine Hcl 25 Mg Capsule) 50 mg PO QID PRN PRN Reason: Allergy symptoms Last Admin: 11/01/24 12:03 Dose: 50 mg Hydroxyzine HCl (Hydroxyzine Hcl 25 Mg Tablet) 25 mg PO Q6H PRN PRN Reason: mild anxiety Last Admin: 11/01/24 17:04 Dose: 25 mg Ibuprofen (Ibuprofen 400 Mg Tablet) 400 mg PO QID PRN PRN Reason: Pain, Moderate(Pain Scale 4-6) Last Admin: 10/31/24 14:19 Dose: 400 mg Lorazepam (Lorazepam 1 Mg Tablet) 1 mg PO TID PRN PRN Reason: severe anxiety/agitation Last Admin: 11/01/24 13:36 Dose: 1 mg Magnesium Hydroxide (Milk Of Magnesia 30 Ml Oral.Susp) 30 ml PO DAILY PRN PRN Reason: Constipation Last Admin: 10/31/24 12:55 Dose: 30 ml Nicotine Polacrilex (Nicotine Polacrilex 2 Mg Gum) 4 mg BUCCAL Q2H PRN PRN Reason: Nicotine Cravings Last Admin: 11/02/24 00:33 Dose: 4 mg Olanzapine (Olanzapine Odt 10 Mg Tab.Rapdis) 10 mg TRANSLINGU Q4H PRN PRN Reason: agitation Last Admin: 10/31/24 14:19 Dose: 10 mg Trazodone HCl (Trazodone Hcl 50 Mg Tablet) 50 mg PO BEDTIME MRX1 PRN PRN Reason: Insomnia Last Admin: 11/02/24 00:33 Dose: 50 mg Ziprasidone (Ziprasidone 60 Mg Capsule) 60 mg PO BID NATALIA Last Admin: 11/02/24 08:46 Dose: 60 mg Allergies Allergies Allergy/AdvReac Type Severity Reaction Status Date / Time animal dander (PET DANDER) Allergy Unknown Itching Verified 10/23/24 13:51 bee pollen (BEE STINGS) Allergy Unknown Swelling Verified 10/23/24 13:51 house dust Allergy Unknown Unknown Verified 10/23/24 13:51 shellfish derived (SHELLFISH Allergy Unknown Swelling Verified 10/23/24 13:51 DERIVED) Seasonal Allergies Allergy Itching Verified 10/23/24 13:51 Assessment & Plan Assessment & Plan (1) Bipolar 1 disorder: Status: Acute Code(s): F31.9 - Bipolar disorder, unspecified Assessment and Plan: 39-year-old female with history of schizoaffective disorder, bipolar disorder, and PTSD presented to [facility] on 10/23/2024 via EMS, after her family reported manic and self-harming/bizarre behaviors, and medication noncompliance. On interview with this provider, patient stated her family brought her to the hospital for housing. She states that she has been homeless and sleeping on concrete floor on the streets for the past 2 years. She notes that she is on medications, including trazodone and Geodon which were helpful but has not taking them she she ran out of refills about 2 months ago. She states that she usually sleeps well and does not recall being sleep deprived. She currently feels ?enlightened and happy.? She was tearful as she explained that her nephew in her arms a long time ago and that her 21-year-old daughter earlier this year. She was notified about her daughter's by a family member. She wants to leave today to see her daughter's grave that she has not been able to see. She currently denies depression, anxiety, SI, HI, AH, VH. She notes that she consumes 1 edible and smokes a blunt of cannabis daily. She smokes half a pack of cigarettes daily. She drinks 1 nip of vodka daily. She denies other illicit drugs. She is disorganized, disruptive, and internally preoccupied during the interview. Formulation/Clinical reasoning: Bipolar 1 disorder: Patient is currently exhibited symptoms of bipolar 1 disorder which is likely due to medication noncompliance. Her medications have been reconciled and restarted. Continue current treatment regimen. Plan Admit to M5. 12b - 15 minutes check. Diagnostics as needed. Collateral contact. Continue remainder of regime. Encouraged full milieu. Discharge planning. 10/29: Increase Geodon to 60 mg bid 10/30: Continue current management and treatment plan. 10/31: Continue current management and treatment plan. 11/02: Continue tx Reason for continued inpatient stay Substantial Risk for: rapid decompensation Time Spent With Patient Time: Total time managing care of this patient today ____ minutes.
[2024-11-02] MEDS: Milk of Magnesia 30 ML ORAL.SUSP PO (15:14)
[2024-11-03] MEDS: Albuterol Sulfate 90 MCG 8 GM INHALER 2 PUFF INHALE ×3 (05:37→22:10)
[2024-11-03 08:00] VITALS: BP 141/81; PULSE 97; RESP 16; TEMP 36.9; O2SAT 100
--- NOTE | 2024-11-03 14:21 | HO.PSYCHPN ---
Subjective Subjective Date of Service: 11/03/24 Reason For Visit: Psychosis Subjective Notes: Section 7 Healthcare Proxy: No Guardianship: No Medical Problems Affecting Mental Status: No Interim History: Met with pt and Cassie Mathew LCSW. Pt asking about discharge. States she has her own housing on [address], lives alone and was not missing for two months, I was there, I was found . Reports having a therapist on [facility]. and [facility] She is unsure of [facility]. Reports brother lives on [address], [place] and she believes his phone number to be [phone]. Reports having friends she can call who will help her in community. Reviewed Section 7 and our goal of having her meds stabilized and mood stabilized prior to discharge. She was accepting of this and then left the meeting to attend to other issues. Medication Compliance: Yes Side effects from medications: No Attending Groups: Intermittent Review of Systems Acute medical concerns: No Medical Review of Systems: unchanged Review of Systems Review of Systems Reports hx of COPD Mental Status Exam Mental Status Exam Patient Appearance: Disheveled Patient Orientation: Person and Place Level of Consciousness: Alert Patient Behavior: Talkative and Good Eye Contact Mood Description: Labile Affect Description: Labile Patient Cognition Impaired: No Ability to Follow Directions: Fair Speech Pattern: Spontaneous Speech Memory Description: Remote Impaired Hallucinations: None (??) Delusions: Present Perceptual Disturbances: Derealization Thought Process: Illogical and Distracted Thought Content: positive for Flight of Ideas, positive for [place], positive for Circumstantial and positive for Suicidal Ideation (denies) Judgement: Poor Diagnostics Vital Signs (24Hr): BMI result Body Mass Index 36.1 Labs 10/25/24 20:04 10/28/24 08:28 Medications Medications Current Medications Acetaminophen (Acetaminophen 325 Mg Tablet) 650 mg PO Q6H PRN PRN Reason: Headache/Pain, Scale 1-10 Last Admin: 11/03/24 05:56 Dose: 650 mg Al Hydroxide/Mg Hydroxide (Magnesium Hydrox/Alum Hydrox 30 Ml Oral.Susp) 30 ml PO Q6H PRN PRN Reason: Heartburn/Nausea Last Admin: 11/01/24 12:35 Dose: 30 ml Albuterol Sulfate (Albuterol Sulfate 90 Mcg 8 Gm Inhaler) 2 puff INHALE QID PRN PRN Reason: Shortness Of Breath Last Admin: 11/03/24 12:54 Dose: 2 puff Diphenhydramine HCl (Diphenhydramine Hcl 25 Mg Capsule) 50 mg PO QID PRN PRN Reason: Allergy symptoms Last Admin: 11/03/24 14:06 Dose: 50 mg Hydroxyzine HCl (Hydroxyzine Hcl 25 Mg Tablet) 25 mg PO Q6H PRN PRN Reason: mild anxiety Last Admin: 11/03/24 05:56 Dose: 25 mg Ibuprofen (Ibuprofen 400 Mg Tablet) 400 mg PO QID PRN PRN Reason: Pain, Moderate(Pain Scale 4-6) Last Admin: 11/02/24 14:50 Dose: 400 mg Lorazepam (Lorazepam 1 Mg Tablet) 1 mg PO TID PRN PRN Reason: severe anxiety/agitation Last Admin: 11/03/24 14:15 Dose: 1 mg Magnesium Hydroxide (Milk Of Magnesia 30 Ml Oral.Susp) 30 ml PO DAILY PRN PRN Reason: Constipation Last Admin: 11/02/24 15:14 Dose: 30 ml Nicotine Polacrilex (Nicotine Polacrilex 2 Mg Gum) 4 mg BUCCAL Q2H PRN PRN Reason: Nicotine Cravings Last Admin: 11/02/24 00:33 Dose: 4 mg Olanzapine (Olanzapine Odt 10 Mg Tab.Rapdis) 10 mg TRANSLINGU Q4H PRN PRN Reason: agitation Last Admin: 10/31/24 14:19 Dose: 10 mg Trazodone HCl (Trazodone Hcl 50 Mg Tablet) 50 mg PO BEDTIME MRX1 PRN PRN Reason: Insomnia Last Admin: 11/02/24 00:33 Dose: 50 mg Ziprasidone (Ziprasidone 80 Mg Capsule) 80 mg PO BID NATALIA Allergies Allergies Allergy/AdvReac Type Severity Reaction Status Date / Time animal dander (PET DANDER) Allergy Unknown Itching Verified 10/23/24 13:51 bee pollen (BEE STINGS) Allergy Unknown Swelling Verified 10/23/24 13:51 house dust Allergy Unknown Unknown Verified 10/23/24 13:51 shellfish derived (SHELLFISH Allergy Unknown Swelling Verified 10/23/24 13:51 DERIVED) Seasonal Allergies Allergy Itching Verified 10/23/24 13:51 Assessment & Plan Assessment & Plan (1) Bipolar 1 disorder: Status: Acute Code(s): F31.9 - Bipolar disorder, unspecified Assessment and Plan: 39-year-old female with history of schizoaffective disorder, bipolar disorder, and PTSD presented to [facility] on 10/23/2024 via EMS, after her family reported manic and self-harming/bizarre behaviors, and medication noncompliance. On interview with this provider, patient stated her family brought her to the hospital for housing. She states that she has been homeless and sleeping on concrete floor on the streets for the past 2 years. She notes that she is on medications, including trazodone and Geodon which were helpful but has not taking them she she ran out of refills about 2 months ago. She states that she usually sleeps well and does not recall being sleep deprived. She currently feels ?enlightened and happy.? She was tearful as she explained that her nephew in her arms a long time ago and that her 21-year-old daughter earlier this year. She was notified about her daughter's by a family member. She wants to leave today to see her daughter's grave that she has not been able to see. She currently denies depression, anxiety, SI, HI, AH, VH. She notes that she consumes 1 edible and smokes a blunt of cannabis daily. She smokes half a pack of cigarettes daily. She drinks 1 nip of vodka daily. She denies other illicit drugs. She is disorganized, disruptive, and internally preoccupied during the interview. Formulation/Clinical reasoning: Bipolar 1 disorder: Patient is currently exhibited symptoms of bipolar 1 disorder which is likely due to medication noncompliance. Her medications have been reconciled and restarted. Continue current treatment regimen. Plan Admit to M5. 12b - 15 minutes check. Diagnostics as needed. Collateral contact. Continue remainder of regime. Encouraged full milieu. Discharge planning. 10/29: Increase Geodon to 60 mg bid 10/30: Continue current management and treatment plan. 10/31: Continue current management and treatment plan. 11/03: Increase Geodon to 80 mg bid Reason for continued inpatient stay Substantial Risk for: rapid decompensation Time Spent With Patient Time: Total time managing care of this patient today ____ minutes.
[2024-11-03] MEDS: Milk of Magnesia 30 ML ORAL.SUSP PO (15:09)
[2024-11-03 19:48] VITALS: BP 161/89; PULSE 103; RESP 16; TEMP 36.9; O2SAT 98
[2024-11-04] MEDS: Albuterol Sulfate 90 MCG 8 GM INHALER 2 PUFF INHALE ×3 (05:26→18:13)
[2024-11-04 07:00] VITALS: BMI 37.3
[2024-11-04 08:13] VITALS: BP 127/65; PULSE 101; RESP 18; TEMP 36.8; O2SAT 97
--- NOTE | 2024-11-04 11:55 | HO.PSYCHPN ---
Subjective Subjective Date of Service: 11/04/24 Reason For Visit: Psychosis Subjective Notes: Section [employer] Proxy: No Guardianship: No Medical Problems Affecting Mental Status: No Interim History: Visable in the milieu. Using headphones. No behavioral dyscontrol is noted. At times, team reports pt will pour fluids/condiments on her hair/head for unknown reasons. When asked, pt reports she is happy Denies medication side effects. Attempting to engage with peers Continues however to present with some psychosis, distraction which is clearing. Medication Compliance: Yes Side effects from medications: No Attending Groups: Intermittent Review of Systems Acute medical concerns: No Review of Systems Review of Systems i am dancing Mental Status Exam Mental Status Exam Patient Appearance: Appropriate Patient Orientation: Person, Place and Situation Level of Consciousness: Alert Patient Behavior: Talkative and Good Eye Contact Mood Description: Euphoric and Labile Affect Description: Labile Patient Cognition Impaired: No Ability to Follow Directions: Fair Speech Pattern: Spontaneous Speech Memory Description: Remote Impaired Hallucinations: None (??) Delusions: Present Perceptual Disturbances: Derealization Thought Process: Illogical and Distracted Thought Content: positive for Flight of Ideas, positive for [place], positive for Circumstantial and positive for Suicidal Ideation (denies) Judgement: Poor Diagnostics Vital Signs (24Hr): Vital Signs - 24 hr 11/03/24 19:48 11/04/24 08:13 Temperature 98.4 F 98.2 F Pulse Rate 103 H 101 H Respiratory Rate 16 18 Blood Pressure 161/89 H 127/65 Pulse Oximetry 98 97 Oxygen Delivery Method Room Air Room Air BMI result Body Mass Index 36.1 Labs 10/25/24 20:04 10/28/24 08:28 Medications Medications Current Medications Acetaminophen (Acetaminophen 325 Mg Tablet) 650 mg PO Q6H PRN PRN Reason: Headache/Pain, Scale 1-10 Last Admin: 11/03/24 15:05 Dose: 650 mg Al Hydroxide/Mg Hydroxide (Magnesium Hydrox/Alum Hydrox 30 Ml Oral.Susp) 30 ml PO Q6H PRN PRN Reason: Heartburn/Nausea Last Admin: 11/01/24 12:35 Dose: 30 ml Albuterol Sulfate (Albuterol Sulfate 90 Mcg 8 Gm Inhaler) 2 puff INHALE QID PRN PRN Reason: Shortness Of Breath Last Admin: 11/04/24 05:26 Dose: 2 puff Diphenhydramine HCl (Diphenhydramine Hcl 25 Mg Capsule) 50 mg PO QID PRN PRN Reason: Allergy symptoms Last Admin: 11/03/24 14:06 Dose: 50 mg Hydroxyzine HCl (Hydroxyzine Hcl 25 Mg Tablet) 25 mg PO Q6H PRN PRN Reason: mild anxiety Last Admin: 11/03/24 15:33 Dose: 25 mg Ibuprofen (Ibuprofen 400 Mg Tablet) 400 mg PO QID PRN PRN Reason: Pain, Moderate(Pain Scale 4-6) Last Admin: 11/03/24 15:45 Dose: 400 mg Lorazepam (Lorazepam 1 Mg Tablet) 1 mg PO TID PRN PRN Reason: severe anxiety/agitation Last Admin: 11/04/24 06:18 Dose: 1 mg Magnesium Hydroxide (Milk Of Magnesia 30 Ml Oral.Susp) 30 ml PO DAILY PRN PRN Reason: Constipation Last Admin: 11/03/24 15:09 Dose: 30 ml Nicotine Polacrilex (Nicotine Polacrilex 2 Mg Gum) 4 mg BUCCAL Q2H PRN PRN Reason: Nicotine Cravings Last Admin: 11/03/24 17:29 Dose: 2 mg Olanzapine (Olanzapine Odt 10 Mg Tab.Rapdis) 10 mg TRANSLINGU Q4H PRN PRN Reason: agitation Last Admin: 10/31/24 14:19 Dose: 10 mg Trazodone HCl (Trazodone Hcl 50 Mg Tablet) 50 mg PO BEDTIME MRX1 PRN PRN Reason: Insomnia Last Admin: 11/04/24 02:22 Dose: 50 mg Ziprasidone (Ziprasidone 80 Mg Capsule) 80 mg PO BID NATALIA Last Admin: 11/04/24 08:02 Dose: 80 mg Allergies Allergies Allergy/AdvReac Type Severity Reaction Status Date / Time animal dander (PET DANDER) Allergy Unknown Itching Verified 10/23/24 13:51 bee pollen (BEE STINGS) Allergy Unknown Swelling Verified 10/23/24 13:51 house dust Allergy Unknown Unknown Verified 10/23/24 13:51 shellfish derived (SHELLFISH Allergy Unknown Swelling Verified 10/23/24 13:51 DERIVED) Seasonal Allergies Allergy Itching Verified 10/23/24 13:51 Assessment & Plan Assessment & Plan (1) Bipolar 1 disorder: Status: Acute Code(s): F31.9 - Bipolar disorder, unspecified Assessment and Plan: 39-year-old female with history of schizoaffective disorder, bipolar disorder, and PTSD presented to [facility] on 10/23/2024 via EMS, after her family reported manic and self-harming/bizarre behaviors, and medication noncompliance. On interview with this provider, patient stated her family brought her to the hospital for housing. She states that she has been homeless and sleeping on concrete floor on the streets for the past 2 years. She notes that she is on medications, including trazodone and Geodon which were helpful but has not taking them she she ran out of refills about 2 months ago. She states that she usually sleeps well and does not recall being sleep deprived. She currently feels ?enlightened and happy.? She was tearful as she explained that her nephew in her arms a long time ago and that her 21-year-old daughter earlier this year. She was notified about her daughter's by a family member. She wants to leave today to see her daughter's grave that she has not been able to see. She currently denies depression, anxiety, SI, HI, AH, VH. She notes that she consumes 1 edible and smokes a blunt of cannabis daily. She smokes half a pack of cigarettes daily. She drinks 1 nip of vodka daily. She denies other illicit drugs. She is disorganized, disruptive, and internally preoccupied during the interview. Formulation/Clinical reasoning: Bipolar 1 disorder: Patient is currently exhibited symptoms of bipolar 1 disorder which is likely due to medication noncompliance. Her medications have been reconciled and restarted. Continue current treatment regimen. Plan Admit to M5. 12b - 15 minutes check. Diagnostics as needed. Collateral contact. Continue remainder of regime. Encouraged full milieu. Discharge planning. 10/29: Increase Geodon to 60 mg bid 10/30: Continue current management and treatment plan. 10/31: Continue current management and treatment plan. 11/04: Continue tx Reason for continued inpatient stay Substantial Risk for: rapid decompensation Time Spent With Patient Time: Total time managing care of this patient today ____ minutes.
[2024-11-04 20:00] VITALS: BP 147/84; PULSE 101; RESP 18; TEMP 37.1; O2SAT 100
[2024-11-05 08:00] VITALS: BP 148/57; PULSE 108; RESP 20; TEMP 36.9; O2SAT 99
--- NOTE | 2024-11-05 08:23 | HO.PSYCHPN ---
Subjective Subjective Date of Service: 11/05/24 Reason For Visit: Psychosis Interim History: Met with patient. Discussed with nursing. Overall gradually less manic. Less intrusive. With marketing copywriter bright, slightly intrusive at times. Speech pressured and tangential. No overt grandiosity or psychosis. Reports being very eager for discharge but easily redirected to discussing with primary team after the weekend. Sleep okay. Adherent with medications Medication Compliance: Yes Side effects from medications: No Attending Groups: Intermittent Review of Systems Acute medical concerns: No Review of Systems Review of Systems unremarkable Mental Status Exam Mental Status Exam Patient Appearance: Appropriate Patient Orientation: Person, Place and Situation Level of Consciousness: Alert Patient Behavior: Talkative and Good Eye Contact Mood Description: Euphoric ( lessening), Happy and Labile Affect Description: Labile Patient Cognition Impaired: No Ability to Follow Directions: Fair Speech Pattern: Spontaneous Speech Memory Description: Remote Impaired Hallucinations: None (??) Delusions: Present Perceptual Disturbances: Derealization Thought Process: Illogical and Distracted Thought Content: positive for Flight of Ideas, positive for [place], positive for Circumstantial and positive for Suicidal Ideation (denies) Judgement: Poor Diagnostics Vital Signs (24Hr): Vital Signs - 24 hr 11/04/24 20:00 11/05/24 08:00 Temperature 98.7 F 98.4 F Pulse Rate 101 H 108 H Respiratory Rate 18 20 Blood Pressure 147/84 H 148/57 H Pulse Oximetry 100 99 Oxygen Delivery Method Room Air Room Air BMI result Body Mass Index 37.3 Labs 10/25/24 20:04 10/28/24 08:28 Medications Medications Current Medications Acetaminophen (Acetaminophen 325 Mg Tablet) 650 mg PO Q6H PRN PRN Reason: Headache/Pain, Scale 1-10 Last Admin: 11/04/24 20:56 Dose: 650 mg Al Hydroxide/Mg Hydroxide (Magnesium Hydrox/Alum Hydrox 30 Ml Oral.Susp) 30 ml PO Q6H PRN PRN Reason: Heartburn/Nausea Last Admin: 11/01/24 12:35 Dose: 30 ml Albuterol Sulfate (Albuterol Sulfate 90 Mcg 8 Gm Inhaler) 2 puff INHALE QID PRN PRN Reason: Shortness Of Breath Last Admin: 11/04/24 18:13 Dose: 2 puff Diphenhydramine HCl (Diphenhydramine Hcl 25 Mg Capsule) 50 mg PO QID PRN PRN Reason: Allergy symptoms Last Admin: 11/04/24 18:14 Dose: 50 mg Hydroxyzine HCl (Hydroxyzine Hcl 25 Mg Tablet) 25 mg PO Q6H PRN PRN Reason: mild anxiety Last Admin: 11/04/24 12:51 Dose: 25 mg Ibuprofen (Ibuprofen 400 Mg Tablet) 400 mg PO QID PRN PRN Reason: Pain, Moderate(Pain Scale 4-6) Last Admin: 11/05/24 07:48 Dose: 400 mg Lorazepam (Lorazepam 1 Mg Tablet) 1 mg PO TID PRN PRN Reason: severe anxiety/agitation Last Admin: 11/04/24 12:51 Dose: 1 mg Magnesium Hydroxide (Milk Of Magnesia 30 Ml Oral.Susp) 30 ml PO DAILY PRN PRN Reason: Constipation Last Admin: 11/03/24 15:09 Dose: 30 ml Nicotine Polacrilex (Nicotine Polacrilex 2 Mg Gum) 4 mg BUCCAL Q2H PRN PRN Reason: Nicotine Cravings Last Admin: 11/03/24 17:29 Dose: 2 mg Olanzapine (Olanzapine Odt 10 Mg Tab.Rapdis) 10 mg TRANSLINGU Q4H PRN PRN Reason: agitation Last Admin: 10/31/24 14:19 Dose: 10 mg Trazodone HCl (Trazodone Hcl 50 Mg Tablet) 50 mg PO BEDTIME MRX1 PRN PRN Reason: Insomnia Last Admin: 11/04/24 20:53 Dose: 50 mg Ziprasidone (Ziprasidone 80 Mg Capsule) 80 mg PO BID NATALIA Last Admin: 11/04/24 20:53 Dose: 80 mg Allergies Allergies Allergy/AdvReac Type Severity Reaction Status Date / Time animal dander (PET DANDER) Allergy Unknown Itching Verified 10/23/24 13:51 bee pollen (BEE STINGS) Allergy Unknown Swelling Verified 10/23/24 13:51 house dust Allergy Unknown Unknown Verified 10/23/24 13:51 shellfish derived (SHELLFISH Allergy Unknown Swelling Verified 10/23/24 13:51 DERIVED) Seasonal Allergies Allergy Itching Verified 10/23/24 13:51 Assessment & Plan Assessment & Plan (1) Bipolar 1 disorder: Status: Acute Code(s): F31.9 - Bipolar disorder, unspecified Assessment and Plan: 39-year-old female with history of schizoaffective disorder, bipolar disorder, and PTSD presented to [facility] on 10/23/2024 via EMS, after her family reported manic and self-harming/bizarre behaviors, and medication noncompliance. On interview with this provider, patient stated her family brought her to the hospital for housing. She states that she has been homeless and sleeping on concrete floor on the streets for the past 2 years. She notes that she is on medications, including trazodone and Geodon which were helpful but has not taking them she she ran out of refills about 2 months ago. She states that she usually sleeps well and does not recall being sleep deprived. She currently feels ?enlightened and happy.? She was tearful as she explained that her nephew in her arms a long time ago and that her 21-year-old daughter earlier this year. She was notified about her daughter's by a family member. She wants to leave today to see her daughter's grave that she has not been able to see. She currently denies depression, anxiety, SI, HI, AH, VH. She notes that she consumes 1 edible and smokes a blunt of cannabis daily. She smokes half a pack of cigarettes daily. She drinks 1 nip of vodka daily. She denies other illicit drugs. She is disorganized, disruptive, and internally preoccupied during the interview. Formulation/Clinical reasoning: Bipolar 1 disorder: Patient is currently exhibited symptoms of bipolar 1 disorder which is likely due to medication noncompliance. Her medications have been reconciled and restarted. Continue current treatment regimen. Plan Admit to M5. 12b - 15 minutes check. Diagnostics as needed. Collateral contact. Continue remainder of regime. Encouraged full milieu. Discharge planning. 10/29: Increase Geodon to 60 mg bid 10/30: Continue current management and treatment plan. 10/31: Continue current management and treatment plan. 11/04: Continue tx 11/05/2024: Continue current treatment plan Reason for continued inpatient stay Substantial Risk for: rapid decompensation Time Spent With Patient Time: Total time managing care of this patient today ____ minutes.
[2024-11-05] MEDS: Albuterol Sulfate 90 MCG 8 GM INHALER 2 PUFF INHALE ×3 (10:29→20:17)
[2024-11-05 21:45] VITALS: BP 145/71; PULSE 92; RESP 18; TEMP 37.1; O2SAT 98
[2024-11-06] MEDS: Albuterol Sulfate 90 MCG 8 GM INHALER 2 PUFF INHALE ×3 (06:16→22:41)
--- NOTE | 2024-11-06 07:28 | P.PNPSI_ITS ---
Subjective Subjective Date of Service: 11/06/24 Reason For Visit: Psychosis Interim History: Met with patient. Discussed with nursing. Overall much less manic and intrusive. Bright. Speech less pressured and tangential. No overt grandiosity or psychosis. Remains eager for discharge but easily redirected to discussing with primary team after the weekend. Sleep okay. Adherent with medications Medication Compliance: Yes Side effects from medications: No Attending Groups: Yes Review of Systems Acute medical concerns: No Review of Systems Review of Systems unremarkable Mental Status Exam Mental Status Exam Patient Appearance: Appropriate Patient Orientation: Person, Place and Situation Level of Consciousness: Alert Patient Behavior: Talkative and Good Eye Contact Mood Description: Euphoric ( lessening), Happy and Labile (lessening) Affect Description: Labile Patient Cognition Impaired: No Ability to Follow Directions: Fair Speech Pattern: Spontaneous Speech Memory Description: Remote Impaired Diagnostics Vital Signs (24Hr): Vital Signs - 24 hr 11/05/24 08:00 11/05/24 21:45 Temperature 98.4 F 98.8 F Pulse Rate 108 H 92 Respiratory Rate 20 18 Blood Pressure 148/57 H 145/71 H Pulse Oximetry 99 98 Oxygen Delivery Method Room Air Room Air BMI result Body Mass Index 37.3 Labs 10/25/24 20:04 10/28/24 08:28 Medications Medications Current Medications Acetaminophen (Acetaminophen 325 Mg Tablet) 650 mg PO Q6H PRN PRN Reason: Headache/Pain, Scale 1-10 Last Admin: 11/06/24 06:29 Dose: 650 mg Al Hydroxide/Mg Hydroxide (Magnesium Hydrox/Alum Hydrox 30 Ml Oral.Susp) 30 ml PO Q6H PRN PRN Reason: Heartburn/Nausea Last Admin: 11/01/24 12:35 Dose: 30 ml Albuterol Sulfate (Albuterol Sulfate 90 Mcg 8 Gm Inhaler) 2 puff INHALE QID PRN PRN Reason: Shortness Of Breath Last Admin: 11/06/24 06:16 Dose: 2 puff Diphenhydramine HCl (Diphenhydramine Hcl 25 Mg Capsule) 50 mg PO QID PRN PRN Reason: Allergy symptoms Last Admin: 11/06/24 07:04 Dose: 50 mg Hydroxyzine HCl (Hydroxyzine Hcl 25 Mg Tablet) 25 mg PO Q6H PRN PRN Reason: mild anxiety Last Admin: 11/05/24 12:55 Dose: 25 mg Ibuprofen (Ibuprofen 400 Mg Tablet) 400 mg PO QID PRN PRN Reason: Pain, Moderate(Pain Scale 4-6) Last Admin: 11/05/24 21:20 Dose: 400 mg Lorazepam (Lorazepam 1 Mg Tablet) 1 mg PO TID PRN PRN Reason: severe anxiety/agitation Last Admin: 11/05/24 21:19 Dose: 1 mg Magnesium Hydroxide (Milk Of Magnesia 30 Ml Oral.Susp) 30 ml PO DAILY PRN PRN Reason: Constipation Last Admin: 11/03/24 15:09 Dose: 30 ml Nicotine Polacrilex (Nicotine Polacrilex 2 Mg Gum) 4 mg BUCCAL Q2H PRN PRN Reason: Nicotine Cravings Last Admin: 11/03/24 17:29 Dose: 2 mg Olanzapine (Olanzapine Odt 10 Mg Tab.Rapdis) 10 mg TRANSLINGU Q4H PRN PRN Reason: agitation Last Admin: 10/31/24 14:19 Dose: 10 mg Trazodone HCl (Trazodone Hcl 50 Mg Tablet) 50 mg PO BEDTIME MRX1 PRN PRN Reason: Insomnia Last Admin: 11/05/24 21:19 Dose: 50 mg Ziprasidone (Ziprasidone 80 Mg Capsule) 80 mg PO BID NATALIA Last Admin: 11/05/24 21:19 Dose: 80 mg Allergies Allergies Allergy/AdvReac Type Severity Reaction Status Date / Time animal dander (PET DANDER) Allergy Unknown Itching Verified 10/23/24 13:51 bee pollen (BEE STINGS) Allergy Unknown Swelling Verified 10/23/24 13:51 house dust Allergy Unknown Unknown Verified 10/23/24 13:51 shellfish derived (SHELLFISH Allergy Unknown Swelling Verified 10/23/24 13:51 DERIVED) Seasonal Allergies Allergy Itching Verified 10/23/24 13:51 Assessment & Plan Assessment & Plan (1) Bipolar 1 disorder: Status: Acute Code(s): F31.9 - Bipolar disorder, unspecified Assessment and Plan: 39-year-old female with history of schizoaffective disorder, bipolar disorder, and PTSD presented to [facility] on 10/23/2024 via EMS, after her family reported manic and self-harming/bizarre behaviors, and medication noncompliance. On interview with this provider, patient stated her family brought her to the hospital for housing. She states that she has been homeless and sleeping on concrete floor on the streets for the past 2 years. She notes that she is on medications, including trazodone and Geodon which were helpful but has not taking them she she ran out of refills about 2 months ago. She states that she usually sleeps well and does not recall being sleep deprived. She currently feels ?enlightened and happy.? She was tearful as she explained that her nephew in her arms a long time ago and that her 21-year-old daughter earlier this year. She was notified about her daughter's by a family member. She wants to leave today to see her daughter's grave that she has not been able to see. She currently denies depression, anxiety, SI, HI, AH, VH. She notes that she consumes 1 edible and smokes a blunt of cannabis daily. She smokes half a pack of cigarettes daily. She drinks 1 nip of vodka daily. She denies other illicit drugs. She is disorganized, disruptive, and internally preoccupied during the interview. Formulation/Clinical reasoning: Bipolar 1 disorder: Patient is currently exhibited symptoms of bipolar 1 disorder which is likely due to medication noncompliance. Her medications have been reconciled and restarted. Continue current treatment regimen. Plan Admit to M5. 12b - 15 minutes check. Diagnostics as needed. Collateral contact. Continue remainder of regime. Encouraged full milieu. Discharge planning. 10/29: Increase Geodon to 60 mg bid 10/30: Continue current management and treatment plan. 10/31: Continue current management and treatment plan. 11/04: Continue tx 11/06/2024: Continue current treatment plan Reason for continued inpatient stay Substantial Risk for: rapid decompensation Time Spent With Patient Time: Total time managing care of this patient today ____ minutes.
[2024-11-06 08:00] VITALS: BP 156/82; PULSE 105; RESP 18; TEMP 37.1; O2SAT 100
[2024-11-06 20:00] VITALS: BP 151/93; PULSE 95; TEMP 36.1; O2SAT 100
[2024-11-07 08:00] VITALS: BP 146/65; PULSE 99; RESP 18; TEMP 36.9; O2SAT 96
[2024-11-07] MEDS: Albuterol Sulfate 90 MCG 8 GM INHALER 2 PUFF INHALE (09:32)
--- NOTE | 2024-11-07 11:03 | HO.PSYCHPN ---
Subjective Subjective Date of Service: 11/07/24 Reason For Visit: Psychosis Interim History: Met with patient. Discussed with nursing. Overall hypomanic (not manic), bright, less pressured and tangential. No overt grandiosity or psychosis. Remains eager for discharge but easily redirected to discussing with primary team after the weekend. Sleep okay. Adherent with medications Medication Compliance: Yes Side effects from medications: No Attending Groups: Intermittent Review of Systems Acute medical concerns: No Review of Systems Review of Systems unremarkable Mental Status Exam Mental Status Exam Patient Appearance: Appropriate Patient Orientation: Person, Place and Situation Level of Consciousness: Alert Patient Behavior: Talkative (less) and Good Eye Contact Mood Description: Euphoric ( lessening), Happy and Labile (lessening) Affect Description: Labile Patient Cognition Impaired: No Ability to Follow Directions: Fair Speech Pattern: Spontaneous Speech Memory Description: Remote Impaired Diagnostics Vital Signs (24Hr): Vital Signs - 24 hr 11/06/24 20:00 11/07/24 08:00 Temperature 96.9 F 98.5 F Pulse Rate 95 99 Respiratory Rate 18 Blood Pressure 151/93 H 146/65 H Pulse Oximetry 100 96 Oxygen Delivery Method Room Air Room Air BMI result Body Mass Index 37.3 Labs 10/25/24 20:04 10/28/24 08:28 Medications Medications Current Medications Acetaminophen (Acetaminophen 325 Mg Tablet) 650 mg PO Q6H PRN PRN Reason: Headache/Pain, Scale 1-10 Last Admin: 11/06/24 06:29 Dose: 650 mg Al Hydroxide/Mg Hydroxide (Magnesium Hydrox/Alum Hydrox 30 Ml Oral.Susp) 30 ml PO Q6H PRN PRN Reason: Heartburn/Nausea Last Admin: 11/01/24 12:35 Dose: 30 ml Albuterol Sulfate (Albuterol Sulfate 90 Mcg 8 Gm Inhaler) 2 puff INHALE QID PRN PRN Reason: Shortness Of Breath Last Admin: 11/07/24 09:32 Dose: 2 puff Diphenhydramine HCl (Diphenhydramine Hcl 25 Mg Capsule) 50 mg PO QID PRN PRN Reason: Allergy symptoms Last Admin: 11/06/24 10:05 Dose: 50 mg Hydroxyzine HCl (Hydroxyzine Hcl 25 Mg Tablet) 25 mg PO Q6H PRN PRN Reason: mild anxiety Last Admin: 11/06/24 09:31 Dose: 25 mg Ibuprofen (Ibuprofen 400 Mg Tablet) 400 mg PO QID PRN PRN Reason: Pain, Moderate(Pain Scale 4-6) Last Admin: 11/06/24 09:31 Dose: 400 mg Magnesium Hydroxide (Milk Of Magnesia 30 Ml Oral.Susp) 30 ml PO DAILY PRN PRN Reason: Constipation Last Admin: 11/03/24 15:09 Dose: 30 ml Nicotine Polacrilex (Nicotine Polacrilex 2 Mg Gum) 4 mg BUCCAL Q2H PRN PRN Reason: Nicotine Cravings Last Admin: 11/03/24 17:29 Dose: 2 mg Olanzapine (Olanzapine Odt 10 Mg Tab.Rapdis) 10 mg TRANSLINGU Q4H PRN PRN Reason: agitation Last Admin: 10/31/24 14:19 Dose: 10 mg Trazodone HCl (Trazodone Hcl 50 Mg Tablet) 50 mg PO BEDTIME MRX1 PRN PRN Reason: Insomnia Last Admin: 11/06/24 21:50 Dose: 50 mg Ziprasidone (Ziprasidone 80 Mg Capsule) 80 mg PO BID NATALIA Last Admin: 11/07/24 08:16 Dose: 80 mg Allergies Allergies Allergy/AdvReac Type Severity Reaction Status Date / Time animal dander (PET DANDER) Allergy Unknown Itching Verified 10/23/24 13:51 bee pollen (BEE STINGS) Allergy Unknown Swelling Verified 10/23/24 13:51 house dust Allergy Unknown Unknown Verified 10/23/24 13:51 shellfish derived (SHELLFISH Allergy Unknown Swelling Verified 10/23/24 13:51 DERIVED) Seasonal Allergies Allergy Itching Verified 10/23/24 13:51 Assessment & Plan Assessment & Plan (1) Bipolar 1 disorder: Status: Acute Code(s): F31.9 - Bipolar disorder, unspecified Assessment and Plan: 39-year-old female with history of schizoaffective disorder, bipolar disorder, and PTSD [place] [facility] [place] via EMS, after her family reported manic and self-harming/bizarre behaviors, and medication noncompliance. On interview with this provider, patient stated her family brought her to the hospital for housing. She states that she has been homeless and sleeping on concrete floor on the streets for the past 2 years. She notes that she is on medications, including trazodone and Geodon which were helpful but has not taking them she she ran out of refills about 2 months ago. She states that she usually sleeps well and does not recall being sleep deprived. She currently feels ?enlightened and happy.? She was tearful as she explained that her nephew in her arms a long time ago and that her 21-year-old daughter earlier this year. She was notified about her daughter's by a family member. She wants to leave today to see her daughter's grave that she has not been able to see. She currently denies depression, anxiety, SI, HI, AH, VH. She notes that she consumes 1 edible and smokes a blunt of cannabis daily. She smokes half a pack of cigarettes daily. She drinks 1 nip of vodka daily. She denies other illicit drugs. She is disorganized, disruptive, and internally preoccupied during the interview. Formulation/Clinical reasoning: Bipolar 1 disorder: Patient is currently exhibited symptoms of bipolar 1 disorder which is likely due to medication noncompliance. Her medications have been reconciled and restarted. Continue current treatment regimen. Plan Admit to M5. 12b - 15 minutes check. Diagnostics as needed. Collateral contact. Continue remainder of regime. Encouraged full milieu. Discharge planning. 10/29: Increase Geodon to 60 mg bid 10/30: Continue current management and treatment plan. 10/31: Continue current management and treatment plan. 11/04: Continue tx 11/06/2024: Continue current treatment plan 11/07: no changes Reason for continued inpatient stay Substantial Risk for: rapid decompensation Time Spent With Patient Time: Total time managing care of this patient today ____ minutes.
[2024-11-07 20:00] VITALS: BP 155/90; PULSE 92; RESP 16; TEMP 36.4; O2SAT 100
[2024-11-08 08:00] VITALS: BP 152/87; PULSE 96; RESP 16; TEMP 36.9; O2SAT 98
[2024-11-08] MEDS: Albuterol Sulfate 90 MCG 8 GM INHALER 2 PUFF INHALE (08:38)
--- NOTE | 2024-11-08 09:40 | P.PNPSI_ITS ---
Subjective Subjective Date of Service: 11/08/24 Reason For Visit: Psychosis Subjective Notes: Section 7 Healthcare Proxy: No Guardianship: No Medical Problems Affecting Mental Status: No Interim History: Team note some decline in presentation with lability, increase in self- dialoguing, writing on her arms, behavioral distortions. Court extended to 11/16. Pt labile, bright, singing to headphones. Denies all sx. Team reports inappropriate exposure of self in her room x1 when checks were completed. Medication Compliance: Yes Side effects from medications: No Attending Groups: Intermittent Review of Systems Acute medical concerns: No Medical Review of Systems: unchanged Review of Systems Review of Systems Denies Mental Status Exam Mental Status Exam Patient Appearance: Disheveled Patient Orientation: Person, Place and Situation Level of Consciousness: Alert Patient Behavior: Talkative, Hyperactive, Restless, Wandering, Distractible and Good Eye Contact Mood Description: Labile Affect Description: Labile Patient Cognition Impaired: No Ability to Follow Directions: Fair Speech Pattern: Spontaneous Speech Memory Description: Episodic Impaired Hallucinations: Auditory (??, yet denies) Delusions: Present Thought Process: Illogical and Distracted Depressive Symptoms: Difficulty Concentrating Abnormal Motor Activity Signs and Symptoms: Restlessness Judgement: Poor Diagnostics Vital Signs (24Hr): Vital Signs - 24 hr 11/07/24 20:00 11/08/24 08:00 Temperature 97.6 F 98.4 F Pulse Rate 92 96 Respiratory Rate 16 16 Blood Pressure 155/90 H 152/87 H Pulse Oximetry 100 98 Oxygen Delivery Method Room Air Room Air BMI result Body Mass Index 37.3 Labs 10/25/24 20:04 10/28/24 08:28 Medications Medications Current Medications Acetaminophen (Acetaminophen 325 Mg Tablet) 650 mg PO Q6H PRN PRN Reason: Headache/Pain, Scale 1-10 Last Admin: 11/06/24 06:29 Dose: 650 mg Al Hydroxide/Mg Hydroxide (Magnesium Hydrox/Alum Hydrox 30 Ml Oral.Susp) 30 ml PO Q6H PRN PRN Reason: Heartburn/Nausea Last Admin: 11/01/24 12:35 Dose: 30 ml Albuterol Sulfate (Albuterol Sulfate 90 Mcg 8 Gm Inhaler) 2 puff INHALE QID PRN PRN Reason: Shortness Of Breath Last Admin: 11/08/24 08:38 Dose: 2 puff Diphenhydramine HCl (Diphenhydramine Hcl 25 Mg Capsule) 50 mg PO QID PRN PRN Reason: Allergy symptoms Last Admin: 11/06/24 10:05 Dose: 50 mg Hydroxyzine HCl (Hydroxyzine Hcl 25 Mg Tablet) 25 mg PO Q6H PRN PRN Reason: mild anxiety Last Admin: 11/06/24 09:31 Dose: 25 mg Ibuprofen (Ibuprofen 400 Mg Tablet) 400 mg PO QID PRN PRN Reason: Pain, Moderate(Pain Scale 4-6) Last Admin: 11/07/24 22:24 Dose: 400 mg Lorazepam (Lorazepam 1 Mg Tablet) 1 mg PO TID PRN PRN Reason: severe anxiety Last Admin: 11/07/24 22:13 Dose: 1 mg Magnesium Hydroxide (Milk Of Magnesia 30 Ml Oral.Susp) 30 ml PO DAILY PRN PRN Reason: Constipation Last Admin: 11/03/24 15:09 Dose: 30 ml Nicotine Polacrilex (Nicotine Polacrilex 2 Mg Gum) 4 mg BUCCAL Q2H PRN PRN Reason: Nicotine Cravings Last Admin: 11/03/24 17:29 Dose: 2 mg Olanzapine (Olanzapine Odt 10 Mg Tab.Rapdis) 10 mg TRANSLINGU Q4H PRN PRN Reason: agitation Last Admin: 10/31/24 14:19 Dose: 10 mg Trazodone HCl (Trazodone Hcl 50 Mg Tablet) 50 mg PO BEDTIME MRX1 PRN PRN Reason: Insomnia Last Admin: 11/06/24 21:50 Dose: 50 mg Ziprasidone (Ziprasidone 80 Mg Capsule) 80 mg PO BID NATALIA Last Admin: 11/08/24 08:08 Dose: 80 mg Allergies Allergies Allergy/AdvReac Type Severity Reaction Status Date / Time animal dander (PET DANDER) Allergy Unknown Itching Verified 10/23/24 13:51 bee pollen (BEE STINGS) Allergy Unknown Swelling Verified 10/23/24 13:51 house dust Allergy Unknown Unknown Verified 10/23/24 13:51 shellfish derived (SHELLFISH Allergy Unknown Swelling Verified 10/23/24 13:51 DERIVED) Seasonal Allergies Allergy Itching Verified 10/23/24 13:51 Assessment & Plan Assessment & Plan (1) Bipolar 1 disorder: Status: Acute Code(s): F31.9 - Bipolar disorder, unspecified Assessment and Plan: 39-year-old female with history of schizoaffective disorder, bipolar disorder, and PTSD presented to [facility] on 10/23/2024 via EMS, after her family reported manic and self-harming/bizarre behaviors, and medication noncompliance. On interview with this provider, patient stated her family brought her to the hospital for housing. She states that she has been homeless and sleeping on concrete floor on the streets for the past 2 years. She notes that she is on medications, including trazodone and Geodon which were helpful but has not taking them she she ran out of refills about 2 months ago. She states that she usually sleeps well and does not recall being sleep deprived. She currently feels ?enlightened and happy.? She was tearful as she explained that her nephew in her arms a long time ago and that her 21-year-old daughter earlier this year. She was notified about her daughter's by a family member. She wants to leave today to see her daughter's grave that she has not been able to see. She currently denies depression, anxiety, SI, HI, AH, VH. She notes that she consumes 1 edible and smokes a blunt of cannabis daily. She smokes half a pack of cigarettes daily. She drinks 1 nip of vodka daily. She denies other illicit drugs. She is disorganized, disruptive, and internally preoccupied during the interview. Formulation/Clinical reasoning: Bipolar 1 disorder: Patient is currently exhibited symptoms of bipolar 1 disorder which is likely due to medication noncompliance. Her medications have been reconciled and restarted. Continue current treatment regimen. Plan Admit to M5. 12b - 15 minutes check. Diagnostics as needed. Collateral contact. Continue remainder of regime. Encouraged full milieu. Discharge planning. 10/29: Increase Geodon to 60 mg bid 10/30: Continue current management and treatment plan. 10/31: Continue current management and treatment plan. 11/04: Continue tx 11/06/2024: Continue current treatment plan 11/07: no changes 11/08: Add Olanzapine 5 mg bid to regime Court re-scheduled to 11/16/24. Reason for continued inpatient stay Substantial Risk for: rapid decompensation Time Spent With Patient Time: Total time managing care of this patient today ____ minutes.
[2024-11-08] MEDS: OLANZapine ODT 10 MG TAB.RAPDIS TRANSLINGU (15:28)
[2024-11-08 20:00] VITALS: BP 134/71; PULSE 90; RESP 16; TEMP 36.6; O2SAT 98
[2024-11-09 08:00] VITALS: BP 151/90; PULSE 96; RESP 16; TEMP 36.7; O2SAT 97
--- NOTE | 2024-11-09 09:48 | HO.PSYCHPN ---
Subjective Subjective Date of Service: 11/09/24 Reason For Visit: Psychosis Subjective Notes: Section 7 Healthcare Proxy: No Guardianship: No Medical Problems Affecting Mental Status: No Interim History: Accepted a.m. Olanzapine-irritable and caustic by mid afternoon. Not approving of the choice of her cardio tech, given [facility] contact information however, loud, swearing, labile, irritable. Keep the money you b----. You are not intersted in my daughter's life, just money . Team reports awake at 440am. Calmer later in the afternoon. Court 11/16. Medication Compliance: Intermittent Side effects from medications: No Attending Groups: Intermittent Review of Systems Acute medical concerns: No Medical Review of Systems: unchanged Review of Systems Review of Systems no Mental Status Exam Mental Status Exam Patient Appearance: Disheveled Patient Orientation: Person, Place and Situation Level of Consciousness: Alert Patient Behavior: Talkative, Hyperactive, Restless, Wandering, Distractible and Good Eye Contact Mood Description: Labile Affect Description: Labile Patient Cognition Impaired: No Ability to Follow Directions: Fair Speech Pattern: Spontaneous Speech Memory Description: Episodic Impaired Hallucinations: Auditory (??, yet denies) Delusions: Present Thought Process: Illogical and Distracted Depressive Symptoms: Difficulty Concentrating Abnormal Motor Activity Signs and Symptoms: Restlessness Judgement: Poor Diagnostics Vital Signs (24Hr): Vital Signs - 24 hr 11/08/24 20:00 Temperature 97.8 F Pulse Rate 90 Respiratory Rate 16 Blood Pressure 134/71 Pulse Oximetry 98 Oxygen Delivery Method Room Air BMI result Body Mass Index 37.3 Labs 10/25/24 20:04 10/28/24 08:28 Medications Medications Current Medications Acetaminophen (Acetaminophen 325 Mg Tablet) 650 mg PO Q6H PRN PRN Reason: Headache/Pain, Scale 1-10 Last Admin: 11/08/24 15:20 Dose: 650 mg Al Hydroxide/Mg Hydroxide (Magnesium Hydrox/Alum Hydrox 30 Ml Oral.Susp) 30 ml PO Q6H PRN PRN Reason: Heartburn/Nausea Last Admin: 11/01/24 12:35 Dose: 30 ml Albuterol Sulfate (Albuterol Sulfate 90 Mcg 8 Gm Inhaler) 2 puff INHALE QID PRN PRN Reason: Shortness Of Breath Last Admin: 11/08/24 08:38 Dose: 2 puff Diphenhydramine HCl (Diphenhydramine Hcl 25 Mg Capsule) 50 mg PO QID PRN PRN Reason: Allergy symptoms Last Admin: 11/09/24 09:19 Dose: 50 mg Hydroxyzine HCl (Hydroxyzine Hcl 25 Mg Tablet) 25 mg PO Q6H PRN PRN Reason: mild anxiety Last Admin: 11/06/24 09:31 Dose: 25 mg Ibuprofen (Ibuprofen 400 Mg Tablet) 400 mg PO QID PRN PRN Reason: Pain, Moderate(Pain Scale 4-6) Last Admin: 11/08/24 09:54 Dose: 400 mg Lorazepam (Lorazepam 1 Mg Tablet) 1 mg PO TID PRN PRN Reason: severe anxiety Last Admin: 11/09/24 09:19 Dose: 1 mg Magnesium Hydroxide (Milk Of Magnesia 30 Ml Oral.Susp) 30 ml PO DAILY PRN PRN Reason: Constipation Last Admin: 11/03/24 15:09 Dose: 30 ml Nicotine Polacrilex (Nicotine Polacrilex 2 Mg Gum) 4 mg BUCCAL Q2H PRN PRN Reason: Nicotine Cravings Last Admin: 11/03/24 17:29 Dose: 2 mg Olanzapine (Olanzapine Odt 10 Mg Tab.Rapdis) 10 mg TRANSLINGU Q4H PRN PRN Reason: agitation Last Admin: 11/08/24 15:28 Dose: 10 mg Olanzapine (Olanzapine 5 Mg Tablet) 5 mg PO BID [facility] Last Admin: 11/09/24 09:20 Dose: 5 mg Trazodone HCl (Trazodone Hcl 50 Mg Tablet) 50 mg PO BEDTIME MRX1 PRN PRN Reason: Insomnia Last Admin: 11/06/24 21:50 Dose: 50 mg Ziprasidone (Ziprasidone 80 Mg Capsule) 80 mg PO 0900,1830 [facility] Last Admin: 11/09/24 09:20 Dose: 80 mg Allergies Allergies Allergy/AdvReac Type Severity Reaction Status Date / Time animal dander (PET DANDER) Allergy Unknown Itching Verified 10/23/24 13:51 bee pollen (BEE STINGS) Allergy Unknown Swelling Verified 10/23/24 13:51 house dust Allergy Unknown Unknown Verified 10/23/24 13:51 shellfish derived (SHELLFISH Allergy Unknown Swelling Verified 10/23/24 13:51 DERIVED) Seasonal Allergies Allergy Itching Verified 10/23/24 13:51 Assessment & Plan Assessment & Plan (1) Bipolar 1 disorder: Status: Acute Code(s): F31.9 - Bipolar disorder, unspecified Assessment and Plan: 39-year-old female with history of schizoaffective disorder, bipolar disorder, and PTSD presented to [facility] on 10/23/2024 via EMS, after her family reported manic and self-harming/bizarre behaviors, and medication noncompliance. On interview with this provider, patient stated her family brought her to the hospital for housing. She states that she has been homeless and sleeping on concrete floor on the streets for the past 2 years. She notes that she is on medications, including trazodone and Geodon which were helpful but has not taking them she she ran out of refills about 2 months ago. She states that she usually sleeps well and does not recall being sleep deprived. She currently feels ?enlightened and happy.? She was tearful as she explained that her nephew in her arms a long time ago and that her 21-year-old daughter earlier this year. She was notified about her daughter's by a family member. She wants to leave today to see her daughter's grave that she has not been able to see. She currently denies depression, anxiety, SI, HI, AH, VH. She notes that she consumes 1 edible and smokes a blunt of cannabis daily. She smokes half a pack of cigarettes daily. She drinks 1 nip of vodka daily. She denies other illicit drugs. She is disorganized, disruptive, and internally preoccupied during the interview. Formulation/Clinical reasoning: Bipolar 1 disorder: Patient is currently exhibited symptoms of bipolar 1 disorder which is likely due to medication noncompliance. Her medications have been reconciled and restarted. Continue current treatment regimen. Plan Admit to M5. 12b - 15 minutes check. Diagnostics as needed. Collateral contact. Continue remainder of regime. Encouraged full milieu. Discharge planning. 10/29: Increase Geodon to 60 mg bid 10/30: Continue current management and treatment plan. 10/31: Continue current management and treatment plan. 11/04: Continue tx 11/06/2024: Continue current treatment plan 11/07: no changes 11/08: Add Olanzapine 5 mg bid to regime Court re-scheduled to 11/16/24. 11/09: Increase Olanzapine to 10 mg bid Geodon at max, not seemingly helpful given current presentation Reason for continued inpatient stay Substantial Risk for: rapid decompensation Time Spent With Patient Time: Total time managing care of this patient today ____ minutes.
[2024-11-09] MEDS: Albuterol Sulfate 90 MCG 8 GM INHALER 2 PUFF INHALE (15:02)
[2024-11-09] MEDS: OLANZapine ODT 10 MG TAB.RAPDIS TRANSLINGU (16:25)
[2024-11-09] MEDS: Magnesium Hydrox/Alum Hydrox 30 ML ORAL.SUSP PO (17:44)
[2024-11-09 20:00] VITALS: BP 167/96; PULSE 100; RESP 16; TEMP 36.7; O2SAT 98
--- NOTE | 2024-11-10 05:47 | PC.NURSE ---
Patient refused HS Zyprexa 10 mg ODT.
[2024-11-10 08:00] VITALS: BP 146/67; PULSE 98; RESP 16; TEMP 37.1; O2SAT 100
[2024-11-10] MEDS: OLANZapine ODT 10 MG TAB.RAPDIS TRANSLINGU ×4 (08:19→20:57)
--- NOTE | 2024-11-10 10:50 | P.PNPSI_ITS ---
Subjective Subjective Date of Service: 11/10/24 Reason For Visit: Psychosis Subjective Notes: Section 7 Healthcare Proxy: No Guardianship: No Medical Problems Affecting Mental Status: No Interim History: Refused Olanzapine. Refusing prn and scheduled meds. Continues with agitation, loud outbursts Team reports disrobing in group 7/ evening. Able to accept redirection well and put clothing back on. What is the update on housing? I am here so you can find me a home. Discussed with pt that she had reported she had secure housing on [address]. That is my friends home- I can stay there, but it is not my house. Your job is to find me a house. Medication Compliance: Intermittent Side effects from medications: No Attending Groups: No Review of Systems Review of Systems I feel fine Mental Status Exam Mental Status Exam Patient Appearance: Disheveled Patient Orientation: Person, Place and Situation Level of Consciousness: Alert Patient Behavior: Talkative, Hyperactive, Restless, Wandering, Distractible and Good Eye Contact Mood Description: Labile Affect Description: Labile Patient Cognition Impaired: No Ability to Follow Directions: Fair Speech Pattern: Spontaneous Speech Memory Description: Episodic Impaired Hallucinations: Auditory (??, yet denies) Delusions: Present Thought Process: Illogical and Distracted Depressive Symptoms: Difficulty Concentrating Abnormal Motor Activity Signs and Symptoms: Restlessness Judgement: Poor Diagnostics Vital Signs (24Hr): Vital Signs - 24 hr 11/09/24 20:00 11/10/24 08:00 Temperature 98.1 F 98.8 F Pulse Rate 100 98 Respiratory Rate 16 16 Blood Pressure 167/96 H 146/67 H Pulse Oximetry 98 100 Oxygen Delivery Method Room Air BMI result Body Mass Index 37.3 Labs 10/25/24 20:04 10/28/24 08:28 Medications Medications Current Medications Acetaminophen (Acetaminophen 325 Mg Tablet) 650 mg PO Q6H PRN PRN Reason: Headache/Pain, Scale 1-10 Last Admin: 11/08/24 15:20 Dose: 650 mg Al Hydroxide/Mg Hydroxide (Magnesium Hydrox/Alum Hydrox 30 Ml Oral.Susp) 30 ml PO Q6H PRN PRN Reason: Heartburn/Nausea Last Admin: 11/09/24 17:44 Dose: 30 ml Albuterol Sulfate (Albuterol Sulfate 90 Mcg 8 Gm Inhaler) 2 puff INHALE QID PRN PRN Reason: Shortness Of Breath Last Admin: 11/09/24 15:02 Dose: 2 puff Diphenhydramine HCl (Diphenhydramine Hcl 25 Mg Capsule) 50 mg PO QID PRN PRN Reason: Allergy symptoms Last Admin: 11/10/24 08:22 Dose: 50 mg Hydroxyzine HCl (Hydroxyzine Hcl 25 Mg Tablet) 25 mg PO Q6H PRN PRN Reason: mild anxiety Last Admin: 11/10/24 08:22 Dose: 25 mg Ibuprofen (Ibuprofen 400 Mg Tablet) 400 mg PO QID PRN PRN Reason: Pain, Moderate(Pain Scale 4-6) Last Admin: 11/08/24 09:54 Dose: 400 mg Lorazepam (Lorazepam 1 Mg Tablet) 1 mg PO TID PRN PRN Reason: severe anxiety Last Admin: 11/10/24 08:22 Dose: 1 mg Magnesium Hydroxide (Milk Of Magnesia 30 Ml Oral.Susp) 30 ml PO DAILY PRN PRN Reason: Constipation Last Admin: 11/03/24 15:09 Dose: 30 ml Nicotine Polacrilex (Nicotine Polacrilex 2 Mg Gum) 4 mg BUCCAL Q2H PRN PRN Reason: Nicotine Cravings Last Admin: 11/03/24 17:29 Dose: 2 mg Olanzapine (Olanzapine Odt 10 Mg Tab.Rapdis) 10 mg TRANSLINGU Q4H PRN PRN Reason: agitation Last Admin: 11/10/24 08:22 Dose: 10 mg Olanzapine (Olanzapine Odt 10 Mg Tab.Rapdis) 10 mg TRANSLINGU BID NATALIA Last Admin: 11/10/24 08:19 Dose: 10 mg Trazodone HCl (Trazodone Hcl 50 Mg Tablet) 50 mg PO BEDTIME MRX1 PRN PRN Reason: Insomnia Last Admin: 11/06/24 21:50 Dose: 50 mg Ziprasidone (Ziprasidone 80 Mg Capsule) 80 mg PO 0900,1830 [facility] Last Admin: 11/09/24 17:25 Dose: 80 mg Allergies Allergies Allergy/AdvReac Type Severity Reaction Status Date / Time animal dander (PET DANDER) Allergy Unknown Itching Verified 10/23/24 13:51 bee pollen (BEE STINGS) Allergy Unknown Swelling Verified 10/23/24 13:51 house dust Allergy Unknown Unknown Verified 10/23/24 13:51 shellfish derived (SHELLFISH Allergy Unknown Swelling Verified 10/23/24 13:51 DERIVED) Seasonal Allergies Allergy Itching Verified 10/23/24 13:51 Assessment & Plan Assessment & Plan (1) Bipolar 1 disorder: Status: Acute Code(s): F31.9 - Bipolar disorder, unspecified Assessment and Plan: 39-year-old female with history of schizoaffective disorder, bipolar disorder, and PTSD presented to [facility] on 10/23/2024 via EMS, after her family reported manic and self-harming/bizarre behaviors, and medication noncompliance. On interview with this provider, patient stated her family brought her to the hospital for housing. She states that she has been homeless and sleeping on concrete floor on the streets for the past 2 years. She notes that she is on medications, including trazodone and Geodon which were helpful but has not taking them she she ran out of refills about 2 months ago. She states that she usually sleeps well and does not recall being sleep deprived. She currently feels ?enlightened and happy.? She was tearful as she explained that her nephew in her arms a long time ago and that her 21-year-old daughter earlier this year. She was notified about her daughter's by a family member. She wants to leave today to see her daughter's grave that she has not been able to see. She currently denies depression, anxiety, SI, HI, AH, VH. She notes that she consumes 1 edible and smokes a blunt of cannabis daily. She smokes half a pack of cigarettes daily. She drinks 1 nip of vodka daily. She denies other illicit drugs. She is disorganized, disruptive, and internally preoccupied during the interview. Formulation/Clinical reasoning: Bipolar 1 disorder: Patient is currently exhibited symptoms of bipolar 1 disorder which is likely due to medication noncompliance. Her medications have been reconciled and restarted. Continue current treatment regimen. Plan Admit to M5. 12b - 15 minutes check. Diagnostics as needed. Collateral contact. Continue remainder of regime. Encouraged full milieu. Discharge planning. 10/29: Increase Geodon to 60 mg bid 10/30: Continue current management and treatment plan. 10/31: Continue current management and treatment plan. 11/04: Continue tx 11/06/2024: Continue current treatment plan 11/07: no changes 11/08: Add Olanzapine 5 [address] bid to regime [address] re-scheduled to 11/16/24. 11/10: Continue tx Change olanzapine to 10 mg bid Reason for continued inpatient stay Substantial Risk for: rapid decompensation Time Spent With Patient Time: Total time managing care of this patient today ____ minutes.
[2024-11-10] MEDS: Albuterol Sulfate 90 MCG 8 GM INHALER 2 PUFF INHALE (15:56)
[2024-11-10 20:00] VITALS: BP 151/100; PULSE 112; RESP 18; TEMP 37.1; O2SAT 99
[2024-11-11 07:00] VITALS: BMI 38.0
[2024-11-11 08:00] VITALS: BP 145/79; PULSE 100; RESP 16; TEMP 37.1; O2SAT 97
--- NOTE | 2024-11-11 09:30 | P.PNPSI_ITS ---
Subjective Subjective Date of Service: 11/11/24 Reason For Visit: Psychosis Subjective Notes: Section 7 Interim History: Verbally caustic. Discussed med changes. Haldol 5 mg bid added to Olanzapine Geodon discontinued-ineffective at maximum dose Discussed needing help with housing-[employer] she has connected with. Frustrated that she has been unable to get food stamps Also frustrated that brother has not been in contact. Asks about her plan of care. Discussed symptom stabilization, medicine stabilization, aftercare planning, which she reports she agrees with. Medication Compliance: Intermittent Side effects from medications: No Attending Groups: No Review of Systems Acute medical concerns: No Review of Systems Review of Systems Denies Mental Status Exam Mental Status Exam Patient Appearance: Disheveled Patient Orientation: Person, Place and Situation Level of Consciousness: Alert Patient Behavior: Talkative, Hyperactive, Restless, Wandering, Distractible and Good Eye Contact Mood Description: Labile Affect Description: Labile Patient Cognition Impaired: No Ability to Follow Directions: Fair Speech Pattern: Spontaneous Speech Memory Description: Episodic Impaired Hallucinations: Auditory (??, yet denies) Delusions: Present Thought Process: Illogical and Distracted Depressive Symptoms: Difficulty Concentrating Abnormal Motor Activity Signs and Symptoms: Restlessness Judgement: Poor Diagnostics Vital Signs (24Hr): Vital Signs - 24 hr 11/10/24 20:00 Temperature 98.7 F Pulse Rate 112 H Respiratory Rate 18 Blood Pressure 151/100 H Pulse Oximetry 99 Oxygen Delivery Method Room Air BMI result Body Mass Index 37.3 Labs 10/25/24 20:04 10/28/24 08:28 Medications Medications Current Medications Acetaminophen (Acetaminophen 325 Mg Tablet) 650 mg PO Q6H PRN PRN Reason: Headache/Pain, Scale 1-10 Last Admin: 11/08/24 15:20 Dose: 650 mg Al Hydroxide/Mg Hydroxide (Magnesium Hydrox/Alum Hydrox 30 Ml Oral.Susp) 30 ml PO Q6H PRN PRN Reason: Heartburn/Nausea Last Admin: 11/09/24 17:44 Dose: 30 ml Albuterol Sulfate (Albuterol Sulfate 90 Mcg 8 Gm Inhaler) 2 puff INHALE QID PRN PRN Reason: Shortness Of Breath Last Admin: 11/10/24 15:56 Dose: 2 puff Diphenhydramine HCl (Diphenhydramine Hcl 25 Mg Capsule) 50 mg PO QID PRN PRN Reason: Allergy symptoms Last Admin: 11/10/24 15:54 Dose: 50 mg Haloperidol (Haloperidol 5 Mg Tablet) 5 mg PO BID NATALIA Hydroxyzine HCl (Hydroxyzine Hcl 25 Mg Tablet) 25 mg PO Q6H PRN PRN Reason: mild anxiety Last Admin: 11/10/24 15:54 Dose: 25 mg Ibuprofen (Ibuprofen 400 Mg Tablet) 400 mg PO QID PRN PRN Reason: Pain, Moderate(Pain Scale 4-6) Last Admin: 11/10/24 20:58 Dose: 400 mg Lorazepam (Lorazepam 1 Mg Tablet) 1 mg PO TID PRN PRN Reason: severe anxiety Last Admin: 11/10/24 20:58 Dose: 1 mg Magnesium Hydroxide (Milk Of Magnesia 30 Ml Oral.Susp) 30 ml PO DAILY PRN PRN Reason: Constipation Last Admin: 11/03/24 15:09 Dose: 30 ml Nicotine Polacrilex (Nicotine Polacrilex 2 Mg Gum) 4 mg BUCCAL Q2H PRN PRN Reason: Nicotine Cravings Last Admin: 11/03/24 17:29 Dose: 2 mg Olanzapine (Olanzapine Odt 10 Mg Tab.Rapdis) 10 mg TRANSLINGU Q4H PRN PRN Reason: agitation Last Admin: 11/10/24 15:55 Dose: 10 mg Olanzapine (Olanzapine Odt 10 Mg Tab.Rapdis) 10 mg TRANSLINGU BID NATALIA Last Admin: 11/10/24 20:57 Dose: 10 mg Trazodone HCl (Trazodone Hcl 50 Mg Tablet) 50 mg PO BEDTIME MRX1 PRN PRN Reason: Insomnia Last Admin: 11/10/24 20:58 Dose: 50 mg Allergies Allergies Allergy/AdvReac Type Severity Reaction Status Date / Time animal dander (PET DANDER) Allergy Unknown Itching Verified 10/23/24 13:51 bee pollen (BEE STINGS) Allergy Unknown Swelling Verified 10/23/24 13:51 house dust Allergy Unknown Unknown Verified 10/23/24 13:51 shellfish derived (SHELLFISH Allergy Unknown Swelling Verified 10/23/24 13:51 DERIVED) Seasonal Allergies Allergy Itching Verified 10/23/24 13:51 Assessment & Plan Assessment & Plan (1) Bipolar 1 disorder: Status: Acute Code(s): F31.9 - Bipolar disorder, unspecified Assessment and Plan: 39-year-old female with history of schizoaffective disorder, bipolar disorder, and PTSD presented to [facility] on 10/23/2024 via EMS, after her family reported manic and self-harming/bizarre behaviors, and medication noncompliance. On interview with this provider, patient stated her family brought her to the hospital for housing. She states that she has been homeless and sleeping on concrete floor on the streets for the past 2 years. She notes that she is on medications, including trazodone and Geodon which were helpful but has not taking them she she ran out of refills about 2 months ago. She states that she usually sleeps well and does not recall being sleep deprived. She currently feels ?enlightened and happy.? She was tearful as she explained that her nephew in her arms a long time ago and that her 21-year-old daughter earlier this year. She was notified about her daughter's by a family member. She wants to leave today to see her daughter's grave that she has not been able to see. She currently denies depression, anxiety, SI, HI, AH, VH. She notes that she consumes 1 edible and smokes a blunt of cannabis daily. She smokes half a pack of cigarettes daily. She drinks 1 nip of vodka daily. She denies other illicit drugs. She is disorganized, disruptive, and internally preoccupied during the interview. Formulation/Clinical reasoning: Bipolar 1 disorder: Patient is currently exhibited symptoms of bipolar 1 disorder which is likely due to medication noncompliance. Her medications have been reconciled and restarted. Continue current treatment regimen. Plan Admit to . 12b - 15 minutes check. Diagnostics as needed. Collateral contact. Continue remainder of regime. Encouraged full milieu. Discharge planning. 10/29: Increase Geodon to 60 mg bid 10/30: Continue current management and treatment plan. 10/31: Continue current management and treatment plan. 11/04: Continue tx 11/06/2024: Continue current treatment plan 11/07: no changes 11/08: Add Olanzapine 5 mg bid to regime Court re-scheduled to 11/16/24. 11/11: DC Geodon-ineffective at maximum dosing Continue Olanzapine Haldol 5 mg bid Reason for continued inpatient stay Substantial Risk for: rapid decompensation Time Spent With Patient Time: Total time managing care of this patient today ____ minutes.
[2024-11-11] MEDS: OLANZapine ODT 10 MG TAB.RAPDIS TRANSLINGU ×3 (10:13→20:53)
[2024-11-11 20:00] VITALS: BP 145/82; PULSE 127; TEMP 36.7; O2SAT 97
[2024-11-12] MEDS: OLANZapine ODT 10 MG TAB.RAPDIS TRANSLINGU ×3 (04:05→20:45)
[2024-11-12] MEDS: Albuterol Sulfate 90 MCG 8 GM INHALER 2 PUFF INHALE ×4 (04:06→20:44)
[2024-11-12 08:23] VITALS: BP 146/84; PULSE 99; TEMP 36.8; O2SAT 100
--- NOTE | 2024-11-12 10:37 | P.PNPSI_ITS ---
Subjective Subjective Date of Service: 11/12/24 Reason For Visit: Psychosis Subjective Notes: Section 7 Healthcare Proxy: No Guardianship: No Medical Problems Affecting Mental Status: No Interim History: Lisandra accepting of Olanzapine/Haldol. Reports understanding of Geodon discontinuation due to inefficacy. Denies SE, Denies feeling overmedicated. Presents with labile, hypomanic sx- singing, dancing, some disinhibited comments-angry at times-directed at anyone- with tw she is focused on doctors making millions and my daughter does not have enough money and I cannot find my brother. Will begin low dose Valproate at HS. Medication Compliance: Yes Side effects from medications: No Attending Groups: No Review of Systems Acute medical concerns: No Review of Systems Review of Systems I feel fine thank you Mental Status Exam Mental Status Exam Patient Appearance: Disheveled Patient Orientation: Person, Place and Situation Level of Consciousness: Alert Patient Behavior: Talkative, Hyperactive, Restless, Wandering, Distractible and Good Eye Contact Mood Description: Labile Affect Description: Labile Patient Cognition Impaired: No Ability to Follow Directions: Fair Speech Pattern: Spontaneous Speech Memory Description: Episodic Impaired Hallucinations: Auditory (??, yet denies) Delusions: Present Thought Process: Illogical and Distracted Depressive Symptoms: Difficulty Concentrating Abnormal Motor Activity Signs and Symptoms: Restlessness Judgement: Poor Diagnostics Vital Signs (24Hr): Vital Signs - 24 hr 11/11/24 20:00 11/12/24 08:23 Temperature 98.1 F 98.2 F Pulse Rate 127 H 99 Blood Pressure 145/82 H 146/84 H Pulse Oximetry 97 100 Oxygen Delivery Method Room Air Room Air BMI result Body Mass Index 38.0 Labs 10/25/24 20:04 10/28/24 08:28 Medications Medications Current Medications Acetaminophen (Acetaminophen 325 Mg Tablet) 650 mg PO Q6H PRN PRN Reason: Headache/Pain, Scale 1-10 Last Admin: 11/08/24 15:20 Dose: 650 mg Al Hydroxide/Mg Hydroxide (Magnesium Hydrox/Alum Hydrox 30 Ml Oral.Susp) 30 ml PO Q6H PRN PRN Reason: Heartburn/Nausea Last Admin: 11/09/24 17:44 Dose: 30 ml Albuterol Sulfate (Albuterol Sulfate 90 Mcg 8 Gm Inhaler) 2 puff INHALE QID PRN PRN Reason: Shortness Of Breath Last Admin: 11/12/24 08:53 Dose: 2 puff Diphenhydramine HCl (Diphenhydramine Hcl 25 Mg Capsule) 50 mg PO QID PRN PRN Reason: Allergy symptoms Last Admin: 11/11/24 17:48 Dose: 50 mg Haloperidol (Haloperidol 5 Mg Tablet) 5 mg PO BID [facility] Last Admin: 11/12/24 08:53 Dose: 5 mg Hydroxyzine HCl (Hydroxyzine Hcl 25 Mg Tablet) 25 mg PO Q6H PRN PRN Reason: mild anxiety Last Admin: 11/11/24 10:13 Dose: 25 mg Ibuprofen (Ibuprofen 400 Mg Tablet) 400 mg PO QID PRN PRN Reason: Pain, Moderate(Pain Scale 4-6) Last Admin: 11/10/24 20:58 Dose: 400 mg Lorazepam (Lorazepam 1 Mg Tablet) 1 mg PO TID PRN PRN Reason: severe anxiety Last Admin: 11/12/24 04:05 Dose: 1 mg Magnesium Hydroxide (Milk Of Magnesia 30 Ml Oral.Susp) 30 ml PO DAILY PRN PRN Reason: Constipation Last Admin: 11/03/24 15:09 Dose: 30 ml Nicotine Polacrilex (Nicotine Polacrilex 2 Mg Gum) 4 mg BUCCAL Q2H PRN PRN Reason: Nicotine Cravings Last Admin: 11/03/24 17:29 Dose: 2 mg Olanzapine (Olanzapine Odt 10 Mg Tab.Rapdis) 10 mg TRANSLINGU Q4H PRN PRN Reason: agitation Last Admin: 11/12/24 04:05 Dose: 10 mg Olanzapine (Olanzapine Odt 10 Mg Tab.Rapdis) 10 mg TRANSLINGU BID [facility] Last Admin: 11/12/24 08:53 Dose: 10 mg Trazodone HCl (Trazodone Hcl 50 Mg Tablet) 50 mg PO BEDTIME MRX1 PRN PRN Reason: Insomnia Last Admin: 11/11/24 20:54 Dose: 50 mg Allergies Allergies Allergy/AdvReac Type Severity Reaction Status Date / Time animal dander (PET DANDER) Allergy Unknown Itching Verified 10/23/24 13:51 bee pollen (BEE STINGS) Allergy Unknown Swelling Verified 10/23/24 13:51 house dust Allergy Unknown Unknown Verified 10/23/24 13:51 shellfish derived (SHELLFISH Allergy Unknown Swelling Verified 10/23/24 13:51 DERIVED) Seasonal Allergies Allergy Itching Verified 10/23/24 13:51 Assessment & Plan Assessment & Plan (1) Bipolar 1 disorder: Status: Acute Code(s): F31.9 - Bipolar disorder, unspecified Assessment and Plan: 39-year-old female with history of schizoaffective disorder, bipolar disorder, and PTSD presented to [facility] [place] [facility] on 10/23/2024 via EMS, after her family reported manic and self-harming/bizarre behaviors, and medication noncompliance. On interview with this provider, patient stated her family brought her to the hospital for housing. She states that she has been homeless and sleeping on concrete floor on the streets for the past 2 years. She notes that she is on medications, including trazodone and Geodon which were helpful but has not taking them she she ran out of refills about 2 months ago. She states that she usually sleeps well and does not recall being sleep deprived. She currently feels ?enlightened and happy.? She was tearful as she explained that her nephew in her arms a long time ago and that her 21-year-old daughter earlier this year. She was notified about her daughter's by a family member. She wants to leave today to see her daughter's grave that she has not been able to see. She currently denies depression, anxiety, SI, HI, AH, VH. She notes that she consumes 1 edible and smokes a blunt of cannabis daily. She smokes half a pack of cigarettes daily. She drinks 1 nip of vodka daily. She denies other illicit drugs. She is disorganized, disruptive, and internally preoccupied during the interview. Formulation/Clinical reasoning: Bipolar 1 disorder: Patient is currently exhibited symptoms of bipolar 1 disorder which is likely due to medication noncompliance. Her medications have been reconciled and restarted. Continue current treatment regimen. Plan Admit to M5. 12b - 15 minutes check. Diagnostics as needed. Collateral contact. Continue remainder of regime. Encouraged full milieu. Discharge planning. 10/29: Increase Geodon to 60 mg bid 10/30: Continue current management and treatment plan. 10/31: Continue current management and treatment plan. 11/04: Continue tx 11/06/2024: Continue current treatment plan 11/07: no changes 7/7: Add Olanzapine 5 mg bid to regime [address] re-scheduled to 11/16/24. 11/11: ASHLEY Desai-ineffective at maximum dosing Continue Olanzapine Haldol 5 mg bid 11/12: Accepting of Olanzapine/Haldol Valproate ER 500 mg HS Reason for continued inpatient stay Substantial Risk for: rapid decompensation Time Spent With Patient Time: Total time managing care of this patient today ____ minutes.
[2024-11-12] MEDS: Milk of Magnesia 30 ML ORAL.SUSP PO (11:54)
[2024-11-12 20:04] VITALS: BP 139/70; PULSE 103; RESP 16; TEMP 37.1; O2SAT 97
[2024-11-13] MEDS: OLANZapine ODT 10 MG TAB.RAPDIS TRANSLINGU ×2 (08:42→20:56)
--- NOTE | 2024-11-13 09:18 | P.PNPSI_ITS ---
Subjective Subjective Date of Service: 11/13/24 Reason For Visit: Psychosis Interim History: met with patient; discussed with team; reviewed chart pleasant on approach; says some low AH since i do have some schizoaffective... but says AH is low and not a problem; says sleeping well. Staff concurs patient doing well Mental Status Exam Mental Status Exam Narrative: Pt is alert and oriented; behavior is cooperative, friendly, bopping around the milue; patient is not in distress; dressed in casual attire, a little unkempt hair but adequate hygiene with prompting; mood is described as good and affect congruent; eye contact appropriate; Speech is normal rate, volume and prosody and not pressured; no psychomotor agitation/retardation present; thought process is goal directed, concrete; Thought content is on various things; otherwise pertinent to relevant topics and without any delusional content, paranoid ideations or grandiosity; denies any SI/HI. AH but less bothersome Patients insight and judgment likely approaching baseline Diagnostics Vital Signs (24Hr): Vital Signs - 24 hr 11/12/24 20:04 Temperature 98.8 F Pulse Rate 103 H Respiratory Rate 16 Blood Pressure 139/70 Pulse Oximetry 97 Oxygen Delivery Method Room Air BMI result Body Mass Index 38.0 Labs 10/25/24 20:04 10/28/24 08:28 Medications Medications Current Medications Acetaminophen (Acetaminophen 325 Mg Tablet) 650 mg PO Q6H PRN PRN Reason: Headache/Pain, Scale 1-10 Last Admin: 11/12/24 16:54 Dose: 650 mg Al Hydroxide/Mg Hydroxide (Magnesium Hydrox/Alum Hydrox 30 Ml Oral.Susp) 30 ml PO Q6H PRN PRN Reason: Heartburn/Nausea Last Admin: 11/09/24 17:44 Dose: 30 ml Albuterol Sulfate (Albuterol Sulfate 90 Mcg 8 Gm Inhaler) 2 puff INHALE QID PRN PRN Reason: Shortness Of Breath Last Admin: 11/12/24 20:44 Dose: 2 puff Diphenhydramine HCl (Diphenhydramine Hcl 25 Mg Capsule) 50 mg PO QID PRN PRN Reason: Allergy symptoms Last Admin: 11/12/24 10:45 Dose: 50 mg Divalproex Sodium (Divalproex Sodium Er 500 Mg Tab.Er.24h) 500 mg PO BEDTIME NATALIA Last Admin: 11/12/24 20:45 Dose: 500 mg Haloperidol (Haloperidol 5 Mg Tablet) 5 mg PO BID [facility] Last Admin: 11/13/24 08:42 Dose: 5 mg Hydroxyzine HCl (Hydroxyzine Hcl 25 Mg Tablet) 25 mg PO Q6H PRN PRN Reason: mild anxiety Last Admin: 11/12/24 20:45 Dose: 25 mg Ibuprofen (Ibuprofen 400 Mg Tablet) 400 mg PO QID PRN PRN Reason: Pain, Moderate(Pain Scale 4-6) Last Admin: 11/12/24 11:54 Dose: 400 mg Lorazepam (Lorazepam 1 Mg Tablet) 1 mg PO TID PRN PRN Reason: severe anxiety Last Admin: 11/12/24 20:45 Dose: 1 mg Magnesium Hydroxide (Milk Of Magnesia 30 Ml Oral.Susp) 30 ml PO DAILY PRN PRN Reason: Constipation Last Admin: 11/12/24 11:54 Dose: 30 ml Nicotine Polacrilex (Nicotine Polacrilex 2 Mg Gum) 4 mg BUCCAL Q2H PRN PRN Reason: Nicotine Cravings Last Admin: 11/03/24 17:29 Dose: 2 mg Olanzapine (Olanzapine Odt 10 Mg Tab.Rapdis) 10 mg TRANSLINGU Q4H PRN PRN Reason: agitation Last Admin: 11/12/24 04:05 Dose: 10 mg Olanzapine (Olanzapine Odt 10 Mg Tab.Rapdis) 10 mg TRANSLINGU BID [facility] Last Admin: 11/13/24 08:42 Dose: 10 mg Trazodone HCl (Trazodone Hcl 50 Mg Tablet) 50 mg PO BEDTIME MRX1 PRN PRN Reason: Insomnia Last Admin: 11/12/24 20:45 Dose: 50 mg Allergies Allergies Allergy/AdvReac Type Severity Reaction Status Date / Time animal dander (PET DANDER) Allergy Unknown Itching Verified 10/23/24 13:51 bee pollen (BEE STINGS) Allergy Unknown Swelling Verified 10/23/24 13:51 house dust Allergy Unknown Unknown Verified 10/23/24 13:51 shellfish derived (SHELLFISH Allergy Unknown Swelling Verified 10/23/24 13:51 DERIVED) Seasonal Allergies Allergy Itching Verified 10/23/24 13:51 Assessment & Plan Assessment & Plan (1) Bipolar 1 disorder: Status: Acute Code(s): F31.9 - Bipolar disorder, unspecified Assessment and Plan: 39-year-old female with history of schizoaffective disorder, bipolar disorder, and PTSD [place] [facility] [place] via EMS, after her family reported manic and self-harming/bizarre behaviors, and medication noncompliance. On interview with this provider, patient stated her family brought her to the hospital for housing. She states that she has been homeless and sleeping on concrete floor on the streets for the past 2 years. She notes that she is on medications, including trazodone and Geodon which were helpful but has not taking them she she ran out of refills about 2 months ago. She states that she usually sleeps well and does not recall being sleep deprived. She currently feels ?enlightened and happy.? She was tearful as she explained that her nephew in her arms a long time ago and that her 21-year-old daughter earlier this year. She was notified about her daughter's by a family member. She wants to leave today to see her daughter's grave that she has not been able to see. She currently denies depression, anxiety, SI, HI, AH, VH. She notes that she consumes 1 edible and smokes a blunt of cannabis daily. She smokes half a pack of cigarettes daily. She drinks 1 nip of vodka daily. She denies other illicit drugs. She is disorganized, disruptive, and internally preoccupied during the interview. Formulation/Clinical reasoning: Bipolar 1 disorder: Patient is currently exhibited symptoms of bipolar 1 disorder which is likely due to medication noncompliance. Her medications have been reconciled and restarted. Continue current treatment regimen. Plan Admit to M5. 12b - 15 minutes check. Diagnostics as needed. Collateral contact. Continue remainder of regime. Encouraged full milieu. Discharge planning. 10/29: Increase Geodon to 60 mg bid 10/30: Continue current management and treatment plan. 10/31: Continue current management and treatment plan. 11/04: Continue tx 11/06/2024: Continue current treatment plan 11/07: no changes 11/08: Add Olanzapine 5 mg bid to regime Court re-scheduled to 11/16/24. 11/11: DC Geodon-ineffective at maximum dosing Continue Olanzapine Haldol 5 mg bid 11/12: Accepting of Olanzapine/Haldol Valproate ER 500 mg HS 11/13 pleasant on approach; says some low AH since i do have some schizoaffective... but says AH is low and not a problem; says sleeping well. Staff concurs patient doing well she says with medications doing better Patient educated on: diagnosis and medication risk/benefits Informed Consent: understands and further education needed Reason for continued inpatient stay Substantial Risk for: stable for discharge and rapid decompensation Time Spent With Patient Time: Total time managing care of this patient today ____ minutes.
[2024-11-13] MEDS: Albuterol Sulfate 90 MCG 8 GM INHALER 2 PUFF INHALE ×2 (14:10→20:59)
[2024-11-13] MEDS: Milk of Magnesia 30 ML ORAL.SUSP PO (18:16)
[2024-11-13 20:00] VITALS: BP 139/61; PULSE 97; RESP 16; TEMP 36.9; O2SAT 98
[2024-11-14] MEDS: Albuterol Sulfate 90 MCG 8 GM INHALER 2 PUFF INHALE ×2 (07:54→14:36)
[2024-11-14 08:00] VITALS: BP 126/78; PULSE 102; RESP 18; TEMP 36.9; O2SAT 98
[2024-11-14] MEDS: OLANZapine ODT 10 MG TAB.RAPDIS TRANSLINGU ×2 (08:50→20:03)
--- NOTE | 2024-11-14 19:29 | HO.PSYCHPN ---
Subjective Subjective Date of Service: 11/14/24 Reason For Visit: Psychosis Interim History: Met with patient; discussed with team Patient remains doing better, says AH remains low and that she is in a good mood. Mental Status Exam Mental Status Exam Narrative: Pt is alert and oriented; behavior is cooperative, friendly, bopping around the milue; patient is not in distress; dressed in casual attire, a little unkempt hair but adequate hygiene with prompting; mood is described as good and affect congruent; eye contact appropriate; Speech is normal rate, volume and prosody and not pressured; no psychomotor agitation/retardation present; thought process is goal directed, concrete; Thought content is on various things; otherwise pertinent to relevant topics and without any delusional content, paranoid ideations or grandiosity; denies any SI/HI. AH but less bothersome Patients insight and judgment likely approaching baseline Diagnostics Vital Signs (24Hr): Vital Signs - 24 hr 11/13/24 20:00 11/14/24 08:00 Temperature 98.5 F 98.4 F Pulse Rate 97 102 H Respiratory Rate 16 18 Blood Pressure 139/61 126/78 Pulse Oximetry 98 98 Oxygen Delivery Method Room Air Room Air BMI result Body Mass Index 38.0 Labs 10/25/24 20:04 10/28/24 08:28 Medications Medications Current Medications Acetaminophen (Acetaminophen 325 Mg Tablet) 650 mg PO Q6H PRN PRN Reason: Headache/Pain, Scale 1-10 Last Admin: 11/13/24 15:32 Dose: 650 mg Al Hydroxide/Mg Hydroxide (Magnesium Hydrox/Alum Hydrox 30 Ml Oral.Susp) 30 ml PO Q6H PRN PRN Reason: Heartburn/Nausea Last Admin: 11/09/24 17:44 Dose: 30 ml Albuterol Sulfate (Albuterol Sulfate 90 Mcg 8 Gm Inhaler) 2 puff INHALE QID PRN PRN Reason: Shortness Of Breath Last Admin: 11/14/24 14:36 Dose: 2 puff Diphenhydramine HCl (Diphenhydramine Hcl 25 Mg Capsule) 50 mg PO QID PRN PRN Reason: Allergy symptoms Last Admin: 11/14/24 12:06 Dose: 50 mg Divalproex Sodium (Divalproex Sodium Er 500 Mg Tab.Er.24h) 500 mg PO BEDTIME NATALIA Last Admin: 11/13/24 20:55 Dose: 500 mg Haloperidol (Haloperidol 5 Mg Tablet) 5 mg PO BID [facility] Last Admin: 11/14/24 08:49 Dose: 5 mg Hydroxyzine HCl (Hydroxyzine Hcl 25 Mg Tablet) 25 mg PO Q6H PRN PRN Reason: mild anxiety Last Admin: 11/12/24 20:45 Dose: 25 mg Ibuprofen (Ibuprofen 400 Mg Tablet) 400 mg PO QID PRN PRN Reason: Pain, Moderate(Pain Scale 4-6) Last Admin: 11/14/24 18:21 Dose: 400 mg Lorazepam (Lorazepam 1 Mg Tablet) 1 mg PO TID PRN PRN Reason: severe anxiety Last Admin: 11/13/24 20:56 Dose: 1 mg Magnesium Hydroxide (Milk Of Magnesia 30 Ml Oral.Susp) 30 ml PO DAILY PRN PRN Reason: Constipation Last Admin: 11/13/24 18:16 Dose: 30 ml Nicotine Polacrilex (Nicotine Polacrilex 2 Mg Gum) 4 mg BUCCAL Q2H PRN PRN Reason: Nicotine Cravings Last Admin: 11/03/24 17:29 Dose: 2 mg Olanzapine (Olanzapine Odt 10 Mg Tab.Rapdis) 10 mg TRANSLINGU Q4H PRN PRN Reason: agitation Last Admin: 11/13/24 20:56 Dose: 10 mg Olanzapine (Olanzapine Odt 10 Mg Tab.Rapdis) 10 mg TRANSLINGU BID [facility] Last Admin: 11/14/24 08:50 Dose: 10 mg Trazodone HCl (Trazodone Hcl 50 Mg Tablet) 50 mg PO BEDTIME MRX1 PRN PRN Reason: Insomnia Last Admin: 11/13/24 20:56 Dose: 50 mg Allergies Allergies Allergy/AdvReac Type Severity Reaction Status Date / Time animal dander (PET DANDER) Allergy Unknown Itching Verified 10/23/24 13:51 bee pollen (BEE STINGS) Allergy Unknown Swelling Verified 10/23/24 13:51 house dust Allergy Unknown Unknown Verified 10/23/24 13:51 shellfish derived (SHELLFISH Allergy Unknown Swelling Verified 10/23/24 13:51 DERIVED) Seasonal Allergies Allergy Itching Verified 10/23/24 13:51 Assessment & Plan Assessment & Plan (1) Bipolar 1 disorder: Status: Acute Code(s): F31.9 - Bipolar disorder, unspecified Assessment and Plan: 39-year-old female with history of schizoaffective disorder, bipolar disorder, and PTSD presented to [facility] on 10/23/2024 via EMS, after her family reported manic and self-harming/bizarre behaviors, and medication noncompliance. On interview with this provider, patient stated her family brought her to the hospital for housing. She states that she has been homeless and sleeping on concrete floor on the streets for the past 2 years. She notes that she is on medications, including trazodone and Geodon which were helpful but has not taking them she she ran out of refills about 2 months ago. She states that she usually sleeps well and does not recall being sleep deprived. She currently feels ?enlightened and happy.? She was tearful as she explained that her nephew in her arms a long time ago and that her 21-year-old daughter earlier this year. She was notified about her daughter's by a family member. She wants to leave today to see her daughter's grave that she has not been able to see. She currently denies depression, anxiety, SI, HI, AH, VH. She notes that she consumes 1 edible and smokes a blunt of cannabis daily. She smokes half a pack of cigarettes daily. She drinks 1 nip of vodka daily. She denies other illicit drugs. She is disorganized, disruptive, and internally preoccupied during the interview. Formulation/Clinical reasoning: Bipolar 1 disorder: Patient is currently exhibited symptoms of bipolar 1 disorder which is likely due to medication noncompliance. Her medications have been reconciled and restarted. Continue current treatment regimen. Plan Admit to M5. 12b - 15 minutes check. Diagnostics as needed. Collateral contact. Continue remainder of regime. Encouraged full milieu. Discharge planning. 10/29: Increase Geodon to 60 mg bid 10/30: Continue current management and treatment plan. 10/31: Continue current management and treatment plan. 11/04: Continue tx 11/06/2024: Continue current treatment plan 11/07: no changes 11/08: Add Olanzapine 5 mg bid to regime Court re-scheduled to 11/16/24. 11/11: DC Geodon-ineffective at maximum dosing Continue Olanzapine Haldol 5 mg bid 11/12: Accepting of Olanzapine/Haldol Valproate ER 500 mg HS 11/13 pleasant on approach; says some low AH since i do have some schizoaffective... but says AH is low and not a problem; says sleeping well. Staff concurs patient doing well she says with medications doing better 11/14 same presentation; continue treatment plan Patient educated on: diagnosis Informed Consent: understands Reason for continued inpatient stay Substantial Risk for: stable for discharge and med/psych decompensation Time Spent With Patient Time: Total time managing care of this patient today ____ minutes.
[2024-11-14 19:51] VITALS: BP 136/76; PULSE 76; RESP 16; TEMP 37.1; O2SAT 98
[2024-11-15 08:00] VITALS: BP 153/83; PULSE 100; RESP 16; TEMP 36.8; O2SAT 98
[2024-11-15] MEDS: Albuterol Sulfate 90 MCG 8 GM INHALER 2 PUFF INHALE ×3 (08:57→20:43)
[2024-11-15] MEDS: OLANZapine ODT 10 MG TAB.RAPDIS TRANSLINGU ×2 (08:59→20:43)
--- NOTE | 2024-11-15 09:57 | HO.PSYCHPN ---
Subjective Subjective Date of Service: 11/15/24 Reason For Visit: Psychosis Subjective Notes: Section 7 Healthcare Proxy: No Guardianship: No Medical Problems Affecting Mental Status: No Interim History: Team/Pt report a good weekend. Pt accepting meds, regime seems to be helpful in sx mgt. Requested Section 7 be continued. Pt disagrees, so we will plan DC for 11/15. Medication Compliance: Yes Side effects from medications: No Attending Groups: Intermittent Review of Systems Acute medical concerns: No Medical Review of Systems: unchanged Review of Systems Review of Systems no Mental Status Exam Mental Status Exam Patient Appearance: Appropriate Patient Orientation: Person, Place, Time and Situation Level of Consciousness: Alert Patient Behavior: Appropriate, Talkative and Cooperative Mood Description: Appropriate Affect Description: Appropriate Patient Cognition Impaired: No Ability to Follow Directions: Good Speech Pattern: Spontaneous Speech Memory Description: Episodic Impaired Hallucinations: None (denies) Delusions: Present Thought Process: Distracted Thought Content: positive for Circumstantial and positive for Suicidal Ideation (denies) Judgement: Fair Diagnostics Vital Signs (24Hr): Vital Signs - 24 hr 11/14/24 19:51 11/15/24 08:00 Temperature 98.7 F 98.2 F Pulse Rate 76 100 Respiratory Rate 16 16 Blood Pressure 136/76 153/83 H Pulse Oximetry 98 98 Oxygen Delivery Method Room Air BMI result Body Mass Index 38.0 Labs 10/25/24 20:04 10/28/24 08:28 Medications Medications Current Medications Acetaminophen (Acetaminophen 325 Mg Tablet) 650 mg PO Q6H PRN PRN Reason: Headache/Pain, Scale 1-10 Last Admin: 11/13/24 15:32 Dose: 650 mg Al Hydroxide/Mg Hydroxide (Magnesium Hydrox/Alum Hydrox 30 Ml Oral.Susp) 30 ml PO Q6H PRN PRN Reason: Heartburn/Nausea Last Admin: 11/09/24 17:44 Dose: 30 ml Albuterol Sulfate (Albuterol Sulfate 90 Mcg 8 Gm Inhaler) 2 puff INHALE QID PRN PRN Reason: Shortness Of Breath Last Admin: 11/15/24 08:57 Dose: 2 puff Diphenhydramine HCl (Diphenhydramine Hcl 25 Mg Capsule) 50 mg PO QID PRN PRN Reason: Allergy symptoms Last Admin: 11/15/24 08:57 Dose: 50 mg Divalproex Sodium (Divalproex Sodium Er 500 Mg Tab.Er.24h) 1,000 mg PO BEDTIME NATALIA Haloperidol (Haloperidol 5 Mg Tablet) 7.5 mg PO BID NATALIA Hydroxyzine HCl (Hydroxyzine Hcl 25 Mg Tablet) 25 mg PO Q6H PRN PRN Reason: mild anxiety Last Admin: 11/15/24 08:57 Dose: 25 mg Ibuprofen (Ibuprofen 400 Mg Tablet) 400 mg PO QID PRN PRN Reason: Pain, Moderate(Pain Scale 4-6) Last Admin: 11/14/24 18:21 Dose: 400 mg Lorazepam (Lorazepam 1 Mg Tablet) 1 mg PO TID PRN PRN Reason: severe anxiety Last Admin: 11/13/24 20:56 Dose: 1 mg Magnesium Hydroxide (Milk Of Magnesia 30 Ml Oral.Susp) 30 ml PO DAILY PRN PRN Reason: Constipation Last Admin: 11/13/24 18:16 Dose: 30 ml Nicotine Polacrilex (Nicotine Polacrilex 2 Mg Gum) 4 mg BUCCAL Q2H PRN PRN Reason: Nicotine Cravings Last Admin: 11/03/24 17:29 Dose: 2 mg Olanzapine (Olanzapine Odt 10 Mg Tab.Rapdis) 10 mg TRANSLINGU Q4H PRN PRN Reason: agitation Last Admin: 11/13/24 20:56 Dose: 10 mg Olanzapine (Olanzapine Odt 10 Mg Tab.Rapdis) 10 mg TRANSLINGU BID NATALIA Last Admin: 11/15/24 08:59 Dose: 10 mg Trazodone HCl (Trazodone Hcl 50 Mg Tablet) 50 mg PO BEDTIME MRX1 PRN PRN Reason: Insomnia Last Admin: 11/14/24 20:02 Dose: 50 mg Allergies Allergies Allergy/AdvReac Type Severity Reaction Status Date / Time animal dander (PET DANDER) Allergy Unknown Itching Verified 10/23/24 13:51 bee pollen (BEE STINGS) Allergy Unknown Swelling Verified 10/23/24 13:51 house dust Allergy Unknown Unknown Verified 10/23/24 13:51 shellfish derived (SHELLFISH Allergy Unknown Swelling Verified 10/23/24 13:51 DERIVED) Seasonal Allergies Allergy Itching Verified 10/23/24 13:51 Assessment & Plan Assessment & Plan (1) Bipolar 1 disorder: Status: Acute Code(s): F31.9 - Bipolar disorder, unspecified Assessment and Plan: 39-year-old female with history of schizoaffective disorder, bipolar disorder, and PTSD presented to [facility] on 10/23/2024 via EMS, after her family reported manic and self-harming/bizarre behaviors, and medication noncompliance. On interview with this provider, patient stated her family brought her to the hospital for housing. She states that she has been homeless and sleeping on concrete floor on the streets for the past 2 years. She notes that she is on medications, including trazodone and Geodon which were helpful but has not taking them she she ran out of refills about 2 months ago. She states that she usually sleeps well and does not recall being sleep deprived. She currently feels ?enlightened and happy.? She was tearful as she explained that her nephew in her arms a long time ago and that her 21-year-old daughter earlier this year. She was notified about her daughter's by a family member. She wants to leave today to see her daughter's grave that she has not been able to see. She currently denies depression, anxiety, SI, HI, AH, VH. She notes that she consumes 1 edible and smokes a blunt of cannabis daily. She smokes half a pack of cigarettes daily. She drinks 1 nip of vodka daily. She denies other illicit drugs. She is disorganized, disruptive, and internally preoccupied during the interview. Formulation/Clinical reasoning: Bipolar 1 disorder: Patient is currently exhibited symptoms of bipolar 1 disorder which is likely due to medication noncompliance. Her medications have been reconciled and restarted. Continue current treatment regimen. Plan Admit to M5. 12b - 15 minutes check. Diagnostics as needed. Collateral contact. Continue remainder of regime. Encouraged full milieu. Discharge planning. 10/29: Increase Geodon to 60 mg bid 10/30: Continue current management and treatment plan. 10/31: Continue current management and treatment plan. 11/04: Continue tx 11/06/2024: Continue current treatment plan 11/07: no changes 11/08: Add Olanzapine 5 mg bid to regime Court re-scheduled to 11/16/24. 11/11: DC Geodon-ineffective at maximum dosing Continue Olanzapine Haldol 5 mg bid 11/12: Accepting of Olanzapine/Haldol Valproate ER 500 mg HS 11/13 pleasant on approach; says some low AH since i do have some schizoaffective... but says AH is low and not a problem; says sleeping well. Staff concurs patient doing well she says with medications doing better 11/14 same presentation; continue treatment plan 11/15 Increase Haldol to 7.5 mg bid Increase Valproate to 1000 mg ER HS Reason for continued inpatient stay Substantial Risk for: rapid decompensation Time Spent With Patient Time: Total time managing care of this patient today ____ minutes.
[2024-11-16] MEDS: OLANZapine ODT 10 MG TAB.RAPDIS TRANSLINGU (08:53)
--- NOTE | 2024-11-16 08:58 | P.DS_ITS ---
DS: Providers Provider Date of Service: 11/16/24 Date of admission: 10/27/24 13:03 Date of discharge: 11/16/24 Primary care physician: Unknown Physician Admitting clinician: Ha Prasad Attending physician on admission: Malik Amaya Attending physician on discharge: Malik Amaya Discharging clinician: Debbi Koroma DS: Diagnosis Discharge Diagnosis (1) Bipolar 1 disorder: Status: Acute DS: Medications Discharge Medications Home Medications: Home Medications ?Medication ?Instructions ?Recorded ?Confirmed albuterol sulfate 90 mcg/actuation 2 puff inhalation Q 4-6H PRN 10/24/24 10/24/24 aerosol inhaler Shortness Of Breath Or Wheez ing Mental Status Exam Mental Status Exam Patient Appearance: Appropriate Patient Orientation: Person, Place, Time and Situation Level of Consciousness: Alert Patient Behavior: Appropriate, Talkative and Cooperative Mood Description: Appropriate Affect Description: Appropriate Patient Cognition Impaired: No Ability to Follow Directions: Good Speech Pattern: Spontaneous Speech Memory Description: Episodic Impaired Hallucinations: None (denies) Delusions: Present Thought Process: Distracted Thought Content: positive for Circumstantial and positive for Suicidal Ideation (denies) Judgement: Fair Data Data Completed and Pending Completed studies during hospitalization [Text1]: 11/15/24 11:02 Urine clean catch - Clean Catch Midstream Urine Culture - Pending DS: Summary Hospital Course Hospital Course: Admission to adult psychiatry for exacerbation of schizoaffective disorder, bipolar type. Pt was placed on a Section 7. Medications were evaluated and adjusted. Full milieu was offered to help pt strengthen coping skills. Pt recompensated on medications and was able to discharge before her court hearing. She will return to out patient providers in the community. She declined longterm referrals. Status at Discharge Functional status at discharge: independent ambulation Overall status at discharge: patient is progressing back to baseline Time Spent with Patient Time attestation: Total time managing care of this patient today ____ minutes. Time spent: Less than 30 minutes Discharge Plan Discharge Anticipated Discharge Date/Time: 11/16/24 12:00 Patient Disposition: Group Home Discharge Diagnosis: Schizoaffective Disorder, Bipolar Type Referrals: [facility] [place] [Other] - 1 Day Referral Note: Call in the morning by 8:00am to see if they have an available bed. [facility] [Other] - 1 Day Referral Note: Call Estephania to self refer. [facility] [Other] - 1 Day Referral Note: This is a same day walk in intake for psychiatry and therapy. Walk-in Hours: M-F 8am - 8pm Sat 9am - 5pm The first appointment is an intake only. It is recommended you get your intake in as soon as possible as there will likely be a wait time between your intake and your first psychiatry and therapy appointments. [facility] Psychiatry and Therapy Open Access Walk-In [Other] - 1 Day Referral Note: This is a same day walk-in intake for psychiatry and therapy. Walk-in Hours: M-F 10am - 12pm The first appointment is an intake only. It is recommended you get your intake in as soon as possible as there will likely be a wait time between your intake and your first psychiatry and therapy appointments. Physician,Unknown J [Primary Care Provider, Medical] - 1 Week Discharge Medications: Discontinued albuterol sulfate 90 mcg/actuation Hfa Aerosol Inhaler 2 puff INHALATION Q4-6H PRN (Reason: Shortness Of Breath Or Wheezing) No Action atorvastatin 10 mg Tablet 10 mg PO BEDTIME 30 Days Qty: 30 0RF divalproex 500 mg Tablet Extended Release 24 Hr 1,000 mg PO BEDTIME 30 Days Qty: 60 0RF Spiriva Respimat 2.5 mcg/actuation Mist 2 puff inhalation RDAILY 30 Days Qty: 1 0RF fluticasone furoate-vilanterol [Breo Ellipta] 100-25 mcg/dose Blister With Device 1 inh inhalation RDAILY 30 Days Qty: 1 0RF trazodone 50 mg Tablet 50 mg PO BEDTIME 30 Days Qty: 30 0RF olanzapine 10 mg Tablet 10 mg PO BID 30 Days Qty: 60 0RF meclizine 12.5 mg Tablet 12.5 mg PO Q8H PRN (Reason: dizziness) 30 Days Qty: 30 0RF cyclobenzaprine 10 mg Tablet 10 mg PO BID PRN (Reason: Muscle Spasm) 30 Days Qty: 60 0RF acetaminophen 325 mg Tablet 650 mg PO Q6H PRN (Reason: Pain/Headache) 30 Days Qty: 120 0RF haloperidol 5 mg Tablet 7.5 mg PO BID 30 Days Qty: 21 4RF cetirizine 10 mg Tablet 10 mg PO DAILY PRN (Reason: Allergy Symptoms) 30 Days Qty: 30 0RF diphenhydramine HCl 25 mg Capsule 50 mg PO BID PRN (Reason: Allergy symptoms) 30 Days Qty: 120 0RF albuterol sulfate [Ventolin HFA] 90 mcg/actuation Hfa Aerosol Inhaler 2 puff inhalation QID PRN (Reason: Shortness Of Breath) 30 Days Qty: 1 0RF fluticasone propionate 50 mcg/actuation [place],Suspension 1 spray INTRANASAL DAILY 30 Days Qty: 1 0RF Rx Instructions: administer into each nostril Discharge Orders: Discharge Order (Routine); Ordered 11/16/24 Ordered By: Debbi Koroma Diet: Advance to usual diet Activity on Discharge: As tolerated Stand Alone Forms: Patient Portal Discharge page, Community Support Print Language: [place] Care Plan Goals: Mood and Behavioral Stabilization Health Concerns: Mood and Behavioral Stabilization Plan of Treatment: Attend scheduled appointments Take medications as directed Call/Return as needed Assessment: Section 7 Pt has recompensated on medications, thus we will not be asking the court for a decision. She has been asked to remain in patient to continue to strengthen her health, yet refuses at this time. Discharge Date/Time: 11/16/24 11:55
[2024-11-16] MEDS: Albuterol Sulfate 90 MCG 8 GM INHALER 2 PUFF INHALE (09:04)
[2024-11-16 10:53] VITALS: BP 136/86; PULSE 89; TEMP 36.5; O2SAT 96
== END 2024-11-16 11:55 | disposition home or self-care (01) | DRG 885 ==
LOC: HO.ED 10-25 19:24 → HO.PM5 10-27 13:04
PROVIDERS: Emergency Medicine; Admitting Provider Clinical Nurse Specialist Psychiatric/Mental Health, Adult; Emergency Provider Emergency Medicine; Visit Provider Clinical Nurse Specialist Psychiatric/Mental Health, Adult
DX: F25.0 Schizoaffective disorder, bipolar type (principal); Z59.02 Unsheltered homelessness; Z63.4 Disappearance and death of family member; F17.210 Nicotine dependence, cigarettes, uncomplicated; Z71.6 Tobacco abuse counseling; Z91.148 Patient's other noncompliance with medication regimen for other reason; Z91.52 Personal history of nonsuicidal self-harm; Z79.899 Other long term (current) drug therapy
CPT/HCPCS: 36415; 80053; 80061; 80143; 80179; 80307; 81001; 81025; 82607; 82746; 83036; 83735; 84439; 84443; 85025; 87086; 93005; 99285; J1200; J1630; J2250; J2359; J3360; J3486; S9485

== ENCOUNTER → 2024-10-26 08:09 | Outpatient (BNV) | payer MEDICARE, SELFPAY | PROVIDERS: Emergency Provider Emergency Medicine; Visit Provider Internal Medicine | DX: Z13.6 Encounter for screening for cardiovascular disorders (principal) | CPT/HCPCS: 93010 ==

== ENCOUNTER → 2024-10-27 13:03 | Outpatient (BNV) | payer MEDICARE, SELFPAY | PROVIDERS: Admitting Provider Clinical Nurse Specialist Psychiatric/Mental Health, Adult; Emergency Provider Emergency Medicine; Visit Provider Nurse Practitioner Family | DX: F31.13 Bipolar disorder, current episode manic without psychotic features, severe (principal) | CPT/HCPCS: 90792; 99231; 99232 ==

== ENCOUNTER 2024-11-20 04:27 | Emergency (ER) | payer MEDICARE, MEDICAID, SELFPAY ==
--- NOTE | ~2024-11-20 | XR_ITS ---
CLINICAL HISTORY: Back pain. 3 views lumbar spine Comparison: 09/15/2024 Findings: Normal alignment. No acute fractures or dislocation. There are degenerative facet changes bilaterally at L4-L5 and L5-S1. IMPRESSION: No acute findings. This document has been electronically signed by: Michael Horvath MD on 11/20/2024 08:14:51
[2024-11-20 04:33] VITALS: BP 0/0; BP 152/84; PULSE 82; PULSE 87; RESP 17; TEMP 36.4; O2SAT 96; BMI 42.8
[2024-11-20 04:40] VITALS: BP 0/0; PULSE 82; RESP 17; TEMP 36.4; O2SAT 96
--- OUTSIDE RECORDS SUMMARY | 2024-11-20 04:51 | XMS_ITS | Clinical Summary ---
Author Organization [facility] Address [address] [place] [address] Phone Care Team Providers Care Auto Body Repair Technician Name Role Phone Physician, Pcp Unknown Primary Care Provider Mendy vailable Allergies No known active allergies Social History Tobacco Use Types Packs/Day Years [...] 96 08/02/2024 12:43 AM EDT Temperature 36.9 C (98.4 F) 08/02/2024 12:43 AM EDT Respiratory Rate 18 08/02/2024 12:43 AM EDT [...] Screening: P ap Smear 07/07/2004 COVID-19 Vaccine ( - 2023-2 5 season) 2024 Depression Screening 08/02/2024 HIV Screening 08/02/2024 Hepatitis C Screening 08/02/2024 Social Influencers of Health Screening 08/02/2024 Influenza Vaccine (#1) 2025 Cholesterol Screening (Lipid Panel) 01/11/2029 01/12/2024 [...] 5 Years) and At-Risk Patients (6 to 49 Years) Aged Out No longer eligi ble based on patient's age to complete this topic RSV Immunization Patients Un roman 20 months Aged Out No longer eligible b ased on patient's age to complete this topic Varicella Vaccines Aged Out No longer eligible based on patient's age to complete this topic Insurance [facility] Member Subscriber Plan / Payer (Ef fective 2024-Present) Name:Samaria Corley Member ID:[id number] Relation to Subscriber:Self Name:Samaria Corley Subscriber ID:[id number] Payer ID:[id number] Group ID:Not on file Type:Not on file Address: [address] [address] Care Teams Auto Body Repair Technician Relationship Specialty Start Date End Date Physician, Pcp Unknown PCP - General 08/02/24
--- OUTSIDE RECORDS SUMMARY | 2024-11-20 04:51 | XMS_ITS | Clinical Summary ---
Author Organization [facility] Address [address] [place] [address] Care Team Providers Care Logistics Manager Name Role Phone Roxie Guevara MD Primary Care Provider [phone] Allergies Active Allergy Reactions Criticality Noted Date [...] Never Assessed Tobacco Cessation:Counseling Given: Not Answered [facility] Utilities Answer Date Recorded In the past 12 months has [employer], [employer], or water fflick threatened to shut off services in your [...] place to sleep or slept in a residential (including now)? No 01/13/2024 Comments Unknown Sex [...] 116 01/13/2024 12:20 PM EDT Temperature 37.6 C (99.7 F) 01/13/2024 12:20 PM EDT Respiratory Rate 18 01/13/2024 12:20 PM EDT [...] topic Insurance MEDICARE PART A & B [facility] [place]IC[place] OUT OF NETWORK [facility] Advance Directives * Full Code (Latest Code Status on File) Date Activated Date Inactivated Comments 01/11/2024 12:44 PM Care Teams Logistics Manager Relationship Specialty Start Date End Date Roxie Guevara MD [address] [place] [address] PCP - General Family Medicine 01/13/24
--- OUTSIDE RECORDS SUMMARY | 2024-11-20 04:51 | XMS_ITS ---
Author Name [facility] Organization Unknown Results Test Name/Text Value Interpretation Date Range Source Phosphate SerPl-mCnc 3.9 mg/dL Normal 01/13/2024 2.7 - 4. 5 [facility] BUN SerPl-mCnc 12.0 mg/dL Normal 01/13/2024 8 - [address] Sodium SerPl-sCnc 135.0 mmol/L Below low normal 01/13/2024 1 36 - 145 HHCCT Calcium SerPl-mCnc 9.4 mg/dL Normal 01/13/2024 8.7 - 10.5 H[facility]CT BUN/Creat SerPl 17.0 Ratio Normal 01/13/2024 10 - 25 HH CCT GFR/BSA.pred SerPlBld [id number] >90.0 Normal 01/13/2024 59 - HHCCT Glucose SerPl-mCnc 109.0 mg/dL Above high normal 01/13/2024 65 - 99 HHCCT Anion Gap Bld-sCnc 13.0 Normal 01/13/2024 7 - 17 HHCCT Potassium SerPl-sCnc 4.0 mmol/L Normal 01/13/2024 3.4 - 5 .3 HHCCT CO2 SerPl-sCnc 22.0 mmol/L Normal 01/13/2024 22 - 33 HH CCT Chloride SerPl-sCnc 100.0 mmol/L Normal 01/13/2024 98 - 1 07 HHCCT Creat SerPl-mCnc 0.7 mg/dL Normal 01/13/2024 0.4 - 1.1 HH CCT Magnesium SerPl-mCnc 2.1 mg/dL Normal 01/13/2024 1.6 - 2. 7 HHCCT Hct VFr Bld Auto 37.2 % Normal 01/13/2024 35 - 47 HH CCT MCH RBC Qn Auto 29.2 pg Normal 01/13/2024 26 - [address] WBC num Bld Auto 9.6 Thou/uL Normal 01/13/2024 4 - 11 HHCCT Hgb Bld-mCnc 11.9 g/dL Normal 01/13/2024 11.7 - 15.7 HHCC T PMV Bld Auto 9.3 fL Normal 01/13/2024 7.5 - 12.5 HHCCT MCHC RBC Auto-mCnc 32.0 g/dL Normal 01/13/2024 30 - 36 HHCCT RDW RBC Auto-Rto 12.3 % Normal 01/13/2024 11.5 - 14.5 HHCCT RBC num Bld Auto 4.08 Mil/uL Normal 01/13/2024 4 - 5.4 HHCCT MCV RBC Auto 91.0 fL Normal 01/13/2024 80 - 100 H[facility]CT Platelet num Bld Auto 397.0 Thou/uL Normal 01/13/2024 150 - 450 HHCCT POC Glucose 104.0 mg/dL Above high normal 01/12/2024 65 - 99 HHCCT Folate SerPl-mCnc 8.1 ng/mL Normal 01/12/2024 7.2 - H HCCT 25(OH)D3 SerPl-mCnc 12.0 ng/mL Below low normal 01/12/2024 3 0 - 100 HHCCT Vit B12 SerPl-mCnc 186.0 pg/mL Below low normal 01/12/2024 2 43 - 894 HHCCT TSH SerPl DL<=0.005 mIU/L-aCnc 0.9 mIU/L Normal 01/12/2024 0.27 - 4.2 HHCCT Magnesium SerPl-mCnc 2.0 mg/dL Normal 01/12/2024 1.6 - 2. 7 HHCCT Cholest SerPl-mCnc 161.0 mg/dL Normal 01/12/2024 - 200 HHCCT Trigl SerPl-mCnc 172.0 mg/dL Above high normal 01/12/2024 - 150 HHCCT HDLc SerPl 5.4 Ratio Above high normal 01/12/2024 0 - 5 HHCCT LDLc SerPl Calc-mCnc 97.0 mg/dL Normal 01/12/2024 - 130 HHCCT HDLc SerPl-mCnc 30.0 mg/dL Below low normal 01/12/2024 39 - HHCCT GFR/BSA.pred SerPlBld [id number] >90.0 Normal 01/12/2024 59 - HHCCT Glucose SerPl-mCnc 121.0 mg/dL Above high normal 01/12/2024 65 - 99 HHCCT Anion Gap Bld-sCnc 10.0 Normal 01/12/2024 7 - 17 HHCCT BUN SerPl-mCnc 10.0 mg/dL Normal 01/12/2024 8 - [address] Prot SerPl-mCnc 7.0 g/dL Normal 01/12/2024 6.3 - 8.[address] Calcium SerPl-mCnc 9.3 mg/dL Normal 01/12/2024 8.7 - 10.5 HHCCT Chloride SerPl-sCnc 104.0 mmol/L Normal 01/12/2024 98 - 1 07 HHCCT Globulin Ser Calc-mCnc 3.0 g/dL Normal 01/12/2024 1.5 - 3.9 HHCCT Albumin SerPl-mCnc 4.0 g/dL Normal 01/12/2024 3.5 - 5 HHCCT BUN/Creat SerPl 13.0 Ratio Normal 01/12/2024 10 - 25 HH CCT Potassium SerPl-sCnc 4.1 mmol/L Normal 01/12/2024 3.4 - 5 .3 HHCCT Bilirub SerPl-mCnc 0.5 mg/dL Normal 01/12/2024 0.2 - 1 HHCCT ALT SerPl-cCnc 63.0 U/L Above high normal 01/12/2024 10 - 5 0 HHCCT Sodium SerPl-sCnc 138.0 mmol/L Normal 01/12/2024 136 - 14 5 HHCCT Creat SerPl-mCnc 0.8 mg/dL Normal 01/12/2024 0.4 - 1.1 HH CCT CO2 SerPl-sCnc 24.0 mmol/L Normal 01/12/2024 22 - 33 HH CCT ALP SerPl-cCnc 114.0 U/L Normal 01/12/2024 32 - 122 HHCC T Albumin/Glob SerPl 1.3 Ratio Normal 01/12/2024 1 - 3 HHCCT AST SerPl-cCnc 80.0 U/L Above high normal 01/12/2024 10 - 5 0 HHCCT Hgb A1c MFr Bld 4.7 % Normal 01/12/2024 - 5.[address] Est. average glucose Bld gHb Est-mCnc 88.0 mg/dL Normal 01/12/2024 HHCCT Hgb Bld-mCnc 11.9 g/dL Normal 01/12/2024 11.7 - 15.7 HHCC T RDW RBC Auto-Rto 12.6 % Normal 01/12/2024 11.5 - 14.5 HHCCT MCH RBC Qn Auto 29.6 pg Normal 01/12/2024 26 - [address] MCV RBC Auto 92.0 fL Normal 01/12/2024 80 - 100 HHCCT RBC num Bld Auto 4.02 Mil/uL Normal 01/12/2024 4 - 5.4 HHCCT MCHC RBC Auto-mCnc 32.3 g/dL Normal 01/12/2024 30 - 36 HHCCT PMV Bld Auto 9.1 fL Normal 01/12/2024 7.5 - 12.5 HHCCT Hct VFr Bld Auto 36.8 % Normal 01/12/2024 35 - 47 HH CCT Platelet num Bld Auto 382.0 Thou/uL Normal 01/12/2024 150 - 450 HHCCT WBC num Bld Auto 10.5 Thou/uL Normal 01/12/2024 4 - 11 HHCCT Albumin SerPl-mCnc 4.2 g/dL Normal 01/11/2024 3.5 - 5 HHCCT Bilirub SerPl-mCnc 0.6 mg/dL Normal 01/11/2024 0.2 - 1 HHCCT BUN/Creat SerPl 14.0 Ratio Normal 01/11/2024 10 - 25 HH CCT Potassium SerPl-sCnc 3.4 mmol/L Normal 01/11/2024 3.4 - 5 .3 HHCCT Globulin Ser Calc-mCnc 3.2 g/dL Normal 01/11/2024 1.5 - 3.9 HHCCT Calcium SerPl-mCnc 9.4 mg/dL Normal 01/11/2024 8.7 - 10.5 HHCCT Creat SerPl-mCnc 0.8 mg/dL Normal 01/11/2024 0.4 - 1.1 HH CCT CO2 SerPl-sCnc 19.0 mmol/L Below low normal 01/11/2024 22 - 33 HHCCT Chloride SerPl-sCnc 104.0 mmol/L Normal 01/11/2024 98 - 1 07 HHCCT Albumin/Glob SerPl 1.3 Ratio Normal 01/11/2024 1 - 3 HHCCT Prot SerPl-mCnc 7.4 g/dL Normal 01/11/2024 6.3 - 8.[address] GFR/BSA.pred SerPlBld [id number] >90.0 Normal 01/11/2024 59 - HHCCT Sodium SerPl-sCnc 139.0 mmol/L Normal 01/11/2024 136 - 14 5 HHCCT BUN SerPl-mCnc 11.0 mg/dL Normal 01/11/2024 8 - [address] AST SerPl-cCnc 100.0 U/L Above high normal 01/11/2024 10 - 5 0 HHCCT Anion Gap Bld-sCnc 16.0 Normal 01/11/2024 7 - 17 HHCCT Glucose SerPl-mCnc 163.0 mg/dL Above high normal 01/11/2024 65 - 99 HHCCT ALP SerPl-cCnc 108.0 U/L Normal 01/11/2024 32 - 122 HHCC T ALT SerPl-cCnc 52.0 U/L Above high normal 01/11/2024 10 - 5 0 HHCCT Lactate SerPl-sCnc 1.8 mmol/L Normal 01/11/2024 0.5 - 1.9 HHCCT GFR/BSA.pred SerPlBld [id number] 73.0 Normal 01/11/2024 59 - HHCCT Chloride SerPl-sCnc 106.0 mmol/L Normal 01/11/2024 98 - 1 07 HHCCT Anion Gap Bld-sCnc 14.0 Normal 01/11/2024 7 - 17 HHCCT Potassium SerPl-sCnc 2.8 mmol/L Below low normal 01/11/2024 3.4 - 5.3 HHCCT BUN SerPl-mCnc 21.0 mg/dL Normal 01/11/2024 8 - [address] Creat SerPl-mCnc 1.0 mg/dL Normal 01/11/2024 0.4 - 1.1 HH CCT CO2 SerPl-sCnc 20.0 mmol/L Below low normal 01/11/2024 22 - 33 HHCCT Calcium SerPl-mCnc 9.2 mg/dL Normal 01/11/2024 8.7 - 10.5 HHCCT BUN/Creat SerPl 21.0 Ratio Normal 01/11/2024 10 - 25 HH CCT Glucose SerPl-mCnc 110.0 mg/dL Above high normal 01/11/2024 65 - 99 HHCCT Sodium SerPl-sCnc 140.0 mmol/L Normal 01/11/2024 136 - 14 5 HHCCT Bilirub Direct SerPl-mCnc <0.2 mg/dL Normal 01/11/2024 0 - 0.2 HHCCT Globulin Ser Calc-mCnc 3.0 g/dL Normal 01/11/2024 1.5 - 3.9 HHCCT AST SerPl-cCnc 93.0 U/L Above high normal 01/11/2024 10 - 5 0 HHCCT Prot SerPl-mCnc 7.1 g/dL Normal 01/11/2024 6.3 - 8.[address] ALP SerPl-cCnc 101.0 U/L Normal 01/11/2024 32 - 122 HHCC T ALT SerPl-cCnc 38.0 U/L Normal 01/11/2024 10 - 50 HHCC T Bilirub SerPl-mCnc 0.5 mg/dL Normal 01/11/2024 0.2 - 1 HHCCT Albumin/Glob SerPl 1.4 Ratio Normal 01/11/2024 1 - 3 HHCCT Albumin SerPl-mCnc 4.1 g/dL Normal 01/11/2024 3.5 - 5 HHCCT APAP SerPl-mCnc 5.0 mg/L Below low normal 01/11/2024 10 - 3 0 HHCCT RBC num Bld Auto 4.15 Mil/uL Normal 01/11/2024 4 - 5.4 HHCCT MCH RBC Qn Auto 29.6 pg Normal 01/11/2024 26 - [address] PMV Bld Auto 9.2 fL Normal 01/11/2024 7.5 - 12.5 HHCCT Hct VFr Bld Auto 37.9 % Normal 01/11/2024 35 - 47 HH CCT MCHC RBC Auto-mCnc 32.5 g/dL Normal 01/11/2024 30 - 36 HHCCT Platelet num Bld Auto 392.0 Thou/uL Normal 01/11/2024 150 - 450 HHCCT RDW RBC Auto-Rto 12.7 % Normal 01/11/2024 11.5 - 14.5 HHCCT Hgb Bld-mCnc 12.3 g/dL Normal 01/11/2024 11.7 - 15.7 HHCC T WBC num Bld Auto 17.5 Thou/uL Above high normal 01/11/2024 4 - 11 HHCCT MCV RBC Auto 91.0 fL Normal 01/11/2024 80 - 100 HHCCT Lactate SerPl-sCnc 2.6 mmol/L Above high normal 01/11/2024 0 .5 - 1.9 HHCCT Squamous num/area UrnS HPF 2.0 PER HPF Normal 01/11/2024 HHCCT RBC num/area UrnS HPF 1.0 per hpf Normal 01/11/2024 0 - 4 HHCCT WBC num/area UrnS HPF 2.0 per hpf Normal 01/11/2024 0 - 4 HHCCT Clarity Ur Clear Normal 01/11/2024 HHCCT Ketones Ur Strip-mCnc Large Abnormal 01/11/2024 - CCT Hgb Ur Ql Strip Negative Normal 01/11/2024 - [facility] CT Color Ur Yellow Normal 01/11/2024 HHCCT Leukocyte esterase Ur Ql Strip Trace Abnormal 01/11/2024 - CCT Bilirub Ur Strip-mCnc Negative Normal 01/11/2024 - CCT Nitrite Ur Ql Strip Negative Normal 01/11/2024 - CCT Prot Ur Strip-mCnc Moderate (100 mg/dL) Abnormal 01/11/2024 - CCT Glucose Ur Strip-mCnc 0.0 mg/dL Normal 01/11/2024 0 - 99 HHCCT pH Ur Strip 5.0 Normal 01/11/2024 5 - 8 HHCCT Sp Gr Ur Strip 1.035 Above high normal 01/11/2024 1.003 - 1.03 HHCCT Tricyclics Ur Ql Scn Positive Abnormal 01/11/2024 - [facility] P[facility] Ur Ql Scn>25 ng/mL Negative Normal 01/11/2024 - [facility] Methadone Ur Ql Scn>300 ng/mL Negative Normal 01/11/2024 - [facility] Benzodiaz Ur Ql Scn>200 ng/mL Negative Normal 01/11/2024 - [facility] Barbiturates Ur Ql Scn>200 ng/mL Negative Normal 01/11/2024 - [facility] Amphetamines Ur Ql Positive Abnormal 01/11/2024 - [facility] Buprenorphine Ur Ql Negative Normal 01/11/2024 - [facility] fentaNYL+Norfentanyl Ur Ql Scn Negative Normal 01/11/2024 - [facility] Cannabinoids Ur Ql Scn>50 ng/mL Positive Abnormal 01/11/2024 - [facility] Oxycodone Ur Ql Scn Negative Normal 01/11/2024 - [facility] BZE Ur Ql Negative Normal 01/11/2024 - [facility] Opiates Ur Ql Scn>300 ng/mL Negative Normal 01/11/2024 - [facility] Salicylates SerPl-mCnc 1.0 mg/dL Below low normal 01/11/2024 15 - 30 HHCCT APAP SerPl-mCnc 33.0 mg/L Above high normal 01/11/2024 10 - 30 HHCCT Prot SerPl-mCnc 7.6 g/dL Normal 01/10/2024 6.3 - 8.[address] Bilirub SerPl-mCnc 0.5 mg/dL Normal 01/10/2024 0.2 - 1 HHCCT ALP SerPl-cCnc 106.0 U/L Normal 01/10/2024 32 - 122 HHCC T AST SerPl-cCnc 100.0 U/L Above high normal 01/10/2024 10 - 5 0 HHCCT Albumin SerPl-mCnc 4.4 g/dL Normal 01/10/2024 3.5 - 5 HHCCT Albumin/Glob SerPl 1.4 Ratio Normal 01/10/2024 1 - 3 HHCCT ALT SerPl-cCnc 39.0 U/L Normal 01/10/2024 10 - 50 HHCC T Bilirub Direct SerPl-mCnc <0.2 mg/dL Normal 01/10/2024 0 - 0.2 HHCCT Globulin Ser Calc-mCnc 3.2 g/dL Normal 01/10/2024 1.5 - 3.9 HHCCT Ethanol SerPl-mCnc <11.0 mg/dL Normal 01/10/2024 - 11 HHCCT Magnesium SerPl-mCnc 1.8 mg/dL Normal 01/10/2024 1.6 - 2. 7 HHCCT Calcium SerPl-mCnc 9.6 mg/dL Normal 01/10/2024 8.7 - 10.5 HHCCT Potassium SerPl-sCnc 3.2 mmol/L Below low normal 01/10/2024 3.4 - 5.3 HHCCT BUN/Creat SerPl 21.0 Ratio Normal 01/10/2024 10 - 25 HH CCT CO2 SerPl-sCnc 16.0 mmol/L Below low normal 01/10/2024 22 - 33 HHCCT Chloride SerPl-sCnc 105.0 mmol/L Normal 01/10/2024 98 - 1 07 HHCCT Sodium SerPl-sCnc 141.0 mmol/L Normal 01/10/2024 136 - 14 5 HHCCT Creat SerPl-mCnc 1.2 mg/dL Above high normal 01/10/2024 0.4 - 1.1 HHCCT BUN SerPl-mCnc 25.0 mg/dL Above high normal 01/10/2024 8 - 2 1 HHCCT Anion Gap Bld-sCnc 20.0 Above high normal 01/10/2024 7 - 17 HHCCT Glucose SerPl-mCnc 120.0 mg/dL Above high normal 01/10/2024 65 - 99 HHCCT GFR/BSA.pred SerPlBld [id number] 59.0 Below low normal 01/10/2024 59 - HHCCT MCH RBC Qn Auto 29.4 pg Normal 01/10/2024 26 - [address] WBC num Bld Auto 19.7 Thou/uL Above high normal 01/10/2024 4 - 11 HHCCT Monocytes/leuk NFr Bld Auto 6.4 % Normal 01/10/2024 HHCCT RBC num Bld Auto 4.32 Mil/uL Normal 01/10/2024 4 - 5.4 HHCCT PMV Bld Auto 9.4 fL Normal 01/10/2024 7.5 - 12.5 HHCCT Hgb Bld-mCnc 12.7 g/dL Normal 01/10/2024 11.7 - 15.7 HHCC T Imm Granulocytes num Bld Auto 0.16 Thou/uL Above high normal 01/10/2024 0 - 0.1 HHCCT Monocytes num Bld Auto 1.25 Thou/uL Normal 01/10/2024 0.2 - 1.5 HHCCT Eosinophil/leuk NFr Bld Auto 0.0 % Normal 01/10/2024 HHCCT Basophils/leuk NFr Bld Auto 0.4 % Normal 01/10/2024 HHCCT Neutrophils num Bld Auto 15.79 Thou/uL Above high normal 01/10/2024 2 - 7.5 HHCCT RDW RBC Auto-Rto 12.6 % Normal 01/10/2024 11.5 - 14.5 HHCCT MCV RBC Auto 90.0 fL Normal 01/10/2024 80 - 100 HHCCT Basophils num Bld Auto 0.07 Thou/uL Normal 01/10/2024 0 - 0.2 HHCCT Platelet num Bld Auto 450.0 Thou/uL Normal 01/10/2024 150 - 450 HHCCT Imm Granulocytes/leuk NFr Bld Auto 0.8 % Normal 01/10/2024 HHCCT Lymphocytes/leuk NFr Bld Auto 12.1 % Normal 01/10/2024 HHCCT Hct VFr Bld Auto 38.9 % Normal 01/10/2024 35 - 47 HH CCT MCHC RBC Auto-mCnc 32.6 g/dL Normal 01/10/2024 30 - 36 HHCCT Eosinophil num Bld Auto 0.0 Thou/uL Normal 01/10/2024 0 - 0.7 HHCCT Lymphocytes num Bld Auto 2.38 Thou/uL Normal 01/10/2024 1.5 - 4.5 HHCCT Neutrophils/leuk NFr Bld Auto 80.3 % Normal 01/10/2024 HHCCT Encounters Encounter Type Encounter Reason Primary Diagnosis Location Date Inpatient Bipolar disorder, current episode manic without psychotic features, unspecified Bipolar disorder, current episode manic without psychotic features, unspecified [facility] 01/10/2024 Care Team Organization Name Specialty Phone Email Start Date End Da fernandez [facility] 01/10/2024 07/21/2024 [facility] 01/10/2024
--- NOTE | 2024-11-20 07:33 | ED_ITS ---
HPI - Back Pain/Injury General Chief Complaint: Back Pain/Injury Stated Complaint: LOWER BACK PAIN/BILATERAL LEG & ANKLE PAIN Time Seen by Provider: 11/20/24 07:29 Source: patient Mode of arrival: ambulatory Limitations: no limitations History of Present Illness ED Provider: DR. Fonseca HPI Narrative: 39-year-old female who is homeless came in for evaluation of low back pain for few days patient admitted that she slipped in wrong way couple days ago woke up with the pain, no lower extremities numbness, still able to ambulate, no SI, no HI, no hallucination. No fever, no chills, no urinary or stool incontinence. Patient declined chance of being and requesting x-ray was out checking test. Patient also complaining of dysuria and frequency urination. Related Data Previous Rx's ?Medication ?Instructions ?Recorded acetaminophen 325 mg tablet 650 mg (2 x 325 mg) PO Q6H PRN 11/16/24 Headache/Pain, Scale 1-10 #0 tabs albuterol sulfate 90 mcg/actuation 2 puff inhalation Q ID PRN 11/16/24 aerosol inhaler (Ventolin HFA) Shortness Of Breath #1 inhaler diphenhydramine HCl 25 mg capsule 50 mg (2 x 25 mg) PO QID PRN 11/16/24 Allergy symptoms #15 caps divalproex 500 mg tablet,extended 500 mg PO DAILY #7 t abs 11/16/24 release 24 hr (Depakote ER) haloperidol 5 mg tablet 7.5 mg (1.5 x 5 mg) PO BID # 21 tabs 11/16/24 hydroxyzine HCl 25 mg tablet 25 mg PO Q6H PRN mild anx iety #15 11/16/24 tabs ibuprofen 400 mg tablet 400 mg PO QID PRN Pain, 11/02 09/26 Moderate(Pain Scale 4-6) #0 tabs olanzapine 10 mg disintegrating 10 mg translingual BID #14 tabs 11/16/24 tablet phenazopyridine 100 mg tablet 100 mg PO TID PRN pain # 21 tabs 11/16/24 (Pyridium) trazodone 50 mg tablet 50 mg PO BEDTIME MRX1 PRN In somnia 11/16/24 #14 tabs nitrofurantoin 100 mg PO BID #14 caps 11/20 monohydrate/macrocrystals 100 mg capsule (Macrobid) Allergies Allergy/AdvReac Type Severity Reaction Status Date / Time animal dander (PET DANDER) Allergy Unknown Itching Verified 11/20/24 04:35 bee pollen (BEE STINGS) Allergy Unknown Swelling Verified 11/20/24 04:35 house dust Allergy Unknown Unknown Verified 11/20/24 04:35 shellfish derived (SHELLFISH Allergy Unknown Swelling Verified 11/20/24 04:35 DERIVED) Seasonal Allergies Allergy Itching Verified 11/20/24 04:35 Review of Systems Review of Systems: All other systems are reviewed and are negative Constitutional: Reports as per HPI and Reports no additional constitutional complaints Eyes: Reports as per HPI and Reports no additional eye complaints Reports system reviewed and no additional complaints, except as documented Cardiovascular: Reports as per HPI and Reports no additional cardiovascular complaints Respiratory: Reports as per HPI and Reports no additional respiratory complaints Gastrointestinal: Reports as per HPI and Reports no additional gastrointestinal complaints Genitourinary: Reports no additional female genitourinary complaints Musculoskeletal: Reports no additional musculoskeletal complaints Skin/Breast: Reports system reviewed and no additional complaints, except as docu Psychiatric: Reports no additional psychiatric complaints Endocrine: Reports no additional endocrine complaints Hematologic/Lymphatic: Reports no additional hematologic/lymphatic complaints Allergic/Immunologic: Reports no additional allergic/immunologic complaints Reports system reviewed and no additional complaints, except as documented and Reports Abnormal speech present [facility] Past Medical History Medical History Suicidal ideation Bipolar disorder Severe asthma with allergic rhinitis Allergic rhinitis Vertigo Surgical History No pertinent past surgical history Family History Family History Father Lung cancer CVD (cardiovascular disease) Mother Past heart attack Diabetes Emphysema lung CVD (cardiovascular disease) Family/Other FH: mental illness Maternal Grandmother No problems noted. Paternal Grandmother No problems noted. Social History Social History Household Members: Unknown / Unable to assess Housing: Homeless Do you presently have visiting nurse or other home services: No Unable to assess alcohol history related to: Refusing to respond Alcohol intake: current Alcohol intake frequency: 0-2 drinks per day Alcohol type: hard liquor Comment: close observations at night Patient Tobacco Use Status: Refuse Tobacco use screen Tobacco use type: Cigarette Cigarette Packs Per Day: 1.5 Cigarettes Per Day: 30.0 Years Smoked: 19 Smoked in Last 30 Days: Yes e-Cigarette/Vaping Use: Never Used Second Hand Smoke Exposure: No Substance Use Type: Marijuana Substance Use Frequency: Occasionally Advance Directives: No Advance Directives Information Provided: No service: No Current occupational status: unemployed Sexual orientation: Straight/Heterosexual Cognitive needs: No Hearing needs: No Vision needs: No Physical Exam Vital Signs: Vital Signs: Last Vital Signs Temp 97.6 F 11/20/24 08:28 Pulse 86 11/20/24 08:28 Resp 14 11/20/24 08:28 BP 105/63 11/20/24 08:28 Pulse Ox 96 11/20/24 04:40 O2 Del Method Room Air 11/20/24 08:28 BMI result Body Mass Index 42.8 Vital signs have been reviewed and appear to be correct. Blood pressure el evated. Heart rate normal. Respiratory rate normal. Temperature normal. Oxygen saturation normal. Appearance: Alert. Oriented X3. No acute distress. Head: Normal external exam. Normocephalic. Atraumatic. No Sanders signs noted. No raccoon eyes noted Eyes: PERRLA. EOMI. Conjunctiva and sclera normal. Eyelids normal. ENT: TM's Normal. Pharynx normal. Uvula midline. Moist mucous membranes. No trismus noted. No drooling noted. No muffled voice noted. Neck: Normal inspection. Neck supple. FROM. No adenopathy. Thyroid Normal. No meningeal signs. No neck mass noted. CVS: Normal heart rate and rhythm. Heart sound normal. No murmurs noted. Pulses normal throughout. Respiratory: No respiratory distress. Painless inspiration. Breath sounds normal. No wheezes/rales/rhonchi noted. Chest nontender. No accessory muscle usage noted or decreased air movement noted. Abdomen: Soft and nontender. Bowel sounds normal in all 4 quadrants. No distention noted. No organomegaly noted. No visible injury noted. Back: No CVA tenderness. Full range of motion noted. Skin: Skin warm and dry. Normal skin color. Normal skin turgor. No rashes/lesions/lacerations noted. Extremities: No lower extremity edema. Extremities exhibit normal range of motion. Extremities nontender. Neuro: Oriented X 3. Cranial nerve exam: II-XII are grossly intact No motor deficit. No sensory deficit. Reflexes normal. Course Reevaluation(s) Reevaluation #1: 39-year-old female came in for low back pain with no known fall or trauma, likely patient slept in the wrong way, patient feels better with ibuprofen, x- ray is unremarkable. UTI will start on Macrobid. Time: 09:30 Medications Administered Discontinued Medications Generic Name Dose Route Start Last Admin Trade Name Shaheed PRN Reason Stop Dose Admin Ibuprofen 600 mg 11/20/24 07:37 11/20/24 09:07 Ibuprofen 600 Mg Tablet PO 11/20/24 07:38 600 mg ONCE ONE Administration Medical Decision Making Differential Diagnosis Differential Diagnoses: The differential diagnosis associated with the presentation includes (Lumbar spine degenerative disease, fracture, subluxation.) Admission/Observation Consideration of admission/observation: Escalation of care including admission/ observation considered Lab Data Labs: Lab Results 11/20/24 Range/Units 09:18 Urine Color [place] Urine Appearance Hazy Urine pH 6.0 (5.0-9.0) Ur Specific [place] 1.020 (1.005-1.025) Urine Protein See Note (Neg-Trace) mg/dL Urine Glucose (UA) See Note (Negative) mg/dL Urine Ketones Negative (Negative) mg/dL Urine Blood Negative (Negative) Urine Nitrite See Note (Negative) Ur Leukocyte Esterase Moderate (2+) H (Negative) Urine RBC 0-2 (0-2) /HPF Urine WBC 21-50 H (0-5) /HPF Ur Squamous Epith Cells 11-20 (0-2) /HPF Urine Bacteria Trace (None Seen) Hyaline Casts 0-2 (0-2) /LPF Independent Interpretation I performed an independent interpretation of an: Plain X-Ray (Lumbar spine: No acute fracture or dislocation.) Radiology Impression Discussion of test interpretation with radiology: I have reviewed the radiologist's reading. Discharge Plan Discharge Clinical Impression: Strain of lumbar region, UTI (urinary tract infection) Patient Disposition: Home, Self-Care Instructions: Muscle Strain (ED) Prescriptions: New nitrofurantoin monohyd/m-cryst [Macrobid] 100 mg capsule 100 mg PO BID Qty: 14 0RF Rx Instructions: must administer with a meal/food No Action acetaminophen 325 mg Tablet 650 mg PO Q6H PRN (Reason: Headache/Pain, Scale 1-10) Qty: 0 0RF ibuprofen 400 mg Tablet 400 mg PO QID PRN (Reason: Pain, Moderate(Pain Scale 4-6)) Qty: 0 0RF haloperidol 5 mg Tablet 7.5 mg PO BID Qty: 21 4RF trazodone 50 mg Tablet 50 mg PO BEDTIME MRX1 PRN (Reason: Insomnia) Qty: 14 4RF diphenhydramine HCl 25 mg Capsule 50 mg PO QID PRN (Reason: Allergy symptoms) Qty: 15 0RF olanzapine 10 mg Tablet,Disintegrating 10 mg translingual BID Qty: 14 4RF hydroxyzine HCl 25 mg Tablet 25 mg PO Q6H PRN (Reason: mild anxiety) Qty: 15 0RF albuterol sulfate [Ventolin HFA] 90 mcg/actuation Hfa Aerosol Inhaler 2 puff inhalation QID PRN (Reason: Shortness Of Breath) Qty: 1 0RF divalproex [Depakote ER] 500 mg tablet extended release 24 hr 500 mg PO DAILY Qty: 7 4RF phenazopyridine [Pyridium] 100 mg tablet 100 mg PO TID PRN (Reason: pain) Qty: 21 0RF Print Language: Khmer
[2024-11-20 08:28] VITALS: BP 105/63; PULSE 86; RESP 14; TEMP 36.4
[2024-11-20 09:25] LABS: Appearance Urine Hazy; PH 6.0 (5.0-9.0); Specific Gravity - Urine 1.020 (1.005-1.025); UMIC TRIGGER UACC YES
[2024-11-20 09:35] LABS: UACC Culture Trigger YES
[2024-11-20 10:20] LABS: UPreg QC Valid YES
[2024-11-20 10:34] VITALS: BP 105/63; PULSE 86; RESP 14; TEMP 36.4; O2SAT 96
== END 2024-11-20 10:34 | disposition home or self-care (01) ==
PROVIDERS: Emergency Provider Emergency Medicine
DX: S39.012A Strain of muscle, fascia and tendon of lower back, initial encounter (principal); X50.1XXA Overexertion from prolonged static or awkward postures, initial encounter; N39.0 Urinary tract infection, site not specified; Z59.00 Homelessness unspecified; Y93.84 Activity, sleeping; Y92.410 Unspecified street and highway as the place of occurrence of the external cause; Y99.9 Unspecified external cause status
CPT/HCPCS: 72100; 81001; 81025; 87086; 99283; 99284

== ENCOUNTER → 2024-11-20 07:32 | Outpatient (BNV) | payer MEDICARE, SELFPAY | PROVIDERS: Emergency Provider Emergency Medicine; Visit Provider Specialist | DX: M54.50 Low back pain, unspecified (principal) | CPT/HCPCS: 72100 ==

== ENCOUNTER 2024-11-21 17:11 | Emergency (ER) | payer MEDICARE, MEDICAID, SELFPAY ==
[2024-11-21 17:16] VITALS: BP 110/67; BP 121/63; PULSE 101; PULSE 99; RESP 14; TEMP 37; O2SAT 94; O2SAT 95; BMI 34.3
[2024-11-21 17:48] LABS: Appearance Urine Clear; PH 6.5 (5.0-9.0); Specific Gravity - Urine <= 1.005 (1.005-1.025); UMIC TRIGGER UACC YES
[2024-11-21 17:50] LABS: Glucose, Whole Blood 98 mg/dL (60-115)
[2024-11-21 17:53] LABS: MANUAL DIFF FLAG NO
[2024-11-21 17:54] LABS: Hematocrit 29.4 % (37.0-47.0); Hemoglobin 9.7 g/dl (12.0-16.0); Imm Gran Abs Auto 0.15 X10*3/uL (0.00-0.03); Imm Gran Pct Auto 1.9 % (0.0-0.4); Lymphocytes Absolute Auto 1.8 X10*3/uL (1.2-4.9); Mean Corpuscular HGB Conc 33.0 g/dl (31.0-35.0); Mean Corpuscular Hemoglobin 29.2 pg (27.0-33.0); Mean Corpuscular Volume 88.6 fL (80.0-98.0); NRBC Abs Auto 0.000 X10*3/uL (0.0-0.012); NRBC Pct Auto 0.0 /100WBC (0.0-0.2); Platelet Count 283 X10*3/uL (160-400); Red Blood Count 3.32 X10*6/uL (4.20-5.50); White Blood Count 8.0 X10*3/uL (4.8-10.8)
--- NOTE | 2024-11-21 17:56 | PC.NURSE ---
biba from [employer] c/o increased anxiety x 5 hours. patient denies chest pain/palpitations/dizziness/lightheadedness/sob. pt reports consuming 1 nip/3 beer/1 unknown pill [employer]. denies SI/HI. per EMS, bystander was checking random people at the gas station's temperature and told her that she had a fever. patient afebrile upon arrival. has not taken insulin x 1 day. hx bipolar disorder/schizoaffective. upon ED arrival - pt a&ox4. vss and up to date. labs/urine specimen obtained/sent to lab. pt on RA w/o difficulty. no sob/wob noted. respirations even/unlabored. plan of care ongoing.
[2024-11-21 17:57] VITALS: PULSE 101
[2024-11-21 18:00] LABS: Cannabinoid Screen Urine Not Detected (Not Detect)
[2024-11-21 18:08] LABS: Alanine Aminotransferase 20 U/L (0-31); Albumin Level 3.6 g/dL (3.5-5.0); Alkaline Phosphatase 89 U/L (39-117); Anion Gap 9 (12-20); Aspartate Amino Transferase 16 U/L (5-31); Blood Urea Nitrogen 11 mg/dL (9-16); Calcium 8.5 mg/dL (8.4-10.2); Carbon Dioxide 27 mmol/L (22-29); Chloride 108 mmol/L (96-108); Creatinine Clr Calc Pharmacy 97.2; Estimated Glomerular Filt Rate > 60; Magnesium 2.0 mg/dL (1.6-2.6); Potassium 3.8 mmol/L (3.3-5.1); Sodium 140 mmol/L (135-145); Total Protein 6.2 g/dL (6.5-8.0)
--- OUTSIDE RECORDS SUMMARY | 2024-11-21 18:24 | XMS_ITS | Clinical Summary ---
Author Organization [facility] Address [address] [place] [address] Phone Care Team Providers Care Food Service Sales Representatives Name Role Phone Physician, Pcp Unknown Primary [...] patient's age to complete this topic Insurance [facility] Member Subscriber Plan / Payer (Ef fective 2024-Present) Name:Samaria Corley Member ID:[id number] Relation to Subscriber:Self Name:Samaria Corley Subscriber ID:[id number] Payer ID:[id number] Group ID:Not on file Type:Not on file Address: [place] [address] [id number] Care Teams Food Service Sales Representatives Relationship Specialty Start Date End Date Physician, Pcp Unknown PCP - General 08/02/24
--- NOTE | 2024-11-21 19:15 | ED.GENADULT ---
HPI - General Adult General Chief complaint: Anxiety Stated complaint: anxiety attack Time Seen by Provider: 11/21/24 18:41 Source: patient Limitations: no limitations History of Present Illness ED Provider: Bailey Ingram PA-C HPI narrative: 39-year-old female with a history of schizoaffective disorder, bipolar disorder, depression, PTSD, morbid obesity, tobacco abuse, asthma and hyperlipidemia who presents with multiple complaints. Patient states she has been anxious, and that she took a ?pill from a friend?. Denies SI or HI. Patient also admits to drinking 1 nips and 3 beers today. Patient also states she thinks she has a fever that her forehead was hot. Patient lastly states that she has not been taking her insulin as directed, that her pharmacy is closed; patient self reports that she is a type 2 diabetic. Related Data Previous Rx's ?Medication ?Instructions ?Recorded acetaminophen 325 mg tablet 650 mg (2 x 325 mg) PO Q6H PRN 11/16/24 Headache/Pain, Scale 1-10 #0 tabs albuterol sulfate 90 mcg/actuation 2 puff inhalation QID PRN 11/16/24 aerosol inhaler (Ventolin HFA) Shortness Of Breath #1 inhaler diphenhydramine HCl 25 mg capsule 50 mg (2 x 25 mg) PO QID PRN 11/16/24 Allergy symptoms #15 caps divalproex 500 mg tablet,extended 500 mg PO DAILY #7 tabs 11/16/24 release 24 hr (Depakote ER) haloperidol 5 mg tablet 7.5 mg (1.5 x 5 mg) PO BID #21 tabs 11/16/24 hydroxyzine HCl 25 mg tablet 25 mg PO Q6H PRN mild anxiety #15 11/16/24 tabs ibuprofen 400 mg tablet 400 mg PO QID PRN Pain, 11/16/24 Moderate(Pain Scale 4-6) #0 tabs olanzapine 10 mg disintegrating 10 mg translingual BID #14 tabs 11/16/24 tablet phenazopyridine 100 mg tablet 100 mg PO TID PRN pain #21 tabs 11/16/24 (Pyridium) trazodone 50 mg tablet 50 mg PO BEDTIME MRX1 PRN Insomnia 11/16/24 #14 tabs nitrofurantoin 100 mg PO BID #14 caps 11/20/24 monohydrate/macrocrystals 100 mg capsule (Macrobid) Allergies Allergy/AdvReac Type Severity Reaction Status Date / Time animal dander (PET DANDER) Allergy Unknown Itching Verified 11/21/24 17:22 bee pollen (BEE STINGS) Allergy Unknown Swelling Verified 11/21/24 17:22 house dust Allergy Unknown Unknown Verified 11/21/24 17:22 shellfish derived (SHELLFISH Allergy Unknown Swelling Verified 11/21/24 17:22 DERIVED) Seasonal Allergies Allergy Itching Verified 11/21/24 17:22 Review of Systems Review of Systems: Yes all other systems are reviewed and are negative Constitutional: Constitutional: Denies fatigue and Denies fever(s) Cardiovascular: Cardiovascular: Denies chest pain and Denies dyspnea Respiratory: Respiratory: Denies dyspnea Gastrointestinal: Gastrointestinal: Denies abdominal pain, Denies diarrhea, Denies nausea and Denies vomiting Psychiatric: Psychiatric: Denies homicidal ideation and Denies suicidal ideation Endocrine: Endocrine: Denies fatigue PMFSH Past Medical History Attestation statement: The following information was validated with the patient. Medical History Suicidal ideation Bipolar disorder Severe asthma with allergic rhinitis Allergic rhinitis Vertigo Surgical History No pertinent past surgical history Family History Family History Father Lung cancer CVD (cardiovascular disease) Mother Past heart attack Diabetes Emphysema lung CVD (cardiovascular disease) Family/Other FH: mental illness Maternal Grandmother No problems noted. Paternal Grandmother No problems noted. Social History Social History Household Members: Unknown / Unable to assess Housing: Homeless Do you presently have visiting nurse or other home services: No Unable to assess alcohol history related to: Refusing to respond Alcohol intake: current Alcohol intake frequency: 3 or more drinks per day Alcohol type: beer and hard liquor Comment: close observations at night Patient Tobacco Use Status: Refuse Tobacco use screen Tobacco use type: Cigarette Cigarette Packs Per Day: 1.5 Cigarettes Per Day: 30.0 Years Smoked: 19 Smoked in Last 30 Days: No e-Cigarette/Vaping Use: Never Used Second Hand Smoke Exposure: No Use of substances other than those prescribed or required for medical reasons: Yes Substance Use Type: Crack/Cocaine Advance Directives: No Advance Directives Information Provided: No Do you have a plan to hurt others: No Plan Patient : No service: No Current occupational status: unemployed Sexual orientation: Straight/Heterosexual Cognitive needs: No Hearing needs: No Vision needs: No Physical Exam ED Exam Exam: Alert well-appearing Vital Signs: Vital Signs - 24 hr 11/21/24 17:16 Temperature 98.6 F Pulse Rate 101 H Respiratory Rate 14 Blood Pressure 110/67 Pulse Oximetry 94 Oxygen Delivery Method Room Air BMI result Body Mass Index 34.3 Const Orientation/consciousness: patient oriented x3 Resp Effort & Inspection: normal respiratory effort Cardio Other: Normal peripheral perfusion Skin Other: Warm dry no rash Neuro General: patient oriented x3, gait normal, no focal motor deficits and CN's II-XI intact bilaterally Psych Other: Cooperative Medical Decision Making Medical Decision Making MDM Narrative: 39-year-old female with a history of schizoaffective disorder, bipolar disorder, depression, PTSD, morbid obesity, tobacco abuse, asthma and hyperlipidemia who presents with multiple complaints. Patient states she has been anxious, and that she took a ?pill from a friend?. Denies SI or HI. Patient also admits to drinking 1 nips and 3 beers today. Patient also states she thinks she has a fever that her forehead was hot. Patient lastly states that she has not been taking her insulin as directed, that her pharmacy is closed; patient self reports that she is a type 2 diabetic. Problem: Psychiatric illness, substance use History: Per patient I have considered the following differential diagnoses: Decompensated psychiatric illness, SI, HI, drug/alcohol intoxication, fever, viral syndrome, hyperglycemia, DKA, HHS Plan: Screening labs obtained everything is unremarkable. In regard to the patient's report of hyperglycemia, there was no documentation to support that she is a type 2 diabetic, the patient is well known to the emergency room. When asked what form of anti glycemic agent she uses, she had stated insulin at triage, for me she could not recall what medication she uses. In regard to the anxiety, I will provider with outpatient resources, she states she does not see psychiatry or a therapist. Objectively the patient is not febrile, but no associated symptoms. I have independently reviewed the following tests: Labs: No leukocytosis, stable anemia, no electrolyte abnormality, blood sugar not elevated, urine not infected, serum ethanol less than 10 drug screen negative Lab Data 11/21/24 17:49 11/21/24 17:49 Labs: Lab Results 11/21/24 11/21/24 11/21/24 Range/Units 17:38 17:40 17:47 WBC (4.8-10.8) X10*3/uL RBC (4.20-5.50) X10*6/uL Hgb (12.0-16.0) g/dl Hct (37.0-47.0) % MCV (80.0-98.0) fL MCH (27.0-33.0) pg MCHC (31.0-35.0) g/dl RDW (11.0-16.0) % Plt Count (160-400) X10*3/uL MPV (9.4-12.3) fL Immature Gran % (Auto) (0.0-0.4) % Neut % (Auto) (45-73) % Lymph % (Auto) (20-40) % [place] % (Auto) (2-11) % Eos % (Auto) (0-4) % Baso % (Auto) (0-2) % Lymph # (Auto) (1.2-4.9) X10*3/uL [place] # (Auto) (0.1-1.2) X10*3/uL Eos # (Auto) (0.0-0.4) X10*3/uL Baso # (Auto) (0.0-0.2) X10*3/uL Abs Immat Gran (auto) (0.00-0.03) X10*3/uL Absolute Neuts (auto) (2.0-8.3) x10*3/uL Absolute Nucleated RBC (0.0-0.012) X10*3/uL Nucleated RBC % (auto) (0.0-0.2) /100WBC Sodium (135-145) mmol/L Potassium (3.3-5.1) mmol/L Chloride (96-108) mmol/L Carbon Dioxide (22-29) mmol/L Anion Gap (12-20) BUN (9-16) mg/dL Creatinine (0.5-1.4) mg/dL Estim Creat Clear Calc Estimated GFR POC Glucose 98 (60-115) mg/dL Random Glucose (60-115) mg/dL Calcium (8.4-10.2) mg/dL Magnesium (1.6-2.6) mg/dL Total Bilirubin (0.0-1.0) mg/dL AST (5-31) U/L ALT (0-31) U/L Alkaline Phosphatase (39-117) U/L Total Protein (6.5-8.0) g/dL Albumin (3.5-5.0) g/dL Urine Color [place] Urine Appearance Clear Urine pH 6.5 (5.0-9.0) Ur Specific [place] <= 1.005 (1.005-1.025) Urine Protein 30 (1+) H (Neg-Trace) mg/dL Urine Glucose (UA) See Note (Negative) mg/dL Urine Ketones Negative (Negative) mg/dL Urine Blood Negative (Negative) Urine Nitrite See Note (Negative) Ur Leukocyte Esterase See Note (Negative) Urine RBC 0-2 (0-2) /HPF Urine WBC 0-5 (0-5) /HPF Ur Squamous Epith Cells 3-5 (0-2) /HPF Urine Bacteria None Seen (None Seen) Hyaline Casts 0-2 (0-2) /LPF Urine Opiates Screen Not Detected (Not Detect) Ur Buprenorphine Scrn Not Detected (Not Detect) ng/mL Ur Oxycodone Screen Not Detected (Not Detect) ng/mL Urine Methadone Screen Not Detected (Not Detect) ng/mL Urine Fentanyl Screen Not Detected (Not Detect) Ur Barbiturates Screen Not Detected (Not Detect) Ur Phencyclidine Scrn Not Detected (Not Detect) Ur Amphetamines Screen Not Detected (Not Detect) U Benzodiazepines Scrn Not Detected (Not Detect) Urine Cocaine Screen Not Detected (Not Detect) U Marijuana (THC) Screen Not Detected (Not Detect) Ethyl Alcohol mg/dL 11/21/24 Range/Units 17:49 WBC 8.0 (4.8-10.8) X10*3/uL RBC 3.32 L D (4.20-5.50) X10*6/uL Hgb 9.7 L D (12.0-16.0) g/dl Hct 29.4 L D (37.0-47.0) % MCV 88.6 (80.0-98.0) fL MCH 29.2 (27.0-33.0) pg MCHC 33.0 (31.0-35.0) g/dl RDW 13.1 (11.0-16.0) % Plt Count 283 D (160-400) X10*3/uL MPV 8.8 L (9.4-12.3) fL Immature Gran % (Auto) 1.9 H (0.0-0.4) % Neut % (Auto) 67.2 (45-73) % Lymph % (Auto) 22.9 (20-40) % [place] % (Auto) 5.9 (2-11) % Eos % (Auto) 1.8 (0-4) % Baso % (Auto) 0.3 (0-2) % Lymph # (Auto) 1.8 (1.2-4.9) X10*3/uL [place] # (Auto) 0.5 (0.1-1.2) X10*3/uL Eos # (Auto) 0.1 (0.0-0.4) X10*3/uL Baso # (Auto) 0.0 (0.0-0.2) X10*3/uL Abs Immat Gran (auto) 0.15 H (0.00-0.03) X10*3/uL Absolute Neuts (auto) 5.4 (2.0-8.3) x10*3/uL Absolute Nucleated RBC 0.000 (0.0-0.012) X10*3/uL Nucleated RBC % (auto) 0.0 (0.0-0.2) /100WBC Sodium 140 (135-145) mmol/L Potassium 3.8 (3.3-5.1) mmol/L Chloride 108 (96-108) mmol/L Carbon Dioxide 27 (22-29) mmol/L Anion Gap 9 L (12-20) BUN 11 (9-16) mg/dL Creatinine 0.86 (0.5-1.4) mg/dL Estim Creat Clear Calc 97.2 Estimated GFR > 60 POC Glucose (60-115) mg/dL Random Glucose 96 (60-115) mg/dL Calcium 8.5 D (8.4-10.2) mg/dL Magnesium 2.0 (1.6-2.6) mg/dL Total Bilirubin 0.4 (0.0-1.0) mg/dL AST 16 (5-31) U/L ALT 20 (0-31) U/L Alkaline Phosphatase 89 (39-117) U/L Total Protein 6.2 L (6.5-8.0) g/dL Albumin 3.6 (3.5-5.0) g/dL Urine Color Urine Appearance Urine pH (5.0-9.0) Ur Specific [place] (1.005-1.025) Urine Protein (Neg-Trace) mg/dL Urine Glucose (UA) (Negative) mg/dL Urine Ketones (Negative) mg/dL Urine Blood (Negative) Urine Nitrite (Negative) Ur Leukocyte Esterase (Negative) Urine RBC (0-2) /HPF Urine WBC (0-5) /HPF Ur Squamous Epith Cells (0-2) /HPF Urine Bacteria (None Seen) Hyaline Casts (0-2) /LPF Urine Opiates Screen (Not Detect) Ur Buprenorphine Scrn (Not Detect) ng/mL Ur Oxycodone Screen (Not Detect) ng/mL Urine Methadone Screen (Not Detect) ng/mL Urine Fentanyl Screen (Not Detect) Ur Barbiturates Screen (Not Detect) Ur Phencyclidine Scrn (Not Detect) Ur Amphetamines Screen (Not Detect) U Benzodiazepines Scrn (Not Detect) Urine Cocaine Screen (Not Detect) U Marijuana (THC) Screen (Not Detect) Ethyl Alcohol < 10 mg/dL Discharge Plan Discharge Clinical Impression: Acute anxiety Patient Disposition: Home, Self-Care Instructions: Anxiety (ED) Additional Instructions: All of your screening labs were normal, your blood sugar is not elevated, you do not have a urinary tract infection. I am providing you with a list of outpatient resources for therapy and counseling. Continue to follow up with your primary care provider as needed. Prescriptions: No Action nitrofurantoin monohyd/m-cryst [Macrobid] 100 mg capsule 100 mg PO BID Qty: 14 0RF Rx Instructions: must administer with a meal/food acetaminophen 325 mg Tablet 650 mg PO Q6H PRN (Reason: Headache/Pain, Scale 1-10) Qty: 0 0RF ibuprofen 400 mg Tablet 400 mg PO QID PRN (Reason: Pain, Moderate(Pain Scale 4-6)) Qty: 0 0RF haloperidol 5 mg Tablet 7.5 mg PO BID Qty: 21 4RF trazodone 50 mg Tablet 50 mg PO BEDTIME MRX1 PRN (Reason: Insomnia) Qty: 14 4RF diphenhydramine HCl 25 mg Capsule 50 mg PO QID PRN (Reason: Allergy symptoms) Qty: 15 0RF olanzapine 10 mg Tablet,Disintegrating 10 mg translingual BID Qty: 14 4RF hydroxyzine HCl 25 mg Tablet 25 mg PO Q6H PRN (Reason: mild anxiety) Qty: 15 0RF albuterol sulfate [Ventolin HFA] 90 mcg/actuation Hfa Aerosol Inhaler 2 puff inhalation QID PRN (Reason: Shortness Of Breath) Qty: 1 0RF divalproex [Depakote ER] 500 mg tablet extended release 24 hr 500 mg PO DAILY Qty: 7 4RF phenazopyridine [Pyridium] 100 mg tablet 100 mg PO TID PRN (Reason: pain) Qty: 21 0RF Print Language: Burmese
[2024-11-21 19:22] VITALS: BP 113/61; PULSE 83; RESP 17; TEMP 36.6; O2SAT 95
[2024-11-21 19:26] VITALS: BP 113/61; PULSE 83; RESP 17; TEMP 36.6; O2SAT 95
--- NOTE | 2024-11-21 19:26 | PC.NURSE ---
pt provided w/ outpatient resources booklet prior to discharge.
== END 2024-11-21 19:26 | disposition home or self-care (01) ==
PROVIDERS: Emergency Provider Emergency Medicine
DX: F41.1 Generalized anxiety disorder (principal); E11.9 Type 2 diabetes mellitus without complications; Z51.81 Encounter for therapeutic drug level monitoring; Z79.899 Other long term (current) drug therapy
CPT/HCPCS: 36415; 80053; 80307; 81001; 82947; 83735; 85025; 99283; 99285

== ENCOUNTER 2024-11-22 10:15 | Inpatient (IN) | payer MEDICARE, MEDICAID, SELFPAY ==
[2024-11-22 10:27] VITALS: BP 118/70; BP 127/68; PULSE 88; PULSE 98; RESP 16; TEMP 36.8; O2SAT 94; O2SAT 95; BMI 37.7
--- NOTE | 2024-11-22 11:03 | ED.PSYCH ---
HPI - Psych General Chief Complaint: Psychiatric Symptoms Stated Complaint: N/V,WEAK,S/P PANIC ATTACK PER EMS Time Seen by Provider: 11/22/24 11:01 Source: patient, EMS and old records reviewed Mode of arrival: EMS Limitations: no limitations History of Present Illness ED Provider: ELLE HPI Narrative: 39 yo female well known to us [facility] of bipolar, schizoaffective disorder, PTSD who has housing insecurity presents with c/o SI and panic attacks after she states she lost her PCP. She notes she has no AH. She has no medical complaints. She couldn't take it today and had a panic attack [employer]. MD complaint: suicidal ideation and feels depressed Onset (ago): day(s) Duration: getting worse History of same: Yes Relieving factors: none Exacerbating factors: other Associated psychiatric symptoms: depression and suicidal ideation Associated symptoms: denies other symptoms Treatments prior to arrival: none If self harm: admits thoughts of self harm Related Data Home Medications ?Medication ?Instructions ?Recorded ?Confirmed divalproex 500 mg tablet,extended 500 mg PO BEDTIME 11/22/24 11/23/24 release 24 hr (Depakote ER) acetaminophen 325 mg tablet 650 mg PO Q6H PRN Pain/Headache 11/23/24 11/23/24 cetirizine 10 mg tablet 10 mg PO DAILY PRN Allergy Symptoms 11/23/24 11/23/24 cyclobenzaprine 10 mg tablet 10 mg PO TID PRN Muscle Spasm 11/23/24 11/23/24 fluticasone propionate 50 1 spray intranasal DAILY 11/23/24 11/23/24 mcg/actuation nasal spray,suspension montelukast 10 mg tablet 10 mg PO DAILY 11/23/24 11/23/24 phenazopyridine 100 mg tablet 100 mg PO TID PRN Pain 11/23/24 11/23/24 (Pyridium) umeclidinium 62.5 mcg/actuation 1 inh inhalation DAILY 11/23/24 11/23/24 blister powder for inhalation (Incruse Ellipta) Previous Rx's ?Medication ?Instructions ?Recorded albuterol sulfate 90 mcg/actuation 2 puff inhalation QID PRN 11/16/24 aerosol inhaler (Ventolin HFA) Shortness Of Breath #1 inhaler diphenhydramine HCl 25 mg capsule 50 mg (2 x 25 mg) PO QID PRN 11/16/24 Allergy symptoms #15 caps haloperidol 5 mg tablet 7.5 mg (1.5 x 5 mg) PO BID #21 tabs 11/16/24 hydroxyzine HCl 25 mg tablet 25 mg PO Q6H PRN mild anxiety #15 11/16/24 tabs olanzapine 10 mg disintegrating 10 mg translingual BID #14 tabs 11/16/24 tablet trazodone 50 mg tablet 50 mg PO BEDTIME MRX1 PRN Insomnia 11/16/24 #14 tabs Allergies Allergy/AdvReac Type Severity Reaction Status Date / Time animal dander (PET DANDER) Allergy Unknown Itching Verified 11/22/24 10:34 bee pollen (BEE STINGS) Allergy Unknown Swelling Verified 11/21/24 17:22 house dust Allergy Unknown Unknown Verified 11/21/24 17:22 shellfish derived (SHELLFISH Allergy Unknown Swelling Verified 11/21/24 17:22 DERIVED) Seasonal Allergies Allergy Itching Verified 11/21/24 17:22 Review of Systems Review of Systems: Constitutional : No Fever, No Chills ENT/Mouth : No Ear Pain, No Nasal Congestion, No sore throat Eyes: No Eye Pain, No Swelling, No Redness Cardiovascular : No Chest Pain, No SOB Respiratory : No Cough, No Sputum, No Dyspnea Gastrointestinal : No Nausea, No Vomiting, No Diarrhea, No Hematochezia, No Melena Genitourinary : No Dysuria, No Urinary Frequency, No Hematuria Musculoskeletal : No Myalgias Skin : No Skin Lesions, No rash Neuro : No Weakness, No Numbness, No Paresthesias, No Dizziness, No Headache Psych : positive Anxiety, positive Depression, positive SI no HI All other systems reviewed and are negative [facility] Past Medical History Attestation statement: The following information was validated with the patient. Source: old records reviewed Medical History Suicidal ideation Bipolar disorder Severe asthma with allergic rhinitis Allergic rhinitis Vertigo Surgical History No pertinent past surgical history Family History Family History Father Lung cancer CVD (cardiovascular disease) Mother Past heart attack Diabetes Emphysema lung CVD (cardiovascular disease) Family/Other FH: mental illness Maternal Grandmother No problems noted. Paternal Grandmother No problems noted. Social History Social History Household Members: Unknown / Unable to assess Housing: Homeless Do you presently have visiting nurse or other home services: No Unable to assess alcohol history related to: Refusing to respond Alcohol intake: current Alcohol intake frequency: 3 or more drinks per day Alcohol type: beer and hard liquor Comment: close observations at night Patient Tobacco Use Status: Refuse Tobacco use screen Tobacco use type: Cigarette Cigarette Packs Per Day: 1.5 Cigarettes Per Day: 30.0 Years Smoked: 19 e-Cigarette/Vaping Use: Never Used Second Hand Smoke Exposure: No Use of substances other than those prescribed or required for medical reasons: Refusing to respond Substance Use Type: Crack/Cocaine Advance Directives: No Advance Directives Information Provided: Yes Nutrition Risks: No Nutritional Risk service: No Current occupational status: unemployed Sexual orientation: Straight/Heterosexual Cognitive needs: No Hearing needs: No Vision needs: No Physical Exam Vital Signs: Vital Signs: Last Vital Signs Temp 98.2 F 11/24/24 08:40 Pulse 93 11/24/24 08:40 Resp 16 11/24/24 08:40 BP 162/102 H 11/24/24 08:40 Pulse Ox 98 11/24/24 08:40 O2 Del Method Room Air 11/24/24 08:40 BMI result Body Mass Index 37.7 Appearance: Alert. Oriented X3. No acute distress. Eyes: Pupils equal, round and reactive to light. ENT: Pharynx normal. Neck: Normal inspection. Neck supple. CVS: Normal heart rate and rhythm. Pulses normal. Respiratory: No respiratory distress. Breath sounds normal. Abdomen: Soft and nontender. Skin: Skin warm and dry. Normal skin color. Normal skin turgor. Extremities: No lower extremity edema. No calf ttp Neuro: Oriented X 3. No motor deficit. No sensory deficit. CN2-12 intact Course Course Course Narrative: IPBS Reevaluation(s) Reevaluation #1: Time: 07:12 Date: 11/23/24 Provider: Agusto Arambula MD Patient in physician observation for psychiatric evaluation.? No acute events reported overnight. No current complaints. VS stable.? Patient is in bed search status/pending CARE team evaluation. Will continue to monitor. Reevaluation #2: 11/23/2024 16:09 patient will be admitted to the psychiatric unit this and the ED obs status Time: 16:09 Reevaluation #3: Time: 08:53 Date: 11/24/24 Provider: Agusto Arambula MD Patient in physician observation for psychiatric evaluation.? No acute events reported overnight. No current complaints. VS stable.? Patient is in bed search status/pending CARE team evaluation. Will continue to monitor. Additional Reevaluation(s): 11/24/2024 12:38 p.m. patient will be admitted to the inpatient psych unit this will end the ED observation status Medications Administered Generic Name Dose Route Start Last Admin Trade Name Freq PRN Reason Stop Dose Admin Albuterol Sulfate 2 puff 11/22/24 17:35 11/24/24 05:37 Albuterol Sulfate 90 Mcg 8 Gm Inhaler INHALE 2 puff QID PRN Administration Shortness of Breath Divalproex Sodium 1,000 mg 11/22/24 21:00 11/23/24 20:25 Divalproex Sodium Er 500 Mg Tab.Er.24h PO 1,000 mg BEDTIME NATALIA Administration Haloperidol 7.5 mg 11/22/24 21:00 11/24/24 08:40 Haloperidol 5 Mg Tablet PO 7.5 mg BID NATALIA Administration Lorazepam 1 mg 11/22/24 17:35 11/24/24 11:24 Lorazepam 1 Mg Tablet PO 1 mg TID PRN Administration severe anxiety Nitrofurantoin Macrocrystals 100 mg 11/22/24 21:00 11/24/24 08:40 Nitrofurantoin Monohyd/M-Cryst 100 Mg Capsule PO 11/27/24 20:59 100 mg BID NATALIA Administration Olanzapine 10 mg 11/22/24 17:35 11/24/24 08:44 Olanzapine 10 Mg Tablet PO 10 mg Q6H PRN Administration Agitation Olanzapine 10 mg 11/22/24 21:00 11/24/24 08:40 Olanzapine Odt 10 Mg Tab.Rapdis TRANSLINGU 10 mg BID NATALIA Administration Discontinued Medications Generic Name Dose Route Start Last Admin Trade Name Freq PRN Reason Stop Dose Admin Acetaminophen 650 mg 11/23/24 04:07 11/23/24 04:09 Acetaminophen 325 Mg Tablet PO 11/23/24 04:08 650 mg ONCE ONE Administration Acetaminophen 650 mg 11/23/24 09:34 11/23/24 10:51 Acetaminophen 325 Mg Tablet PO 11/23/24 09:35 650 mg ONCE ONE Administration Ibuprofen 600 mg 11/24/24 11:20 11/24/24 11:23 Ibuprofen 600 Mg Tablet PO 11/24/24 11:21 600 mg ONCE ONE Administration Medical Decision Making Medical Decision Making MDM Narrative: 39 yo female well known to us PM of bipolar, schizoaffective disorder, PTSD now here with SI and depressed related to patient not having a PCP. She denies medical complaints to me will obtain labs and refer to CARE team Differential Diagnosis Differential Diagnoses: The differential diagnosis associated with the presentation includes bipolar, PTSD Admission/Observation Consideration of admission/observation: Escalation of care including admission/observation considered physician observation started at 1137am pending CARE team Consult Healthcare Provider Management of the patient was discussed with: Behavioral Health Provider Lab Data [facility] Lab Attestation statement: I reviewed the patient's lab results. 11/22/24 21:19 11/22/24 21:19 Labs: Lab Results 11/22/24 11/22/24 Range/Units 16:14 21:19 WBC 7.3 (4.8-10.8) X10*3/uL RBC 4.00 L D (4.20-5.50) X10*6/uL Hgb 11.5 L (12.0-16.0) g/dl Hct 35.1 L (37.0-47.0) % MCV 87.8 (80.0-98.0) fL MCH 28.8 (27.0-33.0) pg MCHC 32.8 (31.0-35.0) g/dl RDW 13.1 (11.0-16.0) % Plt Count 342 (160-400) X10*3/uL MPV 8.8 L (9.4-12.3) fL Immature Gran % (Auto) 2.1 H (0.0-0.4) % Neut % (Auto) 59.9 (45-73) % Lymph % (Auto) 30.0 (20-40) % [place] % (Auto) 5.7 (2-11) % Eos % (Auto) 1.9 (0-4) % Baso % (Auto) 0.4 (0-2) % Lymph # (Auto) 2.2 (1.2-4.9) X10*3/uL [place] # (Auto) 0.4 (0.1-1.2) X10*3/uL Eos # (Auto) 0.1 (0.0-0.4) X10*3/uL Baso # (Auto) 0.0 (0.0-0.2) X10*3/uL Abs Immat Gran (auto) 0.15 H (0.00-0.03) X10*3/uL Absolute Neuts (auto) 4.4 (2.0-8.3) x10*3/uL Absolute Nucleated RBC 0.000 (0.0-0.012) X10*3/uL Nucleated RBC % (auto) 0.0 (0.0-0.2) /100WBC Sodium 142 (135-145) mmol/L Potassium 4.1 (3.3-5.1) mmol/L Chloride 111 H (96-108) mmol/L Carbon Dioxide 26 (22-29) mmol/L Anion Gap 9 L (12-20) BUN 12 (9-16) mg/dL Creatinine 0.70 (0.5-1.4) mg/dL Estim Creat Clear Calc 112.5 Estimated GFR > 60 Random Glucose 77 (60-115) mg/dL Calcium 8.5 (8.4-10.2) mg/dL Total Bilirubin 0.4 (0.0-1.0) mg/dL AST 9 (5-31) U/L ALT 21 (0-31) U/L Alkaline Phosphatase 90 (39-117) U/L Total Protein 6.7 (6.5-8.0) g/dL Albumin 3.7 (3.5-5.0) g/dL Urine Color Dark Yellow Urine Appearance Clear Urine pH 6.5 (5.0-9.0) Ur Specific [place] 1.010 (1.005-1.025) Urine Protein Negative (Neg-Trace) mg/dL Urine Glucose (UA) Negative (Negative) mg/dL Urine Ketones Negative (Negative) mg/dL Urine Blood Large (3+) H (Negative) Urine Nitrite Positive H (Negative) Ur Leukocyte Esterase Small (1+) H (Negative) Urine RBC 11-20 H (0-2) /HPF Urine WBC 0-5 (0-5) /HPF Ur Squamous Epith Cells 3-5 (0-2) /HPF Urine Bacteria None Seen (None Seen) Hyaline Casts 0-2 (0-2) /LPF Urine Test NEGATIVE (NEGATIVE) Urine Opiates Screen Not Detected (Not Detect) Ur Buprenorphine Scrn Not Detected (Not Detect) ng/mL Ur Oxycodone Screen Not Detected (Not Detect) ng/mL Urine Methadone Screen Not Detected (Not Detect) ng/mL Urine Fentanyl Screen Not Detected (Not Detect) Ur Barbiturates Screen Not Detected (Not Detect) Valproic Acid 12.5 L (50.0-100.0) mcg/mL Ur Phencyclidine Scrn Not Detected (Not Detect) Ur Amphetamines Screen Not Detected (Not Detect) U Benzodiazepines Scrn Not Detected (Not Detect) Urine Cocaine Screen Not Detected (Not Detect) U Marijuana (THC) Screen Not Detected (Not Detect) Ethyl Alcohol < 10 mg/dL Independent Historian Clinical information obtained from an independent historian. History obtained from or confirmed by: EMS External Record Review External record reviewed: Inpatient record and Outpatient record Social Determinants Patient?s care significantly limited by Social Determinants of Health including: Inadequate housing and Problems related to primary support group Discharge Plan Discharge Clinical Impression: Suicidal ideation Patient Disposition: Admitted As Inpatient Interventions: [place]-Suicide Risk Severity Scale Last Done: 11/23/24 11:00 Admission Worksheet (ED) Last Done: 11/24/24 12:32 Discharge Date/Time: 11/24/24 12:33
--- NOTE | 2024-11-22 11:29 | PC.NURSE ---
Patient refusing to participate in care, refusing to speak with registration, allow for blood draw or give urine sample. Pt states No, later when asked to give blood
--- OUTSIDE RECORDS SUMMARY | 2024-11-22 12:35 | XMS_ITS | Clinical Summary ---
Author Organization [facility] Address [address] [place] [address] Phone Care Team Providers Care Manager Inventory Name Role Phone Physician, Pcp Unknown Primary [...] patient's age to complete this topic Insurance [facility] Member Subscriber Plan / Payer (Ef fective 2024-Present) Name:Samaria Corley Member ID:[id number] Relation to Subscriber:Self Name:Samaria Corley Subscriber ID:[id number] Payer ID:[id number] Group ID:Not on file Type:Not on file Address: [address] [id number] Care Teams Manager Inventory Relationship Specialty Start Date End Date Physician, Pcp Unknown PCP - General 08/02/24
--- OUTSIDE RECORDS SUMMARY | 2024-11-22 12:35 | XMS_ITS | Clinical Summary ---
Author Organization [facility] [place] [facility] Address [address] [place] [address] Care Team Providers Care Technical Operations Vice President Name Role Phone Roxie Guevara MD Primary Care Provider [phone] Allergies Active Allergy Reactions Criticality Noted Date [...] Never Assessed Tobacco Cessation:Counseling Given: Not Answered [facility] Utilities Answer Date Recorded In the past 12 months has [employer], [employer], or water [employer] threatened to shut off services in your [...] place to sleep or slept in a half-way (including now)? No 01/13/2024 Comments Unknown Sex [...] topic Insurance MEDICARE PART A & B [facility] MEDICARE OUT OF NETWORK [facility] Advance Directives * Full Code (Latest Code Status on File) Date Activated Date Inactivated Comments 01/11/2024 12:44 PM Care Teams Technical Operations Vice President Relationship Specialty Start Date End Date Roxie Guevara MD [address] [place] [address] PCP - General Family Medicine 01/13/24
--- NOTE | 2024-11-22 13:28 | MHC.CARE ---
Attempted to conduct assessment and Pt refused to engage and would not answer questions. Will try to assess again.
--- NOTE | 2024-11-22 14:04 | PC.NURSE ---
Pt continues to refuse to participate in care
[2024-11-22 16:29] LABS: Appearance Urine Clear; Glucose Urine UA Negative (Negative); PH 6.5 (5.0-9.0); Specific Gravity - Urine 1.010 (1.005-1.025); UMIC TRIGGER UACC YES
[2024-11-22 16:30] LABS: UPreg QC Valid YES
[2024-11-22 16:38] LABS: Cannabinoid Screen Urine Not Detected (Not Detect)
--- NOTE | 2024-11-22 16:59 | PC.NURSE ---
Pt refusing to give bloodwork but was willing to provide urine sample
[2024-11-22 17:12] LABS: UACC Culture Trigger YES
--- NOTE | 2024-11-22 17:44 | PC.NURSE ---
RE: med rec this RN completed pts med rec with information from pt's last stay as she took meds the last time she was here, but not since
[2024-11-22] MEDS: OLANZapine ODT 10 MG TAB.RAPDIS TRANSLINGU (21:01)
[2024-11-22 21:26] VITALS: BP 124/69; PULSE 93; RESP 18; TEMP 37; O2SAT 96
[2024-11-22 21:26] LABS: MANUAL DIFF FLAG NO
[2024-11-22 21:27] LABS: Hematocrit 35.1 % (37.0-47.0); Hemoglobin 11.5 g/dl (12.0-16.0); Imm Gran Abs Auto 0.15 X10*3/uL (0.00-0.03); Imm Gran Pct Auto 2.1 % (0.0-0.4); Lymphocytes Absolute Auto 2.2 X10*3/uL (1.2-4.9); Mean Corpuscular HGB Conc 32.8 g/dl (31.0-35.0); Mean Corpuscular Hemoglobin 28.8 pg (27.0-33.0); Mean Corpuscular Volume 87.8 fL (80.0-98.0); NRBC Abs Auto 0.000 X10*3/uL (0.0-0.012); NRBC Pct Auto 0.0 /100WBC (0.0-0.2); Platelet Count 342 X10*3/uL (160-400); Red Blood Count 4.00 X10*6/uL (4.20-5.50); White Blood Count 7.3 X10*3/uL (4.8-10.8)
[2024-11-22 21:48] LABS: Alanine Aminotransferase 21 U/L (0-31); Albumin Level 3.7 g/dL (3.5-5.0); Alkaline Phosphatase 90 U/L (39-117); Anion Gap 9 (12-20); Aspartate Amino Transferase 9 U/L (5-31); Blood Urea Nitrogen 12 mg/dL (9-16); Calcium 8.5 mg/dL (8.4-10.2); Carbon Dioxide 26 mmol/L (22-29); Chloride 111 mmol/L (96-108); Creatinine Clr Calc Pharmacy 112.5; Estimated Glomerular Filt Rate > 60; Potassium 4.1 mmol/L (3.3-5.1); Sodium 142 mmol/L (135-145); Total Protein 6.7 g/dL (6.5-8.0)
--- NOTE | 2024-11-23 | PC.NURSE ---
Took over care from MOE Tamez, pt sleeping at this time.
--- NOTE | 2024-11-23 02:38 | PC.NURSE ---
pt is sleeping
--- NOTE | 2024-11-23 07:44 | ECG_ITS ---
Test Reason : prolonged qt Blood Pressure : */* mmHG Vent. Rate : 92 BPM Atrial Rate : 92 BPM P-R Int : 132 ms QRS Dur : 86 ms QT Int : 350 ms P-R-T Axes : 54 56 26 degrees QTcB Int : 432 ms Normal sinus rhythm Normal ECG When compared with ECG of 26-Oct-2024 08:09, No significant change was found Referred By: Tanvi Sen Electronically Signed By: Ramana Way
[2024-11-23] MEDS: OLANZapine ODT 10 MG TAB.RAPDIS TRANSLINGU ×2 (08:37→20:25)
[2024-11-23] MEDS: Albuterol Sulfate 90 MCG 8 GM INHALER 2 PUFF INHALE ×2 (09:00→13:51)
[2024-11-23 09:06] VITALS: BP 154/95; PULSE 102; RESP 20; TEMP 36.3; O2SAT 91
[2024-11-23 20:21] VITALS: BP 169/90; PULSE 85; RESP 18; TEMP 36.6; O2SAT 100
--- NOTE | 2024-11-23 21:58 | PHA.MEDREC ---
Addendum entered by Avtar Veras PharmD 11/24/24 07:10: pt note from October states she ran out of refills on Geodon months before. Addendum entered by Raffi Mancilla jewels 11/23/24 22:18: Med rec reviewed, will follow up with [facility] in am Original Note: Pharmacy Consult ? Medication Reconciliation Pharmacy confirmed med rec done by nursing. Went to speak with pt this afternoon and pt was asleep, I called pt pharmacy ([facility], [facility]) and they confirmed the pt most recent fills (Acetaminophen, Albuterol, Benadryl, Cetirizine, Cyclobenzaprine, Divalproex, Flonase, Haloperidol, Hydroxyzine, Incruse Inhaler, Meclizine, Montelukast, Olanzapine disintegrating tab, Pyridium and Trazodone); I updated and added those to the med rec. Went back to speak with pt and pt has on hand a written list of medications; most of them matched what we had on our med list except pt wrote and states she still takes Atorvastatin, Advair, Nabumetone and Ziprasidone but we have no claims for those and [facility] did not bring those up and they were close when I spoke again with pt; will have Am team follow up with [facility] about those meds.
[2024-11-24] MEDS: Albuterol Sulfate 90 MCG 8 GM INHALER 2 PUFF INHALE ×3 (05:37→20:26)
[2024-11-24 06:00] VITALS: RESP 16
[2024-11-24 06:19] VITALS: RESP 16
--- NOTE | 2024-11-24 06:57 | PC.NURSE ---
Assumed care of patient at 0645, patient appears to be in no apparent distress this am, sleeping, respirations even and unlabored. Continue plan of care for inpatient bedsearch
[2024-11-24 08:40] VITALS: BP 162/102; PULSE 93; RESP 16; TEMP 36.8; O2SAT 98
[2024-11-24] MEDS: OLANZapine ODT 10 MG TAB.RAPDIS TRANSLINGU ×2 (08:40→20:27)
[2024-11-24 13:38] VITALS: BMI 40.9
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
--- NOTE | 2024-11-24 16:47 | PC.ADMIT ---
Patient was admitted from the ED POD on a CV with a dx of Schizoaffective Disorder and PTSD Unspecified. Patient was admitted after reporting increasing SI and an anxiety attack after realizing she had lost her PCP, and thus unable to get a refill on her medications. Upon approach, pt is pleasant, calm and cooperative. Thought process is linear and pt is goal oriented I'm hoping to get into a [facility] house or respite, I just don't want to go back on the streets . She denies SI/HI/AVH, along with current feelings of anxiety/depression I feel okay right now that I'm here . Pt has hx of inpatient psych admissions, with a most recent discharge from on 11/16/24. Tox was negative and pt reports poor sleep/appetite r/t being homeless. Skin check unremarkable, placed on 15 minute checks.
[2024-11-24 20:00] VITALS: BP 138/74; PULSE 100; RESP 16; TEMP 36.9; O2SAT 98
[2024-11-25 07:00] VITALS: BMI 40.6
[2024-11-25 07:35] VITALS: BP 158/92; PULSE 95; RESP 18; TEMP 36.7; O2SAT 99
[2024-11-25] MEDS: Albuterol Sulfate 90 MCG 8 GM INHALER 2 PUFF INHALE ×2 (07:44→14:48)
[2024-11-25] MEDS: OLANZapine ODT 10 MG TAB.RAPDIS TRANSLINGU ×2 (08:31→20:25)
[2024-11-25 08:56] VITALS: BP 158/92; PULSE 95; RESP 18; TEMP 36.6; O2SAT 99
[2024-11-25] MEDS: Fluticasone/Vilanterol 100/25 BLST.W.DEV 1 PUFF INHALE (08:58)
[2024-11-25] MEDS: Tiotropium Bromide 2.5 mcg 1 PUFF/2.5 MCG MIST.INHAL 2 PUFF INHALE (08:59)
--- NOTE | 2024-11-25 13:23 | HO.PSYCHPN ---
Subjective Subjective Date of Service: 11/25/24 Reason For Visit: SI Interim History: calm, cooperative, pleasant. happy with medications regimen. feeling well, no questions or complaints. per staff, +RIS. slept 9 hours. Mental Status Exam Mental Status Exam Narrative: adequately dressed and groomed. cooperative. no PMA/PMR. fair eye contact. speech decr rate, amount, loudness. flattened tone. thoughts linear and logical. affect constricted, normo-intense, non-labile. mood well. no SI/SIBI/HI/VH expressed. denies AH. Diagnostics Vital Signs (24Hr): Vital Signs - 24 hr 11/24/24 20:00 11/25/24 07:35 11/25/24 08:56 Temperature 98.5 F 98.0 F 98 F Pulse Rate 100 95 95 Respiratory Rate 16 18 18 Blood Pressure 138/74 158/92 H 158/92 H Pulse Oximetry 98 99 99 Oxygen Delivery Method Room Air Room Air Room Air BMI result Body Mass Index 40.9 Labs 11/22/24 21:19 11/22/24 21:19 Medications Medications Current Medications Acetaminophen (Acetaminophen 325 Mg Tablet) 650 mg PO Q6H PRN PRN Reason: fever Al Hydroxide/Mg Hydroxide (Magnesium Hydrox/Alum Hydrox 30 Ml Oral.Susp) 30 ml PO Q6H PRN PRN Reason: Heartburn/Nausea Albuterol Sulfate (Albuterol Sulfate 90 Mcg 8 Gm Inhaler) 2 puff INHALE QID PRN PRN Reason: Shortness of Breath Last Admin: 11/25/24 07:44 Dose: 2 puff Atorvastatin Calcium (Atorvastatin Calcium 10 Mg Tablet) 10 mg PO BEDTIME [facility] Last Admin: 11/24/24 20:27 Dose: 10 mg Cyclobenzaprine HCl (Cyclobenzaprine Hcl 10 Mg Tablet) 10 mg PO TID PRN PRN Reason: Muscle Spasm Diphenhydramine HCl (Diphenhydramine Hcl 25 Mg Capsule) 50 mg PO QID PRN PRN Reason: Allergy symptoms Divalproex Sodium (Divalproex Sodium Er 500 Mg Tab.Er.24h) 1,000 mg PO BEDTIME [facility] Last Admin: 11/24/24 20:28 Dose: 1,000 mg Fluticasone Propionate (Fluticasone Propionate Nasal 16 Gm [place]) 1 spray NOSTRIL-B DAILY [facility] Last Admin: 11/25/24 10:49 Dose: Not Given Fluticasone/Vilanterol (Fluticasone/Vilanterol 100/25 Blst.W.Dev) 1 puff INHALE RDAILY [facility] Last Admin: 11/25/24 08:58 Dose: 1 puff Haloperidol (Haloperidol 5 Mg Tablet) 7.5 mg PO BID [facility] Last Admin: 11/25/24 08:31 Dose: 7.5 mg Hydroxyzine HCl (Hydroxyzine Hcl 25 Mg Tablet) 25 mg PO Q6H PRN PRN Reason: mild anxiety Ibuprofen (Ibuprofen 400 Mg Tablet) 400 mg PO Q4H PRN PRN Reason: pain (pain scale 1-10) Last Admin: 11/25/24 09:02 Dose: 400 mg Loratadine (Loratadine 10 Mg Tablet) 10 mg PO DAILY PRN PRN Reason: Allergy Symptoms Lorazepam (Lorazepam 1 Mg Tablet) 1 mg PO TID PRN PRN Reason: severe anxiety Last Admin: 11/25/24 08:47 Dose: 1 mg Magnesium Hydroxide (Milk Of Magnesia 30 Ml Oral.Susp) 30 ml PO DAILY PRN PRN Reason: Constipation Meclizine HCl (Meclizine Hcl 12.5 Mg Tablet) 12.5 mg PO Q8H PRN PRN Reason: dizziness Last Admin: 11/25/24 10:33 Dose: 12.5 mg Nicotine Polacrilex (Nicotine Polacrilex 2 Mg Gum) 4 mg BUCCAL Q2H PRN PRN Reason: Nicotine Cravings Nitrofurantoin Macrocrystals (Nitrofurantoin Monohyd/M-Cryst 100 Mg Capsule) 100 mg PO BID [facility] Stop: 11/27/24 20:59 Last Admin: 11/25/24 08:31 Dose: 100 mg Olanzapine (Olanzapine 10 Mg Tablet) 10 mg PO Q6H PRN PRN Reason: Agitation Last Admin: 11/24/24 08:44 Dose: 10 mg Olanzapine (Olanzapine Odt 10 Mg Tab.Rapdis) 10 mg TRANSLINGU BID [facility] Last Admin: 11/25/24 08:31 Dose: 10 mg Tiotropium [place] (Tiotropium [place] 2.5 Mcg 1 Puff/2.5 Mcg Mist.Inhal) 2 puff INHALE RDAILY [facility] Last Admin: 11/25/24 08:59 Dose: 2 puff Trazodone HCl (Trazodone Hcl 50 Mg Tablet) 50 mg PO BEDTIME [facility] Last Admin: 11/24/24 20:26 Dose: 50 mg Allergies Allergies Allergy/AdvReac Type Severity Reaction Status Date / Time animal dander (PET DANDER) Allergy Unknown Itching Verified 11/22/24 10:34 bee pollen (BEE STINGS) Allergy Unknown Swelling Verified 11/21/24 17:22 house dust Allergy Unknown Unknown Verified 11/21/24 17:22 shellfish derived (SHELLFISH Allergy Unknown Swelling Verified 11/21/24 17:22 DERIVED) Seasonal Allergies Allergy Itching Verified 11/21/24 17:22 Assessment & Plan Assessment & Plan (1) PTSD (post-traumatic stress disorder): Status: Acute Code(s): F43.10 - Post-traumatic stress disorder, unspecified (2) Schizoaffective disorder: Qualifiers: Schizoaffective disorder type: unspecified Qualified Code(s): F25.9 - Schizoaffective disorder, unspecified Status: Acute Code(s): F25.9 - Schizoaffective disorder, unspecified Plan 11/24: meds reviewed, reconciled, prescribed. will continue psych regimen at recent discharge from . pt asking for referrals to respite and/or snf house. 11/25: calm, cooperative, pleasant. per staff, +RIS. denies psychotic Sx to MD. content with current regimen. continue current mgmt. in need of housing. Reason for continued inpatient stay Substantial Risk for: harm to self and inability to function Time Spent With Patient Time: Total time managing care of this patient today __25__ minutes.
[2024-11-26] MEDS: Albuterol Sulfate 90 MCG 8 GM INHALER 2 PUFF INHALE ×2 (06:38→13:51)
[2024-11-26 08:00] VITALS: BP 130/73; PULSE 99; RESP 16; TEMP 36.8; O2SAT 98
[2024-11-26] MEDS: Fluticasone/Vilanterol 100/25 BLST.W.DEV 1 PUFF INHALE (08:09)
[2024-11-26] MEDS: Tiotropium Bromide 2.5 mcg 1 PUFF/2.5 MCG MIST.INHAL 2 PUFF INHALE (08:10)
[2024-11-26] MEDS: OLANZapine ODT 10 MG TAB.RAPDIS TRANSLINGU ×2 (08:11→19:58)
--- NOTE | 2024-11-26 11:42 | P.PNPSI_ITS ---
Subjective Subjective Date of Service: 11/26/24 Reason For Visit: SI Interim History: asleep in bed, not rousable to loud voice. per SW, willing to DC to respite bed friday. per staff, flat, guarded, visible. some groups. pleasant. polite. slept eves, then overnight. no observed RIS. Mental Status Exam Mental Status Exam Narrative: sleeping soundly in bed, covered by blanket. not rousable to loud voice. Diagnostics Vital Signs (24Hr): Vital Signs - 24 hr 11/26/24 08:00 Temperature 98.2 F Pulse Rate 99 Respiratory Rate 16 Blood Pressure 130/73 Pulse Oximetry 98 Oxygen Delivery Method Room Air BMI result Body Mass Index 40.6 Labs 11/22/24 21:19 11/22/24 21:19 Medications Medications Current Medications Acetaminophen (Acetaminophen 325 Mg Tablet) 650 mg PO Q6H PRN PRN Reason: fever Al Hydroxide/Mg Hydroxide (Magnesium Hydrox/Alum Hydrox 30 Ml Oral.Susp) 30 ml PO Q6H PRN PRN Reason: Heartburn/Nausea Albuterol Sulfate (Albuterol Sulfate 90 Mcg 8 Gm Inhaler) 2 puff INHALE QID PRN PRN Reason: Shortness of Breath Last Admin: 11/26/24 06:38 Dose: 2 puff Atorvastatin Calcium (Atorvastatin Calcium 10 Mg Tablet) 10 mg PO BEDTIME [facility] Last Admin: 11/25/24 20:25 Dose: 10 mg Cyclobenzaprine HCl (Cyclobenzaprine Hcl 10 Mg Tablet) 10 mg PO TID PRN PRN Reason: Muscle Spasm Last Admin: 11/26/24 09:04 Dose: 10 mg Diphenhydramine HCl (Diphenhydramine Hcl 25 Mg Capsule) 50 mg PO QID PRN PRN Reason: Allergy symptoms Divalproex Sodium (Divalproex Sodium Er 500 Mg Tab.Er.24h) 1,000 mg PO BEDTIME [facility] Last Admin: 11/25/24 20:25 Dose: 1,000 mg Fluticasone Propionate (Fluticasone Propionate Nasal 16 Gm [place]) 1 spray NOSTRIL-B DAILY [facility] Last Admin: 11/26/24 08:10 Dose: 1 spray Fluticasone/Vilanterol (Fluticasone/Vilanterol 100/25 Blst.W.Dev) 1 puff INHALE RDAILY [facility] Last Admin: 11/26/24 08:09 Dose: 1 puff Haloperidol (Haloperidol 5 Mg Tablet) 7.5 mg PO BID [facility] Last Admin: 11/26/24 08:11 Dose: 7.5 mg Hydroxyzine HCl (Hydroxyzine Hcl 25 Mg Tablet) 25 mg PO Q6H PRN PRN Reason: mild anxiety Ibuprofen (Ibuprofen 400 Mg Tablet) 400 mg PO Q4H PRN PRN Reason: pain (pain scale 1-10) Last Admin: 11/26/24 09:01 Dose: 400 mg Loratadine (Loratadine 10 Mg Tablet) 10 mg PO DAILY PRN PRN Reason: Allergy Symptoms Lorazepam (Lorazepam 1 Mg Tablet) 1 mg PO TID PRN PRN Reason: severe anxiety Last Admin: 11/26/24 09:35 Dose: 1 mg Magnesium Hydroxide (Milk Of Magnesia 30 Ml Oral.Susp) 30 ml PO DAILY PRN PRN Reason: Constipation Meclizine HCl (Meclizine Hcl 12.5 Mg Tablet) 12.5 mg PO Q8H PRN PRN Reason: dizziness Last Admin: 11/26/24 08:24 Dose: 12.5 mg Nicotine Polacrilex (Nicotine Polacrilex 2 Mg Gum) 4 mg BUCCAL Q2H PRN PRN Reason: Nicotine Cravings Nitrofurantoin Macrocrystals (Nitrofurantoin Monohyd/M-Cryst 100 Mg Capsule) 100 mg PO BID [facility] Stop: 11/27/24 20:59 Last Admin: 11/26/24 08:11 Dose: 100 mg Olanzapine (Olanzapine 10 Mg Tablet) 10 mg PO Q6H PRN PRN Reason: Agitation Last Admin: 11/24/24 08:44 Dose: 10 mg Olanzapine (Olanzapine Odt 10 Mg Tab.Rapdis) 10 mg TRANSLINGU BID [facility] Last Admin: 11/26/24 08:11 Dose: 10 mg Tiotropium [place] (Tiotropium [place] 2.5 Mcg 1 Puff/2.5 Mcg Mist.Inhal) 2 puff INHALE RDAILY [facility] Last Admin: 11/26/24 08:10 Dose: 2 puff Trazodone HCl (Trazodone Hcl 50 Mg Tablet) 50 mg PO BEDTIME [facility] Last Admin: 11/25/24 20:25 Dose: 50 mg Allergies Allergies Allergy/AdvReac Type Severity Reaction Status Date / Time animal dander (PET DANDER) Allergy Unknown Itching Verified 11/22/24 10:34 bee pollen (BEE STINGS) Allergy Unknown Swelling Verified 11/21/24 17:22 house dust Allergy Unknown Unknown Verified 11/21/24 17:22 shellfish derived (SHELLFISH Allergy Unknown Swelling Verified 11/21/24 17:22 DERIVED) Seasonal Allergies Allergy Itching Verified 11/21/24 17:22 Assessment & Plan Assessment & Plan (1) PTSD (post-traumatic stress disorder): Status: Acute Code(s): F43.10 - Post-traumatic stress disorder, unspecified (2) Schizoaffective disorder: Qualifiers: Schizoaffective disorder type: unspecified Qualified Code(s): F25.9 - Schizoaffective disorder, unspecified Status: Acute Code(s): F25.9 - Schizoaffective disorder, unspecified Plan 11/24: meds reviewed, reconciled, prescribed. will continue psych regimen at recent discharge from . pt asking for referrals to respite and/or alf house. 11/25: calm, cooperative, pleasant. per staff, +RIS. denies psychotic Sx to MD. content with current regimen. continue current mgmt. in need of housing. 11/26: sleeping a lot and well. no RIS observed. amenable to DC to respite on friday. Reason for continued inpatient stay Substantial Risk for: rapid decompensation Time Spent With Patient Time: Total time managing care of this patient today __25__ minutes.
[2024-11-26 20:00] VITALS: BP 116/61; PULSE 93; RESP 18; TEMP 36.9; O2SAT 96
[2024-11-27 07:05] VITALS: BP 136/83; PULSE 100; RESP 18; TEMP 36.5; O2SAT 96
[2024-11-27] MEDS: Albuterol Sulfate 90 MCG 8 GM INHALER 2 PUFF INHALE ×4 (07:31→20:48)
[2024-11-27] MEDS: Tiotropium Bromide 2.5 mcg 1 PUFF/2.5 MCG MIST.INHAL 2 PUFF INHALE (08:35)
[2024-11-27] MEDS: Fluticasone/Vilanterol 100/25 BLST.W.DEV 1 PUFF INHALE (08:35)
[2024-11-27] MEDS: OLANZapine ODT 10 MG TAB.RAPDIS TRANSLINGU ×2 (08:43→20:47)
--- NOTE | 2024-11-27 17:12 | HO.PSYCHPN ---
Subjective Subjective Date of Service: 11/27/24 Reason For Visit: SI Subjective Notes: Conditional Voluntary Interim History: Active on unit. pt reports feeling good; reports she is looking forward to going to respite. per nursing, slept 7 hours last night. denies any issues at this time. denies SI/HI/VH/AH. Continue current tx plan. Medication Compliance: Yes Side effects from medications: No Mental Status Exam Mental Status Exam Patient Appearance: Appropriate Patient Orientation: Person, Place, Time and Situation Level of Consciousness: Awake and Alert Patient Behavior: Appropriate and Cooperative Mood Description: Calm Affect Description: Calm Ability to Follow Directions: Good Speech Pattern: Clear Memory Description: Intact Hallucinations: None Delusions: Not Present Thought Process: Intact Thought Content: positive for Intact Diagnostics Vital Signs (24Hr): Vital Signs - 24 hr 11/26/24 20:00 11/27/24 07:05 Temperature 98.5 F 97.7 F Pulse Rate 93 100 Respiratory Rate 18 18 Blood Pressure 116/61 136/83 Pulse Oximetry 96 96 Oxygen Delivery Method Room Air Room Air BMI result Body Mass Index 40.6 Labs 11/22/24 21:19 11/22/24 21:19 Medications Medications Current Medications Acetaminophen (Acetaminophen 325 Mg Tablet) 650 mg PO Q6H PRN PRN Reason: fever Al Hydroxide/Mg Hydroxide (Magnesium Hydrox/Alum Hydrox 30 Ml Oral.Susp) 30 ml PO Q6H PRN PRN Reason: Heartburn/Nausea Albuterol Sulfate (Albuterol Sulfate 90 Mcg 8 Gm Inhaler) 2 puff INHALE QID PRN PRN Reason: Shortness of Breath Last Admin: 11/27/24 14:26 Dose: 2 puff Atorvastatin Calcium (Atorvastatin Calcium 10 Mg Tablet) 10 mg PO BEDTIME [facility] Last Admin: 11/26/24 19:58 Dose: 10 mg Cyclobenzaprine HCl (Cyclobenzaprine Hcl 10 Mg Tablet) 10 mg PO TID PRN PRN Reason: Muscle Spasm Last Admin: 11/26/24 16:33 Dose: 10 mg Diphenhydramine HCl (Diphenhydramine Hcl 25 Mg Capsule) 50 mg PO QID PRN PRN Reason: Allergy symptoms Divalproex Sodium (Divalproex Sodium Er 500 Mg Tab.Er.24h) 1,000 mg PO BEDTIME [facility] Last Admin: 11/26/24 19:58 Dose: 1,000 mg Fluticasone Propionate (Fluticasone Propionate Nasal 16 Gm [place]) 1 spray NOSTRIL-B DAILY [facility] Last Admin: 11/27/24 08:48 Dose: 1 spray Fluticasone/Vilanterol (Fluticasone/Vilanterol 100/ Blst.W.Dev) 1 puff INHALE RDAILY [facility] Last Admin: 11/27/24 08:35 Dose: 1 puff Haloperidol (Haloperidol 5 Mg Tablet) 7.5 mg PO BID [facility] Last Admin: 11/27/24 08:43 Dose: 7.5 mg Hydroxyzine HCl (Hydroxyzine Hcl 25 Mg Tablet) 25 mg PO Q6H PRN PRN Reason: mild anxiety Ibuprofen (Ibuprofen 400 Mg Tablet) 400 mg PO Q4H PRN PRN Reason: pain (pain scale 1-10) Last Admin: 11/27/24 10:20 Dose: 400 mg Loratadine (Loratadine 10 Mg Tablet) 10 mg PO DAILY PRN PRN Reason: Allergy Symptoms Lorazepam (Lorazepam 0.5 Mg Tablet) 0.5 mg PO DAILY PRN PRN Reason: severe anxiety Last Admin: 11/26/24 17:29 Dose: 0.5 mg Magnesium Hydroxide (Milk Of Magnesia 30 Ml Oral.Susp) 30 ml PO DAILY PRN PRN Reason: Constipation Meclizine HCl (Meclizine Hcl 12.5 Mg Tablet) 12.5 mg PO Q8H PRN PRN Reason: dizziness Last Admin: 11/27/24 08:48 Dose: 12.5 mg Nicotine Polacrilex (Nicotine Polacrilex 2 Mg Gum) 4 mg BUCCAL Q2H PRN PRN Reason: Nicotine Cravings Nitrofurantoin Macrocrystals (Nitrofurantoin Monohyd/M-Cryst 100 Mg Capsule) 100 mg PO BID [facility] Stop: 11/27/24 20:59 Last Admin: 11/27/24 08:44 Dose: 100 mg Olanzapine (Olanzapine 10 Mg Tablet) 10 mg PO Q6H PRN PRN Reason: Agitation Last Admin: 11/24/24 08:44 Dose: 10 mg Olanzapine (Olanzapine Odt 10 Mg Tab.Rapdis) 10 mg TRANSLINGU BID [facility] Last Admin: 11/27/24 08:43 Dose: 10 mg Tiotropium [place] (Tiotropium [place] 2.5 Mcg 1 Puff/2.5 Mcg Mist.Inhal) 2 puff INHALE RDAILY [facility] Last Admin: 11/27/24 08:35 Dose: 2 puff Trazodone HCl (Trazodone Hcl 50 Mg Tablet) 50 mg PO BEDTIME [facility] Last Admin: 11/26/24 19:58 Dose: 50 mg Allergies Allergies Allergy/AdvReac Type Severity Reaction Status Date / Time animal dander (PET DANDER) Allergy Unknown Itching Verified 11/22/24 10:34 bee pollen (BEE STINGS) Allergy Unknown Swelling Verified 11/21/24 17:22 house dust Allergy Unknown Unknown Verified 11/21/24 17:22 shellfish derived (SHELLFISH Allergy Unknown Swelling Verified 11/21/24 17:22 DERIVED) Seasonal Allergies Allergy Itching Verified 11/21/24 17:22 Assessment & Plan Assessment & Plan (1) PTSD (post-traumatic stress disorder): Status: Acute Code(s): F43.10 - Post-traumatic stress disorder, unspecified (2) Schizoaffective disorder: Qualifiers: Schizoaffective disorder type: unspecified Qualified Code(s): F25.9 - Schizoaffective disorder, unspecified Status: Acute Code(s): F25.9 - Schizoaffective disorder, unspecified Plan 11/24: meds reviewed, reconciled, prescribed. will continue psych regimen at recent discharge from . pt asking for referrals to respite and/or shelter house. 11/25: calm, cooperative, pleasant. per staff, +RIS. denies psychotic Sx to MD. content with current regimen. continue current mgmt. in need of housing. 11/26: sleeping a lot and well. no RIS observed. amenable to DC to respite on friday. 11/27: Active on unit. pt reports feeling good; reports she is looking forward to going to respite. per nursing, slept 7 hours last night. denies any issues at this time. denies SI/HI/VH/AH. Continue current tx plan. Patient educated on: diagnosis and medication risk/benefits Reason for continued inpatient stay Substantial Risk for: med/psych decompensation Time Spent With Patient Time: Total time managing care of this patient today _20___ minutes.
[2024-11-27 20:00] VITALS: BP 144/62; PULSE 90; RESP 16; TEMP 37.2; O2SAT 99
[2024-11-28 08:00] VITALS: BP 153/90; PULSE 90; RESP 20; TEMP 36.4; O2SAT 97
[2024-11-28] MEDS: Tiotropium Bromide 2.5 mcg 1 PUFF/2.5 MCG MIST.INHAL 2 PUFF INHALE (08:52)
[2024-11-28] MEDS: Fluticasone/Vilanterol 100/25 BLST.W.DEV 1 PUFF INHALE (08:52)
[2024-11-28] MEDS: OLANZapine ODT 10 MG TAB.RAPDIS TRANSLINGU ×2 (08:54→21:19)
[2024-11-28] MEDS: Albuterol Sulfate 90 MCG 8 GM INHALER 2 PUFF INHALE (15:52)
--- NOTE | 2024-11-28 17:09 | HO.PSYCHPN ---
Subjective Subjective Date of Service: 11/28/24 Reason For Visit: SI Subjective Notes: Conditional Voluntary Interim History: Patient continues to report feeling good; active on unit. medication compliant. denies any issues at this time. denies SI/HI/VH/AH. Continue current tx plan. Medication Compliance: Yes Side effects from medications: No Attending Groups: Intermittent Mental Status Exam Mental Status Exam Patient Appearance: Appropriate Patient Orientation: Person, Place, Time and Situation Level of Consciousness: Awake and Alert Patient Behavior: Appropriate and Cooperative Mood Description: Calm Affect Description: Calm Ability to Follow Directions: Good Speech Pattern: Clear Memory Description: Intact Hallucinations: None Delusions: Not Present Thought Process: Intact Thought Content: positive for Intact Diagnostics Vital Signs (24Hr): Vital Signs - 24 hr 11/27/24 20:00 11/28/24 08:00 Temperature 99.0 F 97.5 F Pulse Rate 90 90 Respiratory Rate 16 20 Blood Pressure 144/62 H 153/90 H Pulse Oximetry 99 97 Oxygen Delivery Method Room Air Room Air BMI result Body Mass Index 40.6 Labs 11/22/24 21:19 11/22/24 21:19 Medications Medications Current Medications Acetaminophen (Acetaminophen 325 Mg Tablet) 650 mg PO Q6H PRN PRN Reason: fever Al Hydroxide/Mg Hydroxide (Magnesium Hydrox/Alum Hydrox 30 Ml Oral.Susp) 30 ml PO Q6H PRN PRN Reason: Heartburn/Nausea Albuterol Sulfate (Albuterol Sulfate 90 Mcg 8 Gm Inhaler) 2 puff INHALE QID PRN PRN Reason: Shortness of Breath Last Admin: 11/28/24 15:52 Dose: 2 puff Atorvastatin Calcium (Atorvastatin Calcium 10 Mg Tablet) 10 mg PO BEDTIME [facility] Last Admin: 11/27/24 20:47 Dose: 10 mg Cyclobenzaprine HCl (Cyclobenzaprine Hcl 10 Mg Tablet) 10 mg PO TID PRN PRN Reason: Muscle Spasm Last Admin: 11/28/24 11:33 Dose: 10 mg Diphenhydramine HCl (Diphenhydramine Hcl 25 Mg Capsule) 50 mg PO QID PRN PRN Reason: Allergy symptoms Divalproex Sodium (Divalproex Sodium Er 500 Mg Tab.Er.24h) 1,000 mg PO BEDTIME [facility] Last Admin: 11/27/24 20:46 Dose: 1,000 mg Fluticasone Propionate (Fluticasone Propionate Nasal 16 Gm [place]) 1 spray NOSTRIL-B DAILY [facility] Last Admin: 11/28/24 08:52 Dose: 1 spray Fluticasone/Vilanterol (Fluticasone/Vilanterol 100/25 Blst.W.Dev) 1 puff INHALE RDAILY [facility] Last Admin: 11/28/24 08:52 Dose: 1 puff Haloperidol (Haloperidol 5 Mg Tablet) 7.5 mg PO BID [facility] Last Admin: 11/28/24 08:54 Dose: 7.5 mg Hydroxyzine HCl (Hydroxyzine Hcl 25 Mg Tablet) 25 mg PO Q6H PRN PRN Reason: mild anxiety Ibuprofen (Ibuprofen 400 Mg Tablet) 400 mg PO Q4H PRN PRN Reason: pain (pain scale 1-10) Last Admin: 11/27/24 10:20 Dose: 400 mg Loratadine (Loratadine 10 Mg Tablet) 10 mg PO DAILY PRN PRN Reason: Allergy Symptoms Lorazepam (Lorazepam 0.5 Mg Tablet) 0.5 mg PO DAILY PRN PRN Reason: severe anxiety Last Admin: 11/26/24 17:29 Dose: 0.5 mg Magnesium Hydroxide (Milk Of Magnesia 30 Ml Oral.Susp) 30 ml PO DAILY PRN PRN Reason: Constipation Meclizine HCl (Meclizine Hcl 12.5 Mg Tablet) 12.5 mg PO Q8H PRN PRN Reason: dizziness Last Admin: 11/27/24 08:48 Dose: 12.5 mg Nicotine Polacrilex (Nicotine Polacrilex 2 Mg Gum) 4 mg BUCCAL Q2H PRN PRN Reason: Nicotine Cravings Nystatin (Nystatin Cream 15 Gm [place]) 1 appl TOPICAL BID [facility]; Protocol Last Admin: 11/28/24 08:54 Dose: Not Given Olanzapine (Olanzapine 10 Mg Tablet) 10 mg PO Q6H PRN PRN Reason: Agitation Last Admin: 11/24/24 08:44 Dose: 10 mg Olanzapine (Olanzapine Odt 10 Mg Tab.Rapdis) 10 mg TRANSLINGU BID [facility] Last Admin: 11/28/24 08:54 Dose: 10 mg Tiotropium [place] (Tiotropium [place] 2.5 Mcg 1 Puff/2.5 Mcg Mist.Inhal) 2 puff INHALE RDAILY [facility] Last Admin: 11/28/24 08:52 Dose: 2 puff Trazodone HCl (Trazodone Hcl 50 Mg Tablet) 50 mg PO BEDTIME [facility] Last Admin: 11/27/24 20:47 Dose: 50 mg Allergies Allergies Allergy/AdvReac Type Severity Reaction Status Date / Time animal dander (PET DANDER) Allergy Unknown Itching Verified 11/22/24 10:34 bee pollen (BEE STINGS) Allergy Unknown Swelling Verified 11/21/24 17:22 house dust Allergy Unknown Unknown Verified 11/21/24 17:22 shellfish derived (SHELLFISH Allergy Unknown Swelling Verified 11/21/24 17:22 DERIVED) Seasonal Allergies Allergy Itching Verified 11/21/24 17:22 Assessment & Plan Assessment & Plan (1) PTSD (post-traumatic stress disorder): Status: Acute Code(s): F43.10 - Post-traumatic stress disorder, unspecified (2) Schizoaffective disorder: Qualifiers: Schizoaffective disorder type: unspecified Qualified Code(s): F25.9 - Schizoaffective disorder, unspecified Status: Acute Code(s): F25.9 - Schizoaffective disorder, unspecified Plan 11/24: meds reviewed, reconciled, prescribed. will continue psych regimen at recent discharge from . pt asking for referrals to respite and/or detention house. 11/25: calm, cooperative, pleasant. per staff, +RIS. denies psychotic Sx to MD. content with current regimen. continue current mgmt. in need of housing. 11/26: sleeping a lot and well. no RIS observed. amenable to DC to respite on friday. 11/27: Active on unit. pt reports feeling good; reports she is looking forward to going to respite. per nursing, slept 7 hours last night. denies any issues at this time. denies SI/HI/VH/AH. Continue current tx plan. 11/28: Patient continues to report feeling good; active on unit. medication compliant. denies any issues at this time. denies SI/HI/VH/AH. Continue current tx plan. Patient educated on: diagnosis and medication risk/benefits Reason for continued inpatient stay Substantial Risk for: med/psych decompensation Time Spent With Patient Time: Total time managing care of this patient today _20___ minutes.
[2024-11-28 17:32] LABS: Ammonia 56 umol/L (13-55)
[2024-11-28 17:40] LABS: Alanine Aminotransferase 20 U/L (0-31); Albumin Level 4.1 g/dL (3.5-5.0); Alkaline Phosphatase 91 U/L (39-117); Aspartate Amino Transferase 12 U/L (5-31); Total Protein 7.3 g/dL (6.5-8.0)
[2024-11-28 19:20] VITALS: BP 117/62; PULSE 89; RESP 16; TEMP 37.1; O2SAT 98
--- NOTE | 2024-11-28 22:24 | PC.NURSE ---
patient requested to take to take her Lactulose in the morning
[2024-11-29] MEDS: Albuterol Sulfate 90 MCG 8 GM INHALER 2 PUFF INHALE (06:36)
[2024-11-29 07:47] VITALS: BP 113/64; PULSE 95; RESP 16; TEMP 36.7; O2SAT 97
[2024-11-29] MEDS: Tiotropium Bromide 2.5 mcg 1 PUFF/2.5 MCG MIST.INHAL 2 PUFF INHALE (08:39)
[2024-11-29] MEDS: Fluticasone/Vilanterol 100/25 BLST.W.DEV 1 PUFF INHALE (08:39)
[2024-11-29] MEDS: OLANZapine ODT 10 MG TAB.RAPDIS TRANSLINGU (08:42)
--- NOTE | 2024-11-29 09:39 | PM.PSYDC ---
DS: Providers Provider Date of Service: 11/29/24 Date of admission: 11/24/24 11:50 Date of discharge: 11/29/24 Primary care physician: Vikki Physician Attending physician on admission: Rajesh Ortiz Attending physician on discharge: Malik Amaya Discharging clinician: Ambika Jones DS: Diagnosis Discharge Diagnosis (1) PTSD (post-traumatic stress disorder): Status: Acute (2) Schizoaffective disorder: Status: Acute DS: Medications Discharge Medications Home Medications: Home Medications ?Medication ?Instructions ?Recorded ?Confirmed divalproex 500 mg tablet,extended 500 mg PO BEDTIME 11/22/24 11/23/24 release 24 hr (Depakote ER) montelukast 10 mg tablet 10 mg PO DAILY 11/23/24 11/23/24 phenazopyridine 100 mg tablet 100 mg PO TID PRN Pain 11/23/24 11/23/24 (Pyridium) umeclidinium 62.5 mcg/actuation 1 inh inhalation DAILY 11/23/24 11/23/24 blister powder for inhalation (Incruse Ellipta) Previous Rx's ?Medication ?Instructions ?Recorded hydroxyzine HCl 25 mg tablet 25 mg PO Q6H PRN mild anxiety #15 11/16/24 tabs olanzapine 10 mg disintegrating 10 mg translingual BID #14 tabs 11/16/24 tablet trazodone 50 mg tablet 50 mg PO BEDTIME MRX1 PRN Insomnia 11/16/24 #14 tabs acetaminophen 325 mg tablet 650 mg (2 x 325 mg) PO Q6H PRN 11/26/24 Pain/Headache 30 days #120 tabs albuterol sulfate 90 mcg/actuation 2 puff inhalation QID PRN 11/26/24 aerosol inhaler (Ventolin HFA) Shortness Of Breath 30 days #1 inhaler atorvastatin 10 mg tablet 10 mg PO BEDTIME 30 days #30 tabs 11/26/24 cetirizine 10 mg tablet 10 mg PO DAILY PRN Allergy 11/26/24 Symptoms 30 days #30 tabs cyclobenzaprine 10 mg tablet 10 mg PO BID PRN Muscle Spasm 30 11/26/24 days #60 tabs diphenhydramine HCl 25 mg capsule 50 mg (2 x 25 mg) PO BID PRN 11/26/24 Allergy symptoms 30 days #120 caps divalproex 500 mg tablet,extended 1,000 mg (2 x 500 mg) PO BEDTIME 11/26/24 release 24 hr 30 days #60 tabs fluticasone furoate 100 1 inh inhalation RDAILY 30 days #1 11/26/24 mcg-vilanterol 25 mcg/dose inhaler inhalation powder (Breo Ellipta) fluticasone propionate 50 1 spray intranasal DAILY 30 days 11/26/24 mcg/actuation nasal #1 inhaler spray,suspension haloperidol 5 mg tablet 7.5 mg (1.5 x 5 mg) PO BID 30 days 11/26/24 #21 tabs meclizine 12.5 mg tablet 12.5 mg PO Q8H PRN dizziness 30 11/26/24 days #30 tabs olanzapine 10 mg tablet 10 mg PO BID Agitation 30 days #60 11/26/24 tabs tiotropium bromide 2.5 2 puff inhalation RDAILY 30 days 11/26/24 mcg/actuation mist for inhalation #1 inhaler (Spiriva Respimat) trazodone 50 mg tablet 50 mg PO BEDTIME 30 days #30 tabs 11/26/24 Mental Status Exam Mental Status Exam Narrative: Pt is alert and oriented; behavior is cooperative, friendly and calm; dressed in casual attire; mood is described as good ; eye contact appropriate; Speech is normal rate, volume and not pressured; thought process is organized; Thought content is on tx; denies SI/HI/VH/AH. Data Data Completed and Pending Completed studies during hospitalization [Text1]: 11/22/24 11/22/24 11/28/24 16:14 21:19 17:18 WBC 7.3 RBC 4.00 L D Hgb 11.5 L Hct 35.1 L MCV 87.8 MCH 28.8 MCHC 32.8 RDW 13.1 Plt Count 342 MPV 8.8 L Immature Gran % (Auto) 2.1 H Neut % (Auto) 59.9 Lymph % (Auto) 30.0 [place] % (Auto) 5.7 Eos % (Auto) 1.9 Baso % (Auto) 0.4 Lymph # (Auto) 2.2 [place] # (Auto) 0.4 Eos # (Auto) 0.1 Baso # (Auto) 0.0 Abs Immat Gran (auto) 0.15 H Absolute Neuts (auto) 4.4 Absolute Nucleated RBC 0.000 Nucleated RBC % (auto) 0.0 Sodium 142 Potassium 4.1 Chloride 111 H Carbon Dioxide 26 Anion Gap 9 L BUN 12 Creatinine 0.70 Estim Creat Clear Calc 112.5 Estimated GFR > 60 Random Glucose 77 Calcium 8.5 Total Bilirubin 0.4 0.4 Direct Bilirubin 0.1 AST 9 12 ALT 21 20 Alkaline Phosphatase 90 91 Ammonia 56 H Total Protein 6.7 7.3 Albumin 3.7 4.1 Urine Color Dark Yellow Urine Appearance Clear Urine pH 6.5 Ur Specific [place] 1.010 Urine Protein Negative Urine Glucose (UA) Negative Urine Ketones Negative Urine Blood Large (3+) H Urine Nitrite Positive H Ur Leukocyte Esterase Small (1+) H Urine RBC 11-20 H Urine WBC 0-5 Ur Squamous Epith Cells 3-5 Urine Bacteria None Seen Hyaline Casts 0-2 Urine Test NEGATIVE Urine Opiates Screen Not Detected Ur Buprenorphine Scrn Not Detected Ur Oxycodone Screen Not Detected Urine Methadone Screen Not Detected Urine Fentanyl Screen Not Detected Ur Barbiturates Screen Not Detected Valproic Acid 12.5 L 50.7 Ur Phencyclidine Scrn Not Detected Ur Amphetamines Screen Not Detected U Benzodiazepines Scrn Not Detected Urine Cocaine Screen Not Detected U Marijuana (THC) Screen Not Detected Ethyl Alcohol < 10 11/22/24 Unknown Urine clean catch - Clean Catch Midstream Urine Culture - Final DS: Summary Hospital Course Hospital Course: per CARE team tahmina pt presented to [facility] via EMS c/o SI due to her having lost her PCP and being unable to have her medical meds prescribed after her recent stay on [facility] (DC date 11/16). she presented with poor ADLs, preoccupation and withdrawal, and lack of cooperation with ED staff. has been homeless unsheltered. on interview with MD, pt very goal-oriented to review her medications and have them prescribed properly. meds reviewed, reconciled, prescribed. she asked MD if he could prescribe them for her upon discharge. she noted she is homeless and it was a shock to learn she had lost her PCP after recent discharge from . she asks for help getting into a respite or a care home house. she is directed to speak with SW. she denies Sx presently, stating her mood is very well and denying SI/SIBI/HI/AVH. meds reviewed, reconciled, prescribed. will continue psych regimen at recent discharge from [facility]. pt asking for referrals to respite and/or [facility] house. calm, cooperative, pleasant. per staff, +RIS. denies psychotic Sx to MD. content with current regimen. continue current mgmt. in need of housing. sleeping a lot and well. no RIS observed. amenable to DC to respite on friday. Active on unit. pt reports feeling good; reports she is looking forward to going to respite. per nursing, slept 7 hours last night. denies any issues at this time. denies SI/HI/VH/AH. Continue current tx plan. Patient continues to report feeling good; active on unit. medication compliant. denies any issues at this time. denies SI/HI/VH/AH. Continue current tx plan. Patient reports looking forward to going to respite. denies SI/HI/VH/AH. She plans on following up with her outpatient providers. Status at Discharge Cognitive/behavioral status at discharge: Patient has insight and demonstrates good judgment in terms of wanting to pursue treatment. Patient has a safety plan that includes presenting to the closest ER or calling 911 if feeling unsafe. Functional status at discharge: independent ambulation Overall status at discharge: patient is back to baseline Time Spent with Patient Time attestation: Total time managing care of this patient today _20___ minutes. Time spent: Less than 30 minutes Discharge Plan Discharge Anticipated Discharge Date/Time: 11/29/24 09:56 Patient Disposition: Home, Self-Care Discharge Diagnosis: Schizoaffective d/o Referrals: [facility] [Provider Group] - 1 Week Referral Note: 11-29-24 [facility] was added to patients chart. Please call [phone] to schedule a follow up appt within 7-10 days from discharge. No release or PCP on file. Discharge Medications: New atorvastatin 10 mg Tablet 10 mg PO BEDTIME 30 Days Qty: 30 0RF divalproex 500 mg Tablet Extended Release 24 Hr 1,000 mg PO BEDTIME 30 Days Qty: 60 0RF Spiriva Respimat 2.5 mcg/actuation Mist 2 puff inhalation RDAILY 30 Days Qty: 1 0RF fluticasone furoate-vilanterol [Breo Ellipta] 100-25 mcg/dose Blister With Device 1 inh inhalation RDAILY 30 Days Qty: 1 0RF trazodone 50 mg Tablet 50 mg PO BEDTIME 30 Days Qty: 30 0RF olanzapine 10 mg Tablet 10 mg PO BID 30 Days Qty: 60 0RF meclizine 12.5 mg Tablet 12.5 mg PO Q8H PRN (Reason: dizziness) 30 Days Qty: 30 0RF Continued acetaminophen 325 mg Tablet 650 mg PO Q6H PRN (Reason: Pain/Headache) 30 Days Qty: 120 0RF haloperidol 5 mg Tablet 7.5 mg PO BID 30 Days Qty: 21 4RF cetirizine 10 mg Tablet 10 mg PO DAILY PRN (Reason: Allergy Symptoms) 30 Days Qty: 30 0RF albuterol sulfate [Ventolin HFA] 90 mcg/actuation Hfa Aerosol Inhaler 2 puff inhalation QID PRN (Reason: Shortness Of Breath) 30 Days Qty: 1 0RF fluticasone propionate 50 mcg/actuation [place],Suspension 1 spray INTRANASAL DAILY 30 Days Qty: 1 0RF Rx Instructions: administer into each nostril Changed cyclobenzaprine 10 mg Tablet 10 mg PO BID PRN (Reason: Muscle Spasm) 30 Days Qty: 60 0RF diphenhydramine HCl 25 mg Capsule 50 mg PO BID PRN (Reason: Allergy symptoms) 30 Days Qty: 120 0RF Discontinued divalproex [Depakote ER] 500 mg tablet extended release 24 hr 500 mg PO BEDTIME phenazopyridine [Pyridium] 100 mg Tablet 100 mg PO TID PRN (Reason: Pain) montelukast 10 mg Tablet 10 mg PO DAILY Incruse Ellipta 62.5 mcg/actuation Blister With Device 1 inh INHALATION DAILY trazodone 50 mg Tablet 50 mg PO BEDTIME MRX1 PRN (Reason: Insomnia) Qty: 14 4RF olanzapine 10 mg Tablet,Disintegrating 10 mg translingual BID Qty: 14 4RF hydroxyzine HCl 25 mg Tablet 25 mg PO Q6H PRN (Reason: mild anxiety) Qty: 15 0RF Discharge Orders: Discharge Order (Routine); Ordered 11/29/24 Ordered By: Ambika Jones Diet: Regular diet Activity on Discharge: As tolerated Stand Alone Forms: Patient Portal Discharge page, Community Support Print Language: Serbian Care Plan Goals: Maintain mood and safe behaviors Take medications as prescribed Practice coping skills Continue with outpatient providers and reach out to them as needed Health Concerns: Mood stability and behaviors Plan of Treatment: Follow up with your PCP, psychiatric provider and other outpatient providers regarding above concerns Take medications as prescribed Assessment: Patient has insight and demonstrates good judgment in terms of wanting to pursue treatment. Patient has a safety plan that includes presenting to the closest ER or calling 911 if feeling unsafe. Discharge Date/Time: 11/29/24 11:14
--- NOTE | 2024-11-29 11:28 | PC.NURSE ---
Patient engages easily. Discharge to respite. Reports mood is stable. Denies depression, endorses mild anxiety. Denies SI/HI plan or intent. Denies perceptual disturbances, no overt psychosis or expressed delusions. Discharge paperwork reviewed, reports understanding. Medications reviewed reports understanding. Instruction provided to obtain PCP through [facility]. Crisis numbers provided to patient, resource booklet provided. All belongings taken with patient. Home medications returned.
== END 2024-11-29 11:14 | disposition home or self-care (01) | DRG 885 ==
LOC: HO.ED 11-23 07:11 → HO.PADLT16 11-24 11:56
PROVIDERS: Admitting Provider Psychiatry & Neurology Psychiatry; Emergency Provider Emergency Medicine; Responsible Provider Registered Nurse; Visit Provider Psychiatry & Neurology Psychiatry
DX: F25.9 Schizoaffective disorder, unspecified (principal); F43.10 Post-traumatic stress disorder, unspecified; F17.210 Nicotine dependence, cigarettes, uncomplicated; Z71.6 Tobacco abuse counseling; Z79.51 Long term (current) use of inhaled steroids; Z79.899 Other long term (current) drug therapy
CPT/HCPCS: 36415; 80053; 80076; 80164; 80307; 81001; 81025; 82140; 85025; 87086; 93005; 99285; S9485

== ENCOUNTER → 2024-11-23 07:44 | Outpatient (BNV) | payer MEDICARE, SELFPAY | PROVIDERS: Admitting Provider Psychiatry & Neurology Psychiatry; Emergency Provider Emergency Medicine; Visit Provider Internal Medicine Cardiovascular Disease | DX: Z13.6 Encounter for screening for cardiovascular disorders (principal) | CPT/HCPCS: 93010 ==

== ENCOUNTER → 2024-11-24 11:50 | Outpatient (BNV) | payer MEDICARE, MEDICAID, SELFPAY | PROVIDERS: Admitting Provider Psychiatry & Neurology Psychiatry; Emergency Provider Emergency Medicine; Visit Provider Psychiatry & Neurology Psychiatry | DX: F25.9 Schizoaffective disorder, unspecified (principal); F43.11 Post-traumatic stress disorder, acute | CPT/HCPCS: 90792; 99231; 99238 ==

== ENCOUNTER 2024-12-06 20:56 | Emergency (ER) | payer MEDICARE, MEDICAID, SELFPAY ==
[2024-12-06 21:10] VITALS: BP 109/56; BP 110/70; PULSE 105; PULSE 106; RESP 16; TEMP 36.4; O2SAT 95; O2SAT 96; BMI 43.0
[2024-12-06 21:13] VITALS: BP 109/56; PULSE 105; RESP 16; TEMP 36.4; O2SAT 96
--- NOTE | 2024-12-06 21:14 | MHC.EDTECH ---
Did a filter changer with pt in family room. With security Uz[employer]. Pt stated she doesn't wants any of her marijuana or alcohol. She wants it thrown away. Uzair and yolanda are both witnesses to her stating that. [address] [place] [address] [employer]
[2024-12-06 21:28] LABS: MANUAL DIFF FLAG NO
[2024-12-06 21:29] LABS: Hematocrit 31.2 % (37.0-47.0); Hemoglobin 10.3 g/dl (12.0-16.0); Imm Gran Abs Auto 0.05 X10*3/uL (0.00-0.03); Imm Gran Pct Auto 0.6 % (0.0-0.4); Lymphocytes Absolute Auto 2.4 X10*3/uL (1.2-4.9); Mean Corpuscular HGB Conc 33.0 g/dl (31.0-35.0); Mean Corpuscular Hemoglobin 29.3 pg (27.0-33.0); Mean Corpuscular Volume 88.6 fL (80.0-98.0); NRBC Abs Auto 0.000 X10*3/uL (0.0-0.012); NRBC Pct Auto 0.0 /100WBC (0.0-0.2); Platelet Count 279 X10*3/uL (160-400); Red Blood Count 3.52 X10*6/uL (4.20-5.50); White Blood Count 8.0 X10*3/uL (4.8-10.8)
[2024-12-06 21:40] LABS: Appearance Urine Clear; Glucose Urine UA Negative (Negative); PH 6.0 (5.0-9.0); Specific Gravity - Urine >= 1.030 (1.005-1.025); UMIC TRIGGER UA YES
[2024-12-06 21:42] LABS: Alanine Aminotransferase 12 U/L (0-31); Albumin Level 3.8 g/dL (3.5-5.0); Alkaline Phosphatase 82 U/L (39-117); Anion Gap 10 (12-20); Aspartate Amino Transferase 15 U/L (5-31); Blood Urea Nitrogen 25 mg/dL (9-16); Calcium 8.7 mg/dL (8.4-10.2); Carbon Dioxide 26 mmol/L (22-29); Chloride 109 mmol/L (96-108); Creatinine Clr Calc Pharmacy 104.9; Estimated Glomerular Filt Rate > 60; Potassium 4.1 mmol/L (3.3-5.1); Sodium 141 mmol/L (135-145); Total Protein 6.5 g/dL (6.5-8.0)
[2024-12-06 21:48] VITALS: BP 98/66; PULSE 96; RESP 14; TEMP 36.6; O2SAT 96
--- OUTSIDE RECORDS SUMMARY | 2024-12-06 21:48 | XMS_ITS | Clinical Summary ---
Author Organization [facility] Address [address] [place] [address] Phone Care Team Providers Care [employer] Make[employer] Name Role Phone Physician, Pcp Unknown Primary [...] - 2023-2 5 season) 2024 Depression Screening 05/05/2024 HIV Screening 08/02/2024 Hepatitis C Screening 08/02/2024 [...] to complete this topic Insurance [facility] Member Subscriber Plan / Payer (Ef fective 2024-Present) Name:Samaria Corley Member ID:[id number] Relation to Subscriber:Self Name:Samaria Corley Subscriber ID:[id number] Payer ID:[id number] Group ID:Not on file Type:Not on file Address: [place] [address] [address] Care Teams [employer] Make[employer] Relationship Specialty Start Date End Date Physician, Pcp Unknown PCP - General 08/02/24
[2024-12-06 21:49] LABS: Cannabinoid Screen Urine Not Detected (Not Detect)
--- NOTE | 2024-12-06 21:50 | PC.NURSE ---
pt moved to the pod by security, now resting in bed, offering no complaints to this RN, calm and cooperative, respirations even and unlabored. currently pending CARE team tahmina
[2024-12-06 22:07] LABS: UPreg QC Valid YES
--- NOTE | 2024-12-06 23:13 | ED.GENADULT ---
HPI - General Adult General Chief complaint: Psychiatric Symptoms Stated complaint: panic attack Time Seen by Provider: 12/06/24 22:13 Source: patient Limitations: no limitations History of Present Illness ED Provider: Bailey Ingram PA-C HPI narrative: 39-year-old female with a history of schizoaffective disorder, bipolar disorder, depression, PTSD, morbid obesity, tobacco abuse, asthma and hyperlipidemia who presents with acute anxiety. Patient states she had a panic attack earlier today secondary to being homeless, and now feels suicidal. Patient states she has had prior attempts, she has no specific plan for self-harm at this time. Patient denies the use of illicit substances or alcohol. Related Data Home Medications ?Medication ?Instructions ?Recorded ?Confirmed divalproex 500 mg tablet,extended 500 mg PO DAILY 12/07/24 12/09/24 release 24 hr Banophen 25 mg PO 12/09/24 Macrobid 100 mg 12/09/24 meclizine 12.5 mg PO 12/09/24 melatonin 10 mg PO BEDTIME 12/09/24 12/09/24 trazodone 50 mg tablet 50 mg PO BEDTIME PRN insomnia 12/09/24 12/09/24 zinc 50 mg PO 12/09/24 Previous Rx's ?Medication ?Instructions ?Recorded albuterol sulfate 90 mcg/actuation 2 puff inhalation QID PRN 11/26/24 aerosol inhaler (Ventolin HFA) Shortness Of Breath 30 days #1 inhaler atorvastatin 10 mg tablet 10 mg PO BEDTIME 30 days #30 tabs 11/26/24 cetirizine 10 mg tablet 10 mg PO DAILY PRN Allergy 11/26/24 Symptoms 30 days #30 tabs fluticasone furoate 100 1 inh inhalation RDAILY 30 days #1 11/26/24 mcg-vilanterol 25 mcg/dose inhaler inhalation powder (Breo Ellipta) fluticasone propionate 50 1 spray intranasal DAILY 30 days 11/26/24 mcg/actuation nasal #1 inhaler spray,suspension haloperidol 5 mg tablet 7.5 mg (1.5 x 5 mg) PO BID 30 days 11/26/24 #21 tabs olanzapine 10 mg tablet 10 mg PO BID Agitation 30 days #60 11/26/24 tabs Allergies Allergy/AdvReac Type Severity Reaction Status Date / Time animal dander (PET DANDER) Allergy Unknown Itching Verified 12/09/24 03:30 bee pollen (BEE STINGS) Allergy Unknown Swelling Verified 12/09/24 03:30 house dust Allergy Unknown Unknown Verified 12/09/24 03:30 shellfish derived (SHELLFISH Allergy Unknown Swelling Verified 12/09/24 03:30 DERIVED) Seasonal Allergies Allergy Itching Verified 12/09/24 03:30 Review of Systems Review of Systems: Yes all other systems are reviewed and are negative Constitutional: Constitutional: Denies fatigue and Denies fever(s) Cardiovascular: Cardiovascular: Denies chest pain Gastrointestinal: Gastrointestinal: Denies abdominal pain Psychiatric: Psychiatric: Reports suicidal ideation Endocrine: Endocrine: Denies fatigue PMFSH Past Medical History Attestation statement: The following information was validated with the patient. Medical History Suicidal ideation Suicidal ideation Bipolar disorder Severe asthma with allergic rhinitis Allergic rhinitis Vertigo Surgical History No pertinent past surgical history Family History Family History Father Lung cancer CVD (cardiovascular disease) Mother Past heart attack Diabetes Emphysema lung CVD (cardiovascular disease) Family/Other FH: mental illness Maternal Grandmother No problems noted. Paternal Grandmother No problems noted. Social History Social History Household Members: None Housing: Homeless Do you presently have visiting nurse or other home services: No Unable to assess alcohol history related to: Refusing to respond Alcohol intake: current Alcohol intake frequency: a few times a week Alcohol type: hard liquor Comment: close observations at night Patient Tobacco Use Status: Current everyday Tobacco user Tobacco use type: Cigarette Cigarette Packs Per Day: 1 Cigarettes Per Day: 20.0 Years Smoked: 11 Smoked in Last 30 Days: Yes e-Cigarette/Vaping Use: Never Used Patient Interested in Nicotine Replacement: Yes Patient Given Instructions on How to Stop Smoking: Yes Date Education Initiated: 12/09/24 Second Hand Smoke Exposure: No Use of substances other than those prescribed or required for medical reasons: Yes Substance Use Type: Marijuana Substance Use Frequency: Daily Currently Displaying Signs/Symptoms of Drug Intoxication Withdrawal: No Have you been hit, kicked, punched, or otherwise hurt by someone within the past year? If so, by whom?: No Do you feel safe in your current relationship?: No Current Relationship Is there a partner from a previous relationship who is making you feel unsafe now?: No Are you made to feel afraid or neglected: No Spiritual Healthcare Practices: none reported Anabaptism Healthcare Practices: none reported Cultural Healthcare Practices: none reported Advance Directives: No Advance Directives Information Provided: Yes Do you have thoughts of harming others: None Do you have a plan to hurt others: No Plan Recently lost weight without trying: No How much weight loss: Not applicable Eating poorly because of decreased appetite: No Nutrition screen score: 0 Nutrition Risks: No Nutritional Risk Patient : No : No Poor oral hygiene: No service: No Current occupational status: unemployed Sexual orientation: Unable to collect Cognitive needs: No Hearing needs: No Vision needs: No Physical Exam ED Vital Signs: Vital Signs - 24 hr 12/06/24 21:10 12/06/24 21:13 12/06/24 21:48 Temperature 97.6 F 97.6 F 97.9 F Pulse Rate 105 H 105 H 96 Respiratory Rate 16 16 14 Blood Pressure 109/56 L 109/56 L 98/66 Pulse Oximetry 96 96 96 Oxygen Delivery Method Room Air Room Air Room Air 12/07/24 05:54 Temperature 98.0 F Pulse Rate 87 Respiratory Rate 17 Blood Pressure 153/85 H Pulse Oximetry 98 Oxygen Delivery Method Room Air BMI result Body Mass Index 43.0 Const Other: Alert Orientation/consciousness: patient oriented x3 Resp Effort & Inspection: normal respiratory effort Cardio Other: Normal peripheral perfusion Skin Other: Warm dry no rash Neuro General: patient oriented x3, gait normal, no focal motor deficits and CN's II-XI intact bilaterally Psych Other: Cooperative in ER, not exhibiting symptoms of anxiety, sleeping in bed, easily woken with verbal stimuli Course Reevaluation(s) Reevaluation #1: Spoke with Arti from the care team, she reports that She?s not staying at respite anymore bc her insurance lapsed. I?ll have financial meet with her in morning. I told her she?s not appropriate for inpatient but she can stay the night and care team will follow up in the morning. So she?ll be a follow up Time: 23:39 Date: 12/06/24 Provider: VICKIE Bennett Patient in physician observation for psychiatric evaluation.? No acute events reported overnight. No current complaints. VS stable.? Patient is in bed search status/pending CARE team evaluation. Will continue to monitor. Time: 23:38 Reevaluation #2: Time: 08:55 Date: 12/07/24 Provider: Tanvi Sen DO Physician observation ended at 855M. Patient has been cleared for discharge by the CARE team. Will follow up as an outpatient. TO GO TO [facility] Medications Administered Discontinued Medications Generic Name Dose Route Start Last Admin Trade Name Freq PRN Reason Stop Dose Admin Albuterol Sulfate 2 puff 12/07/24 02:15 12/07/24 06:06 Albuterol Sulfate 90 Mcg 8 Gm Inhaler INHALE 2 puff QID PRN Administration Shortness of Breath Atorvastatin Calcium 10 mg 12/07/24 02:15 12/07/24 02:47 Atorvastatin Calcium 10 Mg Tablet PO Not Given BEDTIME NATALIA Divalproex Sodium 500 mg 12/07/24 09:00 12/07/24 08:55 Divalproex Sodium Er 500 Mg Tab.Er.24h PO 500 mg DAILY NATALIA Administration Fluticasone Propionate 1 spray 12/07/24 09:00 12/07/24 08:55 Fluticasone Propionate Nasal 16 Gm [place] NOSTRIL-B 1 spray DAILY NATALIA Administration Fluticasone/Vilanterol 1 puff 12/07/24 08:00 12/07/24 08:55 Fluticasone/Vilanterol 100/25 Blst.W.Dev INHALE 1 puff RDAILY NATALIA Administration Haloperidol 7.5 mg 12/07/24 02:15 12/07/24 02:47 Haloperidol 0.5 Mg Tablet PO Not Given BID NATALIA Haloperidol 7.5 mg 12/07/24 09:15 12/07/24 09:12 Haloperidol 5 Mg Tablet PO 7.5 mg BID NATALIA Administration Olanzapine 10 mg 12/07/24 02:15 12/07/24 08:55 Olanzapine 10 Mg Tablet PO 10 mg BID NATALIA Administration Medical Decision Making Medical Decision Making MDM Narrative: 39-year-old female with a history of schizoaffective disorder, bipolar disorder, depression, PTSD, morbid obesity, tobacco abuse, asthma and hyperlipidemia who presents with acute anxiety. Patient states she had a panic attack earlier today secondary to being homeless, and now feels suicidal. Patient states she has had prior attempts, she has no specific plan for self-harm at this time. Patient denies the use of illicit substances or alcohol. Problem: Housing and security, psychiatric illness History: Per patient I have considered the following differential diagnoses: SI, HI, decompensated psychiatric illness, drug/alcohol intoxication Plan: Screening labs including U tox and ethanol were obtained, the patient will be referred to the care team, she seems to be at her baseline and my opinion, she is frequently seen in the emergency department I have independently reviewed the following tests: Labs: No leukocytosis, not anemic, no electrolyte abnormality, urine not infected, U tox negative, ethanol 10 Lab Data 12/06/24 21:24 12/06/24 21:24 Labs: Lab Results 12/06/24 12/06/24 Range/Units 21:24 21:32 WBC 8.0 (4.8-10.8) X10*3/uL RBC 3.52 L (4.20-5.50) X10*6/uL Hgb 10.3 L (12.0-16.0) g/dl Hct 31.2 L (37.0-47.0) % MCV 88.6 (80.0-98.0) fL MCH 29.3 (27.0-33.0) pg MCHC 33.0 (31.0-35.0) g/dl RDW 12.7 (11.0-16.0) % Plt Count 279 (160-400) X10*3/uL MPV 8.8 L (9.4-12.3) fL Immature Gran % (Auto) 0.6 H (0.0-0.4) % Neut % (Auto) 58.8 (45-73) % Lymph % (Auto) 30.5 (20-40) % [place] % (Auto) 7.7 (2-11) % Eos % (Auto) 1.6 (0-4) % Baso % (Auto) 0.8 (0-2) % Lymph # (Auto) 2.4 (1.2-4.9) X10*3/uL [place] # (Auto) 0.6 (0.1-1.2) X10*3/uL Eos # (Auto) 0.1 (0.0-0.4) X10*3/uL Baso # (Auto) 0.1 (0.0-0.2) X10*3/uL Abs Immat Gran (auto) 0.05 H (0.00-0.03) X10*3/uL Absolute Neuts (auto) 4.7 (2.0-8.3) x10*3/uL Absolute Nucleated RBC 0.000 (0.0-0.012) X10*3/uL Nucleated RBC % (auto) 0.0 (0.0-0.2) /100WBC Sodium 141 (135-145) mmol/L Potassium 4.1 (3.3-5.1) mmol/L Chloride 109 H (96-108) mmol/L Carbon Dioxide 26 (22-29) mmol/L Anion Gap 10 L (12-20) BUN 25 H (9-16) mg/dL Creatinine 0.81 (0.5-1.4) mg/dL Estim Creat Clear Calc 104.9 Estimated GFR > 60 Random Glucose 96 (60-115) mg/dL Calcium 8.7 (8.4-10.2) mg/dL Total Bilirubin 0.2 (0.0-1.0) mg/dL AST 15 (5-31) U/L ALT 12 (0-31) U/L Alkaline Phosphatase 82 (39-117) U/L Total Protein 6.5 (6.5-8.0) g/dL Albumin 3.8 (3.5-5.0) g/dL Urine Color Yellow Urine Appearance Clear Urine pH 6.0 (5.0-9.0) Ur Specific [place] >= 1.030 H (1.005-1.025) Urine Protein Negative (Neg-Trace) mg/dL Urine Glucose (UA) Negative (Negative) mg/dL Urine Ketones Trace (Negative) mg/dL Urine Blood Negative (Negative) Urine Nitrite Negative (Negative) Ur Leukocyte Esterase Small (1+) H (Negative) Urine RBC 0-2 (0-2) /HPF Urine WBC 11-20 H (0-5) /HPF Ur Squamous Epith Cells 6-10 (0-2) /HPF Urine Bacteria 1+ (None Seen) Hyaline Casts 0-2 (0-2) /LPF Urine Test NEGATIVE (NEGATIVE) Urine Opiates Screen Not Detected (Not Detect) Ur Buprenorphine Scrn Not Detected (Not Detect) ng/mL Ur Oxycodone Screen Not Detected (Not Detect) ng/mL Urine Methadone Screen Not Detected (Not Detect) ng/mL Urine Fentanyl Screen Not Detected (Not Detect) Ur Barbiturates Screen Not Detected (Not Detect) Ur Phencyclidine Scrn Not Detected (Not Detect) Ur Amphetamines Screen Not Detected (Not Detect) U Benzodiazepines Scrn Not Detected (Not Detect) Urine Cocaine Screen Not Detected (Not Detect) U Marijuana (THC) Screen Not Detected (Not Detect) Ethyl Alcohol 10 mg/dL Discharge Plan Discharge Clinical Impression: Suicidal ideation, Housing insecurity Patient Disposition: Home, Self-Care Instructions: Help Prevent Suicide (ED) Additional Instructions: You were seen in our Emergency Department today for treatment of a behavioral health issue. It is important after your visit that you follow up with either your behavioral health provider or a primary care doctor within 7 days.? If you have trouble finding a therapist you can reach out to [place] [phone] [facility] [place] [facility] can be reached 7 days a week 24 hours a day.? Call [phone] to speak with someone.? Return for any worsening symptoms or concerns such as thoughts of self harm or harm to others. Please call 911 if you feel your mental health is worsening.? Prescriptions: No Action atorvastatin 10 mg Tablet 10 mg PO BEDTIME 30 Days Qty: 30 0RF fluticasone furoate-vilanterol [Breo Ellipta] 100-25 mcg/dose Blister With Device 1 inh inhalation RDAILY 30 Days Qty: 1 0RF olanzapine 10 mg Tablet 10 mg PO BID 30 Days Qty: 60 0RF haloperidol 5 mg Tablet 7.5 mg PO BID 30 Days Qty: 21 4RF cetirizine 10 mg Tablet 10 mg PO DAILY PRN (Reason: Allergy Symptoms) 30 Days Qty: 30 0RF albuterol sulfate [Ventolin HFA] 90 mcg/actuation Hfa Aerosol Inhaler 2 puff inhalation QID PRN (Reason: Shortness Of Breath) 30 Days Qty: 1 0RF fluticasone propionate 50 mcg/actuation [place],Suspension 1 spray INTRANASAL DAILY 30 Days Qty: 1 0RF Rx Instructions: administer into each nostril divalproex 500 mg tablet extended release 24 hr 500 mg PO DAILY trazodone 50 mg tablet 50 mg PO BEDTIME PRN (Reason: insomnia) Banophen tablet 25 mg PO zinc tablet 50 mg PO Macrobid 100 mg meclizine 12.5 mg PO melatonin 10 mg PO BEDTIME Interventions: [place]-Suicide Risk Severity Scale Last Done: 12/06/24 21:12 ED Discharge Assessment Last Done: 12/07/24 09:17 Discharge Date/Time: 12/07/24 09:18 Print Language: Romanian
--- NOTE | 2024-12-07 02:12 | PC.NURSE ---
RE; med rec this RN completed pts med rec with access to previous medical records as well as patient verbal confirmation
[2024-12-07 05:54] VITALS: BP 153/85; PULSE 87; RESP 17; TEMP 36.7; O2SAT 98
[2024-12-07] MEDS: Albuterol Sulfate 90 MCG 8 GM INHALER 2 PUFF INHALE (06:06)
--- NOTE | 2024-12-07 08:37 | PC.NURSE ---
Patient already asking to go home.
[2024-12-07] MEDS: Fluticasone/Vilanterol 100/25 BLST.W.DEV 1 PUFF INHALE (08:55)
[2024-12-07 09:17] VITALS: BP 159/86; PULSE 100; RESP 18; TEMP 36.6; O2SAT 96
== END 2024-12-07 09:18 | disposition home or self-care (01) ==
PROVIDERS: Emergency Provider Emergency Medicine; PCP Internal Medicine
DX: R45.851 Suicidal ideations (principal); Z59.00 Homelessness unspecified; F41.9 Anxiety disorder, unspecified; F25.9 Schizoaffective disorder, unspecified; F31.9 Bipolar disorder, unspecified; F43.10 Post-traumatic stress disorder, unspecified; F17.210 Nicotine dependence, cigarettes, uncomplicated; J45.909 Unspecified asthma, uncomplicated; E78.5 Hyperlipidemia, unspecified; Z59.89 Other problems related to housing and economic circumstances; Z79.899 Other long term (current) drug therapy
CPT/HCPCS: 36415; 80053; 80307; 81001; 81025; 85025; 99285; S9485

== ENCOUNTER 2024-12-09 03:18 | Inpatient (IN) | payer MEDICARE, MEDICAID, SELFPAY ==
--- NOTE | ~2024-12-09 | CT_ITS ---
EXAMINATION: CT ABDOMEN AND PELVIS WITH CONTRAST CLINICAL INFORMATION: Metastatic disease workup COMPARISON: None available. TECHNIQUE: Multidetector volumetric images were obtained from the superior aspect of the liver through the pubic symphysis following administration 85 mL of Omnipaque 350 intravenous contrast. Sagittal and coronal reformatted images were obtained on the technologist's workstation. Oral contrast: No This CT examination was performed using dose optimization techniques as appropriate, variously including the following: *Automated exposure control *Adjustment of mA and/or kV according to patient size (this includes techniques or standardized protocols for targeted exams where dose is matched to indication/reason for exam; i.e. extremities or head) *Use of iterative reconstruction technique DLP: 1020 mGY*cm FINDINGS: LIVER, GALLBLADDER, AND BILIARY TREE: The liver is normal in size, shape, and attenuation. No focal hepatic lesion or biliary ductal dilatation is present. The gallbladder is unremarkable with no evidence of radiopaque gallstones, gallbladder wall thickening, or obvious pericholecystic inflammatory changes. PANCREAS: Unremarkable. SPLEEN: Unremarkable aside from a small splenule. ADRENAL GLANDS: Unremarkable. KIDNEYS AND URETERS: 8 mm fat density lesion in the mid left kidney is consistent with angiomyolipoma. Kidneys are otherwise unremarkable. There is no hydronephrosis or stones. BLADDER: Decompressed GASTROINTESTINAL TRACT: Moderate stool is present throughout the colon. ABDOMINAL WALL: No significant hernia is appreciated. LYMPH NODES: There is a 12 mm short axis diameter right external iliac lymph node. There is a 10 mm short axis lymph node in the left pelvis deep to the left external iliac vein. There are additional shotty borderline bilateral inguinal lymph nodes VASCULAR: Unremarkable. PELVIC VISCERA: T-shaped IUD is positioned in the upper uterine canal. OSSEOUS STRUCTURES: There is sclerosis and vacuum phenomenon involving the right SI joint. CT/CT abdomen pelvis w IV con IMPRESSION: Right external iliac lymphadenopathy and left pelvic borderline adenopathy. 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 Moderate stool is present throughout the colon. Electronically signed by: Sg Knox MD 12/24/2024 01:00 PM EDT
--- NOTE | ~2024-12-09 | NM_ITS ---
EXAMINATION: NM BONE SCAN WHOLE BODY HISTORY: abnormal imaging. ?Mediastinal mass, ?T7 lytic lesion. TECHNIQUE: A total body bone scan was performed following the intravenous administration of 36.0 mCi technetium 99m-MDP. COMPARISON: Correlation is made with a chest, abdomen, and pelvic CT dated 12/24/2024 and plain films of the skull dated 12/20/2024. FINDINGS: There is moderate symmetric increased uptake at the knees, shoulders, and ankles which may be degenerative in nature. There is increased uptake at the L5 vertebral level which is likely degenerative in nature related to osteoarthritis of the posterior elements. No focal abnormality is seen involving the thoracic spine. No focal skull abnormality is identified. The remainder of the visualized osseous structures demonstrate a normal distribution of activity. NM/NM bone scan whole body IMPRESSION: No focal abnormality is seen in the thoracic spine or skull to correspond to the lytic foci noted on prior imaging. Bone scan is insensitive to detection of multiple myeloma, and if this is a clinical concern, laboratory evaluation and PET/CT scan are recommended. Electronically signed by: Kendall Callejas MD 12/27/2024 03:04 PM EDT
--- NOTE | ~2024-12-09 | XR_ITS ---
CLINICAL HISTORY: pre mri 2 view skull Comparison: None provided Findings: Devitalized bone of the maxilla and imaged mandible likely subacute secondary to absence of the teeth. Portions of the orbits are obscured without definite metallic foreign body in either partially imaged orbit. No head CT or dedicated orbit imaging are available for review at this time Temporomandibular joints are obscured. Hypo pneumatization of the paranasal sinuses suggested and not further characterize by radiographs. Remodeling versus effusions of the imaged mastoid. Multiple lucencies of the calvarium are nonspecific measuring 7 and 8 mm selectively. Differential considerations include arachnoid granulations. Lucencies of the multiple myeloma metastatic disease not excluded by radiographs at this time. IMPRESSION: Devitalized bone of the maxilla and mandibles noted above. Calvarial lucencies are nonspecific. Please consider head CT especially if the patient has risk factors for osseous metastatic disease with lytic lucencies and/or lucencies of the multiple myeloma. This document has been electronically signed by: Olaf Delgado MD on 12/20/2024 20:59:42
--- NOTE | ~2024-12-09 | CT_ITS ---
EXAMINATION: CT CHEST WITH CONTRAST CLINICAL INFORMATION: Multifocal lytic lesions in the skull on CT scan, cancer workup COMPARISON: PET/CT on December 22, 2024 TECHNIQUE: Multidetector volumetric CT imaging of the chest was obtained after the administration of 85 mL of Omnipaque 350 intravenous contrast without immediate adverse reactions. Axial MIP volume rendering provided. Sagittal and coronal reformatted images were obtained. This CT examination was performed using dose optimization techniques as appropriate, variously including the following: *Automated exposure control *Adjustment of mA and/or kV according to patient size (this includes techniques or standardized protocols for targeted exams where dose is matched to indication/reason for exam; i.e. extremities or head) *Use of iterative reconstruction technique EXAMINATION: CT ANGIOGRAM CHEST CLINICAL INFORMATION: COMPARISON: None available. TECHNIQUE: Multiple axial images were obtained through the chest after the administration of 85 mL of Omnipaque 350 intravenous contrast. Extensive vascular post-processing including two-dimensional and three-dimensional reformatted images were created and reviewed on an independent workstation. This CT examination was performed using dose optimization techniques as appropriate, variously including the following: *Automated exposure control *Adjustment of mA and/or kV according to patient size (this includes techniques or standardized protocols for targeted exams where dose is matched to indication/reason for exam; i.e. extremities or head) *Use of iterative reconstruction technique DLP: 1028 mGY*cm FINDINGS: LUNGS: Linear atelectasis or scarring is present in the anterior base of the left lower lobe. MEDIASTINUM: Soft tissue density is present in the anterior superior mediastinum measuring 5.4 x 1.5 x 3.1 cm (CC by AP by transverse). PLEURA: There is no pleural effusion. No pleural mass or thickening. AXILLA: There are shotty lymph nodes without adenopathy. OSSEOUS STRUCTURES: There is an 11 mm heterogeneous lytic lesion within the left T8 vertebral body. CT/CT chest w IV con IMPRESSION: Anterior superior mediastinal mass could represent thymoma, thymic neoplasm, lymphoma, or lymphadenopathy. Heterogeneous lytic lesion within the T8 vertebral body is concerning for metastatic disease or myeloma. Fleischner guidelines were followed. Electronically signed by: Sg Knox MD 12/24/2024 12:46 PM EDT
--- NOTE | ~2024-12-09 | XR_ITS ---
CLINICAL HISTORY: pre mri 2 view chest x-ray Comparison: Chest x-ray from 10/02/2024 Findings: Majority of the spine is obscured. Low lung volumes with mild bibasilar atelectasis/pneumonitis. Mild cardiomegaly. No pneumothorax or pleural effusion accounting for artifacts. Degenerative changes include imaged shoulders and imaged AC joints. IMPRESSION: mild bibasilar atelectasis/pneumonitis This document has been electronically signed by: Olaf Delgado MD on 12/20/2024 21:06:52
--- NOTE | ~2024-12-09 | XR_ITS ---
CLINICAL HISTORY: pre mri 1 view abdomen Comparison: None provided Findings: Intrauterine device is partly obscured. Prominent bowel gas is nonspecific. No definite small bowel dilatation. Large air-fluid level suggested in the region of the imaged stomach. Severe stool burden present, including the cecum. Degenerative changes include osteoarthritis of the imaged hips. Portions of the pelvis obscured. IMPRESSION: Intrauterine device noted in the pelvis. Type or potential MR compatibility is not noted by imaging isolation at this time. This document has been electronically signed by: Olaf Delgado MD on 12/20/2024 21:01:08
--- NOTE | ~2024-12-09 | CT_ITS ---
EXAMINATION: CT HEAD WITHOUT CONTRAST CLINICAL INFORMATION: abnormal skull xray, r/o metastatic process COMPARISON: January 07, 2024. TECHNIQUE: Contiguous axial imaging was performed from the skull base to vertex without intravenous administration of contrast. This CT examination was performed using dose optimization techniques as appropriate, variously including the following: *Automated exposure control *Adjustment of mA and/or kV according to patient size (this includes techniques or standardized protocols for targeted exams where dose is matched to indication/reason for exam; i.e. extremities or head) *Use of iterative reconstruction technique DLP: 683 mGy-cm FINDINGS: Bone marrow inhomogeneity throughout the bony calvarium with less than 1 cm, irregular marginated, lytic lesions. There is a 1 cm exostosis. In the left parietal. No acute intracranial hemorrhage, mass effect, midline shift, hydrocephalus or herniation. Crawford-white matter differentiation is normal. Posterior cranial fossa contents demonstrated no gross hemorrhage or mass effect. There is normal position of the cerebellar tonsils. Sellar/suprasellar region demonstrated no gross masses. Poor pneumatization of the frontal sinuses. There is mucosal thickening in the sphenoid sinus. Tympanic cavities and mastoid antrums are aerated. Probable small effusions in the mastoid air cells deep. CT/CT head/brain wo IV con IMPRESSION: Abnormal diploe bony calvarium. Consider calcium metabolic disorders versus lymphoproliferative disorder versus metastatic disease. Unknown etiology. No acute intracranial abnormality by CT. Electronically signed by: Amos Hendrix MD 12/23/2024 08:13 AM EDT
--- NOTE | ~2024-12-09 | MR_ITS ---
EXAMINATION: MR BRAIN WITHOUT CONTRAST CLINICAL INFORMATION: Psychosis. Question seizure. COMPARISON: Correlated to CT dated December 22, 2024 and January 07, 2024. TECHNIQUE: MRI of the brain was obtained using routine sequences without contrast. FINDINGS: Patient's motion artifact. No restricted diffusion. No acute intracranial hemorrhage, mass effect, midline shift, hydrocephalus or herniation. Crawford-white matter differentiation is normal. Posterior cranial fossa contents demonstrated no signal abnormality or mass effect. There is normal position of the cerebellar tonsils. Sellar/suprasellar region is normal. Midline structures are intact and normal. Flow-void signal within the main cerebral vessels is normal. Hyperintense T2 FLAIR signal in the mastoid air cells. No signal abnormality or volume loss in the hippocampi MR/MR head/brain wo con IMPRESSION: No acute or structural brain abnormality. Electronically signed by: Amos Hendrix MD 12/24/2024 12:52 PM EDT
[2024-12-09 03:29] VITALS: BP 138/70; BP 142/88; PULSE 85; PULSE 87; RESP 17; TEMP 36.4; O2SAT 100; O2SAT 98; BMI 37.7
--- OUTSIDE RECORDS SUMMARY | 2024-12-09 03:48 | XMS_ITS | Clinical Summary ---
Author Organization [facility] Address [address] [place] [address] Phone Care Team Providers Care Chip Tester Name Role Phone Physician, Pcp Unknown Primary [...] this topic Insurance [facility] Member Subscriber Plan / Payer (Ef fective 2024-Present) Name:Samaria Corley Member ID:[id number] Relation to Subscriber:Self Name:Samaria Corley Subscriber ID:[id number] Payer ID:[id number] Group ID:Not on file Type:Not on file Address: [address] [address] Care Teams Chip Tester Relationship Specialty Start Date End Date Physician, Pcp Unknown PCP - General 08/02/24
--- OUTSIDE RECORDS SUMMARY | 2024-12-09 03:48 | XMS_ITS | Clinical Summary ---
Author Organization [facility] Address [address] [place] [address] Care Team Providers Care Director Of Curriculum And Instruction Name Role Phone Roxie Guevara MD Primary Care Provider [phone] Allergies Active Allergy Reactions Criticality Noted Date [...] Cessation:Counseling Given: Not Answered [facility] Utilities Answer Date Recorded In the past 12 months has [employer], or water [employer] threatened to shut off services in your [...] place to sleep or slept in a long term (including now)? No 01/13/2024 Comments Unknown Sex [...] topic Insurance MEDICARE PART A & [facility] MEDICARE OUT OF NETWORK [facility] Advance Directives * Full Code (Latest Code Status on File) Date Activated Date Inactivated Comments 01/11/2024 12:44 PM Care Teams Director Of Curriculum And Instruction Relationship Specialty Start Date End Date Roxie Guevara MD [address] [place] [address] PCP - General Family Medicine 01/13/24
--- NOTE | 2024-12-09 04:09 | PC.NURSE ---
yanique from [employer] c/o generalized back spasms x 2 days. pt reports taking flexiril w/o relief. denies recent injury/trauma/incontinence. upon leaving the room, patient then states she is feeling suicidal/requesting to speak w/ crisis as she states, i want to kill myself. i am not feeling myself and want to harm myself because i am homeless. pt denies HI. pt reports consuming unknown amount of alcohol and marijuana [employer]. pt reports that her plan would be to drink herself to . security notified/aware. spinning frame changer initiated - belongings list created. belongings placed on [facility] floor via security. pt moved to 19H. otherwise alert and oriented. vss and up to date. on RA w/o difficulty. no sob/wob noted. respirations even/unlabored. 1:1 sitter present. plan of care ongoing.
[2024-12-09 04:43] LABS: Hematocrit 33.9 % (37.0-47.0); Hemoglobin 11.2 g/dl (12.0-16.0); Imm Gran Abs Auto 0.05 X10*3/uL (0.00-0.03); Imm Gran Pct Auto 0.7 % (0.0-0.4); Lymphocytes Absolute Auto 2.5 X10*3/uL (1.2-4.9); MANUAL DIFF FLAG NO; Mean Corpuscular HGB Conc 33.0 g/dl (31.0-35.0); Mean Corpuscular Hemoglobin 29.0 pg (27.0-33.0); Mean Corpuscular Volume 87.8 fL (80.0-98.0); NRBC Abs Auto 0.000 X10*3/uL (0.0-0.012); NRBC Pct Auto 0.0 /100WBC (0.0-0.2); Platelet Count 279 X10*3/uL (160-400); Red Blood Count 3.86 X10*6/uL (4.20-5.50); White Blood Count 6.8 X10*3/uL (4.8-10.8)
[2024-12-09 05:04] LABS: Acetaminophen LAB < 3 mcg/mL (<30); Alanine Aminotransferase 10 U/L (0-31); Albumin Level 4.0 g/dL (3.5-5.0); Alkaline Phosphatase 78 U/L (39-117); Anion Gap 12 (12-20); Aspartate Amino Transferase 15 U/L (5-31); Blood Urea Nitrogen 18 mg/dL (9-16); Calcium 8.8 mg/dL (8.4-10.2); Carbon Dioxide 28 mmol/L (22-29); Chloride 107 mmol/L (96-108); Creatinine Clr Calc Pharmacy 119.3; Estimated Glomerular Filt Rate > 60; Magnesium 2.1 mg/dL (1.6-2.6); Potassium 3.9 mmol/L (3.3-5.1); Salicylate < 5.0 mg/dL (15-30); Sodium 143 mmol/L (135-145); Total Protein 6.8 g/dL (6.5-8.0)
--- NOTE | 2024-12-09 07:01 | ED.PSYCH ---
HPI - Psych General Chief Complaint: Psychiatric Symptoms Stated Complaint: back spasms Time Seen by Provider: 12/09/24 06:13 Source: patient and EMS Mode of arrival: EMS Limitations: no limitations History of Present Illness ED Provider: Dr. Lola Sanders HPI Narrative: Patient comes to the emergency room complaining of feeling suicidal because she is homeless. Earlier today patient told the triage nurse that she was having back spasms. When I spoke with the patient, patient states that she has mild back pain but it does not biliary bother her. Patient states that she is mostly here for help because she is homeless and she is having SI thoughts. Denies HI Related Data Home Medications ?Medication ?Instructions ?Recorded ?Confirmed divalproex 500 mg tablet,extended 500 mg PO DAILY 12/07/24 12/09/24 release 24 hr Banophen 25 mg PO 12/09/24 Macrobid 100 mg 12/09/24 meclizine 12.5 mg PO 12/09/24 melatonin 10 mg PO BEDTIME 12/09/24 12/09/24 trazodone 50 mg tablet 50 mg PO BEDTIME PRN insomnia 12/09/24 12/09/24 zinc 50 mg PO 12/09/24 Previous Rx's ?Medication ?Instructions ?Recorded albuterol sulfate 90 mcg/actuation 2 puff inhalation QID PRN 11/26/24 aerosol inhaler (Ventolin HFA) Shortness Of Breath 30 days #1 inhaler atorvastatin 10 mg tablet 10 mg PO BEDTIME 30 days #30 tabs 11/26/24 cetirizine 10 mg tablet 10 mg PO DAILY PRN Allergy 11/26/24 Symptoms 30 days #30 tabs fluticasone furoate 100 1 inh inhalation RDAILY 30 days #1 11/26/24 mcg-vilanterol 25 mcg/dose inhaler inhalation powder (Breo Ellipta) fluticasone propionate 50 1 spray intranasal DAILY 30 days 11/26/24 mcg/actuation nasal #1 inhaler spray,suspension haloperidol 5 mg tablet 7.5 mg (1.5 x 5 mg) PO BID 30 days 11/26/24 #21 tabs olanzapine 10 mg tablet 10 mg PO BID Agitation 30 days #60 11/26/24 tabs Allergies Allergy/AdvReac Type Severity Reaction Status Date / Time animal dander (PET DANDER) Allergy Unknown Itching Verified 12/09/24 03:30 bee pollen (BEE STINGS) Allergy Unknown Swelling Verified 12/09/24 03:30 house dust Allergy Unknown Unknown Verified 12/09/24 03:30 shellfish derived (SHELLFISH Allergy Unknown Swelling Verified 12/09/24 03:30 DERIVED) Seasonal Allergies Allergy Itching Verified 12/09/24 03:30 Review of Systems Review of Systems: Constitutional : No Weight loss, No Fever, No Chills, No Night Sweats, No Fatigue, No Malaise ENT/Mouth : No Hearing loss, No Ear Pain, No Nasal Congestion, No Sinus Pain, No Hoarseness, No sore throat, No Rhinorrhea, No Swallowing Difficulty Eyes: No Eye Pain, No Swelling, No Redness, No Foreign Body, No Discharge, No Vision Changes Cardiovascular : No Chest Pain, No SOB, No Dyspnea on Exertion, No Orthopnea, No Edema, No Palpitations Respiratory : No Cough, No Sputum, No Wheezing, No Smoke Exposure, No Dyspnea Gastrointestinal : No Nausea, No Vomiting, No Diarrhea, No Constipation, No abdominal Pain, No Hematochezia, No Melena Genitourinary : no irregular bleeding, No Dysuria, No Urinary Frequency, No Hematuria, No Urinary Incontinence, No Urgency, No Flank Pain, No Urinary Flow Changes, No Hesitancy Musculoskeletal : No joint pain, No Myalgias, No Joint Swelling Skin : No Skin Lesions, No rash Neuro : No Weakness, No Numbness, No Paresthesias, No Loss of Consciousness, No Dizziness, No Headache Psych : Complaining of anxiety, panic attacks, depression and suicidal thoughts, all secondary to being homeless. Denies HI Heme/Lymph: No Bruising, No Bleeding,No Lymphadenopathy Endocrine : No Polyuria, No Polydipsia, No Temperature Intolerance [facility] Past Medical History Medical History Suicidal ideation Suicidal ideation Bipolar disorder Severe asthma with allergic rhinitis Allergic rhinitis Vertigo Surgical History No pertinent past surgical history Family History Family History Father Lung cancer CVD (cardiovascular disease) Mother Past heart attack Diabetes Emphysema lung CVD (cardiovascular disease) Family/Other FH: mental illness Maternal Grandmother No problems noted. Paternal Grandmother No problems noted. Social History Social History Household Members: None Housing: Homeless Do you presently have visiting nurse or other home services: No Unable to assess alcohol history related to: Refusing to respond Alcohol intake: current Alcohol intake frequency: a few times a week Alcohol type: hard liquor Comment: close observations at night Patient Tobacco Use Status: Current everyday Tobacco user Tobacco use type: Cigarette Cigarette Packs Per Day: 1 Cigarettes Per Day: 20.0 Years Smoked: 11 Smoked in Last 30 Days: Yes e-Cigarette/Vaping Use: Never Used Patient Interested in Nicotine Replacement: Yes Patient Given Instructions on How to Stop Smoking: Yes Date Education Initiated: 12/09/24 Second Hand Smoke Exposure: No Use of substances other than those prescribed or required for medical reasons: Yes Substance Use Type: Marijuana Substance Use Frequency: Daily Currently Displaying Signs/Symptoms of Drug Intoxication Withdrawal: No Have you been hit, kicked, punched, or otherwise hurt by someone within the past year? If so, by whom?: No Do you feel safe in your current relationship?: No Current Relationship Is there a partner from a previous relationship who is making you feel unsafe now?: No Are you made to feel afraid or neglected: No Spiritual Healthcare Practices: none reported Yarsani Healthcare Practices: none reported Cultural Healthcare Practices: none reported Advance Directives: No Advance Directives Information Provided: Yes Do you have thoughts of harming others: None Do you have a plan to hurt others: No Plan Recently lost weight without trying: No How much weight loss: Not applicable Eating poorly because of decreased appetite: No Nutrition screen score: 0 Nutrition Risks: No Nutritional Risk Patient : No : No Poor oral hygiene: No service: No Current occupational status: unemployed Sexual orientation: Straight/Heterosexual Cognitive needs: No Hearing needs: No Vision needs: No Physical Exam Exam: Exam: Appearance: Alert. Oriented X3. Somnolent but easily arousable Eyes: Pupils equal, round and reactive to light. ENT: Pharynx normal. Neck: Normal inspection. Neck supple. No lymph nodes noted. No crepitus CVS: Normal heart rate and rhythm. Pulses normal. Normal S1 and S2 Respiratory: No respiratory distress. Breath sounds normal. No Wheezing. No rales Abdomen: Soft and nontender. No rigidity. No distention. Skin: Skin warm and dry. Normal skin color. Normal skin turgor. Extremities: No lower extremity edema. No Lacerations. No Rash Neuro: Oriented X 3. No motor deficit. No sensory deficit. Moving all extremities. No slurred speech. CN 2 through 12 grossly intact Psych: calm, somnolent Vital Signs: Vital Signs: Last Vital Signs Temp 97.4 F 12/09/24 19:09 Pulse 96 12/09/24 19:09 Resp 16 12/09/24 20:00 BP 115/80 12/09/24 19:09 Pulse Ox 99 12/09/24 19:09 O2 Del Method Room Air 12/09/24 19:09 BMI result Body Mass Index 37.7 Course Reevaluation(s) Reevaluation #1: Dr. Medina: This patient was signed out to me by the overnight physician pending the results of the evaluation by the care team. The patient was medically stable and was also behaviorally stable. Care team evaluation was completed and recommendation was for inpatient hospitalization. The patient was admitted to the inpatient psychiatry unit.. Medical Decision Making Medical Decision Making [facility] Narrative: My interpretation of labs: No significant abnormality in patient's hematology or chemistry. Salicylates and acetaminophen negative, ETOH negative. Care team consult pending Pending: Patient has not provide a urine sample, for urine Toxicology and test Differential Diagnosis Differential Diagnoses: The differential diagnosis associated with the presentation includes (Anxiety, depression, homeless, malingering) Admission/Observation Consideration of admission/observation: Escalation of care including admission/observation considered (Patient is under physician observation waiting to be seen by the care team) Lab Data [facility] Lab Attestation statement: I reviewed the patient's lab results. 12/09/24 04:38 12/09/24 04:38 Labs: Lab Results 12/09/24 12/09/24 Range/Units 04:38 11:06 WBC 6.8 (4.8-10.8) X10*3/uL RBC 3.86 L (4.20-5.50) X10*6/uL Hgb 11.2 L (12.0-16.0) g/dl Hct 33.9 L (37.0-47.0) % MCV 87.8 (80.0-98.0) fL MCH 29.0 (27.0-33.0) pg MCHC 33.0 (31.0-35.0) g/dl RDW 12.5 (11.0-16.0) % Plt Count 279 (160-400) X10*3/uL MPV 8.9 L (9.4-12.3) fL Immature Gran % (Auto) 0.7 H (0.0-0.4) % Neut % (Auto) 52.6 (45-73) % Lymph % (Auto) 36.8 (20-40) % [place] % (Auto) 6.8 (2-11) % Eos % (Auto) 2.2 (0-4) % Baso % (Auto) 0.9 (0-2) % Lymph # (Auto) 2.5 (1.2-4.9) X10*3/uL [place] # (Auto) 0.5 (0.1-1.2) X10*3/uL Eos # (Auto) 0.2 (0.0-0.4) X10*3/uL Baso # (Auto) 0.1 (0.0-0.2) X10*3/uL Abs Immat Gran (auto) 0.05 H (0.00-0.03) X10*3/uL Absolute Neuts (auto) 3.6 (2.0-8.3) x10*3/uL Absolute Nucleated RBC 0.000 (0.0-0.012) X10*3/uL Nucleated RBC % (auto) 0.0 (0.0-0.2) /100WBC Sodium 143 (135-145) mmol/L Potassium 3.9 (3.3-5.1) mmol/L Chloride 107 (96-108) mmol/L Carbon Dioxide 28 (22-29) mmol/L Anion Gap 12 (12-20) BUN 18 H (9-16) mg/dL Creatinine 0.66 (0.5-1.4) mg/dL Estim Creat Clear Calc 119.3 Estimated GFR > 60 Random Glucose 84 (60-115) mg/dL Calcium 8.8 (8.4-10.2) mg/dL Magnesium 2.1 (1.6-2.6) mg/dL Total Bilirubin 0.3 (0.0-1.0) mg/dL AST 15 (5-31) U/L ALT 10 (0-31) U/L Alkaline Phosphatase 78 (39-117) U/L Total Protein 6.8 (6.5-8.0) g/dL Albumin 4.0 (3.5-5.0) g/dL Urine Color Yellow Urine Appearance Clear Urine pH 7.5 (5.0-9.0) Ur Specific [place] 1.015 (1.005-1.025) Urine Protein Negative (Neg-Trace) mg/dL Urine Glucose (UA) Negative (Negative) mg/dL Urine Ketones Negative (Negative) mg/dL Urine Blood Negative (Negative) Urine Nitrite Negative (Negative) Ur Leukocyte Esterase Large (3+) H (Negative) Urine RBC 0-2 (0-2) /HPF Urine WBC 6-10 H (0-5) /HPF Ur Squamous Epith Cells 3-5 (0-2) /HPF Urine Bacteria Trace (None Seen) Hyaline Casts 0-2 (0-2) /LPF Urine Test NEGATIVE (NEGATIVE) Salicylates < 5.0 L (15-30) mg/dL Urine Opiates Screen Not Detected (Not Detect) Ur Buprenorphine Scrn Not Detected (Not Detect) ng/mL Ur Oxycodone Screen Not Detected (Not Detect) ng/mL Urine Methadone Screen Not Detected (Not Detect) ng/mL Urine Fentanyl Screen Not Detected (Not Detect) Acetaminophen < 3 (<30) mcg/mL Ur Barbiturates Screen Not Detected (Not Detect) Ur Phencyclidine Scrn Not Detected (Not Detect) Ur Amphetamines Screen Not Detected (Not Detect) U Benzodiazepines Scrn Not Detected (Not Detect) Urine Cocaine Screen Not Detected (Not Detect) U Marijuana (THC) Screen Not Detected (Not Detect) Ethyl Alcohol < 10 mg/dL Critical Care Time Critical Care Time Critical Care Time: Yes Total Critical Care Time: 35 Attestation: I have personally provided critical care time. Time includes review of lab data, radiology results, discussion with consultants, and monitoring for potential decompensation. Intervention performed as documented. Discharge Plan Discharge Clinical Impression: Anxiety and depression, Homeless Patient Disposition: Admitted As Inpatient Interventions: Admission Worksheet (ED) Last Done: 12/09/24 15:19 Discharge Date/Time: 12/09/24 15:26
--- NOTE | 2024-12-09 07:15 | PC.NURSE ---
medications obtained from patient's personal belongings. medication storage record created. medications sent to pharmacy. triplicate form now in pt chart.
[2024-12-09 11:23] LABS: Appearance Urine Clear; Glucose Urine UA Negative (Negative); PH 7.5 (5.0-9.0); Specific Gravity - Urine 1.015 (1.005-1.025); UMIC TRIGGER UACC YES
[2024-12-09 11:24] LABS: UPreg QC Valid YES
[2024-12-09 11:34] LABS: Cannabinoid Screen Urine Not Detected (Not Detect)
[2024-12-09 11:36] LABS: UACC Culture Trigger YES
--- NOTE | 2024-12-09 12:45 | PC.NURSE ---
Patient has been sleeping all day. Will eat and go back to sleep.
--- NOTE | 2024-12-09 18:52 | PC.ADMIT ---
Pt is a 39-year-old female with a history of schizoaffective disorder and depression who was brought in to the ED via the police after reporting SI w/ plan to OD on some pills , and hopelessness. Pt reporting feelings of worthlessness and low mood. Has been living in [address] and not following up with aftercare planning. Pt was recently on M3 for similar presentation (depression, SI). Prior to this pt was on m5, disorganized, responding to internal stimuli and being inappropriate. This time however, pt is flat, is not heard self-dialoguing and is calm+cooperative with chemical cell changer and admission. Pt reporting 10/10 for anxiety and depression Skin check completed with no significant findings. Pt states she uses marijuana daily however utox (-) for all substances.
[2024-12-09 19:09] VITALS: BP 115/80; PULSE 96; TEMP 36.3; O2SAT 99
[2024-12-09 20:00] VITALS: RESP 16
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
[2024-12-10 08:00] VITALS: BP 120/69; PULSE 88; TEMP 36.2; O2SAT 98
[2024-12-10 09:15] LABS: Hemoglobin A1C 70.6828 umol/L; Total Hemoglobin (HGBA1C) 3118.6127 umol/L
[2024-12-10 09:26] LABS: Alanine Aminotransferase 9 U/L (0-31); Albumin Level 3.9 g/dL (3.5-5.0); Alkaline Phosphatase 77 U/L (39-117); Anion Gap 10 (12-20); Aspartate Amino Transferase 18 U/L (5-31); Blood Urea Nitrogen 15 mg/dL (9-16); Calcium 9.1 mg/dL (8.4-10.2); Carbon Dioxide 28 mmol/L (22-29); Chloride 106 mmol/L (96-108); Cholesterol 163 mg/dL (<200); Creatinine Clr Calc Pharmacy 131.3; Estimated Glomerular Filt Rate > 60; HDL Cholesterol 29 mg/dL (>40); Magnesium 2.0 mg/dL (1.6-2.6); Potassium 3.9 mmol/L (3.3-5.1); Sodium 140 mmol/L (135-145); Total Protein 6.8 g/dL (6.5-8.0); Triglycerides 122 mg/dL (<150)
[2024-12-10 09:44] LABS: Free T4 (Free Thyroxine) 0.96 ng/dL (0.71-1.85); Thyroid Stimulating Hormone 1.22 uIU/mL (0.32-4.0)
[2024-12-10 09:56] LABS: Folate 10.6 ng/mL (> or = 4.0); Vitamin B12 374 pg/mL (200-900)
--- NOTE | 2024-12-10 10:27 | HO.PSYCHPN ---
Subjective Subjective Date of Service: 12/10/24 Reason For Visit: Schizoaffective disorder, bipolar type Subjective Notes: Conditional Voluntary Healthcare Proxy: No Guardianship: No Medical Problems Affecting Mental Status: No Interim History: Samaria is med compliant and reports depression with SI and plan to OD. I have been living in the street . Being homeless for me is dangerous . I need your help to find custodial. I need to get my ID, medical records, a medical bill, my certificate and SS card to get a place to live and I need your help. Pt made a call to the [facility] today. Wanting to work with the team to help her establish a more secure community plan. No sx of psychosis today- active, goal oriented and participatory. Medication Compliance: Yes Side effects from medications: No Attending Groups: Intermittent Review of Systems Acute medical concerns: No Review of Systems Review of Systems Denies Mental Status Exam Mental Status Exam Patient Appearance: Appropriate Patient Orientation: Person, Place, Time and Situation Level of Consciousness: Alert Patient Behavior: Talkative and Good Eye Contact Mood Description: Anxious and Apprehensive Affect Description: Anxious and Apprehensive Patient Cognition Impaired: No Ability to Follow Directions: Good Speech Pattern: Spontaneous Speech Memory Description: Episodic Impaired Hallucinations: None Delusions: Not Present Thought Process: Rumination Thought Content: positive for Circumstantial, positive for Perseveration, positive for Preoccupation and positive for Suicidal Ideation Depressive Symptoms: Increased Anxiety and Thoughts of /Suicide Judgement: Fair Diagnostics Vital Signs (24Hr): Vital Signs - 24 hr 12/09/24 19:09 12/09/24 20:00 Temperature 97.4 F Pulse Rate 96 Respiratory Rate 16 Blood Pressure 115/80 Pulse Oximetry 99 Oxygen Delivery Method Room Air BMI result Body Mass Index 37.7 Labs 12/09/24 04:38 12/10/24 08:02 Labs: Laboratory Results - last 48 hr 12/09/24 12/09/24 12/10/24 04:38 11:06 08:02 WBC 6.8 RBC 3.86 L Hgb 11.2 L Hct 33.9 L MCV 87.8 MCH 29.0 MCHC 33.0 RDW 12.5 Plt Count 279 MPV 8.9 L Immature Gran % (Auto) 0.7 H Neut % (Auto) 52.6 Lymph % (Auto) 36.8 [place] % (Auto) 6.8 Eos % (Auto) 2.2 Baso % (Auto) 0.9 Lymph # (Auto) 2.5 [place] # (Auto) 0.5 Eos # (Auto) 0.2 Baso # (Auto) 0.1 Abs Immat Gran (auto) 0.05 H Absolute Neuts (auto) 3.6 Absolute Nucleated RBC 0.000 Nucleated RBC % (auto) 0.0 Sodium 143 140 Potassium 3.9 3.9 Chloride 107 106 Carbon Dioxide 28 28 Anion Gap 12 10 L BUN 18 H 15 Creatinine 0.66 0.60 Estim Creat Clear Calc 119.3 131.3 Estimated GFR > 60 > 60 Random Glucose 84 76 Estimat Average Glucose 74 Hemoglobin A1c % 4.2 Calcium 8.8 9.1 Magnesium 2.1 2.0 Total Bilirubin 0.3 0.4 AST 15 18 ALT 10 9 Alkaline Phosphatase 78 77 Total Protein 6.8 6.8 Albumin 4.0 3.9 Triglycerides 122 Cholesterol 163 LDL Cholesterol, Calc 110 H HDL Cholesterol 29 L Vitamin B12 374 Folate 10.6 TSH 1.22 Free T4 0.96 Urine Color Yellow Urine Appearance Clear Urine pH 7.5 Ur Specific Benedict 1.015 Urine Protein Negative Urine Glucose (UA) Negative Urine Ketones Negative Urine Blood Negative Urine Nitrite Negative Ur Leukocyte Esterase Large (3+) H Urine RBC 0-2 Urine WBC 6-10 H Ur Squamous Epith Cells 3-5 Urine Bacteria Trace Hyaline Casts 0-2 Urine Test NEGATIVE Salicylates < 5.0 L Urine Opiates Screen Not Detected Ur Buprenorphine Scrn Not Detected Ur Oxycodone Screen Not Detected Urine Methadone Screen Not Detected Urine Fentanyl Screen Not Detected Acetaminophen < 3 Ur Barbiturates Screen Not Detected Ur Phencyclidine Scrn Not Detected Ur Amphetamines Screen Not Detected U Benzodiazepines Scrn Not Detected Urine Cocaine Screen Not Detected U Marijuana (THC) Screen Not Detected Ethyl Alcohol < 10 Medications Medications Current Medications Acetaminophen (Acetaminophen 325 Mg Tablet) 650 mg PO Q6H PRN PRN Reason: Headache/Pain, Scale 1-10 Al Hydroxide/Mg Hydroxide (Magnesium Hydrox/Alum Hydrox 30 Ml Oral.Susp) 30 ml PO Q6H PRN PRN Reason: Heartburn/Nausea Albuterol Sulfate (Albuterol Sulfate 90 Mcg 8 Gm Inhaler) 2 puff INHALE RQ6H PRN PRN Reason: Wheezing Atorvastatin Calcium (Atorvastatin Calcium 10 Mg Tablet) 10 mg PO BEDTIME NATALIA Cyclobenzaprine HCl (Cyclobenzaprine Hcl 10 Mg Tablet) 10 mg PO BID PRN PRN Reason: Muscle Spasm Diphenhydramine HCl (Diphenhydramine Hcl 25 Mg Capsule) 50 mg PO BID PRN PRN Reason: Anxiety Divalproex Sodium (Divalproex Sodium Er 500 Mg Tab.Er.24h) 1,000 mg PO BEDTIME [facility] Fluticasone Propionate (Fluticasone Propionate Nasal 16 Gm Barco) 1 spray NOSTRIL-B DAILY [facility] Fluticasone/Vilanterol (Fluticasone/Vilanterol 100/25 Blst.W.Dev) 1 puff INHALE RDAILY [facility] Haloperidol (Haloperidol 0.5 Mg Tablet) 7.5 mg PO BID [facility] Hydroxyzine HCl (Hydroxyzine Hcl 25 Mg Tablet) 25 mg PO Q6H PRN PRN Reason: mild anxiety Magnesium Hydroxide (Milk Of Magnesia 30 Ml Oral.Susp) 30 ml PO DAILY PRN PRN Reason: Constipation Meclizine HCl (Meclizine Hcl 12.5 Mg Tablet) 12.5 mg PO Q8H PRN PRN Reason: dizziness Montelukast Sodium (Montelukast Sodium 10 Mg Tablet) 10 mg PO DAILY [facility] Nicotine Polacrilex (Nicotine Polacrilex 2 Mg Gum) 4 mg BUCCAL Q2H PRN PRN Reason: Nicotine Cravings Non-Formulary Medication (Cetirizine) 10 mg PO DAILY PRN PRN Reason: allergy symptoms Olanzapine (Olanzapine Odt 10 Mg Tab.Rapdis) 10 mg TRANSLINGU BID [facility] Tiotropium [place] (Tiotropium [place] 2.5 Mcg 1 Puff/2.5 Mcg Mist.Inhal) 2 puff INHALE RDAILY [facility] Trazodone HCl (Trazodone Hcl 50 Mg Tablet) 50 mg PO BEDTIME MRX1 PRN PRN Reason: Insomnia Allergies Allergies Allergy/AdvReac Type Severity Reaction Status Date / Time animal dander (PET DANDER) Allergy Unknown Itching Verified 12/09/24 03:30 bee pollen (BEE STINGS) Allergy Unknown Swelling Verified 12/09/24 03:30 house dust Allergy Unknown Unknown Verified 12/09/24 03:30 shellfish derived (SHELLFISH Allergy Unknown Swelling Verified 12/09/24 03:30 DERIVED) Seasonal Allergies Allergy Itching Verified 12/09/24 03:30 Assessment & Plan Assessment & Plan (1) PTSD (post-traumatic stress disorder): Status: Acute Code(s): F43.10 - Post-traumatic stress disorder, unspecified (2) Schizoaffective disorder: Qualifiers: Schizoaffective disorder type: unspecified Qualified Code(s): F25.9 - Schizoaffective disorder, unspecified Status: Acute Code(s): F25.9 - Schizoaffective disorder, unspecified (3) Alcohol use: Status: Acute Code(s): F10.90 - Alcohol use, unspecified, uncomplicated Plan HPI: Patient is 39 year old currently single Korean speaking female who with history of autism, schizoaffective, bipolar type who has not had stable housing for many months. She is well known to the [facility] and psychiatric units. She was BIBA complaining of SI, homelessness. She states I am not feeling like myself and want to harm myself. CC feeling so well. I am homeless. I do not feel like myself past couple of weeks. I do not have people to help me in community . Patient explained problems that she needs help with : Housing, SSI. ID, and certification. Reassure patient that, we can not help her with those concerns as the inpatient level of care. Reports passive SI with thoughts of taking pills but she knows that she is can not do it here, denies SIB, denies HI, denies AVH. However reports sometimes he has she sees people, images, and sometimes hearing bad thoughts to harm myself . Reports history of suicidal thoughts, up to 6 suicide attempts via popping pills, drinking or using cocaine. Mood is bad, depressed, anxious . She is tearful, scared being on the street . Reports that she slept a lot , not having enough food as she does not have money to for food. Goal is t to go to respite or to the custodial after discharge. Reports consistently taking medication. Formulation/clinical reasoning: Increase in depression, increase in sleep, tearful, hopeless. Usually patient appeared to be happy, but this time he she is tearful and depressed. History of schizoaffective bipolar type, history of homeless, history of not compliant with medications, on not follow-up with outpatient providers. Reports that she was not referred to any outpatient services, currently has passive suicidal thoughts. History of AVH. Given the above information, patient will be benefit in restrictive environment her safety, medication management to target depression symptoms, refer patient to outpatient psychiatric services as aftercare. Hospital course: 12/09/24: Will have the attending taking her home medications. Need clarification. Some orders was held on admission. 12/10: Regime review with pt and re-established. Assist pt in connecting to community resources to help with housing Collateral contact Med adjustments as needed Pt has made a call to the [facility] to discuss sober living. Plan Patient on 15 minute checks for safety. Admitted to . CV. Work with treatment team to do collateral and possible for custodial/respite referral. Patient educated on: therapeutic strategies Informed Consent: understands Reason for continued inpatient stay Substantial Risk for: rapid decompensation Time Spent With Patient Time: Total time managing care of this patient today ____ minutes.
[2024-12-10] MEDS: OLANZapine ODT 10 MG TAB.RAPDIS TRANSLINGU ×2 (11:22→22:31)
[2024-12-10] MEDS: Fluticasone/Vilanterol 100/25 BLST.W.DEV 1 PUFF INHALE (12:04)
[2024-12-10] MEDS: Tiotropium Bromide 2.5 mcg 1 PUFF/2.5 MCG MIST.INHAL 2 PUFF INHALE (12:05)
[2024-12-10] MEDS: Albuterol Sulfate 90 MCG 8 GM INHALER 2 PUFF INHALE ×2 (12:06→17:32)
[2024-12-11 08:00] VITALS: BP 135/77; PULSE 82; RESP 16; TEMP 36.3; O2SAT 98
[2024-12-11] MEDS: Albuterol Sulfate 90 MCG 8 GM INHALER 2 PUFF INHALE ×2 (08:00→16:19)
[2024-12-11] MEDS: Fluticasone/Vilanterol 100/25 BLST.W.DEV 1 PUFF INHALE (08:02)
[2024-12-11] MEDS: OLANZapine ODT 10 MG TAB.RAPDIS TRANSLINGU ×2 (08:02→20:42)
[2024-12-11] MEDS: Tiotropium Bromide 2.5 mcg 1 PUFF/2.5 MCG MIST.INHAL 2 PUFF INHALE (08:02)
--- NOTE | 2024-12-11 17:26 | HO.PSYCHPN ---
Subjective Subjective Date of Service: 12/11/24 Reason For Visit: Schizoaffective disorder, bipolar type Interim History: Patient seen and discussed with team. She remains depressed. She is somewhat isolated in her room. She is asking for my medical records, medical bills and I want to go to a sober living place. Denies SI/HI today. Review of Systems Review of Systems Denies Mental Status Exam Mental Status Exam Narrative: Pt is alert and oriented x4; behavior is cooperative, calm, pleasant, and cooperative but tearful; dressed in casual attire; mood is described as , depressed and anxious ; eye contact appropriate; mood and affect are congruent, Speech is normal rate, volume and not pressured; thought process is organized; Thought content is within normal limit with passive SI; denies HI/VH/AH. Do not appear to be psychotic, do not make any delusional/paranoid statements. Insight and judgment are poor. Goal-directed. Patient Appearance: Appropriate Patient Orientation: Person, Place, Time and Situation Level of Consciousness: Alert Patient Behavior: Talkative and Good Eye Contact Mood Description: Anxious and Apprehensive Affect Description: Anxious and Apprehensive Patient Cognition Impaired: No Ability to Follow Directions: Good Speech Pattern: Spontaneous Speech Memory Description: Episodic Impaired Diagnostics Vital Signs (24Hr): Vital Signs - 24 hr 12/11/24 08:00 Temperature 97.4 F Pulse Rate 82 Respiratory Rate 16 Blood Pressure 135/77 Pulse Oximetry 98 Oxygen Delivery Method Room Air BMI result Body Mass Index 37.7 Labs 12/09/24 04:38 12/10/24 08:02 Labs: Laboratory Results - last 48 hr 12/10/24 08:02 Sodium 140 Potassium 3.9 Chloride 106 Carbon Dioxide 28 Anion Gap 10 L BUN 15 Creatinine 0.60 Estim Creat Clear Calc 131.3 Estimated GFR > 60 Random Glucose 76 Estimat Average Glucose 74 Hemoglobin A1c % 4.2 Calcium 9.1 Magnesium 2.0 Total Bilirubin 0.4 AST 18 ALT 9 Alkaline Phosphatase 77 Total Protein 6.8 Albumin 3.9 Triglycerides 122 Cholesterol 163 LDL Cholesterol, Calc 110 H HDL Cholesterol 29 L Vitamin B12 374 Folate 10.6 TSH 1.22 Free T4 0.96 Medications Medications Current Medications Acetaminophen (Acetaminophen 325 Mg Tablet) 650 mg PO Q6H PRN PRN Reason: Headache/Pain, Scale 1-10 Al Hydroxide/Mg Hydroxide (Magnesium Hydrox/Alum Hydrox 30 Ml Oral.Susp) 30 ml PO Q6H PRN PRN Reason: Heartburn/Nausea Albuterol Sulfate (Albuterol Sulfate 90 Mcg 8 Gm Inhaler) 2 puff INHALE RQ6H PRN PRN Reason: Wheezing Last Admin: 12/11/24 16:19 Dose: 2 puff Atorvastatin Calcium (Atorvastatin Calcium 10 Mg Tablet) 10 mg PO BEDTIME [facility] Last Admin: 12/10/24 22:31 Dose: 10 mg Cyclobenzaprine HCl (Cyclobenzaprine Hcl 10 Mg Tablet) 10 mg PO BID PRN PRN Reason: Muscle Spasm Last Admin: 12/11/24 08:02 Dose: 10 mg Diphenhydramine HCl (Diphenhydramine Hcl 25 Mg Capsule) 50 mg PO BID PRN PRN Reason: Anxiety Divalproex Sodium (Divalproex Sodium Er 500 Mg Tab.Er.24h) 1,000 mg PO BEDTIME [facility] Last Admin: 12/10/24 22:31 Dose: 1,000 mg Fluticasone Propionate (Fluticasone Propionate Nasal 16 Gm [place]) 1 spray NOSTRIL-B DAILY [facility] Last Admin: 12/11/24 08:02 Dose: 1 spray Fluticasone/Vilanterol (Fluticasone/Vilanterol 100/25 Blst.W.Dev) 1 puff INHALE RDAILY [facility] Last Admin: 12/11/24 08:02 Dose: 1 puff Haloperidol (Haloperidol 5 Mg Tablet) 7.5 mg PO BID [facility] Last Admin: 12/11/24 08:02 Dose: 7.5 mg Hydroxyzine HCl (Hydroxyzine Hcl 25 Mg Tablet) 25 mg PO Q6H PRN PRN Reason: mild anxiety Last Admin: 12/11/24 16:18 Dose: 25 mg Loratadine (Loratadine 10 Mg Tablet) 10 mg PO DAILY PRN PRN Reason: allergy symptoms Magnesium Hydroxide (Milk Of Magnesia 30 Ml Oral.Susp) 30 ml PO DAILY PRN PRN Reason: Constipation Meclizine HCl (Meclizine Hcl 12.5 Mg Tablet) 12.5 mg PO Q8H PRN PRN Reason: dizziness Last Admin: 12/11/24 08:02 Dose: 12.5 mg Montelukast Sodium (Montelukast Sodium 10 Mg Tablet) 10 mg PO DAILY [facility] Last Admin: 12/11/24 08:02 Dose: 10 mg Nicotine Polacrilex (Nicotine Polacrilex 2 Mg Gum) 4 mg BUCCAL Q2H PRN PRN Reason: Nicotine Cravings Olanzapine (Olanzapine Odt 10 Mg Tab.Rapdis) 10 mg TRANSLINGU BID [facility] Last Admin: 12/11/24 08:02 Dose: 10 mg Tiotropium [place] (Tiotropium [place] 2.5 Mcg 1 Puff/2.5 Mcg Mist.Inhal) 2 puff INHALE RDAILY [facility] Last Admin: 12/11/24 08:02 Dose: 2 puff Trazodone HCl (Trazodone Hcl 50 Mg Tablet) 50 mg PO BEDTIME MRX1 PRN PRN Reason: Insomnia Allergies Allergies Allergy/AdvReac Type Severity Reaction Status Date / Time animal dander (PET DANDER) Allergy Unknown Itching Verified 12/09/24 03:30 bee pollen (BEE STINGS) Allergy Unknown Swelling Verified 12/09/24 03:30 house dust Allergy Unknown Unknown Verified 12/09/24 03:30 shellfish derived (SHELLFISH Allergy Unknown Swelling Verified 12/09/24 03:30 DERIVED) Seasonal Allergies Allergy Itching Verified 12/09/24 03:30 Assessment & Plan Assessment & Plan (1) PTSD (post-traumatic stress disorder): Status: Acute Code(s): F43.10 - Post-traumatic stress disorder, unspecified (2) Schizoaffective disorder: Qualifiers: Schizoaffective disorder type: unspecified Qualified Code(s): F25.9 - Schizoaffective disorder, unspecified Status: Acute Code(s): F25.9 - Schizoaffective disorder, unspecified (3) Alcohol use: Status: Acute Code(s): F10.90 - Alcohol use, unspecified, uncomplicated Plan HPI: Patient is 39 year old currently single Georgian speaking female who with history of autism, schizoaffective, bipolar type who has not had stable housing for many months. She is well known to the [facility] and psychiatric units. She was BIBA complaining of SI, homelessness. She states I am not feeling like myself and want to harm myself. CC feeling so well. I am homeless. I do not feel like myself past couple of weeks. I do not have people to help me in community . Patient explained problems that she needs help with : Housing, SSI. ID, and certification. Reassure patient that, we can not help her with those concerns as the inpatient level of care. Reports passive SI with thoughts of taking pills but she knows that she is can not do it here, denies SIB, denies HI, denies AVH. However reports sometimes he has she sees people, images, and sometimes hearing bad thoughts to harm myself . Reports history of suicidal thoughts, up to 6 suicide attempts via popping pills, drinking or using cocaine. Mood is bad, depressed, anxious . She is tearful, scared being on the street . Reports that she slept a lot , not having enough food as she does not have money to for food. Goal is t to go to respite or to the [facility] after discharge. Reports consistently taking medication. Formulation/clinical reasoning: Increase in depression, increase in sleep, tearful, hopeless. Usually patient appeared to be happy, but this time he she is tearful and depressed. History of schizoaffective bipolar type, history of homeless, history of not compliant with medications, on not follow-up with outpatient providers. Reports that she was not referred to any outpatient services, currently has passive suicidal thoughts. History of AVH. Given the above information, patient will be benefit in restrictive environment her safety, medication management to target depression symptoms, refer patient to outpatient psychiatric services as aftercare. Hospital course: 12/09/24: Will have the attending taking her home medications. Need clarification. Some orders was held on admission. 12/10: Regime review with pt and re-established. Assist pt in connecting to community resources to help with housing Collateral contact Med adjustments as needed Pt has made a call to the [facility] to discuss sober living. 12/11: continue current management and treatment plan. Plan Patient on 15 minute checks for safety. Admitted to [facility]. CV. Work with treatment team to do collateral and possible for [facility]/respite referral. Reason for continued inpatient stay Substantial Risk for: harm to self, inability to function and rapid decompensation Time Spent With Patient Time: Total time managing care of this patient today ____ minutes.
[2024-12-12 07:55] VITALS: BP 139/90; PULSE 100; TEMP 36.6; O2SAT 97
[2024-12-12] MEDS: Fluticasone/Vilanterol 100/25 BLST.W.DEV 1 PUFF INHALE (07:58)
[2024-12-12] MEDS: Tiotropium Bromide 2.5 mcg 1 PUFF/2.5 MCG MIST.INHAL 2 PUFF INHALE (07:59)
[2024-12-12] MEDS: OLANZapine ODT 10 MG TAB.RAPDIS TRANSLINGU ×2 (07:59→22:08)
--- NOTE | 2024-12-12 09:19 | HO.PSYCHPN ---
Subjective Subjective Date of Service: 12/12/24 Reason For Visit: Schizoaffective disorder, bipolar type Interim History: Patient remains depressed. She is withdrawn. She is asking about potential discharge to sober living so she is not homeless. Medication adherent. Denies SI/HI today. Review of Systems Review of Systems Denies Mental Status Exam Mental Status Exam Narrative: Pt is alert and oriented x4; behavior is cooperative, calm, pleasant, and cooperative but tearful; dressed in casual attire; mood is described as , depressed and anxious ; eye contact appropriate; mood and affect are congruent, Speech is normal rate, volume and not pressured; thought process is organized; Thought content is within normal limit with passive SI; denies HI/VH/AH. Do not appear to be psychotic, do not make any delusional/paranoid statements. Insight and judgment are poor. Goal-directed. Patient Appearance: Appropriate Patient Orientation: Person, Place, Time and Situation Level of Consciousness: Alert Patient Behavior: Talkative and Good Eye Contact Mood Description: Anxious and Apprehensive Affect Description: Anxious and Apprehensive Patient Cognition Impaired: No Ability to Follow Directions: Good Speech Pattern: Spontaneous Speech Memory Description: Episodic Impaired Diagnostics Vital Signs (24Hr): Vital Signs - 24 hr 12/12/24 07:55 Temperature 97.8 F Pulse Rate 100 Blood Pressure 139/90 H Pulse Oximetry 97 Oxygen Delivery Method Room Air BMI result Body Mass Index 37.7 Labs 12/09/24 04:38 12/10/24 08:02 Labs: Laboratory Results - last 48 hr 12/10/24 08:02 Sodium 140 Potassium 3.9 Chloride 106 Carbon Dioxide 28 Anion Gap 10 L BUN 15 Creatinine 0.60 Estim Creat Clear Calc 131.3 Estimated GFR > 60 Random Glucose 76 Calcium 9.1 Magnesium 2.0 Total Bilirubin 0.4 AST 18 ALT 9 Alkaline Phosphatase 77 Total Protein 6.8 Albumin 3.9 Triglycerides 122 Cholesterol 163 LDL Cholesterol, Calc 110 H HDL Cholesterol 29 L Vitamin B12 374 Folate 10.6 TSH 1.22 Free T4 0.96 Medications Medications Current Medications Acetaminophen (Acetaminophen 325 Mg Tablet) 650 mg PO Q6H PRN PRN Reason: Headache/Pain, Scale 1-10 Al Hydroxide/Mg Hydroxide (Magnesium Hydrox/Alum Hydrox 30 Ml Oral.Susp) 30 ml PO Q6H PRN PRN Reason: Heartburn/Nausea Albuterol Sulfate (Albuterol Sulfate 90 Mcg 8 Gm Inhaler) 2 puff INHALE RQ6H PRN PRN Reason: Wheezing Last Admin: 12/11/24 16:19 Dose: 2 puff Atorvastatin Calcium (Atorvastatin Calcium 10 Mg Tablet) 10 mg PO BEDTIME [facility] Last Admin: 12/11/24 20:41 Dose: 10 mg Cyclobenzaprine HCl (Cyclobenzaprine Hcl 10 Mg Tablet) 10 mg PO BID PRN PRN Reason: Muscle Spasm Last Admin: 12/12/24 07:59 Dose: 10 mg Diphenhydramine HCl (Diphenhydramine Hcl 25 Mg Capsule) 50 mg PO BID PRN PRN Reason: Anxiety Divalproex Sodium (Divalproex Sodium Er 500 Mg Tab.Er.24h) 1,000 mg PO BEDTIME [facility] Last Admin: 12/11/24 20:42 Dose: 1,000 mg Fluticasone Propionate (Fluticasone Propionate Nasal 16 Gm [place]) 1 spray NOSTRIL-B DAILY [facility] Last Admin: 12/12/24 07:59 Dose: 1 spray Fluticasone/Vilanterol (Fluticasone/Vilanterol 100/25 Blst.W.Dev) 1 puff INHALE RDAILY [facility] Last Admin: 12/12/24 07:58 Dose: 1 puff Haloperidol (Haloperidol 5 Mg Tablet) 7.5 mg PO BID [facility] Last Admin: 12/12/24 07:59 Dose: 7.5 mg Hydroxyzine HCl (Hydroxyzine Hcl 25 Mg Tablet) 25 mg PO Q6H PRN PRN Reason: mild anxiety Last Admin: 12/11/24 16:18 Dose: 25 mg Loratadine (Loratadine 10 Mg Tablet) 10 mg PO DAILY PRN PRN Reason: allergy symptoms Magnesium Hydroxide (Milk Of Magnesia 30 Ml Oral.Susp) 30 ml PO DAILY PRN PRN Reason: Constipation Meclizine HCl (Meclizine Hcl 12.5 Mg Tablet) 12.5 mg PO Q8H PRN PRN Reason: dizziness Last Admin: 12/12/24 07:59 Dose: 12.5 mg Montelukast Sodium (Montelukast Sodium 10 Mg Tablet) 10 mg PO DAILY [facility] Last Admin: 12/12/24 07:59 Dose: 10 mg Nicotine Polacrilex (Nicotine Polacrilex 2 Mg Gum) 4 mg BUCCAL Q2H PRN PRN Reason: Nicotine Cravings Olanzapine (Olanzapine Odt 10 Mg Tab.Rapdis) 10 mg TRANSLINGU BID [facility] Last Admin: 12/12/24 07:59 Dose: 10 mg Tiotropium [place] (Tiotropium [place] 2.5 Mcg 1 Puff/2.5 Mcg Mist.Inhal) 2 puff INHALE RDAILY [facility] Last Admin: 12/12/24 07:59 Dose: 2 puff Trazodone HCl (Trazodone Hcl 50 Mg Tablet) 50 mg PO BEDTIME MRX1 PRN PRN Reason: Insomnia Allergies Allergies Allergy/AdvReac Type Severity Reaction Status Date / Time animal dander (PET DANDER) Allergy Unknown Itching Verified 12/09/24 03:30 bee pollen (BEE STINGS) Allergy Unknown Swelling Verified 12/09/24 03:30 house dust Allergy Unknown Unknown Verified 12/09/24 03:30 shellfish derived (SHELLFISH Allergy Unknown Swelling Verified 12/09/24 03:30 DERIVED) Seasonal Allergies Allergy Itching Verified 12/09/24 03:30 Assessment & Plan Assessment & Plan (1) PTSD (post-traumatic stress disorder): Status: Acute Code(s): F43.10 - Post-traumatic stress disorder, unspecified (2) Schizoaffective disorder: Qualifiers: Schizoaffective disorder type: unspecified Qualified Code(s): F25.9 - Schizoaffective disorder, unspecified Status: Acute Code(s): F25.9 - Schizoaffective disorder, unspecified (3) Alcohol use: Status: Acute Code(s): F10.90 - Alcohol use, unspecified, uncomplicated Plan HPI: Patient is 39 year old currently single [place]ar[place] speaking female who with history of autism, schizoaffective, bipolar type who has not had stable housing for many months. She is well known to the [facility] and psychiatric units. She was BIBA complaining of SI, homelessness. She states I am not feeling like myself and want to harm myself. CC feeling so well. I am homeless. I do not feel like myself past couple of weeks. I do not have people to help me in community . Patient explained problems that she needs help with : Housing, SSI. ID, and certification. Reassure patient that, we can not help her with those concerns as the inpatient level of care. Reports passive SI with thoughts of taking pills but she knows that she is can not do it here, denies SIB, denies HI, denies AVH. However reports sometimes he has she sees people, images, and sometimes hearing bad thoughts to harm myself . Reports history of suicidal thoughts, up to 6 suicide attempts via popping pills, drinking or using cocaine. Mood is bad, depressed, anxious . She is tearful, scared being on the street . Reports that she slept a lot , not having enough food as she does not have money to for food. Goal is t to go to respite or to the [facility] after discharge. Reports consistently taking medication. Formulation/clinical reasoning: Increase in depression, increase in sleep, tearful, hopeless. Usually patient appeared to be happy, but this time he she is tearful and depressed. History of schizoaffective bipolar type, history of homeless, history of not compliant with medications, on not follow-up with outpatient providers. Reports that she was not referred to any outpatient services, currently has passive suicidal thoughts. History of AVH. Given the above information, patient will be benefit in restrictive environment her safety, medication management to target depression symptoms, refer patient to outpatient psychiatric services as aftercare. Hospital course: 12/09/24: Will have the attending taking her home medications. Need clarification. Some orders was held on admission. 12/10: Regime review with pt and re-established. Assist pt in connecting to community resources to help with housing Collateral contact Med adjustments as needed Pt has made a call to the [facility] to discuss sober living. 12/11: continue current management and treatment plan. 12/12: continue current management and treatment plan. Plan Patient on 15 minute checks for safety. Admitted to [facility]. CV. Work with treatment team to do collateral and possible for [facility]/respite referral. Reason for continued inpatient stay Substantial Risk for: inability to function and rapid decompensation Time Spent With Patient Time: Total time managing care of this patient today ____ minutes.
[2024-12-12] MEDS: Albuterol Sulfate 90 MCG 8 GM INHALER 2 PUFF INHALE (12:12)
[2024-12-13] MEDS: Albuterol Sulfate 90 MCG 8 GM INHALER 2 PUFF INHALE ×2 (06:52→17:27)
[2024-12-13 07:58] VITALS: BP 123/78; PULSE 99; RESP 18; TEMP 35.8; O2SAT 98
[2024-12-13] MEDS: OLANZapine ODT 10 MG TAB.RAPDIS TRANSLINGU ×2 (08:03→21:50)
[2024-12-13] MEDS: Fluticasone/Vilanterol 100/25 BLST.W.DEV 1 PUFF INHALE (08:54)
[2024-12-13] MEDS: Tiotropium Bromide 2.5 mcg 1 PUFF/2.5 MCG MIST.INHAL 2 PUFF INHALE (08:55)
--- NOTE | 2024-12-13 10:07 | HO.PSYCHPN ---
Subjective Subjective Date of Service: 12/13/24 Reason For Visit: Schizoaffective disorder, bipolar type Subjective Notes: Conditional Voluntary Healthcare Proxy: No Guardianship: No Medical Problems Affecting Mental Status: No Interim History: Samaria continues to work on finding placement. Today she reports she will transition to [employer] insurance in January. She is working on obtaining medical records and a medical bill to secure the process of getting her identification card. Team is active in helping her search for appropriate programs. She is organized, in behavioral control, interactive and participatory in the process. Medications she reports are effective and without SE. Denies SI,HI,AH, VH. No sx of overt psychosis are noted today-she is organized and focused on this task. She discussed that staying with family continues to not be an option at this time. Medication Compliance: Yes Side effects from medications: No Attending Groups: Intermittent Review of Systems Acute medical concerns: No Review of Systems Review of Systems Denies Mental Status Exam Mental Status Exam Patient Appearance: Appropriate Patient Orientation: Person, Place, Time and Situation Level of Consciousness: Alert Patient Behavior: Appropriate, Talkative, Cooperative and Good Eye Contact Mood Description: Constricted Affect Description: Constricted Patient Cognition Impaired: No Ability to Follow Directions: Good Speech Pattern: Spontaneous Speech Memory Description: Intact Hallucinations: None Delusions: Not Present Thought Process: Intact and Goal Oriented Thought Content: positive for Intact and positive for Goal Oriented Depressive Symptoms: Thoughts of /Suicide (denies) Judgement: Good Diagnostics Vital Signs (24Hr): Vital Signs - 24 hr 12/13/24 07:58 Temperature 96.5 F L Pulse Rate 99 Respiratory Rate 18 Blood Pressure 123/78 Pulse Oximetry 98 Oxygen Delivery Method Room Air BMI result Body Mass Index 37.7 Labs 12/09/24 04:38 12/10/24 08:02 Medications Medications Current Medications Acetaminophen (Acetaminophen 325 Mg Tablet) 650 mg PO Q6H PRN PRN Reason: Headache/Pain, Scale 1-10 Last Admin: 12/12/24 14:21 Dose: 650 mg Al Hydroxide/Mg Hydroxide (Magnesium Hydrox/Alum Hydrox 30 Ml Oral.Susp) 30 ml PO Q6H PRN PRN Reason: Heartburn/Nausea Albuterol Sulfate (Albuterol Sulfate 90 Mcg 8 Gm Inhaler) 2 puff INHALE RQ6H PRN PRN Reason: Wheezing Last Admin: 12/13/24 06:52 Dose: 2 puff Atorvastatin Calcium (Atorvastatin Calcium 10 Mg Tablet) 10 mg PO BEDTIME [facility] Last Admin: 12/12/24 22:08 Dose: 10 mg Cyclobenzaprine HCl (Cyclobenzaprine Hcl 10 Mg Tablet) 10 mg PO BID PRN PRN Reason: Muscle Spasm Last Admin: 12/13/24 08:01 Dose: 10 mg Diphenhydramine HCl (Diphenhydramine Hcl 25 Mg Capsule) 50 mg PO BID PRN PRN Reason: Anxiety Divalproex Sodium (Divalproex Sodium Er 500 Mg Tab.Er.24h) 1,000 mg PO BEDTIME [facility] Last Admin: 12/12/24 22:08 Dose: 1,000 mg Fluticasone Propionate (Fluticasone Propionate Nasal 16 Gm [place]) 1 spray NOSTRIL-B DAILY [facility] Last Admin: 12/13/24 08:54 Dose: 1 spray Fluticasone/Vilanterol (Fluticasone/Vilanterol 100/25 Blst.W.Dev) 1 puff INHALE RDAILY [facility] Last Admin: 12/13/24 08:54 Dose: 1 puff Haloperidol (Haloperidol 5 Mg Tablet) 7.5 mg PO BID [facility] Last Admin: 12/13/24 08:02 Dose: 7.5 mg Hydroxyzine HCl (Hydroxyzine Hcl 25 Mg Tablet) 25 mg PO Q6H PRN PRN Reason: mild anxiety Last Admin: 12/11/24 16:18 Dose: 25 mg Loratadine (Loratadine 10 Mg Tablet) 10 mg PO DAILY PRN PRN Reason: allergy symptoms Magnesium Hydroxide (Milk Of Magnesia 30 Ml Oral.Susp) 30 ml PO DAILY PRN PRN Reason: Constipation Meclizine HCl (Meclizine Hcl 12.5 Mg Tablet) 12.5 mg PO Q8H PRN PRN Reason: dizziness Last Admin: 12/13/24 08:01 Dose: 12.5 mg Montelukast Sodium (Montelukast Sodium 10 Mg Tablet) 10 mg PO DAILY [facility] Last Admin: 12/13/24 08:03 Dose: 10 mg Nicotine Polacrilex (Nicotine Polacrilex 2 Mg Gum) 4 mg BUCCAL Q2H PRN PRN Reason: Nicotine Cravings Olanzapine (Olanzapine Odt 10 Mg Tab.Rapdis) 10 mg TRANSLINGU BID [facility] Last Admin: 12/13/24 08:03 Dose: 10 mg Tiotropium [place] (Tiotropium [place] 2.5 Mcg 1 Puff/2.5 Mcg Mist.Inhal) 2 puff INHALE RDAILY [facility] Last Admin: 12/13/24 08:55 Dose: 2 puff Trazodone HCl (Trazodone Hcl 50 Mg Tablet) 50 mg PO BEDTIME MRX1 PRN PRN Reason: Insomnia Last Admin: 12/12/24 22:10 Dose: 50 mg Allergies Allergies Allergy/AdvReac Type Severity Reaction Status Date / Time animal dander (PET DANDER) Allergy Unknown Itching Verified 12/09/24 03:30 bee pollen (BEE STINGS) Allergy Unknown Swelling Verified 12/09/24 03:30 house dust Allergy Unknown Unknown Verified 12/09/24 03:30 shellfish derived (SHELLFISH Allergy Unknown Swelling Verified 12/09/24 03:30 DERIVED) Seasonal Allergies Allergy Itching Verified 12/09/24 03:30 Assessment & Plan Assessment & Plan (1) PTSD (post-traumatic stress disorder): Status: Acute Code(s): F43.10 - Post-traumatic stress disorder, unspecified (2) Schizoaffective disorder: Qualifiers: Schizoaffective disorder type: unspecified Qualified Code(s): F25.9 - Schizoaffective disorder, unspecified Status: Acute Code(s): F25.9 - Schizoaffective disorder, unspecified (3) Alcohol use: Status: Acute Code(s): F10.90 - Alcohol use, unspecified, uncomplicated Plan HPI: Patient is 39 year old currently single Belarusian speaking female who with history of autism, schizoaffective, bipolar type who has not had stable housing for many months. She is well known to the [facility] ED and psychiatric units. She was BIBA complaining of SI, homelessness. She states I am not feeling like myself and want to harm myself. CC feeling so well. I am homeless. I do not feel like myself past couple of weeks. I do not have people to help me in community . Patient explained problems that she needs help with : Housing, SSI. ID, and certification. Reassure patient that, we can not help her with those concerns as the inpatient level of care. Reports passive SI with thoughts of taking pills but she knows that she is can not do it here, denies SIB, denies HI, denies AVH. However reports sometimes he has she sees people, images, and sometimes hearing bad thoughts to harm myself . Reports history of suicidal thoughts, up to 6 suicide attempts via popping pills, drinking or using cocaine. Mood is bad, depressed, anxious . She is tearful, scared being on the street . Reports that she slept a lot , not having enough food as she does not have money to for food. Goal is t to go to respite or to the penitentiary after discharge. Reports consistently taking medication. Formulation/clinical reasoning: Increase in depression, increase in sleep, tearful, hopeless. Usually patient appeared to be happy, but this time he she is tearful and depressed. History of schizoaffective bipolar type, history of homeless, history of not compliant with medications, on not follow-up with outpatient providers. Reports that she was not referred to any outpatient services, currently has passive suicidal thoughts. History of AVH. Given the above information, patient will be benefit in restrictive environment her safety, medication management to target depression symptoms, refer patient to outpatient psychiatric services as aftercare. Hospital course: 12/09/24: Will have the attending taking her home medications. Need clarification. Some orders was held on admission. 12/10: Regime review with pt and re-established. Assist pt in connecting to community resources to help with housing Collateral contact Med adjustments as needed Pt has made a call to the [facility] to discuss sober living. 12/11: continue current management and treatment plan. 12/12: continue current management and treatment plan. 12/13: Continue tx and assist pt in moving to her next step in residential treatment. Plan Patient on 15 minute checks for safety. Admitted to [facility]. [facility]. Work with treatment team to do collateral and possible for penitentiary/respite referral. Reason for continued inpatient stay Substantial Risk for: rapid decompensation Time Spent With Patient Time: Total time managing care of this patient today ____ minutes.
[2024-12-13 20:00] VITALS: BP 140/71; PULSE 102; RESP 18; TEMP 36.2; O2SAT 96
[2024-12-14 07:55] VITALS: BP 100/53; PULSE 97; RESP 18; TEMP 36.6; O2SAT 92
[2024-12-14] MEDS: Tiotropium Bromide 2.5 mcg 1 PUFF/2.5 MCG MIST.INHAL 2 PUFF INHALE (08:08)
[2024-12-14] MEDS: Fluticasone/Vilanterol 100/25 BLST.W.DEV 1 PUFF INHALE (08:08)
[2024-12-14] MEDS: OLANZapine ODT 10 MG TAB.RAPDIS TRANSLINGU ×2 (08:12→20:53)
--- NOTE | 2024-12-14 11:10 | P.PNPSI_ITS ---
Subjective Subjective Date of Service: 12/14/24 Reason For Visit: Schizoaffective disorder, bipolar type Subjective Notes: Conditional Voluntary Healthcare Proxy: No Guardianship: No Medical Problems Affecting Mental Status: No Interim History: Samaria continues to make calls to programs for sober living. She is consistent in her efforts, able to articulate her needs and identify what assistance she will need before and after discharge. She denies SI,HI,AH,VH. She presents with no symptoms of acute psychosis or tejinder. Her dialogue is rational, clear with a focused train of thought on helping herself secure sober living. Medication Compliance: Yes Side effects from medications: No Attending Groups: Intermittent Review of Systems Acute medical concerns: No Review of Systems Review of Systems Denies Mental Status Exam Mental Status Exam Patient Appearance: Appropriate Patient Orientation: Person, Place, Time and Situation Level of Consciousness: Alert Patient Behavior: Appropriate, Talkative, Cooperative and Good Eye Contact Mood Description: Constricted Affect Description: Constricted Patient Cognition Impaired: No Ability to Follow Directions: Good Speech Pattern: Spontaneous Speech Memory Description: Intact Hallucinations: None Delusions: Not Present Thought Process: Intact and Goal Oriented Thought Content: positive for Intact and positive for Goal Oriented Depressive Symptoms: Thoughts of /Suicide (denies) Judgement: Good Diagnostics Vital Signs (24Hr): Vital Signs - 24 hr 12/13/24 20:00 12/14/24 07:55 Temperature 97.2 F 97.9 F Pulse Rate 102 H 97 Respiratory Rate 18 18 Blood Pressure 140/71 H 100/53 L Pulse Oximetry 96 92 Oxygen Delivery Method Room Air Room Air BMI result Body Mass Index 37.7 Labs 12/09/24 04:38 12/10/24 08:02 Medications Medications Current Medications Acetaminophen (Acetaminophen 325 Mg Tablet) 650 mg PO Q6H PRN PRN Reason: Headache/Pain, Scale 1-10 Last Admin: 12/12/24 14:21 Dose: 650 mg Al Hydroxide/Mg Hydroxide (Magnesium Hydrox/Alum Hydrox 30 Ml Oral.Susp) 30 ml PO Q6H PRN PRN Reason: Heartburn/Nausea Albuterol Sulfate (Albuterol Sulfate 90 Mcg 8 Gm Inhaler) 2 puff INHALE RQ6H PRN PRN Reason: Wheezing Last Admin: 12/13/24 17:27 Dose: 2 puff Atorvastatin Calcium (Atorvastatin Calcium 10 Mg Tablet) 10 mg PO BEDTIME [facility] Last Admin: 12/13/24 21:50 Dose: 10 mg Cyclobenzaprine HCl (Cyclobenzaprine Hcl 10 Mg Tablet) 10 mg PO BID PRN PRN Reason: Muscle Spasm Last Admin: 12/14/24 08:12 Dose: 10 mg Diphenhydramine HCl (Diphenhydramine Hcl 25 Mg Capsule) 50 mg PO BID PRN PRN Reason: Anxiety Divalproex Sodium (Divalproex Sodium Er 500 Mg Tab.Er.24h) 1,000 mg PO BEDTIME [facility] Last Admin: 12/13/24 21:50 Dose: 1,000 mg Fluticasone Propionate (Fluticasone Propionate Nasal 16 Gm [place]) 1 spray NOSTRIL-B DAILY [facility] Last Admin: 12/14/24 08:08 Dose: 1 spray Fluticasone/Vilanterol (Fluticasone/Vilanterol 100/25 Blst.W.Dev) 1 puff INHALE RDAILY [facility] Last Admin: 12/14/24 08:08 Dose: 1 puff Haloperidol (Haloperidol 5 Mg Tablet) 7.5 mg PO BID [facility] Last Admin: 12/14/24 08:12 Dose: 7.5 mg Hydroxyzine HCl (Hydroxyzine Hcl 25 Mg Tablet) 25 mg PO Q6H PRN PRN Reason: mild anxiety Last Admin: 12/11/24 16:18 Dose: 25 mg Loratadine (Loratadine 10 Mg Tablet) 10 mg PO DAILY PRN PRN Reason: allergy symptoms Last Admin: 12/14/24 08:12 Dose: 10 mg Magnesium Hydroxide (Milk Of Magnesia 30 Ml Oral.Susp) 30 ml PO DAILY PRN PRN Reason: Constipation Meclizine HCl (Meclizine Hcl 12.5 Mg Tablet) 12.5 mg PO Q8H PRN PRN Reason: dizziness Last Admin: 12/14/24 08:12 Dose: 12.5 mg Montelukast Sodium (Montelukast Sodium 10 Mg Tablet) 10 mg PO DAILY [facility] Last Admin: 12/14/24 08:13 Dose: 10 mg Nicotine Polacrilex (Nicotine Polacrilex 2 Mg Gum) 4 mg BUCCAL Q2H PRN PRN Reason: Nicotine Cravings Olanzapine (Olanzapine Odt 10 Mg Tab.Rapdis) 10 mg TRANSLINGU BID [facility] Last Admin: 12/14/24 08:12 Dose: 10 mg Tiotropium [place] (Tiotropium [place] 2.5 Mcg 1 Puff/2.5 Mcg Mist.Inhal) 2 puff INHALE RDAILY [facility] Last Admin: 12/14/24 08:08 Dose: 2 puff Trazodone HCl (Trazodone Hcl 50 Mg Tablet) 50 mg PO BEDTIME MRX1 PRN PRN Reason: Insomnia Last Admin: 12/12/24 22:10 Dose: 50 mg Allergies Allergies Allergy/AdvReac Type Severity Reaction Status Date / Time animal dander (PET DANDER) Allergy Unknown Itching Verified 12/09/24 03:30 bee pollen (BEE STINGS) Allergy Unknown Swelling Verified 12/09/24 03:30 house dust Allergy Unknown Unknown Verified 12/09/24 03:30 shellfish derived (SHELLFISH Allergy Unknown Swelling Verified 12/09/24 03:30 DERIVED) Seasonal Allergies Allergy Itching Verified 12/09/24 03:30 Assessment & Plan Assessment & Plan (1) PTSD (post-traumatic stress disorder): Status: Acute Code(s): F43.10 - Post-traumatic stress disorder, unspecified (2) Schizoaffective disorder: Qualifiers: Schizoaffective disorder type: unspecified Qualified Code(s): F25.9 - Schizoaffective disorder, unspecified Status: Acute Code(s): F25.9 - Schizoaffective disorder, unspecified (3) Alcohol use: Status: Acute Code(s): F10.90 - Alcohol use, unspecified, uncomplicated Plan HPI: Patient is 39 year old currently single [place]itian speaking female who with history of autism, schizoaffective, bipolar type who has not had stable housing for many months. She is well known to the [facility] and psychiatric units. She was BIBA complaining of SI, homelessness. She states I am not feeling like myself and want to harm myself. CC feeling so well. I am homeless. I do not feel like myself past couple of weeks. I do not have people to help me in community . Patient explained problems that she needs help with : Housing, SSI. ID, and certification. Reassure patient that, we can not help her with those concerns as the inpatient level of care. Reports passive SI with thoughts of taking pills but she knows that she is can not do it here, denies SIB, denies HI, denies AVH. However reports sometimes he has she sees people, images, and sometimes hearing bad thoughts to harm myself . Reports history of suicidal thoughts, up to 6 suicide attempts via popping pills, drinking or using cocaine. Mood is bad, depressed, anxious . She is tearful, scared being on the street . Reports that she slept a lot , not having enough food as she does not have money to for food. Goal is t to go to respite or to the group home after discharge. Reports consistently taking medication. Formulation/clinical reasoning: Increase in depression, increase in sleep, tearful, hopeless. Usually patient appeared to be happy, but this time he she is tearful and depressed. History of schizoaffective bipolar type, history of homeless, history of not compliant with medications, on not follow-up with outpatient providers. Reports that she was not referred to any outpatient services, currently has passive suicidal thoughts. History of AVH. Given the above information, patient will be benefit in restrictive environment her safety, medication management to target depression symptoms, refer patient to outpatient psychiatric services as aftercare. Hospital course: 12/09/24: Will have the attending taking her home medications. Need clarification. Some orders was held on admission. 12/10: Regime review with pt and re-established. Assist pt in connecting to community resources to help with housing Collateral contact Med adjustments as needed Pt has made a call to the [facility] to discuss sober living. 12/11: continue current management and treatment plan. 12/12: continue current management and treatment plan. 12/13: Continue tx and assist pt in moving to her next step in residential treatment. 12/14: Continue tx Plan Patient on 15 minute checks for safety. Admitted to . CV. Work with treatment team to do collateral and possible for group home/respite referral. Reason for continued inpatient stay Substantial Risk for: rapid decompensation Time Spent With Patient Time: Total time managing care of this patient today ____ minutes.
[2024-12-14] MEDS: Albuterol Sulfate 90 MCG 8 GM INHALER 2 PUFF INHALE (15:57)
[2024-12-14 20:00] VITALS: BP 131/71; PULSE 106; RESP 16; TEMP 36.1; O2SAT 95
[2024-12-15 07:45] VITALS: BP 152/93; PULSE 94; TEMP 36.1; O2SAT 97
[2024-12-15] MEDS: Fluticasone/Vilanterol 100/25 BLST.W.DEV 1 PUFF INHALE (07:50)
[2024-12-15] MEDS: Albuterol Sulfate 90 MCG 8 GM INHALER 2 PUFF INHALE ×3 (07:50→20:03)
[2024-12-15] MEDS: Tiotropium Bromide 2.5 mcg 1 PUFF/2.5 MCG MIST.INHAL 2 PUFF INHALE (07:51)
[2024-12-15] MEDS: OLANZapine ODT 10 MG TAB.RAPDIS TRANSLINGU ×2 (08:08→20:01)
--- NOTE | 2024-12-15 09:01 | P.PNPSI_ITS ---
Subjective Subjective Date of Service: 12/15/24 Reason For Visit: Schizoaffective disorder, bipolar type Subjective Notes: Conditional Voluntary Interim History: She notes that she is feeling good. She slept well last night. She is mildly anxious and depressed due to housing situation. She does not want to go back to the streets. She reports chronic intermittent AH and VH; she hears voices saying that I am not worth it, nobody loves me, and sees birds everyday. She denies commanding AH. She denies SI/HI. Medication Compliance: Yes Side effects from medications: No Attending Groups: Intermittent Review of Systems Acute medical concerns: No Mental Status Exam Mental Status Exam Narrative: Appearance: Casually dressed, adequate hygiene Behavior: Calm and cooperative throughout the interview. Eye contact is appropriate, and there are no signs of psychomotor agitation or retardation Speech: Normal volume and prosody Thought process logical and goal-directed Thought content: Future oriented no self-harming thoughts Mood: anxious and depressed Affect: Blunted SI:denies HI:denies VH/AH: Reports Delusions: None Insight/judgment: Fair insight and judgment Memory/cog: Alert, oriented x 4. grossly intact to conversational testing Diagnostics Vital Signs (24Hr): Vital Signs - 24 hr 12/14/24 20:00 12/15/24 07:45 Temperature 97 F 97 F Pulse Rate 106 H 94 Respiratory Rate 16 Blood Pressure 131/71 152/93 H Pulse Oximetry 95 97 Oxygen Delivery Method Room Air Room Air BMI result Body Mass Index 37.7 Labs 12/09/24 04:38 12/10/24 08:02 Medications Medications Current Medications Acetaminophen (Acetaminophen 325 Mg Tablet) 650 mg PO Q6H PRN PRN Reason: Headache/Pain, Scale 1-10 Last Admin: 12/12/24 14:21 Dose: 650 mg Al Hydroxide/Mg Hydroxide (Magnesium Hydrox/Alum Hydrox 30 Ml Oral.Susp) 30 ml PO Q6H PRN PRN Reason: Heartburn/Nausea Albuterol Sulfate (Albuterol Sulfate 90 Mcg 8 Gm Inhaler) 2 puff INHALE RQ6H PRN PRN Reason: Wheezing Last Admin: 12/15/24 07:50 Dose: 2 puff Atorvastatin Calcium (Atorvastatin Calcium 10 Mg Tablet) 10 mg PO BEDTIME NATALIA Last Admin: 12/14/24 20:53 Dose: 10 mg Cyclobenzaprine HCl (Cyclobenzaprine Hcl 10 Mg Tablet) 10 mg PO BID PRN PRN Reason: Muscle Spasm Last Admin: 12/15/24 08:08 Dose: 10 mg Diphenhydramine HCl (Diphenhydramine Hcl 25 Mg Capsule) 50 mg PO BID PRN PRN Reason: Anxiety Divalproex Sodium (Divalproex Sodium Er 500 Mg Tab.Er.24h) 1,000 mg PO BEDTIME [facility] Last Admin: 12/14/24 20:52 Dose: 1,000 mg Fluticasone Propionate (Fluticasone Propionate Nasal 16 Gm [place]) 1 spray NOSTRIL-B DAILY [facility] Last Admin: 12/15/24 07:51 Dose: 1 spray Fluticasone/Vilanterol (Fluticasone/Vilanterol 100/25 Blst.W.Dev) 1 puff INHALE RDAILY [facility] Last Admin: 12/15/24 07:50 Dose: 1 puff Haloperidol (Haloperidol 5 Mg Tablet) 7.5 mg PO BID [facility] Last Admin: 12/15/24 08:08 Dose: 7.5 mg Hydroxyzine HCl (Hydroxyzine Hcl 25 Mg Tablet) 25 mg PO Q6H PRN PRN Reason: mild anxiety Last Admin: 12/11/24 16:18 Dose: 25 mg Loratadine (Loratadine 10 Mg Tablet) 10 mg PO DAILY PRN PRN Reason: allergy symptoms Last Admin: 12/14/24 08:12 Dose: 10 mg Magnesium Hydroxide (Milk Of Magnesia 30 Ml Oral.Susp) 30 ml PO DAILY PRN PRN Reason: Constipation Meclizine HCl (Meclizine Hcl 12.5 Mg Tablet) 12.5 mg PO Q8H PRN PRN Reason: dizziness Last Admin: 12/15/24 08:08 Dose: 12.5 mg Montelukast Sodium (Montelukast Sodium 10 Mg Tablet) 10 mg PO DAILY [facility] Last Admin: 12/15/24 08:08 Dose: 10 mg Nicotine Polacrilex (Nicotine Polacrilex 2 Mg Gum) 4 mg BUCCAL Q2H PRN PRN Reason: Nicotine Cravings Olanzapine (Olanzapine Odt 10 Mg Tab.Rapdis) 10 mg TRANSLINGU BID [facility] Last Admin: 12/15/24 08:08 Dose: 10 mg Tiotropium [place] (Tiotropium [place] 2.5 Mcg 1 Puff/2.5 Mcg Mist.Inhal) 2 puff INHALE RDAILY NATALIA Last Admin: 12/15/24 07:51 Dose: 2 puff Trazodone HCl (Trazodone Hcl 50 Mg Tablet) 50 mg PO BEDTIME MRX1 PRN PRN Reason: Insomnia Last Admin: 12/12/24 22:10 Dose: 50 mg Allergies Allergies Allergy/AdvReac Type Severity Reaction Status Date / Time animal dander (PET DANDER) Allergy Unknown Itching Verified 12/09/24 03:30 bee pollen (BEE STINGS) Allergy Unknown Swelling Verified 12/09/24 03:30 house dust Allergy Unknown Unknown Verified 12/09/24 03:30 shellfish derived (SHELLFISH Allergy Unknown Swelling Verified 12/09/24 03:30 DERIVED) Seasonal Allergies Allergy Itching Verified 12/09/24 03:30 Assessment & Plan Assessment & Plan (1) PTSD (post-traumatic stress disorder): Status: Acute Code(s): F43.10 - Post-traumatic stress disorder, unspecified (2) Schizoaffective disorder: Qualifiers: Schizoaffective disorder type: unspecified Qualified Code(s): F25.9 - Schizoaffective disorder, unspecified Status: Acute Code(s): F25.9 - Schizoaffective disorder, unspecified (3) Alcohol use: Status: Acute Code(s): F10.90 - Alcohol use, unspecified, uncomplicated Plan HPI: Patient is 39 year old currently single Kosovan speaking female who with history of autism, schizoaffective, bipolar type who has not had stable housing for many months. She is well known to the [facility] and psychiatric units. She was BIBA complaining of SI, homelessness. She states I am not feeling like myself and want to harm myself. CC feeling so well. I am homeless. I do not feel like myself past couple of weeks. I do not have people to help me in community . Patient explained problems that she needs help with : Housing, SSI. ID, and certification. Reassure patient that, we can not help her with those concerns as the inpatient level of care. Reports passive SI with thoughts of taking pills but she knows that she is can not do it here, denies SIB, denies HI, denies AVH. However reports sometimes he has she sees people, images, and sometimes hearing bad thoughts to harm myself . Reports history of suicidal thoughts, up to 6 suicide attempts via popping pills, drinking or using cocaine. Mood is bad, depressed, anxious . She is tearful, scared being on the street . Reports that she slept a lot , not having enough food as she does not have money to for food. Goal is t to go to respite or to the care home after discharge. Reports consistently taking medication. Formulation/clinical reasoning: Increase in depression, increase in sleep, tearful, hopeless. Usually patient appeared to be happy, but this time he she is tearful and depressed. History of schizoaffective bipolar type, history of homeless, history of not compliant with medications, on not follow-up with outpatient providers. Reports that she was not referred to any outpatient services, currently has passive suicidal thoughts. History of AVH. Given the above information, patient will be benefit in restrictive environment her safety, medication management to target depression symptoms, refer patient to outpatient psychiatric services as aftercare. Hospital course: 12/09/24: Will have the attending taking her home medications. Need clarification. Some orders was held on admission. 12/10: Regime review with pt and re-established. Assist pt in connecting to community resources to help with housing Collateral contact Med adjustments as needed Pt has made a call to the [facility] to discuss sober living. 12/11: continue current management and treatment plan. 12/12: continue current management and treatment plan. 12/13: Continue tx and assist pt in moving to her next step in residential treatment. 12/15: Continue current treatment regimen. Plan Patient on 15 minute checks for safety. Admitted to . CV. Work with treatment team to do collateral and possible for care home/respite referral. Patient educated on: therapeutic strategies Reason for continued inpatient stay Substantial Risk for: rapid decompensation Time Spent With Patient Time: Total time managing care of this patient today ____ minutes.
[2024-12-15 20:00] VITALS: BP 123/72; PULSE 96; RESP 16; TEMP 36.6; O2SAT 99
[2024-12-16 07:00] VITALS: BMI 40.5
[2024-12-16 08:00] VITALS: BP 138/93; PULSE 85; RESP 18; TEMP 36.2; O2SAT 98
[2024-12-16] MEDS: Fluticasone/Vilanterol 100/25 BLST.W.DEV 1 PUFF INHALE (08:19)
[2024-12-16] MEDS: Tiotropium Bromide 2.5 mcg 1 PUFF/2.5 MCG MIST.INHAL 2 PUFF INHALE (08:19)
[2024-12-16] MEDS: OLANZapine ODT 10 MG TAB.RAPDIS TRANSLINGU ×2 (08:20→21:21)
--- NOTE | 2024-12-16 09:10 | HO.PSYCHPN ---
Subjective Subjective Date of Service: 12/16/24 Reason For Visit: Schizoaffective disorder, bipolar type Subjective Notes: Conditional Voluntary Interim History: Patient notes that she is feeling good. She is not well last night. She reports mild anxiety. Denies depression. Denies SI/HI/AH/VH. Medication Compliance: Yes Side effects from medications: No Attending Groups: Intermittent Review of Systems Acute medical concerns: No Mental Status Exam Mental Status Exam Narrative: Appearance: Casually dressed, adequate hygiene Behavior: Calm and cooperative throughout the interview. Eye contact is appropriate, and there are no signs of psychomotor agitation or retardation Speech: Normal volume and prosody Thought process logical and goal-directed Thought content: Future oriented no self-harming thoughts Mood: anxious Affect: Blunted SI: Denies HI: Denies VH/AH: Denies Delusions: None Insight/judgment: Fair insight and judgment Memory/cog: Alert, oriented x 4. grossly intact to conversational testing Diagnostics Vital Signs (24Hr): Vital Signs - 24 hr 12/15/24 20:00 12/16/24 08:00 Temperature 97.8 F 97.1 F Pulse Rate 96 85 Respiratory Rate 16 18 Blood Pressure 123/72 138/93 H Pulse Oximetry 99 98 Oxygen Delivery Method Room Air Room Air BMI result Body Mass Index 37.7 Labs 12/09/24 04:38 12/10/24 08:02 Medications Medications Current Medications Acetaminophen (Acetaminophen 325 Mg Tablet) 650 mg PO Q6H PRN PRN Reason: Headache/Pain, Scale 1-10 Last Admin: 12/12/24 14:21 Dose: 650 mg Al Hydroxide/Mg Hydroxide (Magnesium Hydrox/Alum Hydrox 30 Ml Oral.Susp) 30 ml PO Q6H PRN PRN Reason: Heartburn/Nausea Albuterol Sulfate (Albuterol Sulfate 90 Mcg 8 Gm Inhaler) 2 puff INHALE RQ6H PRN PRN Reason: Wheezing Last Admin: 12/15/24 20:03 Dose: 2 puff Atorvastatin Calcium (Atorvastatin Calcium 10 Mg Tablet) 10 mg PO BEDTIME NATALIA Last Admin: 12/15/24 20:01 Dose: 10 mg Cyclobenzaprine HCl (Cyclobenzaprine Hcl 10 Mg Tablet) 10 mg PO BID PRN PRN Reason: Muscle Spasm Last Admin: 12/16/24 08:38 Dose: 10 mg Diphenhydramine HCl (Diphenhydramine Hcl 25 Mg Capsule) 50 mg PO BID PRN PRN Reason: Anxiety Divalproex Sodium (Divalproex Sodium Er 500 Mg Tab.Er.24h) 1,000 mg PO BEDTIME [facility] Last Admin: 12/15/24 20:01 Dose: 1,000 mg Fluticasone Propionate (Fluticasone Propionate Nasal 16 Gm [place]) 1 spray NOSTRIL-B DAILY [facility] Last Admin: 12/16/24 08:19 Dose: 1 spray Fluticasone/Vilanterol (Fluticasone/Vilanterol 100/25 Blst.W.Dev) [facility] Last Admin: 12/16/24 08:19 Dose: 1 puff Haloperidol (Haloperidol 5 Mg Tablet) 7.5 mg PO BID [facility] Last Admin: 12/16/24 08:20 Dose: 7.5 mg Hydroxyzine HCl (Hydroxyzine Hcl 25 Mg Tablet) 25 mg PO Q6H PRN PRN Reason: mild anxiety Last Admin: 12/11/24 16:18 Dose: 25 mg Loratadine (Loratadine 10 Mg Tablet) 10 mg PO DAILY PRN PRN Reason: allergy symptoms Last Admin: 12/14/24 08:12 Dose: 10 mg Magnesium Hydroxide (Milk Of Magnesia 30 Ml Oral.Susp) 30 ml PO DAILY PRN PRN Reason: Constipation Meclizine HCl (Meclizine Hcl 12.5 Mg Tablet) 12.5 mg PO Q8H PRN PRN Reason: dizziness Last Admin: 12/16/24 08:38 Dose: 12.5 mg Montelukast Sodium (Montelukast Sodium 10 Mg Tablet) 10 mg PO DAILY [facility] Last Admin: 12/16/24 08:21 Dose: 10 mg Nicotine Polacrilex (Nicotine Polacrilex 2 Mg Gum) 4 mg BUCCAL Q2H PRN PRN Reason: Nicotine Cravings Olanzapine (Olanzapine Odt 10 Mg Tab.Rapdis) 10 mg TRANSLINGU BID [facility] Last Admin: 12/16/24 08:20 Dose: 10 mg Tiotropium [place] (Tiotropium [place] 2.5 Mcg 1 Puff/2.5 Mcg Mist.Inhal) 2 puff INHALE RDAILY [facility] Last Admin: 12/16/24 08:19 Dose: 2 puff Trazodone HCl (Trazodone Hcl 50 Mg Tablet) 50 mg PO BEDTIME MRX1 PRN PRN Reason: Insomnia Last Admin: 12/12/24 22:10 Dose: 50 mg Allergies Allergies Allergy/AdvReac Type Severity Reaction Status Date / Time animal dander (PET DANDER) Allergy Unknown Itching Verified 12/09/24 03:30 bee pollen (BEE STINGS) Allergy Unknown Swelling Verified 12/09/24 03:30 house dust Allergy Unknown Unknown Verified 12/09/24 03:30 shellfish derived (SHELLFISH Allergy Unknown Swelling Verified 12/09/24 03:30 DERIVED) Seasonal Allergies Allergy Itching Verified 12/09/24 03:30 Assessment & Plan Assessment & Plan (1) PTSD (post-traumatic stress disorder): Status: Acute Code(s): F43.10 - Post-traumatic stress disorder, unspecified (2) Schizoaffective disorder: Qualifiers: Schizoaffective disorder type: unspecified Qualified Code(s): F25.9 - Schizoaffective disorder, unspecified Status: Acute Code(s): F25.9 - Schizoaffective disorder, unspecified (3) Alcohol use: Status: Acute Code(s): F10.90 - Alcohol use, unspecified, uncomplicated Plan HPI: Patient is 39 year old currently single [place]ian speaking female who with history of autism, schizoaffective, bipolar type who has not had stable housing for many months. She is well known to the [facility] and psychiatric units. She was BIBA complaining of SI, homelessness. She states I am not feeling like myself and want to harm myself. CC feeling so well. I am homeless. I do not feel like myself past couple of weeks. I do not have people to help me in community . Patient explained problems that she needs help with : Housing, SSI. ID, and certification. Reassure patient that, we can not help her with those concerns as the inpatient level of care. Reports passive SI with thoughts of taking pills but she knows that she is can not do it here, denies SIB, denies HI, denies AVH. However reports sometimes he has she sees people, images, and sometimes hearing bad thoughts to harm myself . Reports history of suicidal thoughts, up to 6 suicide attempts via popping pills, drinking or using cocaine. Mood is bad, depressed, anxious . She is tearful, scared being on the street . Reports that she slept a lot , not having enough food as she does not have money to for food. Goal is t to go to respite or to the long term after discharge. Reports consistently taking medication. Formulation/clinical reasoning: Increase in depression, increase in sleep, tearful, hopeless. Usually patient appeared to be happy, but this time he she is tearful and depressed. History of schizoaffective bipolar type, history of homeless, history of not compliant with medications, on not follow-up with outpatient providers. Reports that she was not referred to any outpatient services, currently has passive suicidal thoughts. History of AVH. Given the above information, patient will be benefit in restrictive environment her safety, medication management to target depression symptoms, refer patient to outpatient psychiatric services as aftercare. Hospital course: 12/09/24: Will have the attending taking her home medications. Need clarification. Some orders was held on admission. 12/10: Regime review with pt and re-established. Assist pt in connecting to community resources to help with housing Collateral contact Med adjustments as needed Pt has made a call to the [facility] to discuss sober living. 12/11: continue current management and treatment plan. 12/12: continue current management and treatment plan. 12/13: Continue tx and assist pt in moving to her next step in residential treatment. 12/15: Continue current treatment regimen. 12/16: Continue current treatment regimen. Plan Patient on 15 minute checks for safety. Admitted to [facility]. CV. Work with treatment team to do collateral and possible for long term/respite referral. Patient educated on: therapeutic strategies Reason for continued inpatient stay Substantial Risk for: rapid decompensation Time Spent With Patient Time: Total time managing care of this patient today ____ minutes.
[2024-12-16 19:57] VITALS: BP 141/90; PULSE 97; RESP 16; TEMP 36.6; O2SAT 98
[2024-12-17 07:44] VITALS: BP 104/66; PULSE 89; RESP 18; TEMP 36; O2SAT 98
[2024-12-17] MEDS: Tiotropium Bromide 2.5 mcg 1 PUFF/2.5 MCG MIST.INHAL 2 PUFF INHALE (08:41)
[2024-12-17] MEDS: Fluticasone/Vilanterol 100/25 BLST.W.DEV 1 PUFF INHALE (08:41)
[2024-12-17] MEDS: OLANZapine ODT 10 MG TAB.RAPDIS TRANSLINGU ×2 (08:42→20:35)
--- NOTE | 2024-12-17 09:52 | HO.PSYCHPN ---
Subjective Subjective Date of Service: 12/17/24 Reason For Visit: Schizoaffective disorder, bipolar type Subjective Notes: Conditional Voluntary Healthcare Proxy: No Guardianship: No Medical Problems Affecting Mental Status: No Interim History: Samaria completed a screening interview with Cristy today she reports. She believes it went well and states she was told to call weekly for availability. Today, she discussed history of her perceptual alterations. She recalls voices/visions/shadows starting at about age 8. We discussed neuro testing and she is in agreement. We will order this next week. Reports sleeping well. Discussed feeling some discouragement with the length of the process for being accepted into programs. Education provided regarding this not being due to anything she was presenting but of limited resources. Review of medications, pt reports she is not feeling overmedicated and believes regime to be helpful. Medication Compliance: Yes Side effects from medications: No Attending Groups: Intermittent Review of Systems Acute medical concerns: No Medical Review of Systems: unchanged Review of Systems Review of Systems Denies Mental Status Exam Mental Status Exam Patient Appearance: Appropriate Patient Orientation: Person, Place, Time and Situation Level of Consciousness: Alert Patient Behavior: Appropriate, Talkative, Cooperative and Good Eye Contact Mood Description: Constricted Affect Description: Constricted Patient Cognition Impaired: No Ability to Follow Directions: Good Speech Pattern: Spontaneous Speech Memory Description: Intact Hallucinations: None Delusions: Not Present Thought Process: Intact and Goal Oriented Thought Content: positive for Intact and positive for Goal Oriented Depressive Symptoms: Thoughts of /Suicide (denies) Judgement: Good Diagnostics Vital Signs (24Hr): Vital Signs - 24 hr 12/16/24 19:57 12/17/24 07:44 Temperature 97.8 F 96.8 F Pulse Rate 97 89 Respiratory Rate 16 18 Blood Pressure 141/90 H 104/66 Pulse Oximetry 98 98 Oxygen Delivery Method Room Air Room Air BMI result Body Mass Index 40.5 Labs 12/09/24 04:38 12/10/24 08:02 Medications Medications Current Medications Acetaminophen (Acetaminophen 325 Mg Tablet) 650 mg PO Q6H PRN PRN Reason: Headache/Pain, Scale 1-10 Last Admin: 12/12/24 14:21 Dose: 650 mg Al Hydroxide/Mg Hydroxide (Magnesium Hydrox/Alum Hydrox 30 Ml Oral.Susp) 30 ml PO Q6H PRN PRN Reason: Heartburn/Nausea Albuterol Sulfate (Albuterol Sulfate 90 Mcg 8 Gm Inhaler) 2 puff INHALE RQ6H PRN PRN Reason: Wheezing Last Admin: 12/15/24 20:03 Dose: 2 puff Atorvastatin Calcium (Atorvastatin Calcium 10 Mg Tablet) 10 mg PO BEDTIME [facility] Last Admin: 12/16/24 21:21 Dose: 10 mg Cyclobenzaprine HCl (Cyclobenzaprine Hcl 10 Mg Tablet) 10 mg PO BID PRN PRN Reason: Muscle Spasm Last Admin: 12/17/24 09:10 Dose: 10 mg Diphenhydramine HCl (Diphenhydramine Hcl 25 Mg Capsule) 50 mg PO BID PRN PRN Reason: Anxiety Divalproex Sodium (Divalproex Sodium Er 500 Mg Tab.Er.24h) 1,000 mg PO BEDTIME [facility] Last Admin: 12/16/24 21:22 Dose: 1,000 mg Fluticasone Propionate (Fluticasone Propionate Nasal 16 Gm [place]) 1 spray NOSTRIL-B DAILY [facility] Last Admin: 12/17/24 08:41 Dose: 1 spray Fluticasone/Vilanterol (Fluticasone/Vilanterol 100/25 Blst.W.Dev) 1 puff INHALE RDAILY [facility] Last Admin: 12/17/24 08:41 Dose: 1 puff Haloperidol (Haloperidol 5 Mg Tablet) 7.5 mg PO BID [facility] Last Admin: 12/17/24 08:42 Dose: 7.5 mg Hydroxyzine HCl (Hydroxyzine Hcl 25 Mg Tablet) 25 mg PO Q6H PRN PRN Reason: mild anxiety Last Admin: 12/11/24 16:18 Dose: 25 mg Loratadine (Loratadine 10 Mg Tablet) 10 mg PO DAILY PRN PRN Reason: allergy symptoms Last Admin: 12/14/24 08:12 Dose: 10 mg Magnesium Hydroxide (Milk Of Magnesia 30 Ml Oral.Susp) 30 ml PO DAILY PRN PRN Reason: Constipation Meclizine HCl (Meclizine Hcl 12.5 Mg Tablet) 12.5 mg PO Q8H PRN PRN Reason: dizziness Last Admin: 12/17/24 09:11 Dose: 12.5 mg Montelukast Sodium (Montelukast Sodium 10 Mg Tablet) 10 mg PO DAILY [facility] Last Admin: 12/17/24 08:42 Dose: 10 mg Nicotine Polacrilex (Nicotine Polacrilex 2 Mg Gum) 4 mg BUCCAL Q2H PRN PRN Reason: Nicotine Cravings Olanzapine (Olanzapine Odt 10 Mg Tab.Rapdis) 10 mg TRANSLINGU BID [facility] Last Admin: 12/17/24 08:42 Dose: 10 mg Tiotropium [place] (Tiotropium [place] 2.5 Mcg 1 Puff/2.5 Mcg Mist.Inhal) 2 puff INHALE RDAILY [facility] Last Admin: 12/17/24 08:41 Dose: 2 puff Trazodone HCl (Trazodone Hcl 50 Mg Tablet) 50 mg PO BEDTIME MRX1 PRN PRN Reason: Insomnia Last Admin: 12/16/24 21:21 Dose: 50 mg Allergies Allergies Allergy/AdvReac Type Severity Reaction Status Date / Time animal dander (PET DANDER) Allergy Unknown Itching Verified 12/09/24 03:30 bee pollen (BEE STINGS) Allergy Unknown Swelling Verified 12/09/24 03:30 house dust Allergy Unknown Unknown Verified 12/09/24 03:30 shellfish derived (SHELLFISH Allergy Unknown Swelling Verified 12/09/24 03:30 DERIVED) Seasonal Allergies Allergy Itching Verified 12/09/24 03:30 Assessment & Plan Assessment & Plan (1) PTSD (post-traumatic stress disorder): Status: Acute Code(s): F43.10 - Post-traumatic stress disorder, unspecified (2) Schizoaffective disorder: Qualifiers: Schizoaffective disorder type: unspecified Qualified Code(s): F25.9 - Schizoaffective disorder, unspecified Status: Acute Code(s): F25.9 - Schizoaffective disorder, unspecified (3) Alcohol use: Status: Acute Code(s): F10.90 - Alcohol use, unspecified, uncomplicated Plan HPI: Patient is 39 year old currently single [place] speaking female who with history of autism, schizoaffective, bipolar type who has not had stable housing for many months. She is well known to the [facility] ED and psychiatric units. She was BIBA complaining of SI, homelessness. She states I am not feeling like myself and want to harm myself. CC feeling so well. I am homeless. I do not feel like myself past couple of weeks. I do not have people to help me in community . Patient explained problems that she needs help with : Housing, SSI. ID, and certification. Reassure patient that, we can not help her with those concerns as the inpatient level of care. Reports passive SI with thoughts of taking pills but she knows that she is can not do it here, denies SIB, denies HI, denies AVH. However reports sometimes he has she sees people, images, and sometimes hearing bad thoughts to harm myself . Reports history of suicidal thoughts, up to 6 suicide attempts via popping pills, drinking or using cocaine. Mood is bad, depressed, anxious . She is tearful, scared being on the street . Reports that she slept a lot , not having enough food as she does not have money to for food. Goal is t to go to respite or to the skilled nursing after discharge. Reports consistently taking medication. Formulation/clinical reasoning: Increase in depression, increase in sleep, tearful, hopeless. Usually patient appeared to be happy, but this time he she is tearful and depressed. History of schizoaffective bipolar type, history of homeless, history of not compliant with medications, on not follow-up with outpatient providers. Reports that she was not referred to any outpatient services, currently has passive suicidal thoughts. History of AVH. Given the above information, patient will be benefit in restrictive environment her safety, medication management to target depression symptoms, refer patient to outpatient psychiatric services as aftercare. Hospital course: 12/09/24: Will have the attending taking her home medications. Need clarification. Some orders was held on admission. 12/10: Regime review with pt and re-established. Assist pt in connecting to community resources to help with housing Collateral contact Med adjustments as needed Pt has made a call to the [facility] to discuss sober living. 12/11: continue current management and treatment plan. 12/12: continue current management and treatment plan. 12/13: Continue tx and assist pt in moving to her next step in residential treatment. 12/15: Continue current treatment regimen. 12/16: Continue current treatment regimen. 12/17: Will discuss EEG/MRI next week. Tentative DC 12/22. [facility] will be making a decision about accepting pt for services on 12/21. Continue current treatment regime Plan Patient on 15 minute checks for safety. Admitted to . CV. Work with treatment team to do collateral and possible for skilled nursing/respite referral. Reason for continued inpatient stay Substantial Risk for: rapid decompensation Time Spent With Patient Time: Total time managing care of this patient today ____ minutes.
[2024-12-17] MEDS: Albuterol Sulfate 90 MCG 8 GM INHALER 2 PUFF INHALE (16:28)
[2024-12-17 19:44] VITALS: BP 129/65; PULSE 89; RESP 15; TEMP 36.6; O2SAT 98
[2024-12-18 08:00] VITALS: BP 127/81; PULSE 91; RESP 18; TEMP 36.6; O2SAT 98
[2024-12-18] MEDS: OLANZapine ODT 10 MG TAB.RAPDIS TRANSLINGU ×2 (08:57→20:35)
[2024-12-18] MEDS: Fluticasone/Vilanterol 100/25 BLST.W.DEV 1 PUFF INHALE (08:59)
[2024-12-18] MEDS: Tiotropium Bromide 2.5 mcg 1 PUFF/2.5 MCG MIST.INHAL 2 PUFF INHALE (08:59)
--- NOTE | 2024-12-18 13:25 | P.PNPSI_ITS ---
Subjective Subjective Date of Service: 12/18/24 Reason For Visit: Schizoaffective disorder, bipolar type Interim History: Met with patient; discussed with team Pleasant on approach, denies any psychiatric symptoms, denies any auditory hallucinations; staff reports has good mood, stable and in good behavioral control Mental Status Exam Mental Status Exam Patient Appearance: Appropriate Patient Orientation: Person, Place, Time and Situation Level of Consciousness: Alert Patient Behavior: Appropriate, Talkative, Cooperative and Good Eye Contact Mood Description: Calm Affect Description: Calm Patient Cognition Impaired: No Ability to Follow Directions: Good Speech Pattern: Spontaneous Speech Memory Description: Intact Hallucinations: None Delusions: Not Present Thought Process: Intact and Goal Oriented Thought Content: positive for Intact and positive for Goal Oriented Depressive Symptoms: Thoughts of /Suicide (denies) Judgement: Good Diagnostics Vital Signs (24Hr): Vital Signs - 24 hr 12/17/24 19:44 12/18/24 08:00 Temperature 98 F 97.9 F Pulse Rate 89 91 Respiratory Rate 15 18 Blood Pressure 129/65 127/81 Pulse Oximetry 98 98 Oxygen Delivery Method Room Air BMI result Body Mass Index 40.5 Labs 12/09/24 04:38 12/10/24 08:02 Medications Medications Current Medications Acetaminophen (Acetaminophen 325 Mg Tablet) 650 mg PO Q6H PRN PRN Reason: Headache/Pain, Scale 1-10 Last Admin: 12/12/24 14:21 Dose: 650 mg Al Hydroxide/Mg Hydroxide (Magnesium Hydrox/Alum Hydrox 30 Ml Oral.Susp) 30 ml PO Q6H PRN PRN Reason: Heartburn/Nausea Albuterol Sulfate (Albuterol Sulfate 90 Mcg 8 Gm Inhaler) 2 puff INHALE RQ6H PRN PRN Reason: Wheezing Last Admin: 12/17/24 16:28 Dose: 2 puff Atorvastatin Calcium (Atorvastatin Calcium 10 Mg Tablet) 10 mg PO BEDTIME [facility] Last Admin: 12/17/24 20:35 Dose: 10 mg Cyclobenzaprine HCl (Cyclobenzaprine Hcl 10 Mg Tablet) 10 mg PO BID PRN PRN Reason: Muscle Spasm Last Admin: 12/18/24 08:57 Dose: 10 mg Diphenhydramine HCl (Diphenhydramine Hcl 25 Mg Capsule) 50 mg PO BID PRN PRN Reason: Anxiety Divalproex Sodium (Divalproex Sodium Er 500 Mg Tab.Er.24h) 1,000 mg PO BEDTIME [facility] Last Admin: 12/17/24 20:35 Dose: 1,000 mg Fluticasone Propionate (Fluticasone Propionate Nasal 16 Gm [place]) 1 spray NOSTRIL-B DAILY [facility] Last Admin: 12/18/24 08:58 Dose: 1 spray Fluticasone/Vilanterol (Fluticasone/Vilanterol 100/25 Blst.W.Dev) 1 puff INHALE RDAILY [facility] Last Admin: 12/18/24 08:59 Dose: 1 puff Haloperidol (Haloperidol 5 Mg Tablet) 7.5 mg PO BID [facility] Last Admin: 12/18/24 08:57 Dose: 7.5 mg Hydroxyzine HCl (Hydroxyzine Hcl 25 Mg Tablet) 25 mg PO Q6H PRN PRN Reason: mild anxiety Last Admin: 12/11/24 16:18 Dose: 25 mg Loratadine (Loratadine 10 Mg Tablet) 10 mg PO DAILY PRN PRN Reason: allergy symptoms Last Admin: 12/14/24 08:12 Dose: 10 mg Magnesium Hydroxide (Milk Of Magnesia 30 Ml Oral.Susp) 30 ml PO DAILY PRN PRN Reason: Constipation Meclizine HCl (Meclizine Hcl 12.5 Mg Tablet) 12.5 mg PO Q8H PRN PRN Reason: dizziness Last Admin: 12/18/24 08:57 Dose: 12.5 mg Montelukast Sodium (Montelukast Sodium 10 Mg Tablet) 10 mg PO DAILY [facility] Last Admin: 12/18/24 08:58 Dose: 10 mg Nicotine Polacrilex (Nicotine Polacrilex 2 Mg Gum) 4 mg BUCCAL Q2H PRN PRN Reason: Nicotine Cravings Olanzapine (Olanzapine Odt 10 Mg Tab.Rapdis) 10 mg TRANSLINGU BID [facility] Last Admin: 12/18/24 08:57 Dose: 10 mg Tiotropium [place] (Tiotropium [place] 2.5 Mcg 1 Puff/2.5 Mcg Mist.Inhal) 2 puff INHALE RDAILY [facility] Last Admin: 12/18/24 08:59 Dose: 2 puff Trazodone HCl (Trazodone Hcl 50 Mg Tablet) 50 mg PO BEDTIME MRX1 PRN PRN Reason: Insomnia Last Admin: 12/17/24 20:36 Dose: 50 mg Allergies Allergies Allergy/AdvReac Type Severity Reaction Status Date / Time animal dander (PET DANDER) Allergy Unknown Itching Verified 12/09/24 03:30 bee pollen (BEE STINGS) Allergy Unknown Swelling Verified 12/09/24 03:30 house dust Allergy Unknown Unknown Verified 12/09/24 03:30 shellfish derived (SHELLFISH Allergy Unknown Swelling Verified 12/09/24 03:30 DERIVED) Seasonal Allergies Allergy Itching Verified 12/09/24 03:30 Assessment & Plan Assessment & Plan (1) PTSD (post-traumatic stress disorder): Status: Acute Code(s): F43.10 - Post-traumatic stress disorder, unspecified (2) Schizoaffective disorder: Qualifiers: Schizoaffective disorder type: unspecified Qualified Code(s): F25.9 - Schizoaffective disorder, unspecified Status: Acute Code(s): F25.9 - Schizoaffective disorder, unspecified (3) Alcohol use: Status: Acute Code(s): F10.90 - Alcohol use, unspecified, uncomplicated Plan HPI: Patient is 39 year old currently single [place] Citizen speaking female who with history of autism, schizoaffective, bipolar type who has not had stable housing for many months. She is well known to the [facility] ED and psychiatric units. She was BIBA complaining of SI, homelessness. She states I am not feeling like myself and want to harm myself. CC feeling so well. I am homeless. I do not feel like myself past couple of weeks. I do not have people to help me in community . Patient explained problems that she needs help with : Housing, SSI. ID, and certification. Reassure patient that, we can not help her with those concerns as the inpatient level of care. Reports passive SI with thoughts of taking pills but she knows that she is can not do it here, denies SIB, denies HI, denies AVH. However reports sometimes he has she sees people, images, and sometimes hearing bad thoughts to harm myself . Reports history of suicidal thoughts, up to 6 suicide attempts via popping pills, drinking or using cocaine. Mood is bad, depressed, anxious . She is tearful, scared being on the street . Reports that she slept a lot , not having enough food as she does not have money to for food. Goal is t to go to respite or to the [facility] after discharge. Reports consistently taking medication. Formulation/clinical reasoning: Increase in depression, increase in sleep, tearful, hopeless. Usually patient appeared to be happy, but this time he she is tearful and depressed. History of schizoaffective bipolar type, history of homeless, history of not compliant with medications, on not follow-up with outpatient providers. Reports that she was not referred to any outpatient services, currently has passive suicidal thoughts. History of AVH. Given the above information, patient will be benefit in restrictive environment her safety, medication management to target depression symptoms, refer patient to outpatient psychiatric services as aftercare. Hospital course: 12/09/24: Will have the attending taking her home medications. Need clarification. Some orders was held on admission. 12/10: Regime review with pt and re-established. Assist pt in connecting to community resources to help with housing Collateral contact Med adjustments as needed Pt has made a call to the [facility] to discuss sober living. 12/11: continue current management and treatment plan. 12/12: continue current management and treatment plan. 12/13: Continue tx and assist pt in moving to her next step in residential treatment. 12/15: Continue current treatment regimen. 12/16: Continue current treatment regimen. 12/17: Will discuss EEG/MRI next week. Tentative DC 12/22. [facility] will be making a decision about accepting pt for services on 12/21. Continue current treatment regime 12/18 Pleasant on approach, denies any psychiatric symptoms, denies any auditory hallucinations; staff reports has good mood, stable and in good behavioral control Plan Patient on 15 minute checks for safety. Admitted to . CV. Work with treatment team to do collateral and possible for [facility]/respite referral. Patient educated on: diagnosis Informed Consent: understands Reason for continued inpatient stay Substantial Risk for: med/psych decompensation Time Spent With Patient Time: Total time managing care of this patient today ____ minutes.
[2024-12-18] MEDS: Albuterol Sulfate 90 MCG 8 GM INHALER 2 PUFF INHALE (15:56)
[2024-12-18 19:56] VITALS: BP 147/84; PULSE 115; RESP 15; TEMP 36.4; O2SAT 97
[2024-12-19 08:00] VITALS: BP 136/84; PULSE 89; RESP 18; TEMP 36.9; O2SAT 98
[2024-12-19] MEDS: OLANZapine ODT 10 MG TAB.RAPDIS TRANSLINGU ×2 (08:46→20:27)
[2024-12-19] MEDS: Fluticasone/Vilanterol 100/25 BLST.W.DEV 1 PUFF INHALE (08:47)
[2024-12-19] MEDS: Tiotropium Bromide 2.5 mcg 1 PUFF/2.5 MCG MIST.INHAL 2 PUFF INHALE (08:47)
[2024-12-19] MEDS: Albuterol Sulfate 90 MCG 8 GM INHALER 2 PUFF INHALE (15:31)
--- NOTE | 2024-12-19 18:12 | P.PNPSI_ITS ---
Subjective Subjective Date of Service: 12/19/24 Reason For Visit: Schizoaffective disorder, bipolar type Interim History: met with patient; discussed with team some brief SI and AH last night that resolved on it's own; none today and she's feeling fine Mental Status Exam Mental Status Exam Patient Appearance: Appropriate Patient Orientation: Person, Place, Time and Situation Level of Consciousness: Alert Patient Behavior: Appropriate, Talkative, Cooperative and Good Eye Contact Mood Description: Calm Affect Description: Calm Patient Cognition Impaired: No Ability to Follow Directions: Good Speech Pattern: Spontaneous Speech Memory Description: Intact Hallucinations: None Delusions: Not Present Thought Process: Intact and Goal Oriented Thought Content: positive for Intact (denies SI/HI ) and positive for Goal Oriented Depressive Symptoms: Thoughts of /Suicide (denies) Judgement: Good Diagnostics Vital Signs (24Hr): Vital Signs - 24 hr 12/18/24 19:56 12/19/24 08:00 Temperature 97.6 F 98.5 F Pulse Rate 115 H 89 Respiratory Rate 15 18 Blood Pressure 147/84 H 136/84 Pulse Oximetry 97 98 Oxygen Delivery Method Room Air BMI result Body Mass Index 40.5 Labs 12/09/24 04:38 12/10/24 08:02 Medications Medications Current Medications Acetaminophen (Acetaminophen 325 Mg Tablet) 650 mg PO Q6H PRN PRN Reason: Headache/Pain, Scale 1-10 Last Admin: 12/12/24 14:21 Dose: 650 mg Al Hydroxide/Mg Hydroxide (Magnesium Hydrox/Alum Hydrox 30 Ml Oral.Susp) 30 ml PO Q6H PRN PRN Reason: Heartburn/Nausea Albuterol Sulfate (Albuterol Sulfate 90 Mcg 8 Gm Inhaler) 2 puff INHALE RQ6H PRN PRN Reason: Wheezing Last Admin: 12/19/24 15:31 Dose: 2 puff Atorvastatin Calcium (Atorvastatin Calcium 10 Mg Tablet) 10 mg PO BEDTIME [facility]AL[facility] Last Admin: 12/18/24 20:36 Dose: 10 mg Cyclobenzaprine HCl (Cyclobenzaprine Hcl 10 Mg Tablet) 10 mg PO BID PRN PRN Reason: Muscle Spasm Last Admin: 12/19/24 17:00 Dose: 10 mg Diphenhydramine HCl (Diphenhydramine Hcl 25 Mg Capsule) 50 mg PO BID PRN PRN Reason: Anxiety Divalproex Sodium (Divalproex Sodium Er 500 Mg Tab.Er.24h) 1,000 mg PO BEDTIME [facility] Last Admin: 12/18/24 20:35 Dose: 1,000 mg Fluticasone Propionate (Fluticasone Propionate Nasal 16 Gm [place]) 1 spray NOSTRIL-B DAILY [facility] Last Admin: 12/19/24 08:47 Dose: 1 spray Fluticasone/Vilanterol (Fluticasone/Vilanterol 100/25 Blst.W.Dev) 1 puff INHALE RDAILY [facility] Last Admin: 12/19/24 08:47 Dose: 1 puff Haloperidol (Haloperidol 5 Mg Tablet) 7.5 mg PO BID [facility] Last Admin: 12/19/24 08:45 Dose: 7.5 mg Hydroxyzine HCl (Hydroxyzine Hcl 25 Mg Tablet) 25 mg PO Q6H PRN PRN Reason: mild anxiety Last Admin: 12/11/24 16:18 Dose: 25 mg Loratadine (Loratadine 10 Mg Tablet) 10 mg PO DAILY PRN PRN Reason: allergy symptoms Last Admin: 12/14/24 08:12 Dose: 10 mg Magnesium Hydroxide (Milk Of Magnesia 30 Ml Oral.Susp) 30 ml PO DAILY PRN PRN Reason: Constipation Meclizine HCl (Meclizine Hcl 12.5 Mg Tablet) 12.5 mg PO Q8H PRN PRN Reason: dizziness Last Admin: 12/19/24 08:46 Dose: 12.5 mg Montelukast Sodium (Montelukast Sodium 10 Mg Tablet) 10 mg PO DAILY [facility] Last Admin: 12/19/24 08:46 Dose: 10 mg Nicotine Polacrilex (Nicotine Polacrilex 2 Mg Gum) 4 mg BUCCAL Q2H PRN PRN Reason: Nicotine Cravings Olanzapine (Olanzapine Odt 10 Mg Tab.Rapdis) 10 mg TRANSLINGU BID [facility] Last Admin: 12/19/24 08:46 Dose: 10 mg Tiotropium [place] (Tiotropium [place] 2.5 Mcg 1 Puff/2.5 Mcg Mist.Inhal) 2 puff INHALE RDAILY [facility] Last Admin: 12/19/24 08:47 Dose: 2 puff Trazodone HCl (Trazodone Hcl 50 Mg Tablet) 50 mg PO BEDTIME MRX1 PRN PRN Reason: Insomnia Last Admin: 12/18/24 20:35 Dose: 50 mg Allergies Allergies Allergy/AdvReac Type Severity Reaction Status Date / Time animal dander (PET DANDER) Allergy Unknown Itching Verified 12/09/24 03:30 bee pollen (BEE STINGS) Allergy Unknown Swelling Verified 12/09/24 03:30 house dust Allergy Unknown Unknown Verified 12/09/24 03:30 shellfish derived (SHELLFISH Allergy Unknown Swelling Verified 12/09/24 03:30 DERIVED) Seasonal Allergies Allergy Itching Verified 12/09/24 03:30 Assessment & Plan Assessment & Plan (1) PTSD (post-traumatic stress disorder): Status: Acute Code(s): F43.10 - Post-traumatic stress disorder, unspecified (2) Schizoaffective disorder: Qualifiers: Schizoaffective disorder type: unspecified Qualified Code(s): F25.9 - Schizoaffective disorder, unspecified Status: Acute Code(s): F25.9 - Schizoaffective disorder, unspecified (3) Alcohol use: Status: Acute Code(s): F10.90 - Alcohol use, unspecified, uncomplicated Plan HPI: Patient is 39 year old currently single Armenian speaking female who with history of autism, schizoaffective, bipolar type who has not had stable housing for many months. She is well known to the [facility] ED and psychiatric units. She was BIBA complaining of SI, homelessness. She states I am not feeling like myself and want to harm myself. CC feeling so well. I am homeless. I do not feel like myself past couple of weeks. I do not have people to help me in community . Patient explained problems that she needs help with : Housing, SSI. ID, and certification. Reassure patient that, we can not help her with those concerns as the inpatient level of care. Reports passive SI with thoughts of taking pills but she knows that she is can not do it here, denies SIB, denies HI, denies AVH. However reports sometimes he has she sees people, images, and sometimes hearing bad thoughts to harm myself . Reports history of suicidal thoughts, up to 6 suicide attempts via popping pills, drinking or using cocaine. Mood is bad, depressed, anxious . She is tearful, scared being on the street . Reports that she slept a lot , not having enough food as she does not have money to for food. Goal is t to go to respite or to the assisted after discharge. Reports consistently taking medication. Formulation/clinical reasoning: Increase in depression, increase in sleep, tearful, hopeless. Usually patient appeared to be happy, but this time he she is tearful and depressed. History of schizoaffective bipolar type, history of homeless, history of not compliant with medications, on not follow-up with outpatient providers. Reports that she was not referred to any outpatient services, currently has passive suicidal thoughts. History of AVH. Given the above information, patient will be benefit in restrictive environment her safety, medication management to target depression symptoms, refer patient to outpatient psychiatric services as aftercare. Hospital course: 12/09/24: Will have the attending taking her home medications. Need clarification. Some orders was held on admission. 12/10: Regime review with pt and re-established. Assist pt in connecting to community resources to help with housing Collateral contact Med adjustments as needed Pt has made a call to the [facility] to discuss sober living. 12/11: continue current management and treatment plan. 12/12: continue current management and treatment plan. 12/13: Continue tx and assist pt in moving to her next step in residential treatment. 12/15: Continue current treatment regimen. 12/16: Continue current treatment regimen. 12/17: Will discuss EEG/MRI next week. Tentative DC 12/22. [facility] will be making a decision about accepting pt for services on 12/21. Continue current treatment regime 12/18 Pleasant on approach, denies any psychiatric symptoms, denies any auditory hallucinations; staff reports has good mood, stable and in good behavioral control 12/19 remains stable; CTP Plan Patient on 15 minute checks for safety. Admitted to [facility]. CV. Work with treatment team to do collateral and possible for assisted/respite referral. Patient educated on: diagnosis Informed Consent: understands Reason for continued inpatient stay Substantial Risk for: stable for discharge Time Spent With Patient Time: Total time managing care of this patient today ____ minutes.
[2024-12-19 19:54] VITALS: BP 120/75; PULSE 88; RESP 16; TEMP 36.7; O2SAT 98
--- NOTE | 2024-12-20 | EEG_ITS ---
Reason For EEG: Schizoaffective disorder / bipolar Medications: Acetaminophen, al hydroxide, atorvastatin calcium, cyclobenzaprine, diphenhydramine, divalproex sodium, fluticasone/vilanterol, haloperidol, trazadone, tiotropium bromide, olanzapine, montelukast sodium, meclizine, mom, loratadine History: H/O bipolar, schizoaffective disorder, PTSD, autism, depression and anxiety - admitted for brief SI which has resolved [employer] Comments: Photic stimulation: Completed Hyperventilation: performed - good effort Behavioral state: pleasant Handedness: Right State of consciousness: awake Skull defect: no Sedation: no This is a 16 channel EEG with an EKG lead. Background EEG rhythm is 10 hertz or faster low amplitude with no obvious asymmetry or paroxysmal tendency. Some eye opening closure and muscle artifacts are noted. Photic stimulation does not produce any significant driving. Hyperventilation is unremarkable. Cardiac lead does not reveal any significant abnormality. Impression: No significant abnormality noted on this EEG. MTDD
[2024-12-20 07:57] VITALS: BP 129/74; PULSE 90; TEMP 36.8; O2SAT 98
[2024-12-20] MEDS: Fluticasone/Vilanterol 100/25 BLST.W.DEV 1 PUFF INHALE (08:17)
[2024-12-20] MEDS: Tiotropium Bromide 2.5 mcg 1 PUFF/2.5 MCG MIST.INHAL 2 PUFF INHALE (08:18)
[2024-12-20] MEDS: OLANZapine ODT 10 MG TAB.RAPDIS TRANSLINGU ×2 (08:18→20:38)
--- NOTE | 2024-12-20 09:59 | HO.PSYCHPN ---
Subjective Subjective Date of Service: 12/20/24 Reason For Visit: Schizoaffective disorder, bipolar type Subjective Notes: Conditional Voluntary Healthcare Proxy: No Guardianship: No Medical Problems Affecting Mental Status: No Interim History: Pt talking more about her history- reports voices, visions, seizure like activity beginning at age 8 without known head trauma. Discussed eval-EEG, MRI, which she is in agreement with. Discussed her feeling apprehensive and anxious about not having a place to live. I know I cannot do it on the streets, it has never worked for me. Reviewed her progress in these past few admissions and potential [facility] acceptance which would increase resources. Willing to wait, accept help and planning for a safe discharge plan of care. Medication Compliance: Yes Side effects from medications: No Attending Groups: Intermittent Review of Systems Acute medical concerns: No Review of Systems Review of Systems Denies Mental Status Exam Mental Status Exam Patient Appearance: Appropriate Patient Orientation: Person, Place, Time and Situation Level of Consciousness: Alert Patient Behavior: Appropriate, Talkative, Cooperative and Good Eye Contact Mood Description: Calm Affect Description: Calm Patient Cognition Impaired: No Ability to Follow Directions: Good Speech Pattern: Spontaneous Speech Memory Description: Intact Hallucinations: None Delusions: Not Present Thought Process: Intact and Goal Oriented Thought Content: positive for Intact (denies SI/HI ) and positive for Goal Oriented Depressive Symptoms: Thoughts of /Suicide (denies) Judgement: Good Diagnostics Vital Signs (24Hr): Vital Signs - 24 hr 12/19/24 19:54 12/20/24 07:57 Temperature 98.1 F 98.2 F Pulse Rate 88 90 Respiratory Rate 16 Blood Pressure 120/75 129/74 Pulse Oximetry 98 98 Oxygen Delivery Method Room Air Room Air BMI result Body Mass Index 40.5 Labs 12/09/24 04:38 12/10/24 08:02 Medications Medications Current Medications Acetaminophen (Acetaminophen 325 Mg Tablet) 650 mg PO Q6H PRN PRN Reason: Headache/Pain, Scale 1-10 Last Admin: 12/12/24 14:21 Dose: 650 mg Al Hydroxide/Mg Hydroxide (Magnesium Hydrox/Alum Hydrox 30 Ml Oral.Susp) 30 ml PO Q6H PRN PRN Reason: Heartburn/Nausea Albuterol Sulfate (Albuterol Sulfate 90 Mcg 8 Gm Inhaler) 2 puff INHALE RQ6H PRN PRN Reason: Wheezing Last Admin: 12/19/24 15:31 Dose: 2 puff Atorvastatin Calcium (Atorvastatin Calcium 10 Mg Tablet) 10 mg PO BEDTIME [facility] Last Admin: 12/19/24 20:27 Dose: 10 mg Cyclobenzaprine HCl (Cyclobenzaprine Hcl 10 Mg Tablet) 10 mg PO BID PRN PRN Reason: Muscle Spasm Last Admin: 12/20/24 08:22 Dose: 10 mg Diphenhydramine HCl (Diphenhydramine Hcl 25 Mg Capsule) 50 mg PO BID PRN PRN Reason: Anxiety Divalproex Sodium (Divalproex Sodium Er 500 Mg Tab.Er.24h) 1,000 mg PO BEDTIME [facility] Last Admin: 12/19/24 20:25 Dose: 1,000 mg Fluticasone Propionate (Fluticasone Propionate Nasal 16 Gm [place]) 1 spray NOSTRIL-B DAILY [facility] Last Admin: 12/20/24 08:18 Dose: 1 spray Fluticasone/Vilanterol (Fluticasone/Vilanterol 100/25 Blst.W.Dev) 1 puff INHALE RDAILY [facility] Last Admin: 12/20/24 08:17 Dose: 1 puff Haloperidol (Haloperidol 5 Mg Tablet) 7.5 mg PO BID [facility] Last Admin: 12/20/24 08:18 Dose: 7.5 mg Hydroxyzine HCl (Hydroxyzine Hcl 25 Mg Tablet) 25 mg PO Q6H PRN PRN Reason: mild anxiety Last Admin: 12/11/24 16:18 Dose: 25 mg Loratadine (Loratadine 10 Mg Tablet) 10 mg PO DAILY PRN PRN Reason: allergy symptoms Last Admin: 12/14/24 08:12 Dose: 10 mg Magnesium Hydroxide (Milk Of Magnesia 30 Ml Oral.Susp) 30 ml PO DAILY PRN PRN Reason: Constipation Meclizine HCl (Meclizine Hcl 12.5 Mg Tablet) 12.5 mg PO Q8H PRN PRN Reason: dizziness Last Admin: 12/20/24 08:22 Dose: 12.5 mg Montelukast Sodium (Montelukast Sodium 10 Mg Tablet) 10 mg PO DAILY [facility] Last Admin: 12/20/24 08:18 Dose: 10 mg Nicotine Polacrilex (Nicotine Polacrilex 2 Mg Gum) 4 mg BUCCAL Q2H PRN PRN Reason: Nicotine Cravings Olanzapine (Olanzapine Odt 10 Mg Tab.Rapdis) 10 mg TRANSLINGU BID [facility] Last Admin: 12/20/24 08:18 Dose: 10 mg Tiotropium [place] (Tiotropium [place] 2.5 Mcg 1 Puff/2.5 Mcg Mist.Inhal) 2 puff INHALE RDAILY [facility] Last Admin: 12/20/24 08:18 Dose: 2 puff Trazodone HCl (Trazodone Hcl 50 Mg Tablet) 50 mg PO BEDTIME MRX1 PRN PRN Reason: Insomnia Last Admin: 12/19/24 20:27 Dose: 50 mg Allergies Allergies Allergy/AdvReac Type Severity Reaction Status Date / Time animal dander (PET DANDER) Allergy Unknown Itching Verified 12/09/24 03:30 bee pollen (BEE STINGS) Allergy Unknown Swelling Verified 12/09/24 03:30 house dust Allergy Unknown Unknown Verified 12/09/24 03:30 shellfish derived (SHELLFISH Allergy Unknown Swelling Verified 12/09/24 03:30 DERIVED) Seasonal Allergies Allergy Itching Verified 12/09/24 03:30 Assessment & Plan Assessment & Plan (1) PTSD (post-traumatic stress disorder): Status: Acute Code(s): F43.10 - Post-traumatic stress disorder, unspecified (2) Schizoaffective disorder: Qualifiers: Schizoaffective disorder type: unspecified Qualified Code(s): F25.9 - Schizoaffective disorder, unspecified Status: Acute Code(s): F25.9 - Schizoaffective disorder, unspecified (3) Alcohol use: Status: Acute Code(s): F10.90 - Alcohol use, unspecified, uncomplicated Plan HPI: Patient is 39 year old currently single Vietnamese speaking female who with history of autism, schizoaffective, bipolar type who has not had stable housing for many months. She is well known to the [facility] ED and psychiatric units. She was BIBA complaining of SI, homelessness. She states I am not feeling like myself and want to harm myself. CC feeling so well. I am homeless. I do not feel like myself past couple of weeks. I do not have people to help me in community . Patient explained problems that she needs help with : Housing, SSI. ID, and certification. Reassure patient that, we can not help her with those concerns as the inpatient level of care. Reports passive SI with thoughts of taking pills but she knows that she is can not do it here, denies SIB, denies HI, denies AVH. However reports sometimes he has she sees people, images, and sometimes hearing bad thoughts to harm myself . Reports history of suicidal thoughts, up to 6 suicide attempts via popping pills, drinking or using cocaine. Mood is bad, depressed, anxious . She is tearful, scared being on the street . Reports that she slept a lot , not having enough food as she does not have money to for food. Goal is t to go to respite or to the assisted after discharge. Reports consistently taking medication. Formulation/clinical reasoning: Increase in depression, increase in sleep, tearful, hopeless. Usually patient appeared to be happy, but this time he she is tearful and depressed. History of schizoaffective bipolar type, history of homeless, history of not compliant with medications, on not follow-up with outpatient providers. Reports that she was not referred to any outpatient services, currently has passive suicidal thoughts. History of AVH. Given the above information, patient will be benefit in restrictive environment her safety, medication management to target depression symptoms, refer patient to outpatient psychiatric services as aftercare. Hospital course: 12/09/24: Will have the attending taking her home medications. Need clarification. Some orders was held on admission. 12/10: Regime review with pt and re-established. Assist pt in connecting to community resources to help with housing Collateral contact Med adjustments as needed Pt has made a call to the [facility] to discuss sober living. 12/11: continue current management and treatment plan. 12/12: continue current management and treatment plan. 12/13: Continue tx and assist pt in moving to her next step in residential treatment. 12/15: Continue current treatment regimen. 12/16: Continue current treatment regimen. 12/17: Will discuss EEG/MRI next week. Tentative DC 12/22. [facility] will be making a decision about accepting pt for services on 12/21. Continue current treatment regime 12/18 Pleasant on approach, denies any psychiatric symptoms, denies any auditory hallucinations; staff reports has good mood, stable and in good behavioral control 12/19 remains stable; CTP 12/20: continue tx. By history, when pt is on the street, she decompensates quickly, is unable to coordinate taking her medicines, ADL's and sleeping/eating needs. She is unsafe in these conditions and at risk. This has caused several long hospitalizations. Currently, she is working with the team on finding a safe discharge plan to avoid re-hospitalization and has been able to provide history to help do a more comprehensive assessment of her needs to improve her care and follow up. Plan Patient on 15 minute checks for safety. Admitted to . CV. Work with treatment team to do collateral and possible for assisted/respite referral. Reason for continued inpatient stay Substantial Risk for: rapid decompensation Time Spent With Patient Time: Total time managing care of this patient today ____ minutes.
[2024-12-20] MEDS: Albuterol Sulfate 90 MCG 8 GM INHALER 2 PUFF INHALE (14:23)
[2024-12-20 19:36] VITALS: BP 118/66; PULSE 98; RESP 16; TEMP 36.7; O2SAT 98
[2024-12-21 08:21] VITALS: BP 111/56; PULSE 80; TEMP 36.6; O2SAT 96
[2024-12-21] MEDS: Fluticasone/Vilanterol 100/25 BLST.W.DEV 1 PUFF INHALE (08:30)
[2024-12-21] MEDS: Tiotropium Bromide 2.5 mcg 1 PUFF/2.5 MCG MIST.INHAL 2 PUFF INHALE (08:30)
[2024-12-21] MEDS: OLANZapine ODT 10 MG TAB.RAPDIS TRANSLINGU ×2 (08:31→20:38)
--- NOTE | 2024-12-21 13:11 | HO.PSYCHPN ---
Subjective Subjective Date of Service: 12/21/24 Reason For Visit: Schizoaffective disorder, bipolar type Subjective Notes: Conditional Voluntary Healthcare Proxy: No Guardianship: No Medical Problems Affecting Mental Status: No Interim History: Anxious and apprehensive today. Awaiting decisions from [facility] regarding acceptance for services. Discussed respite options. Discussed longer term planning for safe residential care to avoid decompensation and rehospitalization. Pt is willing to remain on the unit until we are able to coordinate with out pt resources and possibly DM if accepted for safe discharge, as a result, pt will not discharge on 12/22. She will continue her medical eval, will continue to attend milieu offerings and plan with team. [facility] has submitted an application to [employer] which may be a possibility. If discharged without resources, decompensation is certain as we have experienced it in the past. Pt is invested and participating in this plan to clarify her residential and support needs as an out pt. Medication Compliance: Yes Side effects from medications: No Attending Groups: Yes Review of Systems Acute medical concerns: No Review of Systems Review of Systems Denies Mental Status Exam Mental Status Exam Patient Appearance: Appropriate Patient Orientation: Person, Place, Time and Situation Level of Consciousness: Alert Patient Behavior: Appropriate, Talkative, Cooperative and Good Eye Contact Mood Description: Calm Affect Description: Calm Patient Cognition Impaired: No Ability to Follow Directions: Good Speech Pattern: Spontaneous Speech Memory Description: Intact Hallucinations: None Delusions: Not Present Thought Process: Intact and Goal Oriented Thought Content: positive for Intact (denies SI/HI ) and positive for Goal Oriented Depressive Symptoms: Thoughts of /Suicide (denies) Judgement: Good Diagnostics Vital Signs (24Hr): Vital Signs - 24 hr 12/20/24 19:36 12/21/24 08:21 Temperature 98.0 F 97.8 F Pulse Rate 98 80 Respiratory Rate 16 Blood Pressure 118/66 111/56 L Pulse Oximetry 98 96 Oxygen Delivery Method Room Air Room Air BMI result Body Mass Index 40.5 Labs 12/09/24 04:38 12/10/24 08:02 Medications Medications Current Medications Acetaminophen (Acetaminophen 325 Mg Tablet) 650 mg PO Q6H PRN PRN Reason: Headache/Pain, Scale 1-10 Last Admin: 12/12/24 14:21 Dose: 650 mg Al Hydroxide/Mg Hydroxide (Magnesium Hydrox/Alum Hydrox 30 Ml Oral.Susp) 30 ml PO Q6H PRN PRN Reason: Heartburn/Nausea Albuterol Sulfate (Albuterol Sulfate 90 Mcg 8 Gm Inhaler) 2 puff INHALE RQ6H PRN PRN Reason: Wheezing Last Admin: 12/20/24 14:23 Dose: 2 puff Atorvastatin Calcium (Atorvastatin Calcium 10 Mg Tablet) 10 mg PO BEDTIME [facility] Last Admin: 12/20/24 20:38 Dose: 10 mg Cyclobenzaprine HCl (Cyclobenzaprine Hcl 10 Mg Tablet) 10 mg PO BID PRN PRN Reason: Muscle Spasm Last Admin: 12/21/24 08:31 Dose: 10 mg Diphenhydramine HCl (Diphenhydramine Hcl 25 Mg Capsule) 50 mg PO BID PRN PRN Reason: Anxiety Divalproex Sodium (Divalproex Sodium Er 500 Mg Tab.Er.24h) 1,000 mg PO BEDTIME [facility] Last Admin: 12/20/24 20:38 Dose: 1,000 mg Fluticasone Propionate (Fluticasone Propionate Nasal 16 Gm [place]) 1 spray NOSTRIL-B DAILY [facility] Last Admin: 12/21/24 08:30 Dose: 1 spray Fluticasone/Vilanterol (Fluticasone/Vilanterol 100/25 Blst.W.Dev) 1 puff INHALE RDAILY [facility] Last Admin: 12/21/24 08:30 Dose: 1 puff Haloperidol (Haloperidol 5 Mg Tablet) 7.5 mg PO BID [facility] Last Admin: 12/21/24 08:30 Dose: 7.5 mg Hydroxyzine HCl (Hydroxyzine Hcl 25 Mg Tablet) 25 mg PO Q6H PRN PRN Reason: mild anxiety Last Admin: 12/20/24 18:50 Dose: 25 mg Loratadine (Loratadine 10 Mg Tablet) 10 mg PO DAILY PRN PRN Reason: allergy symptoms Last Admin: 12/14/24 08:12 Dose: 10 mg Magnesium Hydroxide (Milk Of Magnesia 30 Ml Oral.Susp) 30 ml PO DAILY PRN PRN Reason: Constipation Meclizine HCl (Meclizine Hcl 12.5 Mg Tablet) 12.5 mg PO Q8H PRN PRN Reason: dizziness Last Admin: 12/21/24 08:31 Dose: 12.5 mg Montelukast Sodium (Montelukast Sodium 10 Mg Tablet) 10 mg PO DAILY [facility] Last Admin: 12/21/24 08:31 Dose: 10 mg Nicotine Polacrilex (Nicotine Polacrilex 2 Mg Gum) 4 mg BUCCAL Q2H PRN PRN Reason: Nicotine Cravings Olanzapine (Olanzapine Odt 10 Mg Tab.Rapdis) 10 mg TRANSLINGU BID [facility] Last Admin: 12/21/24 08:31 Dose: 10 mg Tiotropium Rush (Tiotropium Rush 2.5 Mcg 1 Puff/2.5 Mcg Mist.Inhal) 2 puff INHALE RDAILY [facility] Last Admin: 12/21/24 08:30 Dose: 2 puff Trazodone HCl (Trazodone Hcl 50 Mg Tablet) 50 mg PO BEDTIME MRX1 PRN PRN Reason: Insomnia Last Admin: 12/20/24 20:38 Dose: 50 mg Allergies Allergies Allergy/AdvReac Type Severity Reaction Status Date / Time animal dander (PET DANDER) Allergy Unknown Itching Verified 12/09/24 03:30 bee pollen (BEE STINGS) Allergy Unknown Swelling Verified 12/09/24 03:30 house dust Allergy Unknown Unknown Verified 12/09/24 03:30 shellfish derived (SHELLFISH Allergy Unknown Swelling Verified 12/09/24 03:30 DERIVED) Seasonal Allergies Allergy Itching Verified 12/09/24 03:30 Assessment & Plan Assessment & Plan (1) PTSD (post-traumatic stress disorder): Status: Acute Code(s): F43.10 - Post-traumatic stress disorder, unspecified (2) Schizoaffective disorder: Qualifiers: Schizoaffective disorder type: unspecified Qualified Code(s): F25.9 - Schizoaffective disorder, unspecified Status: Acute Code(s): F25.9 - Schizoaffective disorder, unspecified (3) Alcohol use: Status: Acute Code(s): F10.90 - Alcohol use, unspecified, uncomplicated Plan HPI: Patient is 39 year old currently single [place] speaking female who with history of autism, schizoaffective, bipolar type who has not had stable housing for many months. She is well known to the [facility] ED and psychiatric units. She was BIBA complaining of SI, homelessness. She states I am not feeling like myself and want to harm myself. CC feeling so well. I am homeless. I do not feel like myself past couple of weeks. I do not have people to help me in community . Patient explained problems that she needs help with : Housing, SSI. ID, and certification. Reassure patient that, we can not help her with those concerns as the inpatient level of care. Reports passive SI with thoughts of taking pills but she knows that she is can not do it here, denies SIB, denies HI, denies AVH. However reports sometimes he has she sees people, images, and sometimes hearing bad thoughts to harm myself . Reports history of suicidal thoughts, up to 6 suicide attempts via popping pills, drinking or using cocaine. Mood is bad, depressed, anxious . She is tearful, scared being on the street . Reports that she slept a lot , not having enough food as she does not have money to for food. Goal is t to go to respite or to the penitentiary after discharge. Reports consistently taking medication. Formulation/clinical reasoning: Increase in depression, increase in sleep, tearful, hopeless. Usually patient appeared to be happy, but this time he she is tearful and depressed. History of schizoaffective bipolar type, history of homeless, history of not compliant with medications, on not follow-up with outpatient providers. Reports that she was not referred to any outpatient services, currently has passive suicidal thoughts. History of AVH. Given the above information, patient will be benefit in restrictive environment her safety, medication management to target depression symptoms, refer patient to outpatient psychiatric services as aftercare. Hospital course: 12/09/24: Will have the attending taking her home medications. Need clarification. Some orders was held on admission. 12/10: Regime review with pt and re-established. Assist pt in connecting to community resources to help with housing Collateral contact Med adjustments as needed Pt has made a call to the [facility] to discuss sober living. 12/11: continue current management and treatment plan. 12/12: continue current management and treatment plan. 12/13: Continue tx and assist pt in moving to her next step in residential treatment. 12/15: Continue current treatment regimen. 12/16: Continue current treatment regimen. 12/17: Will discuss EEG/MRI next week. Tentative DC 12/22. [facility] will be making a decision about accepting pt for services on 12/21. Continue current treatment regime 12/18 Pleasant on approach, denies any psychiatric symptoms, denies any auditory hallucinations; staff reports has good mood, stable and in good behavioral control 12/19 remains stable; CTP 12/21: await decision for services from [facility] continue treatment plan continue diagnostic eval. Plan Patient on 15 minute checks for safety. Admitted to . CV. Work with treatment team to do collateral and possible for penitentiary/respite referral. Reason for continued inpatient stay Substantial Risk for: rapid decompensation Time Spent With Patient Time: Total time managing care of this patient today ____ minutes.
[2024-12-21] MEDS: Albuterol Sulfate 90 MCG 8 GM INHALER 2 PUFF INHALE (16:12)
[2024-12-21 20:02] VITALS: BP 115/70; PULSE 97; RESP 16; TEMP 36.4; O2SAT 98
[2024-12-22 08:19] VITALS: BP 154/88; PULSE 83; RESP 16; TEMP 36.6; O2SAT 100
[2024-12-22] MEDS: Fluticasone/Vilanterol 100/25 BLST.W.DEV 1 PUFF INHALE (08:20)
[2024-12-22] MEDS: OLANZapine ODT 10 MG TAB.RAPDIS TRANSLINGU ×2 (08:21→20:45)
[2024-12-22] MEDS: Tiotropium Bromide 2.5 mcg 1 PUFF/2.5 MCG MIST.INHAL 2 PUFF INHALE (08:28)
--- NOTE | 2024-12-22 10:01 | HO.PSYCHPN ---
Subjective Subjective Date of Service: 12/22/24 Reason For Visit: Schizoaffective disorder, bipolar type Subjective Notes: Conditional Voluntary Healthcare Proxy: No Guardianship: No Medical Problems Affecting Mental Status: No Interim History: Team reports pt slept eight hours. EEG, skull xrays, KUB, CXR completed. CAT Brain ordered per recommendation of radiology s/p abnormal skull xray. Pt cooperative with process. [facility] has made a referral to [facility] for pt. CMP, CBC, Valproate level ordred for 12/23. Medication Compliance: Yes Side effects from medications: No Attending Groups: Intermittent Review of Systems Diagnostics are pending Review of Systems Review of Systems Denies Mental Status Exam Mental Status Exam Patient Appearance: Appropriate Patient Orientation: Person, Place, Time and Situation Level of Consciousness: Alert Patient Behavior: Appropriate, Talkative, Cooperative and Good Eye Contact Mood Description: Calm Affect Description: Calm Patient Cognition Impaired: No Ability to Follow Directions: Good Speech Pattern: Spontaneous Speech Memory Description: Intact Hallucinations: None Delusions: Not Present Thought Process: Intact and Goal Oriented Thought Content: positive for Intact (denies SI/HI ) and positive for Goal Oriented Depressive Symptoms: Thoughts of /Suicide (denies) Judgement: Good Diagnostics Vital Signs (24Hr): Vital Signs - 24 hr 12/21/24 20:02 12/22/24 08:19 Temperature 97.6 F 97.8 F Pulse Rate 97 83 Respiratory Rate 16 16 Blood Pressure 115/70 154/88 H Pulse Oximetry 98 100 Oxygen Delivery Method Room Air Room Air BMI result Body Mass Index 40.5 Labs 12/09/24 04:38 12/10/24 08:02 Medications Medications Current Medications Acetaminophen (Acetaminophen 325 Mg Tablet) 650 mg PO Q6H PRN PRN Reason: Headache/Pain, Scale 1-10 Last Admin: 12/12/24 14:21 Dose: 650 mg Al Hydroxide/Mg Hydroxide (Magnesium Hydrox/Alum Hydrox 30 Ml Oral.Susp) 30 ml PO Q6H PRN PRN Reason: Heartburn/Nausea Albuterol Sulfate (Albuterol Sulfate 90 Mcg 8 Gm Inhaler) 2 puff INHALE RQ6H PRN PRN Reason: Wheezing Last Admin: 12/21/24 16:12 Dose: 2 puff Atorvastatin Calcium (Atorvastatin Calcium 10 Mg Tablet) 10 mg PO BEDTIME [facility] Last Admin: 12/21/24 20:39 Dose: 10 mg Cyclobenzaprine HCl (Cyclobenzaprine Hcl 10 Mg Tablet) 10 mg PO BID PRN PRN Reason: Muscle Spasm Last Admin: 12/21/24 08:31 Dose: 10 mg Diphenhydramine HCl (Diphenhydramine Hcl 25 Mg Capsule) 50 mg PO BID PRN PRN Reason: Anxiety Divalproex Sodium (Divalproex Sodium Er 500 Mg Tab.Er.24h) 1,000 mg PO BEDTIME [facility] Last Admin: 12/21/24 20:38 Dose: 1,000 mg Fluticasone Propionate (Fluticasone Propionate Nasal 16 Gm [place]) 1 spray NOSTRIL-B DAILY [facility] Last Admin: 12/22/24 08:21 Dose: 1 spray Fluticasone/Vilanterol (Fluticasone/Vilanterol 100/25 Blst.W.Dev) 1 puff INHALE RDAILY [facility] Last Admin: 12/22/24 08:20 Dose: 1 puff Haloperidol (Haloperidol 5 Mg Tablet) 7.5 mg PO BID [facility] Last Admin: 12/22/24 08:21 Dose: 7.5 mg Hydroxyzine HCl (Hydroxyzine Hcl 25 Mg Tablet) 25 mg PO Q6H PRN PRN Reason: mild anxiety Last Admin: 12/21/24 18:48 Dose: 25 mg Loratadine (Loratadine 10 Mg Tablet) 10 mg PO DAILY PRN PRN Reason: allergy symptoms Last Admin: 12/14/24 08:12 Dose: 10 mg Magnesium Hydroxide (Milk Of Magnesia 30 Ml Oral.Susp) 30 ml PO DAILY PRN PRN Reason: Constipation Meclizine HCl (Meclizine Hcl 12.5 Mg Tablet) 12.5 mg PO Q8H PRN PRN Reason: dizziness Last Admin: 12/21/24 20:39 Dose: 12.5 mg Montelukast Sodium (Montelukast Sodium 10 Mg Tablet) 10 mg PO DAILY [facility] Last Admin: 12/22/24 08:21 Dose: 10 mg Nicotine Polacrilex (Nicotine Polacrilex 2 Mg Gum) 4 mg BUCCAL Q2H PRN PRN Reason: Nicotine Cravings Olanzapine (Olanzapine Odt 10 Mg Tab.Rapdis) 10 mg TRANSLINGU BID [facility] Last Admin: 12/22/24 08:21 Dose: 10 mg Tiotropium [place] (Tiotropium [place] 2.5 Mcg 1 Puff/2.5 Mcg Mist.Inhal) 2 puff INHALE RDAILY [facility] Last Admin: 12/22/24 08:28 Dose: 2 puff Trazodone HCl (Trazodone Hcl 50 Mg Tablet) 50 mg PO BEDTIME MRX1 PRN PRN Reason: Insomnia Last Admin: 12/21/24 20:39 Dose: 50 mg Allergies Allergies Allergy/AdvReac Type Severity Reaction Status Date / Time animal dander (PET DANDER) Allergy Unknown Itching Verified 12/09/24 03:30 bee pollen (BEE STINGS) Allergy Unknown Swelling Verified 12/09/24 03:30 house dust Allergy Unknown Unknown Verified 12/09/24 03:30 shellfish derived (SHELLFISH Allergy Unknown Swelling Verified 12/09/24 03:30 DERIVED) Seasonal Allergies Allergy Itching Verified 12/09/24 03:30 Assessment & Plan Assessment & Plan (1) PTSD (post-traumatic stress disorder): Status: Acute Code(s): F43.10 - Post-traumatic stress disorder, unspecified (2) Schizoaffective disorder: Qualifiers: Schizoaffective disorder type: unspecified Qualified Code(s): F25.9 - Schizoaffective disorder, unspecified Status: Acute Code(s): F25.9 - Schizoaffective disorder, unspecified (3) Alcohol use: Status: Acute Code(s): F10.90 - Alcohol use, unspecified, uncomplicated Plan HPI: Patient is 39 year old currently single [place]one[place] speaking female who with history of autism, schizoaffective, bipolar type who has not had stable housing for many months. She is well known to the [facility] and psychiatric units. She was BIBA complaining of SI, homelessness. She states I am not feeling like myself and want to harm myself. CC feeling so well. I am homeless. I do not feel like myself past couple of weeks. I do not have people to help me in community . Patient explained problems that she needs help with : Housing, SSI. ID, and certification. Reassure patient that, we can not help her with those concerns as the inpatient level of care. Reports passive SI with thoughts of taking pills but she knows that she is can not do it here, denies SIB, denies HI, denies AVH. However reports sometimes he has she sees people, images, and sometimes hearing bad thoughts to harm myself . Reports history of suicidal thoughts, up to 6 suicide attempts via popping pills, drinking or using cocaine. Mood is bad, depressed, anxious . She is tearful, scared being on the street . Reports that she slept a lot , not having enough food as she does not have money to for food. Goal is t to go to respite or to the [facility] after discharge. Reports consistently taking medication. Formulation/clinical reasoning: Increase in depression, increase in sleep, tearful, hopeless. Usually patient appeared to be happy, but this time he she is tearful and depressed. History of schizoaffective bipolar type, history of homeless, history of not compliant with medications, on not follow-up with outpatient providers. Reports that she was not referred to any outpatient services, currently has passive suicidal thoughts. History of AVH. Given the above information, patient will be benefit in restrictive environment her safety, medication management to target depression symptoms, refer patient to outpatient psychiatric services as aftercare. Hospital course: 12/09/24: Will have the attending taking her home medications. Need clarification. Some orders was held on admission. 12/10: Regime review with pt and re-established. Assist pt in connecting to community resources to help with housing Collateral contact Med adjustments as needed Pt has made a call to the [facility] to discuss sober living. 12/11: continue current management and treatment plan. 12/12: continue current management and treatment plan. 12/13: Continue tx and assist pt in moving to her next step in residential treatment. 12/15: Continue current treatment regimen. 12/16: Continue current treatment regimen. 12/17: Will discuss EEG/MRI next week. Tentative DC 12/22. [facility] will be making a decision about accepting pt for services on 12/21. Continue current treatment regime 12/18 Pleasant on approach, denies any psychiatric symptoms, denies any auditory hallucinations; staff reports has good mood, stable and in good behavioral control 12/19 remains stable; CTP 12/22: continue tx. CAT Brain-skull xray with abnormalities Valproate, CBC, CMP on 12/23 [facility] has applied to [facility] for pt placement Plan Patient on 15 minute checks for safety. Admitted to . CV. Work with treatment team to do collateral and possible for [facility]/respite referral. Reason for continued inpatient stay Substantial Risk for: rapid decompensation Time Spent With Patient Time: Total time managing care of this patient today ____ minutes.
[2024-12-22 20:00] VITALS: BP 122/73; PULSE 99; RESP 18; TEMP 37.2; O2SAT 95
[2024-12-23 07:00] VITALS: BMI 41.4
[2024-12-23 08:00] VITALS: BP 109/60; PULSE 88; RESP 16; TEMP 36.4; O2SAT 97
[2024-12-23 08:17] LABS: MANUAL DIFF FLAG NO
[2024-12-23 08:20] LABS: Hematocrit 36.5 % (37.0-47.0); Hemoglobin 12.2 g/dl (12.0-16.0); Imm Gran Abs Auto 0.03 X10*3/uL (0.00-0.03); Imm Gran Pct Auto 0.5 % (0.0-0.4); Lymphocytes Absolute Auto 1.9 X10*3/uL (1.2-4.9); Mean Corpuscular HGB Conc 33.4 g/dl (31.0-35.0); Mean Corpuscular Hemoglobin 29.1 pg (27.0-33.0); Mean Corpuscular Volume 87.1 fL (80.0-98.0); NRBC Abs Auto 0.000 X10*3/uL (0.0-0.012); NRBC Pct Auto 0.0 /100WBC (0.0-0.2); Platelet Count 301 X10*3/uL (160-400); Red Blood Count 4.19 X10*6/uL (4.20-5.50); White Blood Count 5.6 X10*3/uL (4.8-10.8)
[2024-12-23 08:38] LABS: Alanine Aminotransferase 20 U/L (0-31); Albumin Level 4.1 g/dL (3.5-5.0); Alkaline Phosphatase 89 U/L (39-117); Anion Gap 10 (12-20); Aspartate Amino Transferase 20 U/L (5-31); Blood Urea Nitrogen 20 mg/dL (9-16); Calcium 9.4 mg/dL (8.4-10.2); Carbon Dioxide 28 mmol/L (22-29); Chloride 105 mmol/L (96-108); Creatinine Clr Calc Pharmacy 132.3; Estimated Glomerular Filt Rate > 60; Potassium 4.2 mmol/L (3.3-5.1); Sodium 139 mmol/L (135-145); Total Protein 7.1 g/dL (6.5-8.0)
[2024-12-23] MEDS: OLANZapine ODT 10 MG TAB.RAPDIS TRANSLINGU ×2 (10:58→20:40)
[2024-12-23] MEDS: Fluticasone/Vilanterol 100/25 BLST.W.DEV 1 PUFF INHALE (10:59)
[2024-12-23] MEDS: Tiotropium Bromide 2.5 mcg 1 PUFF/2.5 MCG MIST.INHAL 2 PUFF INHALE (10:59)
--- NOTE | 2024-12-23 12:43 | P.PNPSI_ITS ---
Subjective Subjective Date of Service: 12/23/24 Reason For Visit: Schizoaffective disorder, bipolar type Subjective Notes: Conditional Voluntary Healthcare Proxy: No Guardianship: No Medical Problems Affecting Mental Status: No Interim History: Diagnostics are returning with questions regarding possible metastatic disease, lytic lucencies, multiple myelomg lucencies. Reviewed with Dr. Amaya who recommended hospitalists be involved and possibly oncology which were requested. Pt is quiet in the milieu, did not attend groups today as she has been engaged in testing. EEG results are WNL- no current seizure sx. Pt reports she believes she has lung cancer from smoking, from having a high WBC years ago and from loss of her father and sister from lung cancer. She is reaching out for support from team, asking appropriate questions and is willing to meet with the hospitalist and continue evaluation. Medication Compliance: Yes Side effects from medications: No Attending Groups: No Review of Systems Acute medical concerns: Yes as noted Medical Review of Systems: unchanged Review of Systems Review of Systems Denies Mental Status Exam Mental Status Exam Patient Appearance: Appropriate Patient Orientation: Person, Place, Time and Situation Level of Consciousness: Alert Patient Behavior: Appropriate, Talkative, Cooperative and Good Eye Contact Mood Description: Calm Affect Description: Calm Patient Cognition Impaired: No Ability to Follow Directions: Good Speech Pattern: Spontaneous Speech Memory Description: Intact Hallucinations: None Delusions: Not Present Thought Process: Intact and Goal Oriented Thought Content: positive for Intact (denies SI/HI ) and positive for Goal Oriented Depressive Symptoms: Thoughts of /Suicide (denies) Judgement: Good Diagnostics Vital Signs (24Hr): Vital Signs - 24 hr 12/22/24 20:00 12/23/24 08:00 Temperature 98.9 F 97.6 F Pulse Rate 99 88 Respiratory Rate 18 16 Blood Pressure 122/73 109/60 Pulse Oximetry 95 97 Oxygen Delivery Method Room Air BMI result Body Mass Index 41.4 Labs 12/23/24 08:03 12/23/24 08:03 Labs: Laboratory Results - last 48 hr 12/23/24 08:03 WBC 5.6 RBC 4.19 L Hgb 12.2 Hct 36.5 L MCV 87.1 MCH 29.1 MCHC 33.4 RDW 12.1 Plt Count 301 MPV 8.9 L Immature Gran % (Auto) 0.5 H Neut % (Auto) 57.5 Lymph % (Auto) 33.1 [place] % (Auto) 5.9 Eos % (Auto) 2.3 Baso % (Auto) 0.7 Lymph # (Auto) 1.9 [place] # (Auto) 0.3 Eos # (Auto) 0.1 Baso # (Auto) 0.0 Abs Immat Gran (auto) 0.03 Absolute Neuts (auto) 3.2 Absolute Nucleated RBC 0.000 Nucleated RBC % (auto) 0.0 Sodium 139 Potassium 4.2 Chloride 105 Carbon Dioxide 28 Anion Gap 10 L BUN 20 H Creatinine 0.62 Estim Creat Clear Calc 132.3 Estimated GFR > 60 Random Glucose 77 Calcium 9.4 Total Bilirubin 0.3 AST 20 ALT 20 Alkaline Phosphatase 89 Total Protein 7.1 Albumin 4.1 Valproic Acid 42.6 L Imaging Radiology Impressions: ITS Impressions Head CT 12/22/24 19:14 IMPRESSION: Abnormal diploe bony calvarium. Consider calcium metabolic disorders versus lymphoproliferative disorder versus metastatic disease. Unknown etiology. No acute intracranial abnormality by CT. Electronically signed by: Amos Hendrix MD 12/23/2024 08:13 AM EDT Medications Medications Current Medications Acetaminophen (Acetaminophen 325 Mg Tablet) 650 mg PO Q6H PRN PRN Reason: Headache/Pain, Scale 1-10 Last Admin: 12/12/24 14:21 Dose: 650 mg Al Hydroxide/Mg Hydroxide (Magnesium Hydrox/Alum Hydrox 30 Ml Oral.Susp) 30 ml PO Q6H PRN PRN Reason: Heartburn/Nausea Albuterol Sulfate (Albuterol Sulfate 90 Mcg 8 Gm Inhaler) 2 puff INHALE RQ6H PRN PRN Reason: Wheezing Last Admin: 12/21/24 16:12 Dose: 2 puff Atorvastatin Calcium (Atorvastatin Calcium 10 Mg Tablet) 10 mg PO BEDTIME NATALIA Last Admin: 12/22/24 20:48 Dose: 10 mg Cyclobenzaprine HCl (Cyclobenzaprine Hcl 10 Mg Tablet) 10 mg PO BID PRN PRN Reason: Muscle Spasm Last Admin: 12/23/24 10:56 Dose: 10 mg Diphenhydramine HCl (Diphenhydramine Hcl 25 Mg Capsule) 50 mg PO BID PRN PRN Reason: Anxiety Divalproex Sodium (Divalproex Sodium Er 500 Mg Tab.Er.24h) 1,000 mg PO BEDTIME NATALIA Last Admin: 12/22/24 20:47 Dose: 1,000 mg Fluticasone Propionate (Fluticasone Propionate Nasal 16 Gm [place]) 1 spray NOSTRIL-B DAILY [facility] Last Admin: 12/23/24 11:02 Dose: 1 spray Fluticasone/Vilanterol (Fluticasone/Vilanterol 100/25 Blst.W.Dev) 1 puff INHALE RDAILY [facility] Last Admin: 12/23/24 10:59 Dose: 1 puff Haloperidol (Haloperidol 5 Mg Tablet) 7.5 mg PO BID [facility] Last Admin: 12/23/24 10:57 Dose: 7.5 mg Hydroxyzine HCl (Hydroxyzine Hcl 25 Mg Tablet) 25 mg PO Q6H PRN PRN Reason: mild anxiety Last Admin: 12/23/24 10:56 Dose: 25 mg Loratadine (Loratadine 10 Mg Tablet) 10 mg PO DAILY PRN PRN Reason: allergy symptoms Last Admin: 12/14/24 08:12 Dose: 10 mg Magnesium Hydroxide (Milk Of Magnesia 30 Ml Oral.Susp) 30 ml PO DAILY PRN PRN Reason: Constipation Meclizine HCl (Meclizine Hcl 12.5 Mg Tablet) 12.5 mg PO Q8H PRN PRN Reason: dizziness Last Admin: 12/22/24 10:31 Dose: 12.5 mg Montelukast Sodium (Montelukast Sodium 10 Mg Tablet) 10 mg PO DAILY [facility] Last Admin: 12/23/24 10:58 Dose: 10 mg Nicotine Polacrilex (Nicotine Polacrilex 2 Mg Gum) 4 mg BUCCAL Q2H PRN PRN Reason: Nicotine Cravings Olanzapine (Olanzapine Odt 10 Mg Tab.Rapdis) 10 mg TRANSLINGU BID [facility] Last Admin: 12/23/24 10:58 Dose: 10 mg Tiotropium [place] (Tiotropium [place] 2.5 Mcg 1 Puff/2.5 Mcg Mist.Inhal) 2 puff INHALE RDAILY [facility] Last Admin: 12/23/24 10:59 Dose: 2 puff Trazodone HCl (Trazodone Hcl 50 Mg Tablet) 50 mg PO BEDTIME MRX1 PRN PRN Reason: Insomnia Last Admin: 12/22/24 20:48 Dose: 50 mg Allergies Allergies Allergy/AdvReac Type Severity Reaction Status Date / Time animal dander (PET DANDER) Allergy Unknown Itching Verified 12/09/24 03:30 bee pollen (BEE STINGS) Allergy Unknown Swelling Verified 12/09/24 03:30 house dust Allergy Unknown Unknown Verified 12/09/24 03:30 shellfish derived (SHELLFISH Allergy Unknown Swelling Verified 12/09/24 03:30 DERIVED) Seasonal Allergies Allergy Itching Verified 12/09/24 03:30 Assessment & Plan Assessment & Plan (1) PTSD (post-traumatic stress disorder): Status: Acute Code(s): F43.10 - Post-traumatic stress disorder, unspecified (2) Schizoaffective disorder: Qualifiers: Schizoaffective disorder type: unspecified Qualified Code(s): F25.9 - Schizoaffective disorder, unspecified Status: Acute Code(s): F25.9 - Schizoaffective disorder, unspecified (3) Alcohol use: Status: Acute Code(s): F10.90 - Alcohol use, unspecified, uncomplicated Plan HPI: Patient is 39 year old currently single Stateless speaking female who with history of autism, schizoaffective, bipolar type who has not had stable housing for many months. She is well known to the [facility] ED and psychiatric units. She was BIBA complaining of SI, homelessness. She states I am not feeling like myself and want to harm myself. CC feeling so well. I am homeless. I do not feel like myself past couple of weeks. I do not have people to help me in community . Patient explained problems that she needs help with : Housing, SSI. ID, and certification. Reassure patient that, we can not help her with those concerns as the inpatient level of care. Reports passive SI with thoughts of taking pills but she knows that she is can not do it here, denies SIB, denies HI, denies AVH. However reports sometimes he has she sees people, images, and sometimes hearing bad thoughts to harm myself . Reports history of suicidal thoughts, up to 6 suicide attempts via popping pills, drinking or using cocaine. Mood is bad, depressed, anxious . She is tearful, scared being on the street . Reports that she slept a lot , not having enough food as she does not have money to for food. Goal is t to go to respite or to the correction after discharge. Reports consistently taking medication. Formulation/clinical reasoning: Increase in depression, increase in sleep, tearful, hopeless. Usually patient appeared to be happy, but this time he she is tearful and depressed. History of schizoaffective bipolar type, history of homeless, history of not compliant with medications, on not follow-up with outpatient providers. Reports that she was not referred to any outpatient services, currently has passive suicidal thoughts. History of AVH. Given the above information, patient will be benefit in restrictive environment her safety, medication management to target depression symptoms, refer patient to outpatient psychiatric services as aftercare. Hospital course: 12/09/24: Will have the attending taking her home medications. Need clarification. Some orders was held on admission. 12/10: Regime review with pt and re-established. Assist pt in connecting to community resources to help with housing Collateral contact Med adjustments as needed Pt has made a call to the [facility] to discuss sober living. 12/11: continue current management and treatment plan. 12/12: continue current management and treatment plan. 12/13: Continue tx and assist pt in moving to her next step in residential treatment. 12/15: Continue current treatment regimen. 12/16: Continue current treatment regimen. 12/17: Will discuss EEG/MRI next week. Tentative DC 12/22. [facility] will be making a decision about accepting pt for services on 12/21. Continue current treatment regime 12/18 Pleasant on approach, denies any psychiatric symptoms, denies any auditory hallucinations; staff reports has good mood, stable and in good behavioral control 12/19 remains stable; CTP 12/22: continue tx. CAT Brain-skull xray with abnormalities Valproate, CBC, CMP on 12/23 [facility] has applied to [facility] for pt placement 12/23: Hospitalist consult- possible metastatic disease, lytic lucencies, multiple myeloma lucencies Continue regime Continue to support pt. Plan Patient on 15 minute checks for safety. Admitted to . CV. Work with treatment team to do collateral and possible for correction/respite referral. Reason for continued inpatient stay Substantial Risk for: rapid decompensation and med/psych decompensation Time Spent With Patient Time: Total time managing care of this patient today ____ minutes.
[2024-12-23 20:00] VITALS: BP 125/85; PULSE 108; RESP 18; TEMP 37.1; O2SAT 97
--- NOTE | 2024-12-23 21:21 | HO.PM.IMCN ---
History of Present Illness Data of Consult Service Date: 12/23/24 Requesting physician: Debbi Koroma Primary Care Provider: Unknown Physician HPI Reason for consult: Abnormal CT HEAD Patient is a 39-year-old female Lebanese speaking with past medical history vertigo, IUD, allergic rhinitis, asthma, alcohol use disorder, marijuana use (edibles), tobacco use presents with abnormal CT scan of the head and consult was requested by Psychiatry. Patient originally had a x-ray of the skull for workup for pre MRI testing and this was suspicious for osseous metastatic disease with lytic lucencies and/or lucencies of multiple myeloma. CT of the head was recommended and results indicated consideration of calcium metabolic disorders versus lymphoproliferative disorders versus metastatic disease. The CT was negative for any acute intracranial abnormalities. KUB also completed and patient has an IUD in place. Patient can not remember when the IUD was placed or what type of IUD she has. Pt denies any cardiac hx and does not have diabetes or thyroid diseaase. Pt did have her wisdom teeth removed when she was younger. Pt believes she has a fatty liver. Pt had a mammogram 5 years ago and was told it was normal. Pt denies any gun issues or cancers. Pt denies any chest pain, sob at rest or with exertion, abd pain, WORKMAN or visual changes. . Patient offered that she self-diagnosed herself with stage III lung cancer because she is a known smoker. Patient denies any history of seeing an oncologist for any reason in the past. Pt denies hx of other cancer in the past. Patient took the news of the abnormal CT scan well. Pt has been in and out of [facility] psychiatric facility due to homelessness and noncompliance with psychiatric medications for PTSD, Schizoaffective disorder, and Bipolar disorder. . Review of Systems Review of Systems: Patient currently denies any chest pain, shortness of breath at rest or with exertion, abdominal pain, nausea or vomiting. Patient is not having any headaches or visual changes or difficulty swallowing or chewing. Patient has a intermittent back pain that she has had for years. Patient denies any issues with voiding or bowel movements. Patient does have an IUD but does not know what type of IUD she has a when it was put in. Yes all other systems are reviewed and are negative [facility] History (Updated 12/23/24 @ 21:43 by OSBALDO Paula) IUD (intrauterine device) in place Marijuana use Tobacco use Alcohol use Suicidal ideation Suicidal ideation Bipolar disorder Severe asthma with allergic rhinitis Allergic rhinitis Vertigo Cognitive capacity: Alert and orientated x3 Functional capacity: independent ambulation Patient : No (HCG negative as of 12/09/2024) Family History Father Lung cancer CVD (cardiovascular disease) Mother Past heart attack Diabetes Emphysema lung CVD (cardiovascular disease) Family/Other FH: mental illness Maternal Grandmother No problems noted. Paternal Grandmother No problems noted. Surgical History (Updated 12/23/24 @ 21:44 by OSBALDO Paula) H/O wisdom tooth extraction No pertinent past surgical history Social History Household Members: None Housing: Homeless Do you presently have visiting nurse or other home services: No Unable to assess alcohol history related to: Refusing to respond Alcohol intake: current Alcohol intake frequency: a few times a week Alcohol type: hard liquor Comment: close observations at night Patient Tobacco Use Status: Current everyday Tobacco user Tobacco use type: Cigarette Cigarette Packs Per Day: 1 Cigarettes Per Day: 20.0 Years Smoked: 11 Smoked in Last 30 Days: Yes e-Cigarette/Vaping Use: Never Used Patient Interested in Nicotine Replacement: Yes Patient Given Instructions on How to Stop Smoking: Yes Date Education Initiated: 12/09/24 Second Hand Smoke Exposure: No Use of substances other than those prescribed or required for medical reasons: Yes Substance Use Type: Marijuana Substance Use Frequency: Daily Currently Displaying Signs/Symptoms of Drug Intoxication Withdrawal: No Have you been hit, kicked, punched, or otherwise hurt by someone within the past year? If so, by whom?: No Do you feel safe in your current relationship?: No Current Relationship Is there a partner from a previous relationship who is making you feel unsafe now?: No Are you made to feel afraid or neglected: No Spiritual Healthcare Practices: none reported Hoahaoism Healthcare Practices: none reported Cultural Healthcare Practices: none reported Advance Directives: No Advance Directives Information Provided: Yes Do you have thoughts of harming others: None Do you have a plan to hurt others: No Plan Recently lost weight without trying: No How much weight loss: Not applicable Eating poorly because of decreased appetite: No Nutrition screen score: 0 Nutrition Risks: No Nutritional Risk Patient : No : No Poor oral hygiene: No service: No Current occupational status: unemployed Sexual orientation: Unable to collect Cognitive needs: No Hearing needs: No Vision needs: No Ebola Risk: Travel/Contact With Anyone From Affected Area/s: No Has Patient Experienced Ebola Symptoms: No Meds Allergies Allergy/AdvReac Type Severity Reaction Status Date / Time animal dander (PET DANDER) Allergy Unknown Itching Verified 12/09/24 03:30 bee pollen (BEE STINGS) Allergy Unknown Swelling Verified 12/09/24 03:30 house dust Allergy Unknown Unknown Verified 12/09/24 03:30 shellfish derived (SHELLFISH Allergy Unknown Swelling Verified 12/09/24 03:30 DERIVED) Seasonal Allergies Allergy Itching Verified 12/09/24 03:30 Active Medications: Current Medications Acetaminophen (Acetaminophen 325 Mg Tablet) 650 mg PO Q6H PRN PRN Reason: Headache/Pain, Scale 1-10 Last Admin: 12/12/24 14:21 Dose: 650 mg Al Hydroxide/Mg Hydroxide (Magnesium Hydrox/Alum Hydrox 30 Ml Oral.Susp) 30 ml PO Q6H PRN PRN Reason: Heartburn/Nausea Albuterol Sulfate (Albuterol Sulfate 90 Mcg 8 Gm Inhaler) 2 puff INHALE RQ6H PRN PRN Reason: Wheezing Last Admin: 12/21/24 16:12 Dose: 2 puff Atorvastatin Calcium (Atorvastatin Calcium 10 Mg Tablet) 10 mg PO BEDTIME [facility] Last Admin: 12/23/24 20:40 Dose: 10 mg Cyclobenzaprine HCl (Cyclobenzaprine Hcl 10 Mg Tablet) 10 mg PO BID PRN PRN Reason: Muscle Spasm Last Admin: 12/23/24 10:56 Dose: 10 mg Diphenhydramine HCl (Diphenhydramine Hcl 25 Mg Capsule) 50 mg PO BID PRN PRN Reason: Anxiety Divalproex Sodium (Divalproex Sodium Er 500 Mg Tab.Er.24h) 1,000 mg PO BEDTIME [facility] Last Admin: 12/23/24 20:42 Dose: 1,000 mg Fluticasone Propionate (Fluticasone Propionate Nasal 16 Gm [place]) 1 spray NOSTRIL-B DAILY [facility] Last Admin: 12/23/24 11:02 Dose: 1 spray Fluticasone/Vilanterol (Fluticasone/Vilanterol 100/25 Blst.W.Dev) 1 puff INHALE RDAILY [facility] Last Admin: 12/23/24 10:59 Dose: 1 puff Haloperidol (Haloperidol 5 Mg Tablet) 7.5 mg PO BID [facility] Last Admin: 12/23/24 20:40 Dose: 7.5 mg Hydroxyzine HCl (Hydroxyzine Hcl 25 Mg Tablet) 25 mg PO Q6H PRN PRN Reason: mild anxiety Last Admin: 12/23/24 17:43 Dose: 25 mg Loratadine (Loratadine 10 Mg Tablet) 10 mg PO DAILY PRN PRN Reason: allergy symptoms Last Admin: 12/14/24 08:12 Dose: 10 mg Magnesium Hydroxide (Milk Of Magnesia 30 Ml Oral.Susp) 30 ml PO DAILY PRN PRN Reason: Constipation Meclizine HCl (Meclizine Hcl 12.5 Mg Tablet) 12.5 mg PO Q8H PRN PRN Reason: dizziness Last Admin: 12/22/24 10:31 Dose: 12.5 mg Montelukast Sodium (Montelukast Sodium 10 Mg Tablet) 10 mg PO DAILY [facility] Last Admin: 12/23/24 10:58 Dose: 10 mg Nicotine Polacrilex (Nicotine Polacrilex 2 Mg Gum) 4 mg BUCCAL Q2H PRN PRN Reason: Nicotine Cravings Olanzapine (Olanzapine Odt 10 Mg Tab.Rapdis) 10 mg TRANSLINGU BID [facility] Last Admin: 12/23/24 20:40 Dose: 10 mg Tiotropium [place] (Tiotropium [place] 2.5 Mcg 1 Puff/2.5 Mcg Mist.Inhal) 2 [facility] Last Admin: 12/23/24 10:59 Dose: 2 puff Trazodone HCl (Trazodone Hcl 50 Mg Tablet) 50 mg PO BEDTIME MRX1 PRN PRN Reason: Insomnia Last Admin: 12/23/24 20:46 Dose: 50 mg Home Medications ?Medication ?Instructions ?Recorded ?Confirmed ?Last Taken ?Type divalproex 500 mg tablet,extended 500 mg PO DAILY 12/07/24 12/09/24 12/06/24 History release 24 hr Banophen 25 mg PO 12/09/24 Unknown History Macrobid 100 mg 12/09/24 Unknown History meclizine 12.5 mg PO 12/09/24 Unknown History melatonin 10 mg PO BEDTIME 12/09/24 12/09/24 Unknown History trazodone 50 mg tablet 50 mg PO BEDTIME PRN insomnia 12/09/24 12/09/24 Unknown History zinc 50 mg PO 12/09/24 Unknown History Physical Exam Vital Signs and Narrative: Vital Signs: Last Vital Signs Temp 97.6 F 12/23/24 08:00 Pulse 88 12/23/24 08:00 Resp 16 12/23/24 08:00 BP 109/60 12/23/24 08:00 Pulse Ox 97 12/23/24 08:00 O2 Del Method Room Air 12/22/24 20:00 BMI result Body Mass Index 41.4 Alert and orientated X3, able to give good history. Cooperative and pleasant Neuro: CN II-X11 intact, no deficits, visual acuity intact EYES: PERRLA, EOM intact, sclerae nonicteric, conjunctiva pink ENT: hearing intact, no issues with swallowing, uvula midline, lips moist, nares patent no epistaxis Cardiac: S1 S2 RRR, no murmur, no JVD, no edema in Lower ext Pulmonary: lungs clear to auscultation B Abdominal: BS active in all 4 quadrants, no guarding, tenderness, rebounding MSK: strength 5/5 upper and lower extremities : no CVA tenderness no bladder distension Extremities: no edema in lower extremities, PT and DP pulses palpable +2 Psych: mood stable, judgement and insight fair Skin: No new lesions or rashes Results Labs 12/23/24 08:03 12/23/24 08:03 Labs: Laboratory Results - last 24 hr 12/23/24 08:03 MCV 87.1 MCH 29.1 MCHC 33.4 RDW 12.1 Plt Count 301 MPV 8.9 L Immature Gran % (Auto) 0.5 H Neut % (Auto) 57.5 Lymph % (Auto) 33.1 [place] % (Auto) 5.9 Eos % (Auto) 2.3 Baso % (Auto) 0.7 Lymph # (Auto) 1.9 [place] # (Auto) 0.3 Eos # (Auto) 0.1 Baso # (Auto) 0.0 Abs Immat Gran (auto) 0.03 Absolute Neuts (auto) 3.2 Absolute Nucleated RBC 0.000 Nucleated RBC % (auto) 0.0 Anion Gap 10 L Estim Creat Clear Calc 132.3 Estimated GFR > 60 Random Glucose 77 Calcium 9.4 Total Bilirubin 0.3 AST 20 ALT 20 Alkaline Phosphatase 89 Total Protein 7.1 Albumin 4.1 Valproic Acid 42.6 L ECG Attestation: I personally reviewed and interpreted this ECG as follows: (Normal sinus rhythm QTC 432) Prior ECG tracings: available for review Imaging Radiologist's Impressions: Impressions Head CT 12/22/24 19:14 IMPRESSION: Abnormal diploe bony calvarium. Consider calcium metabolic disorders versus lymphoproliferative disorder versus metastatic disease. Unknown etiology. No acute intracranial abnormality by CT. Electronically signed by: Amos Hendrix MD 12/23/2024 08:13 AM EDT RP Assessment and Plan (1) Abnormal CT of the head: Status: Acute Plan Patient is a 39-year-old female Lebanese speaking with past medical history vertigo, IUD, allergic rhinitis, asthma, alcohol use disorder, marijuana use (edibles), tobacco use presents with abnormal CT scan of the head and consult was requested by Psychiatry. Patient originally had a x-ray of the skull for workup for pre MRI testing and this was suspicious for osseous metastatic disease with lytic lucencies and/or lucencies of multiple myeloma. CT of the head was recommended and results indicated consideration of calcium metabolic disorders versus lymphoproliferative disorders versus metastatic disease. The CT was negative for any acute intracranial abnormalities. Patient states she did self diagnosed with lung cancer stage III has never in the past seen an oncologist or had care for cancer. Abnormal CT of the head Plan to obtain CT of the abdomen and chest Oncology consulted noting lytic lesions Additional testing per Oncology Asthma without exacerbation Currently asymptomatic Ventolin inhaler PRN Zyrtec or equivalent daily Allergic rhinitis Fluticasone Continue Zyrtec or equivalent Vertigo Currently asymptomatic Can consider meclizine PRN if patient becomes symptomatic Alcohol use disorder No indication for CIWA Thiamine and folic acid Tobacco use Patient counseled on the benefits of smoking cessation Continue nicotine gum Patient deferred nicotine patch Marijuana use Edibles only Patient doing well without edibles in place Hospitalist will continue to follow and await recommendations from Oncology. We appreciate this consultation!
[2024-12-24 08:00] VITALS: BP 108/59; PULSE 85; TEMP 36.4; O2SAT 98
[2024-12-24] MEDS: Tiotropium Bromide 2.5 mcg 1 PUFF/2.5 MCG MIST.INHAL 2 PUFF INHALE (09:20)
[2024-12-24] MEDS: Fluticasone/Vilanterol 100/25 BLST.W.DEV 1 PUFF INHALE (09:20)
[2024-12-24] MEDS: OLANZapine ODT 10 MG TAB.RAPDIS TRANSLINGU ×2 (09:21→20:27)
--- NOTE | 2024-12-24 09:57 | HO.PSYCHPN ---
Subjective Subjective Date of Service: 12/24/24 Reason For Visit: Schizoaffective disorder, bipolar type Subjective Notes: Conditional Voluntary Healthcare Proxy: No Guardianship: No Medical Problems Affecting Mental Status: Yes Interim History: Calm, dissociative at times. I knew I had cancer . Evaluation continues. Pt with orders for further testing and to meet with oncology. Will have a bone scan on 12/27. Met with pt and Cassie Taylor CLINICAL LAB TECHNOLOGIST, review of testing, planning, pt processing all of this new information. Pt was informed that she has been accepted for [facility] services as well. Cassie and tw called sister Bhupinder to update. Pt is calling the family-is telling them she has terminal illness-which we have not been informed that these issues are terminal. Medication Compliance: Yes Side effects from medications: No Attending Groups: Intermittent Review of Systems Acute medical concerns: Yes Medical Review of Systems: unchanged Review of Systems Review of Systems Denies Mental Status Exam Mental Status Exam Patient Appearance: Appropriate Patient Orientation: Person, Place, Time and Situation Level of Consciousness: Alert Patient Behavior: Appropriate, Talkative, Cooperative and Good Eye Contact Mood Description: Calm Affect Description: Calm Patient Cognition Impaired: No Ability to Follow Directions: Good Speech Pattern: Spontaneous Speech Memory Description: Intact Hallucinations: None Delusions: Not Present Perceptual Disturbances: Derealization Thought Process: Intact and Goal Oriented Thought Content: positive for Intact (denies SI/HI ) and positive for Goal Oriented Depressive Symptoms: Thoughts of /Suicide (denies) Judgement: Good Diagnostics Vital Signs (24Hr): Vital Signs - 24 hr 12/23/24 20:00 12/24/24 08:00 Temperature 98.8 F 97.6 F Pulse Rate 108 H 85 Respiratory Rate 18 Blood Pressure 125/85 108/59 L Pulse Oximetry 97 98 Oxygen Delivery Method Room Air Room Air BMI result Body Mass Index 41.4 Labs 12/23/24 08:03 12/23/24 08:03 Labs: Laboratory Results - last 48 hr 12/23/24 08:03 WBC 5.6 RBC 4.19 L Hgb 12.2 Hct 36.5 L MCV 87.1 MCH 29.1 MCHC 33.4 RDW 12.1 Plt Count 301 MPV 8.9 L Immature Gran % (Auto) 0.5 H Neut % (Auto) 57.5 Lymph % (Auto) 33.1 [place] % (Auto) 5.9 Eos % (Auto) 2.3 Baso % (Auto) 0.7 Lymph # (Auto) 1.9 [place] # (Auto) 0.3 Eos # (Auto) 0.1 Baso # (Auto) 0.0 Abs Immat Gran (auto) 0.03 Absolute Neuts (auto) 3.2 Absolute Nucleated RBC 0.000 Nucleated RBC % (auto) 0.0 Sodium 139 Potassium 4.2 Chloride 105 Carbon Dioxide 28 Anion Gap 10 L BUN 20 H Creatinine 0.62 Estim Creat Clear Calc 132.3 Estimated GFR > 60 Random Glucose 77 Calcium 9.4 Total Bilirubin 0.3 AST 20 ALT 20 Alkaline Phosphatase 89 Total Protein 7.1 Albumin 4.1 Valproic Acid 42.6 L Imaging Radiology Impressions: ITS Impressions Head CT 12/22/24 19:14 IMPRESSION: Abnormal diploe bony calvarium. Consider calcium metabolic disorders versus lymphoproliferative disorder versus metastatic disease. Unknown etiology. No acute intracranial abnormality by CT. Electronically signed by: Amos Hendrix MD 12/23/2024 08:13 AM EDT Medications Medications Current Medications Acetaminophen (Acetaminophen 325 Mg Tablet) 650 mg PO Q6H PRN PRN Reason: Headache/Pain, Scale 1-10 Last Admin: 12/12/24 14:21 Dose: 650 mg Al Hydroxide/Mg Hydroxide (Magnesium Hydrox/Alum Hydrox 30 Ml Oral.Susp) 30 ml PO Q6H PRN PRN Reason: Heartburn/Nausea Albuterol Sulfate (Albuterol Sulfate 90 Mcg 8 Gm Inhaler) 2 puff INHALE RQ6H PRN PRN Reason: Wheezing Last Admin: 12/21/24 16:12 Dose: 2 puff Atorvastatin Calcium (Atorvastatin Calcium 10 Mg Tablet) 10 mg PO BEDTIME NATALIA Last Admin: 12/23/24 20:40 Dose: 10 mg Cyclobenzaprine HCl (Cyclobenzaprine Hcl 10 Mg Tablet) 10 mg PO BID PRN PRN Reason: Muscle Spasm Last Admin: 12/24/24 09:24 Dose: 10 mg Diphenhydramine HCl (Diphenhydramine Hcl 25 Mg Capsule) 50 mg PO BID PRN PRN Reason: Anxiety Divalproex Sodium (Divalproex Sodium Er 500 Mg Tab.Er.24h) 1,000 mg PO BEDTIME NATALIA Last Admin: 12/23/24 20:42 Dose: 1,000 mg Fluticasone Propionate (Fluticasone Propionate Nasal 16 Gm [place]) 1 spray NOSTRIL-B DAILY [facility] Last Admin: 12/24/24 09:20 Dose: 1 spray Fluticasone/Vilanterol (Fluticasone/Vilanterol 100/25 Blst.W.Dev) 1 puff INHALE RDAILY [facility] Last Admin: 12/24/24 09:20 Dose: 1 puff Haloperidol (Haloperidol 5 Mg Tablet) 7.5 mg PO BID [facility] Last Admin: 12/24/24 09:20 Dose: 7.5 mg Hydroxyzine HCl (Hydroxyzine Hcl 25 Mg Tablet) 25 mg PO Q6H PRN PRN Reason: mild anxiety Last Admin: 12/23/24 17:43 Dose: 25 mg Loratadine (Loratadine 10 Mg Tablet) 10 mg PO DAILY PRN PRN Reason: allergy symptoms Last Admin: 12/14/24 08:12 Dose: 10 mg Magnesium Hydroxide (Milk Of Magnesia 30 Ml Oral.Susp) 30 ml PO DAILY PRN PRN Reason: Constipation Meclizine HCl (Meclizine Hcl 12.5 Mg Tablet) 12.5 mg PO Q8H PRN PRN Reason: dizziness Last Admin: 12/24/24 09:24 Dose: 12.5 mg Montelukast Sodium (Montelukast Sodium 10 Mg Tablet) 10 mg PO DAILY [facility] Last Admin: 12/24/24 09:20 Dose: 10 mg Nicotine Polacrilex (Nicotine Polacrilex 2 Mg Gum) 4 mg BUCCAL Q2H PRN PRN Reason: Nicotine Cravings Olanzapine (Olanzapine Odt 10 Mg Tab.Rapdis) 10 mg TRANSLINGU BID [facility] Last Admin: 12/24/24 09:21 Dose: 10 mg Tiotropium [place] (Tiotropium [place] 2.5 Mcg 1 Puff/2.5 Mcg Mist.Inhal) 2 puff INHALE RDAILY [facility] Last Admin: 12/24/24 09:20 Dose: 2 puff Trazodone HCl (Trazodone Hcl 50 Mg Tablet) 50 mg PO BEDTIME MRX1 PRN PRN Reason: Insomnia Last Admin: 12/23/24 20:46 Dose: 50 mg Allergies Allergies Allergy/AdvReac Type Severity Reaction Status Date / Time animal dander (PET DANDER) Allergy Unknown Itching Verified 12/09/24 03:30 bee pollen (BEE STINGS) Allergy Unknown Swelling Verified 12/09/24 03:30 house dust Allergy Unknown Unknown Verified 12/09/24 03:30 shellfish derived (SHELLFISH Allergy Unknown Swelling Verified 12/09/24 03:30 DERIVED) Seasonal Allergies Allergy Itching Verified 12/09/24 03:30 Assessment & Plan Assessment & Plan (1) PTSD (post-traumatic stress disorder): Status: Acute Code(s): F43.10 - Post-traumatic stress disorder, unspecified (2) Schizoaffective disorder: Qualifiers: Schizoaffective disorder type: unspecified Qualified Code(s): F25.9 - Schizoaffective disorder, unspecified Status: Acute Code(s): F25.9 - Schizoaffective disorder, unspecified Plan 12/24: Continue regime Continue medical/oncology work up Reason for continued inpatient stay Substantial Risk for: rapid decompensation and med/psych decompensation Time Spent With Patient Time: Total time managing care of this patient today ____ minutes.
[2024-12-24] MEDS: iohexoL 350 MG/ML 100 ML INFUS..BTL IV (11:45)
--- NOTE | 2024-12-24 14:50 | P.CNHO_ITS ---
Subjective - Subjective Chief complaint: None reported Patient: new to practice Consult date: 12/24/24 Primary Care Provider: Unknown Physician Track Rider Utilized?: No - Guatemalan Speaking HPI - Consult Narrative Reason for consult: Lytic lesion on calvarium, abnormal CT findings Narrative: Samaria Corley is a 39 year old female with past medical history significant for asthma, alcohol use disorder and schizophrenia affective disorder he was admitted to the psychiatry [facility], oncology was consulted because of abnormal x- ray and CT findings. Patient had x-ray of skull performed 12/20/2024 for unclear reasons. This revealed lytic lucencies measuring 7 [address] head without contrast revealed lytic lesions measuring less than 1 cm. This was read as lymphoproliferative disorder versus metastatic disease. CT chest/abdomen and pelvis was ordered which was read as-right external iliac lymphadenopathy and left pelvic borderline adenopathy. Left renal angio lipoma. CT chest was read as anterior superior mediastinal mass could represent thymoma, lymphoma lymphadenopathy, T7 vertebral body lytic lesion concerning for metastatic disease or myeloma. Patient has no constitutional symptoms. She was never been diagnosed with any cancer. She has had multiple admissions to the psychiatry floor because of suicidal ideation and homelessness. Patient's father of lung cancer. She is a smoker. Review of Systems - Constitutional Reports as per [facility] Medical History: Medical History (Last Updated 12/23/24 @ 21:43 by OSBALDO Paula) Alcohol use Allergic rhinitis Bipolar disorder IUD (intrauterine device) in place Marijuana use Severe asthma with allergic rhinitis Suicidal ideation Suicidal ideation Tobacco use Vertigo Functional capacity: independent ambulation Family History: Family History (Last Reviewed 12/23/24 @ 21:42 by OSBALDO Paula) Father Lung cancer CVD (cardiovascular disease) Mother Past heart attack Diabetes Emphysema lung CVD (cardiovascular disease) Family/Other FH: mental illness Maternal Grandmother No problems noted. Paternal Grandmother No problems noted. Surgical History: Surgical History (Last Updated 12/23/24 @ 21:44 by OSBALDO Paula) H/O wisdom tooth extraction No pertinent past surgical history Social History: Social History (Last Reviewed 12/23/24 @ 21:42 by OSBALDO Paula) Living Situation History: Household Members: None Housing: Homeless Do you presently have visiting nurse or other home services: No Alcohol History: Unable to assess alcohol history related to: Refusing to respond Alcohol History Details: 1. How often do you have a drink containing alcohol?: d. 2-3 times a week 2. How many drinks containing alcohol do you have on a typical day when you are drinking?: a. 1 or 2 3. How often do you have six or more drinks on one occasion?: a. Never AUDIT-C Alcohol total score: 3 Currently Displaying Signs/Symptoms of Alcohol Withdrawal: No Tobacco History: Patient Tobacco Use Status: Current everyday Tobacco Tobacco use type: Cigarette Cigarette Packs Per Day: 1 Years Smoked: 11 Smoked in Last 30 Days: Yes Smoking End Date: 02/03/24 e-Cigarette/Vaping Use: Never Used Patient Interested in Nicotine Replacement: Yes Patient Given Instructions on How to Stop Smoking: Yes Date Education Initiated: 12/09/24 Second Hand Smoke Exposure: No Substance Use History: Use of substances other than those prescribed or required for medical reasons : Yes Substance Use Type: Marijuana Substance Use Frequency: Daily Currently Displaying Signs/Symptoms of Drug Intoxication Withdrawal: No Domestic Abuse History: Have you been hit, kicked, punched, or otherwise hurt by someone within the past year? If so, by whom?: No Do you feel safe in your current relationship?: No Current Relationship Is there a partner from a previous relationship who is making you feel unsafe now?: No Are you made to feel afraid or neglected: No Healthcare Practices: Spiritual Healthcare Practices: none reported Yazidi Healthcare Practices: none reported Cultural Healthcare Practices: none reported Advance Directives: Advance Directives: No Advance Directives Information Provided: Yes Homicidal Assessment: Do you have thoughts of harming others: None Do you have a plan to hurt others: No Plan Nutrition Assessment: Recently lost weight without trying: No How much weight loss: Not applicable Eating poorly because of decreased appetite: No Nutrition screen score: 0 Nutrition Risks: No Nutritional Risk Patient : No Patient comment: HCG negative as of 12/09/2024 : No Poor oral hygiene: No Occupation Assessmet: service: No Current occupational status: unemployed Sex/Gender Assessment: Sexual orientation: Unable to collect - Travel History Ebola Risk: Travel/Contact With Anyone From Affected Area/s: No Has Patient Experienced Ebola Symptoms: No Home Medications and Allergies Current Medications: Current Medications Acetaminophen (Acetaminophen 325 Mg Tablet) 650 mg PO Q6H PRN PRN Reason: Headache/Pain, Scale 1-10 Last Admin: 12/12/24 14:21 Dose: 650 mg Al Hydroxide/Mg Hydroxide (Magnesium Hydrox/Alum Hydrox 30 Ml Oral.Susp) 30 ml PO Q6H PRN PRN Reason: Heartburn/Nausea Albuterol Sulfate (Albuterol Sulfate 90 Mcg 8 Gm Inhaler) 2 puff INHALE RQ6H PRN PRN Reason: Wheezing Last Admin: 12/21/24 16:12 Dose: 2 puff Atorvastatin Calcium (Atorvastatin Calcium 10 Mg Tablet) 10 mg PO BEDTIME [facility] Last Admin: 12/23/24 20:40 Dose: 10 mg Cyclobenzaprine HCl (Cyclobenzaprine Hcl 10 Mg Tablet) 10 mg PO BID PRN PRN Reason: Muscle Spasm Last Admin: 12/24/24 09:24 Dose: 10 mg Diphenhydramine HCl (Diphenhydramine Hcl 25 Mg Capsule) 50 mg PO BID PRN PRN Reason: Anxiety Divalproex Sodium (Divalproex Sodium Er 500 Mg Tab.Er.24h) 1,000 mg PO BEDTIME [facility] Last Admin: 12/23/24 20:42 Dose: 1,000 mg Fluticasone Propionate (Fluticasone Propionate Nasal 16 Gm [place]) 1 spray NOSTRIL-B DAILY [facility] Last Admin: 12/24/24 09:20 Dose: 1 spray Fluticasone/Vilanterol (Fluticasone/Vilanterol 100/25 Blst.W.Dev) 1 puff INHALE RDAILY [facility] Last Admin: 12/24/24 09:20 Dose: 1 puff Haloperidol (Haloperidol 5 Mg Tablet) 7.5 mg PO BID [facility] Last Admin: 12/24/24 09:20 Dose: 7.5 mg Hydroxyzine HCl (Hydroxyzine Hcl 25 Mg Tablet) 25 mg PO Q6H PRN PRN Reason: mild anxiety Last Admin: 12/23/24 17:43 Dose: 25 mg Loratadine (Loratadine 10 Mg Tablet) 10 mg PO DAILY PRN PRN Reason: allergy symptoms Last Admin: 12/14/24 08:12 Dose: 10 mg Magnesium Hydroxide (Milk Of Magnesia 30 Ml Oral.Susp) 30 ml PO DAILY PRN PRN Reason: Constipation Meclizine HCl (Meclizine Hcl 12.5 Mg Tablet) 12.5 mg PO Q8H PRN PRN Reason: dizziness Last Admin: 12/24/24 09:24 Dose: 12.5 mg Montelukast Sodium (Montelukast Sodium 10 Mg Tablet) 10 mg PO DAILY [facility] Last Admin: 12/24/24 09:20 Dose: 10 mg Nicotine Polacrilex (Nicotine Polacrilex 2 Mg Gum) 4 mg BUCCAL Q2H PRN PRN Reason: Nicotine Cravings Olanzapine (Olanzapine Odt 10 Mg Tab.Rapdis) 10 mg TRANSLINGU BID [facility] Last Admin: 12/24/24 09:21 Dose: 10 mg Tiotropium [place] (Tiotropium [place] 2.5 Mcg 1 Puff/2.5 Mcg Mist.Inhal) 2 puff INHALE RDAILY [facility] Last Admin: 12/24/24 09:20 Dose: 2 puff Trazodone HCl (Trazodone Hcl 50 Mg Tablet) 50 mg PO BEDTIME MRX1 PRN PRN Reason: Insomnia Last Admin: 12/23/24 20:46 Dose: 50 mg Home Medications ?Medication ?Instructions ?Recorded ?Confirmed ?Type divalproex 500 mg tablet,extended 500 mg PO DAILY 12/07/24 12/09/24 Histor y release 24 hr Banophen 25 mg PO 12/09/24 History Macrobid 100 mg 12/09/24 History meclizine 12.5 mg PO 12/09/24 History melatonin 10 mg PO BEDTIME 12/09/24 12/09/24 Histo ry trazodone 50 mg tablet 50 mg PO BEDTIME PRN insomnia 12/09/24 0 12/09/24 History zinc 50 mg PO 12/09/24 History Allergies Allergy/AdvReac Type Severity Reaction Status Date / Time animal dander (PET DANDER) Allergy Unknown Itching Verified 12/09/24 03:30 bee pollen (BEE STINGS) Allergy Unknown Swelling Verified 12/09/24 03:30 house dust Allergy Unknown Unknown Verified 12/09/24 03:30 shellfish derived (SHELLFISH Allergy Unknown Swelling Verified 12/09/24 03:30 DERIVED) Seasonal Allergies Allergy Itching Verified 12/09/24 03:30 Physical Exam Vital signs: Vital Signs Temp 97.6 F 12/24/24 08:00 Pulse 85 12/24/24 08:00 Resp 18 12/23/24 20:00 BP 108/59 L 12/24/24 08:00 Pulse Ox 98 12/24/24 08:00 O2 Del Method Room Air 12/24/24 08:00 Intake & Output 12/23/24 12/24/24 12/24/24 18:59 06:59 18:59 Other: Weight 102.8 kg Weight 102.8 kg - Constitutional Present: no acute distress, obese - Routine HEENT Exam Head: Present: normal inspection Eye: Present: EOMI - Routine Neck Exam Present: supple. Absent: lymphadenopathy - Routine Respiratory Exam Present: CTAB - Routine Cardiovascular Exam Cardiovascular: Present: S1, S2 - Routine Abdominal Exam Present: soft Hem/Onc Consult Result - Labs CBC & Chem 7: 12/23/24 08:03 12/23/24 08:03 Assessment and Plan Patient Active problem list reviewed?: Yes (1) Abnormal CT of the head Status: Acute Assessment and plan: 1. This is a 39-year-old woman with schizoaffective disorder admitted to the psychiatric [facility] found to have nonspecific lytic lesions of the calvarium, measuring less than 1 cm on imaging. She has had subsequent CT head,brain MRI as well as chest, abdomen and pelvis which showed multiple findings as detailed in HPI. All of the scans were reviewed with radiologist, Dr. Chao who felt that anterior mediastinal mass was remnant of thymus. Lymph node in the abdomen and pelvis were too small and nonspecific, not suspicious for lymphoma. T7 lesion in the spine appeared to be hemangioma. Patient has no symptoms or signs worrisome for malignancy. Her blood work thus far is normal. To evaluate the calvarial lesions, have recommended a bone scan. Her blood work does not indicate multiple myeloma, serum immunofixation is pending. If all of the above workup is unremarkable, the calvarial lesions can be followed with repeat imaging in 3 months. Thank you for the consultation. - Time Spent With Patient Time Spent with Patient (in minutes): 20
--- NOTE | 2024-12-24 14:54 | PM.EVENT ---
Event Note Date of Service: 12/24/24 Event Note: follow up on imaging CT chest: Anterior superior mediastinal mass could represent thymoma, thymic neoplasm, lymphoma, or lymphadenopathy. Heterogeneous lytic lesion within the T8 vertebral body is concerning for metastatic disease or myeloma CT A/P: Right external iliac lymphadenopathy and left pelvic borderline adenopathy. Brain MRI negative d/w oncology who reviewed with radiology.does not feel findings on CT scans are strongly suggestive of malignancy. unclear if lytic lesions are benign or malignant - recommended full body bone scan which has been ordered. Time Spent With Patient Time: Total time managing care of this patient today ____ minutes.
[2024-12-24 15:53] LABS: Carcinoembryonic Antigen 2.00 ng/mL
[2024-12-24 19:53] VITALS: BP 130/75; PULSE 93; TEMP 37; O2SAT 96
[2024-12-25 08:18] VITALS: BP 150/79; PULSE 84; TEMP 36.8; O2SAT 96
[2024-12-25] MEDS: Fluticasone/Vilanterol 100/25 BLST.W.DEV 1 PUFF INHALE (09:20)
[2024-12-25] MEDS: Tiotropium Bromide 2.5 mcg 1 PUFF/2.5 MCG MIST.INHAL 2 PUFF INHALE (09:25)
[2024-12-25] MEDS: OLANZapine ODT 10 MG TAB.RAPDIS TRANSLINGU ×2 (09:36→20:48)
--- NOTE | 2024-12-25 10:36 | P.PNPSI_ITS ---
Subjective Subjective Date of Service: 12/25/24 Reason For Visit: Schizoaffective disorder, bipolar type Subjective Notes: Conditional Voluntary Healthcare Proxy: No Guardianship: No Medical Problems Affecting Mental Status: No Interim History: Samaria reports feeling tired today- testing takes a lot from you. Social with select peers-states she is encouraging her room-mate to accept treatment. Bone scan scheduled for 12/27. She describes apprehension. Medication Compliance: Yes Side effects from medications: No Attending Groups: Intermittent Review of Systems Medical Review of Systems: unchanged Review of Systems Review of Systems Denies, however, reports feeling tired. Mental Status Exam Mental Status Exam Patient Appearance: Appropriate Patient Orientation: Person, Place, Time and Situation Level of Consciousness: Alert Patient Behavior: Appropriate, Talkative, Cooperative and Good Eye Contact Mood Description: Calm Affect Description: Calm Patient Cognition Impaired: No Ability to Follow Directions: Good Speech Pattern: Spontaneous Speech Memory Description: Intact Hallucinations: None Delusions: Not Present Perceptual Disturbances: Derealization Thought Process: Intact and Goal Oriented Thought Content: positive for Intact (denies SI/HI ) and positive for Goal Oriented Depressive Symptoms: Thoughts of /Suicide (denies) Judgement: Good Judgement and Insight: reports feeling tired, yet apprehensive regarding upcoming tests on 12/27 (bone scan) Diagnostics Vital Signs (24Hr): Vital Signs - 24 hr 12/24/24 19:53 12/25/24 08:18 Temperature 98.6 F 98.2 F Pulse Rate 93 84 Blood Pressure 130/75 150/79 H Pulse Oximetry 96 96 Oxygen Delivery Method Room Air Room Air BMI result Body Mass Index 41.4 Labs 12/23/24 08:03 12/23/24 08:03 Labs: Laboratory Results - last 48 hr 12/24/24 15:12 Lactate Dehydrogenase 99 L [id number] 2.23 Carcinoembryonic Ag 2.00 Imaging Radiology Impressions: ITS Impressions Head CT 12/22/24 19:14 IMPRESSION: Abnormal diploe bony calvarium. Consider calcium metabolic disorders versus lymphoproliferative disorder versus metastatic disease. Unknown etiology. No acute intracranial abnormality by CT. Electronically signed by: Amos Hendrix MD 12/23/2024 08:13 AM EDT Abdomen/Pelvis CT 12/24/24 11:43 IMPRESSION: Right external iliac lymphadenopathy and left pelvic borderline adenopathy. 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 Moderate stool is present throughout the colon. Electronically signed by: Sg Knox MD 12/24/2024 01:00 PM EDT RP Chest CT 12/24/24 11:43 IMPRESSION: Anterior superior mediastinal mass could represent thymoma, thymic neoplasm, lymphoma, or lymphadenopathy. Heterogeneous lytic lesion within the T8 vertebral body is concerning for metastatic disease or myeloma. Fleischner guidelines were followed. Electronically signed by: Sg Knox MD 12/24/2024 12:46 PM EDT RP Brain MRI 12/24/24 11:51 IMPRESSION: No acute or structural brain abnormality. Electronically signed by: Amos Hendrix MD 12/24/2024 12:52 PM EDT RP Medications Medications Current Medications Acetaminophen (Acetaminophen 325 Mg Tablet) 650 mg PO Q6H PRN PRN Reason: Headache/Pain, Scale 1-10 Last Admin: 12/12/24 14:21 Dose: 650 mg Al Hydroxide/Mg Hydroxide (Magnesium Hydrox/Alum Hydrox 30 Ml Oral.Susp) 30 ml PO Q6H PRN PRN Reason: Heartburn/Nausea Albuterol Sulfate (Albuterol Sulfate 90 Mcg 8 Gm Inhaler) 2 puff INHALE RQ6H PRN PRN Reason: Wheezing Last Admin: 12/21/24 16:12 Dose: 2 puff Atorvastatin Calcium (Atorvastatin Calcium 10 Mg Tablet) 10 mg PO BEDTIME [facility] Last Admin: 12/24/24 20:28 Dose: 10 mg Cyclobenzaprine HCl (Cyclobenzaprine Hcl 10 Mg Tablet) 10 mg PO BID PRN PRN Reason: Muscle Spasm Last Admin: 12/24/24 20:28 Dose: 10 mg Diphenhydramine HCl (Diphenhydramine Hcl 25 Mg Capsule) 50 mg PO BID PRN PRN Reason: Anxiety Divalproex Sodium (Divalproex Sodium Er 500 Mg Tab.Er.24h) 1,000 mg PO BEDTIME [facility]ALIA Last Admin: 12/24/24 20:28 Dose: 1,000 mg Fluticasone Propionate (Fluticasone Propionate Nasal 16 Gm [place]) 1 spray NOSTRIL-B DAILY [facility] Last Admin: 12/25/24 09:34 Dose: 1 spray Fluticasone/Vilanterol (Fluticasone/Vilanterol 100/25 Blst.W.Dev) 1 puff INHALE RDAILY [facility] Last Admin: 12/25/24 09:20 Dose: 1 puff Haloperidol (Haloperidol 5 Mg Tablet) 7.5 mg PO BID [facility] Last Admin: 12/25/24 09:35 Dose: 7.5 mg Hydroxyzine HCl (Hydroxyzine Hcl 25 Mg Tablet) 25 mg PO Q6H PRN PRN Reason: mild anxiety Last Admin: 12/23/24 17:43 Dose: 25 mg Loratadine (Loratadine 10 Mg Tablet) 10 mg PO DAILY PRN PRN Reason: allergy symptoms Last Admin: 12/14/24 08:12 Dose: 10 mg Magnesium Hydroxide (Milk Of Magnesia 30 Ml Oral.Susp) 30 ml PO DAILY PRN PRN Reason: Constipation Meclizine HCl (Meclizine Hcl 12.5 Mg Tablet) 12.5 mg PO Q8H PRN PRN Reason: dizziness Last Admin: 12/24/24 09:24 Dose: 12.5 mg Montelukast Sodium (Montelukast Sodium 10 Mg Tablet) 10 mg PO DAILY [facility] Last Admin: 12/25/24 09:35 Dose: 10 mg Nicotine Polacrilex (Nicotine Polacrilex 2 Mg Gum) 4 mg BUCCAL Q2H PRN PRN Reason: Nicotine Cravings Olanzapine (Olanzapine Odt 10 Mg Tab.Rapdis) 10 mg TRANSLINGU BID [facility] Last Admin: 12/25/24 09:36 Dose: 10 mg Tiotropium [place] (Tiotropium [place] 2.5 Mcg 1 Puff/2.5 Mcg Mist.Inhal) 2 puff INHALE RDAILY [facility] Last Admin: 12/25/24 09:25 Dose: 2 puff Trazodone HCl (Trazodone Hcl 50 Mg Tablet) 50 mg PO BEDTIME MRX1 PRN PRN Reason: Insomnia Last Admin: 12/24/24 20:28 Dose: 50 mg Allergies Allergies Allergy/AdvReac Type Severity Reaction Status Date / Time animal dander (PET DANDER) Allergy Unknown Itching Verified 12/09/24 03:30 bee pollen (BEE STINGS) Allergy Unknown Swelling Verified 12/09/24 03:30 house dust Allergy Unknown Unknown Verified 12/09/24 03:30 shellfish derived (SHELLFISH Allergy Unknown Swelling Verified 12/09/24 03:30 DERIVED) Seasonal Allergies Allergy Itching Verified 12/09/24 03:30 Assessment & Plan Assessment & Plan (1) PTSD (post-traumatic stress disorder): Status: Acute Code(s): F43.10 - Post-traumatic stress disorder, unspecified (2) Schizoaffective disorder: Qualifiers: Schizoaffective disorder type: unspecified Qualified Code(s): F25.9 - Schizoaffective disorder, unspecified Status: Acute Code(s): F25.9 - Schizoaffective disorder, unspecified Plan 12/24: Continue regime Continue medical/oncology work up 12/25: Pt reports feeling tired. Continue tx Testing to continue 12/27. Reason for continued inpatient stay Substantial Risk for: med/psych decompensation Time Spent With Patient Time: Total time managing care of this patient today ____ minutes.
[2024-12-25 20:00] VITALS: BP 134/76; PULSE 88; TEMP 36.9; O2SAT 98
[2024-12-26 08:00] VITALS: BP 122/70; PULSE 84; TEMP 36.6; O2SAT 99
[2024-12-26] MEDS: OLANZapine ODT 10 MG TAB.RAPDIS TRANSLINGU ×2 (09:55→20:14)
[2024-12-26] MEDS: Tiotropium Bromide 2.5 mcg 1 PUFF/2.5 MCG MIST.INHAL 2 PUFF INHALE (09:58)
[2024-12-26] MEDS: Fluticasone/Vilanterol 100/25 BLST.W.DEV 1 PUFF INHALE (09:59)
--- NOTE | 2024-12-26 13:24 | P.PNPSI_ITS ---
Subjective Subjective Date of Service: 12/26/24 Reason For Visit: Schizoaffective disorder, bipolar type Subjective Notes: Conditional Voluntary Healthcare Proxy: No Guardianship: No Medical Problems Affecting Mental Status: No Interim History: Pt continues to be somewhat isolative, staying in bed, but awake and alert, asks if scans come back positive will we help her advocate to be treated. Pt was reassured we would advocate for her wishes and treatment choices. I think my family will support me, but I will need the hospital support as well. Attempted to reassure pt. Medication Compliance: Yes Side effects from medications: No Attending Groups: Intermittent Review of Systems Medical Review of Systems: unchanged Review of Systems Review of Systems Denies Mental Status Exam Mental Status Exam Patient Appearance: Appropriate Patient Orientation: Person, Place, Time and Situation Level of Consciousness: Alert Patient Behavior: Appropriate, Talkative, Cooperative and Good Eye Contact Mood Description: Apprehensive Affect Description: Apprehensive Patient Cognition Impaired: No Ability to Follow Directions: Good Speech Pattern: Spontaneous Speech Memory Description: Intact Hallucinations: None Delusions: Not Present Perceptual Disturbances: Derealization Thought Process: Intact and Goal Oriented Thought Content: positive for Intact (denies SI/HI ) and positive for Goal Oriented Depressive Symptoms: Thoughts of /Suicide (denies) Judgement: Good Judgement and Insight: reports feeling tired, yet apprehensive regarding upcoming tests on 12/27 (bone scan) Diagnostics Vital Signs (24Hr): Vital Signs - 24 hr 12/25/24 20:00 12/26/24 08:00 Temperature 98.4 F 98 F Pulse Rate 88 84 Blood Pressure 134/76 122/70 Pulse Oximetry 98 99 Oxygen Delivery Method Room Air Room Air BMI result Body Mass Index 41.4 Labs 12/23/24 08:03 12/23/24 08:03 Labs: Laboratory Results - last 48 hr 12/24/24 15:12 Lactate Dehydrogenase 99 L [id number] 2.23 Carcinoembryonic Ag 2.00 Imaging Radiology Impressions: ITS Impressions Head CT 12/22/24 19:14 IMPRESSION: Abnormal diploe bony calvarium. Consider calcium metabolic disorders versus lymphoproliferative disorder versus metastatic disease. Unknown etiology. No acute intracranial abnormality by CT. Electronically signed by: Amos Hendrix MD 12/23/2024 08:13 AM EDT Abdomen/Pelvis CT 12/24/24 11:43 IMPRESSION: Right external iliac lymphadenopathy and left pelvic borderline adenopathy. 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 Moderate stool is present throughout the colon. Electronically signed by: Sg Knox MD 12/24/2024 01:00 PM EDT RP Chest CT 12/24/24 11:43 IMPRESSION: Anterior superior mediastinal mass could represent thymoma, thymic neoplasm, lymphoma, or lymphadenopathy. Heterogeneous lytic lesion within the T8 vertebral body is concerning for metastatic disease or myeloma. Fleischner guidelines were followed. Electronically signed by: Sg Knox MD 12/24/2024 12:46 PM EDT RP Brain MRI 12/24/24 11:51 IMPRESSION: No acute or structural brain abnormality. Electronically signed by: Amos Hendrix MD 12/24/2024 12:52 PM EDT RP Medications Medications Current Medications Acetaminophen (Acetaminophen 325 Mg Tablet) 650 mg PO Q6H PRN PRN Reason: Headache/Pain, Scale 1-10 Last Admin: 12/12/24 14:21 Dose: 650 mg Al Hydroxide/Mg Hydroxide (Magnesium Hydrox/Alum Hydrox 30 Ml Oral.Susp) 30 ml PO Q6H PRN PRN Reason: Heartburn/Nausea Albuterol Sulfate (Albuterol Sulfate 90 Mcg 8 Gm Inhaler) 2 puff INHALE RQ6H PRN PRN Reason: Wheezing Last Admin: 12/21/24 16:12 Dose: 2 puff Atorvastatin Calcium (Atorvastatin Calcium 10 Mg Tablet) 10 mg PO BEDTIME NATALIA Last Admin: 12/25/24 20:47 Dose: 10 mg Cyclobenzaprine HCl (Cyclobenzaprine Hcl 10 Mg Tablet) 10 mg PO BID PRN PRN Reason: Muscle Spasm Last Admin: 12/26/24 09:55 Dose: 10 mg Diphenhydramine HCl (Diphenhydramine Hcl 25 Mg Capsule) 50 mg PO BID PRN PRN Reason: Anxiety Divalproex Sodium (Divalproex Sodium Er 500 Mg Tab.Er.24h) 1,000 mg PO BEDTIME NATALIA Last Admin: 12/25/24 20:47 Dose: 1,000 mg Fluticasone Propionate (Fluticasone Propionate Nasal 16 Gm [place]) 1 spray NOSTRIL-B DAILY [facility] Last Admin: 12/26/24 09:56 Dose: 1 spray Fluticasone/Vilanterol (Fluticasone/Vilanterol 100/25 Blst.W.Dev) 1 puff INHALE RDAILY [facility] Last Admin: 12/26/24 09:59 Dose: 1 puff Haloperidol (Haloperidol 5 Mg Tablet) 7.5 mg PO BID [facility] Last Admin: 12/26/24 09:55 Dose: 7.5 mg Hydroxyzine HCl (Hydroxyzine Hcl 25 Mg Tablet) 25 mg PO Q6H PRN PRN Reason: mild anxiety Last Admin: 12/23/24 17:43 Dose: 25 mg Loratadine (Loratadine 10 Mg Tablet) 10 mg PO DAILY PRN PRN Reason: allergy symptoms Last Admin: 12/14/24 08:12 Dose: 10 mg Magnesium Hydroxide (Milk Of Magnesia 30 Ml Oral.Susp) 30 ml PO DAILY PRN PRN Reason: Constipation Meclizine HCl (Meclizine Hcl 12.5 Mg Tablet) 12.5 mg PO Q8H PRN PRN Reason: dizziness Last Admin: 12/26/24 09:55 Dose: 12.5 mg Montelukast Sodium (Montelukast Sodium 10 Mg Tablet) 10 mg PO DAILY [facility] Last Admin: 12/26/24 09:55 Dose: 10 mg Nicotine Polacrilex (Nicotine Polacrilex 2 Mg Gum) 4 mg BUCCAL Q2H PRN PRN Reason: Nicotine Cravings Olanzapine (Olanzapine Odt 10 Mg Tab.Rapdis) 10 mg TRANSLINGU BID [facility] Last Admin: 12/26/24 09:55 Dose: 10 mg Tiotropium [place] (Tiotropium [place] 2.5 Mcg 1 Puff/2.5 Mcg Mist.Inhal) 2 puff INHALE RDAILY [facility] Last Admin: 12/26/24 09:58 Dose: 2 puff Trazodone HCl (Trazodone Hcl 50 Mg Tablet) 50 mg PO BEDTIME MRX1 PRN PRN Reason: Insomnia Last Admin: 12/25/24 20:47 Dose: 50 mg Allergies Allergies Allergy/AdvReac Type Severity Reaction Status Date / Time animal dander (PET DANDER) Allergy Unknown Itching Verified 12/09/24 03:30 bee pollen (BEE STINGS) Allergy Unknown Swelling Verified 12/09/24 03:30 house dust Allergy Unknown Unknown Verified 12/09/24 03:30 shellfish derived (SHELLFISH Allergy Unknown Swelling Verified 12/09/24 03:30 DERIVED) Seasonal Allergies Allergy Itching Verified 12/09/24 03:30 Assessment & Plan Assessment & Plan (1) PTSD (post-traumatic stress disorder): Status: Acute Code(s): F43.10 - Post-traumatic stress disorder, unspecified (2) Schizoaffective disorder: Qualifiers: Schizoaffective disorder type: unspecified Qualified Code(s): F25.9 - Schizoaffective disorder, unspecified Status: Acute Code(s): F25.9 - Schizoaffective disorder, unspecified Plan 12/24: Continue regime Continue medical/oncology work up 12/26: Continue tx Reason for continued inpatient stay Substantial Risk for: rapid decompensation and med/psych decompensation Time Spent With Patient Time: Total time managing care of this patient today ____ minutes.
[2024-12-26 14:03] LABS: Kappa/Lambda Lt Ch Free Ratio 1.17 (0.26-1.65)
[2024-12-26 19:39] VITALS: BP 115/78; PULSE 107; TEMP 37.2; O2SAT 97
[2024-12-27 08:00] VITALS: BP 88/62; PULSE 77; RESP 18; TEMP 36.4; O2SAT 98
[2024-12-27] MEDS: OLANZapine ODT 10 MG TAB.RAPDIS TRANSLINGU ×2 (08:55→20:15)
[2024-12-27] MEDS: Tiotropium Bromide 2.5 mcg 1 PUFF/2.5 MCG MIST.INHAL 2 PUFF INHALE (08:57)
--- NOTE | 2024-12-27 18:25 | HO.PSYCHPN ---
Subjective Subjective Date of Service: 12/27/24 Reason For Visit: Schizoaffective disorder, bipolar type Subjective Notes: Conditional Voluntary Healthcare Proxy: No Guardianship: No Medical Problems Affecting Mental Status: No Interim History: Bone Scan completed. Pt discussed feeling prepared for discharge She is apprehensive about testing results and plans when results are known. She denies SI,HI,AH, VH She reports regime to be effective and without adverse effects or sedation. She does report increased time resting due to the amount of testing she has had. Medication Compliance: Yes Side effects from medications: No Attending Groups: Intermittent Review of Systems Medical Review of Systems: unchanged Review of Systems Review of Systems Pt denies Mental Status Exam Mental Status Exam Patient Appearance: Appropriate Patient Orientation: Person, Place, Time and Situation Level of Consciousness: Alert Patient Behavior: Appropriate, Talkative, Cooperative and Good Eye Contact Mood Description: Apprehensive Affect Description: Apprehensive Patient Cognition Impaired: No Ability to Follow Directions: Good Speech Pattern: Spontaneous Speech Memory Description: Intact Hallucinations: None Delusions: Not Present Perceptual Disturbances: Derealization Thought Process: Intact and Goal Oriented Thought Content: positive for Intact (denies SI/HI ) and positive for Goal Oriented Depressive Symptoms: Thoughts of /Suicide (denies) Judgement: Good Judgement and Insight: reports feeling tired, yet apprehensive regarding upcoming tests on 12/27 (bone scan) Diagnostics Vital Signs (24Hr): Vital Signs - 24 hr 12/26/24 19:39 12/27/24 08:00 Temperature 98.9 F 97.6 F Pulse Rate 107 H 77 Respiratory Rate 18 Blood Pressure 115/78 88/62 L Pulse Oximetry 97 98 Oxygen Delivery Method Room Air Room Air BMI result Body Mass Index 41.4 Labs 12/23/24 08:03 12/23/24 08:03 Labs: Laboratory Results - last 48 hr 12/24/24 15:12 Free [place] LC, Quant 25.9 H Free [place] LC, Quant 22.1 Free [place]/Lambda Ratio 1.17 Imaging Radiology Impressions: ITS Impressions Head CT 12/22/24 19:14 IMPRESSION: Abnormal diploe bony calvarium. Consider calcium metabolic disorders versus lymphoproliferative disorder versus metastatic disease. Unknown etiology. No acute intracranial abnormality by CT. Electronically signed by: Amos Hendrix MD 12/23/2024 08:13 AM EDT Abdomen/Pelvis CT 12/24/24 11:43 IMPRESSION: Right external iliac lymphadenopathy and left pelvic borderline adenopathy. 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 Moderate stool is present throughout the colon. Electronically signed by: Sg Knox MD 12/24/2024 01:00 PM EDT RP Chest CT 12/24/24 11:43 IMPRESSION: Anterior superior mediastinal mass could represent thymoma, thymic neoplasm, lymphoma, or lymphadenopathy. Heterogeneous lytic lesion within the T8 vertebral body is concerning for metastatic disease or myeloma. Fleischner guidelines were followed. Electronically signed by: Sg Knox MD 12/24/2024 12:46 PM EDT RP Brain MRI 12/24/24 11:51 IMPRESSION: No acute or structural brain abnormality. Electronically signed by: Amos Hendrix MD 12/24/2024 12:52 PM EDT RP Bone Scan Nuclear Medicine 12/27/24 12:35 IMPRESSION: No focal abnormality is seen in the thoracic spine or skull to correspond to the lytic foci noted on prior imaging. Bone scan is insensitive to detection of multiple myeloma, and if this is a clinical concern, laboratory evaluation and PET/CT scan are recommended. Electronically signed by: Kendall Callejas MD 12/27/2024 03:04 PM EDT RP Medications Medications Current Medications Acetaminophen (Acetaminophen 325 Mg Tablet) 650 mg PO Q6H PRN PRN Reason: Headache/Pain, Scale 1-10 Last Admin: 12/12/24 14:21 Dose: 650 mg Al Hydroxide/Mg Hydroxide (Magnesium Hydrox/Alum Hydrox 30 Ml Oral.Susp) 30 ml PO Q6H PRN PRN Reason: Heartburn/Nausea Albuterol Sulfate (Albuterol Sulfate 90 Mcg 8 Gm Inhaler) 2 puff INHALE RQ6H PRN PRN Reason: Wheezing Last Admin: 12/21/24 16:12 Dose: 2 puff Atorvastatin Calcium (Atorvastatin Calcium 10 Mg Tablet) 10 mg PO BEDTIME NATALIA Last Admin: 12/26/24 20:14 Dose: 10 mg Cyclobenzaprine HCl (Cyclobenzaprine Hcl 10 Mg Tablet) 10 mg PO BID PRN PRN Reason: Muscle Spasm Last Admin: 12/27/24 08:54 Dose: 10 mg Diphenhydramine HCl (Diphenhydramine Hcl 25 Mg Capsule) 50 mg PO BID PRN PRN Reason: Anxiety Divalproex Sodium (Divalproex Sodium Er 500 Mg Tab.Er.24h) 1,000 mg PO BEDTIME [facility] Last Admin: 12/26/24 20:13 Dose: 1,000 mg Fluticasone Propionate (Fluticasone Propionate Nasal 16 Gm [place]) 1 spray NOSTRIL-B DAILY [facility] Last Admin: 12/27/24 08:56 Dose: 1 spray Fluticasone/Vilanterol (Fluticasone/Vilanterol 100/25 Blst.W.Dev) 1 puff INHALE RDAILY [facility] Last Admin: 12/27/24 08:57 Dose: Not Given Haloperidol (Haloperidol 5 Mg Tablet) 7.5 mg PO BID [facility] Last Admin: 12/27/24 08:55 Dose: 7.5 mg Hydroxyzine HCl (Hydroxyzine Hcl 25 Mg Tablet) 25 mg PO Q6H PRN PRN Reason: mild anxiety Last Admin: 12/23/24 17:43 Dose: 25 mg Loratadine (Loratadine 10 Mg Tablet) 10 mg PO DAILY PRN PRN Reason: allergy symptoms Last Admin: 12/14/24 08:12 Dose: 10 mg Magnesium Hydroxide (Milk Of Magnesia 30 Ml Oral.Susp) 30 ml PO DAILY PRN PRN Reason: Constipation Meclizine HCl (Meclizine Hcl 12.5 Mg Tablet) 12.5 mg PO Q8H PRN PRN Reason: dizziness Last Admin: 12/27/24 08:55 Dose: 12.5 mg Montelukast Sodium (Montelukast Sodium 10 Mg Tablet) 10 mg PO DAILY [facility] Last Admin: 12/27/24 08:55 Dose: 10 mg Nicotine Polacrilex (Nicotine Polacrilex 2 Mg Gum) 4 mg BUCCAL Q2H PRN PRN Reason: Nicotine Cravings Olanzapine (Olanzapine Odt 10 Mg Tab.Rapdis) 10 mg TRANSLINGU BID [facility] Last Admin: 12/27/24 08:55 Dose: 10 mg Tiotropium [place] (Tiotropium [place] 2.5 Mcg 1 Puff/2.5 Mcg Mist.Inhal) 2 puff INHALE RDAILY [facility] Last Admin: 12/27/24 08:57 Dose: 2 puff Trazodone HCl (Trazodone Hcl 50 Mg Tablet) 50 mg PO BEDTIME MRX1 PRN PRN Reason: Insomnia Last Admin: 12/26/24 20:14 Dose: 50 mg Allergies Allergies Allergy/AdvReac Type Severity Reaction Status Date / Time animal dander (PET DANDER) Allergy Unknown Itching Verified 12/09/24 03:30 bee pollen (BEE STINGS) Allergy Unknown Swelling Verified 12/09/24 03:30 house dust Allergy Unknown Unknown Verified 12/09/24 03:30 shellfish derived (SHELLFISH Allergy Unknown Swelling Verified 12/09/24 03:30 DERIVED) Seasonal Allergies Allergy Itching Verified 12/09/24 03:30 Assessment & Plan Assessment & Plan (1) PTSD (post-traumatic stress disorder): Status: Acute Code(s): F43.10 - Post-traumatic stress disorder, unspecified (2) Schizoaffective disorder: Qualifiers: Schizoaffective disorder type: unspecified Qualified Code(s): F25.9 - Schizoaffective disorder, unspecified Status: Acute Code(s): F25.9 - Schizoaffective disorder, unspecified Plan 12/24: Continue regime Continue medical/oncology work up 12/26: Continue tx 12/27: Pt preparing for discharge this week to [facility]. At this time, diagnostics appear negative, so pt continues to make plans with her [facility] team to transfer. Reason for continued inpatient stay Substantial Risk for: rapid decompensation and med/psych decompensation Time Spent With Patient Time: Total time managing care of this patient today ____ minutes.
[2024-12-27 20:00] VITALS: BP 131/71; PULSE 107; TEMP 36.9; O2SAT 100
--- NOTE | 2024-12-27 22:56 | PM.EVENT ---
Event Note Date of Service: 12/27/24 Event Note: Follow up for pt admitted to [facility] unit after CT of chest found nonspecific T8 lytic lesion concerning for multiple myeloma or metastatic disease. Bone scan ordered to evaluate for calvarial lesions, and was negative without focal abnormality in thoracic spine or skull to correspond to findings on CT of chest. Oncology consulted who note pt without signs or symptoms of malignancy, and blood work so far not indicative of multiple myeloma. Serum immunofixation still pending. Unless positive, pt shoud follow up with repeat imgaing of CT of chest in 3 months. Time Spent With Patient Time: Total time managing care of this patient today ____ minutes.
[2024-12-28 08:00] VITALS: BP 129/74; PULSE 86; RESP 18; TEMP 36.8; O2SAT 95
[2024-12-28] MEDS: OLANZapine ODT 10 MG TAB.RAPDIS TRANSLINGU ×2 (09:10→20:46)
[2024-12-28] MEDS: Tiotropium Bromide 2.5 mcg 1 PUFF/2.5 MCG MIST.INHAL 2 PUFF INHALE (09:14)
[2024-12-28] MEDS: Fluticasone/Vilanterol 100/25 BLST.W.DEV 1 PUFF INHALE (09:14)
--- NOTE | 2024-12-28 10:38 | P.PNPSI_ITS ---
Subjective Subjective Date of Service: 12/28/24 Reason For Visit: Schizoaffective disorder, bipolar type Subjective Notes: Conditional Voluntary Healthcare Proxy: No Guardianship: No Medical Problems Affecting Mental Status: No Interim History: Pt planning to discharge 12/29 to [facility]. She reports feeling ready to transition. Diagnostics thus far are negative, results which she is pleased with. Medication Compliance: Yes Side effects from medications: No Attending Groups: Intermittent Review of Systems Review of Systems Denies Mental Status Exam Mental Status Exam Patient Appearance: Fatigued and Appropriate Patient Orientation: Person, Place, Time and Situation Level of Consciousness: Alert Patient Behavior: Appropriate, Talkative, Cooperative and Good Eye Contact Mood Description: Apprehensive Affect Description: Apprehensive Patient Cognition Impaired: No Ability to Follow Directions: Good Speech Pattern: Spontaneous Speech Memory Description: Intact Hallucinations: None Delusions: Not Present Perceptual Disturbances: Derealization Thought Process: Intact and Goal Oriented Thought Content: positive for Intact (denies SI/HI ) and positive for Goal Oriented Depressive Symptoms: Thoughts of /Suicide (denies) Judgement: Good Judgement and Insight: reports feeling tired, yet apprehensive regarding upcoming tests on 12/27 (bone scan) Diagnostics Vital Signs (24Hr): Vital Signs - 24 hr 12/27/24 20:00 12/28/24 08:00 Temperature 98.4 F 98.2 F Pulse Rate 107 H 86 Respiratory Rate 18 Blood Pressure 131/71 129/74 Pulse Oximetry 100 95 Oxygen Delivery Method Room Air Room Air BMI result Body Mass Index 41.4 Labs 12/23/24 08:03 12/23/24 08:03 Labs: Laboratory Results - last 48 hr 12/24/24 15:12 Free [place] LC, Quant 25.9 H Free [place]ambda LC, Quant 22.1 Free [place]/Lambda Ratio 1.17 Imaging Radiology Impressions: ITS Impressions Head CT 12/22/24 19:14 IMPRESSION: Abnormal diploe bony calvarium. Consider calcium metabolic disorders versus lymphoproliferative disorder versus metastatic disease. Unknown etiology. No acute intracranial abnormality by CT. Electronically signed by: Amos Hendrix MD 12/23/2024 08:13 AM EDT Abdomen/Pelvis CT 12/24/24 11:43 IMPRESSION: Right external iliac lymphadenopathy and left pelvic borderline adenopathy. 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 Moderate stool is present throughout the colon. Electronically signed by: Sg Knox MD 12/24/2024 01:00 PM EDT RP Chest CT 12/24/24 11:43 IMPRESSION: Anterior superior mediastinal mass could represent thymoma, thymic neoplasm, lymphoma, or lymphadenopathy. Heterogeneous lytic lesion within the T8 vertebral body is concerning for metastatic disease or myeloma. Fleischner guidelines were followed. Electronically signed by: Sg Knox MD 12/24/2024 12:46 PM EDT RP Brain MRI 12/24/24 11:51 IMPRESSION: No acute or structural brain abnormality. Electronically signed by: Amos Hendrix MD 12/24/2024 12:52 PM EDT RP Bone Scan Nuclear Medicine 12/27/24 12:35 IMPRESSION: No focal abnormality is seen in the thoracic spine or skull to correspond to the lytic foci noted on prior imaging. Bone scan is insensitive to detection of multiple myeloma, and if this is a clinical concern, laboratory evaluation and PET/CT scan are recommended. Electronically signed by: Kendall Callejas MD 12/27/2024 03:04 PM EDT RP Medications Medications Current Medications Acetaminophen (Acetaminophen 325 Mg Tablet) 650 mg PO Q6H PRN PRN Reason: Headache/Pain, Scale 1-10 Last Admin: 12/12/24 14:21 Dose: 650 mg Al Hydroxide/Mg Hydroxide (Magnesium Hydrox/Alum Hydrox 30 Ml Oral.Susp) 30 ml PO Q6H PRN PRN Reason: Heartburn/Nausea Albuterol Sulfate (Albuterol Sulfate 90 Mcg 8 Gm Inhaler) 2 puff INHALE RQ6H PRN PRN Reason: Wheezing Last Admin: 12/21/24 16:12 Dose: 2 puff Atorvastatin Calcium (Atorvastatin Calcium 10 Mg Tablet) 10 mg PO BEDTIME NATALIA Last Admin: 12/27/24 20:15 Dose: 10 mg Cyclobenzaprine HCl (Cyclobenzaprine Hcl 10 Mg Tablet) 10 mg PO BID PRN PRN Reason: Muscle Spasm Last Admin: 12/28/24 09:10 Dose: 10 mg Diphenhydramine HCl (Diphenhydramine Hcl 25 Mg Capsule) 50 mg PO BID PRN PRN Reason: Anxiety Divalproex Sodium (Divalproex Sodium Er 500 Mg Tab.Er.24h) 1,000 mg PO BEDTIME [facility] Last Admin: 12/27/24 20:15 Dose: 1,000 mg Fluticasone Propionate (Fluticasone Propionate Nasal 16 Gm [place]) 1 spray NOSTRIL-B DAILY [facility] Last Admin: 12/28/24 09:13 Dose: 1 spray Fluticasone/Vilanterol (Fluticasone/Vilanterol 100/25 Blst.W.Dev) 1 puff INHALE RDAILY [facility] Last Admin: 12/28/24 09:14 Dose: 1 puff Haloperidol (Haloperidol 5 Mg Tablet) 7.5 mg PO BID [facility] Last Admin: 12/28/24 09:11 Dose: 7.5 mg Hydroxyzine HCl (Hydroxyzine Hcl 25 Mg Tablet) 25 mg PO Q6H PRN PRN Reason: mild anxiety Last Admin: 12/23/24 17:43 Dose: 25 mg Loratadine (Loratadine 10 Mg Tablet) 10 mg PO DAILY PRN PRN Reason: allergy symptoms Last Admin: 12/14/24 08:12 Dose: 10 mg Magnesium Hydroxide (Milk Of Magnesia 30 Ml Oral.Susp) 30 ml PO DAILY PRN PRN Reason: Constipation Meclizine HCl (Meclizine Hcl 12.5 Mg Tablet) 12.5 mg PO Q8H PRN PRN Reason: dizziness Last Admin: 12/28/24 09:12 Dose: 12.5 mg Montelukast Sodium (Montelukast Sodium 10 Mg Tablet) 10 mg PO DAILY [facility] Last Admin: 12/28/24 09:11 Dose: 10 mg Nicotine Polacrilex (Nicotine Polacrilex 2 Mg Gum) 4 mg BUCCAL Q2H PRN PRN Reason: Nicotine Cravings Olanzapine (Olanzapine Odt 10 Mg Tab.Rapdis) 10 mg TRANSLINGU BID [facility] Last Admin: 12/28/24 09:10 Dose: 10 mg Tiotropium Bureau (Tiotropium Bureau 2.5 Mcg 1 Puff/2.5 Mcg Mist.Inhal) 2 puff INHALE RDAILY [facility] Last Admin: 12/28/24 09:14 Dose: 2 puff Trazodone HCl (Trazodone Hcl 50 Mg Tablet) 50 mg PO BEDTIME MRX1 PRN PRN Reason: Insomnia Last Admin: 12/26/24 20:14 Dose: 50 mg Allergies Allergies Allergy/AdvReac Type Severity Reaction Status Date / Time animal dander (PET DANDER) Allergy Unknown Itching Verified 12/09/24 03:30 bee pollen (BEE STINGS) Allergy Unknown Swelling Verified 12/09/24 03:30 house dust Allergy Unknown Unknown Verified 12/09/24 03:30 shellfish derived (SHELLFISH Allergy Unknown Swelling Verified 12/09/24 03:30 DERIVED) Seasonal Allergies Allergy Itching Verified 12/09/24 03:30 Assessment & Plan Assessment & Plan (1) PTSD (post-traumatic stress disorder): Status: Acute Code(s): F43.10 - Post-traumatic stress disorder, unspecified (2) Schizoaffective disorder: Qualifiers: Schizoaffective disorder type: unspecified Qualified Code(s): F25.9 - Schizoaffective disorder, unspecified Status: Acute Code(s): F25.9 - Schizoaffective disorder, unspecified Plan 12/24: Continue regime Continue medical/oncology work up 12/26: Continue tx 12/28: Discharge 12/29 to [facility] Reason for continued inpatient stay Substantial Risk for: stable for discharge Time Spent With Patient Time: Total time managing care of this patient today ____ minutes.
[2024-12-28 20:00] VITALS: BP 130/77; PULSE 103; TEMP 36.3; O2SAT 97
[2024-12-29 08:00] VITALS: BP 159/85; PULSE 84; RESP 18; TEMP 36.6; O2SAT 96
[2024-12-29] MEDS: Fluticasone/Vilanterol 100/25 BLST.W.DEV 1 PUFF INHALE (08:36)
[2024-12-29] MEDS: Tiotropium Bromide 2.5 mcg 1 PUFF/2.5 MCG MIST.INHAL 2 PUFF INHALE (08:36)
[2024-12-29] MEDS: OLANZapine ODT 10 MG TAB.RAPDIS TRANSLINGU (08:37)
--- NOTE | 2024-12-29 09:06 | P.DS_ITS ---
DS: Providers Provider Date of Service: 12/29/24 Date of admission: 12/09/24 13:37 Date of discharge: 12/29/24 Primary care physician: Unknown Physician Admitting clinician: Noelle Whitt Attending physician on admission: Malik Amaya Consults: 12/23/24 11:29 Consult to Hospitalist Routine Comment: Consulting Provider: [facility] Hospitalists Reason For Exam: diagnostic results-?myeloma, ?need for oncology 12/23/24 21:47 Consult to Hematology / Oncology Routine Consulting Provider: [facility] Oncology/Hematology Reason for consultation: Abnormal CT of the head with lytic lesions Attending physician on discharge: Malik Amaya Discharging clinician: Debbi Koroma DS: Diagnosis Discharge Diagnosis (1) PTSD (post-traumatic stress disorder): Status: Acute (2) Schizoaffective disorder: Status: Acute DS: Medications Discharge Medications Home Medications: Previous Rx's ?Medication ?Instructions ?Recorded acetaminophen 325 mg tablet 650 mg (2 x 325 mg) PO Q6H PRN 12/28/24 Headache/Pain, Scale 1-10 #0 tabs albuterol sulfate 90 mcg/actuation 2 puff inhalation Q ID PRN 12/28/24 aerosol inhaler (Ventolin HFA) Shortness Of Breath 30 days #1 inhaler atorvastatin 10 mg tablet 10 mg PO BEDTIME 30 days #30 tabs 12/28/24 cetirizine 10 mg tablet 10 mg PO DAILY PRN Allergy 0 12/28/24 Symptoms 30 days #30 tabs diphenhydramine HCl 25 mg capsule 50 mg (2 x 25 mg) PO BID PRN 12/28/24 (Banophen) Anxiety #60 caps divalproex 500 mg tablet,extended 1,000 mg (2 x 500 mg ) PO BEDTIME 12/28/24 release 24 hr #60 tabs fluticasone furoate 100 1 inh inhalation RDAILY 30 d ays #1 12/28/24 mcg-vilanterol 25 mcg/dose inhaler inhalation powder (Breo Ellipta) fluticasone propionate 50 1 spray intranasal DAILY 30 days 12/28/24 mcg/actuation nasal #1 inhaler spray,suspension haloperidol 5 mg tablet 7.5 mg (1.5 x 5 mg) PO BID # 90 tabs 12/28/24 hydroxyzine HCl 25 mg tablet 25 mg PO Q6H PRN mild anx iety #60 12/28/24 tabs meclizine 12.5 mg tablet 12.5 mg PO Q8H PRN dizziness #60 12/28/24 tabs montelukast 10 mg tablet 10 mg PO DAILY #30 tabs 12/04 10/27 olanzapine 10 mg tablet 10 mg PO BID Agitation 30 da ys #60 12/28/24 tabs tiotropium bromide 2.5 2 puff inhalation RDAILY #4 grams 12/28/24 mcg/actuation mist for inhalation (Spiriva Respimat) trazodone 50 mg tablet 50 mg PO BEDTIME PRN insomni a #30 12/28/24 tabs Mental Status Exam Mental Status Exam Patient Appearance: Fatigued and Appropriate Patient Orientation: Person, Place, Time and Situation Level of Consciousness: Alert Patient Behavior: Appropriate, Talkative, Cooperative and Good Eye Contact Mood Description: Apprehensive Affect Description: Apprehensive Patient Cognition Impaired: No Ability to Follow Directions: Good Speech Pattern: Spontaneous Speech Memory Description: Intact Hallucinations: None Delusions: Not Present Perceptual Disturbances: Derealization Thought Process: Intact and Goal Oriented Thought Content: positive for Intact (denies SI/HI ) and positive for Goal Oriented Depressive Symptoms: Thoughts of /Suicide (denies) Judgement: Good Data Data Completed and Pending Completed studies during hospitalization [Text1]: 12/23/24 12/24/24 08:03 15:12 WBC 5.6 RBC 4.19 L Hgb 12.2 Hct 36.5 L MCV 87.1 MCH 29.1 MCHC 33.4 RDW 12.1 Plt Count 301 MPV 8.9 L Immature Gran % (Auto) 0.5 H Neut % (Auto) 57.5 Lymph % (Auto) 33.1 [place] % (Auto) 5.9 Eos % (Auto) 2.3 Baso % (Auto) 0.7 Lymph # (Auto) 1.9 [place] # (Auto) 0.3 Eos # (Auto) 0.1 Baso # (Auto) 0.0 Abs Immat Gran (auto) 0.03 Absolute Neuts (auto) 3.2 Absolute Nucleated RBC 0.000 Nucleated RBC % (auto) 0.0 Sodium 139 Potassium 4.2 Chloride 105 Carbon Dioxide 28 Anion Gap 10 L BUN 20 H Creatinine 0.62 Estim Creat Clear Calc 132.3 Estimated GFR > 60 Random Glucose 77 Calcium 9.4 Total Bilirubin 0.3 AST 20 ALT 20 Alkaline Phosphatase 89 Lactate Dehydrogenase 99 L Total Protein 7.1 Albumin 4.1 Pmho-5-Nftffzoflvlsg 2.23 Carcinoembryonic Ag 2.00 Valproic Acid 42.6 L IgG Total 1133 IgA Total 279 IgM 127 ROLANDO Interpretation SEE NOTE Free [place] LC, Quant 25.9 H Free Lambda LC, Quant 22.1 Free [place]/Lambda Ratio 1.17 12/09/24 Unknown Urine clean catch - Clean Catch Midstream Urine Culture - Final Imaging Diagnostic Imaging Impressions Head CT 12/22/24 19:14 IMPRESSION: Abnormal diploe bony calvarium. Consider calcium metabolic disorders versus lymphoproliferative disorder versus metastatic disease. Unknown etiology. No acute intracranial abnormality by CT. Electronically signed by: Amos Hendrix MD 12/23/2024 08:13 AM EDT RP Abdomen/Pelvis CT 12/24/24 11:43 IMPRESSION: Right external iliac lymphadenopathy and left pelvic borderline adenopathy. 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 Moderate stool is present throughout the colon. Electronically signed by: Sg Knox MD 12/24/2024 01:00 PM EDT RP Chest CT 12/24/24 11:43 IMPRESSION: Anterior superior mediastinal mass could represent thymoma, thymic neoplasm, lymphoma, or lymphadenopathy. Heterogeneous lytic lesion within the T8 vertebral body is concerning for metastatic disease or myeloma. Fleischner guidelines were followed. Electronically signed by: Sg Knox MD 12/24/2024 12:46 PM EDT RP Brain MRI 12/24/24 11:51 IMPRESSION: No acute or structural brain abnormality. Electronically signed by: Amos Hendrix MD 12/24/2024 12:52 PM EDT RP Bone Scan Nuclear Medicine 12/27/24 12:35 IMPRESSION: No focal abnormality is seen in the thoracic spine or skull to correspond to the lytic foci noted on prior imaging. Bone scan is insensitive to detection of multiple myeloma, and if this is a clinical concern, laboratory evaluation and PET/CT scan are recommended. Electronically signed by: Kendall Callejas MD 12/27/2024 03:04 PM EDT DS: Summary Hospital Course Hospital Course: Admission to adult psychiatry for exacerbation of schizoaffective disorder, PTSD, alcohol use disorder, autism and stress of being homeless. Pt with SI on admit, identified that she has not enough community supports and needs more help. Medications were evaluated and adjusted. Pt was followed by hospitalist team and completed an eval for myeloma which was negative at this time. Pt was offered full milieu to assist her in strengthening coping skills. Pt allowed team to submit a [facility] application. She was accepted for services as a result. Pt stabilized and will discharge with [facility] to [facility]. He will continue with [facility] for out pt and have VNA to assist her with medications. Status at Discharge Functional status at discharge: independent ambulation Overall status at discharge: patient is back to baseline Time Spent with Patient Time attestation: Total time managing care of this patient today ____ minutes. Time spent: Less than 30 minutes Discharge Plan Discharge Anticipated Discharge Date/Time: 12/29/24 12:00 Patient Disposition: Xfer Other Discharge Diagnosis: PTSD Schizoaffective Disorder Alcohol use disorder Referrals: [facility] [Other] - 12/29/24 11:30 am Referral Note: Sam[place] [facility] [place] [facility] [place] and can stay there for up to two years. Social work has advocated for Samaria to have [facility] [place] [facility] [place]. Rubina Luna [facility] [Other] - 3-5 Days Referral Note: Rubina will continue to follow Samaria in the community and support her with connecting her to community based supports including follow up with any appropriate mental health providers. Tay Logan RN [Other] - 1 Week Referral Note: fax [phone] Follow up on referral made to Tay Logan RN for medication assistance. They will try to start ashley- ? 12/31/24 [facility] Intake with Kim Medina [Other] - 01/07/25 10:00 am Referral Note: This appointment is in-person. [facility] Substance Use Case Management w Trinidad Burt [Other] - 01/07/25 9:30 am Referral Note: This appointment is in-person and will precede your intake. [facility] Psychiatry with Balbina Avila [Other] - 01/11/25 2:00 pm Referral Note: This appointment is via Telehealth. Roxie Guevara MD [Physician, Internal Medicine] - 1 Week Referral Note: They will call you to schedule your appointment. Discharge Medications: New diphenhydramine HCl [Banophen] 25 mg Capsule 50 mg PO BID PRN (Reason: Anxiety) Qty: 60 0RF Spiriva Respimat 2.5 mcg/actuation Mist 2 puff inhalation RDAILY Qty: 4 0RF acetaminophen 325 mg Tablet 650 mg PO Q6H PRN (Reason: Headache/Pain, Scale 1-10) Qty: 0 0RF haloperidol 5 mg Tablet 7.5 mg PO BID Qty: 90 0RF meclizine 12.5 mg Tablet 12.5 mg PO Q8H PRN (Reason: dizziness) Qty: 60 0RF divalproex 500 mg Tablet Extended Release 24 Hr 1,000 mg PO BEDTIME Qty: 60 0RF montelukast 10 mg Tablet 10 mg PO DAILY Qty: 30 0RF hydroxyzine HCl 25 mg Tablet 25 mg PO Q6H PRN (Reason: mild anxiety) Qty: 60 0RF Continued trazodone 50 mg tablet 50 mg PO BEDTIME PRN (Reason: insomnia) Qty: 30 0RF cetirizine 10 mg Tablet 10 mg PO DAILY PRN (Reason: Allergy Symptoms) 30 Days Qty: 30 0RF atorvastatin 10 mg Tablet 10 mg PO BEDTIME 30 Days Qty: 30 0RF olanzapine 10 mg Tablet 10 mg PO BID 30 Days Qty: 60 0RF albuterol sulfate [Ventolin HFA] 90 mcg/actuation Hfa Aerosol Inhaler 2 puff inhalation QID PRN (Reason: Shortness Of Breath) 30 Days Qty: 1 0RF fluticasone propionate 50 mcg/actuation [place],Suspension 1 spray INTRANASAL DAILY 30 Days Qty: 1 0RF Rx Instructions: administer into each nostril fluticasone furoate-vilanterol [Breo Ellipta] 100-25 mcg/dose Blister With Device 1 inh inhalation RDAILY 30 Days Qty: 1 0RF Discontinued haloperidol 5 mg Tablet 7.5 mg PO BID 30 Days Qty: 21 4RF divalproex 500 mg tablet extended release 24 hr 500 mg PO DAILY Banophen tablet 25 mg PO zinc tablet 50 mg PO Macrobid 100 mg meclizine 12.5 mg PO melatonin 10 mg PO BEDTIME Discharge Orders: Discharge Order (Routine); Ordered 12/29/24 Ordered By: Debbi Koroma Diet: Advance to usual diet Activity on Discharge: As tolerated Stand Alone Forms: Patient Portal Discharge page, Community Support Print Language: Yakut Care Plan Goals: Mood and Behavioral Stabilization Health Concerns: Mood and Behavioral Stabilization Plan of Treatment: Attend scheduled appointments Take medications as directed Assessment: Pt agrees with her plan of care. Denies SI,HI,AH, VH No sx of acute psychosis, tejinder Discharge Date/Time: 12/29/24 11:40
== END 2024-12-29 11:40 | disposition other institution (70) | DRG 885 ==
LOC: HO.ED 07:44 → HO.PM5 13:38
PROVIDERS: Internal Medicine; Admitting Provider Clinical Nurse Specialist Psychiatric/Mental Health, Adult; Emergency Provider Emergency Medicine; Visit Provider Clinical Nurse Specialist Psychiatric/Mental Health, Adult
DX: F25.0 Schizoaffective disorder, bipolar type (principal); F43.10 Post-traumatic stress disorder, unspecified; F10.90 Alcohol use, unspecified, uncomplicated; R93.0 Abnormal findings on diagnostic imaging of skull and head, not elsewhere classified; F84.0 Autistic disorder; F17.210 Nicotine dependence, cigarettes, uncomplicated; Z71.6 Tobacco abuse counseling; Z79.899 Other long term (current) drug therapy
CPT/HCPCS: 36415; 70260; 70450; 70551; 71046; 71260; 74018; 74177; 78306; 80053; 80061; 80143; 80164; 80179; 80307; 81001; 81025; 82232; 82378; 82607; 82746; 82784; 83036; 83521; 83615; 83735; 84439; 84443; 85025; 86334; 87086; 95816; 99285; 99499; A9503; Q9967; S9485

== ENCOUNTER 2024-12-09 13:37 | Outpatient (BNV) | payer MEDICARE, MEDICAID, SELFPAY | END 2024-12-27 12:35 | PROVIDERS: Admitting Provider Clinical Nurse Specialist Psychiatric/Mental Health, Adult; Emergency Provider Emergency Medicine; Visit Provider Radiology Diagnostic Radiology | DX: R93.7 Abnormal findings on diagnostic imaging of other parts of musculoskeletal system (principal) | CPT/HCPCS: 78306 ==

== ENCOUNTER 2024-12-09 13:37 | Outpatient (BNV) | payer MEDICARE, MEDICAID, SELFPAY | END 2024-12-20 20:00 | PROVIDERS: Admitting Provider Clinical Nurse Specialist Psychiatric/Mental Health, Adult; Emergency Provider Emergency Medicine; Visit Provider Radiology Neuroradiology | DX: M27.2 Inflammatory conditions of jaws (principal); J98.11 Atelectasis; K56.41 Fecal impaction | CPT/HCPCS: 70260; 71046; 74018 ==

== ENCOUNTER 2024-12-09 13:37 | Outpatient (BNV) | payer MEDICARE, MEDICAID, SELFPAY | END 2024-12-20 09:00 | PROVIDERS: Admitting Provider Clinical Nurse Specialist Psychiatric/Mental Health, Adult; Emergency Provider Emergency Medicine; Visit Provider Psychiatry & Neurology Neurology | DX: F25.0 Schizoaffective disorder, bipolar type (principal) | CPT/HCPCS: 95816 ==

== ENCOUNTER 2024-12-09 13:37 | Outpatient (BNV) | payer MEDICARE, MEDICAID, SELFPAY | END 2024-12-24 11:51 | PROVIDERS: Admitting Provider Clinical Nurse Specialist Psychiatric/Mental Health, Adult; Emergency Provider Emergency Medicine; Visit Provider Radiology Diagnostic Radiology | DX: F29 Unspecified psychosis not due to a substance or known physiological condition (principal) | CPT/HCPCS: 70551 ==

== ENCOUNTER 2024-12-09 13:37 | Outpatient (BNV) | payer MEDICARE, MEDICAID, SELFPAY | END 2024-12-22 19:14 | PROVIDERS: Admitting Provider Clinical Nurse Specialist Psychiatric/Mental Health, Adult; Emergency Provider Emergency Medicine; Visit Provider Radiology Diagnostic Radiology | DX: R93.0 Abnormal findings on diagnostic imaging of skull and head, not elsewhere classified (principal) | CPT/HCPCS: 70450 ==

== ENCOUNTER → 2024-12-09 13:37 | Outpatient (BNV) | payer MEDICARE, MEDICAID, SELFPAY | PROVIDERS: Admitting Provider Clinical Nurse Specialist Psychiatric/Mental Health, Adult; Emergency Provider Emergency Medicine; Visit Provider Nurse Practitioner Family | DX: R93.0 Abnormal findings on diagnostic imaging of skull and head, not elsewhere classified (principal) | CPT/HCPCS: 99223 ==

== ENCOUNTER → 2024-12-09 13:37 | Outpatient (BNV) | payer MEDICARE, MEDICAID, SELFPAY | PROVIDERS: Admitting Provider Clinical Nurse Specialist Psychiatric/Mental Health, Adult; Emergency Provider Emergency Medicine; Visit Provider Nurse Practitioner Psychiatric/Mental Health | DX: F25.0 Schizoaffective disorder, bipolar type (principal); F43.11 Post-traumatic stress disorder, acute; F10.90 Alcohol use, unspecified, uncomplicated | CPT/HCPCS: 90792; 99231; 99232 ==

== ENCOUNTER → 2024-12-09 13:37 | Outpatient (BNV) | payer MEDICARE, MEDICAID, SELFPAY | PROVIDERS: Admitting Provider Clinical Nurse Specialist Psychiatric/Mental Health, Adult; Emergency Provider Emergency Medicine; Visit Provider Internal Medicine | DX: F25.9 Schizoaffective disorder, unspecified (principal); M89.8X8 Other specified disorders of bone, other site | CPT/HCPCS: 99222 ==

== ENCOUNTER → 2025-01-10 23:59 | Outpatient (BNV) | payer MEDICARE, MEDICAID, SELFPAY | PROVIDERS: PCP Internal Medicine; Visit Provider Internal Medicine | DX: F25.9 Schizoaffective disorder, unspecified (principal); F43.10 Post-traumatic stress disorder, unspecified | CPT/HCPCS: G0180 ==

== ENCOUNTER 2025-01-14 12:51 | Outpatient (AMB) | payer MEDICARE, MEDICAID, SELFPAY ==
--- NOTE | 2025-01-14 13:02 | A.OFFPC_ITS ---
Vital Signs 01/14/25 13:05 Height 5 ft 2 in Weight 238 lb 6 oz BMI 43.6 BP 134/90 H Blood Pressure Location Lt brachial Position Sitting Pulse 90 Pulse Source Pulse Oximeter Temp 97.3 F Temp Source Temporal Artery Scan Pulse Oximetry (%) 95 Oxygen Delivery Method Room Air Intake Visit Reasons: [facility] 12/29 psychiatric unit Intake Note: Patient is here for hospital discharge follow up. Patient was discharged from [facility] on 12/29/24. Power System Operator Required: No Urban [employer] Regional Planner: Not Required per policy Accompanied by: Self / Same As Patient Allergies animal dander (PET DANDER) Allergy (Unknown, Verified 01/14/25 13:05) Itching bee pollen (BEE STINGS) Allergy (Unknown, Verified 01/14/25 13:05) Swelling house dust Allergy (Unknown, Verified 01/14/25 13:05) Unknown shellfish derived (SHELLFISH DERIVED) Allergy (Unknown, Verified 01/14/25 13:05) Swelling Seasonal Allergies Allergy (Verified 01/14/25 13:05) Itching Tobacco use date assessed: 01/14/25 Dental Screening Dental Screen Date: 01/14/25 Did you have a dental visit in the last 12 months?: No Did you have a dental problem in the last 6 months where you did not have access to dental care?: No Was dental information given to patient?: No HPI HPI Comments History of Present Illness Details 39 y/o Female patient [facility]. She was admitted at [facility] Psych Unit on 12/09 - 12/29 for an evaluation of SI and exacerbation of her Schizo-effective disorder. Pt now Lives in a long-term and feels content than being Homeless. She sees a Therapist routinely, await to See Psychiatrist. Denies SI or SA. [facility] Medical History (Updated 01/06/25 @ 00:02 by Sarah Olson) Abnormal CT of the head IUD (intrauterine device) in place Marijuana use Tobacco use Alcohol use Suicidal ideation Suicidal ideation Bipolar disorder Severe asthma with allergic rhinitis Allergic rhinitis Vertigo Surgical History H/O wisdom tooth extraction No pertinent past surgical history Family History Father Lung cancer CVD (cardiovascular disease) Mother Past heart attack Diabetes Emphysema lung CVD (cardiovascular disease) Family/Other FH: mental illness Maternal Grandmother No problems noted. Paternal Grandmother No problems noted. Social History (Updated 01/14/25 @ 13:14 by MIKI Guerra) Household Members: None Housing: Homeless Do you presently have visiting nurse or other home services: No Unable to assess alcohol history related to: Refusing to respond Alcohol intake: current Alcohol intake frequency: a few times a week Alcohol type: hard liquor Comment: close observations at night Patient Tobacco Use Status: Current everyday Tobacco user Tobacco use type: Cigarette Cigarette Packs Per Day: 0.5 Cigarettes Per Day: 6 Years Smoked: 11 Packs Per Year: 6 Packs per year/per ci.30 e-Cigarette/Vaping Use: Never Used Second Hand Smoke Exposure: Yes Substance Use Type: Marijuana service: No Current occupational status: unemployed Sexual orientation: Unable to collect Cognitive needs: No Hearing needs: No Vision needs: No Female Reproductive History Menstrual Age of Menarche: 7 Questionnaire PHQ-9 Over the last 2 weeks, how often have you been bothered by any of the following problems? 1. Little interest or pleasure in doing things: not at all 2. Feeling down, depressed, or hopeless: not at all 3. Trouble falling or staying asleep, or sleeping too much: not at all 4. Feeling tired or having little energy: not at all 5. Poor appetite or overeating: not at all 6. Feeling bad about yourself - or that you are a failure or have let yourself or your family down: not at all 7. Trouble concentrating on things, such as reading the newspaper or watching television: not at all 8. Moving or speaking so slowly that other people could have noticed. Or the opposite - being so fidgety or restless that you have been moving around a lot more than usual: not at all 9. Thoughts that you would be better off or of hurting yourself in some way: not at all Total score: 0 Depression Screening Interpretation: Negative Depression Screening Done: Yes Source: Developed by Drs. Kendall Finney, Yuridia Castle, Waqar Forbes and colleagues, with an educational liyz from [employer]. Thrive Questionnaire Date Thrive assessed: 12/13/24 I am a: Patient What is your living situation today?: I have a steady place to live Within the past 12 months, did the food you bought not last and you didn't have the money to get more?: Sometimes True Within the past 12 months, did you worry whether your food would run out before you got money to buy more?: Sometimes True Do you have trouble paying for medicines?: Yes Do you have trouble getting transportation to medical appointments?: Yes Do you have trouble paying your heating and electricity bill?: No Do you have trouble taking care of your child, family member or friend?: No Do you have trouble with day-to-day activities such as bathing, preparing meals, shopping, managing finances, etc.?: No Are you currently unemployed and looking for a job?: I choose not to answer this question Are you interested in more education?: I choose not to answer this question Please select the resources that you would like help with: Housing/Detention, Food, Paying for medicine, Transportation and Utilities Currently or been in a relationship where the following occur: No concerns reported THRIVE Score: 3 AUDIT C Alcohol Use Questionnaire (AUDIT-C) 1. How often do you have a drink containing alcohol?: Never Total Score: 0 ELIAS-7 AMB Questionnaire ELIAS-7 Date ELIAS - 7 assessed: 01/14/25 (pt taking medication ) Feeling nervous, anxious, or on edge: 0 = Not at all Not being able to stop or control worryin = Not at all Worrying too much about different things: 0 = Not at all Trouble relaxin = Not at all Being so restless that it is hard to sit still: 0 = Not at all Becoming easily annoyed or irritable: 0 = Not at all Feeling afraid as if something awful might happen: 0 = Not at all Total ELIAS-7 score (0-4 normal; 5-9 mild; 10-14 moderate; 15-21 severe): 0 Source: Developed by Drs. Kendall Finney, Yuridia Castle, Waqar Forbes and colleagues, with an educational lizy from [employer]. Review of Systems Const All systems reviewed & are unremarkable except as noted in HPI and below Physical exam (Primary Care) Vital Signs: Last Vital Signs Temp 97.3 F 01/14/25 13:05 Pulse 90 01/14/25 13:05 BP 134/90 H 01/14/25 13:05 Pulse Ox 95 01/14/25 13:05 Oxygen Delivery Method Room Air 01/14/25 13:05 BMI result Body Mass Index 43.6 Tobacco/Smoking Status: Tobacco use Status Tobacco use date assessed 01/14/25 01/14/25 13:15 Patient Tobacco Use Status Current everyday Tobacco 01/14/25 13:14 Tobacco use type Cigarette 01/14/25 13:14 e-Cigarette/Vaping Use Never Used 01/14/25 13:14 PHQ-9: PHQ-9 Score PHQ-9: Total score 0 01/14/25 13:04 Depression Screening Interpretation: Negative Thrive Assessment: Date of Thrive Assessment Date Thrive assessed 12/13/24 01/14/25 13:04 Currently or been in a relationship where the following occur: No concerns reported Const General: cooperative and no acute distress Nutritional Appearance: obese Orientation/consciousness: patient oriented x3 Neuro General: patient oriented x3, gait normal and moves all extremities Psych Speech and movement: Normal speech and movement present Attitude: cooperative Thought content: suicidality, no homicidality and no delusions Coding Level of Care Code Est Pt Level 4 (79801) Diagnoses Schizoaffective disorder F25.9 Schizoaffective disorder type: unspecified Time Spent (min) 20 Assessment & Plan Assessment & Plan (1) Schizoaffective disorder: Code(s): F25.9 - Schizoaffective disorder, unspecified Category: Medical Qualifiers: Schizoaffective disorder type: unspecified Qualified Code(s): F25.9 - Schizoaffective disorder, unspecified Plan: Stable. Managed by Psych
[2025-01-14 13:05] VITALS: BP 134/90; PULSE 90; TEMP 36.3; O2SAT 95; BMI 43.6
--- OUTSIDE RECORDS SUMMARY | 2025-01-14 15:13 | XMS_ITS | Clinical Summary ---
Author Organization [facility] Address [address] [place] [address] Phone Care Team Providers Care Maintenance Coordinator Name Role Phone Physician, Pcp Unknown Primary [...] Cervical Cancer Screening: P ap Smear 07/07/2004 Depression Screening 05/05/2024 HIV Screening 08/02/2024 Hepatitis C Screening 08/02/2024 Social Influencers of Health Screening 08/02/2024 COVID-19 Vaccine (1 - 2023-2 5 season) 2025 Influenza Vaccine (#1) 2025 Cholesterol Screening (Lipid [...] patient's age to complete this topic Insurance [facility] Member Subscriber Plan / Payer (Ef fective 2024-Present) Name:Samaria Corley Member ID:[id number] Relation to Subscriber:Self Name:Samaria Corley Subscriber ID:[id number] Payer ID:[id number] Group ID:Not on file Type:Not on file Address: [address] [id number] Care Teams Maintenance Coordinator Relationship Specialty Start Date End Date Physician, Pcp Unknown PCP - General 08/02/24
--- OUTSIDE RECORDS SUMMARY | 2025-01-14 15:13 | XMS_ITS | Clinical Summary ---
Author Organization [facility] Address [address] [place] [address] Care Team Providers Care Sales Recruitment Specialist Name Role Phone Roxie Guevara MD Primary Care Provider [phone] Allergies Active Allergy Reactions Criticality Noted Date [...] Never Assessed Tobacco Cessation:Counseling Given: Not Answered [facility] Utilities Answer Date Recorded In the past 12 months has e [place], [employer], oil, or water [employer] threatened to shut off services in your [...] in a long-term (including now)? No 01/13/2024 Comments Unknown Sex [...] series) 07/07/2002 Pap Smear (Ages 21-65) 07/07/2004 HPV Vaccines (1 - 3-dose SCD M series) 07/07/2010 Mammogram 2023 Influenza Vaccine 12/03/2024 COVID-19 Vaccine ( - 2023-2 5 season) 2025 Pneumococcal Vaccine: Pediat elton (0-5 Years) and At-Risk Patients (6 to 49 Years) Aged Out No longer eligible b ased on patient's age to complete this topic Insurance MEDICARE PART A [place] [facility] OUT OF NETWORK [facility] Advance Directives * Full Code (Latest Code Status on File) Date Activated Date Inactivated Comments 01/11/2024 12:44 PM Care Teams Sales Recruitment Specialist Relationship Specialty Start Date End Date Roxie Guevara MD [address] [place] [address] PCP - General Family Medicine 01/13/24
== END 2025-01-14 13:55 | disposition home or self-care (01) ==
LOC: HO.HMCH 12:51
PROVIDERS: Visit Provider Nurse Practitioner Family
DX: F25.9 Schizoaffective disorder, unspecified (principal)

== ENCOUNTER → 2025-01-14 12:51 | Outpatient (BNVA) | payer OTHER, SELFPAY | PROVIDERS: Visit Provider Nurse Practitioner Family | DX: F25.9 Schizoaffective disorder, unspecified (principal) | CPT/HCPCS: 96127; 99212 ==

== ENCOUNTER 2025-02-11 11:39 | Outpatient (REF) | payer OTHER, SELFPAY ==
[2025-02-12 08:38] LABS: HBS Num1 7.57 mIU/mL (0-7.99); HBc Num1 0.08 S/CO (0.00-0.79); HBsAGNum1 0.37 S/CO (0.00-0.99); Hepatitis B Surface Antigen Negative (Negative); ~HepC Num1 0.10 S/CO (0.00-0.79); ~Hepatitis B Surface Antibody NONREACTIVE (Nonreactive); ~Hepatitis C Antibody Nonreactive (Nonreactive)
== END 2025-02-11 11:40 | disposition home or self-care (01) ==
LOC: HO.LAB 11:39
PROVIDERS: PCP Internal Medicine; Visit Provider Internal Medicine
DX: Z20.5 Contact with and (suspected) exposure to viral hepatitis (principal); Z01.84 Encounter for antibody response examination
CPT/HCPCS: 36415; 86704; 86706; 86803; 87340

== ENCOUNTER 2025-03-10 08:08 | Outpatient (AMB) | payer OTHER, SELFPAY ==
--- NOTE | 2025-03-10 08:14 | MHC.PC.OV ---
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 Accompanied by: Self / Same As Patient Allergies animal dander (PET DANDER) Allergy (Unknown, Verified 03/10/25 08:45) Itching bee pollen (BEE STINGS) Allergy (Unknown, Verified 03/10/25 08:45) Swelling house dust Allergy (Unknown, Verified 03/10/25 08:45) Unknown shellfish derived (SHELLFISH DERIVED) Allergy (Unknown, Verified 03/10/25 08:45) Swelling Seasonal Allergies Allergy (Verified 03/10/25 08:45) Itching Medication List - Last Reconciled 03/10/25 by Roxie Francis MD acetaminophen 650 mg (2 x 325 mg) PO Q6H PRN albuterol sulfate 90 mcg/actuation (Ventolin HFA) 2 puffs inhalation QID PRN 30 days atorvastatin 10 mg PO BEDTIME 30 days cetirizine 10 mg PO DAILY PRN 30 days diphenhydramine HCl (Banophen) 50 mg (2 x 25 mg) PO BID PRN divalproex ER 1,000 mg (2 x 500 mg) PO BEDTIME fluticasone furoate-vilanterol 100-25 mcg/dose (Breo Ellipta) 1 inh inhalation RDAILY 30 days fluticasone propionate 50 mcg/actuation 1 spray intranasal DAILY 30 days haloperidol 7.5 mg (1.5 x 5 mg) PO BID haloperidol decanoate (Haldol Decanoate) 200 mg IM Q4W hydroxyzine HCl 25 mg PO Q6H PRN meclizine 12.5 mg PO Q8H PRN melatonin 10 mg PO BEDTIME montelukast 10 mg PO DAILY nabumetone 500 mg PO BID nicotine 1 patch transdermal DAILY olanzapine 10 mg PO BID 30 days omeprazole 20 mg PO DAILY tiotropium bromide 2.5 mcg/actuation (Spiriva Respimat) 2 puffs inhalation RDAILY trazodone 50 mg PO BEDTIME PRN Tobacco use date assessed: 03/10/25 Dental Screening Dental Screen Date: 03/10/25 Did you have a dental visit in the last 12 months?: No Did you have a dental problem in the last 6 months where you did not have access to dental care?: No Was dental information given to patient?: No HPI HPI Comments History of Present Illness Details The patient is a 39-year-old female presenting for review of an incidental finding and chronic disease management. 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 She reports experiencing chest pain and shortness of breath. The patient has a history of severe asthma and has not been followed by a intertype operator for a long time. She reports frequent use of her rescue inhaler. She has a BMI of 46.2, consistent with morbid obesity, and has not previously seen a weight resource management planner. Her psychiatric history includes bipolar disorder, managed with divalproex and injectable Haldol every four weeks, and she is in the process of establishing care with a new psychiatrist. She also takes atorvastatin 10 mg for hyperlipidemia and nitrofurantoin daily. The patient has known allergies to animal dander, bees, house dust, shellfish, and seasonal allergens. She is a current smoker, consuming about five cigarettes per day. Regarding preventative care, the patient is 39 years old and has never had a mammogram. [facility] Medical History (Updated 03/10/25 @ 09:00 by Roxie Francis MD) GERD (gastroesophageal reflux disease) Abnormal CT of the head IUD (intrauterine device) in place Marijuana use Tobacco use Alcohol use Suicidal ideation Suicidal ideation Bipolar disorder Severe asthma with allergic rhinitis Allergic rhinitis Vertigo Surgical History H/O wisdom tooth extraction No pertinent past surgical history Family History Father Lung cancer CVD (cardiovascular disease) Mother Past heart attack Diabetes Emphysema lung CVD (cardiovascular disease) Family/Other FH: mental illness Maternal Grandmother No problems noted. Paternal Grandmother No problems noted. Social History Household Members: None Housing: Homeless Do you presently have visiting nurse or other home services: No Alcohol intake: current Alcohol intake frequency: a few times a week Alcohol type: hard liquor Comment: close observations at night Patient Tobacco Use Status: Current everyday Tobacco user Tobacco use type: Cigarette Cigarette Packs Per Day: 0.5 Cigarettes Per Day: 6 Years Smoked: 11 e-Cigarette/Vaping Use: Never Used Second Hand Smoke Exposure: Yes Substance Use Type: Marijuana service: No Current occupational status: unemployed Sexual orientation: Unable to collect Cognitive needs: No Hearing needs: No Vision needs: No Female Reproductive History Menstrual Age of Menarche: 7 Questionnaire PHQ-9 Over the last 2 weeks, how often have you been bothered by any of the following problems? 1. Little interest or pleasure in doing things: not at all 2. Feeling down, depressed, or hopeless: not at all 3. Trouble falling or staying asleep, or sleeping too much: not at all 4. Feeling tired or having little energy: not at all 5. Poor appetite or overeating: not at all 6. Feeling bad about yourself - or that you are a failure or have let yourself or your family down: not at all 7. Trouble concentrating on things, such as reading the newspaper or watching television: not at all 8. Moving or speaking so slowly that other people could have noticed. Or the opposite - being so fidgety or restless that you have been moving around a lot more than usual: not at all 9. Thoughts that you would be better off or of hurting yourself in some way: not at all Total score: 0 Depression Screening Interpretation: Negative Depression Screening Done: Yes 68475 - PHQ-9 Billing: Yes Source: Developed by Drs. Kendall Finney, Yuridia Castle, Waqar Forbes and colleagues, with an educational lizy from [employer]. Thrive Questionnaire Date Thrive assessed: 01/14/25 I am a: Patient What is your living situation today?: I have a steady place to live Within the past 12 months, did the food you bought not last and you didn't have the money to get more?: Sometimes True Within the past 12 months, did you worry whether your food would run out before you got money to buy more?: Sometimes True Do you have trouble paying for medicines?: Yes Do you have trouble getting transportation to medical appointments?: Yes Do you have trouble paying your heating and electricity bill?: No Do you have trouble taking care of your child, family member or friend?: No Do you have trouble with day-to-day activities such as bathing, preparing meals, shopping, managing finances, etc.?: No Are you currently unemployed and looking for a job?: I choose not to answer this question Are you interested in more education?: I choose not to answer this question Currently or been in a relationship where the following occur: No concerns reported THRIVE Score: 3 AUDIT C Alcohol Use Questionnaire (AUDIT-C) 1. How often do you have a drink containing alcohol?: Never 3. How often do you have six or more drinks on one occasion?: Never Total Score: 0 Score Reviewed/Action Taken: No ELIAS-7 AMB Questionnaire ELIAS-7 Date ELIAS - 7 assessed: 01/14/25 (pt taking medication ) Feeling nervous, anxious, or on edge: 0 = Not at all Not being able to stop or control worryin = Not at all Worrying too much about different things: 0 = Not at all Trouble relaxin = Not at all Being so restless that it is hard to sit still: 0 = Not at all Becoming easily annoyed or irritable: 0 = Not at all Feeling afraid as if something awful might happen: 0 = Not at all Total ELIAS-7 score (0-4 normal; 5-9 mild; 10-14 moderate; 15-21 severe): 0 Source: Developed by Drs. Kendall Finney, Yuridia Castle, Waqar Forbes and colleagues, with an educational lizy from [employer]. ELIAS-7 Assessment Billing ELIAS-7 Assessment Tool: ELIAS-7 Assessment 23945 Review of Systems Const All systems reviewed & are unremarkable except as noted in HPI and below Card Denies chest pain at rest, Denies chest pain with activity, Denies edema, Denies irregular heart rhythm, Denies claudication, Denies dyspnea, Denies dyspnea on exertion, Denies orthopnea, Denies paroxysmal nocturnal dyspnea and Denies slow heart rate Resp Denies cough, Denies dyspnea and Denies dyspnea on exertion GI Denies abdominal pain, Denies change in bowel habits, Denies excessive flatus, Denies nausea and Denies vomiting Physical exam (Primary Care) Vital Signs: Last Vital Signs Temp 97.1 F 03/10/25 08:16 Pulse 103 H 03/10/25 08:16 BP 128/84 03/10/25 08:16 Pulse Ox 94 03/10/25 08:16 Oxygen Delivery Method Room Air 03/10/25 08:16 BMI result Body Mass Index 46.2 BMI Assessment/Plan discussion: High BMI High, discussed plan: lifestyle, weight reduction, dietary and physical activity Tobacco/Smoking Status: Tobacco use Status Tobacco use date assessed 03/10/25 03/10/25 08:22 Patient Tobacco Use Status Current everyday Tobacco 03/10/25 08:15 Tobacco use type Cigarette 03/10/25 08:15 e-Cigarette/Vaping Use Never Used 03/10/25 08:15 Are you ready to quit: No Tobacco cessation counseling provided: Yes Items discussed: Nicotine replacement Relapse Prevention: discussed the importance of a supportive environment and discussed extending NRT Number of minutes spent counselin CPT code: Less than 3 minutes PHQ-9: PHQ-9 Score PHQ-9: Total score 0 03/10/25 08:22 Depression Screening Interpretation: Negative Thrive Assessment: Date of Thrive Assessment Date Thrive assessed 01/14/25 03/10/25 08:15 Currently or been in a relationship where the following occur: No concerns reported Resp Effort & Inspection: normal respiratory effort Auscultation: clear to auscultation bilaterally Cardio Jugular venous distension: no JVD Rate: regular rate Rhythm: regular rhythm Heart sounds: S1 normal heart sound present and S2 normal heart sound present Extrem General: Yes full ROM Coding Level of Care Code Est Pt Level 4 (68415) Complex EM visit Add On G2211 Diagnoses Severe asthma with allergic rhinitis J45.909 Bipolar 1 disorder F31.9 Morbid obesity with BMI of 45.0-49.9, adult E66.01; Z68.42 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 Additional Codes PHQ-9 - 89832 - PHQ-9 Billing: Yes ([id number]) ELIAS-7 Assessment Billing - ELIAS-7 Assessment Tool: ELIAS-7 Assessment 22841 ([id number]) Time Spent (min) 24 Assessment & Plan Assessment & Plan (1) Severe asthma with allergic rhinitis: Code(s): J45.909 - Unspecified asthma, uncomplicated Category: Medical (2) Bipolar 1 disorder: Code(s): F31.9 - Bipolar disorder, unspecified Category: Medical (3) Morbid obesity with BMI of 45.0-49.9, adult: Code(s): E66.01 - Morbid (severe) obesity due to excess calories; Z68.42 - Body mass index [BMI] 45.0-49.9, adult Category: Medical (4) 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 A referral will be placed to a thoracic surgeon for further evaluation and management. 2. Severe Persistent Asthma The patient has a history of severe asthma, has not seen a intertype operator in a long time, and reports frequent use of her rescue inhaler. A referral will be placed to pulmonology for specialized management. 3. Morbid Obesity The patient has a BMI of 46.2, consistent with morbid obesity. She expressed interest in seeing a specialist, so a referral to weight management will be placed. 4. Bipolar Disorder The patient is establishing care with a new psychiatrist tomorrow for ongoing management of her bipolar disorder and for medication refills. 5. Hyperlipidemia The patient takes atorvastatin for hyperlipidemia. Fasting labs will be ordered to monitor her cholesterol. 6. Health Maintenance An order for a screening mammogram will be placed as the patient is 39 and has never had one. The patient declined the influenza vaccine at this visit. An EKG will be ordered as part of her general workup. Prescriptions will be sent to [facility]. Orders: Orders Vitamin B12 and Folate Today E53.8 - Deficiency of other specified B group vitamins Vitamin D 25-OH Total Today E55.9 - Vitamin D deficiency, unspecified MM tomosynthesis screening BI Today Z12.31 - Encounter for screening mammogram for malignant neoplasm of breast Complete Blood Count Auto Diff Today D64.9 - Anemia, unspecified IRON PROFILE Today D64.9 - Anemia, unspecified Lipid Panel Today E78.5 - Hyperlipidemia, unspecified Comprehensive [place]. Panel Fast Today E66.01 - Morbid (severe) obesity due to excess calories, Z68.42 - Body mass index [BMI] 45.0-49.9, adult Thyroid Stimulating Hormone Today E66.01 - Morbid (severe) obesity due to excess calories, Z68.42 - Body mass index [BMI] 45.0-49.9, adult Referrals Medical Weight Management Referral E66.01 - Morbid (severe) obesity due to excess calories, Z68.42 - Body mass index [BMI] 45.0-49.9, adult Thoracic/General Surgery Referral D49.89 - Neoplasm of unspecified behavior of other specified sites Pulmonology Referral J45.909 - Unspecified asthma, uncomplicated Medications: Changed From melatonin 10 mg PO BEDTIME To melatonin 10 mg PO BEDTIME 90 tabs 1RF 90 days From montelukast 10 mg PO DAILY 30 tabs 0RF To montelukast 10 mg PO DAILY 30 tabs 6RF 30 days From omeprazole 20 mg PO DAILY 30 caps 0RF K21.9 - Gastro-esophageal reflux disease without esophagitis To omeprazole 20 mg PO DAILY 30 caps 6RF 30 days K21.9 - Gastro-esophageal reflux disease without esophagitis From acetaminophen 650 mg (2 x 325 mg) PO Q6H PRN 0 tabs 0RF Headache/Pain, Scale 1-10 To acetaminophen 650 mg (2 x 325 mg) PO Q6H PRN 120 tabs 6RF Headache/Pain, Scale 1-10 30 days From nabumetone 500 mg PO BID 60 tabs 0RF To nabumetone 500 mg PO BID 60 tabs 6RF 30 days Refilled fluticasone furoate-vilanterol 100-25 mcg/dose (Breo Ellipta) 1 inh inhalation RDAILY 1 inhaler 0RF 30 days fluticasone propionate 50 mcg/actuation administer into each nostril 1 spray intranasal DAILY 1 inhaler 0RF 30 days meclizine 12.5 mg PO Q8H PRN 60 tabs 0RF dizziness atorvastatin 10 mg PO BEDTIME 30 tabs 6RF 30 days albuterol sulfate 90 mcg/actuation (Ventolin HFA) 2 puffs inhalation QID PRN 1 inhaler 2RF Shortness Of Breath 30 days cetirizine 10 mg PO DAILY PRN 30 tabs 6RF Allergy Symptoms 30 days
[2025-03-10 08:16] VITALS: BP 128/84; PULSE 103; TEMP 36.2; O2SAT 94; BMI 46.2
--- OUTSIDE RECORDS SUMMARY | 2025-03-10 08:25 | XMS_ITS | Clinical Summary ---
Author Organization [facility] Address [address] [place] [address] Care Team Providers Care General Inspector Name Role Phone Roxie Guevara MD Primary Care Provider Allergies Active Allergy Reactions Criticality Noted Date Comments Bee Venom Anaphylaxis High 01/10/2024 Shellfish Protein-Containing Drug Products Anaphylaxis High 01/10/2024 Medications acetaminophen (TYLENOL) 650 MG CR tablet [...] Never Assessed Tobacco Cessation:Counseling Given: Not Answered [facility] Utilities Answer Date Recorded In the past 12 months has [employer], [employer], [employer], or water [employer] threatened to shut off services in your [...] No 01/13/2024 Housing Stability Vital Sign Answer Anv e Recorded In the last 12 months, [...] place to sleep or slept in a skilled nursing (including now)? No 01/13/2024 Comments Unknown Sex [...] (Ages 21-65) 07/07/2004 Mammogram 2023 Influenza Vaccine 12/03/2024 COVID-19 Vaccine (1 - 2023-2 5 season) 2025 HPV Vaccines (No Doses Required) Completed Pneumococcal Vaccine: Pediat elton (0-5 Years) and At-Risk Patients (6 to 49 Years) Aged Out No longer eligible b ased on patient's age to complete this topic Insurance MEDICARE PART A & B [facility] [place] OUT OF [place]WORK [facility] Advance Directives * Full Code (Latest Code Status on File) Date Activated Date Inactivated Comments 01/11/2024 12:44 PM Care Teams General Inspector Relationship Specialty Start Date End Date Roxie Guevara MD [address] [place] [address] PCP - General Family Medicine 01/13/24
== END 2025-03-10 08:56 | disposition home or self-care (01) ==
LOC: HO.HMCH 08:09
PROVIDERS: Visit Provider Internal Medicine
DX: J45.909 Unspecified asthma, uncomplicated (principal); F31.9 Bipolar disorder, unspecified; E66.01 Morbid (severe) obesity due to excess calories; Z68.42 Body mass index [BMI] 45.0-49.9, adult; D49.89 Neoplasm of unspecified behavior of other specified sites

== ENCOUNTER → 2025-03-10 08:08 | Outpatient (BNVA) | payer OTHER, SELFPAY | PROVIDERS: Visit Provider Internal Medicine | DX: E66.01 Morbid (severe) obesity due to excess calories (principal); R07.9 Chest pain, unspecified; R06.02 Shortness of breath; J45.909 Unspecified asthma, uncomplicated; F31.9 Bipolar disorder, unspecified; D49.89 Neoplasm of unspecified behavior of other specified sites; K21.9 Gastro-esophageal reflux disease without esophagitis; E78.5 Hyperlipidemia, unspecified; Z68.42 Body mass index [BMI] 45.0-49.9, adult; Z79.51 Long term (current) use of inhaled steroids | CPT/HCPCS: 96127; 99212 ==